=== PATIENT | female | born 1960 | race Caucasian/White ===

== ENCOUNTER 2016-08-02 21:51 | Inpatient (IN) | payer MEDICARE ==
[~2016-08-02] VITALS: Ht 157.5 cm; Wt 69.7 kg
--- NOTE | ~2016-08-02 | CN ---
PATIENT NAME:LANE ONEAL MEDICAL RECORD: [id number] : 62 LOCATION:[facility].2102 ADMIT DATE: 08/02/16 ACCOUNT: [id number] CONSULTING PHYSICIAN: MOI HANKINS MD REFERRING PHYSICIAN: FAIZAN SCOTT MD DATE OF CONSULTATION: 08/03/2016 Consultation Note CONSULT REQUESTING PHYSICIAN: Faizan Scott MD REASON FOR CONSULTATION: Acute exacerbation of chronic obstructive pulmonary disease and asthma. HISTORY OF PRESENT ILLNESS: Ms. Oneal is a 56-year-old female, who has a history of asthma and COPD and she states she still everyday smoker. According to the patient, she is sick for the last 1-1/2 week. Initially, she was tired. She has allergy. She was coughing and wheezing. The cough was mainly dry. She has shortness of breath with mild exertion. When she coughs, she has a pleuritic type of chest pain. The patient came into the ER last night for further evaluation and admitted for COPD exacerbation. REVIEW OF SYSTEMS: Mainly in the history of present illness. PAST MEDICAL HISTORY: 1. History of rheumatic fever. 2. History of rheumatic heart disease. 3. History of Sydenham chorea. 4. History of arthritis. 5. History of pulmonary embolism 2 years ago. PAST SURGICAL HISTORY: 1. She has a liver biopsy. 2. She has a cholecystectomy. ALLERGIES: SHE IS ALLERGIC TO IV DYE, SULFA, PENICILLIN AND LATEX. PRESENT MEDICATIONS: On [employer] was reviewed. PERSONAL AND SOCIAL HISTORY: The patient is still smoking 1 pack per day. She is a nondrinker. FAMILY HISTORY: Noncontributory. PHYSICAL EXAMINATION: GENERAL: Now, the patient is lying comfortably in bed. She is not in acute distress. VITAL SIGNS: The blood pressure is 118/87, pulse is 89, respirations 18, temperature 98.1, and SPO2 is 93% on 2 liters nasal cannula. HEENT: Conjunctivae are pink. Sclerae nonicteric. NECK: Supple, no JVD. CHEST: There is prolonged expiration with wheezing. There are no crackles. HEART: Rhythm regular, a grade II/ systolic murmur. ABDOMEN: Soft. Bowel sounds present. No hepatosplenomegaly. RECTAL: Deferred. CONSULT REPORT [id number] LANE ONEAL EXTREMITIES: No cyanosis, no clubbing. CENTRAL NERVOUS SYSTEM: The patient is awake and alert. There is no obvious cranial nerve abnormality. The gait was not tested. LABORATORY DATA: CBC: WBC 5.6, hemoglobin 16.3, hematocrit 52, the platelet count is 174. Chemistry: Sodium 140, potassium 4.5, BUN is 7, creatinine 0.8. Liver enzymes within normal range. The proBNP 219. Albumin is 3.3. CHEST RADIOGRAPH: There is hyperinflation. There are no acute infiltrate. IMPRESSION: 1. Acute exacerbation of chronic obstructive pulmonary disease secondary to #2. 2. Tracheobronchitis. 3. Asthma, chronic obstructive pulmonary disease overlap syndrome. 4. Dyspnea. 5. Tobacco dependence syndrome. 6. History of pulmonary embolism. 7. History of rheumatic heart disease. 8. Gastroesophageal reflux disease. RECOMMENDATION: 1. Albuterol/ipratropium nebulizer. 2. Brovana and budesonide nebulizer. 3. Discontinue Advair. 4. Adjust the dose of methylprednisolone IV. 5. Follow up labs and chest radiograph in the morning. The patient's D-dimer is negative, less likely pulmonary embolism. Discontinue the CTA of the chest. Dr. Scott, once again thanks for involving me in the care of Ms. Oneal. TRANSINT:[id number] Voice Confirmation ID: [id number] DOCUMENT ID: [id number] MOI HANKINS MD CC: FAIZAN SCOTT MD [id number] DICTATION DATE: 08/03/16 140 FIXTURE MAKER: 08/03/16 1651 ADM IN [place] [id number] [place] [address]
--- NOTE | ~2016-08-02 | EC ---
PATIENT:LANE ONEAL DATE OF SERVICE: 08/02/16 SEX: F MEDICAL RECORD: [id number] DATE OF : 62 LOCATION:D.M2 D.210 AGE OF PATIENT: 56 ADMISSION DATE: 08/02/16 REFERRING PHYSICIAN: INTERPRETING PHYSICIAN: KADIE WOMACK MD ECHOCARDIOGRAM REPORT ECHO CHARGES 4 ECHO COMPLETE CLINICAL DIAGNOSIS: DYSPNEA,CHEST PAIN HX OF RHEUMATIC FEVER ECHOCARDIOGRAPHIC MEASUREMENTS (adult normal given) AC root (d.<3.7cm) 3.1 LV Septum d (<1.2 cm> 1.4 Valve Excursion 1.9 LV Septum (systole) 1.5 Left Atria (s.<4.0cm> 3.2 LVPW d(<1.2cm) 1.4 RV (d.<2.3cm) 2.8 LVPW (sytole) 1.7 LV diastole(<5.6CM) 4.4 MV E-F(>70mm/sec) LV systole 2.8 LVOT Diameter 1.6 MV exc.(>10mm) 1.8 Est.ejection fraction (50-75%) Pericardial Effusion N DOPPLER: LVIT A 93.0 E 119 LA RVSP 21 LVOT 128 AOP1/2T Asc. Ao 174 RVOT 73 RA PA 148 AV Gradient Peak 12.13 AV Mean 6.76 AV Area 1.5 MV Gradient Peak 9.03 MV Mean 3.83 MV Area COMMENTS: Senior Cytotechnologist: Alexia KWOK Armature Coil Winder:Federica Johnson TAPE# PACS DATE OF SERVICE: 08/03/2016 FINDINGS: 1. Left ventricular chamber size is within normal limits. Left ventricular systolic function is normal. Overall ejection fraction estimated at 60%. 2. Left atrium, right atrium, right ventricular chamber sizes are within normal limits. 3. Valvular structures have normal structure and motion. 4. Doppler interrogation reveals mild mitral regurgitation, mild tricuspid regurgitation, no other valvular insufficiency or stenosis. ECHOCARDIOGRAM REPORT [id number] LANE ONEAL 5. No evidence of pericardial effusion or left ventricular thrombus. TRANSINT:[id number] Voice Confirmation ID: [id number] DOCUMENT ID: [id number] KADIE WOMACK MD CC: [id number] DICTATION DATE: 08/04/161742 WATERSIDE WORKER: 08/05/16 0336 ADM IN [facility] [address] [facility] [place] [id number]
[2016-08-02 22:58] LABS: BASOPHILS 0.4 % (0-2); EOSINOPHILS 1.2 % (0-7); HEMOGLOBIN 16.3 g/dL (12-16); IMMATURE GRANULOCYTES 0.2 % (0-5); LYMPHOCYTES 36.7 % (15-50); MCH 31.1 pg (26.0-34.0); MCHC 31.3 g/dL (31.0-37.0); MCV 99.2 fL (80.0-100.0); MEAN PLATELET VOLUME 9.5 fL (7.4-10.4); MONOCYTES 8.5 % (2-11); PLATELET COUNT 174 10x3/uL (130-400); RBC 5.24 10x6/uL (4.00-5.40); RDW 13.5 % (11.5-14.5); WBC 5.6 10x3/uL (4.8-10.8)
[2016-08-02 23:09] LABS: ALBUMIN 3.3 g/dL (3.4-5.0); ALKALINE PHOSPHATASE 87 U/L (46-116); ALT (SGPT) 18 U/L (10-68); BILIRUBIN - TOTAL 0.59 mg/dL (0.2-1.3); CALC OSMOLALITY 276 mosm/kg (275-300); CALCIUM 8.8 mg/dL (8.5-10.1); CARBON DIOXIDE 33.3 mmol/L (21.0-32.0); CHLORIDE - SERUM 103 mmol/L (98-107); CREATININE - SERUM 0.8 mg/dL (0.6-1.3); GLUCOSE 90 mg/dL (74-106); POTASSIUM - SERUM 4.5 mmol/L (3.5-5.1); PROTEIN - SERUM 6.8 g/dL (6.4-8.2); SODIUM 140 mmol/L (136-145); UREA NITROGEN 7 mg/dL (7-18); eGFR NON AFRICAN AMERICAN 79 mL/min (90-120)
[2016-08-02 23:17] LABS: PRO BNP 219 pg/mL (0-125); TROPONIN-I < 0.017 ng/mL (0.000-0.060)
[2016-08-03] VITALS (7 sets, daily range): BP systolic 116–168; BP diastolic 52–94; BMI 25.6
[2016-08-03] MEDS ORDERED: CORGARD40 MG PO (01:44)
[2016-08-03] MEDS ORDERED: K-DUR20 MEQ PO (01:45)
[2016-08-03] MEDS ORDERED: SINGULAIR10 MG PO (01:46)
[2016-08-03] MEDS ORDERED: FUROSEMIDE20 MG PO (01:46)
[2016-08-03] MEDS ORDERED: ADVAIR 500/501 DISK INH (01:47)
[2016-08-03] MEDS ORDERED: PROVENTIL/2.5 MG/3 M INH (01:48)
[2016-08-03] MEDS ORDERED: MUCINEX1200 MG/BO PO (01:49)
[2016-08-03] MEDS ORDERED: PROTONIX20 MG PO (01:50)
[2016-08-03] MEDS ORDERED: CARAFATE1 G/10 ML PO (01:50)
[2016-08-03] MEDS ORDERED: OMEPRAZOLE40 MG PO (01:51)
[2016-08-03] MEDS ORDERED: PAXIL20 MG PO (01:52)
[2016-08-03] MEDS ORDERED: XANAX2 MG PO (01:52)
[2016-08-03] MEDS ORDERED: NYSTATIN ORAL SU5 ML PO (01:55)
[2016-08-03] MEDS ORDERED: NYSTATIN OINTME15 GM TOPICAL (01:56)
[2016-08-03] MEDS ORDERED: ZANAFLEX4 MG PO (01:57)
[2016-08-03] MEDS ORDERED: VITAMIN B-1000 MCG/M (02:07)
--- NOTE | 2016-08-03 04:08 | NUR ---
PT C/O BACK PAIN, GAVE NORCO 7.5. WILL CONTINUE TO MONITOR
--- NOTE | 2016-08-03 07:19 | NUR ---
0705-AM ROUNDING DONE WITH PATIENT SITTING UP IN THE BED WITH COMPLAINTS OF THROAT STARTING TO HURT "A LITTLE MORE THAN LAST NIGHT". ON 2L PER NC. SALINE LOCK SEEN TO RIGHT WRIST, ORANGE CAP PLACED. WILL MONITOR.
--- NOTE | 2016-08-03 08:00 | NUR ---
NORCO GIVEN FOR PAIN 9/10 TO HEAD, BACK, AND NECK.
--- NOTE | 2016-08-03 14:40 | NUR ---
BILATERAL SCD'S PLACED ON PATIENT ALONG WITH HEART MONITOR.
--- NOTE | 2016-08-03 15:01 | NUR ---
ON HEART MONITOR SHOWING SR,
--- NOTE | 2016-08-03 15:06 | NUR ---
CALL PLACED TO AMINA DAHL APN R/T B/P 116/68 AND ANGE. AWAITING CALL BACK.
--- NOTE | 2016-08-03 15:32 | NUR ---
SPOKE WITH DR FRANKS AND AMINA DAHL APN AND WILL HOLD ANGE TODAY.
--- NOTE | 2016-08-03 17:33 | NUR ---
SITTING UP IN BED EATING SUPPER, SCD'S OFF AT PRESENT TIME. WILL CONTINUE TO MONITOR.
--- NOTE | 2016-08-03 22:37 | NUR ---
NURSING ROUNDS 21:00 - PT AWAKE, ALERT, ORIENTED, STATING THE UPDRAFT HAS HELPED QUITE A BIT. PT IS C/O NOT BEING ABLE TO SLEEP R/T THE STEROIDS. PT DENIES ANY OTHER NEEDS OR CONCERNS. CONTINUE TO MONITOR CLOSELY.
--- NOTE | 2016-08-04 01:53 | NUR ---
PT AWAKE, ALERT, ORIENTED, C/O NOT BEING ABLE TO SLEEP. REQUESTED FOOD, GAVE HER A TURKEY SANDWICH AND GRAPES, AND [place] [place] [employer]. PT DENIES ANY OTHER NEEDS. CONTINUE TO MONITOR CLOSELY.
[2016-08-04 03:42] VITALS: BP 127/77
[2016-08-04 05:26] LABS: BASOPHILS 0 % (0-2); EOSINOPHILS 0 % (0-7); HEMATOCRIT 48.1 % (36.0-48.0); HEMOGLOBIN 15.1 g/dL (12-16); IMMATURE GRANULOCYTES 0.2 % (0-5); LYMPHOCYTES 9.5 % (15-50); MCH 30.3 pg (26.0-34.0); MCHC 31.4 g/dL (31.0-37.0); MEAN PLATELET VOLUME 10.1 fL (7.4-10.4); MONOCYTES 3.5 % (2-11); NEUTROPHILS 86.8 % (40-80); PLATELET COUNT 187 10x3/uL (130-400); RBC 4.98 10x6/uL (4.00-5.40); RDW 12.9 % (11.5-14.5)
[2016-08-04 05:41] LABS: MCV 96.6 fL (80.0-100.0)
[2016-08-04 05:44] LABS: ANION GAP 8.7 mmol/L (8-16); CALCIUM 8.6 mg/dL (8.5-10.1); CARBON DIOXIDE 30.5 mmol/L (21.0-32.0); MAGNESIUM - SERUM 1.9 mg/dL (1.8-2.4)
[2016-08-04 05:48] LABS: CREATININE - SERUM 1.1 mg/dL (0.6-1.3); POTASSIUM - SERUM 5.2 mmol/L (3.5-5.1)
[2016-08-04 08:53] VITALS: BP 154/87
--- NOTE | 2016-08-04 10:45 | NUR ---
0700- AM ROUNDING- RECEIVED REPORT FROM CLINICAL REVIEW SPECIALIST NURSE DEIDRE OSHEA. PT IS CURRENTLY IN BATHROOM. ON MONITOR SHOWING SR, HR 81. ON EP, WILL CHECK AM LABS AND TX PER PROTOCOL. 0N 02 AT 2L VIA HUMIDIFED O2 VIA NC. IV SEEN TO RIGHT WRIST THAT IS CURRENTLY SALINE LOCKED. PT IS ALERT AND ORIENTED. UP AD MICHAEL. NO NEED AT CURRENT TIME. WILL CONTINUE TO MONITOR AND CONTINUE WITH PLAN OF CARE.
[2016-08-04 12:48] VITALS: BP 147/81
[2016-08-04 16:21] VITALS: BP 133/84
--- NOTE | 2016-08-04 17:56 | NUR ---
PT IS CURRENTLY SITTING UP IN BED TALKING ON CELLPHONE. DENIES ANY NEED AT CURRENT TIME. WILL CONTINUE TO MONITOR.
[2016-08-04 19:00] VITALS: BP 157/85
--- NOTE | 2016-08-04 19:54 | NUR ---
ASSESSMENT COMPLETE, A&O. RESPERATIONS EVEN WITH 02 AT 2 LITER. IV TO RIGHT WRIST SL, SITE CLEAN AND DRY. PT DENIES PAIN OR NEEDS, BED LOW, CL IN REACH.
--- NOTE | 2016-08-04 20:50 | NUR ---
HS MEDS GIVEN, NORCO 1 TAB GIVEN FOR C/O PAIN. ATIVAN 0.5 MG GIVEN AT PT REQUEST FOR S/S ANXIETY. NO OTHER NEEDS VOICED AT THIS TIME.
[2016-08-05] VITALS: BP 145/76
--- NOTE | 2016-08-05 00:11 | NUR ---
SADDLE STITCHING MACHINE OPERATOR AT BEDSIDE TO OBTAIN VITALS, CALL LIGHT IN REACH. WILL CONTINUE TO WITH PLAN OF CARE.
--- NOTE | 2016-08-05 00:43 | NUR ---
NORCO 1 TAB GIVEN FOR C/O PAIN TO HEAD AND BACK, RATES PAIN AT A 9 ON PAIN SCALE.
[2016-08-05 04:00] VITALS: BP 146/80
[2016-08-05 05:14] LABS: BASOPHILS 0 % (0-2); EOSINOPHILS 0 % (0-7); HEMATOCRIT 48.4 % (36.0-48.0); HEMOGLOBIN 15.3 g/dL (12-16); IMMATURE GRANULOCYTES 0.5 % (0-5); LYMPHOCYTES 9.6 % (15-50); MCH 30.8 pg (26.0-34.0); MCHC 31.6 g/dL (31.0-37.0); MCV 97.4 fL (80.0-100.0); MEAN PLATELET VOLUME 10.1 fL (7.4-10.4); MONOCYTES 6.9 % (2-11); PLATELET COUNT 191 10x3/uL (130-400); RBC 4.97 10x6/uL (4.00-5.40); WBC 5.6 10x3/uL (4.8-10.8)
[2016-08-05 05:37] LABS: ANION GAP 7.9 mmol/L (8-16); CALCIUM 8.6 mg/dL (8.5-10.1); CARBON DIOXIDE 32.1 mmol/L (21.0-32.0); CREATININE - SERUM 1.1 mg/dL (0.6-1.3)
[2016-08-05 08:00] VITALS: BP 158/83
[2016-08-05 12:00] VITALS: BP 121/66
--- NOTE | 2016-08-05 12:18 | NUR ---
ADMINISTERED 0.5MG OF ATIVAN PER PT REQUEST. PT IN BED, FIXING TO EAT LUNCH, PT DENIES ANY OTHER NEEDS AT THIS TIME. CALL LIGHT IN REACH, NAD NOTED, WILL CONTINUE TO MONITOR.
[2016-08-05 12:20] VITALS: Ht 157.5 cm; Wt 69.7 kg
[2016-08-05 16:00] VITALS: BP 148/77
[2016-08-05 20:00] VITALS: BP 125/68
--- NOTE | 2016-08-05 20:24 | NUR ---
PT AWAKE, ALERT, ORIENTED, DENIES ANY ACUTE NEEDS. PT STATES SHE IS TIRED FROM NOT BEING ABLE TO SLEEP BUT WAS ABLE TO REST SOME TODAY. CONTINUE TO MONITOR CLOSELY. BED LOW, CALL LIGHT IN REACH, SIDE RAILS X 2, TELEMETRY HAS BEEN D/C'D.
[2016-08-06] VITALS: BP 131/73
--- NOTE | 2016-08-06 00:34 | NUR ---
PT AWAKE, ALERT, ORIENTED, DENIES ANY NEEDS. PT STILL C/O A HEADACHE, STATING THAT NOTHING HELPS. PRN NORCO GIVEN. CONTINUE TO MONITOR CLOSELY.
[2016-08-06 04:00] VITALS: BP 129/72
[2016-08-06 04:45] LABS: BASOPHILS 0 % (0-2); EOSINOPHILS 0 % (0-7); HEMATOCRIT 49.2 % (36.0-48.0); HEMOGLOBIN 15.4 g/dL (12-16); IMMATURE GRANULOCYTES 0.4 % (0-5); LYMPHOCYTES 20.1 % (15-50); MCH 30.6 pg (26.0-34.0); MCHC 31.3 g/dL (31.0-37.0); MCV 97.8 fL (80.0-100.0); MONOCYTES 14.1 % (2-11); NEUTROPHILS 65.4 % (40-80); PLATELET COUNT 179 10x3/uL (130-400); RBC 5.03 10x6/uL (4.00-5.40); RDW 13.2 % (11.5-14.5); WBC 6.8 10x3/uL (4.8-10.8)
[2016-08-06 05:00] LABS: ANION GAP 6.3 mmol/L (8-16); CALCIUM 8.2 mg/dL (8.5-10.1); CARBON DIOXIDE 34.3 mmol/L (21.0-32.0); CREATININE - SERUM 0.9 mg/dL (0.6-1.3); POTASSIUM - SERUM 3.6 mmol/L (3.5-5.1)
--- NOTE | 2016-08-06 05:23 | NUR ---
PT AWAKE, ALERT, ORIENTED, WALKING AROUND, DENIES ANY NEEDS. CONTINUE TO MONITOR CLOSELY.
--- NOTE | 2016-08-06 07:33 | NUR ---
PT IS RESTING IN BED WITH EYES OPEN. ALERT AND ORIENTED X 3. DENIES ACUTE DISCOMFORT AT THIS TIME. NO SOB NOTED. 02 IS ON @ 2LPM PER NC. RIGHT WRIST SALINE LOCK NOTED. NO REDNESS OR EDEMA NOTED AT THE INSERTION SITE. SR'S ARE UP X 2 IN BED. CALL LIGHT AND BEDSIDE TABLE ARE WITHIN EASY REACH.
[2016-08-06 08:00] VITALS: BP 140/80
--- NOTE | 2016-08-06 09:19 | NUR ---
PT NOTED WITH A RASH ON HER UPPER TRUNK AND ARMS. AMINA DAHL APN NOTIFIED. NEW ORDER NOTED.
[2016-08-06] MEDS ORDERED: PREDNISONE10 MG PO ×3 (11:20→12:23)
[2016-08-06 12:00] VITALS: BP 120/65
--- NOTE | 2016-08-06 12:01 | NUR ---
PT RESTING IN BED WITH EYES OPEN. NO NEEDS VOICED. PENDING DC HOME THIS AFTERNOON.
[2016-08-06] MEDS ORDERED: IPRAT-ALBUT 0.5-3 ML INH (13:55)
--- NOTE | 2016-08-06 14:03 | NUR ---
PT RESTING AND EXERCISING PULSE OX DONE. PT OFF O2 IN HER ROOM X 5 MINS RESTING WAS 97. AFTER AMBULATING 150 FT, IT DROPPED TO 85 PERCENT.
--- NOTE | 2016-08-06 14:41 | NUR ---
Patient Name: LANE ONEAL Admission Status: ER Accout number: [id number] Admission Date: 08-02-2016 : 1960 Admission Diagnosis:SHORTNESS OF BREATH Attending: JOHNSON Current LOS: 4 Anticipated DC Date: 08-06-2016 Planned Disposition: Home Primary Insurance: MEDICARE A & B Discharge Planning Comments: * Is the patient Alert and Oriented? Yes 0 * How many steps to enter\exit or inside your home? 2 0 * PCP DR. CHOWDARY 0 * Pharmacy [facility] ON [address] 0 * Preadmission Environment Home with Family 0 * ADLs Independent 0 * Equipment Nebulizer Oxygen 0 * Other Equipment HOME OXYGEN ONLY [facility] - MEDICAL EQUIPMENT PROVIDER PREFERENCE 0 * List name and contact numbers for known caregivers / representatives who currently or will assist patient after discharge: SHIRA ONEAL, SPOUSE, 0 * Community resources currently utilized None 0 * Please name any agencies selected above. NONE 0 * Additional services required to return to the preadmission environment? No 0 * Can the patient safely return to the preadmission environment? Yes 0 * Has this patient been hospitalized within the prior 30 days at any hospital? No 0 CM RECEIVED ORDER FOR HOME OXYGEN, MET WITH PT IN ROOM TO DISCUSS DISCHARGE PLANNING AND NEEDS. PT REPORTS LIVING AT HOME INDEPENDENTLY WITH HER MOTHER; PT'S SPOUSE IS IN [facility] AT THIS TIME. PT HAS NEBULIZER AND OXGYEN FROM [facility] BUT NO PORTABLE OXYGEN. PT HAS NO SERVICES ASSISTING IN THE HOME. CM DISCUSSED AVAILABILITY OF HOME HEALTH, REHAB SERVICES AND MEDICAL EQUIPMENT. PT DENIES DISCHARGE NEEDS OTHER THAN PORTABLE OXYGEN, REPORTS HER MOTHER WILL PICK HER UP FOR DISCHARGE HOME. CM SPOKE TO KENDRICK DAHL AND BEDSIDE NURSE AND REQUESTED OXYGEN TESTING, PT 85 % ON ROOM AIR EXERTION. CM SPOKE TO CK AT [facility], , WHO REPORTS PT IS HOME OXYGEN PT AND THEY WILL DELIVER PORTABLE OXYGEN TO PT'S ROOM FOR DISCHARGE HOME THIS AFTERNOON. PT REPORTS HER MOTHER IS PICKING HER UP THIS AFTERNOON WHEN HER MOTHER GETS OFF FROM WORK. IMPORTANT MESSAGE FROM MEDICARE PROVIDED AND EXPLAINED. CM FAXED OXYGEN TESTING NOTE TO [facility] AT [phone]. Onion Farmer: Bernardino Hicks
--- NOTE | 2016-08-06 14:58 | NUR ---
PT IS RESTING IN BED AWAITING OXYGEN DELIVERY TO DC HOME. NO NEEDS VOICED.
--- NOTE | 2016-08-06 15:18 | NUR ---
SALINE LOCK DC'D FROM RIGHT WRIST WITH CATH INTACT, PENDING DC HOME.
[2016-08-06 16:01] VITALS: BP 126/78
--- NOTE | 2016-08-06 17:07 | NUR ---
PT IS FEEDING SELF SUPPER IN HER ROOM. NO DISTRESS NOTED.
--- NOTE | 2016-08-06 18:39 | NUR ---
PT DISCHARGED TO HOME. DEPARTED UNIT WITH ALL BELONGINGS AND NURSE ESCORT VIA WC. DEPARTED GROUNDS VIA POV DRIVEN BY PTS MOTHER.
--- NOTE | 2016-08-08 07:48 | DS ---
PATIENT:LANE ONEAL :[birth year] MEDICAL RECORD: [id number] DISCHARGE SUMMARY ADMISSION DATE: 08/02/16 DISCHARGE DATE: 08/06/16 DATE OF ADMISSION: 08/02/2016 DATE OF DISCHARGE: 08/06/2016 ADMITTING DIAGNOSES: Asthma exacerbation, chronic obstructive pulmonary disease exacerbation, chest pain, back pain, nicotine dependence with withdrawal, history of pulmonary embolus. HOSPITAL COURSE: This is a lady of Dr. Hassan, admitted with diagnoses as outlined above. Details are well-outlined in the history of present illness H&P. All events, lab procedures, diagnostic testing are well documented in the records. The patient was admitted, appropriate home medicines continued. Lovenox started for DVT prophylaxis, Tussionex p.r.n. cough, Ativan for anxiety, nicotine patch. The patient placed on telemetry and PPI. CONSULTANTS: Dr. Eleazar Johnson, cardiology. She had an appointment with Dr. Johnson on the day of admission for cardiac eval. She was seen by him here. Stress test as planned as an outpatient. Her cardiac enzymes were negative. Echo showed EF of 60%, mild mitral regurgitation, mild tricuspid regurgitation. No other valvular insufficiency or stenosis. No effusion. No thrombus. Dr. Tucker was consulted for pulmonary management. His recommendations were followed. She was put on updrafts nebulized medicines, steroids. Overall, she improved. She did have a very mild rash on her left forearm treated with some oral Benadryl, was not on any antibiotics this stay. She is stable for discharge home today. PHYSICAL EXAMINATION: VITAL SIGNS: She is afebrile, pulse 66, respirations 16, blood pressure 140/80, O2 sat 98% on 2 liters. She has oxygen already set up at home. She is on 2 liters at night. She did ambulate and had some desats and her oxygen is arranged for home to use during the day as needed. This was discussed with Dr. Tucker and he is okay for her dismissal to home. She will have follow up with him in the office, followup with house calls. Initial chest x-ray showing emphysema without any acute cardiopulmonary disease. CT of the chest without contrast showing atherosclerotic calcification in the LAD, status post cholecystectomy. No other significant chest pathology. D-dimer was negative; therefore, we did not do a perfusion lung scan. Her CT chest was done without contrast because SHE IS ALLERGIC TO DYE. DISCHARGE DIAGNOSES: Asthma exacerbation, chronic obstructive pulmonary exacerbation, chest pain, back pain, nicotine dependence with withdrawal, history of pulmonary embolus, tracheobronchitis, history of rheumatic heart disease, gastroesophageal reflux disease. Please refer to med rec. Greater than 30 minutes was spent on this discharge. TRANSINT:[id number] Voice Confirmation ID: [id number] DOCUMENT ID: [id number] DISCHARGE SUMMARY REPORT [id number] LANE ONEAL Dictated By: AMINA DAHL RN I have interviewed/examined the above patient and agree with these documented findings. STEVE FORBES MD at 0748 CC: [id number] DICTATION DATE: 08/06/16 1525 DRY HOUSE WHEELER: 08/07/16 1117 DIS IN 08/06/16 [place] [id number] [place] [id number]
== END 2016-08-06 18:42 | disposition home or self-care (01) | DRG 191 ==
LOC: D.ER 21:51 → D.M2 23:41 → D.ER 08-03 00:01 → D.M2 08-03 00:01
PROVIDERS: Family Medicine; Internal Medicine Pulmonary Disease; ADMIT Family Medicine Adult Medicine
DX: J44.1 Chronic obstructive pulmonary disease with (acute) exacerbation (principal); J45.901 Unspecified asthma with (acute) exacerbation; F17.203 Nicotine dependence unspecified, with withdrawal; Z86.711 Personal history of pulmonary embolism; K21.9 Gastro-esophageal reflux disease without esophagitis; F41.9 Anxiety disorder, unspecified; I25.10 Atherosclerotic heart disease of native coronary artery without angina pectoris; E87.5 Hyperkalemia

== ENCOUNTER 2016-08-21 17:53 | Inpatient (IN) | payer MEDICARE ==
[~2016-08-21] VITALS: Ht 157.5 cm; Wt 68.0 kg
[~2016-08-21 17:53] MED LIST: ADVAIR 500/501 DISK INH; CARAFATE1 G/10 ML PO; CORGARD40 MG PO; FUROSEMIDE20 MG PO; IPRAT-ALBUT 0.5-3 ML INH; K-DUR20 MEQ PO; MUCINEX1200 MG/BO PO; NYSTATIN OINTME15 GM TOPICAL; NYSTATIN ORAL SU5 ML PO; OMEPRAZOLE40 MG PO; PAXIL20 MG PO; PREDNISONE10 MG PO; PROTONIX20 MG PO; PROVENTIL/2.5 MG/3 M INH; SINGULAIR10 MG PO; VITAMIN B-1000 MCG/M; XANAX2 MG PO; ZANAFLEX4 MG PO
[2016-08-21 18:18] LABS: BASOPHILS 0.2 % (0-2); EOSINOPHILS 1.7 % (0-7); HEMATOCRIT 48.6 % (36.0-48.0); HEMOGLOBIN 15.4 g/dL (12-16); IMMATURE GRANULOCYTES 0.2 % (0-5); LYMPHOCYTES 22.9 % (15-50); MCHC 31.7 g/dL (31.0-37.0); MEAN PLATELET VOLUME 9.3 fL (7.4-10.4); MONOCYTES 11.1 % (2-11); NEUTROPHILS 63.9 % (40-80); PLATELET COUNT 161 10x3/uL (130-400); RBC 4.96 10x6/uL (4.00-5.40); RDW 13.6 % (11.5-14.5); WBC 8.5 10x3/uL (4.8-10.8)
[2016-08-21 18:31] LABS: ALBUMIN 3.3 g/dL (3.4-5.0); ALKALINE PHOSPHATASE 91 U/L (46-116); ALT (SGPT) 83 U/L (10-68); BILIRUBIN - TOTAL 0.71 mg/dL (0.2-1.3); CALC OSMOLALITY 275 mosm/kg (275-300); CALCIUM 8.8 mg/dL (8.5-10.1); CARBON DIOXIDE 32.6 mmol/L (21.0-32.0); CHLORIDE - SERUM 101 mmol/L (98-107); CREATININE - SERUM 0.8 mg/dL (0.6-1.3); GLUCOSE 103 mg/dL (74-106); POTASSIUM - SERUM 4.5 mmol/L (3.5-5.1); PROTEIN - SERUM 7.2 g/dL (6.4-8.2); SODIUM 137 mmol/L (136-145); UREA NITROGEN 17 mg/dL (7-18); eGFR NON AFRICAN AMERICAN 79 mL/min (90-120)
[2016-08-21 18:41] LABS: PRO BNP 88 pg/mL (0-125)
[2016-08-21 23:55] VITALS: BP 139/78; BMI 27.5
--- NOTE | 2016-08-22 00:22 | NUR ---
PT WAS ASSESSED AT TIME OF ADMIT. SHE IS ALERT AND ORIENTED, ABLE TO VERBALIZE NEEDS. SHE IS VERY SOB WITH WHEEZING AND DIMINISHED LUNG SOUNDS. HER COUGH IS NO PRODUCTIVE. SHE IS ABLE TO GET UP TO THE BATHROOM TO VOID AND SELF TURN FOR COMFORT. ALL PAPER WORK IS DONE AND SHE IS C/O PAIN SO THE SUPER VISOR WAS CALLED AND I AM WAITING FOR A RETURN CALL. THE BED IS LOW, RAILS UP X'S 2 WITH THE CALL LIGHT AT HAND.
[2016-08-22 04:00] VITALS: BP 130/80
--- NOTE | 2016-08-22 07:20 | NUR ---
REPORT RECEIVED FROM NUCLEAR EQUIPMENT RESEARCH ENGINEER NURSE. CALL LIGHT IN REACH.
--- NOTE | 2016-08-22 08:54 | NUR ---
SOLUMEDROL IVP PER ORDER. PASSWORD OBTAINED. OFFERED SCDs BUT REFUSED. CALL LIGHT IN REACH. WILL CONTINUE WITH PLAN OF CARE.
--- NOTE | 2016-08-22 10:00 | NUR ---
NO NEEDS VOICED AT THIS TIME. DR. MAS IS IN ROOM AT THIS TIME. CALL LIGHT IN REACH.
[2016-08-22 12:40] VITALS: BP 140/80
--- NOTE | 2016-08-22 12:50 | NUR ---
DR. BEGUM IN ROOM TO SEE PATIENT.
[2016-08-22] MEDS ORDERED: XANAX2 MG PO (13:41)
--- NOTE | 2016-08-22 14:33 | NUR ---
AFTERNOON MEDS ADMINISTERED PER ORDER. CALL LIGHT IN REACH.
[2016-08-22 15:50] VITALS: BP 135/87
--- NOTE | 2016-08-22 16:20 | NUR ---
AMBULATING IN HALLWAY ADLIB. TOLERATING WELL.
--- NOTE | 2016-08-22 17:22 | HP ---
PATIENT: LANE ONEAL MEDICAL RECORD: [id number] ACCOUNT: [id number] LOCATION:D.[facility] : [birth year] ADMISSION DATE: 08/21/16 HISTORY AND PHYSICAL EXAMINATION HISTORY OF PRESENT ILLNESS: Ms. Oneal is a 56-year-old white female patient of Dr. Hassan, who presents with shortness of breath, cough and fever, was hospitalized here a few weeks ago for similar type issues. She, upon discharge, has continued to smoke, although she has cut back to about 3/4 of a pack per day. Fever has been up to 101. Her cough has been nonproductive, feels like she can bring anything up. Her chest x-ray is negative; this appears more like a COPD exacerbation. She is admitted at this time for further evaluation and therapy. PAST MEDICAL HISTORY: Significant for known COPD, GERD, depression, chronic low back pain. PAST SURGICAL HISTORY: Includes gallbladder surgery, liver biopsy, and sinus surgery. ALLERGIES OR INTOLERANCES: INCLUDE SULFA, LATEX, PENICILLIN AND IODINE. HOME MEDICATIONS: Include tizanidine 4 mg t.i.d., albuterol updrafts, nadolol 40 mg daily, paroxetine 20 mg a day, potassium 20 mEq a day, furosemide 20 mg a day, Mucinex, Advair 500/50 b.i.d., Singulair 10 a day, Carafate 1 gram a.c. and h.s., pantoprazole 20 mg a day, tapering dose of prednisone, which she has finished, and B12 of 1000 mcg monthly. FAMILY HISTORY: Noncontributory. SOCIAL HISTORY: She is a smoker. She is not down to about 3/4 of a pack per day, does not drink. REVIEW OF SYSTEMS: Has been fever, nonproductive cough, some chest tightness, which is worse with coughing, no abdominal pain, no nausea or vomiting. Appetite has been fair. No edema. PHYSICAL EXAMINATION: HEENT: Head is normocephalic, sclerae nonicteric. NECK: Soft and supple. LUNGS: With scattered wheezes and rhonchi. ABDOMEN: Soft. EXTREMITIES: Lower extremities, no edema. NEUROLOGIC: Without any gross focal deficits. IMPRESSION: 1. Chronic obstructive pulmonary disease exacerbation, worsened hospitalization for pneumonia and chronic obstructive pulmonary disease. 2. Continues to smoke. PLAN: Admit, pulmonary consult, IV antibiotics, IV pulmonary toilet, DVT prophylaxis. See orders for plan. TRANSINT:[id number] Voice Confirmation ID: [id number] DOCUMENT ID: [id number] HISTORY AND PHYSICAL [id number] L[address] ONEAL MATTHEW DO at 1722 CC: [id number] DICTATION DATE: 08/22/16 1156 READING AIDE: 08/22/16 1617 ADM IN [facility] [address] [place] [id number]
--- NOTE | 2016-08-22 18:30 | NUR ---
NO CHANGES IN INITIAL ASSESSMENT. CALL LIGHT IN REACH. WILL CONTINUE WITH PLAN OF CARE.
[2016-08-22 20:00] VITALS: BP 131/75
--- NOTE | 2016-08-22 20:00 | NUR ---
ASSESSMENT PER FLOWSHEET. PT ON ROOM AIR. SALINE LOCK PATENT RT ARM SITE CLEAR. UP AD MICHAEL IN ROOM THEN IN HALLWAY.
--- NOTE | 2016-08-22 21:54 | NUR ---
MEDS GIVEN PER JUN. C/I PAIN IN BACK NORCO 10 TAB ONE PO GIVEN FOR PAIN CONTROL.
--- NOTE | 2016-08-23 | NUR ---
REMAINS AWAKE TALKING ON HER CELL PHONE. AMBULATES IN HALLS.
[2016-08-23 00:09] VITALS: BP 126/72
--- NOTE | 2016-08-23 02:00 | NUR ---
REMAINS AWAKE WALKS AROUND HOSPITAL AREA. TALKING ON HER PHONE.
--- NOTE | 2016-08-23 03:00 | NUR ---
RETURNS TO HER ROOM STATES PULLED IV AND NOW LEAKING RESITED IV TO LEFT ARM #20 ANGIOCATH X1 ATTEMPT. REMOVED OLD IV SITE.
[2016-08-23 04:00] VITALS: BP 123/69
--- NOTE | 2016-08-23 07:44 | NUR ---
AWAKE AND ALERT. ORIENTED X3. NO C/O AT THIS TIME. REPORTS BACK PAIN AT LEVEL 9. LUNGS ARE DIMINISHED THROUGHOUT, NO COUGH NOTED. SKIN IS INTACT WITHOUT REDNESS. SL TO LEFT WRIST AREA PATENT WITHOUT REDNESS AT INSERTION SITE. DENIES NEEDS.
[2016-08-23 07:59] VITALS: BP 119/60
[2016-08-23 09:39] LABS: BASOPHILS 0 % (0-2); EOSINOPHILS 0 % (0-7); HEMATOCRIT 43.1 % (36.0-48.0); HEMOGLOBIN 13.4 g/dL (12-16); IMMATURE GRANULOCYTES 0.2 % (0-5); LYMPHOCYTES 7.8 % (15-50); MCH 30.5 pg (26.0-34.0); MCHC 31.1 g/dL (31.0-37.0); MCV 98.2 fL (80.0-100.0); MEAN PLATELET VOLUME 10.2 fL (7.4-10.4); MONOCYTES 4.8 % (2-11); NEUTROPHILS 87.2 % (40-80); PLATELET COUNT 191 10x3/uL (130-400); RBC 4.39 10x6/uL (4.00-5.40); RDW 13.5 % (11.5-14.5); WBC 6.4 10x3/uL (4.8-10.8)
--- NOTE | 2016-08-23 10:00 | NUR ---
REQUESTED AND GIVNE ONE HYDROCODONE PO FOR C/O BACK PAIN LEVEL 9. WILL MONITOR.
[2016-08-23 10:11] LABS: ALBUMIN 3.1 g/dL (3.4-5.0); ANION GAP 12.7 mmol/L (8-16); BILIRUBIN - TOTAL 0.33 mg/dL (0.2-1.3); CALCIUM 8.6 mg/dL (8.5-10.1); CARBON DIOXIDE 26.7 mmol/L (21.0-32.0); POTASSIUM - SERUM 4.4 mmol/L (3.5-5.1); PROTEIN - SERUM 6.7 g/dL (6.4-8.2)
--- NOTE | 2016-08-23 11:00 | NUR ---
DRESSING CHANGED TO [place] AREA. WOUND IS BEEFY RED WITH JANE DRAIN IN PLACE. HAD MULTIPLE EPISODES OF DIARRHEA WHILE THIS WAS BEING DONE. SKIN CARE PER STAFF. LINENS CHANGED. ALSO HAD APPROXIMATLY 50 CC OF EMESIS WITH ACTIVITY.
--- NOTE | 2016-08-23 12:00 | NUR ---
FSBS 211. GIVEN 4 UNITS HUMALOG SUBQ PER SS. WILL MONITOR.
[2016-08-23 12:07] VITALS: BP 126/73
[2016-08-23 13:11] VITALS: Ht 157.5 cm; Wt 68.0 kg
[2016-08-23 16:32] VITALS: BP 145/88
--- NOTE | 2016-08-23 17:39 | NUR ---
Patient Name: LANE ONEAL Admission Status: ER Accout number: [id number] Admission Date: 08-21-2016 : 1960 Admission Diagnosis: Attending: RAN Current LOS: 2 Anticipated DC Date: 08-25-2016 Planned Disposition: Home Primary Insurance: MEDICARE A & B Discharge Planning Comments: CM MET WITH PATIENT REGARDING D/C NEEDS AND PLANS. PATIENT STATED SHE LIVES WITH HER MOTHER (XIOMARA) AND IT IS SAFE. PATIENT HAS 2 STEPS TO ENTER HOME AND NO STAIRS INSIDE. PATIENT IS INDEPENDENT WITH HER CARE AND HAS A NEBULIZER, OXYGEN, PORTABLE O2, WHEELCHAIR, AND BUILT IN SHOWER CHAIR AT HER HOME. PATIENTS PCP IS DR. CHOWDARY AND USES [facility] [address] FOR HER PHARMACY. PATIENT WILL CONSIDER HOME HEALTH IF DOCTOR THINKS IT IS NEEDED. CM WILL CONTINUE TO FOLLOW PATIENT WITH D/C NEEDS AND PLANS. PCP DR[facility] [address]- [phone] SHIRA (SPOUSE) [phone] Family Literacy Coordinator: Nancy Francis Is the patient Alert and Oriented? Yes 0 * How many steps to enter\exit or inside your home? 2 0 * PCP DR. CHOWDARY 0 * Pharmacy [facility] [address] 0 * Preadmission Environment Home with Family 0 * ADLs Independent 0 * Equipment Nebulizer Oxygen Shower Chair Wheelchair 0 * Other Equipment PORTABLE OXYGEN 0 * List name and contact numbers for known caregivers / representatives who currently or will assist patient after discharge: SHIRA MATHEW (SPOUSE) [phone] 0 * Community resources currently utilized None 0 * Additional services required to return to the preadmission environment? Yes 0 * Can the patient safely return to the preadmission environment? Yes 0 * Has this patient been hospitalized within the prior 30 days at any hospital? Yes 0 Grand Total: 0
--- NOTE | 2016-08-23 19:04 | NUR ---
ATE ALL OF SUPPER. FSBS AT 1700 WAS 134. NO COVERAGE. DENIES NEEDS. NO CHANGES NOTED.
[2016-08-23 20:00] VITALS: BP 141/84
--- NOTE | 2016-08-23 20:00 | NUR ---
ASSESSMENT PER FLOWSHEET. WEARING O2 AT 2L/M PER NC. NO DISTRESS NOTED. SALINE LOCK PATENT LEFT ARM. SR UP X2 CALL LIGHT WITHIN REACH.
--- NOTE | 2016-08-23 21:20 | NUR ---
C/O BACK PAIN RATES PAIN LEVEL #6. NORCO 10 TAB ONE PO GIVEN FOR PAIN CONTROL.
--- NOTE | 2016-08-23 22:23 | NUR ---
REQUEST MED FOR BLOATING. BENTYL 10MG PO GIVEN FOR ABDOMINAL BLOATING.
--- NOTE | 2016-08-23 22:30 | NUR ---
UP AD MICHAEL IN HALLWAYS. TALKING ON PHONE.
[2016-08-24] VITALS: BP 133/76
--- NOTE | 2016-08-24 | NUR ---
REMAINS AWAKE TALKING ON HER CELL PHONE.
--- NOTE | 2016-08-24 02:02 | NUR ---
EYES CLOSED RESPIRATIONS WITH EASE AND UNLABORED.
[2016-08-24 04:00] VITALS: BP 119/68
[2016-08-24 07:02] LABS: BASOPHILS 0 % (0-2); EOSINOPHILS 0 % (0-7); HEMATOCRIT 43.5 % (36.0-48.0); HEMOGLOBIN 13.5 g/dL (12-16); IMMATURE GRANULOCYTES 0.2 % (0-5); LYMPHOCYTES 7.9 % (15-50); MCH 30.6 pg (26.0-34.0); MCV 98.6 fL (80.0-100.0); MONOCYTES 4.9 % (2-11); PLATELET COUNT 186 10x3/uL (130-400); RBC 4.41 10x6/uL (4.00-5.40); RDW 13.5 % (11.5-14.5)
[2016-08-24 07:16] LABS: WBC 4.7 10x3/uL (4.8-10.8)
[2016-08-24 07:19] LABS: ALBUMIN 2.7 g/dL (3.4-5.0); ANION GAP 9.4 mmol/L (8-16); BILIRUBIN - TOTAL 0.3 mg/dL (0.2-1.3); CALCIUM 8.5 mg/dL (8.5-10.1); CARBON DIOXIDE 29.5 mmol/L (21.0-32.0); CREATININE - SERUM 1.1 mg/dL (0.6-1.3); POTASSIUM - SERUM 4.9 mmol/L (3.5-5.1)
--- NOTE | 2016-08-24 07:19 | NUR ---
MEDS GIVEN PER JUN. BEDSIDE UPDRAFT TX GIVEN PER RT TECH.
--- NOTE | 2016-08-24 08:14 | NUR ---
AWAKE AND ALERT. ORIENTED X3. NO C/O AT THIS TIME. LUNGS ARE DIMINISHED THROUGHOUT LUNG ADAN. EXPIRATORY WHEEZES NOTED TO LEFT LOBES, OCCASSIONAL DRY COUGH NOTED. SKIN IS INTACT WITHOUT REDNESS. DENIES NEEDS AT THIS TIME.
[2016-08-24 08:18] VITALS: BP 117/59
[2016-08-24 08:22] LABS: IMMUNOGLOBULIN E 99 IU/mL (0-100)
--- NOTE | 2016-08-24 10:00 | NUR ---
UP TO BR PER SELF. REPORTS PAIN IMPROVED AT THIS TIME. DENIES NEEDS.
[2016-08-24 11:52] VITALS: BP 163/114
--- NOTE | 2016-08-24 14:00 | NUR ---
SITTING UP IN BED EATING THE REST OF HER LUNCH. DENIES NEEDS. NO C/O AT THIS TIME. REFUSED OFFER OF BATH AGAIN AT THIS TIME.
--- NOTE | 2016-08-24 15:07 | NUR ---
C/O BACK AND RIB PAIN LEVEL 9. GIVEN 15MG TORADOL SLOW IVP FOR SAME. WILL MONITORM .
[2016-08-24 16:28] VITALS: BP 161/83
--- NOTE | 2016-08-24 16:45 | NUR ---
PRN PAIN MEDICATION ADMINISTERED PER PT COMPLAINTS OF 10/10 BACK PAIN. WILL REASSESS.
--- NOTE | 2016-08-24 18:52 | NUR ---
SUPPER TRAY REMAINS AT BEDSIDE. SHE WILL EAT IT LATER. DENIES NEEDS. REPORTS PAIN IMPROVED AFTER HYDROCODONE. NO CHANGES NOTED.
[2016-08-24 20:00] VITALS: BP 161/83
--- NOTE | 2016-08-24 20:00 | NUR ---
ASSESSMENT PER FLOWSHEET. IV PATENT LEFT FOREARM SALINE LOCK. SITE CLEAR. UP AD MICHAEL IN ROOM. FRIEND AT BEDSIDE.
--- NOTE | 2016-08-24 21:00 | NUR ---
MEDS GIVEN PER MAR.
--- NOTE | 2016-08-25 | NUR ---
VISITING WITH FRIEND AT BEDSIDE EATING CHICKEN.
--- NOTE | 2016-08-25 01:03 | NUR ---
C/O BACK PAIN RATES PAIN LEVEL #6 CHRONIC ACHING. NORCO TAB ONE PO GIVEN FOR PAIN CONTROL.
[2016-08-25 04:00] VITALS: BP 141/80
[2016-08-25 05:58] LABS: BASOPHILS 0 % (0-2); EOSINOPHILS 0 % (0-7); HEMATOCRIT 45.6 % (36.0-48.0); HEMOGLOBIN 14.1 g/dL (12-16); IMMATURE GRANULOCYTES 0.2 % (0-5); LYMPHOCYTES 6.1 % (15-50); MCH 30.4 pg (26.0-34.0); MCHC 30.9 g/dL (31.0-37.0); MCV 98.3 fL (80.0-100.0); MEAN PLATELET VOLUME 10.2 fL (7.4-10.4); MONOCYTES 4.6 % (2-11); NEUTROPHILS 89.1 % (40-80); PLATELET COUNT 190 10x3/uL (130-400); RBC 4.64 10x6/uL (4.00-5.40); RDW 13.4 % (11.5-14.5); WBC 4.6 10x3/uL (4.8-10.8)
--- NOTE | 2016-08-25 06:07 | NUR ---
C/O BACK PAIN RATES LEVEL #6 TORADOL IVP GIVEN FOR PAIN CONTROL. PAKS=750 HUMALOG INSULIN 8 MUNITS GIVEN SUBC PER S/S.
[2016-08-25 06:28] LABS: BILIRUBIN - TOTAL 0.36 mg/dL (0.2-1.3); CALCIUM 8.6 mg/dL (8.5-10.1); CARBON DIOXIDE 28.9 mmol/L (21.0-32.0); CREATININE - SERUM 1.3 mg/dL (0.6-1.3); PROTEIN - SERUM 6.4 g/dL (6.4-8.2)
[2016-08-25 06:29] LABS: ANION GAP 12.1 mmol/L (8-16)
--- NOTE | 2016-08-25 07:15 | NUR ---
REPORT RECEIVED FROM TRAINING MGR NURSE. CALL LIGHT IN REACH.
[2016-08-25 07:56] VITALS: BP 161/91
--- NOTE | 2016-08-25 09:20 | NUR ---
ASESSSMENT COMPLETED PER DEIDRE BETH. REFUSES SCDs. CALL LIGHT IN REACH. WILL CONTINUE WITH PLAN OF CARE.
--- NOTE | 2016-08-25 11:58 | NUR ---
REQUESTING PAIN PILL. EXPLAINED TO AMILCAR THAT I WILL BRING IT SOON I FINISHED GIVING MEDS TO SOMEONE ELSE. SHE VERBALIZED UNDERSTANDING.
--- NOTE | 2016-08-25 12:19 | NUR ---
AM MEDS ADMINISTERED WITH XANAX PO. FSBS 171 SO 4 UNITS SUBQ TO RIGHT ARM. CALL LIGHT IN REACH.
[2016-08-25 12:34] VITALS: BP 169/90
--- NOTE | 2016-08-25 14:20 | NUR ---
RSTING WITH EYES CLOSED. RESP EVEN AND UNLABORED. CALL LIGHT IN REACH.
--- NOTE | 2016-08-25 15:44 | NUR ---
AFTERNOON MEDS ADMINISTERED. TORADOL SIVP PER C/O PAIN OF 9. CALL LIGHT IN REACH.
[2016-08-25 15:50] VITALS: BP 117/91
--- NOTE | 2016-08-25 17:43 | NUR ---
BENTYL PO. INSULIN PER SLIDING SCALE. CARAFATE PO.
--- NOTE | 2016-08-25 18:56 | NUR ---
NO CHANGES IN INITIAL ASSESSMENT. CALL LIGHT IN REACH. WILL CONTINUE WITH PLAN OF CARE.
[2016-08-25 19:00] VITALS: BP 133/78
--- NOTE | 2016-08-25 20:00 | NUR ---
ASSESSMENT PER FLOWSHEET. IV PATENT LEFT FOREARM SALINE LOCK. SITE CLEAR. HOB UP 35 DEGREES. O2 ON 2 L/M PER NC. NO DISTRESS.
--- NOTE | 2016-08-25 21:00 | NUR ---
MEDS GIVEN PER MAR. RESTING QUIETLY DENIES NEEDS.
[2016-08-26] VITALS: BP 174/81
--- NOTE | 2016-08-26 01:00 | NUR ---
C/O BACK NORCO TAB ONE PO GIVEN FOR PAIN CONTROL.
[2016-08-26 04:00] VITALS: BP 149/86
[2016-08-26 05:11] LABS: BASOPHILS 0 % (0-2); EOSINOPHILS 0 % (0-7); HEMATOCRIT 45.7 % (36.0-48.0); HEMOGLOBIN 14.4 g/dL (12-16); IMMATURE GRANULOCYTES 0.3 % (0-5); LYMPHOCYTES 8.3 % (15-50); MCH 30.4 pg (26.0-34.0); MCHC 31.5 g/dL (31.0-37.0); MCV 96.4 fL (80.0-100.0); MONOCYTES 5.1 % (2-11); NEUTROPHILS 86.3 % (40-80); PLATELET COUNT 180 10x3/uL (130-400); RBC 4.74 10x6/uL (4.00-5.40); RDW 13.1 % (11.5-14.5)
[2016-08-26 05:15] LABS: WBC 3.4 10x3/uL (4.8-10.8)
[2016-08-26 05:40] LABS: ALBUMIN 2.7 g/dL (3.4-5.0); ANION GAP 7.1 mmol/L (8-16); BILIRUBIN - TOTAL 0.33 mg/dL (0.2-1.3); CALCIUM 8.3 mg/dL (8.5-10.1); CARBON DIOXIDE 33.4 mmol/L (21.0-32.0); CREATININE - SERUM 1.1 mg/dL (0.6-1.3); POTASSIUM - SERUM 4.5 mmol/L (3.5-5.1); PROTEIN - SERUM 5.6 g/dL (6.4-8.2)
--- NOTE | 2016-08-26 06:11 | NUR ---
C/O BACK PAIN NORCO TAB ONE PO GIVEN FOR PAIN CONTROL.
--- NOTE | 2016-08-26 07:35 | NUR ---
SLEEPING AT THIS TIME WITH RESPIRATIONS EVEN AND NON LABORED. CALL LIGHT IN REACH AND DOOR OPEN. WILL CONTINUE WITH PLAN OF CARE.
[2016-08-26 07:54] VITALS: BP 186/91
--- NOTE | 2016-08-26 09:40 | NUR ---
ASSESSMENT PERFORMED PER FLOWSHEET. TANYA BECERRA IN ROOM ADMINISTERING MEDICATIONS. CALL LIGHT IN REACH, WILL CONTINUE WITH PLAN OF CARE.
--- NOTE | 2016-08-26 09:44 | NUR ---
AM MEDS ADMINISTERED. CALL LIGHT IN REACH.
[2016-08-26] MEDS ORDERED: Levaquin PO (10:20)
[2016-08-26] MEDS ORDERED: DIFLUCAN100 MG PO (10:20)
[2016-08-26] MEDS ORDERED: BENZONATATE200 MG PO (10:21)
[2016-08-26] MEDS ORDERED: PULMICORT0.5 MG/21 UPD (10:21)
[2016-08-26] MEDS ORDERED: BENTYL10 MG PO (10:25)
[2016-08-26] MEDS ORDERED: BROVANA15 MCG/2 M INH (10:25)
[2016-08-26] MEDS ORDERED: IPRAT-ALBUT 0.5-3 ML UPD (10:25)
[2016-08-26] MEDS ORDERED: DALIRESP500 MCG PO (10:26)
[2016-08-26] MEDS ORDERED: FLUTICASONE PRO16 GM NASAL (10:26)
[2016-08-26] MEDS ORDERED: FLORAJEN3 CAPS460 MG PO (10:26)
[2016-08-26] MEDS ORDERED: PREDNISONE20 MG PO (10:27)
--- NOTE | 2016-08-26 11:18 | NUR ---
ERON NOTE: CM MET WITH PATIENT, PT IS [facility]. PT CHOSE [facility] AND [facility]. REFERRAL SENT TO [facility] AND SPOKE WITH VALENTIN LOYA RN
--- NOTE | 2016-08-26 11:29 | NUR ---
D/C PAPERWORK REVIEWED AND IV TO LEFT FOREARM D/C WITH CATH TIP INTACT. DENIES QUESTIONS OR CONCERNS RELATED TO D/C. WILL GET DRESSED AND CALL FOR A CART WHEN PT IS PACKED UP.
== END 2016-08-26 12:15 | disposition home health service (06) | DRG 189 ==
LOC: D.ER 17:53 → D.MS 22:07
PROVIDERS: Emergency Medicine; Family Medicine; Internal Medicine Pulmonary Disease; ADMIT Family Medicine
DX: J96.22 Acute and chronic respiratory failure with hypercapnia (principal); J44.1 Chronic obstructive pulmonary disease with (acute) exacerbation; J45.901 Unspecified asthma with (acute) exacerbation; F17.203 Nicotine dependence unspecified, with withdrawal; J96.21 Acute and chronic respiratory failure with hypoxia; G47.33 Obstructive sleep apnea (adult) (pediatric); I10 Essential (primary) hypertension; I08.1 Rheumatic disorders of both mitral and tricuspid valves; M19.90 Unspecified osteoarthritis, unspecified site; K21.9 Gastro-esophageal reflux disease without esophagitis

== ENCOUNTER 2016-09-23 20:20 | Inpatient (IN) | payer MEDICARE ==
[~2016-09-23] VITALS: Ht 157.5 cm; Wt 84.3 kg
[~2016-09-23 20:20] MED LIST changes: +BENTYL10 MG PO; +BENZONATATE200 MG PO; +BROVANA15 MCG/2 M INH; +DALIRESP500 MCG PO; +DIFLUCAN100 MG PO; +FLORAJEN3 CAPS460 MG PO; +FLUTICASONE PRO16 GM NASAL; +IPRAT-ALBUT 0.5-3 ML UPD; +Levaquin PO; +PREDNISONE20 MG PO; +PULMICORT0.5 MG/21 UPD
[2016-09-23 21:11] LABS: BASOPHILS 0.2 % (0-2); EOSINOPHILS 1.5 % (0-7); HEMATOCRIT 45.1 % (36.0-48.0); HEMOGLOBIN 14.4 g/dL (12-16); IMMATURE GRANULOCYTES 0.2 % (0-5); LYMPHOCYTES 36.3 % (15-50); MCH 31.5 pg (26.0-34.0); MCHC 31.9 g/dL (31.0-37.0); MCV 98.7 fL (80.0-100.0); MEAN PLATELET VOLUME 9.3 fL (7.4-10.4); MONOCYTES 14.2 % (2-11); NEUTROPHILS 47.6 % (40-80); PLATELET COUNT 160 10x3/uL (130-400); RBC 4.57 10x6/uL (4.00-5.40); RDW 13.9 % (11.5-14.5); WBC 6.1 10x3/uL (4.8-10.8)
[2016-09-23 21:28] LABS: ALBUMIN 2.9 g/dL (3.4-5.0); ALKALINE PHOSPHATASE 66 U/L (46-116); ALT (SGPT) 23 U/L (10-68); BILIRUBIN - TOTAL 0.51 mg/dL (0.2-1.3); CALC OSMOLALITY 271 mosm/kg (275-300); CALCIUM 8.8 mg/dL (8.5-10.1); CARBON DIOXIDE 30.3 mmol/L (21.0-32.0); CHLORIDE - SERUM 104 mmol/L (98-107); CREATININE - SERUM 0.8 mg/dL (0.6-1.3); POTASSIUM - SERUM 4.8 mmol/L (3.5-5.1); PROTEIN - SERUM 6.1 g/dL (6.4-8.2); SODIUM 137 mmol/L (136-145); UREA NITROGEN 8 mg/dL (7-18); eGFR NON AFRICAN AMERICAN 79 mL/min (90-120)
[2016-09-23 21:29] LABS: GLUCOSE 92 mg/dL (74-106)
--- NOTE | 2016-09-24 00:30 | NUR ---
REPORT RECEIVED FROM ROSETTE JIANG.
--- NOTE | 2016-09-24 02:12 | NUR ---
ARRIVED TO FLOOR VIA WHEELCHAIR, ACCOMPANIED BY HOSPITAL STAFF. ORIENTED TO UNIT, CALL LIGHT IN REACH. WILL CONTINUE TO MONITOR. SEE NURSE ASSESSMENT.
[2016-09-24 04:00] VITALS: BP 111/68
--- NOTE | 2016-09-24 07:13 | NUR ---
NO CHANGES FROM PREVIOUS ASSESSMENT, CALL LIGHT IN REACH.
--- NOTE | 2016-09-24 07:55 | NUR ---
PT SITTING UP IN BED. PT REQUESTS IV TO BE RESITED AT THIS TIME. 20G PLACED IN RIGHT HAND AND SALINE LOCKED. IV DC WITH CATH TIP INTACT FROM LEFT AC. PT TOLERATED WELL AND VERY THANKFUL. PT INQUIRING ABOUT HOME MEDICATIONS SUCH NORCO 10/325MG; TORADOL; AND DALIRESP. WILL REPORT TO AMINA ALEX.
[2016-09-24 08:00] VITALS: BP 117/79
[2016-09-24] MEDS ORDERED: HYDROCODONE-APA1 TAB PO (08:10)
--- NOTE | 2016-09-24 08:49 | NUR ---
NORCO 10/325MG GIVEN PO PER PT REQUEST FOR PAIN CONTROL.
--- NOTE | 2016-09-24 08:56 | NUR ---
PT SITTING UP IN BED. PHYSICAL ASSESSMENT DONE, SEE SHIFT ASSESSMENT. O2 AT 2L/MIN VIA NC INFUSING. PT REPORTS "BREATHING EASIER" SINCE AM BREATHING TREATMENT. EXPIRATORY WHEEZES CONTINUE TO BE HEARD THROUGHOUT ALL ADAN. S1 AND S2 AUDIBLE AND REGULAR. PT INQUIRES ABOUT HOME MEDS AGAIN, SPECIFICALLY NORCO AND XANAX. WILL REPORT TO AMINA DAHL APN. PT REPORTS PAIN 7/10 IN UPPER BACK AND HEAD. PT REPORTS PAIN CHRONIC IN BACK BUT STATES THAT IT IS WORSE THAN USUAL AND HURTS MORE WHEN SHE BREATHES IN. PT EATING BREAKFAST TRAY AND DENIES FURTEHR NEEDS AT THIS TIME.
--- NOTE | 2016-09-24 10:30 | NUR ---
PT IN LEFT LATERAL POSITION RESTING WITH EYES CLOSED. AROUSES UPON ENTERING ROOM AND RATES PAIN 5/10. PT DENIES FURTHER NEEDS AT THIS TIME.
[2016-09-24] MEDS ORDERED: DALIRESP500 MCG PO (11:02)
[2016-09-24 12:00] VITALS: BP 124/70
--- NOTE | 2016-09-24 12:00 | NUR ---
PT SITTING UP IN BED. RATES PAIN 5/10 AND DENIES NEEDS AT THIS TIME. CONTINUES TO REPORT NEED FOR HOME MEDS TO BE STARTED.
[2016-09-24 12:29] VITALS: Ht 157.5 cm; Wt 84.3 kg
--- NOTE | 2016-09-24 14:21 | NUR ---
RATIONALE FOR SCD'S EXPLAINED. REFUSED SCD'S
[2016-09-24 16:00] VITALS: BP 122/72
--- NOTE | 2016-09-24 16:00 | NUR ---
PT SITTING UP IN BED TALKING WITH ELIZA DONN. WILL WAIT TO PASS MEDS UNTIL DISCUSSION IS COMPLETE.
--- NOTE | 2016-09-24 16:18 | NUR ---
HOME MED ORDERS ENTERED AND GIVEN AT THIS TIME. PT REQUESTS THAT LASIX BE CHANGED TO 1600 INSTEAD OF 1800. PT ALSO REQUESTS NORCO, XANAX, AND ZANAFLEX SOON POSSIBLE FOR CHRONIC BACK PAIN AND ANXIETY.
--- NOTE | 2016-09-24 17:30 | NUR ---
PT AMBULATING IN ROOM AND DENIES NEEDS AT THIS TIME.
[2016-09-24 19:00] VITALS: BP 115/70
--- NOTE | 2016-09-24 21:20 | NUR ---
SITTING UP IN BED. ADMIN SCHED MEDS. HAS 02 AT 2L/NC. RR 18 EVEN U/L. IV IN RT HAND INTACT. FLUSHED WITH 10CC NS AND STARTED LEVAQUIN IV. DENIES ANY OTHER NEEDS.
[2016-09-25] VITALS: BP 126/68
[2016-09-25 04:00] VITALS: BP 122/66
--- NOTE | 2016-09-25 04:10 | NUR ---
RECEIVING UPDRAFT TX. REQUESTED MORE ICE WATER. NO OTHER NEEDS VOICED.
[2016-09-25 06:38] LABS: BASOPHILS 0 % (0-2); EOSINOPHILS 0 % (0-7); HEMOGLOBIN 13.5 g/dL (12-16); IMMATURE GRANULOCYTES 0.2 % (0-5); LYMPHOCYTES 10.1 % (15-50); MCH 30.8 pg (26.0-34.0); MCHC 31.4 g/dL (31.0-37.0); MCV 97.9 fL (80.0-100.0); MEAN PLATELET VOLUME 9.6 fL (7.4-10.4); MONOCYTES 7.5 % (2-11); NEUTROPHILS 82.2 % (40-80); PLATELET COUNT 188 10x3/uL (130-400); RBC 4.39 10x6/uL (4.00-5.40); RDW 13.8 % (11.5-14.5)
[2016-09-25 06:39] LABS: WBC 8.1 10x3/uL (4.8-10.8)
[2016-09-25 06:54] LABS: ALBUMIN 3.1 g/dL (3.4-5.0); ANION GAP 11.6 mmol/L (8-16); BILIRUBIN - TOTAL 0.39 mg/dL (0.2-1.3); CALCIUM 8.6 mg/dL (8.5-10.1); CARBON DIOXIDE 29.4 mmol/L (21.0-32.0); CREATININE - SERUM 0.9 mg/dL (0.6-1.3); PROTEIN - SERUM 6.6 g/dL (6.4-8.2)
--- NOTE | 2016-09-25 07:15 | NUR ---
AM ROUNDS - PT RESTING QUIETLY, URINE SAMPLE COLLECTED. BREATHING UNLABORED AND EQUAL. NC ON PT AT 4L WITH HUMIDIFICATION. FALL SOCKS OFFERED, BED IN LOWEST POSTION, DENIES OTHER NEEDS AT THIS TIME.
[2016-09-25 07:58] LABS: APPEARANCE CLEAR (CLEAR); BILIRUBIN NEGATIVE (NEGATIVE); COLOR STRAW (YELLOW); GLUCOSE NEGATIVE (NEGATIVE); KETONE NEGATIVE (NEGATIVE); LEUKOCYTE ESTERASE NEGATIVE (NEGATIVE); NITRITE NEGATIVE (NEGATIVE); PROTEIN NEGATIVE (NEGATIVE); UROBILINOGEN NORMAL (NORMAL)
[2016-09-25 08:00] VITALS: BP 151/93
--- NOTE | 2016-09-25 09:25 | NUR ---
PT DENIED WANTING HER CORGARD AT THIS TIME AND STATES SHE TAKES IT AT NOON WHEN AT HOME, SO I WILL GIVE HER IT PER HOME SCHEDULE LATER ON R/T IT NOT CAUSING ANY PROBLEMS THAT WAY.
--- NOTE | 2016-09-25 09:43 | NUR ---
PT IS RESTING IN BED AND DENIES ANY CURRENT PAIN OR NEEDS. PTS HEAD NURSE IS DEIDRE STALLWORTH WHOM I AM THE PRECEPTOR OF, PT VERBALIZED THAT SHE HAS DONE EVERYTHING JUST FINE AND DENIES ANY COMPLAINTS OR NEEDS. WILL CTM OVER HER PATIENTS AND ASSIST IF NEEDED.
[2016-09-25 12:00] VITALS: BP 106/60
--- NOTE | 2016-09-25 12:25 | NUR ---
PT RESTING QUIELTY, DENIES NEEDS AT THIS TIME. PT CURRENTLY ON ROOM AIR, BUT ENCOURAGED TO PUT ON NC WHEN SHE BEGINS FEELING SOB OR HAS ANY DIFFICULTY BREATHING. WILL CTM.
[2016-09-25] MEDS ORDERED: CORGARD40 MG (14:09)
[2016-09-25 16:00] VITALS: BP 121/73
--- NOTE | 2016-09-25 18:25 | NUR ---
PT ASLEEP, BREATHING UNLABORED AND EQUAL. O2 ON PT AT 2L VIA NC. BED IN LOWEST POSTION, CALL LIGHT IN REACH, WILL REPORT ON PT CONDITION FOR THE DAY.
[2016-09-25 19:00] VITALS: BP 129/69
--- NOTE | 2016-09-25 19:20 | NUR ---
ALERT/AWAKE DENIES ANY NEEDS. 02 AT 2L/NC. RR 18 EVEN U/L. IV IN R HAND INTACT SL. DOES NOT WANT THE SCD'S ON. BED IS LOW WITH SR UP X2. ORIENTED TO CALL LIGHT FOR ANY NEEDS.
--- NOTE | 2016-09-25 21:55 | NUR ---
ADMIN SCHED MEDS AND TORADOL 15 MG IV PER REQUEST FOR C/O PAIN LEVEL 6 ON NUMBER SCALE. NO OTHER NEEDS VOICED.
--- NOTE | 2016-09-25 23:45 | NUR ---
IV INFILTRATED. REMOVED AND RESITED IN LEFT HAND 22G.
[2016-09-26] VITALS (7 sets, daily range): BP systolic 113–146; BP diastolic 59–81
--- NOTE | 2016-09-26 04:00 | NUR ---
REC RESP. UPDRAFT TX. DENIES ANY NEEDS AT THIS TIME.
[2016-09-26 05:29] LABS: BASOPHILS 0 % (0-2); EOSINOPHILS 0 % (0-7); HEMATOCRIT 40.7 % (36.0-48.0); HEMOGLOBIN 12.7 g/dL (12-16); IMMATURE GRANULOCYTES 0.4 % (0-5); LYMPHOCYTES 8.6 % (15-50); MCH 30.6 pg (26.0-34.0); MCHC 31.2 g/dL (31.0-37.0); MCV 98.1 fL (80.0-100.0); MEAN PLATELET VOLUME 9.8 fL (7.4-10.4); MONOCYTES 7.6 % (2-11); NEUTROPHILS 83.4 % (40-80); PLATELET COUNT 160 10x3/uL (130-400); RBC 4.15 10x6/uL (4.00-5.40); RDW 13.9 % (11.5-14.5)
[2016-09-26 05:53] LABS: ALBUMIN 2.6 g/dL (3.4-5.0); ANION GAP 7.1 mmol/L (8-16); BILIRUBIN - TOTAL 0.3 mg/dL (0.2-1.3); CALCIUM 8.2 mg/dL (8.5-10.1); CARBON DIOXIDE 30.3 mmol/L (21.0-32.0); POTASSIUM - SERUM 4.4 mmol/L (3.5-5.1); PROTEIN - SERUM 5.7 g/dL (6.4-8.2)
--- NOTE | 2016-09-26 07:43 | NUR ---
PT RESTING QUIETLY, BREATHING UNLABORED AND EQUAL, PT RECIEVING BREATHING TX. DENIES NEEDS AT THIS TIME. BED IN LOWEST POSTION, CALL LIGHT IN REACH, FALL SOCKS OFFERED, WILL CTM.
--- NOTE | 2016-09-26 16:12 | NUR ---
PT RESTING QUIETLY, REPORTS PAIN AT 7/10. PAIN MEDS GIVEN, WILL CTM.
--- NOTE | 2016-09-26 19:00 | NUR ---
INITIAL ROUNDS MADE. PT SITTING UP IN BED WATCHING TV. NO NEEDS OR C/O AT THIS TIME. RT IN ROOM FOR SCHEDULED UPD. WILL CONT TO MONITOR.
--- NOTE | 2016-09-26 21:24 | NUR ---
HS MEDS GIVEN WITHOUT DIFFICULTY. WILL CONT TO MONITOR.
[2016-09-27 04:00] VITALS: BP 164/99
[2016-09-27 05:14] LABS: BASOPHILS 0 % (0-2); EOSINOPHILS 0 % (0-7); HEMATOCRIT 42.5 % (36.0-48.0); HEMOGLOBIN 13.4 g/dL (12-16); IMMATURE GRANULOCYTES 0.7 % (0-5); MCH 31.1 pg (26.0-34.0); MCHC 31.5 g/dL (31.0-37.0); MCV 98.6 fL (80.0-100.0); MEAN PLATELET VOLUME 9.7 fL (7.4-10.4); MONOCYTES 3.7 % (2-11); NEUTROPHILS 86.6 % (40-80); PLATELET COUNT 173 10x3/uL (130-400); RBC 4.31 10x6/uL (4.00-5.40); RDW 13.6 % (11.5-14.5); WBC 4.3 10x3/uL (4.8-10.8)
[2016-09-27 05:31] LABS: ALBUMIN 2.9 g/dL (3.4-5.0); ANION GAP 7.6 mmol/L (8-16); BILIRUBIN - TOTAL 0.5 mg/dL (0.2-1.3); CALCIUM 8.1 mg/dL (8.5-10.1); CARBON DIOXIDE 31.1 mmol/L (21.0-32.0); CREATININE - SERUM 0.9 mg/dL (0.6-1.3); POTASSIUM - SERUM 4.7 mmol/L (3.5-5.1); PROTEIN - SERUM 5.6 g/dL (6.4-8.2)
--- NOTE | 2016-09-27 07:53 | NUR ---
AM ROUNDING DONE WITH PATIENT APPEARING TO BE ALSEEP, LAYING ON LEFT SIDE. RESP ARE EVEN AND NON LAOBROED. ON 2L PER NC. ON EP, LAB VALUES ARE WNL. SALINE LOCK SEEN TO LEFT WRIST AREA.
[2016-09-27 08:21] VITALS: BP 144/80
--- NOTE | 2016-09-27 09:45 | NUR ---
REQUESTING PAIN MEDICATION TO BACK 10/11. JAIME GIVEN
[2016-09-27 12:18] VITALS: BP 129/76
[2016-09-27 16:59] VITALS: BP 141/80
[2016-09-27 21:16] VITALS: BP 151/81
--- NOTE | 2016-09-27 22:21 | NUR ---
HS MEDS GIVEN WITH FRESH ICE WATER, UNABLE TO GIVE IV MEDS AT THIS TIME, PT IV TO LEFT WRIST UNABLE TO FLUSH AND C/O PAIN TO IV SITE. IV CATH REMOVED TIP INTACT, WILL ATTEMPT TO RESITE IV SHORTLY.
--- NOTE | 2016-09-27 23:01 | NUR ---
ALEJANDRA JIANG AT BED SIDE, 22 GUAGE PLACED TO LEFT AC, TRIED TO RUN IV LEVAQUIN, UNALBE TO INFUSE. TRIED TO FLUSH IV, IV UNALBE TO FLUSH.
[2016-09-27 23:55] VITALS: BP 167/89
--- NOTE | 2016-09-28 00:13 | NUR ---
ATTEMPTED TO SITE NEW IV TO RIGHT FOREARM, INSERTED 22 GAUGE IV INTO ARM, FLASH NOTED, VEIN BLEW WHEN ATTEMPTED TO FLUSH. WILL SEE IF ANOTHER NURSE WILL ATTEMPT.
--- NOTE | 2016-09-28 00:31 | NUR ---
HYUN JIANG FROM ICU AT BED SIDE, UNABLE TO ESTABLISH WORKING IV.
--- NOTE | 2016-09-28 00:41 | NUR ---
RETAIL SALES MANAGER AT BEDSIDE FOR VS. NEEDS ADDRESSED AT THIS TIME. CALL LIGHT IN REACH. WILL CONT TO MONITOR.
--- NOTE | 2016-09-28 00:56 | NUR ---
CHANDU JIANG FROM ICU AT BED SIDE, UNABLE TO ESTABLISH IV ACCESS.
--- NOTE | 2016-09-28 01:12 | NUR ---
SAGAR JEFFREY RN FORM ICU AT BED SIDE, IV SITED TO LEFT AC, 22 GUAGE SECOND ATTEMPT.
--- NOTE | 2016-09-28 01:26 | NUR ---
CONNECTED ABX TO LEFT AC IV, PT C/O BURNING. FLUSHED IV AND ARM PUFFY ABOVE INSERTION SITE. CATH REMOVED TIP INTACT.
--- NOTE | 2016-09-28 02:52 | NUR ---
OSIEL JIANGASH PIT WORKER AT BED SIDE, ATTEMPTED TO RESITE IV, UNALBE TO OBTAIN USABLE IV ACCESS.
[2016-09-28 03:56] VITALS: BP 171/89
[2016-09-28 07:18] LABS: ALBUMIN 2.9 g/dL (3.4-5.0); ANION GAP 7.8 mmol/L (8-16); BILIRUBIN - TOTAL 0.6 mg/dL (0.2-1.3); CALCIUM 8.4 mg/dL (8.5-10.1); CARBON DIOXIDE 33.7 mmol/L (21.0-32.0); POTASSIUM - SERUM 4.5 mmol/L (3.5-5.1); PROTEIN - SERUM 5.7 g/dL (6.4-8.2)
[2016-09-28 07:52] LABS: BASOPHILS 0 % (0-2); EOSINOPHILS 0 % (0-7); HEMATOCRIT 43.4 % (36.0-48.0); HEMOGLOBIN 13.9 g/dL (12-16); IMMATURE GRANULOCYTES 0.8 % (0-5); LYMPHOCYTES 7.8 % (15-50); MCV 96.9 fL (80.0-100.0); MEAN PLATELET VOLUME 9.8 fL (7.4-10.4); MONOCYTES 5.3 % (2-11); NEUTROPHILS 86.1 % (40-80); PLATELET COUNT 180 10x3/uL (130-400); RBC 4.48 10x6/uL (4.00-5.40); RDW 13.5 % (11.5-14.5); WBC 4.9 10x3/uL (4.8-10.8)
[2016-09-28 08:00] VITALS: BP 136/66
--- NOTE | 2016-09-28 09:00 | NUR ---
ADMINISTERED MORNING MEDICATIONS, PT STATED THAT SHE WOULD TAKE THE CONGARD AROUND NOON TO LEAVE IT AT BEDSIDE. PT DENIES ANY NEEDS AT THIS TIME. CALL LIGHT IN REACH, NAD NOTED, WILL CONTINUE TO MONITOR.
[2016-09-28 11:56] VITALS: BP 163/80
--- NOTE | 2016-09-28 12:36 | NUR ---
ADMINISTERED NORCO 10MG FOR PAIN LEVEL OF 8/10, ALSO GAVE ZANAFLEX PER PT REQUEST. PT DENIES ANY OTHER NEEDS AT THIS TIME. CALL LIGHT IN REACH, NAD NOTED, WILL CONTINUE TO MONITOR.
[2016-09-28 17:48] VITALS: BP 159/86
--- NOTE | 2016-09-28 18:01 | NUR ---
Patient Name: LANE ONEAL Admission Status: ER Accout number: [id number] Admission Date: 09-23-2016 : 1960 Admission Diagnosis:CHRONIC OBSTRUCTIVE PULMON DISEASE W ACUTE LOWER RESP I Attending: BOB Current LOS: 5 Anticipated DC Date: Planned Disposition: Home Primary Insurance: MEDICARE A & B Discharge Planning Comments: CM MET WITH PATIENT TO DISCUSS DISCHARGE PLANNING/NEEDS. PATIENT STATED THAT EVEN THOUGH HER IS LISTED HER EMERGENCY CONTACT, THAT THEY ARE LEGALLY SEPERATED AND SHE LIVES WITH HER 73 YEAR OLD MOM. SHE STATED THAT SHE IS INDEPENDENT WITH HER ADL'S BUT THAT SHE WAS RECEIVING HOME HEALTH 1-2 TIMES A WEEK WITH [facility]. SAID THEY REVIEW HER MEDICATIONS AND CHECK HER BREATHING. SHE STATED THAT SHE HAS BEEN IN THE HOSPITAL 3 TIMES IN THE LAST 2 MONTHS WITH HER PNEUMONIA AND IT JUST WON'T GET BETTER. SHE SAID THAT SHE WEARS OXYGEN AT 2.5-3L N/C AT BEDTIME AT HOME. WHEN ASKED THE READMISSION QUESTIONS, SHE STATED THAT SHE DID GET HER DISCHARGE MEDS, BUT IT WASN'T RIGHT AWAY BECAUSE SHE WAS HAVING A HARD TIME FINDING SOMEONE TO BORROW THE MONEY FROM TO GET THEM FILLED. SHE ALSO STATED THAT IT MAY BE A PROBLEM THIS TIME TO IF SHE WERE GOING TO BE DISCHARGED HOME WITH NEW MEDICATIONS. I ASKED HER IF HER INSURANCE DIDN'T PAY, SHE STATED THAT THEY PAY SOME, BUT HER PART WAS STILL A LOT. EXPLAINED THAT SINCE SHE HAS INSURANCE, THERE MAY NOT BE MUCH WE CAN DO, BUT I WOULD CHECK INTO IT. EVEN IF WE JUST TRY TO USE THE [email or web address] $4 LIST. SHE THEN REPEATED THAT SHE COULDN'T REALLY AFFORD THAT. EXPLAINED THAT WE WOULD HAVE TO LOOK AT THAT CLOSER TO DISCHARGE AND SHE AGREED. HER PLAN IS TO RETURN HOME WITH HER MOM AND [facility]UME [facility]. SHE DENIES ADDITIONAL NEEDS (OTHER THAN THE ABOVE MENTIONED). CM WILL CONTINUE TO FOLLOW AND ASSIST NEEDED. Electronic Equipment Repairmen: Suzan Rodriguez Is the patient Alert and Oriented? Yes * How many steps to enter\exit or inside your home? 0 * PCP DR CHOWDARY * [facility] ON [address] (SHORT TERM) * Preadmission Environment Home with Family * ADLs Independent * Equipment Nebulizer Oxygen Wheelchair * List name and contact numbers for known caregivers / representatives who currently or will assist patient after discharge: SHIRA ONEAL, SPOUSE (SEPERATED), * Community resources currently utilized Home Health * Please name any agencies selected above. [facility] * Additional services required to return to the preadmission environment? No * Can the patient safely return to the preadmission environment? Yes * Has this patient been hospitalized within the prior 30 days at any hospital? Yes
[2016-09-28 19:00] VITALS: BP 147/83
--- NOTE | 2016-09-28 19:30 | NUR ---
PT IS RESTING IN BED WITH EYES OPEN. ALERT AND ORIENTED X 3. DENIES ANY PAIN OR DISCOMFORT AT THIS TIME. NO SOB NOTED. O2 IS ON @ 2LPM PER NC. SALINE LOCK NOTED TO LEFT HAND. NO REDNESS OR EDEMA NOTED AT THE INSERTION SITE. SR'S ARE UP X 2 IN BED. CALL LIGHT AND BEDSIDE TABLE ARE WITHIN EASY REACH.
--- NOTE | 2016-09-28 21:57 | NUR ---
PT IS RESTING IN BED WATCHING TV. OCCASIONAL COUGH NOTED. NO SPUTUM NOTED.
[2016-09-29] VITALS: BP 138/109
--- NOTE | 2016-09-29 01:46 | NUR ---
RESTING QUIETLY IN BED WITH EYES CLOSED. RESPS ARE EVEN AND UNLABORED. NO ACUTE DISTRESS NOTED.
[2016-09-29 04:00] VITALS: BP 135/84
[2016-09-29 06:24] LABS: BASOPHILS 0 % (0-2); EOSINOPHILS 0 % (0-7); HEMATOCRIT 46.3 % (36.0-48.0); HEMOGLOBIN 14.8 g/dL (12-16); IMMATURE GRANULOCYTES 1.3 % (0-5); LYMPHOCYTES 8.2 % (15-50); MCH 30.8 pg (26.0-34.0); MCV 96.5 fL (80.0-100.0); MEAN PLATELET VOLUME 9.7 fL (7.4-10.4); NEUTROPHILS 84.5 % (40-80); PLATELET COUNT 204 10x3/uL (130-400); RDW 13.3 % (11.5-14.5); WBC 4.5 10x3/uL (4.8-10.8)
--- NOTE | 2016-09-29 06:29 | NUR ---
PT RESTING IN BED WITH EYES CLOSED. AWOKE EASILY TO VERBAL STIMULI. NO COMPLAINT VOICED. TOLERATED AM MEDS WITHOUT DIFFICULTY.
[2016-09-29 06:43] LABS: ALKALINE PHOSPHATASE 60 U/L (46-116); ALT (SGPT) 21 U/L (10-68); CARBON DIOXIDE 35.5 mmol/L (21.0-32.0); CHLORIDE - SERUM 97 mmol/L (98-107); CREATININE - SERUM 0.8 mg/dL (0.6-1.3); POTASSIUM - SERUM 4.4 mmol/L (3.5-5.1); PROTEIN - SERUM 6.1 g/dL (6.4-8.2); SODIUM 137 mmol/L (136-145); UREA NITROGEN 20 mg/dL (7-18); eGFR NON AFRICAN AMERICAN 79 mL/min (90-120)
[2016-09-29 06:47] LABS: CALC OSMOLALITY 282 mosm/kg (275-300); CALCIUM 8.8 mg/dL (8.5-10.1); GLUCOSE 215 mg/dL (74-106)
--- NOTE | 2016-09-29 07:17 | NUR ---
AM ROUNDS- PT IN BED, DENIES ANY NEEDS AT THIS TIME. CALL LIGHT IN REACH, BED LOW AND LOCKED, BEDSIDE RAILS X2, NAD NOTED, WILL CONTINUE TO MONITOR.
[2016-09-29 08:00] VITALS: BP 141/71
--- NOTE | 2016-09-29 08:48 | NUR ---
AM MEDS GIVEN AT THIS TIME, PT REFUSED NICOTINE PATCH. PT IN BED, DENIES ANY NEEDS AT THIS TIME. CALL LIGHT IN REACH, NAD NOTED, WILL CONTINUE TO MONITOR.
--- NOTE | 2016-09-29 10:10 | NUR ---
Patient Name: LANE ONEAL Encounter No: [id number] : 1960 Primary Insurance: MEDICARE A & B Anticipated DC Date: Planned Disposition: Home WITH HOME HEALTH External Planned Provider: [facility] DCP follow-up note: CM CALLED [facility], , SPOKE TO ZAC AND VERIFIED PT IS ACTIVE AND ON HOLD FOR HOME HEALTH SERVICES. AT DISCHARGE, CALL [facility] AT [phone] TO RESUME HOME HEALTH SERVICES, FAX DISCHARGE INFORMATION TO [facility] AT [phone]. CM TO FOLLOW AND ASSIST NEEDED. Bernardino Hicks, CASE MANAGEMENT
--- NOTE | 2016-09-29 11:27 | NUR ---
ADMINISTERED NORCO 10MG FOR PAIN LEVEL OF 8/10. ALSO GAVE ZANAFLEX AND 2MG OF XANAX PER PT REQUEST. PT DENIES ANY OTHER NEEDS AT THIS TIME. CALL LIGHT IN REACH, NAD NOTED, WILL CONTINUE TO MONITOR.
[2016-09-29 12:00] VITALS: BP 140/75
--- NOTE | 2016-09-29 13:33 | NUR ---
Nutrition follow-up: Diet: Regular PO intake 25-50% of meals Labs reviewed Glucose > 250 mg/dl +BM RDN will change diet order to ADA consistent CHO due to elevated glucose. RDN following.
[2016-09-29 15:39] VITALS: BP 121/73
--- NOTE | 2016-09-29 15:58 | NUR ---
SITTING UP IN BED RESTING QUIETLY. DENIES ANY NEEDS AT THIS TIME. PAIN 4/10 IN RIB CAGE AND LOWER BACK. CALL LIGHT IN REACH.
--- NOTE | 2016-09-29 16:28 | NUR ---
ADMINISTERED 15MG TORDOL FOR BREAK-THRU PAIN 5/10 LOWER BACK AND GENEVIEVE RIB CAGE PER PT REQUEST, NAD NOTED. CALL LIGHT IN REACH. DENIES ANY OTHER NEEDS AT THIS TIME. WILL CONTINUE TO MONITOR.
[2016-09-29 19:00] VITALS: BP 165/89
--- NOTE | 2016-09-29 19:30 | NUR ---
PT IN BED WITH HOB UP FOR COMFORT. TALKING ON CELLPHONE. ALERT & ORIENTED. 02 @ 2L VIA N/C. LT HAND SALINE LOC. UP ADLIB. PT HAS NO COMPLAINTS AT THIS TIME. BED IN LOWEST POSITION AND CALL LIGHT WITHIN REACH.
--- NOTE | 2016-09-29 20:27 | NUR ---
DIRECTOR AND PROFESSOR AT BEDSIDE TO OBTAIN VITALS, CALL LIGHT IN REACH. WILL CONTINUE WITH PLAN OF CARE.
[2016-09-30] VITALS: BP 158/96
--- NOTE | 2016-09-30 03:17 | NUR ---
PT IN BED WITH HOB UP FOR COMFORT. RESTING QUIETLY. BED IN LOWEST POSITION AND CALL LIGHT WITHIN REACH.
[2016-09-30 04:00] VITALS: BP 133/83
[2016-09-30 05:52] LABS: BASOPHILS 0 % (0-2); EOSINOPHILS 0 % (0-7); HEMATOCRIT 45.9 % (36.0-48.0); HEMOGLOBIN 14.9 g/dL (12-16); IMMATURE GRANULOCYTES 1.6 % (0-5); MCHC 32.5 g/dL (31.0-37.0); MCV 95.6 fL (80.0-100.0); MEAN PLATELET VOLUME 9.3 fL (7.4-10.4); MONOCYTES 4.9 % (2-11); NEUTROPHILS 86.5 % (40-80); PLATELET COUNT 214 10x3/uL (130-400); RDW 13.4 % (11.5-14.5)
[2016-09-30 05:59] LABS: WBC 6.9 10x3/uL (4.8-10.8)
[2016-09-30 06:13] LABS: ALBUMIN 3.1 g/dL (3.4-5.0); ANION GAP 8.9 mmol/L (8-16); BILIRUBIN - TOTAL 0.79 mg/dL (0.2-1.3); CALCIUM 9.2 mg/dL (8.5-10.1); CARBON DIOXIDE 35.1 mmol/L (21.0-32.0); CREATININE - SERUM 0.9 mg/dL (0.6-1.3); PROTEIN - SERUM 6.4 g/dL (6.4-8.2)
--- NOTE | 2016-09-30 08:02 | NUR ---
AWAKE WITHOUT DISTRESS. NO SOB.
[2016-09-30 08:27] VITALS: BP 167/86
[2016-09-30 11:55] VITALS: BP 133/73
[2016-09-30 15:11] VITALS: BP 171/90
--- NOTE | 2016-09-30 17:48 | NUR ---
PATIENT HAS BEEN RESTING QUIETLY WITHOUT DISTRESS. AMBULATING IN HALLWAYS
--- NOTE | 2016-09-30 18:01 | NUR ---
NO DISTRESS. RESTING QUIETLY
[2016-09-30 19:00] VITALS: BP 138/82
[2016-10-01] VITALS: BP 113/67
[2016-10-01 04:00] VITALS: BP 119/68
[2016-10-01 05:17] LABS: BASOPHILS 0.2 % (0-2); EOSINOPHILS 0 % (0-7); HEMATOCRIT 45.5 % (36.0-48.0); HEMOGLOBIN 14.9 g/dL (12-16); LYMPHOCYTES 7.8 % (15-50); MCHC 32.7 g/dL (31.0-37.0); MCV 94.8 fL (80.0-100.0); MEAN PLATELET VOLUME 9.4 fL (7.4-10.4); MONOCYTES 6.8 % (2-11); NEUTROPHILS 83.2 % (40-80); PLATELET COUNT 218 10x3/uL (130-400); RDW 13.4 % (11.5-14.5)
[2016-10-01 05:24] LABS: WBC 5.1 10x3/uL (4.8-10.8)
[2016-10-01 05:34] LABS: ALBUMIN 2.9 g/dL (3.4-5.0); ANION GAP 7.6 mmol/L (8-16); BILIRUBIN - TOTAL 0.83 mg/dL (0.2-1.3); POTASSIUM - SERUM 4.6 mmol/L (3.5-5.1)
--- NOTE | 2016-10-01 07:45 | NUR ---
PT RESTING TI, ON 2L NC. RR EVEN AND UNLABORED. INTRODUCED SELF FOR PRIMARY RN FOR THE DAY. DENIES OTHER NEEDS AT THIS TIME. BED IN LOWEST POSTION, CALL LIGHT IN REACH, FALL SOCKS OFFERED, WILL CTM.
[2016-10-01 08:44] VITALS: BP 131/89
[2016-10-01 12:00] VITALS: BP 117/79
[2016-10-01 18:24] VITALS: BP 124/72
[2016-10-01 19:00] VITALS: BP 123/74
--- NOTE | 2016-10-01 19:20 | NUR ---
RECEIVED REPORT, ASSUMED CARE OF PT, PT SITTING UP IN BED, DENIES ANY NEEDS, BED IS LOW, SRX2,CALL LIGHT IN REACH, WILL CONTINUE PLAN OF CARE
[2016-10-02 04:00] VITALS: BP 120/66
[2016-10-02 05:29] LABS: BASOPHILS 0 % (0-2); EOSINOPHILS 0 % (0-7); HEMATOCRIT 45.8 % (36.0-48.0); HEMOGLOBIN 14.8 g/dL (12-16); IMMATURE GRANULOCYTES 1.5 % (0-5); LYMPHOCYTES 6.9 % (15-50); MCHC 32.3 g/dL (31.0-37.0); MEAN PLATELET VOLUME 9.3 fL (7.4-10.4); MONOCYTES 6.6 % (2-11); PLATELET COUNT 207 10x3/uL (130-400); RBC 4.77 10x6/uL (4.00-5.40); RDW 13.4 % (11.5-14.5); WBC 5.3 10x3/uL (4.8-10.8)
[2016-10-02 05:42] LABS: ALBUMIN 3.1 g/dL (3.4-5.0); ANION GAP 5.4 mmol/L (8-16); BILIRUBIN - TOTAL 0.9 mg/dL (0.2-1.3); CALCIUM 8.5 mg/dL (8.5-10.1); CARBON DIOXIDE 38.5 mmol/L (21.0-32.0); POTASSIUM - SERUM 4.9 mmol/L (3.5-5.1); PROTEIN - SERUM 6.1 g/dL (6.4-8.2)
--- NOTE | 2016-10-02 07:00 | NUR ---
RECEIVED REPORT. ASSUMED CARE OF PATIENT. CALL LIGHT WITHIN REACH. SITTING UP IN BED, RESP EVEN AND UNLABORED. COUGH, NONPRODUCTIVE. DENIES NEEDS AT THIS TIME. NO DISTRESS.
[2016-10-02 08:00] VITALS: BP 135/79
--- NOTE | 2016-10-02 11:15 | NUR ---
FSBS 167. 4 UNITS HUMALOG ADMINISTERED PER SLIDING SCALE AT THIS TIME. NO DISTRESS.
[2016-10-02 12:00] VITALS: BP 125/65
--- NOTE | 2016-10-02 15:13 | NUR ---
MEDICATED FOR PAIN AT THIS TIME. NO DISTRESS.
[2016-10-02 16:00] VITALS: BP 163/86
--- NOTE | 2016-10-02 16:59 | NUR ---
FSBS 199. 4 UNITS HUMALOG ADMINISTERED PER SLIDING SCALE. MEDICATED WITH ZANAFLEX AT THIS TIME ALSO FOR MUSCLE SPASMS. NO DISTRESS.
--- NOTE | 2016-10-02 19:15 | NUR ---
RECEIVED REPORT, WILL ASSUMED CARE OF PT, PT IS ALERT & ORIENTATED, BED IS LOW, SRX2, CALL LIGHT IN REACH, WILL CONTINUE PLAN OF CARE
[2016-10-02 20:00] VITALS: BP 119/66
--- NOTE | 2016-10-03 00:11 | NUR ---
ASSESSMENT COMPLETE, PT IS SITTING UP IN BED, ASK FOR PAIN MEDS, WILL GIVE, BED IS LOW, SRX2, CALL LIGHT IN REACH, WILL CONTIUNE PLAN OF CARE
[2016-10-03 04:00] VITALS: BP 155/85
[2016-10-03 05:53] LABS: BASOPHILS 0.2 % (0-2); EOSINOPHILS 0 % (0-7); HEMATOCRIT 45.4 % (36.0-48.0); HEMOGLOBIN 14.9 g/dL (12-16); IMMATURE GRANULOCYTES 1.1 % (0-5); LYMPHOCYTES 8.9 % (15-50); MCH 31.4 pg (26.0-34.0); MCHC 32.8 g/dL (31.0-37.0); MCV 95.6 fL (80.0-100.0); MEAN PLATELET VOLUME 9.1 fL (7.4-10.4); MONOCYTES 9.7 % (2-11); NEUTROPHILS 80.1 % (40-80); PLATELET COUNT 216 10x3/uL (130-400); RBC 4.75 10x6/uL (4.00-5.40); RDW 13.3 % (11.5-14.5); WBC 6.4 10x3/uL (4.8-10.8)
[2016-10-03 06:23] LABS: ALBUMIN 3.1 g/dL (3.4-5.0); ANION GAP 7.1 mmol/L (8-16); BILIRUBIN - TOTAL 0.92 mg/dL (0.2-1.3); CALCIUM 8.9 mg/dL (8.5-10.1); CARBON DIOXIDE 36.2 mmol/L (21.0-32.0); CREATININE - SERUM 0.9 mg/dL (0.6-1.3); POTASSIUM - SERUM 4.3 mmol/L (3.5-5.1); PROTEIN - SERUM 6.1 g/dL (6.4-8.2)
--- NOTE | 2016-10-03 07:00 | NUR ---
RECEIVED REPORT. ASSUMED CARE OF PATIENT. CALL LIGHT WITHIN REACH. PATIENT UP AMBULATING WITHIN ROOM. DENIES NEEDS AT THIS TIME. NO DISTRESS.
[2016-10-03 08:00] VITALS: BP 143/86
--- NOTE | 2016-10-03 08:49 | CN ---
PATIENT NAME:LANE ONEAL MEDICAL RECORD: [id number] : [birth year] LOCATION:. D.2130 ADMIT DATE: 09/23/16 ACCOUNT: [id number] CONSULTING PHYSICIAN: OLIVIA VALENTINE MD REFERRING PHYSICIAN: GARY SHEEHAN MD CONSULTATION: HISTORY OF PRESENT ILLNESS: The patient is a 56-year-old lady with a history of reactive airway disease with a fixed obstructive component. She has been on nadolol and various other beta blockers for tachyarrhythmias. She is felt to have possible cross reactivity with the beta celestino with some exacerbation of reactive component airway disease. We were asked to see her for possibility of switching to a different agent. PAST MEDICAL HISTORY: 1. History of obstructive pulmonary disease. 2. Reactive airway disease. 3. Gastroesophageal reflux disease. ALLERGIES: Sulfa, iodine, penicillin, and latex. SOCIAL HISTORY: She lives here in [place]. No set exercise program. She continues to smoke four to five cigarettes per day. MEDICATIONS PRIOR TO ADMISSION: 1. Bentyl 10 milligrams as needed. 2. Albuterol 2.5 milligrams every four hours as needed. 3. Brovana 15 micrograms twice a day. 4. Zanaflex 4 milligrams three times a day. 5. Corgard 40-80 milligrams as needed. 6. Paxil 20 milligrams three times a day. 7. Xanax 2 milligrams three times a day. 8. [place] 10/325 milligrams every six hours as needed. 9. Lasix 20 milligrams twice a day as needed. 10. Potassium supplementation. 11. Carafate 1 gram before meals and at bedtime. 12. Protonix 40 milligrams every day. REVIEW OF SYSTEMS: PHYSICAL EXAMINATION: GENERAL: Pleasant female in no acute distress. She appears stated age. VITAL SIGNS: Blood pressure 119/68, pulse 70. HEAD, EYES, EARS, NOSE, AND THROAT: Normocephalic, atraumatic. NECK: No bruits are noted. HEART: Irregular, rate is 70 only. No extrasystoles. LUNGS: Inspiratory and expiratory wheezes with prolonged expiratory phase. ABDOMEN: Soft, nontender. PULSES: Actually well-preserved. 2+ with no edema. NEUROLOGIC: Grossly intact. IMPRESSION AND PLAN: Left ventricular function has been normal in the past. No history of hypertension. Could certainly hold beta blockade at this point and use a pill in a pocket class I agent such as propafenone in view of her normal echocardiographic study. Further recommendations based upon the above. CONSULT REPORT [id number] LANE ONEAL GREGORY A MD at 0849 CC: [id number] DICTATION DATE: 10/01/161831 MOLD CARPENTER: TC 10/02/161831 ADM IN [place] [id number] [place] [id number]
[2016-10-03 11:35] VITALS: BP 135/83
--- NOTE | 2016-10-03 11:51 | NUR ---
FSBS 175, 4 UNITS HUMALOG ADMINISTERED PER SLIDING SCALE AT THIS TIME.
--- NOTE | 2016-10-03 11:52 | NUR ---
MEDICATED FOR PAIN
[2016-10-03 15:43] VITALS: BP 155/90
--- NOTE | 2016-10-03 16:30 | NUR ---
FSBS 159. 4 UNITS HUMALOG ADMINISTERED PER SLIDING SCALE.
--- NOTE | 2016-10-03 17:05 | NUR ---
MEDICATED FOR PAIN. NO DISTRESS.
[2016-10-03 20:00] VITALS: BP 150/85
--- NOTE | 2016-10-03 20:44 | NUR ---
PT RESTING IN BED WITH NO DISTRESS. O2 @ 2L/NC WITH NONLABORED RESPIRATIONS. SALINE LOCK TO LEFT HAND. SR PER TELEMETRY. SEE ASSESMENT AND CPOC.
--- NOTE | 2016-10-03 21:31 | NUR ---
BEDTIME MEDS ADMINISTERED. REVIEWED USING FLUTTER VALVE.
[2016-10-04 04:31] LABS: BASOPHILS 0.1 % (0-2); EOSINOPHILS 0.1 % (0-7); HEMATOCRIT 44.5 % (36.0-48.0); HEMOGLOBIN 14.6 g/dL (12-16); IMMATURE GRANULOCYTES 1.5 % (0-5); LYMPHOCYTES 12.9 % (15-50); MCH 31.3 pg (26.0-34.0); MCHC 32.8 g/dL (31.0-37.0); MCV 95.3 fL (80.0-100.0); MEAN PLATELET VOLUME 8.9 fL (7.4-10.4); MONOCYTES 9.8 % (2-11); NEUTROPHILS 75.6 % (40-80); PLATELET COUNT 201 10x3/uL (130-400); RBC 4.67 10x6/uL (4.00-5.40); RDW 13.6 % (11.5-14.5); WBC 7.3 10x3/uL (4.8-10.8)
[2016-10-04 04:51] LABS: ALBUMIN 3.1 g/dL (3.4-5.0); ALKALINE PHOSPHATASE 48 U/L (46-116); ALT (SGPT) 35 U/L (10-68); BILIRUBIN - TOTAL 0.97 mg/dL (0.2-1.3); CALC OSMOLALITY 276 mosm/kg (275-300); CALCIUM 8.9 mg/dL (8.5-10.1); CARBON DIOXIDE 37.1 mmol/L (21.0-32.0); CHLORIDE - SERUM 97 mmol/L (98-107); CREATININE - SERUM 0.8 mg/dL (0.6-1.3); GLUCOSE 101 mg/dL (74-106); POTASSIUM - SERUM 4.3 mmol/L (3.5-5.1); SODIUM 137 mmol/L (136-145); UREA NITROGEN 20 mg/dL (7-18); eGFR NON AFRICAN AMERICAN 79 mL/min (90-120)
--- NOTE | 2016-10-04 08:32 | NUR ---
ASSESSMENT DONE. DENIES NEEDS.
[2016-10-04 08:40] VITALS: BP 127/71
--- NOTE | 2016-10-04 10:43 | NUR ---
RESP UL ON . CALL LIGHT IN REACH. WILL MONITOR NEEDS.
[2016-10-04 12:39] VITALS: BP 108/69
[2016-10-04 16:51] VITALS: BP 141/77
--- NOTE | 2016-10-04 17:30 | NUR ---
WITHOUT CHANGES OR DISTRESS NOTED AT THIS TIME. DENIES NEEDS.
[2016-10-04 19:00] VITALS: BP 143/80
--- NOTE | 2016-10-04 19:40 | NUR ---
PT RESTING IN BED. 2L OF OXYGEN VIA NC. IV LEFT HAND S/L. NO S/S OF DISRESS. PT DENIES ANY NEEDS WILL CONTINUE TO MONITOR
--- NOTE | 2016-10-04 20:12 | NUR ---
PT UP TO BATHROOM FOR BM. HR 161. STATES " THATS WHAT I WAS COMPLAINING ABOUT AND WANTED THEM TO NOTICE IS THAT MY HR GOES UP WHEN I HAVE A BM AND WHEN AMBULATING. ALSO WHEN IN BED AND COUGHS HR INCREASES." PT HAS NO S/S OF DISTRESS. "JUST A LITTLE LIGHT HEADED" WILL CONTINUE TO MONITOR
[2016-10-05] VITALS: BP 133/79
[2016-10-05 04:00] VITALS: BP 106/70
[2016-10-05 05:41] LABS: BASOPHILS 0.1 % (0-2); EOSINOPHILS 0 % (0-7); HEMATOCRIT 45.4 % (36.0-48.0); HEMOGLOBIN 14.6 g/dL (12-16); IMMATURE GRANULOCYTES 1.1 % (0-5); LYMPHOCYTES 6.6 % (15-50); MCH 31.1 pg (26.0-34.0); MCHC 32.2 g/dL (31.0-37.0); MCV 96.6 fL (80.0-100.0); MEAN PLATELET VOLUME 9.3 fL (7.4-10.4); MONOCYTES 2.8 % (2-11); NEUTROPHILS 89.4 % (40-80); PLATELET COUNT 194 10x3/uL (130-400); RDW 13.6 % (11.5-14.5); WBC 7.5 10x3/uL (4.8-10.8)
[2016-10-05 06:01] LABS: ANION GAP 6.1 mmol/L (8-16); CALCIUM 8.6 mg/dL (8.5-10.1); CARBON DIOXIDE 38.4 mmol/L (21.0-32.0); CREATININE - SERUM 0.9 mg/dL (0.6-1.3)
[2016-10-05 06:02] LABS: POTASSIUM - SERUM 5.5 mmol/L (3.5-5.1)
--- NOTE | 2016-10-05 06:39 | NUR ---
PT IN BED RESTING. DENIES ANY NEEDS. NO S/S OF DISTRESS WILL CONTINUE TO MONITOR
--- NOTE | 2016-10-05 07:15 | NUR ---
AM ROUNDS - PT RESTING QUIETLY, ALERT AND ORIENTED. RR EVEN AND UNLABORED. NC DELIVERING O2 AT 2L. PT DENIES NEEDS AT THIS TIME, WILL CTM.
[2016-10-05 08:23] VITALS: BP 140/74
[2016-10-05 12:40] VITALS: BP 130/69
[2016-10-05] MEDS ORDERED: PREDNISONE10 MG PO (14:51)
--- NOTE | 2016-10-05 15:36 | NUR ---
PT DISHCARGED. IV CATHETER REMOVED FROM LEFT HAND WITH TIP INTACT. TELEMETRY REMOVED AND RETURNED TO [employer] FIGHTER. DISCHARGE INSTRUCTIONS PROVIDED AND PT VERBALIZED UNDERSTANDING. PT WILL DRIVE HERSELF HOME, SHE WILL BE STAYING WITH HER MOTHER. WILL CALL WHEN SHE IS READY TO BE TAKEN DOWNSTAIRS VIA WHEELCHAIR.
--- NOTE | 2016-10-06 08:20 | NUR ---
Patient Name: LANE ONEAL Encounter No: [id number] : 1960 Primary Insurance: MEDICARE A & B Anticipated DC Date: 10-05-2016 Planned Disposition: Home WITH HOME HEALTH External Planned Provider: [facility] DCP follow-up note: CM REVIEWED CHART, PT DISCHARGED HOME YESTERDAY. CM CALLED [facility] AT [phone], SPOKE TO KARLI TO RESUME HOME HEALTH SERVICES, FAXED DISCHARGE INFORMATION TO MCCLEARY AT [phone]. Bernardino Hicks, CASE MANAGEMENT
== END 2016-10-05 16:31 | disposition home health service (06) | DRG 189 ==
LOC: D.ER 20:20 → D.M2 23:08
PROVIDERS: Emergency Medicine; Family Medicine; ADMIT Family Medicine
DX: J96.22 Acute and chronic respiratory failure with hypercapnia (principal); J44.0 Chronic obstructive pulmonary disease with (acute) lower respiratory infection; F17.203 Nicotine dependence unspecified, with withdrawal; J44.1 Chronic obstructive pulmonary disease with (acute) exacerbation; J98.11 Atelectasis; J96.21 Acute and chronic respiratory failure with hypoxia; J20.9 Acute bronchitis, unspecified; K21.9 Gastro-esophageal reflux disease without esophagitis; I08.1 Rheumatic disorders of both mitral and tricuspid valves; I10 Essential (primary) hypertension; Z86.711 Personal history of pulmonary embolism; F95.2 Tourette's disorder; F41.9 Anxiety disorder, unspecified

== ENCOUNTER 2017-04-18 21:17 | Inpatient (IN) | payer MEDICARE ==
[~2017-04-18] VITALS: Ht 157.5 cm; Wt 65.3 kg
[~2017-04-18 21:17] MED LIST changes: +CORGARD40 MG; +HYDROCODONE-APA1 TAB PO
[2017-04-18 21:52] LABS: BASOPHILS 0.1 % (0-2); EOSINOPHILS 0.1 % (0-7); HEMATOCRIT 53.2 % (36.0-48.0); HEMOGLOBIN 16.8 g/dL (12-16); LYMPHOCYTES 12.6 % (15-50); MCH 31.2 pg (26.0-34.0); MCHC 31.6 g/dL (31.0-37.0); MCV 98.9 fL (80.0-100.0); MEAN PLATELET VOLUME 9.3 fL (7.4-10.4); MONOCYTES 1.1 % (2-11); NEUTROPHILS 86.1 % (40-80); RBC 5.38 10x6/uL (4.00-5.40); RDW 12.9 % (11.5-14.5); WBC 7.5 10x3/uL (4.8-10.8)
[2017-04-18 21:55] LABS: PLATELET COUNT 233 10x3/uL (130-400)
[2017-04-18 22:08] LABS: ALBUMIN 3.7 g/dL (3.4-5.0); BILIRUBIN - TOTAL 0.72 mg/dL (0.2-1.3); CALCIUM 9.7 mg/dL (8.5-10.1); CARBON DIOXIDE 24.5 mmol/L (21.0-32.0); CREATININE - SERUM 0.9 mg/dL (0.6-1.3); POTASSIUM - SERUM 4.5 mmol/L (3.5-5.1); PROTEIN - SERUM 7.3 g/dL (6.4-8.2)
[2017-04-19] MEDS ORDERED: TYLENOL #4 W/CO1 TAB PO (01:43)
[2017-04-19] MEDS ORDERED: PROPAFENONE HC225 MG PO (01:44)
[2017-04-19] MEDS ORDERED: INDERAL10 MG PO (01:45)
[2017-04-19 04:00] VITALS: BP 125/76
[2017-04-19 04:51] VITALS: BMI 26.4
[2017-04-19 08:35] VITALS: BP 116/64
[2017-04-19 12:30] VITALS: BP 109/70
[2017-04-19 13:31] VITALS: Ht 157.5 cm; Wt 65.3 kg
[2017-04-19 16:45] VITALS: BP 127/76
[2017-04-19 22:07] VITALS: BP 107/60
[2017-04-20 02:03] VITALS: BP 99/88
[2017-04-20 05:50] VITALS: BP 103/57
[2017-04-20 08:04] VITALS: BP 111/66
[2017-04-20 12:17] VITALS: BP 99/62
[2017-04-20 15:45] VITALS: BP 107/63
[2017-04-20 20:00] VITALS: BP 123/69
[2017-04-21] VITALS: BP 80/49
[2017-04-21 04:00] VITALS: BP 118/73
[2017-04-21 07:48] VITALS: BP 131/76
[2017-04-21] MEDS ORDERED: LEVAQUIN250 MG PO (13:55)
== END 2017-04-21 16:23 | disposition home or self-care (01) | DRG 202 ==
LOC: D.ER 21:17 → D.MS 04-19 00:45 → OBSVTIME 04-19 00:45 → D.MS 04-19 00:45
PROVIDERS: Family Medicine
DX: J20.9 Acute bronchitis, unspecified (principal); J44.1 Chronic obstructive pulmonary disease with (acute) exacerbation; J44.0 Chronic obstructive pulmonary disease with (acute) lower respiratory infection; F17.203 Nicotine dependence unspecified, with withdrawal; J06.9 Acute upper respiratory infection, unspecified; Z91.14 Patient's other noncompliance with medication regimen; I10 Essential (primary) hypertension; I08.1 Rheumatic disorders of both mitral and tricuspid valves; F41.9 Anxiety disorder, unspecified; D21.9 Benign neoplasm of connective and other soft tissue, unspecified; D75.1 Secondary polycythemia

== ENCOUNTER → 2017-08-15 22:55 | Outpatient (CLI) | payer MEDICARE ==
[2017-04-19 13:31] VITALS: BMI 26.3
[~2017-08-15 22:55] MED LIST changes: +INDERAL10 MG PO; +LEVAQUIN250 MG PO; +PROPAFENONE HC225 MG PO; +TYLENOL #4 W/CO1 TAB PO
== END | disposition home or self-care (01) ==
LOC: D.MAMMO 08-01 09:30
DX: Z12.31 Encounter for screening mammogram for malignant neoplasm of breast (principal)

== ENCOUNTER 2017-10-21 17:26 | Inpatient (IN) | payer MEDICARE ==
[~2017-10-21] VITALS: Ht 157.5 cm; Wt 62.1 kg
--- NOTE | ~2017-10-21 | EC ---
PATIENT:LANE ONEAL DATE OF SERVICE: 10/21/17 SEX: F MEDICAL RECORD: [id number] DATE OF : 62 LOCATION:D.MS [place] AGE OF PATIENT: 57 ADMISSION DATE: 10/21/17 REFERRING PHYSICIAN: INTERPRETING PHYSICIAN: KADIE CURRIE MD ECHOCARDIOGRAM REPORT ECHO CHARGES 4 ECHO COMPLETE Date: 10/22 CLINICAL DIAGNOSIS: CHF ECHOCARDIOGRAPHIC MEASUREMENTS (adult normal given) AC root (d.<3.7cm) 3.1 cm LV Septum d (<1.2 cm> 1.2 cm Valve Excursion 1.6 cm LV Septum (systole) 1.7 cm Left Atria (s.<4.0cm> 3.2 cm LVPW d(<1.2cm) 1.6 cm RV (d.<2.3cm) 3.8 cm LVPW (sytole) 1.7 cm LV diastole(<5.6CM) 4.5 cm MV E-F(>70mm/sec) cm LV systole 3.3 cm LVOT Diameter 1.7 cm MV exc.(>10mm) 2.0 cm Est.ejection fraction (50-75%) % DOPPLER: LVIT cm/sec A 98.0 cm/sec E 111 cm/sec LA cm/sec RVSP 28 mmHg LVOT 107 cm/sec AOP1/2T m/s Asc. Ao 159 cm/sec RVOT 92 cm/sec RA cm/sec PA 148 cm/sec AV Gradient Peak 10.06mmHg AV Mean 4.81 mmHg AV Area 1.7 cm MV Gradient Peak 5.69 mmHg MV Mean 2.03 mmHg MV Area cm COMMENTS: Senior Interactive Developer: Alexia KWOK Professional Fee Coder: 1 Dr. Currie TAPE# PACS Pericardial Effusion N DATE OF SERVICE: 10/22/2017 FINDINGS: 1. Left ventricular chamber size is within normal limits. Left ventricular systolic function is normal. Overall ejection fraction estimated at 60% to 65%. 2. Left atrium, right atrium, and right ventricle chamber sizes are within normal limits. 3. Valvular structures have normal structure and motion. 4. Doppler interrogation reveals mild mitral regurgitation, mild tricuspid regurgitation, no other valvular insufficiency or stenosis and pulmonary ECHOCARDIOGRAM REPORT [id number] LANE ONEAL systolic pressure is normal estimated 28 mmHg. 5. No evidence of pericardial effusion or left ventricular thrombus. TRANSINT:[id number] Voice Confirmation ID: [id number] DOCUMENT ID: [id number] KADIE CURRIE MD at 1325 CC: [id number] DICTATION DATE: 10/23/17 1106 DENTAL COORDINATOR: 10/23/17 1143 DIS IN 10/26/17 [place] [id number] [place] [id number]
[2017-10-21 22:45] LABS: BASOPHILS 0.3 % (0-2); EOSINOPHILS 0.3 % (0-7); HEMATOCRIT 48.6 % (36.0-48.0); HEMOGLOBIN 15.7 g/dL (12-16); IMMATURE GRANULOCYTES 0.1 % (0-5); LYMPHOCYTES 20.1 % (15-50); MCH 32.1 pg (26.0-34.0); MCHC 32.3 g/dL (31.0-37.0); MCV 99.4 fL (80.0-100.0); MEAN PLATELET VOLUME 9.6 fL (7.4-10.4); MONOCYTES 8.8 % (2-11); NEUTROPHILS 70.4 % (40-80); RBC 4.89 10x6/uL (4.00-5.40); RDW 12.7 % (11.5-14.5); WBC 6.8 10x3/uL (4.8-10.8)
[2017-10-21 22:46] LABS: PLATELET COUNT 145 10x3/uL (130-400)
[2017-10-21 23:06] LABS: ALBUMIN 3.2 g/dL (3.4-5.0); ANION GAP 8.3 mmol/L (8-16); BILIRUBIN - TOTAL 0.83 mg/dL (0.2-1.3); CALCIUM 8.5 mg/dL (8.5-10.1); CARBON DIOXIDE 31.5 mmol/L (21.0-32.0); CREATININE - SERUM 0.9 mg/dL (0.6-1.3); MAGNESIUM - SERUM 1.8 mg/dL (1.8-2.4); POTASSIUM - SERUM 4.8 mmol/L (3.5-5.1); PROTEIN - SERUM 6.7 g/dL (6.4-8.2)
[2017-10-21 23:21] VITALS: BP 129/60
[2017-10-21] MEDS ORDERED: KLONOPIN1 MG PO (23:57)
[2017-10-22 00:39] VITALS: BP 129/60; BMI 25.1
[2017-10-22 03:57] VITALS: BP 128/65
[2017-10-22 06:40] LABS: APPEARANCE HAZY (CLEAR); BACTERIA MODERATE /hpf (NONE SEEN); BILIRUBIN NEGATIVE (NEGATIVE); COLOR YELLOW (YELLOW); EPITHELIAL CELLS 25-50 /hpf (0-5); GLUCOSE NEGATIVE (NEGATIVE); KETONE NEGATIVE (NEGATIVE); MUCUS <1+ /lpf (NONE SEEN); NITRITE NEGATIVE (NEGATIVE); PROTEIN NEGATIVE (NEGATIVE); RED CELLS - URINE RARE /hpf (0-5); SPECIFIC GRAVITY 1.015 (1.005-1.020); UROBILINOGEN NORMAL (NORMAL)
[2017-10-22 08:28] VITALS: BP 125/77
[2017-10-22 08:59] VITALS: BMI 25.0
[2017-10-22 10:49] VITALS: Ht 157.5 cm; Wt 62.1 kg
[2017-10-22 12:36] VITALS: BP 111/74
[2017-10-22 16:00] VITALS: BP 123/70
[2017-10-22 22:37] VITALS: BP 126/73
[2017-10-23 04:06] VITALS: BP 112/67
[2017-10-23 06:39] LABS: ANION GAP 5.5 mmol/L (8-16); CALCIUM 8.5 mg/dL (8.5-10.1); CARBON DIOXIDE 34.1 mmol/L (21.0-32.0); CREATININE - SERUM 0.9 mg/dL (0.6-1.3); POTASSIUM - SERUM 4.6 mmol/L (3.5-5.1)
[2017-10-23 07:08] LABS: BASOPHILS 0 % (0-2); EOSINOPHILS 0.3 % (0-7); LYMPHOCYTES 14.7 % (15-50); MCH 31.6 pg (26.0-34.0); MCHC 31.9 g/dL (31.0-37.0); MCV 98.9 fL (80.0-100.0); MEAN PLATELET VOLUME 10.3 fL (7.4-10.4); MONOCYTES 3.3 % (2-11); NEUTROPHILS 81.7 % (40-80); PLATELET COUNT 166 10x3/uL (130-400); RBC 4.75 10x6/uL (4.00-5.40); RDW 12.9 % (11.5-14.5); WBC 3.6 10x3/uL (4.8-10.8)
[2017-10-23 08:23] VITALS: BP 147/86
[2017-10-23 12:33] VITALS: BP 143/70
[2017-10-23 16:05] VITALS: BP 145/86
[2017-10-23 22:41] VITALS: BP 124/70
[2017-10-24 03:58] VITALS: BP 133/76
[2017-10-24 06:08] LABS: CALC OSMOLALITY 273 mosm/kg (275-300); CALCIUM 8.6 mg/dL (8.5-10.1); CARBON DIOXIDE 31.8 mmol/L (21.0-32.0); CHLORIDE - SERUM 104 mmol/L (98-107); CREATININE - SERUM 0.7 mg/dL (0.6-1.3); GLUCOSE 172 mg/dL (74-106); POTASSIUM - SERUM 4.9 mmol/L (3.5-5.1); SODIUM 136 mmol/L (136-145); UREA NITROGEN 7 mg/dL (7-18); eGFR NON AFRICAN AMERICAN > 90 mL/min (90-120)
[2017-10-24 06:13] LABS: BASOPHILS 0 % (0-2); EOSINOPHILS 0.2 % (0-7); HEMATOCRIT 45.5 % (36.0-48.0); HEMOGLOBIN 14.7 g/dL (12-16); LYMPHOCYTES 11.9 % (15-50); MCH 31.7 pg (26.0-34.0); MCHC 32.3 g/dL (31.0-37.0); MCV 98.1 fL (80.0-100.0); MEAN PLATELET VOLUME 9.9 fL (7.4-10.4); MONOCYTES 3.3 % (2-11); NEUTROPHILS 84.6 % (40-80); PLATELET COUNT 187 10x3/uL (130-400); RBC 4.64 10x6/uL (4.00-5.40); RDW 12.9 % (11.5-14.5)
[2017-10-24 06:24] LABS: WBC 5.5 10x3/uL (4.8-10.8)
[2017-10-24 08:48] VITALS: BP 133/75
[2017-10-24 13:28] VITALS: BP 132/75
[2017-10-24 16:51] VITALS: BP 158/80
[2017-10-24 19:47] VITALS: BP 148/75
[2017-10-24 23:42] VITALS: BP 134/71
[2017-10-25 04:18] VITALS: BP 147/78
[2017-10-25 06:53] LABS: BASOPHILS 0 % (0-2); EOSINOPHILS 0 % (0-7); HEMATOCRIT 45.8 % (36.0-48.0); HEMOGLOBIN 14.7 g/dL (12-16); IMMATURE GRANULOCYTES 0.3 % (0-5); LYMPHOCYTES 13.4 % (15-50); MCH 31.3 pg (26.0-34.0); MCHC 32.1 g/dL (31.0-37.0); MCV 97.7 fL (80.0-100.0); MEAN PLATELET VOLUME 9.7 fL (7.4-10.4); MONOCYTES 5.6 % (2-11); NEUTROPHILS 80.7 % (40-80); PLATELET COUNT 189 10x3/uL (130-400); RBC 4.69 10x6/uL (4.00-5.40); RDW 13.1 % (11.5-14.5)
[2017-10-25 07:12] LABS: CALC OSMOLALITY 279 mosm/kg (275-300); CALCIUM 8.5 mg/dL (8.5-10.1); CARBON DIOXIDE 30.3 mmol/L (21.0-32.0); CHLORIDE - SERUM 100 mmol/L (98-107); CREATININE - SERUM 0.8 mg/dL (0.6-1.3); GLUCOSE 218 mg/dL (74-106); MAGNESIUM - SERUM 1.8 mg/dL (1.8-2.4); PHOSPHOROUS 3.2 mg/dL (2.5-4.9); POTASSIUM - SERUM 4.3 mmol/L (3.5-5.1); SODIUM 137 mmol/L (136-145); UREA NITROGEN 11 mg/dL (7-18); eGFR NON AFRICAN AMERICAN 78 mL/min (90-120)
[2017-10-25 07:58] VITALS: BP 134/79
[2017-10-25 12:23] VITALS: BP 146/85
[2017-10-25 16:01] VITALS: BP 130/66
[2017-10-25 19:46] VITALS: BP 181/93
[2017-10-25 23:25] VITALS: BP 151/84
[2017-10-26 03:42] VITALS: BP 132/84
[2017-10-26 05:34] LABS: BASOPHILS 0 % (0-2); EOSINOPHILS 0 % (0-7); HEMOGLOBIN 14.6 g/dL (12-16); IMMATURE GRANULOCYTES 0.2 % (0-5); LYMPHOCYTES 22.9 % (15-50); MCH 32.3 pg (26.0-34.0); MCHC 33.2 g/dL (31.0-37.0); MCV 97.3 fL (80.0-100.0); MEAN PLATELET VOLUME 9.6 fL (7.4-10.4); MONOCYTES 16.5 % (2-11); NEUTROPHILS 60.4 % (40-80); PLATELET COUNT 173 10x3/uL (130-400); RBC 4.52 10x6/uL (4.00-5.40)
[2017-10-26 05:50] LABS: CALC OSMOLALITY 273 mosm/kg (275-300); CALCIUM 8.2 mg/dL (8.5-10.1); CARBON DIOXIDE 35.9 mmol/L (21.0-32.0); CHLORIDE - SERUM 100 mmol/L (98-107); CREATININE - SERUM 0.7 mg/dL (0.6-1.3); POTASSIUM - SERUM 4.2 mmol/L (3.5-5.1); SODIUM 137 mmol/L (136-145); UREA NITROGEN 10 mg/dL (7-18); eGFR NON AFRICAN AMERICAN > 90 mL/min (90-120)
[2017-10-26 06:00] LABS: GLUCOSE 121 mg/dL (74-106)
[2017-10-26 07:54] VITALS: BP 131/76
[2017-10-26] MEDS ORDERED: BENZONATATE200 MG PO (09:41)
[2017-10-26] MEDS ORDERED: LEVAQUIN500 MG PO (09:41)
[2017-10-26] MEDS ORDERED: FLORAJEN3 CAPS460 MG PO (09:42)
[2017-10-26] MEDS ORDERED: PREDNISONE10 MG PO (09:43)
== END 2017-10-26 12:41 | disposition home or self-care (01) | DRG 189 ==
LOC: D.MS 17:26
PROVIDERS: Family Medicine; Internal Medicine Nephrology
DX: J96.21 Acute and chronic respiratory failure with hypoxia (principal); J44.1 Chronic obstructive pulmonary disease with (acute) exacerbation; F17.203 Nicotine dependence unspecified, with withdrawal; N39.0 Urinary tract infection, site not specified; I08.1 Rheumatic disorders of both mitral and tricuspid valves; E11.9 Type 2 diabetes mellitus without complications; G47.33 Obstructive sleep apnea (adult) (pediatric); K21.9 Gastro-esophageal reflux disease without esophagitis; I10 Essential (primary) hypertension; F41.9 Anxiety disorder, unspecified; F95.2 Tourette's disorder; G47.00 Insomnia, unspecified

== ENCOUNTER → 2017-12-07 19:37 | Outpatient (CLI) | payer MEDICARE ==
[2017-10-22 10:49] VITALS: BMI 25.0
[~2017-12-07 19:37] MED LIST changes: +KLONOPIN1 MG PO; +LEVAQUIN500 MG PO
== END | disposition home or self-care (01) ==
LOC: D.MAMMO 13:30
DX: R92.8 Other abnormal and inconclusive findings on diagnostic imaging of breast (principal)

== ENCOUNTER → 2017-12-27 10:43 | Outpatient (CLI) | payer MEDICARE ==
[2017-10-22 10:49] VITALS: BMI 25.0
== END | disposition home or self-care (01) ==
LOC: D.US 10:43
DX: M79.601 Pain in right arm (principal); Z98.890 Other specified postprocedural states

== ENCOUNTER 2018-03-14 15:25 | Inpatient (IN) | payer MEDICARE, MEDICAID ==
[~2018-03-14] VITALS: Ht 157.5 cm; Wt 60.8 kg
--- NOTE | ~2018-03-14 | MORECARE ---
CASE MANAGEMENT DISCHARGE SUMMARY PATIENT: LANE ONEAL UNIT: [id number] ADM DATE: 03/14/18 AGE: 57 : 62 SEX: F ROOM/BED: D.2237 AUTHOR: EDWARD TESFAYE PHYSICIAN: REFERRING PHYSICIAN: GARY SHEEHAN MD DATE OF SERVICE: 03/21/18 Discharge Plan Patient Name: LANE ONEAL Facility: [facility]:[place] : 1960 Planned Disposition: Home Anticipated Discharge Date: Discharge Date: 03/20/2018 Expected LOS: 0 Initial Reviewer: [email or web address] Initial Review Date: 03/15/2018 Generated: 03/21/18 9:52 am Comments DCP- Discharge Planning Updated by [email or web address]: Deena Rodrigueztimothy on 03/20/18 2:[address] Patient Name: LANE ONEAL Encounter No: [id number] : 1960 Primary Insurance: [facility] [employer] SOLUTIONS Anticipated DC Date: Planned Disposition: Home External Planned Provider: : DCP follow-up note: Patient and family in agreement with discharge plan. No changes to plan. Case management will follow and assist as needed. Deena Menendez DCP- Discharge Planning Updated by [id number]: Deena Menendez on 03/20/18 9:[address] I anticipate discharge home today. She does have oxygen at 3L [place] that she wears at HS with her Trilogy. She has nebulizer equipment. She denies need for any more DME or Home health services. States her mother will pick her up for discharge. No further needs identified. CM will continue ;to follow and assist with discharge planning/needs. DCP- Discharge Planning Updated by [email or web address]: Deena Menendez on 03/15/18 2:[address] Patient Name: LANE ONEAL Admission Status: ER Accout number: [id number] Admission Date: 03-14-2018 : 1960 Admission Diagnosis: Attending: GARY SHEEHAN Current LOS: 1 Anticipated DC Date: Planned Disposition: Home Primary Insurance: [facility] [employer] SOLUTIONS Discharge Planning Comments: CM met with patient to discuss discharge planning, she is alone in the room. States she lives with her mother. States she is independent with all ADL's and IADL's. States she uses [employer] as her DME company. Denies need for further DME or home health services. She does not have any outside community resources assisting in the home. CM will continue to follow and assist with discharge planning/needs. Investor Relations Coordinator: Deena Rodrigueztimothy DCPIA - Discharge Planning Initial Assessment Updated by [email or web address]: Deena Menendez on 03/15/18 3:15 pm * Is the patient Alert and Oriented? Yes * How many steps to enter\exit or inside your home? 0/0 * PCP Dr. Jose * Pharmacy [facility] [address] * Preadmission Environment Home with Family * ADLs Independent * Equipment Nebulizer Other Oxygen * List name and contact numbers for known caregivers / representatives who currently or will assist patient after discharge: Nadia Lin - mother - [phone] Tete Salcedo DTR - [phone] * Verbal permission to speak to the caregivers and representatives has been obtained from the patient. Yes * Community resources currently utilized None * Additional services required to return to the preadmission environment? No * Can the patient safely return to the preadmission environment? Yes * Has this patient been hospitalized within the prior 30 days at any hospital? No Coverage Notice Reviewer: [id number] - Deena Shon Notice Issued Date-Time: 03/20/2018 9:59 Notice Type: IM Discharge Notice Notice Delivered To: Patient Relationship to Patient: Self Assistant Professor Of Radiology Name: Delivery Method: HAND - Hand Delivered Makenzie Days: Prior Verbal Notification: Recipient Understood Notice: Yes Recipient Signature: Yes Med Rec Note Co-signed by Attending: Coverage Notice Comment: IMM explained, signed, copy given, original placed in MR Last DP export: 03/20/18 3:00 Patient Name: LANE ONEAL Page 91347 at 0852 All edits/amendments must be made on the electronic document DICTATION DATE: 03/21/18850 WAREHOUSE DISTRIBUTION MANAGER: TAISHA 03/21/18850 RPT#: [id number] DC DATE:03/20/18 STATUS: DIS IN [facility] [address] [place] [address] END OF REPORT
--- NOTE | ~2018-03-14 | MORECARE ---
CASE MANAGEMENT DISCHARGE SUMMARY PATIENT: LANE ONEAL UNIT: [id number] ADM DATE: 03/14/18 AGE: 57 : 62 SEX: F ROOM/BED: D.2237 AUTHOR: MERA,DOC PHYSICIAN: REFERRING PHYSICIAN: GARY SHEEHAN MD DATE OF SERVICE: 03/20/18 Discharge Plan Patient Name: LANE ONEAL Facility: [facility]:[place] : 1960 Planned Disposition: Home Anticipated Discharge Date: Discharge Date: Expected LOS: Initial Reviewer: [email or web address] Initial Review Date: 03/15/2018 Generated: 03/20/18 11:06 am Comments DCP- Discharge Planning Updated by [email or web address]: Deena Shon on 03/20/18 9:[address] I anticipate discharge home today. She does have oxygen at 3L NC that she wears at HS with her Trilogy. She has nebulizer equipment. She denies need for any more DME or Home health services. States her mother will pick her up for discharge. No further needs identified. CM will continue ;to follow and assist with discharge planning/needs. DCP- Discharge Planning Updated by [email or web address]: Deena Menendez on 03/15/18 2:[address] Patient Name: LANE ONEAL Admission Status: ER Accout number: [id number] Admission Date: 03-14-2018 : 1960 Admission Diagnosis: Attending: GARY SHEEHAN Current LOS: 1 Anticipated DC Date: Planned Disposition: Home Primary Insurance: [facility] MEDICARE SOLUTIONS Discharge Planning Comments: CM met with patient to discuss discharge planning, she is alone in the room. States she lives with her mother. States she is independent with all ADL's and IADL's. States she uses [employer] as her DME company. Denies need for further DME or home health services. She does not have any outside community resources assisting in the home. CM will continue to follow and assist with discharge planning/needs. Temperature Control Inspector: Denea Menendez DCPIA - Discharge Planning Initial Assessment Updated by [email or web address]: Deena Menendez on 03/15/18 3:15 pm * Is the patient Alert and Oriented? Yes * How many steps to enter\exit or inside your home? 0/0 * PCP Dr. Jose * Pharmacy [facility] on [address] * Preadmission Environment Home with Family * ADLs Independent * Equipment Nebulizer Other Oxygen * List name and contact numbers for known caregivers / representatives who currently or will assist patient after discharge: Nadia Lin - mother - [phone] Tete Salcedo - DTR - [phone] * Verbal permission to speak to the caregivers and representatives has been obtained from the patient. Yes * Community resources currently utilized None * Additional services required to return to the preadmission environment? No * Can the patient safely return to the preadmission environment? Yes * Has this patient been hospitalized within the prior 30 days at any hospital? No Coverage Notice Reviewer: [email or web address] Elysia Menendez Notice Issued Date-Time: 03/20/2018 9:59 Notice Type: IM Discharge Notice Notice Delivered To: Patient Relationship to Patient: Self Toll Operator Name: Delivery Method: HAND - Hand Delivered Makenzie Days: Prior Verbal Notification: Recipient Understood Notice: Yes Recipient Signature: Yes Med Rec Note Co-signed by Attending: Coverage Notice Comment: IMM explained, signed, copy given, original placed in MR Last DP export: 03/15/18 2:26 Patient Name: LANE ONEAL Page 99194 at 1006 All edits/amendments must be made on the electronic document DICTATION DATE: 03/20/18 1006 OCCUPATIONAL THERAPY PROFESSOR: TAISHA 03/20/18 1006 RPT#: [id number] DC DATE: STATUS: ADM IN [facility] [address] [place] [address] END OF REPORT
--- NOTE | ~2018-03-14 | MORECARE ---
CASE MANAGEMENT DISCHARGE SUMMARY PATIENT: LANE ONEAL UNIT: [id number] ADM DATE: 03/14/18 AGE: 57 : 62 SEX: F ROOM/BED: D.2237 AUTHOR: MERA,DOC PHYSICIAN: REFERRING PHYSICIAN: GARY SHEEHAN MD DATE OF SERVICE: 03/15/18 Discharge Plan Patient Name: LANE ONEAL Facility: [facility]:[place] : 1960 Planned Disposition: Home Anticipated Discharge Date: Discharge Date: Expected LOS: Initial Reviewer: [email or web address] Initial Review Date: 03/15/2018 Generated: 03/15/18 4:26 pm Comments DCP- Discharge Planning Updated by [id number]: Deena Menendez on 03/15/18 2:[address] Patient Name: LANE ONEAL Admission Status: ER Accout number: [id number] Admission Date: 03-14-2018 : 1960 Admission Diagnosis: Attending: GARY SHEEHAN Current LOS: 1 Anticipated DC Date: Planned Disposition: Home Primary Insurance: [facility] MEDICARE SOLUTIONS Discharge Planning Comments: CM met with patient to discuss discharge planning, she is alone in the room. States she lives with her mother. States she is independent with all ADL's and IADL's. States she uses [employer] as her DME company. Denies need for further DME or home health services. She does not have any outside community resources assisting in the home. CM will continue to follow and assist with discharge planning/needs. Refractory Grinder Operator: Deena Menendez DCPIA - Discharge Planning Initial Assessment Updated by [email or web address]: Deena Menendez on 03/15/18 3:15 pm * Is the patient Alert and Oriented? Yes * How many steps to enter\exit or inside your home? 0/0 * PCP Dr. Jose * Pharmacy [facility] on [address] * Preadmission Environment Home with Family * ADLs Independent * Equipment Nebulizer Other Oxygen * List name and contact numbers for known caregivers / representatives who currently or will assist patient after discharge: Nadia Lin - mother - [phone] Tete [facility], [place] - [phone] * Verbal permission to speak to the caregivers and representatives has been obtained from the patient. Yes * Community resources currently utilized None * Additional services required to return to the preadmission environment? No * Can the patient safely return to the preadmission environment? Yes * Has this patient been hospitalized within the prior 30 days at any hospital? No Last DP export: 03/15/18 2:17 Patient Name: LANE ONEAL Page 11016 at 1526 All edits/amendments must be made on the electronic document DICTATION DATE: 03/15/181525 CITY ROUTEMAN: TAISHA 03/15/181525 RPT#: [id number] DC DATE: STATUS: ADM IN [facility] [address] [place] [address] END OF REPORT
--- NOTE | ~2018-03-14 | CN ---
PATIENT NAME:LANE ONEAL MEDICAL RECORD: [id number] : [birth year] LOCATION:D.MS [address]37 ADMIT DATE: 03/14/18 ACCOUNT: [id number] CONSULTING PHYSICIAN: MOI HANKINS MD REFERRING PHYSICIAN: GARY SHEEHAN MD DATE OF CONSULTATION: 03/15/2018 CONSULT REQUESTING PHYSICIAN: Dr. Scott. REASON FOR CONSULTATION: Acute exacerbation of chronic obstructive pulmonary disease. HISTORY OF PRESENT ILLNESS: Ms. Oneal is a 57-year-old female, very well known to our service. The patient is sick for the last few days. She is coughing. She is wheezing. She has shortness of breath. The patient came into the ER. There are no fever and chills, no night sweats. REVIEW OF SYSTEMS: As in the history of present illness. PAST MEDICAL HISTORY: 1. COPD. 2. Nocturnal hypoxia. 3. Ex-tobacco dependence syndrome. 4. Peptic ulcer disease. 5. Hypertension. 6. Asthma. 7. Gastroesophageal reflux disease. 8. Rheumatic heart disease. 9. History of pulmonary thromboembolism. PAST SURGICAL HISTORY: 1. Cholecystectomy and liver biopsy. 2. Sinus surgery. ALLERGIES: SHE IS ALLERGIC TO SULFA, IODINE, LATEX, AND PENICILLIN. MEDICATIONS: [employer] is reviewed. PERSONAL AND SOCIAL HISTORY: The patient is an ex-smoker. She is a nondrinker. FAMILY HISTORY: Noncontributory. PHYSICAL EXAMINATION: GENERAL: Now, the patient is lying comfortably in bed. She is not in acute distress. VITAL SIGNS: The blood pressure is 167/95, pulse is 82, respiration 18, SpO2 of 92% on 2 liters nasal cannula. HEENT: Conjunctivae are pink. Sclerae are not icteric. NECK: Supple, no JVD. CHEST: The chest excursion is minimal on both sides. There is no wheeze, no rales. HEART: Rhythm regular, normal sound, no murmur. ABDOMEN: Soft, bowel sounds present. No hepatosplenomegaly. RECTAL: Deferred. EXTREMITIES: No cyanosis, no clubbing, no pedal edema. CONSULT REPORT [id number] LANE ONEAL SKIN: Warm, normal turgor. CENTRAL NERVOUS SYSTEM: The patient is awake and alert. There are no obvious cranial nerve abnormalities. The gait was not tested. CHEST RADIOGRAPH: There is no acute infiltrate. OTHER LABORATORY DATA: CBC: The WBC is 3.6, hemoglobin 15.3, hematocrit 47.8, the platelet count is 196. IMPRESSION: 1. Acute exacerbation of chronic obstructive pulmonary disease. 2. Asthma. 3. Tracheobronchitis. 4. Ocbne-zo-elagemj hypoxic respiratory failure. 5. Gastroesophageal reflux disease. 6. Ex-smoker. RECOMMENDATIONS: 1. Continue albuterol and ipratropium nebulizer, add Brovana and budesonide nebulizer. 2. Methylprednisolone IV. 3. Continue empiric antibiotic. 4. Mucinex DM 2 tablets b.i.d. 5. Follow up labs. Dr. Scott, thank you for involving me in the care of Ms. Oneal. TRANSINT:[id number] Voice Confirmation ID: [id number] DOCUMENT ID: [id number] MOI HANKINS MD at 1339 CC: [id number] DICTATION DATE: 03/15/18 161 DIE TESTER: 03/15/18 3468 ADM IN [place] [address] [place] [address]
--- NOTE | ~2018-03-14 | MORECARE ---
CASE MANAGEMENT DISCHARGE SUMMARY PATIENT: LANE ONEAL UNIT: [id number] ADM DATE: 03/14/18 AGE: 57 : 62 SEX: F ROOM/BED: D.2237 AUTHOR: EDWARD TESFAYE PHYSICIAN: REFERRING PHYSICIAN: GARY SHEEHAN MD DATE OF SERVICE: 03/20/18 Discharge Plan Patient Name: LANE ONEAL Facility: [facility]:[place] : 1960 Planned Disposition: Home Anticipated Discharge Date: Discharge Date: Expected LOS: Initial Reviewer: [email or web address] Initial Review Date: 03/15/2018 Generated: 03/20/18 5:00 pm Comments DCP- Discharge Planning Updated by [email or web address]: Deena Menendez on 03/20/18 2:[address] Patient Name: LANE ONEAL Encounter No: [id number] : 1960 Primary Insurance: [facility] MEDICARE SOLUTIONS Anticipated DC Date: Planned Disposition: Home External Planned Provider: : DCP follow-up note: Patient and family in agreement with discharge plan. No changes to plan. Case management will follow and assist as needed. Deena Menendez DCP- Discharge Planning Updated by [id number]: Deena Menendez on 03/20/18 9:[address] I anticipate discharge home today. She does have oxygen at 3L [place] that she wears at HS with her Trilogy. She has nebulizer equipment. She denies need for any more DME or Home health services. States her mother will pick her up for discharge. No further needs identified. CM will continue ;to follow and assist with discharge planning/needs. DCP- Discharge Planning Updated by [id number]: Deena Menendez on 03/15/18 2:[address] Patient Name: LANE ONEAL Admission Status: ER Accout number: [id number] Admission Date: 03-14-2018 : 1960 Admission Diagnosis: Attending: GARY SHEEHAN Current LOS: 1 Anticipated DC Date: Planned Disposition: Home Primary Insurance: [facility] MEDICARE SOLUTIONS Discharge Planning Comments: CM met with patient to discuss discharge planning, she is alone in the room. States she lives with her mother. States she is independent with all ADL's and IADL's. States she uses [employer] as her DME company. Denies need for further DME or home health services. She does not have any outside community resources assisting in the home. CM will continue to follow and assist with discharge planning/needs. Leaf Conditioner: Deena Menendez DCPIA - Discharge Planning Initial Assessment Updated by [email or web address]: Deena Shon on 03/15/18 3:15 pm * Is the patient Alert and Oriented? Yes * How many steps to enter\exit or inside your home? 0/0 * PCP Dr. Jose * Pharmacy [facility] on [address] * Preadmission Environment Home with Family * ADLs Independent * Equipment Nebulizer Other Oxygen * List name and contact numbers for known caregivers / representatives who currently or will assist patient after discharge: Nadia Lin - mother - [phone] Tete Salcedo DTR - [phone] * Verbal permission to speak to the caregivers and representatives has been obtained from the patient. Yes * Community resources currently utilized None * Additional services required to return to the preadmission environment? No * Can the patient safely return to the preadmission environment? Yes * Has this patient been hospitalized within the prior 30 days at any hospital? No Coverage Notice Reviewer: [email or web address] - Deena Shon Notice Issued Date-Time: 03/20/2018 9:59 Notice Type: IM Discharge Notice Notice Delivered To: Patient Relationship to Patient: Self Marine Steamfitter Name: Delivery Method: HAND - Hand Delivered Makenzie Days: Prior Verbal Notification: Recipient Understood Notice: Yes Recipient Signature: Yes Med Rec Note Co-signed by Attending: Coverage Notice Comment: IMM explained, signed, copy given, original placed in MR Last DP export: 03/20/18 9:06 Patient Name: LANE ONEAL Page 55069 at 1600 All edits/amendments must be made on the electronic document DICTATION DATE: 03/20/18 1600 OCEAN EXPORT AGENT: TAISHA 03/20/18 1600 RPT#: [id number] DC DATE: STATUS: ADM IN [facility] [address] [place] [address] END OF REPORT
--- NOTE | ~2018-03-14 | MORECARE ---
CASE MANAGEMENT DISCHARGE SUMMARY PATIENT: LANE ONEAL UNIT: [id number] ADM DATE: 03/14/18 AGE: 57 : 62 SEX: F ROOM/BED: D.[facility] AUTHOR: EDWARD TESFAYE PHYSICIAN: REFERRING PHYSICIAN: GARY SHEEHAN MD DATE OF SERVICE: 03/15/18 Discharge Plan Patient Name: LANE ONEAL [facility] [facility] 1960 Planned Disposition: Home Anticipated Discharge Date: Discharge Date: Expected LOS: Initial Reviewer: [email or web address] Initial Review Date: 03/15/2018 Generated: 03/15/18 4:17 pm DCPIA - Discharge Planning Initial Assessment Updated by [email or web address]: Deena Menendez on 03/15/18 3:15 pm * Is the patient Alert and Oriented? Yes * How many steps to enter\exit or inside your home? 0/0 * PCP Dr. Jose * Pharmacy [facility] on [address] * Preadmission Environment Home with Family * ADLs Independent * Equipment Nebulizer Other Oxygen * List name and contact numbers for known caregivers / representatives who currently or will assist patient after discharge: Nadia Lin [facility] - [phone] Tete [facility] [phone] * Verbal permission to speak to the caregivers and representatives has been obtained from the patient. Yes * Community resources currently utilized None * Additional services required to return to the preadmission environment? No * Can the patient safely return to the preadmission environment? Yes * Has this patient been hospitalized within the prior 30 days at any hospital? No Patient Name: LANE ONEAL Page 50306 at 1517 All edits/amendments must be made on the electronic document DICTATION DATE: 03/15/181515 CREDIT CARD CLERK: TAISHA 03/15/181515 RPT#: [id number] DC DATE: STATUS: ADM IN [facility] [address] [place] [address] END OF REPORT
[2018-03-14 16:37] LABS: BASOPHILS 0.2 % (0-2); EOSINOPHILS 0 % (0-7); HEMOGLOBIN 16.3 g/dL (12-16); IMMATURE GRANULOCYTES 0.4 % (0-5); LYMPHOCYTES 15.9 % (15-50); MCH 31.3 pg (26.0-34.0); MCHC 32.6 g/dL (31.0-37.0); MCV 96.2 fL (80.0-100.0); MONOCYTES 8.5 % (2-11); PLATELET COUNT 186 10x3/uL (130-400); RDW 13.9 % (11.5-14.5); WBC 4.6 10x3/uL (4.8-10.8)
[2018-03-14 16:49] LABS: APTT 22.5 SECONDS (22.8-39.4); INR 0.87 (0.85-1.17); PROTIME 11.4 SECONDS (11.6-15.0)
[2018-03-14 16:54] LABS: ALBUMIN 3.4 g/dL (3.4-5.0); ALKALINE PHOSPHATASE 79 U/L (46-116); ALT (SGPT) 23 U/L (10-68); BILIRUBIN - TOTAL 0.53 mg/dL (0.2-1.3); CALC OSMOLALITY 279 mosm/kg (275-300); CALCIUM 8.6 mg/dL (8.5-10.1); CARBON DIOXIDE 28.7 mmol/L (21.0-32.0); CHLORIDE - SERUM 103 mmol/L (98-107); CREATININE - SERUM 0.7 mg/dL (0.6-1.3); GLUCOSE 106 mg/dL (74-106); POTASSIUM - SERUM 4.9 mmol/L (3.5-5.1); PROTEIN - SERUM 7.5 g/dL (6.4-8.2); SODIUM 140 mmol/L (136-145); UREA NITROGEN 14 mg/dL (7-18); eGFR NON AFRICAN AMERICAN > 90 mL/min (90-120)
[2018-03-14 17:04] LABS: CREATINE KINASE 111 UL (21-215); PRO BNP 618 pg/mL (0-125)
[2018-03-14 17:05] LABS: TROPONIN-I < 0.017 ng/mL (0.000-0.060)
[2018-03-14] MEDS ORDERED: OMEPRAZOLE40 MG PO (20:42)
[2018-03-14 21:01] VITALS: BP 146/81
[2018-03-14 21:41] VITALS: BP 146/81; BMI 24.5
[2018-03-15 01:39] VITALS: BP 154/80
[2018-03-15 05:58] VITALS: BP 167/95
[2018-03-15 06:20] LABS: BASOPHILS 0 % (0-2); EOSINOPHILS 0 % (0-7); HEMATOCRIT 47.8 % (36.0-48.0); HEMOGLOBIN 15.3 g/dL (12-16); IMMATURE GRANULOCYTES 0.3 % (0-5); LYMPHOCYTES 15.8 % (15-50); MCH 30.7 pg (26.0-34.0); MCV 95.8 fL (80.0-100.0); MEAN PLATELET VOLUME 9.9 fL (7.4-10.4); MONOCYTES 3.9 % (2-11); PLATELET COUNT 196 10x3/uL (130-400); RBC 4.99 10x6/uL (4.00-5.40); RDW 13.8 % (11.5-14.5); WBC 3.6 10x3/uL (4.8-10.8)
[2018-03-15 06:39] LABS: ALBUMIN 3.1 g/dL (3.4-5.0); ANION GAP 12.9 mmol/L (8-16); BILIRUBIN - TOTAL 0.31 mg/dL (0.2-1.3); CALCIUM 8.3 mg/dL (8.5-10.1); CREATININE - SERUM 0.9 mg/dL (0.6-1.3); POTASSIUM - SERUM 3.9 mmol/L (3.5-5.1); PROTEIN - SERUM 6.7 g/dL (6.4-8.2)
[2018-03-15 08:48] VITALS: BP 167/88
[2018-03-15 12:45] VITALS: BP 167/75; BP 175/92
[2018-03-15 13:30] VITALS: Ht 157.5 cm; Wt 60.8 kg
[2018-03-15 16:46] VITALS: BP 157/79
[2018-03-15 21:25] VITALS: BP 151/87
[2018-03-16 04:23] VITALS: BP 148/67
[2018-03-16 04:31] LABS: BASOPHILS 0.2 % (0-2); EOSINOPHILS 0 % (0-7); HEMATOCRIT 48.1 % (36.0-48.0); HEMOGLOBIN 15.8 g/dL (12-16); IMMATURE GRANULOCYTES 0.4 % (0-5); LYMPHOCYTES 14.8 % (15-50); MCHC 32.8 g/dL (31.0-37.0); MCV 94.3 fL (80.0-100.0); MEAN PLATELET VOLUME 9.7 fL (7.4-10.4); MONOCYTES 7.3 % (2-11); NEUTROPHILS 77.3 % (40-80); PLATELET COUNT 165 10x3/uL (130-400); RDW 13.4 % (11.5-14.5); WBC 4.5 10x3/uL (4.8-10.8)
[2018-03-16 04:56] LABS: ALBUMIN 2.8 g/dL (3.4-5.0); ANION GAP 11.6 mmol/L (8-16); BILIRUBIN - TOTAL 0.3 mg/dL (0.2-1.3); CALCIUM 8.4 mg/dL (8.5-10.1); CARBON DIOXIDE 30.2 mmol/L (21.0-32.0); CREATININE - SERUM 1.1 mg/dL (0.6-1.3); POTASSIUM - SERUM 3.8 mmol/L (3.5-5.1); PROTEIN - SERUM 6.3 g/dL (6.4-8.2)
[2018-03-16 08:30] VITALS: BP 127/68
[2018-03-16 12:32] VITALS: BP 134/79
[2018-03-16 16:48] VITALS: BP 140/78
[2018-03-16 21:19] VITALS: BP 156/90
[2018-03-17 04:53] LABS: BASOPHILS 0 % (0-2); EOSINOPHILS 0 % (0-7); HEMATOCRIT 47.1 % (36.0-48.0); HEMOGLOBIN 15.6 g/dL (12-16); IMMATURE GRANULOCYTES 0.5 % (0-5); LYMPHOCYTES 13.3 % (15-50); MCH 30.8 pg (26.0-34.0); MCHC 33.1 g/dL (31.0-37.0); MCV 92.9 fL (80.0-100.0); MEAN PLATELET VOLUME 9.8 fL (7.4-10.4); MONOCYTES 5.4 % (2-11); NEUTROPHILS 80.8 % (40-80); PLATELET COUNT 176 10x3/uL (130-400); RBC 5.07 10x6/uL (4.00-5.40); RDW 13.2 % (11.5-14.5); WBC 4.1 10x3/uL (4.8-10.8)
[2018-03-17 05:17] LABS: ALBUMIN 2.8 g/dL (3.4-5.0); ANION GAP 11.2 mmol/L (8-16); BILIRUBIN - TOTAL 0.31 mg/dL (0.2-1.3); CARBON DIOXIDE 30.5 mmol/L (21.0-32.0); POTASSIUM - SERUM 3.7 mmol/L (3.5-5.1); PROTEIN - SERUM 6.2 g/dL (6.4-8.2)
[2018-03-17 08:48] VITALS: BP 153/83
[2018-03-17 16:43] VITALS: BP 141/78
[2018-03-17 21:15] VITALS: BP 139/72
[2018-03-18 01:19] VITALS: BP 124/74
[2018-03-18 05:15] VITALS: BP 155/90
[2018-03-18 06:01] LABS: BASOPHILS 0 % (0-2); EOSINOPHILS 0 % (0-7); HEMATOCRIT 47.7 % (36.0-48.0); HEMOGLOBIN 15.8 g/dL (12-16); IMMATURE GRANULOCYTES 1.2 % (0-5); LYMPHOCYTES 12.2 % (15-50); MCH 30.6 pg (26.0-34.0); MCHC 33.1 g/dL (31.0-37.0); MCV 92.3 fL (80.0-100.0); MEAN PLATELET VOLUME 9.4 fL (7.4-10.4); MONOCYTES 8.5 % (2-11); NEUTROPHILS 78.1 % (40-80); PLATELET COUNT 194 10x3/uL (130-400); RBC 5.17 10x6/uL (4.00-5.40); RDW 12.7 % (11.5-14.5)
[2018-03-18 06:15] LABS: ALBUMIN 2.9 g/dL (3.4-5.0); ANION GAP 9.9 mmol/L (8-16); BILIRUBIN - TOTAL 0.42 mg/dL (0.2-1.3); CALCIUM 8.3 mg/dL (8.5-10.1); CARBON DIOXIDE 33.2 mmol/L (21.0-32.0); CREATININE - SERUM 1.1 mg/dL (0.6-1.3); POTASSIUM - SERUM 4.1 mmol/L (3.5-5.1); PROTEIN - SERUM 6.2 g/dL (6.4-8.2)
[2018-03-18 10:21] VITALS: BP 151/84
[2018-03-18 14:02] VITALS: BP 125/52
[2018-03-18 17:25] VITALS: BP 104/80
[2018-03-18 20:51] VITALS: BP 144/73
[2018-03-19 05:05] VITALS: BP 132/84
[2018-03-19 06:41] LABS: BASOPHILS 0 % (0-2); EOSINOPHILS 0 % (0-7); HEMOGLOBIN 15.9 g/dL (12-16); LYMPHOCYTES 15.5 % (15-50); MCHC 33.1 g/dL (31.0-37.0); MCV 93.6 fL (80.0-100.0); MEAN PLATELET VOLUME 9.7 fL (7.4-10.4); MONOCYTES 12.7 % (2-11); NEUTROPHILS 70.8 % (40-80); PLATELET COUNT 207 10x3/uL (130-400); RBC 5.13 10x6/uL (4.00-5.40); RDW 12.9 % (11.5-14.5)
[2018-03-19 07:00] LABS: ALBUMIN 2.8 g/dL (3.4-5.0); ALKALINE PHOSPHATASE 56 U/L (46-116); BILIRUBIN - TOTAL 0.56 mg/dL (0.2-1.3); CALC OSMOLALITY 278 mosm/kg (275-300); CALCIUM 8.2 mg/dL (8.5-10.1); CARBON DIOXIDE 38.7 mmol/L (21.0-32.0); CHLORIDE - SERUM 97 mmol/L (98-107); GLUCOSE 99 mg/dL (74-106); PROTEIN - SERUM 5.9 g/dL (6.4-8.2); SODIUM 138 mmol/L (136-145); UREA NITROGEN 21 mg/dL (7-18)
[2018-03-19 07:03] LABS: ALT (SGPT) 41 U/L (10-68); CREATININE - SERUM 0.7 mg/dL (0.6-1.3); POTASSIUM - SERUM 4.8 mmol/L (3.5-5.1); eGFR NON AFRICAN AMERICAN > 90 mL/min (90-120)
[2018-03-19 08:33] VITALS: BP 150/80
[2018-03-19 13:07] VITALS: BP 113/67
[2018-03-19 16:48] VITALS: BP 131/76
[2018-03-19 20:55] VITALS: BP 141/77
[2018-03-20 04:02] LABS: BASOPHILS 0 % (0-2); EOSINOPHILS 0 % (0-7); HEMATOCRIT 49.1 % (36.0-48.0); HEMOGLOBIN 16.1 g/dL (12-16); LYMPHOCYTES 10.2 % (15-50); MCH 30.9 pg (26.0-34.0); MCHC 32.8 g/dL (31.0-37.0); MCV 94.2 fL (80.0-100.0); MEAN PLATELET VOLUME 9.5 fL (7.4-10.4); MONOCYTES 7.7 % (2-11); NEUTROPHILS 81.1 % (40-80); PLATELET COUNT 195 10x3/uL (130-400); RBC 5.21 10x6/uL (4.00-5.40); WBC 4.8 10x3/uL (4.8-10.8)
[2018-03-20 04:28] LABS: ALBUMIN 2.9 g/dL (3.4-5.0); ANION GAP 10.3 mmol/L (8-16); BILIRUBIN - TOTAL 0.6 mg/dL (0.2-1.3); CALCIUM 8.3 mg/dL (8.5-10.1); CARBON DIOXIDE 35.1 mmol/L (21.0-32.0); POTASSIUM - SERUM 4.4 mmol/L (3.5-5.1); PROTEIN - SERUM 6.2 g/dL (6.4-8.2)
[2018-03-20 05:00] VITALS: BP 139/75
[2018-03-20 08:47] VITALS: BP 142/75
[2018-03-20 12:00] VITALS: BP 108/66
[2018-03-20] MEDS ORDERED: ZPAK PO (14:58)
[2018-03-20] MEDS ORDERED: PREDNISONE10 MG PO (14:59)
[2018-03-20] MEDS ORDERED: DIFLUCAN150 MG PO (15:03)
[2018-03-20 16:00] VITALS: BP 120/71
== END 2018-03-20 18:20 | disposition home or self-care (01) | DRG 189 ==
LOC: D.ER 15:25 → D.EDHOLD 18:20 → D.MS 18:20
PROVIDERS: Family Medicine
DX: J96.11 Chronic respiratory failure with hypoxia (principal); J44.1 Chronic obstructive pulmonary disease with (acute) exacerbation; F17.203 Nicotine dependence unspecified, with withdrawal; I10 Essential (primary) hypertension; F32.9 Major depressive disorder, single episode, unspecified; J40 Bronchitis, not specified as acute or chronic; J96.12 Chronic respiratory failure with hypercapnia

== ENCOUNTER → 2018-06-12 14:42 | Outpatient (CLI) | payer MEDICARE, OTHER, MEDICAID ==
[2018-03-15 13:30] VITALS: BMI 24.5
[~2018-06-12 14:42] MED LIST changes: +DIFLUCAN150 MG PO; +ZPAK PO
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
== END | disposition home or self-care (01) ==
LOC: D.HCCARDIO 14:30
PROVIDERS: ATTEND Internal Medicine Interventional Cardiology
DX: I49.9 Cardiac arrhythmia, unspecified (principal)

== ENCOUNTER 2018-10-19 18:35 | Inpatient (IN) | payer MEDICARE, OTHER, MEDICAID ==
[~2018-10-19] VITALS: Ht 157.5 cm; Wt 54.4 kg
[2018-10-19] MEDS ORDERED: HYDROCODON-ACE1 EAC7 PO (19:04)
[2018-10-19 20:02] VITALS: BP 90/56
[2018-10-19 20:19] LABS: BASOPHILS 0.2 % (0-2); EOSINOPHILS 1.5 % (0-7); HEMATOCRIT 45.5 % (36.0-48.0); LYMPHOCYTES 41.1 % (15-50); MCH 30.5 pg (26.0-34.0); MCV 92.7 fL (80.0-100.0); MEAN PLATELET VOLUME 9.5 fL (7.4-10.4); MONOCYTES 11.8 % (2-11); NEUTROPHILS 45.4 % (40-80); RBC 4.91 10x6/uL (4.00-5.40); WBC 4.8 10x3/uL (4.8-10.8)
[2018-10-19 20:21] LABS: PLATELET COUNT 153 10x3/uL (130-400)
[2018-10-19 20:36] LABS: ALBUMIN 3.3 g/dL (3.4-5.0); ANION GAP 8.6 mmol/L (8-16); BILIRUBIN - TOTAL 0.62 mg/dL (0.2-1.3); CALCIUM 8.7 mg/dL (8.5-10.1); CARBON DIOXIDE 31.3 mmol/L (21.0-32.0); CREATININE - SERUM 1.1 mg/dL (0.6-1.3); POTASSIUM - SERUM 3.9 mmol/L (3.5-5.1); PROTEIN - SERUM 6.5 g/dL (6.4-8.2)
[2018-10-19 22:39] VITALS: BP 90/50; BMI 22.0
[2018-10-20 00:46] VITALS: BP 99/57
[2018-10-20 01:13] LABS: APPEARANCE CLEAR (CLEAR); BILIRUBIN NEGATIVE (NEGATIVE); COLOR YELLOW (YELLOW); GLUCOSE NEGATIVE (NEGATIVE); KETONE NEGATIVE (NEGATIVE); NITRITE NEGATIVE (NEGATIVE); PROTEIN NEGATIVE (NEGATIVE); UROBILINOGEN NORMAL (NORMAL)
[2018-10-20 04:36] VITALS: BP 88/57
[2018-10-20 07:37] LABS: ALBUMIN 3.1 g/dL (3.4-5.0); ANION GAP 9.3 mmol/L (8-16); BILIRUBIN - TOTAL 0.42 mg/dL (0.2-1.3); CALCIUM 8.4 mg/dL (8.5-10.1); MAGNESIUM - SERUM 1.7 mg/dL (1.8-2.4); PHOSPHOROUS 4.8 mg/dL (2.5-4.9); POTASSIUM - SERUM 4.3 mmol/L (3.5-5.1); PROTEIN - SERUM 6.2 g/dL (6.4-8.2)
[2018-10-20 08:00] VITALS: BP 95/56
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
[2018-10-20 12:29] VITALS: BP 104/67
[2018-10-20 12:44] VITALS: Ht 157.5 cm; Wt 54.4 kg
--- NOTE | 2018-10-20 13:25 | NUR ---
PT D/C WITH ALL OF HER BELONGINGS VIA WHEELCHAIR PER PERSONAL VEHICHLE. D/C PAPERWORK SIGNED NO FURTHER QUESTIONS AND VERBALIZED UNDERSTANDING. HEART MONITOR TAKEN OFF AND RETURNED TO MONITORS.
[2018-10-20 20:00] VITALS: BP 110/63
[2018-10-21] VITALS: BP 115/71
[2018-10-21 04:00] VITALS: BP 99/62
--- NOTE | 2018-10-21 07:29 | NUR ---
ROUNDING DONE WITH PATIENT LAYING ON LEFT SIDE, GLASSES ON TOP OF HEAD. ON 2L PER NC. ON HEART MONITOR SHOWING SR, HR 80. LEFT WRIST PIV SEEN WITH SALINE LOCK.
[2018-10-21 08:02] VITALS: BP 131/67
--- NOTE | 2018-10-21 08:57 | NUR ---
NEW ORDERS PER BOY DE APN.
--- NOTE | 2018-10-21 09:33 | NUR ---
I CALLED LAB TO SEE WHERE RESULTS OF AM DRAWS ARE AT. THEY ARE PRINTING LABELS AND WILL HAVE SOMEONE DOWN TO DRAW.
[2018-10-21 09:52] LABS: BASOPHILS 0 % (0-2); EOSINOPHILS 0 % (0-7); HEMATOCRIT 45.5 % (36.0-48.0); HEMOGLOBIN 15.3 g/dL (12-16); IMMATURE GRANULOCYTES 0.3 % (0-5); LYMPHOCYTES 11.1 % (15-50); MCH 31.1 pg (26.0-34.0); MCHC 33.6 g/dL (31.0-37.0); MCV 92.5 fL (80.0-100.0); MEAN PLATELET VOLUME 9.8 fL (7.4-10.4); MONOCYTES 1.4 % (2-11); NEUTROPHILS 87.2 % (40-80); PLATELET COUNT 158 10x3/uL (130-400); RBC 4.92 10x6/uL (4.00-5.40); RDW 12.6 % (11.5-14.5); WBC 3.5 10x3/uL (4.8-10.8)
[2018-10-21 10:01] LABS: ANION GAP 7.9 mmol/L (8-16); CALCIUM 8.5 mg/dL (8.5-10.1); CARBON DIOXIDE 32.3 mmol/L (21.0-32.0); CREATININE - SERUM 1.2 mg/dL (0.6-1.3); POTASSIUM - SERUM 4.2 mmol/L (3.5-5.1)
--- NOTE | 2018-10-21 10:06 | NUR ---
POTASSIUM ON EP WITH RESULTS OF 4.2. ADDED MAG AND PHOS TO LAB.
[2018-10-21 10:40] LABS: MAGNESIUM - SERUM 1.6 mg/dL (1.8-2.4); PHOSPHOROUS 4.1 mg/dL (2.5-4.9)
[2018-10-21 11:36] VITALS: BP 128/70
--- NOTE | 2018-10-21 12:38 | NUR ---
PATIENT UP TO GET ICE FOR HER SODA. DENIES NEEDS.
--- NOTE | 2018-10-21 13:18 | NUR ---
DR BEGUM IN TO SEE PATIENT.
--- NOTE | 2018-10-21 14:19 | NUR ---
DR VACA IN TO SEE PATIENT.
[2018-10-21 15:35] VITALS: BP 110/62
--- NOTE | 2018-10-21 18:34 | NUR ---
IV TO LEFT WRIST INFILTRATING. IV CATH REMOVED WITH TIP INTACT. 22 G X 1 STICK PER THIS NURSE TO INNER RIGHT WRIST AREA. TOLERATED WELL.
--- NOTE | 2018-10-21 19:05 | NUR ---
PATIENT RESTING IN BED AND DENIES NEEDS AT THIS TIME. BED IN LOWEST POSITION AND CALL LIGHT WITHIN REACH. ENCOURAGED THE PATIENT TO CALL IF SHE HAS NEEDS. WILL CONTINUE TO MONITOR.
[2018-10-21 20:05] VITALS: BP 120/60
[2018-10-22 01:08] VITALS: BP 106/60
[2018-10-22 04:00] VITALS: BP 93/55
--- NOTE | 2018-10-22 07:13 | NUR ---
AM ROUNDING DONE WITH PATIENT UP IN ROOM WANDERING AROUND. ON ROOM AIR. LEFT FA PIV SEEN WITH SALINE LOCK. ON EP, NO LAB VALUES SEEN AT THIS TIME. IN REPORT, NORCO WAS ALREADY GIVEN FOR CHRONIC BACK PAIN. DENIES NEEDS.
[2018-10-22 07:43] VITALS: BP 117/66
[2018-10-22 11:19] VITALS: BP 103/58
--- NOTE | 2018-10-22 13:14 | NUR ---
DR BEGUM IN TO SEE PATIENT. NEW ORDERS RECEIVED.
--- NOTE | 2018-10-22 13:26 | NUR ---
DR VACA IN TO SEE PATIENT.
[2018-10-22 15:20] VITALS: BP 123/69
--- NOTE | 2018-10-22 17:38 | NUR ---
STILL UNABLE TO OBTAIN RESP CULTURE.
--- NOTE | 2018-10-22 19:14 | NUR ---
PATIENT RESTING IN BED WITH NO S/S OF DISTRESS AND DENIES NEEDS AT THIS TIME. BED IN LOWEST POSITION AND CALL LIGHT WITHIN REACH. ENCOURAGED THE PATIENT TO CALL IF SHE HAS NEEDS. WILL CONTINUE TO MONITOR.
[2018-10-22 20:12] VITALS: BP 131/68
[2018-10-23 00:23] VITALS: BP 117/66
[2018-10-23 04:37] VITALS: BP 120/69
--- NOTE | 2018-10-23 07:00 | NUR ---
PT ALERT AND ORIENTED. RR EVEN AND UNLABORED. AMBULATING IN HALLWAY. WILL CONTINUE TO MONITOR.
[2018-10-23 07:21] LABS: BASOPHILS 0 % (0-2); EOSINOPHILS 0 % (0-7); HEMATOCRIT 45.3 % (36.0-48.0); HEMOGLOBIN 14.8 g/dL (12-16); IMMATURE GRANULOCYTES 0.2 % (0-5); LYMPHOCYTES 16.2 % (15-50); MCH 30.3 pg (26.0-34.0); MCHC 32.7 g/dL (31.0-37.0); MCV 92.8 fL (80.0-100.0); MEAN PLATELET VOLUME 10.1 fL (7.4-10.4); MONOCYTES 9.8 % (2-11); NEUTROPHILS 73.8 % (40-80); PLATELET COUNT 176 10x3/uL (130-400); RBC 4.88 10x6/uL (4.00-5.40); WBC 4.1 10x3/uL (4.8-10.8)
[2018-10-23 07:27] LABS: ANION GAP 7.2 mmol/L (8-16); CALCIUM 8.5 mg/dL (8.5-10.1); CARBON DIOXIDE 36.3 mmol/L (21.0-32.0); POTASSIUM - SERUM 4.5 mmol/L (3.5-5.1)
[2018-10-23 08:58] VITALS: BP 114/76
--- NOTE | 2018-10-23 09:23 | NUR ---
Nutrition Follow-up: Pt reports good appetite/PO intake. No N/V but some constipation. Noted Miralax BID ordered 10/22. Diet: Regular PO intake: 80% avr meal intake BM: 10/22 Wt stable Labs noted: Glu 120, BUN 21 Meds noted: Prednisone, Lasix, Protonix, Miralax Rec continue current diet as tolerated. RD following.
--- NOTE | 2018-10-23 09:57 | MORECARE ---
CASE MANAGEMENT DISCHARGE SUMMARY PATIENT: LANE ONEAL UNIT: [id number] ADM DATE: 10/19/18 AGE: 58 : 62 SEX: F ROOM/BED: D.1212 AUTHOR: EDWARD TEFSAYE PHYSICIAN: REFERRING PHYSICIAN: LUCAS AMATO DO DATE OF SERVICE: 10/23/18 Discharge Plan Patient Name: LANE ONEAL Facility: [facility]:[place] : 1960 Planned Disposition: Home Anticipated Discharge Date: Discharge Date: Expected LOS: Initial Reviewer: [email or web address] Initial Review Date: 10/23/2018 Generated: 10/23/18 10:57 am Coverage Notice Reviewer: [id number] Elysia Gonzalez Notice Issued Date-Time: 10/23/2018 9:00 Notice Type: IM Discharge Notice Notice Delivered To: Patient Relationship to Patient: Self Manager Assembly Name: Delivery Method: HAND - Hand Delivered Makenzie Days: Prior Verbal Notification: Recipient Understood Notice: Yes Recipient Signature: Yes Med Rec Note Co-signed by Attending: Coverage Notice Comment: Patient Name: LANE ONEAL Page [phone] at 0957 All edits/amendments must be made on the electronic document DICTATION DATE: 10/23/18956 JACKET PREPARER: TAISHA 10/23/18956 RPT#: [id number] DC DATE: STATUS: ADM IN [facility] [address] [place] [address] END OF REPORT
[2018-10-23] MEDS ORDERED: TESSALON PERLE100 MG PO (11:42)
[2018-10-23] MEDS ORDERED: PREDNISONE20 MG PO (11:42)
[2018-10-23] MEDS ORDERED: CIPRO500 MG PO (11:43)
--- NOTE | 2018-10-23 13:39 | NUR ---
I have reviewed this patient and I concur with the Shift Assessment completed by the Licensed Practical Nurse today this shift.
--- NOTE | 2018-10-23 14:25 | MORECARE ---
CASE MANAGEMENT DISCHARGE SUMMARY PATIENT: LANE ONEAL UNIT: [id number] ADM DATE: 10/19/18 AGE: 58 : 62 SEX: F ROOM/BED: D.1212 AUTHOR: EDWARD TESFAYE PHYSICIAN: REFERRING PHYSICIAN: LUCAS AMATO DO DATE OF SERVICE: 10/23/18 Discharge Plan Patient Name: LANE ONEAL Facility: [facility]:[place] : 1960 Planned Disposition: Home Anticipated Discharge Date: Discharge Date: Expected LOS: Initial Reviewer: [email or web address] Initial Review Date: 10/23/2018 Generated: 10/23/18 3:25 pm Coverage Notice Reviewer: [id number] Elysia Gonzalez Notice Issued Date-Time: 10/23/2018 9:00 Notice Type: IM Discharge Notice Notice Delivered To: Patient Relationship to Patient: Self Biomass Facilitator Name: Delivery Method: HAND - Hand Delivered Makenzie Days: Prior Verbal Notification: Recipient Understood Notice: Yes Recipient Signature: Yes Med Rec Note Co-signed by Attending: Coverage Notice Comment: Last DP export: 10/23/18 8:57 a Patient Name: LANE ONEAL Page 54798 at 1425 All edits/amendments must be made on the electronic document DICTATION DATE: 10/23/181424 ADVERTISING INSERTER: TAISHA 10/23/18 142 RPT#: [id number] DC DATE: STATUS: ADM IN [facility] [address] [place] [address] END OF REPORT
--- NOTE | 2018-10-23 14:35 | MORECARE ---
CASE MANAGEMENT DISCHARGE SUMMARY PATIENT: LANE ONEAL UNIT: [id number] ADM DATE: 10/19/18 AGE: 58 : 62 SEX: F ROOM/BED: D.1212 AUTHOR: EDWARD TESFAYE PHYSICIAN: REFERRING PHYSICIAN: LUCAS AMATO DO DATE OF SERVICE: 10/23/18 Discharge Plan Patient Name: LANE ONEAL Facility: [facility]:[place] : 1960 Planned Disposition: Home Anticipated Discharge Date: Discharge Date: Expected LOS: Initial Reviewer: [email or web address] Initial Review Date: 10/23/2018 Generated: 10/23/18 3:35 pm Coverage Notice Reviewer: [id number] Elysia Gonzalez Notice Issued Date-Time: 10/23/2018 9:00 Notice Type: IM Discharge Notice Notice Delivered To: Patient Relationship to Patient: Self Managed Care Provider Name: Delivery Method: HAND - Hand Delivered Makenzie Days: Prior Verbal Notification: Recipient Understood Notice: Yes Recipient Signature: Yes Med Rec Note Co-signed by Attending: Coverage Notice Comment: Last DP export: 10/23/18 1:25 p Patient Name: LANE ONEAL Page [phone] at 1435 All edits/amendments must be made on the electronic document DICTATION DATE: 10/23/181433 LEATHER GRADER: TAISHA 10/23/18 143 RPT#: [id number] DC DATE: STATUS: ADM IN [facility] [address] [place] [address] END OF REPORT
--- NOTE | 2018-10-23 15:17 | NUR ---
PT D/C PER [facility] AMB[facility]AT[facility] WITH ALL BELONGINGS. D/C IV WITH CATHETER TIP INTACT. D/C PAPERWORK SIGNED NO FURTHER QUESTIONS. VERBALIZED UNDERSTANDING.
== END 2018-10-23 14:50 | disposition home or self-care (01) | DRG 190 ==
LOC: D.M3 18:35
PROVIDERS: Internal Medicine Nephrology; ADMIT Family Medicine; ATTEND Family Medicine
DX: J44.1 Chronic obstructive pulmonary disease with (acute) exacerbation (principal); E43 Unspecified severe protein-calorie malnutrition; J98.11 Atelectasis; R00.0 Tachycardia, unspecified; K21.9 Gastro-esophageal reflux disease without esophagitis; F41.9 Anxiety disorder, unspecified; F32.9 Major depressive disorder, single episode, unspecified; J30.9 Allergic rhinitis, unspecified; Z72.0 Tobacco use; I10 Essential (primary) hypertension; Z68.21 Body mass index [BMI] 21.0-21.9, adult

== ENCOUNTER → 2018-11-30 08:15 | Outpatient (CLI) | payer MEDICARE, OTHER, MEDICAID ==
[2018-10-20 12:44] VITALS: BMI 21.9
[~2018-11-30 08:15] MED LIST changes: +CIPRO500 MG PO; +HYDROCODON-ACE1 EAC7 PO; +TESSALON PERLE100 MG PO
== END | disposition home or self-care (01) ==
LOC: D.RT 08:00
PROVIDERS: ATTEND Internal Medicine Pulmonary Disease
DX: J44.9 Chronic obstructive pulmonary disease, unspecified (principal)

== ENCOUNTER → 2019-01-12 16:55 | Outpatient (CLI) | payer MEDICARE, OTHER, MEDICAID ==
[2018-10-20 12:44] VITALS: BMI 21.9
[~2019-01-12 16:55] MED LIST changes: +NICODERM C1 PATCH .2 TRANSDERM; +OMNICEF300 MG PO; +Tessalon Perle PO; +ZITHROMAX250 MG PO
[2019-01-12 17:32] LABS: BASOPHILS 0.3 % (0-2); EOSINOPHILS 1.6 % (0-7); HEMATOCRIT 50.6 % (36.0-48.0); HEMOGLOBIN 16.3 g/dL (12-16); IMMATURE GRANULOCYTES 0.2 % (0-5); LYMPHOCYTES 38.3 % (15-50); MCH 31.4 pg (26.0-34.0); MCHC 32.2 g/dL (31.0-37.0); MCV 97.5 fL (80.0-100.0); MEAN PLATELET VOLUME 9.6 fL (7.4-10.4); MONOCYTES 11.7 % (2-11); NEUTROPHILS 47.9 % (40-80); RBC 5.19 10x6/uL (4.00-5.40); RDW 13.9 % (11.5-14.5); WBC 6.1 10x3/uL (4.8-10.8)
[2019-01-12 17:34] LABS: PLATELET COUNT 226 10x3/uL (130-400)
[2019-01-12 17:46] LABS: ALBUMIN 3.2 g/dL (3.4-5.0); ANION GAP 8.8 mmol/L (8-16); BILIRUBIN - TOTAL 0.74 mg/dL (0.2-1.3); CALCIUM 8.6 mg/dL (8.5-10.1); CARBON DIOXIDE 34.1 mmol/L (21.0-32.0); CREATININE - SERUM 1.4 mg/dL (0.6-1.3); POTASSIUM - SERUM 3.9 mmol/L (3.5-5.1); PROTEIN - SERUM 6.7 g/dL (6.4-8.2)
== END | disposition home or self-care (01) ==
LOC: D.LABREF 16:55
PROVIDERS: ATTEND Internal Medicine Gastroenterology
DX: Z83.71 Family history of colonic polyps (principal); R11.2 Nausea with vomiting, unspecified; J44.9 Chronic obstructive pulmonary disease, unspecified; F17.200 Nicotine dependence, unspecified, uncomplicated; R63.0 Anorexia; R53.83 Other fatigue

== ENCOUNTER → 2019-01-19 11:24 | Outpatient (CLI) | payer MEDICARE, OTHER, MEDICAID ==
[2018-10-20 12:44] VITALS: BMI 21.9
== END | disposition home or self-care (01) ==
LOC: D.NM 11:24
PROVIDERS: ATTEND Internal Medicine Gastroenterology
DX: R11.0 Nausea (principal); K21.9 Gastro-esophageal reflux disease without esophagitis; R10.13 Epigastric pain

== ENCOUNTER → 2019-01-23 10:26 | Outpatient (CLI) | payer MEDICARE, OTHER, MEDICAID ==
[2018-10-20 12:44] VITALS: BMI 21.9
== END | disposition home or self-care (01) ==
LOC: D.US 10:26
PROVIDERS: ATTEND Internal Medicine Gastroenterology
DX: R11.2 Nausea with vomiting, unspecified (principal); R10.30 Lower abdominal pain, unspecified; Z83.71 Family history of colonic polyps; J44.9 Chronic obstructive pulmonary disease, unspecified; R63.0 Anorexia; R53.83 Other fatigue; F17.200 Nicotine dependence, unspecified, uncomplicated

== ENCOUNTER 2019-01-28 21:36 | Inpatient (IN) | payer MEDICARE, OTHER, MEDICAID ==
[~2019-01-28] VITALS: Ht 157.5 cm; Wt 59.0 kg
[~2019-01-28 21:36] MED LIST changes: -NICODERM C1 PATCH .2 TRANSDERM; -OMNICEF300 MG PO; -Tessalon Perle PO; -ZITHROMAX250 MG PO
[2019-01-28 22:25] LABS: BASOPHILS 0 % (0-2); EOSINOPHILS 0.9 % (0-7); HEMATOCRIT 50.2 % (36.0-48.0); HEMOGLOBIN 15.8 g/dL (12-16); IMMATURE GRANULOCYTES 0.3 % (0-5); LYMPHOCYTES 34.1 % (15-50); MCH 31.3 pg (26.0-34.0); MCHC 31.5 g/dL (31.0-37.0); MCV 99.6 fL (80.0-100.0); MONOCYTES 8.5 % (2-11); NEUTROPHILS 56.2 % (40-80); PLATELET COUNT 202 10x3/uL (130-400); RBC 5.04 10x6/uL (4.00-5.40); RDW 13.8 % (11.5-14.5); WBC 9.1 10x3/uL (4.8-10.8)
[2019-01-28 22:34] LABS: ANION GAP 6.7 mmol/L (8-16); CALCIUM 8.4 mg/dL (8.5-10.1); CARBON DIOXIDE 35.1 mmol/L (21.0-32.0); CREATININE - SERUM 0.9 mg/dL (0.6-1.3); POTASSIUM - SERUM 4.8 mmol/L (3.5-5.1)
[2019-01-28 22:39] LABS: ALBUMIN 3.1 g/dL (3.4-5.0); BILIRUBIN - TOTAL 0.69 mg/dL (0.2-1.3); PROTEIN - SERUM 6.3 g/dL (6.4-8.2)
--- NOTE | 2019-01-28 23:37 | NUR ---
PROVIDED PT WITH SANDWICH TRAY AND DRINK
--- NOTE | 2019-01-28 23:37 | NUR ---
VERIFIED WITH LAB BLOOD CULTURES X2 DRAWN. SPOKE WITH [employer]
[2019-01-29 00:05] LABS: THYROID STIMULATING HORMONE 5.99 uIU/mL (0.36-3.74)
--- NOTE | 2019-01-29 00:15 | NUR ---
PT ARRIVED TO FLOOR VIA WHEELCHAIR. NO SIGNS OF DISTRESS, AOX4. VSS. O2 2L/NC. IV LEFT AC 20G INFUSING LEVAQUIN. PT STATES SHE HAS A SLIGHT HEADACHE STILL, 2/10 PAIN. PT REQUESTED AND HUMIDIFIER PLACED ON O2. PT SOB WITH EXERTION, OCCASIONAL COUGH, NON PRODUCTIVE. EXP WHEEZES HEARD IN UPPER LOBES, CRACKLES IN LOWER. DENIES ANY OTHER COMPLAINTS OR NEEDS. CL IN REACH, WILL CTM.
[2019-01-29 00:29] VITALS: BP 138/75; BMI 39.2
--- NOTE | 2019-01-29 02:00 | NUR ---
PT LYING IN BED SLEEPING WITHOUT DISTRESS, CL IN REACH. WILL CTM
--- NOTE | 2019-01-29 03:30 | NUR ---
RESP AT BEDSIDE ADMINISTERING BREATHING TREATMENT. NO DISTRESS, DENIES NEEDS. CL IN REACH, WILL CTM
[2019-01-29 04:00] VITALS: BP 131/82
--- NOTE | 2019-01-29 06:00 | NUR ---
PT SITTING UP IN BED WITHOUT DISTRESS, DENIES NEEDS AT THIS TIME. CL IN REACH, WILL CTM
[2019-01-29 08:48] VITALS: BP 125/72
--- NOTE | 2019-01-29 09:00 | NUR ---
ASSESSMENT PER FLOW SHEET. PT IS WITHOUT DISTRESS.MONITOR FOR NEEDS.CALL LIGHT IN REACH.
[2019-01-29 10:39] LABS: BASOPHILS 0 % (0-2); EOSINOPHILS 0 % (0-7); HEMATOCRIT 51.6 % (36.0-48.0); HEMOGLOBIN 16.5 g/dL (12-16); IMMATURE GRANULOCYTES 0.2 % (0-5); LYMPHOCYTES 7.5 % (15-50); MCH 31.2 pg (26.0-34.0); MEAN PLATELET VOLUME 9.2 fL (7.4-10.4); MONOCYTES 0.9 % (2-11); NEUTROPHILS 91.4 % (40-80); PLATELET COUNT 213 10x3/uL (130-400); RBC 5.29 10x6/uL (4.00-5.40); RDW 13.4 % (11.5-14.5)
[2019-01-29 10:40] LABS: MCV 97.5 fL (80.0-100.0); WBC 5.7 10x3/uL (4.8-10.8)
[2019-01-29 13:30] VITALS: BP 118/63
[2019-01-29 16:51] VITALS: BP 119/63
--- NOTE | 2019-01-29 19:35 | NUR ---
SITTING UP IN BED. ALERT AND ORIENTED X4. TALKATIVE WITH STAFF. REPORTS CHRONIC BACK AND RATES 8 ON PAIN SCALE. REQUESTS MORPHINE WITH NIGHT TIME MEDS. RESP IRREG, NONLABORED. NONPROD COUGH NOTED. O2 @ 1.5L/NC. TELEMETRY SHOWS SR WITH RATE OF 75. NO EDEMA NOTED. SALINE LOCK NOTED TO LT AC. AMBULATORY. NO DISTRESS. CL IN REACH.
--- NOTE | 2019-01-29 19:46 | NUR ---
HAS AMBULATED IN HALLS TODAY. SHE REMAINS WITHOUT CHANGE FROM INITIAL SHIFT ASSESSMENT.CONT PLAN OF CARE
[2019-01-29 20:00] VITALS: BP 117/65
--- NOTE | 2019-01-29 21:05 | NUR ---
MEDICATED WITH MORHPINE FOR C/O SEVERE BACK PAIN. CL IN REACH.
[2019-01-30] VITALS: BP 123/66
--- NOTE | 2019-01-30 01:09 | NUR ---
LYING IN BED TALKING ON CELL PHONE. NO DISTRESS. CL IN REACH.
[2019-01-30 04:00] VITALS: BP 124/70
--- NOTE | 2019-01-30 05:40 | NUR ---
MEDICATED WITH MORPHINE FOR C/O CHRONIC BACK PAIN RATING 9. CL IN REACH.
--- NOTE | 2019-01-30 06:10 | NUR ---
AMBULATING IN HALLWAY.
[2019-01-30 06:57] LABS: BASOPHILS 0 % (0-2); EOSINOPHILS 0 % (0-7); HEMATOCRIT 48.8 % (36.0-48.0); HEMOGLOBIN 15.1 g/dL (12-16); IMMATURE GRANULOCYTES 0.3 % (0-5); LYMPHOCYTES 6.9 % (15-50); MCH 30.3 pg (26.0-34.0); MCHC 30.9 g/dL (31.0-37.0); MEAN PLATELET VOLUME 9.8 fL (7.4-10.4); NEUTROPHILS 89.8 % (40-80); PLATELET COUNT 232 10x3/uL (130-400); RBC 4.98 10x6/uL (4.00-5.40); RDW 13.6 % (11.5-14.5)
[2019-01-30 07:11] LABS: ALBUMIN 3.1 g/dL (3.4-5.0); ANION GAP 7.5 mmol/L (8-16); BILIRUBIN - TOTAL 0.45 mg/dL (0.2-1.3); CALCIUM 8.4 mg/dL (8.5-10.1); CARBON DIOXIDE 32.2 mmol/L (21.0-32.0); MAGNESIUM - SERUM 2.1 mg/dL (1.8-2.4); PHOSPHOROUS 3.5 mg/dL (2.5-4.9); POTASSIUM - SERUM 4.7 mmol/L (3.5-5.1); PROTEIN - SERUM 5.9 g/dL (6.4-8.2)
[2019-01-30 08:34] VITALS: BP 124/71
--- NOTE | 2019-01-30 09:00 | NUR ---
ASSESSMENT PER FLOW SHEET. PT IS WITHOUT DISTRESS.MONITOR FOR NEEDS.
[2019-01-30 12:53] VITALS: BP 137/72
--- NOTE | 2019-01-30 14:13 | MORECARE ---
CASE MANAGEMENT DISCHARGE SUMMARY PATIENT: LANE ONEAL UNIT: [id number] ADM DATE: 01/28/19 AGE: 58 : 62 SEX: F ROOM/BED: D.2230 AUTHOR: EDWARD TESFAYE PHYSICIAN: REFERRING PHYSICIAN: MAN MAS DO DATE OF SERVICE: 01/30/19 Discharge Plan Patient Name: LANE ONEAL Facility: [facility]:[place] : 1960 Planned Disposition: Home Anticipated Discharge Date: 02/01/19 Discharge Date: Expected LOS: 4 Initial Reviewer: [email or web address] Initial Review Date: 01/29/2019 Generated: 01/30/19 3:12 pm Patient Name: LANE ONEAL Page [phone] at 1413 All edits/amendments must be made on the electronic document DICTATION DATE: 01/30/19 141 MD ALLERGY IMMUNOLOGY: TAISHA 01/30/19 141 RPT#: [id number] DC DATE: STATUS: ADM IN [facility] [address] [place] [address] END OF REPORT
[2019-01-30 14:18] VITALS: Ht 157.5 cm; Wt 59.0 kg
--- NOTE | 2019-01-30 14:24 | MORECARE ---
CASE MANAGEMENT DISCHARGE SUMMARY PATIENT: LANE ONEAL UNIT: [id number] ADM DATE: 01/28/19 AGE: 58 : 62 SEX: F ROOM/BED: D.2230 AUTHOR: EDWARD TESFAYE PHYSICIAN: REFERRING PHYSICIAN: MAN MAS DO DATE OF SERVICE: 01/30/19 Discharge Plan Patient Name: ALNE ONEAL Facility: [facility]:[place] : 1960 Planned Disposition: Home Anticipated Discharge Date: 02/01/19 Discharge Date: Expected LOS: 4 Initial Reviewer: [email or web address] Initial Review Date: 01/29/2019 Generated: 01/30/19 3:24 pm Comments DCP- Discharge Planning Updated by [email or web address]: Tiffany Chase on 01/30/19 1:[address] Patient uses [facility] for her DME needs. If she qualifies for portable she will use [facility]. LAKESHIA form presented, explained and signed by the patient for [facility]. Signed form placed on patient's chart and a signed form left with the patient. Tiffany Chase RN, [facility] DCP- Discharge Planning Updated by [email or web address]: Tiffany Chase on 01/30/19 1:[address] DC PLAN: Return home with her mother independently. ANTICIPATED DC NEEDS: Walk test to qualify for portable O2- Meals on wheels info given. CM met with patient to complete initial dc planning assessment. CM educated patient on the CM role and verbal consent given by patient to complete assessment. CM verified patient's address, phone number, and emergency contact phone numbers. Patient lives at home with her mother. She reports she is independent in her care at home. She has home O2 but no portable O2. Will order walk test when closer to dc to see if she qualifies for O2. At discharge patient plans to return home and feels this is a safe discharge. CM discussed availability of home health, rehab services, and medical equipment. Patient denied known discharge needs at this time. CM provided her information on Meals on Wheels at her request. Patient reports she will transport herself home at time of discharge. CM will continue to follow and will assist as needed with dc plans/needs. Tiffany Chase RN, [facility] DCPIA - Discharge Planning Initial Assessment Updated by [email or web address]: Tiffany Chase on 01/30/19 2:13 pm * Is the patient Alert and Oriented? Yes * How many steps to enter\exit or inside your home? One * PCP Dr. Karimi * Pharmacy [facility] [address] * Preadmission Environment Home with Family * ADLs Independent * Equipment Nebulizer * Other Equipment [employer] company is: [employer] * List name and contact numbers for known caregivers / representatives who currently or will assist patient after discharge: Nadia Lin - [facility] [phone] Coverage Notice Reviewer: [id number] - Tiffany Chase Notice Issued Date-Time: 01/30/2019 14:18 Notice Type: IM Discharge Notice Notice Delivered To: Patient Relationship to Patient: Exploitation Analyst Name: Delivery Method: HAND - Hand Delivered Makenzie Days: Prior Verbal Notification: Recipient Understood Notice: Recipient Signature: Med Rec Note Co-signed by Attending: Coverage Notice Comment: DC IMM delivered, explained, signed by the patient, and placed in the chart. Signed form also left with patient. Tiffany Chase RN , [facility] Last DP export: 01/30/19 1:13 Patient Name: LANE ONEAL Page [phone] at 1424 All edits/amendments must be made on the electronic document DICTATION DATE: 01/30/191422 CREATIVE SERVICES DESIGNER: TAISHA 01/30/191422 RPT#: [id number] DC DATE: STATUS: ADM IN [facility] [address] [place] [address] END OF REPORT
[2019-01-30 17:02] VITALS: BP 128/68
--- NOTE | 2019-01-30 18:35 | NUR ---
PT IS OFF UNIT AT PRESENT.SHE IS BEING PUSHED IN WHEELCHAIR.WATCH FOR PT TO RETURN TO UNIT.
--- NOTE | 2019-01-30 19:30 | NUR ---
AMBULATING IN ROOM. ALERT AND ORIENTED X4. NOT WEARING O2 AT THIS TIME. RESP IRREG. SOB WITH MIN EXERTION. NONPROD COUGH. REPORTS CHRONIC BACK PAIN. SALINE LOCK NOTED TO LT AC. NO DISTRESS. CL IN REACH. TELEMETRY SHOWS SR WITH RATE OF 88.
--- NOTE | 2019-01-30 21:20 | NUR ---
MEDICATED WITH MORPHINE FOR C/O CHRONIC BACK PAIN. CL IN REACH. O2 @ 2LNC.
[2019-01-31 01:18] VITALS: BP 133/64
--- NOTE | 2019-01-31 03:42 | NUR ---
SALINE LOCK PULLED OUT. IV RESTARTED IN RT AC WITH 22G X1 ATTEMPT. PT MIRELLA WELL.
[2019-01-31 05:43] VITALS: BP 121/78
[2019-01-31 05:53] LABS: BASOPHILS 0 % (0-2); EOSINOPHILS 0 % (0-7); HEMATOCRIT 47.7 % (36.0-48.0); HEMOGLOBIN 15.1 g/dL (12-16); IMMATURE GRANULOCYTES 0.3 % (0-5); MCH 30.9 pg (26.0-34.0); MCHC 31.7 g/dL (31.0-37.0); MCV 97.5 fL (80.0-100.0); MEAN PLATELET VOLUME 9.3 fL (7.4-10.4); MONOCYTES 5.5 % (2-11); NEUTROPHILS 88.2 % (40-80); PLATELET COUNT 218 10x3/uL (130-400); RBC 4.89 10x6/uL (4.00-5.40); RDW 13.7 % (11.5-14.5)
[2019-01-31 06:21] LABS: ANION GAP 8.8 mmol/L (8-16); BILIRUBIN - TOTAL 0.42 mg/dL (0.2-1.3); CALCIUM 8.4 mg/dL (8.5-10.1); POTASSIUM - SERUM 4.8 mmol/L (3.5-5.1); PROTEIN - SERUM 6.3 g/dL (6.4-8.2)
[2019-01-31 08:46] VITALS: BP 143/72
[2019-01-31 12:10] VITALS: BP 135/74
--- NOTE | 2019-01-31 15:00 | MORECARE ---
CASE MANAGEMENT DISCHARGE SUMMARY PATIENT: LANE ONEAL UNIT: [id number] ADM DATE: 01/28/19 AGE: 58 : 62 SEX: F ROOM/BED: D.2230 AUTHOR: MERA,DOC PHYSICIAN: REFERRING PHYSICIAN: MAN MAS DO DATE OF SERVICE: 01/31/19 Discharge Plan Patient Name: LANE ONEAL Facility: [facility]:[place] : 1960 Planned Disposition: Home Anticipated Discharge Date: 02/01/19 Discharge Date: Expected LOS: 4 Initial Reviewer: [email or web address] Initial Review Date: 01/29/2019 Generated: 01/31/19 4:00 pm Comments DCP- Discharge Planning Updated by [email or web address]: Deena Shon on 01/31/19 1:[address] WALK TEST ON ROOM AIR IS 98% AT REST AND 90% WITH EXERTION, SHE DOES NOT QUALIFY FOR PORTABLE OXYGEN AT THIS TIME. CM WILL CONTINUE TO FOLLOW AND ASSIST WITH DISCHARGE PLANNING/NEEDS. DCP- Discharge Planning Updated by [email or web address]: Tiffany Chase on 01/30/19 1:[address] Patient uses [facility] for her DME needs. If she qualifies for portable she will use [facility]. LAKESHIA form presented, explained and signed by the patient for [facility]. Signed form placed on patient's chart and a signed form left with the patient. Tiffany Chase RN, [facility] DCP- Discharge Planning Updated by [email or web address]: Tiffany Chase on 01/30/19 1:[address] DC PLAN: Return home with her mother independently. ANTICIPATED DC NEEDS: Walk test to qualify for portable O2- Meals on wheels info given. CM met with patient to complete initial dc planning assessment. CM educated patient on the CM role and verbal consent given by patient to complete assessment. CM verified patient's address, phone number, and emergency contact phone numbers. Patient lives at home with her mother. She reports she is independent in her care at home. She has home O2 but no portable O2. Will order walk test when closer to dc to see if she qualifies for O2. At discharge patient plans to return home and feels this is a safe discharge. CM discussed availability of home health, rehab services, and medical equipment. Patient denied known discharge needs at this time. CM provided her information on Meals on Wheels at her request. Patient reports she will transport herself home at time of discharge. CM will continue to follow and will assist as needed with dc plans/needs. Tiffany Chase RN, [facility] DCPIA - Discharge Planning Initial Assessment Updated by [email or web address]: Tiffany Chase on 01/30/19 2:13 pm * Is the patient Alert and Oriented? Yes * How many steps to enter\exit or inside your home? One * PCP Dr. Karimi * Pharmacy [facility] [address] * Preadmission Environment Home with Family * ADLs Independent * Equipment Nebulizer * Other Equipment [employer] company is: [employer] * List name and contact numbers for known caregivers / representatives who currently or will assist patient after discharge: Nadia Lin - [facility] [phone] Coverage Notice Reviewer: [id number] - Tiffany Chase Notice Issued Date-Time: 01/30/2019 14:18 Notice Type: IM Discharge Notice Notice Delivered To: Patient Relationship to Patient: Gold Layer Name: Delivery Method: HAND - Hand Delivered Makenzie Days: Prior Verbal Notification: Recipient Understood Notice: Recipient Signature: Med Rec Note Co-signed by Attending: Coverage Notice Comment: DC IMM delivered, explained, signed by the patient, and placed in the chart. Signed form also left with patient. Tiffany Chase RN , [facility] Last DP export: 01/30/19 1:24 Patient Name: LANE ONEAL Page [phone] at 1500 All edits/amendments must be made on the electronic document DICTATION DATE: 01/31/191458 FOLDING RULES PRINTING MACHINE OPERATOR: DM 01/31/191458 RPT#: [id number] DC DATE: STATUS: ADM IN [facility] [address] [place] [address] END OF REPORT
[2019-01-31 16:35] VITALS: BP 135/74
--- NOTE | 2019-01-31 19:23 | NUR ---
SITTING UP IN BED WITH TELEVISION ON, SHOWS NO S/S OF ANY ACUTE DISTRESS DOES NOTE TO BE CONCERNED WITH AMOUNT OF STEROIDS SHE IS GETTING. ABLE TO VOICE ALL NEEDS. DENIES PAIN. WILL NOTE ANY CHANGE.
[2019-01-31 20:00] VITALS: BP 153/85
--- NOTE | 2019-01-31 23:44 | NUR ---
AT EVENING MED PASS REQUESTED FOR TRAZADONE TO BE HELD TILL LATER THIS SHIFT. WHEN SHE ASKED FOR IT, SHE THEN WENT BACK AND SAID SHE WAS "SCARED TO TAKE IT" BUT THEN ASKED FOR SOME PAIN MEDS FOR HER HEAD ACHE. THIS NURSE OFFERED HER TYLENOL AND PT STATED SHE WOULD RATHER HAVE THE IV PAIN MEDS. I ATTEMPTED TO EDUCATE HER ON STARTING WITH LOWER MEDICATION FIRST AND SHE THEN SAID THAT HER PAIN WAS EVEN WORSE ON THE BACK OF HER NECK. THIS NURSE STATED SHE UNDERSTOOD AND OFFERED THE TRAZADONE AGAIN, PT CONTINUES TO REFUSE IT. WILL NOTE ANY CHANGE.
[2019-02-01] VITALS: BP 134/77
--- NOTE | 2019-02-01 01:30 | NUR ---
AFTER MORPHINE ADMINISTRATION, REQUESTED TO TAKE TRAZADONE. DOSE PULLED FROM PYXIS AND ADMINISTERED. AT THIS TIME, SHE IS RESTING QUIETLY WITH EYES CLOSED WITH NO S/S OF ANY ACUTE DISTRESS.
[2019-02-01 04:00] VITALS: BP 133/69
--- NOTE | 2019-02-01 04:40 | NUR ---
I have reviewed this patient and I concur with the Shift Assessment completed by the Licensed Practical Nurse today this shift.
[2019-02-01 06:50] LABS: BASOPHILS 0 % (0-2); EOSINOPHILS 0 % (0-7); HEMATOCRIT 47.5 % (36.0-48.0); HEMOGLOBIN 14.7 g/dL (12-16); IMMATURE GRANULOCYTES 0.4 % (0-5); LYMPHOCYTES 5.7 % (15-50); MCH 30.6 pg (26.0-34.0); MCHC 30.9 g/dL (31.0-37.0); MCV 98.8 fL (80.0-100.0); MEAN PLATELET VOLUME 9.5 fL (7.4-10.4); MONOCYTES 5.5 % (2-11); NEUTROPHILS 88.4 % (40-80); PLATELET COUNT 207 10x3/uL (130-400); RBC 4.81 10x6/uL (4.00-5.40); WBC 5.6 10x3/uL (4.8-10.8)
[2019-02-01 07:19] LABS: ANION GAP 7.5 mmol/L (8-16); BILIRUBIN - TOTAL 0.41 mg/dL (0.2-1.3); CALCIUM 8.7 mg/dL (8.5-10.1); CARBON DIOXIDE 31.5 mmol/L (21.0-32.0); PROTEIN - SERUM 6.4 g/dL (6.4-8.2)
[2019-02-01 08:24] VITALS: BP 143/75
--- NOTE | 2019-02-01 10:22 | NUR ---
PATIENT RECIEVED THIS AM FROM PREVIOUS SHIFT SITTING UP IN BED WITH RESPIRATIONS REGULAR AND NONLABORED. O2 2L NC AND BI-PAP AT HS. PATIENT IS ALERT AND ORIENTED WITH CHRONIC BACK PAIN REPORTED. MORPHINE GIVEN FOR PAIN. CL IN REACH
[2019-02-01 11:51] VITALS: BP 132/69
[2019-02-01 16:29] VITALS: BP 148/77
--- NOTE | 2019-02-01 19:00 | NUR ---
BEDSIDE REPORT RECEIVED AND CARE OF PT ASSUMED. PT SITTING UP IN BED WATCHING TV. IV TO RIGHT AC SALINE LOCKED. O2 IN USE VIA NC AT 2L. TELEMETRY IN PLACE AND READING 88 SR AT THIS ASSESSMENT.
--- NOTE | 2019-02-01 20:35 | NUR ---
PT SITTING UP IN BED EATING FOOD BROUGHT IN BY FAMILY MEMBER.
[2019-02-01 21:27] VITALS: BP 148/82
[2019-02-02 00:42] VITALS: BP 149/73
[2019-02-02 05:26] VITALS: BP 138/79
[2019-02-02 05:29] LABS: BASOPHILS 0 % (0-2); EOSINOPHILS 0 % (0-7); HEMATOCRIT 46.2 % (36.0-48.0); HEMOGLOBIN 14.3 g/dL (12-16); IMMATURE GRANULOCYTES 0.5 % (0-5); LYMPHOCYTES 6.6 % (15-50); MCH 30.4 pg (26.0-34.0); MCV 98.1 fL (80.0-100.0); MEAN PLATELET VOLUME 9.7 fL (7.4-10.4); MONOCYTES 5.4 % (2-11); NEUTROPHILS 87.5 % (40-80); PLATELET COUNT 205 10x3/uL (130-400); RBC 4.71 10x6/uL (4.00-5.40); RDW 13.9 % (11.5-14.5)
[2019-02-02 05:44] LABS: WBC 4.1 10x3/uL (4.8-10.8)
[2019-02-02 06:02] LABS: ALBUMIN 2.7 g/dL (3.4-5.0); BILIRUBIN - TOTAL 0.52 mg/dL (0.2-1.3); CALCIUM 8.4 mg/dL (8.5-10.1); CARBON DIOXIDE 34.9 mmol/L (21.0-32.0); POTASSIUM - SERUM 4.9 mmol/L (3.5-5.1); PROTEIN - SERUM 5.6 g/dL (6.4-8.2)
[2019-02-02 06:19] LABS: CREATININE - SERUM 0.9 mg/dL (0.6-1.3)
[2019-02-02 08:34] VITALS: BP 140/74
--- NOTE | 2019-02-02 09:00 | NUR ---
ALERT AND ORIENTED X4 ON ROOM AIR WITH NO DYSPNEA NOTED. BREATH SOUNDS DIMINISHED X4 POSTERIOR WITH NON-PRODUCTIVE COUGH. TELEMETRY INTACT. INSPIRATORY WHEEZE NOTED TO RUQ POSTERIOR. ENCOURAGED TO USE CALL LILGHT FOR ASSIST.IV TO RT. A/C S/L WITH NO S/S OF INFECTION NOTED.
[2019-02-02] MEDS ORDERED: DIFLUCAN100 MG PO (11:12)
[2019-02-02] MEDS ORDERED: OMNICEF300 MG PO (11:12)
[2019-02-02] MEDS ORDERED: NICODERM C1 PATCH .2 TRANSDERM (11:12)
[2019-02-02] MEDS ORDERED: BROVANA15 MCG/2 M INH (11:14)
[2019-02-02] MEDS ORDERED: ZITHROMAX250 MG PO (11:14)
[2019-02-02] MEDS ORDERED: PULMICORT0.5 MG/21 UPD (11:14)
[2019-02-02] MEDS ORDERED: Tessalon Perle PO (11:15)
[2019-02-02] MEDS ORDERED: PREDNISONE10 MG PO (11:15)
--- NOTE | 2019-02-02 13:00 | MORECARE ---
CASE MANAGEMENT DISCHARGE SUMMARY PATIENT: LANE ONEAL UNIT: [id number] ADM DATE: 01/28/19 AGE: 58 : 62 SEX: F ROOM/BED: D.2230 AUTHOR: EDWARD TESFAYE PHYSICIAN: REFERRING PHYSICIAN: MAN MAS DO DATE OF SERVICE: 02/02/19 Discharge Plan Patient Name: LANE ONEAL Facility: [facility]:[place] : 1960 Planned Disposition: Home Anticipated Discharge Date: 02/01/19 Discharge Date: Expected LOS: 4 Initial Reviewer: [email or web address] Initial Review Date: 01/29/2019 Generated: 02/02/19 1:59 pm Comments DCP- Discharge Planning Updated by [id number]: Deena Menendez on 02/02/19 11:[address] Patient Name: LANE ONEAL Encounter No: [id number] : 1960 Primary Insurance: [facility] MEDICARE [employer] Anticipated DC Date: 02-01-2019 Planned Disposition: Home External Planned Provider: : DCP follow-up note: Patient in agreement with discharge plan. She is going to stay with her mom on [address]. I notified Jim with [employer] and she states to give patient her cell phone and she will transfer her oxygen to her mother's house, which I did. Patient to call Jim with [employer] when she leaves here. No changes to plan. Case management will follow and assist as needed. Deena Menendez DCP- Discharge Planning Updated by [email or web address]: Deena Menendez on 01/31/19 1:[address] WALK TEST ON ROOM AIR IS 98% AT REST AND 90% WITH EXERTION, SHE DOES NOT QUALIFY FOR PORTABLE OXYGEN AT THIS TIME. CM WILL CONTINUE TO FOLLOW AND ASSIST WITH DISCHARGE PLANNING/NEEDS. DCP- Discharge Planning Updated by [email or web address]: Tiffany Chase on 01/30/19 1:[address] Patient uses [facility] for her DME needs. If she qualifies for portable she will use [facility]. LAKESHIA form presented, explained and signed by the patient for [facility]. Signed form placed on patient's chart and a signed form left with the patient. Tiffany Chase RN, [facility] DCP- Discharge Planning Updated by [email or web address]: Tiffany Chase on 01/30/19 1:[address] DC PLAN: Return home with her mother independently. ANTICIPATED DC NEEDS: Walk test to qualify for portable O2- Meals on wheels info given. CM met with patient to complete initial dc planning assessment. CM educated patient on the CM role and verbal consent given by patient to complete assessment. CM verified patient's address, phone number, and emergency contact phone numbers. Patient lives at home with her mother. She reports she is independent in her care at home. She has home O2 but no portable O2. Will order walk test when closer to dc to see if she qualifies for O2. At discharge patient plans to return home and feels this is a safe discharge. CM discussed availability of home health, rehab services, and medical equipment. Patient denied known discharge needs at this time. CM provided her information on Meals on Wheels at her request. Patient reports she will transport herself home at time of discharge. CM will continue to follow and will assist as needed with dc plans/needs. Tiffany Chase RN, [facility] DCPIA - Discharge Planning Initial Assessment Updated by [email or web address]: Tiffany Chase on 01/30/19 2:13 pm * Is the patient Alert and Oriented? Yes * How many steps to enter\exit or inside your home? One * PCP Dr. Karimi * Pharmacy [facility] [address] * Preadmission Environment Home with Family * ADLs Independent * Equipment Nebulizer * Other Equipment [employer] company is: [employer] * List name and contact numbers for known caregivers / representatives who currently or will assist patient after discharge: Nadia Lin - mother - [phone] Coverage Notice Reviewer: [id number] - Tiffany Chase Notice Issued Date-Time: 01/30/2019 14:18 Notice Type: IM Discharge Notice Notice Delivered To: Patient Relationship to Patient: Cloth Checker Name: Delivery Method: HAND - Hand Delivered Makenzie Days: Prior Verbal Notification: Recipient Understood Notice: Recipient Signature: Med Rec Note Co-signed by Attending: Coverage Notice Comment: DC IMM delivered, explained, signed by the patient, and placed in the chart. Signed form also left with patient. Tiffany Chase RN , [facility] Reviewer: [id number] Elysia Menendez Notice Issued Date-Time: 02/02/2019 12:41 Notice Type: IM Discharge Notice Notice Delivered To: Patient Relationship to Patient: Self Cloth Checker Name: Delivery Method: HAND - Hand Delivered Makenzie Days: Prior Verbal Notification: Recipient Understood Notice: Yes Recipient Signature: Yes Med Rec Note Co-signed by Attending: Coverage Notice Comment: IMM explained, signed, given, copy placed in MR Last DP export: 01/31/19 2:00 Patient Name: LANE ONEAL Page [id number] at 1300 All edits/amendments must be made on the electronic document DICTATION DATE: 02/02/19 125 BROWN STOCK WASHER: TAISHA 02/02/19 125 RPT#: [id number] DC DATE: STATUS: ADM IN [facility] [address] [place] [address] END OF REPORT
--- NOTE | 2019-02-02 13:58 | NUR ---
IV DISCONTINUED WITH PATIENT VERBALIZING UNDERSTANDING OF DISCHARGE INSTRUCTIONS. STABLE AT TIME OF DEPARTURE.
--- NOTE | 2019-02-03 11:32 | MORECARE ---
CASE MANAGEMENT DISCHARGE SUMMARY PATIENT: LANE ONEAL UNIT: [id number] ADM DATE: 01/28/19 AGE: 58 : 62 SEX: F ROOM/BED: D.2230 AUTHOR: MERADOC PHYSICIAN: REFERRING PHYSICIAN: MAN MAS DO DATE OF SERVICE: 02/03/19 Discharge Plan Patient Name: LANE ONEAL Facility: [facility]:[place] : 1960 Planned Disposition: Home Anticipated Discharge Date: 02/01/19 Discharge Date: 02/02/2019 Expected LOS: 4 Initial Reviewer: [email or web address] Initial Review Date: 01/29/2019 Generated: 02/03/19 12:32 pm Comments DCP- Discharge Planning Updated by [id number]: Deena Menendez on 02/02/19 11:[address] Patient Name: LANE ONEAL Encounter No: [id number] : 1960 Primary Insurance: [facility] [employer]IC[employer] SOLUTIONS Anticipated DC Date: 02-01-2019 Planned Disposition: Home External Planned Provider: : DCP follow-up note: Patient in agreement with discharge plan. She is going to stay with her mom on [place]. I notified Jim with [employer] and she states to give patient her cell phone and she will transfer her oxygen to her mother's house, which I did. Patient to call Jim with [employer] when she leaves here. No changes to plan. Case management will follow and assist as needed. Deena Menendez DCP- Discharge Planning Updated by [id number]: Deena Menendez on 01/31/19 1:[address] WALK TEST ON ROOM AIR IS 98% AT REST AND 90% WITH EXERTION, SHE DOES NOT QUALIFY FOR PORTABLE OXYGEN AT THIS TIME. CM WILL CONTINUE TO FOLLOW AND ASSIST WITH DISCHARGE PLANNING/NEEDS. DCP- Discharge Planning Updated by [id number]: Tiffany Chase on 01/30/19 1:[address] Patient uses [facility] for her DME needs. If she qualifies for portable she will use [facility]. LAKESHIA form presented, explained and signed by the patient for [facility]. Signed form placed on patient's chart and a signed form left with the patient. Tiffany Chase RN, CCM DCP- Discharge Planning Updated by [email or web address]: Tiffany Chase on 01/30/19 1:[address] DC PLAN: Return home with her mother independently. ANTICIPATED DC NEEDS: Walk test to qualify for portable O2- Meals on wheels info given. CM met with patient to complete initial dc planning assessment. CM educated patient on the CM role and verbal consent given by patient to complete assessment. CM verified patient's address, phone number, and emergency contact phone numbers. Patient lives at home with her mother. She reports she is independent in her care at home. She has home O2 but no portable O2. Will order walk test when closer to dc to see if she qualifies for O2. At discharge patient plans to return home and feels this is a safe discharge. CM discussed availability of home health, rehab services, and medical equipment. Patient denied known discharge needs at this time. CM provided her information on Meals on Wheels at her request. Patient reports she will transport herself home at time of discharge. CM will continue to follow and will assist as needed with dc plans/needs. Tiffany Chase RN, NAS DCPIA - Discharge Planning Initial Assessment Updated by [id number]: Tiffany Chase on 01/30/19 2:13 pm * Is the patient Alert and Oriented? Yes * How many steps to enter\exit or inside your home? One * PCP Dr. Karimi * [facility]acy [facility] [address] * Preadmission Environment Home with Family * ADLs Independent * Equipment Nebulizer * Other Equipment [employer] D[employer] company is: [email or web address] * List name and contact numbers for known caregivers / representatives who currently or will assist patient after discharge: Nadia Lin - mother - [phone] Coverage Notice Reviewer: [id number] - Tiffany Chase Notice Issued Date-Time: 01/30/2019 14:18 Notice Type: IM Discharge Notice Notice Delivered To: Patient Relationship to Patient: School Crossing Guard Supervisor Name: Delivery Method: HAND - Hand Delivered Makenzie Days: Prior Verbal Notification: Recipient Understood Notice: Recipient Signature: Med Rec Note Co-signed by Attending: Coverage Notice Comment: DC IMM delivered, explained, signed by the patient, and placed in the chart. Signed form also left with patient. Tiffany Chase RN , CCM Reviewer: [id number] Elysia Menendez Notice Issued Date-Time: 02/02/2019 12:41 Notice Type: IM Discharge Notice Notice Delivered To: Patient Relationship to Patient: Self School Crossing Guard Supervisor Name: Delivery Method: HAND - Hand Delivered Makenzie Days: Prior Verbal Notification: Recipient Understood Notice: Yes Recipient Signature: Yes Med Rec Note Co-signed by Attending: Coverage Notice Comment: IMM explained, signed, given, copy placed in MR Last DP export: 02/02/19 12:00 p Patient Name: LANE ONEAL Page [phone] at 1132 All edits/amendments must be made on the electronic document DICTATION DATE: 02/03/19 1132 DIAL MARKER: TAISHA 02/03/19 1132 RPT#: [id number] DC DATE:02/02/19 STATUS: DIS IN [facility] [address] [place] [address] END OF REPORT
== END 2019-02-02 13:59 | disposition home or self-care (01) | DRG 190 ==
LOC: D.ER 21:36 → D.MS 23:36
PROVIDERS: Emergency Medicine; Internal Medicine Pulmonary Disease; ADMIT Family Medicine; ATTEND Family Medicine
DX: J44.0 Chronic obstructive pulmonary disease with (acute) lower respiratory infection (principal); J96.01 Acute respiratory failure with hypoxia; J96.02 Acute respiratory failure with hypercapnia; F17.203 Nicotine dependence unspecified, with withdrawal; J44.1 Chronic obstructive pulmonary disease with (acute) exacerbation; J20.9 Acute bronchitis, unspecified; I48.91 Unspecified atrial fibrillation; K21.9 Gastro-esophageal reflux disease without esophagitis; I50.9 Heart failure, unspecified; K57.90 Diverticulosis of intestine, part unspecified, without perforation or abscess without bleeding; M19.90 Unspecified osteoarthritis, unspecified site; M54.9 Dorsalgia, unspecified; F43.10 Post-traumatic stress disorder, unspecified; F41.8 Other specified anxiety disorders; I11.0 Hypertensive heart disease with heart failure; G47.33 Obstructive sleep apnea (adult) (pediatric); D75.1 Secondary polycythemia

== ENCOUNTER 2019-04-22 23:00 | Inpatient (IN) | payer MEDICARE, OTHER, MEDICAID ==
[~2019-04-22] VITALS: Ht 157.5 cm; Wt 58.5 kg
[~2019-04-22 23:00] MED LIST changes: +NICODERM C1 PATCH .2 TRANSDERM; +OMNICEF300 MG PO; +Tessalon Perle PO; +ZITHROMAX250 MG PO
[2019-04-22 23:56] LABS: HEMATOCRIT 52.2 % (36.0-48.0); HEMOGLOBIN 16.4 g/dL (12-16); LYMPHOCYTES 27.9 % (15-50); MCH 32.9 pg (26.0-34.0); MCHC 31.4 g/dL (31.0-37.0); MCV 104.8 fL (80.0-100.0); NEUTROPHILS 60.4 % (40-80); PLATELET COUNT 216 10x3/uL (130-400); RBC 4.98 10x6/uL (4.00-5.40); RDW 13.9 % (11.5-14.5)
[2019-04-23] VITALS (12 sets, daily range): BP systolic 98–134; BP diastolic 62–86; Ht 157.5 cm; Wt 58.5 kg
[2019-04-23 00:13] LABS: CALC OSMOLALITY 278 mosm/kg (275-300); CALCIUM 8.8 mg/dL (8.5-10.1); CARBON DIOXIDE 36.7 mmol/L (21.0-32.0); CHLORIDE - SERUM 102 mmol/L (98-107); CREATININE - SERUM 0.9 mg/dL (0.6-1.3); POTASSIUM - SERUM 4.7 mmol/L (3.5-5.1); SODIUM 140 mmol/L (136-145); UREA NITROGEN 9 mg/dL (7-18); eGFR NON AFRICAN AMERICAN 68 mL/min (90-120)
[2019-04-23 00:15] LABS: GLUCOSE 113 mg/dL (74-106)
[2019-04-23 00:17] LABS: ALBUMIN 3.3 g/dL (3.4-5.0); ALKALINE PHOSPHATASE 92 U/L (46-116); ALT (SGPT) 57 U/L (10-68); BILIRUBIN - TOTAL 0.66 mg/dL (0.2-1.3); MAGNESIUM - SERUM 1.6 mg/dL (1.8-2.4); PRO BNP 129 pg/mL (0-125); PROTEIN - SERUM 6.6 g/dL (6.4-8.2)
[2019-04-23 00:19] LABS: TROPONIN-I < 0.017 ng/mL (0.000-0.060)
--- NOTE | 2019-04-23 00:30 | NUR ---
PT PROVIDED PILLOW FOR COMFORT. PT REPORTS CONTINUED ORTHOPNEA AND IS UNABLE TO LAY BACK, BUT PT DOES REPORT RELIEF AFTER IV SOLU MEDROL.
--- NOTE | 2019-04-23 02:10 | NUR ---
RECIEVED PT TO ROOM 2308 VIA STRETCHER ACCOMPANIED BY ER NURSE X 1. PT ABLE TO MOVE SELF OVER TO ICU BED, ON 6L NC. ICU MONITORS ESTABLISHED AND ALARMS ON, SR ON CM, ALL OTHER VSS. ICE WATER PROVIDED PER REQUEST, BED LOW, CALL LIGHT IN REACH.
[2019-04-23] MEDS ORDERED: PAXIL20 MG PO (02:25)
[2019-04-23] MEDS ORDERED: OMEPRAZOLE40 MG PO (02:25)
[2019-04-23] MEDS ORDERED: GABAPENTIN300 MG PO (02:25)
--- NOTE | 2019-04-23 03:40 | NUR ---
ASSISTED PT TO BSC, VOID X 1 NOTED, PT ABLE TO PROVIDE OWN AKIKO-CARE. BACK TO BED WITH MINIMAL ASSIST, DENIES ANY OTHER NEEDS AT THIS TIME.
--- NOTE | 2019-04-23 05:29 | NUR ---
NO VISITORS PRESENT AT THIS TIME, PT RESTING IN BED WITH BIPAP IN PLACE-50% FIO2, VSS, CONT TO MONITOR.
--- NOTE | 2019-04-23 07:00 | NUR ---
PT REPORT RECEIVED FROM GLASS DESIGNER NURSE. NO ACUTE SIGNS OF DISTRESS NOTED. SHIFT ASSESSMENT COMPLETED. WILL CONTINUE TO MONITOR
--- NOTE | 2019-04-23 09:00 | NUR ---
PT RESTING IN BED COMFORTABLY. EATING BREAKFAST. NO ACUTE SIGNS OF DISTRESS NOTED. WILL CONTINUE TO MONITOR
--- NOTE | 2019-04-23 10:00 | NUR ---
DR MAS IN ROOM ROUNDING ON THE PT. UPDATE GIVEN. WILL CONTINUE TO MONITOR
--- NOTE | 2019-04-23 10:52 | NUR ---
TRANSFER ORDERS RECEIVED. BED ASSIGNMENT GIVEN. PT GOING TO ROOM 2205.
--- NOTE | 2019-04-23 11:21 | NUR ---
CALLED REPORT TO [facility] ON MED SURG. PREPARING TO TRANSFER PT OVER.
[2019-04-23] MEDS ORDERED: NEURONTIN600 MG PO (12:25)
--- NOTE | 2019-04-23 13:19 | NUR ---
RESTING IN BED. REQUESTED AND GIVEN FAN. REQUESTED AND GIVEN O2 HUMIDIFIER. DENIES FURTHER NEEDS. WILL CONTINUE TO MONITOR.
--- NOTE | 2019-04-23 18:15 | NUR ---
RESTING IN BED. DENIES NEEDS. CALL FERMIN AND PERSONAL ITEMS IN REACH.
--- NOTE | 2019-04-23 22:22 | NUR ---
ALERT AND ORIENTED SITTING UP IN BED. SLIGHT SOB NOTED. NO OTHER ACUTE DISTRESS AT THIS TIME. IV L AC, SL, NO REDNESS OR SWELLING. NC @ 3L/MIN. PATIENT ENCOURAGED TO CALL WITH ANY NEEDS. BED RAILS X2. CALL LIGHT AND BEDSIDE TABLE WITHIN REACH.
[2019-04-24 00:56] VITALS: BP 122/66
[2019-04-24 05:46] VITALS: BP 138/81
[2019-04-24 06:40] LABS: BASOPHILS 0 % (0-2); EOSINOPHILS 0 % (0-7); HEMOGLOBIN 15.4 g/dL (12-16); LYMPHOCYTES 9.4 % (15-50); MCH 32.8 pg (26.0-34.0); MCHC 31.4 g/dL (31.0-37.0); MCV 104.5 fL (80.0-100.0); MEAN PLATELET VOLUME 9.8 fL (7.4-10.4); MONOCYTES 5.1 % (2-11); NEUTROPHILS 85.5 % (40-80); PLATELET COUNT 202 10x3/uL (130-400); RBC 4.69 10x6/uL (4.00-5.40); RDW 13.8 % (11.5-14.5); WBC 6.3 10x3/uL (4.8-10.8)
[2019-04-24 07:06] LABS: ALBUMIN 3.2 g/dL (3.4-5.0); ALKALINE PHOSPHATASE 131 U/L (46-116); BILIRUBIN - TOTAL 1.05 mg/dL (0.2-1.3); CALC OSMOLALITY 269 mosm/kg (275-300); CALCIUM 8.5 mg/dL (8.5-10.1); CARBON DIOXIDE 35.7 mmol/L (21.0-32.0); CHLORIDE - SERUM 96 mmol/L (98-107); CREATININE - SERUM 0.8 mg/dL (0.6-1.3); GLUCOSE 149 mg/dL (74-106); MAGNESIUM - SERUM 1.6 mg/dL (1.8-2.4); POTASSIUM - SERUM 5.1 mmol/L (3.5-5.1); SODIUM 134 mmol/L (136-145); UREA NITROGEN 9 mg/dL (7-18); eGFR NON AFRICAN AMERICAN 78 mL/min (90-120)
[2019-04-24 07:08] LABS: ALT (SGPT) 679 U/L (10-68)
--- NOTE | 2019-04-24 07:55 | NUR ---
ALERT AND ORIENTED. LUNGS WITH BILATERAL EXPIRATORY WHEEZES. O2 IN PLACE AT 2L NC HUMIDIFIED. HEART SOUNDS S1 AND S2 HEARD IN ALL ADAN. BOWEL SOUNDS ACTIVE X 4. SKIN INTACT WITHOUT REDNESS. IV TO LEFT AC PATENT WITHOUT REDNESS. DENIES NEEDS. BED LOW. CALL FERMIN AND PERSONAL ITEMS IN REACH. WILL CONTINUE TO MONITOR.
[2019-04-24 08:30] VITALS: BP 133/78
[2019-04-24 09:15] LABS: INR 0.94 (0.85-1.17); PROTIME 12.5 SECONDS (11.6-15.0)
[2019-04-24 09:39] LABS: AMYLASE - SERUM 46 U/L (25-115); LIPASE 353 U/L (73-393)
--- NOTE | 2019-04-24 10:06 | NUR ---
IV OUT TO LEFT AC. RESITED TO RIGHT HAND AFTER TWO ATTEMPTS WITH 22 GAUGE.
--- NOTE | 2019-04-24 13:47 | NUR ---
RESTING IN BED. NPO FOR ULTRASOUND. DENIES NEEDS. WILL CONTINUE TO MONITOR.
[2019-04-24 15:06] VITALS: BP 131/69
[2019-04-24 16:45] VITALS: BP 132/78
--- NOTE | 2019-04-24 19:15 | NUR ---
UP IN BED WITH TELEVISION ON, ABLE TO VOICE ALL NEEDS. DENIES PAIN OR DISTRESS AT THIS TIME. IV SALINE LOC TO RIGHT HAND AT THIS TIME. PATENT TO FLUSH. WILL NOTE ANY CHANGE.
[2019-04-24 20:00] VITALS: BP 134/89
--- NOTE | 2019-04-24 20:22 | NUR ---
COMPLAINS OF PAIN, MORPHINE GIVEN PER ORDERS. WILL NOTE ANY CHANGE.
--- NOTE | 2019-04-24 21:00 | NUR ---
AT 2015 REQUESTED PAIN MEDS, GRANTED. EFFECTIVE AT THIS TIME. WILL NOTE ANY CHANGE.
[2019-04-25] VITALS: BP 130/84
[2019-04-25 01:25] LABS: UDS - AMPHET NEGATIVE QUAL (NEGATIVE); UDS - BARB NEGATIVE QUAL (NEGATIVE); UDS - BENZO NEGATIVE QUAL (NEGATIVE); UDS - COCAINE NEGATIVE QUAL (NEGATIVE); UDS - OPIATE POSITIVE QUAL (NEGATIVE); UDS - PCP NEGATIVE QUAL (NEGATIVE); UDS - THC NEGATIVE QUAL (NEGATIVE)
[2019-04-25 04:00] VITALS: BP 129/77
--- NOTE | 2019-04-25 05:08 | NUR ---
I have reviewed this patient and I concur with the Shift Assessment completed by the Licensed Practical Nurse today this shift.
[2019-04-25 05:17] LABS: BASOPHILS 0 % (0-2); EOSINOPHILS 0 % (0-7); HEMATOCRIT 48.8 % (36.0-48.0); HEMOGLOBIN 15.5 g/dL (12-16); LYMPHOCYTES 12.9 % (15-50); MCH 32.5 pg (26.0-34.0); MCHC 31.8 g/dL (31.0-37.0); MEAN PLATELET VOLUME 9.8 fL (7.4-10.4); MONOCYTES 5.8 % (2-11); NEUTROPHILS 81.3 % (40-80); PLATELET COUNT 204 10x3/uL (130-400); RBC 4.77 10x6/uL (4.00-5.40); RDW 13.5 % (11.5-14.5)
[2019-04-25 05:25] LABS: CALC OSMOLALITY 264 mosm/kg (275-300); CALCIUM 8.4 mg/dL (8.5-10.1); CARBON DIOXIDE 35.2 mmol/L (21.0-32.0); CHLORIDE - SERUM 96 mmol/L (98-107); CHOL - HDL RATIO 3.2 ratio (2.3-4.1); CHOLESTEROL, TOTAL 183 mg/dL (0-200); CREATININE - SERUM 0.8 mg/dL (0.6-1.3); GLUCOSE 125 mg/dL (74-106); HDL CHOLESTEROL 57 mg/dL (32-96); LDL CHOLESTEROL 109 mg/dL (0-100); LDL-HDL RATIO 1.9 ratio (1.5-3.5); MAGNESIUM - SERUM 1.6 mg/dL (1.8-2.4); SODIUM 132 mmol/L (136-145); TRIGLYCERIDE 87 mg/dL (30-200); UREA NITROGEN 11 mg/dL (7-18); eGFR NON AFRICAN AMERICAN 78 mL/min (90-120)
[2019-04-25 05:26] LABS: MCV 102.3 fL (80.0-100.0); WBC 3.6 10x3/uL (4.8-10.8)
[2019-04-25 05:29] LABS: AMYLASE - SERUM 23 U/L (25-115); LIPASE 71 U/L (73-393); POTASSIUM - SERUM 4.2 mmol/L (3.5-5.1)
[2019-04-25 07:12] LABS: HEPATITIS C ANTIBODY <0.1 S/CO RAT (0.0-0.9)
[2019-04-25 08:48] VITALS: BP 135/82
[2019-04-25 09:19] LABS: BILIRUBIN - DIRECT 0.14 mg/dL (0.00-0.30); BILIRUBIN - INDIRECT 0.37 mg/dL (0.00-1.00); BILIRUBIN - TOTAL 0.51 mg/dL (0.2-1.3); PROTEIN - SERUM 6.1 g/dL (6.4-8.2)
--- NOTE | 2019-04-25 10:48 | NUR ---
NUTRITION F/U PT REPORTS ONLY MILK AND JUICE AT BREAKFAST. STATES HER APPETITE IS IMPROVING A LITTLE. PT AGREEABLE TO ORDERING ENSURE WITH SOME MEALS. WILL CONTINUE TO PROVIDE DIET, MONITOR PO INTAKE. RD FOLLOWING
--- NOTE | 2019-04-25 13:35 | NUR ---
CK WITH LAB HEP PANEL IS A SEND OUT WAS DRAWN YESTERDAY
[2019-04-25 16:40] VITALS: BP 117/65
--- NOTE | 2019-04-25 18:35 | NUR ---
UP WALKING HALLS TODAY, DRESSING CHANGED TODAY BY JENNIFER US TO MONITOR
[2019-04-25 20:00] VITALS: BP 130/78
--- NOTE | 2019-04-25 20:00 | NUR ---
ALERT RESTING QUITELY IN BED, RESP UNLABORED O2 IN USE, DENIES PAIN OR NEEDS AT THIS TIME, SEE SHIFT ASSESSMENT, CALL LIGHT IN REACH
[2019-04-26] VITALS: BP 127/75
[2019-04-26 07:34] LABS: BASOPHILS 0 % (0-2); EOSINOPHILS 0 % (0-7); HEMATOCRIT 50.6 % (36.0-48.0); HEMOGLOBIN 16.3 g/dL (12-16); LYMPHOCYTES 12.4 % (15-50); MCH 33.2 pg (26.0-34.0); MCHC 32.2 g/dL (31.0-37.0); MCV 103.1 fL (80.0-100.0); MEAN PLATELET VOLUME 9.6 fL (7.4-10.4); NEUTROPHILS 80.6 % (40-80); PLATELET COUNT 184 10x3/uL (130-400); RBC 4.91 10x6/uL (4.00-5.40); RDW 13.6 % (11.5-14.5); WBC 4.6 10x3/uL (4.8-10.8)
[2019-04-26 07:47] LABS: ALBUMIN 2.9 g/dL (3.4-5.0); ALKALINE PHOSPHATASE 112 U/L (46-116); BILIRUBIN - TOTAL 0.53 mg/dL (0.2-1.3); CALCIUM 8.5 mg/dL (8.5-10.1); CARBON DIOXIDE 35.3 mmol/L (21.0-32.0); CHLORIDE - SERUM 98 mmol/L (98-107); CREATININE - SERUM 0.8 mg/dL (0.6-1.3); GLUCOSE 118 mg/dL (74-106); MAGNESIUM - SERUM 1.9 mg/dL (1.8-2.4); POTASSIUM - SERUM 4.1 mmol/L (3.5-5.1); PROTEIN - SERUM 5.9 g/dL (6.4-8.2); SODIUM 138 mmol/L (136-145); eGFR NON AFRICAN AMERICAN 78 mL/min (90-120)
[2019-04-26 07:52] LABS: ALT (SGPT) 487 U/L (10-68); CALC OSMOLALITY 278 mosm/kg (275-300); UREA NITROGEN 18 mg/dL (7-18)
--- NOTE | 2019-04-26 07:59 | MORECARE ---
CASE MANAGEMENT DISCHARGE SUMMARY PATIENT: LANE ONEAL UNIT: [id number] ADM DATE: 04/23/19 AGE: 58 : 62 SEX: F ROOM/BED: D.2205 AUTHOR: EDWARD TESFAYE PHYSICIAN: REFERRING PHYSICIAN: CALEB VACA MD DATE OF SERVICE: 04/26/19 Discharge Plan Patient Name: LANE ONEAL Facility: [facility]:[place] : 1960 Planned Disposition: Home or Self Care Anticipated Discharge Date: Discharge Date: Expected LOS: Initial Reviewer: [id number] Initial Review Date: 04/26/2019 Generated: 04/26/19 8:58 am DCPIA - Discharge Planning Initial Assessment Updated by [email or web address]: Mary Mauricio on 04/26/19 7:55 am * Is the patient Alert and Oriented? Yes * How many steps to enter\exit or inside your home? 1/0 * PCP terra * Pharmacy [facility] * Preadmission Environment Home with Family * ADLs Independent * Equipment Oxygen * Other Equipment [employer] * List name and contact numbers for known caregivers / representatives who currently or will assist patient after discharge: Nadia Lin * Verbal permission to speak to the caregivers and representatives has been obtained from the patient. Yes * Community resources currently utilized Other * Please name any agencies selected above. [facility] * Additional services required to return to the preadmission environment? Yes * Can the patient safely return to the preadmission environment? Yes * Has this patient been hospitalized within the prior 30 days at any hospital? No Patient Name: LANE ONEAL Page [id number] at 0759 All edits/amendments must be made on the electronic document DICTATION DATE: 04/26/19757 TRANSIT MAN: TAISHA 04/26/19757 RPT#: [id number] DC DATE: STATUS: ADM IN [facility] [address] [place] [address] END OF REPORT
--- NOTE | 2019-04-26 08:12 | MORECARE ---
CASE MANAGEMENT DISCHARGE SUMMARY PATIENT: LANE ONEAL UNIT: [id number] ADM DATE: 04/23/19 AGE: 58 : 62 SEX: F ROOM/BED: D.2207 AUTHOR: MERA,DOC PHYSICIAN: REFERRING PHYSICIAN: CALEB VACA MD DATE OF SERVICE: 04/26/19 Discharge Plan Patient Name: LANE ONEAL Facility: [facility]:[place] : 1960 Planned Disposition: Home or Self Care Anticipated Discharge Date: Discharge Date: Expected LOS: Initial Reviewer: [email or web address] Initial Review Date: 04/26/2019 Generated: 04/26/19 9:12 am Comments DCP- Discharge Planning Updated by [id number]: aMry Mauricio on 04/26/19 7:[address] CM spoke with patient about needs for discharge. Pt uses [facility] at home and uses [facility]. Patient states she could benefit from a portable o2. LAKESHIA was discussed, and signed. Patient received a copy, and a copy was placed on the chart. DCP- Discharge Planning Updated by [id number]: Mary Mauricio on 04/26/19 6:[address] Patient Name: LANE ONEAL Admission Status: ER Accout number: [id number] Admission Date: 04-23-2019 : 1960 Admission Diagnosis: Attending: CALEB VACA Current LOS: 3 Anticipated DC Date: Planned Disposition: Home or Self Care Primary Insurance: [facility] MEDICARE SOLUTIONS Discharge Planning Comments: CM met with patient to complete initial dc planning assessment. CM educated patient on the CM role and verbal consent given by patient to complete assessment. Patient lives at home with Nadia Lin (mother). At discharge patient plans to return home and feels that she could benefit from portable O2. States she has a trilogy, and uses [facility]. CM discussed availability of home health, rehab services, and medical equipment. Patient denied known discharge needs at this time. CM will continue to follow and will assist as needed with dc plans/needs. Glass Production Machine Operator: Mary Mauricio DCPIA - Discharge Planning Initial Assessment Updated by [email or web address]: Mary Mauricio on 04/26/19 7:55 am * Is the patient Alert and Oriented? Yes * How many steps to enter\exit or inside your home? 1/0 * PCP terra * Pharmacy [facility] * Preadmission Environment Home with Family * ADLs Independent * Equipment Oxygen * Other Equipment [employer] * List name and contact numbers for known caregivers / representatives who currently or will assist patient after discharge: Nadia Lin * Verbal permission to speak to the caregivers and representatives has been obtained from the patient. Yes * Community resources currently utilized Other * Please name any agencies selected above. [facility] * Additional services required to return to the preadmission environment? Yes * Can the patient safely return to the preadmission environment? Yes * Has this patient been hospitalized within the prior 30 days at any hospital? No Coverage Notice Reviewer: [id number] Elysia Roy Notice Issued Date-Time: 04/26/2019 7:50 Notice Type: Patient Choice Letter Notice Delivered To: Patient Relationship to Patient: Business Consult Name: Delivery Method: HAND - Hand Delivered Makenzie Days: Prior Verbal Notification: Recipient Understood Notice: Yes Recipient Signature: Yes Med Rec Note Co-signed by Attending: Coverage Notice Comment: Patient is using [facility] Reviewer: [id number] Elysia Mauricio Notice Issued Date-Time: 04/26/2019 7:50 Notice Type: Patient Choice Letter Notice Delivered To: Patient Relationship to Patient: Business Consult Name: Delivery Method: HAND - Hand Delivered Makenzie Days: Prior Verbal Notification: Recipient Understood Notice: Yes Recipient Signature: Yes Med Rec Note Co-signed by Attending: Coverage Notice Comment: Patient chooses [facility] for trilogy equipment Last DP export: 04/26/19 6:59 a Patient Name: LANE ONEAL Page [id number] at 0812 All edits/amendments must be made on the electronic document DICTATION DATE: 04/26/19811 EKG MANAGER: TAISHA 04/26/19811 RPT#: [id number] DC DATE: STATUS: ADM IN [facility] [address] [facility] [place] [address] END OF REPORT
[2019-04-26 08:49] VITALS: BP 131/73
[2019-04-26] MEDS ORDERED: OMNICEF300 MG PO (12:16)
[2019-04-26] MEDS ORDERED: TESSALON PERLE100 MG PO (12:17)
[2019-04-26] MEDS ORDERED: MUCINEX DM ER1 EAC1 PO (12:17)
[2019-04-26] MEDS ORDERED: PREDNISONE10 MG PO (12:18)
[2019-04-26 12:45] VITALS: BP 103/71
--- NOTE | 2019-04-26 12:53 | MORECARE ---
CASE MANAGEMENT DISCHARGE SUMMARY PATIENT: LANE ONEAL UNIT: [id number] ADM DATE: 04/23/19 AGE: 58 : 62 SEX: F ROOM/BED: D.2204 AUTHOR: MERA,DOC PHYSICIAN: REFERRING PHYSICIAN: CALEB VACA MD DATE OF SERVICE: 04/26/19 Discharge Plan Patient Name: LANE ONEAL Facility: [facility]:[place] : 1960 Planned Disposition: Home or Self Care Anticipated Discharge Date: Discharge Date: Expected LOS: Initial Reviewer: [email or web address] Initial Review Date: 04/26/2019 Generated: 04/26/19 1:52 pm DCP- Discharge Planning Updated by [id number]: Mary Mauricio on 04/26/19 7:[address] CM spoke with patient about needs for discharge. Pt uses [facility] at home and uses [facility]. Patient states she could benefit from a portable o2. LAKESHIA was discussed, and signed. Patient received a copy, and a copy was placed on the chart. DCP- Discharge Planning Updated by [email or web address]: Mary Mauricio on 04/26/19 6:[address] Patient Name: LANE ONEAL Admission Status: ER Accout number: [id number] Admission Date: 04-23-2019 : 1960 Admission Diagnosis: Attending: CALEB VACA Current LOS: 3 Anticipated DC Date: Planned Disposition: Home or Self Care Primary Insurance: [facility] MEDICARE SOLUTIONS Discharge Planning Comments: CM met with patient to complete initial dc planning assessment. CM educated patient on the CM role and verbal consent given by patient to complete assessment. Patient lives at home with Nadia Lin (mother). At discharge patient plans to return home and feels that she could benefit from portable O2. States she has a trilogy, and uses [facility]. CM discussed availability of home health, rehab services, and medical equipment. Patient denied known discharge needs at this time. CM will continue to follow and will assist as needed with dc plans/needs. Loader: Mary Mauricio DCPIA - Discharge Planning Initial Assessment Updated by [id number]: Mary Mauricio on 04/26/19 7:55 am * Is the patient Alert and Oriented? Yes * How many steps to enter\exit or inside your home? 1/0 * PCP terra * [facility] * Preadmission Environment Home with Family * ADLs Independent * Equipment Oxygen * Other Equipment [facility] * List name and contact numbers for known caregivers / representatives who currently or will assist patient after discharge: Nadia Lin * Verbal permission to speak to the caregivers and representatives has been obtained from the patient. Yes * Community resources currently utilized Other * Please name any agencies selected above. [facility] * Additional services required to return to the preadmission environment? Yes * Can the patient safely return to the preadmission environment? Yes * Has this patient been hospitalized within the prior 30 days at any hospital? No External Providers External Provider: Marline Next Contact Date: Service Request Date: Service Type: Resolution: Reviewer: Comments: Coverage Notice Reviewer: [id number] Elysia Mauricio Notice Issued Date-Time: 04/26/2019 7:50 Notice Type: Patient Choice Letter Notice Delivered To: Patient Relationship to Patient: Movie Theater Manager Name: Delivery Method: HAND - Hand Delivered Makenzie Days: Prior Verbal Notification: Recipient Understood Notice: Yes Recipient Signature: Yes Med Rec Note Co-signed by Attending: Coverage Notice Comment: Patient chooses [employer] for trilogy equipment Last DP export: 04/26/19 7:12 a Patient Name: LANE ONEAL Page [phone] at 1253 All edits/amendments must be made on the electronic document DICTATION DATE: 04/26/19 1252 FINANCIAL SERVICES SALES REPRESENTATIVE: TAISHA 04/26/19 1252 RPT#: [id number] DC DATE: STATUS: ADM IN [facility] [address] [place] [address] END OF REPORT
--- NOTE | 2019-04-26 13:16 | MORECARE ---
CASE MANAGEMENT DISCHARGE SUMMARY PATIENT: LANE ONEAL UNIT: [id number] ADM DATE: 04/23/19 AGE: 58 : 62 SEX: F ROOM/BED: D.2205 AUTHOR: MERA,DOC PHYSICIAN: REFERRING PHYSICIAN: CALEB VACA MD DATE OF SERVICE: 04/26/19 Discharge Plan Patient Name: LANE ONEAL Facility: [facility]:[place] : 1960 Planned Disposition: Home or Self Care Anticipated Discharge Date: Discharge Date: Expected LOS: Initial Reviewer: [email or web address] Initial Review Date: 04/26/2019 Generated: 04/26/19 2:15 pm Comments DCP- Discharge Planning Updated by [id number]: Palak White on 04/26/19 12:[address] IMM SERVED AND EXPLAINED, COPY GIVEN PATIENT DID NOT WANT HOME HEALTH, FEELS SAFE DISCHARGING HOME WILL AWAIT FOR WALK TEST BY RESP DCP- Discharge Planning Updated by [id number]: Mary Mauricio on 04/26/19 7:[address] CM spoke with patient about needs for discharge. Pt uses [facility] at home and uses [facility]. Patient states she could benefit from a portable o2. LAKESHIA was discussed, and signed. Patient received a copy, and a copy was placed on the chart. DCP- Discharge Planning Updated by [id number]: Mary Mauricio on 04/26/19 6:[address] Patient Name: LANE ONEAL Admission Status: ER Accout number: [id number] Admission Date: 04-23-2019 : 1960 Admission Diagnosis: Attending: CALEB VACA Current LOS: 3 Anticipated DC Date: Planned Disposition: Home or Self Care Primary Insurance: [facility] MEDICARE SOLUTIONS Discharge Planning Comments: CM met with patient to complete initial dc planning assessment. CM educated patient on the CM role and verbal consent given by patient to complete assessment. Patient lives at home with Nadia Lin (mother). At discharge patient plans to return home and feels that she could benefit from portable O2. States she has a trilogy, and uses [facility]. CM discussed availability of home health, rehab services, and medical equipment. Patient denied known discharge needs at this time. CM will continue to follow and will assist as needed with dc plans/needs. Patient Care Coordinator: Mary Mauricio DCPIA - Discharge Planning Initial Assessment Updated by [email or web address]: Mary Mauricio on 04/26/19 7:55 am * Is the patient Alert and Oriented? Yes * How many steps to enter\exit or inside your home? 1/0 * PCP ellison * Pharmacy [facility] * Preadmission Environment Home with Family * ADLs Independent * Equipment Oxygen * Other Equipment [employer] * List name and contact numbers for known caregivers / representatives who currently or will assist patient after discharge: Nadia Lin * Verbal permission to speak to the caregivers and representatives has been obtained from the patient. Yes * Community resources currently utilized Other * Please name any agencies selected above. [facility] * Additional services required to return to the preadmission environment? Yes * Can the patient safely return to the preadmission environment? Yes * Has this patient been hospitalized within the prior 30 days at any hospital? No Coverage Notice Reviewer: [id number] - Mary Mauricio Notice Issued Date-Time: 04/26/2019 7:50 Notice Type: Patient Choice Letter Notice Delivered To: Patient Relationship to Patient: Aligner Typewriter Name: Delivery Method: HAND - Hand Delivered Makenzie Days: Prior Verbal Notification: Recipient Understood Notice: Yes Recipient Signature: Yes Med Rec Note Co-signed by Attending: Coverage Notice Comment: Patient chooses [facility] for trilogy equipment Reviewer: [id number] Elysia White Notice Issued Date-Time: 04/26/2019 13:00 Notice Type: IM Discharge Notice Notice Delivered To: Patient Relationship to Patient: Aligner Typewriter Name: Delivery Method: HAND - Hand Delivered Makenzie Days: Prior Verbal Notification: Recipient Understood Notice: Yes Recipient Signature: Yes Med Rec Note Co-signed by Attending: Coverage Notice Comment: Last DP export: 04/26/19 11:53 a Patient Name: LANE ONEAL Page [phone] at 1316 All edits/amendments must be made on the electronic document DICTATION DATE: 04/26/19 1315 SUPPLIER ENGINEER: TAISHA 04/26/19 1315 RPT#: [id number] DC DATE: STATUS: ADM IN [facility] [address] [place] [address] END OF REPORT
--- NOTE | 2019-04-26 14:18 | MORECARE ---
CASE MANAGEMENT DISCHARGE SUMMARY PATIENT: LANE ONEAL UNIT: [id number] ADM DATE: 04/23/19 AGE: 58 : 62 SEX: F ROOM/BED: D.2205 AUTHOR: MERA,DOC PHYSICIAN: REFERRING PHYSICIAN: CALEB VACA MD DATE OF SERVICE: 04/26/19 Discharge Plan Patient Name: LANE ONEAL Facility: [facility]:[place] : 1960 Planned Disposition: Home or Self Care Anticipated Discharge Date: Discharge Date: Expected LOS: Initial Reviewer: [email or web address] Initial Review Date: 04/26/2019 Generated: 04/26/19 3:18 pm Comments DCP- Discharge Planning Updated by [email or web address]: Palak White on 04/26/19 1:[address] PATIENT WAS 90% ON ROOM AIR AND WHEN AMBULATING HER POX INCREASED TO 93% WILL NOT QUALIFY FOR PORTABLE O2 PATIENT WILL BE DISCHARGED HOME TODAY DID NOT WANT HOME HEALTH CM TO FOLLOW AND ASSIST WITH DC PLANNING DCP- Discharge Planning Updated by [id number]: Palak White on 04/26/19 12:[address] IMM SERVED AND EXPLAINED, COPY GIVEN PATIENT DID NOT WANT HOME HEALTH, FEELS SAFE DISCHARGING HOME WILL AWAIT FOR WALK TEST BY RESP DCP- Discharge Planning Updated by [email or web address]: Mary Mauricio on 04/26/19 7:[address] CM spoke with patient about needs for discharge. Pt uses trilogy at home and uses [facility]. Patient states she could benefit from a portable o2. LAKESHIA was discussed, and signed. Patient received a copy, and a copy was placed on the chart. DCP- Discharge Planning Updated by [id number]: Mary Mauricio on 04/26/19 6:[address] Patient Name: LANE ONEAL Admission Status: ER Accout number: [id number] Admission Date: 04-23-2019 : 1960 Admission Diagnosis: Attending: CALEB VACA Current LOS: 3 Anticipated DC Date: Planned Disposition: Home or Self Care Primary Insurance: [facility] MEDICARE SOLUTIONS Discharge Planning Comments: CM met with patient to complete initial dc planning assessment. CM educated patient on the CM role and verbal consent given by patient to complete assessment. Patient lives at home with Nadia Lin (mother). At discharge patient plans to return home and feels that she could benefit from portable O2. States she has a trilogy, and uses [facility]. CM discussed availability of home health, rehab services, and medical equipment. Patient denied known discharge needs at this time. CM will continue to follow and will assist as needed with dc plans/needs. Home Agent: Mary Mauricio DCPIA - Discharge Planning Initial Assessment Updated by [email or web address]: Mary Mauricio on 04/26/19 7:55 am * Is the patient Alert and Oriented? Yes * How many steps to enter\exit or inside your home? 10 * PCP terra * Pharmacy [facility] * Preadmission Environment Home with Family * ADLs Independent * Equipment Oxygen * Other Equipment Trilogy * List name and contact numbers for known caregivers / representatives who currently or will assist patient after discharge: Nadia Lin * Verbal permission to speak to the caregivers and representatives has been obtained from the patient. Yes * Community resources currently utilized Other * Please name any agencies selected above. [facility] * Additional services required to return to the preadmission environment? Yes * Can the patient safely return to the preadmission environment? Yes * Has this patient been hospitalized within the prior 30 days at any hospital? No Coverage Notice Reviewer: [id number] - Mary Mauricio Notice Issued Date-Time: 04/26/2019 7:50 Notice Type: Patient Choice Letter Notice Delivered To: Patient Relationship to Patient: Spear Fisher Name: Delivery Method: HAND - Hand Delivered Makenzie Days: Prior Verbal Notification: Recipient Understood Notice: Yes Recipient Signature: Yes Med Rec Note Co-signed by Attending: Coverage Notice Comment: Patient chooses [facility] for trilogy equipment Reviewer: [id number] - Palak White Notice Issued Date-Time: 04/26/2019 13:00 Notice Type: IM Discharge Notice Notice Delivered To: Patient Relationship to Patient: Spear Fisher Name: Delivery Method: HAND - Hand Delivered Makenzie Days: Prior Verbal Notification: Recipient Understood Notice: Yes Recipient Signature: Yes Med Rec Note Co-signed by Attending: Coverage Notice Comment: Last DP export: 04/26/19 12:16 p Patient Name: LANE ONEAL Page 08464 at 1418 All edits/amendments must be made on the electronic document DICTATION DATE: 04/26/191417 FILTER TIP CATCHER: TAISHA 04/26/191417 RPT#: [id number] DC DATE: STATUS: ADM IN [facility] [address] [place] [address] END OF REPORT
[2019-04-27 07:14] LABS: ANA REFLEX - DIRECT Negative (Negative)
--- NOTE | 2019-04-27 18:19 | MORECARE ---
CASE MANAGEMENT DISCHARGE SUMMARY PATIENT: LANE ONEAL UNIT: [id number] ADM DATE: 04/23/19 AGE: 58 : 62 SEX: F ROOM/BED: D.2205 AUTHOR: MERA,DOC PHYSICIAN: REFERRING PHYSICIAN: CALEB VACA MD DATE OF SERVICE: 04/27/19 Discharge Plan Patient Name: LANE ONEAL Facility: [facility]:[place] : 1960 Planned Disposition: Home or Self Care Anticipated Discharge Date: Discharge Date: 04/26/2019 Expected LOS: Initial Reviewer: [email or web address] Initial Review Date: 04/26/2019 Generated: 04/27/19 7:18 pm DCP- Discharge Planning Updated by [email or web address]: Palak White on 04/26/19 1:[address] PATIENT WAS 90% ON ROOM AIR AND WHEN AMBULATING HER POX INCREASED TO 93% WILL NOT QUALIFY FOR PORTABLE O2 PATIENT WILL BE DISCHARGED HOME TODAY DID NOT WANT HOME HEALTH CM TO FOLLOW AND ASSIST WITH DC PLANNING DCP- Discharge Planning Updated by [email or web address]: Palak White on 04/26/19 12:[address] IMM SERVED AND EXPLAINED, COPY GIVEN PATIENT DID NOT WANT HOME HEALTH, FEELS SAFE DISCHARGING HOME WILL AWAIT FOR WALK TEST BY RESP DCP- Discharge Planning Updated by [email or web address]: Mary Mauricio on 04/26/19 7:[address] CM spoke with patient about needs for discharge. Pt uses trilogy at home and uses [facility]. Patient states she could benefit from a portable o2. LAKESHIA was discussed, and signed. Patient received a copy, and a copy was placed on the chart. DCP- Discharge Planning Updated by [email or web address]: Mary Mauricio on 04/26/19 6:[address] Patient Name: LANE ONEAL Admission Status: ER Accout number: [id number] Admission Date: 04-23-2019 : 1960 Admission Diagnosis: Attending: CALEB VACA Current LOS: 3 Anticipated DC Date: Planned Disposition: Home or Self Care Primary Insurance: [facility] MEDICARE SOLUTIONS Discharge Planning Comments: CM met with patient to complete initial dc planning assessment. CM educated patient on the CM role and verbal consent given by patient to complete assessment. Patient lives at home with Nadia Lin (mother). At discharge patient plans to return home and feels that she could benefit from portable O2. States she has a trilogy, and uses [facility]. CM discussed availability of home health, rehab services, and medical equipment. Patient denied known discharge needs at this time. CM will continue to follow and will assist as needed with dc plans/needs. Logistic Specialist: Mary Mauricio DCPIA - Discharge Planning Initial Assessment Updated by [id number]: Mary Mauricio on 04/26/19 7:55 am * Is the patient Alert and Oriented? Yes * How many steps to enter\exit or inside your home? 1/0 * PCP terra * Pharmacy [facility] * Preadmission Environment Home with Family * ADLs Independent * Equipment Oxygen * Other Equipment Trilogy * List name and contact numbers for known caregivers / representatives who currently or will assist patient after discharge: Nadia iLn * Verbal permission to speak to the caregivers and representatives has been obtained from the patient. Yes * Community resources currently utilized Other * Please name any agencies selected above. [facility] * Additional services required to return to the preadmission environment? Yes * Can the patient safely return to the preadmission environment? Yes * Has this patient been hospitalized within the prior 30 days at any hospital? No Coverage Notice Reviewer: [id number] - Mary Mauricio Notice Issued Date-Time: 04/26/2019 7:50 Notice Type: Patient Choice Letter Notice Delivered To: Patient Relationship to Patient: Director Biology Name: Delivery Method: HAND - Hand Delivered Makenzie Days: Prior Verbal Notification: Recipient Understood Notice: Yes Recipient Signature: Yes Med Rec Note Co-signed by Attending: Coverage Notice Comment: Patient chooses [facility] for trilogy equipment Reviewer: [id number] - Palak White Notice Issued Date-Time: 04/26/2019 13:00 Notice Type: IM Discharge Notice Notice Delivered To: Patient Relationship to Patient: Director Biology Name: Delivery Method: HAND - Hand Delivered Makenzie Days: Prior Verbal Notification: Recipient Understood Notice: Yes Recipient Signature: Yes Med Rec Note Co-signed by Attending: Coverage Notice Comment: Last DP export: 04/26/19 1:18 p Patient Name: LANE ONEAL Page 22952 at 1819 All edits/amendments must be made on the electronic document DICTATION DATE: 04/27/191817 MEDICAL RECORD SPECIALIST: TAISHA 04/27/191817 RPT#: [id number] DC DATE:04/26/19 STATUS: DIS IN [facility] [address] [place] [address] END OF REPORT
[2019-04-29 18:07] LABS: MITOCHONDRIAL ANTIBODY <20.0 Units (0.0-20.0); SMOOTH MUSCLE ABS (ACTIN) 4 Units (0-19)
== END 2019-04-26 15:56 | disposition home or self-care (01) | DRG 189 ==
LOC: D.ER 23:00 → D.MS 04-23 00:38 → OBSVTIME 04-23 00:38 → D.ICU 04-23 00:40 → D.MS 04-23 00:40 → D.ICU 04-23 00:41 → D.MS 04-23 11:38
PROVIDERS: Family Medicine; Internal Medicine Gastroenterology; ADMIT Internal Medicine Nephrology; ATTEND Internal Medicine Nephrology
DX: J96.01 Acute respiratory failure with hypoxia (principal); J44.1 Chronic obstructive pulmonary disease with (acute) exacerbation; J96.02 Acute respiratory failure with hypercapnia; I10 Essential (primary) hypertension; M19.90 Unspecified osteoarthritis, unspecified site; J20.9 Acute bronchitis, unspecified; G47.33 Obstructive sleep apnea (adult) (pediatric); K21.9 Gastro-esophageal reflux disease without esophagitis; F41.9 Anxiety disorder, unspecified; D75.1 Secondary polycythemia

== ENCOUNTER 2019-06-25 17:34 | Emergency (ER) | payer MEDICARE, MEDICAID ==
[~2019-06-25] VITALS: Ht 157.5 cm; Wt 55.5 kg
[~2019-06-25 17:34] MED LIST changes: +ALBUTEROL SULF8.5 GM INH; +GABAPENTIN300 MG PO; +LEVOFLOXACIN500 MG PO; +MUCINEX DM ER1 EAC1 PO; +NEURONTIN600 MG PO; +SYMBICORT 16010.2 GM INH
[2019-06-25 17:56] VITALS: Ht 157.5 cm; Wt 55.5 kg
[2019-06-25 18:28] LABS: HEMATOCRIT 43.1 % (36.0-48.0); HEMOGLOBIN 13.3 g/dL (12-16); LYMPHOCYTES 36.7 % (15-50); MCH 30.2 pg (26.0-34.0); MCHC 30.9 g/dL (31.0-37.0); MEAN PLATELET VOLUME 9.1 fL (7.4-10.4); PLATELET COUNT 137 10x3/uL (130-400); RDW 11.8 % (11.5-14.5); WBC 3.7 10x3/uL (4.8-10.8)
[2019-06-25 18:47] LABS: CALC OSMOLALITY 264 mosm/kg (275-300); CALCIUM 8.6 mg/dL (8.5-10.1); CARBON DIOXIDE 37.6 mmol/L (21.0-32.0); CHLORIDE - SERUM 95 mmol/L (98-107); CREATININE - SERUM 0.6 mg/dL (0.6-1.3); GLUCOSE 95 mg/dL (74-106); POTASSIUM - SERUM 3.8 mmol/L (3.5-5.1); SODIUM 134 mmol/L (136-145); UREA NITROGEN 4 mg/dL (7-18); eGFR NON AFRICAN AMERICAN > 90 mL/min (90-120)
[2019-06-25 18:53] LABS: ALBUMIN 2.8 g/dL (3.4-5.0); ALKALINE PHOSPHATASE 71 U/L (30-120); ALT (SGPT) 18 U/L (10-68); BILIRUBIN - TOTAL 0.92 mg/dL (0.2-1.3); PROTEIN - SERUM 5.8 g/dL (6.4-8.2)
[2019-06-25 19:20] LABS: AMYLASE - SERUM 34 U/L (25-115); LIPASE 49 U/L (73-393); TROPONIN-I < 0.017 ng/mL (0.000-0.060)
[2019-06-25 20:04] LABS: BILIRUBIN NEGATIVE (NEGATIVE); GLUCOSE NEGATIVE (NEGATIVE); KETONE NEGATIVE (NEGATIVE); NITRITE NEGATIVE (NEGATIVE); SPECIFIC GRAVITY 1.015 (1.005-1.020); UROBILINOGEN NORMAL (NORMAL)
[2019-06-25 20:39] VITALS: BP 120/63
== END 2019-06-25 20:39 | disposition home or self-care (01) ==
LOC: D.ER 17:34
PROVIDERS: Family Medicine
DX: R11.2 Nausea with vomiting, unspecified (principal); R19.7 Diarrhea, unspecified; I50.9 Heart failure, unspecified; I48.91 Unspecified atrial fibrillation; J44.9 Chronic obstructive pulmonary disease, unspecified; K21.9 Gastro-esophageal reflux disease without esophagitis

== ENCOUNTER 2019-07-05 19:36 | Inpatient (IN) | payer MEDICARE, MEDICAID ==
[~2019-07-05] VITALS: Ht 157.5 cm; Wt 55.3 kg
[2019-07-05 19:56] LABS: BASOPHILS 0.2 % (0-2); EOSINOPHILS 0.7 % (0-7); HEMATOCRIT 43.4 % (36.0-48.0); HEMOGLOBIN 12.7 g/dL (12-16); IMMATURE GRANULOCYTES 0.4 % (0-5); LYMPHOCYTES 25.1 % (15-50); MCH 30.2 pg (26.0-34.0); MCHC 29.3 g/dL (31.0-37.0); MCV 103.1 fL (80.0-100.0); MEAN PLATELET VOLUME 9.3 fL (7.4-10.4); MONOCYTES 12.9 % (2-11); NEUTROPHILS 60.7 % (40-80); PLATELET COUNT 129 10x3/uL (130-400); RBC 4.21 10x6/uL (4.00-5.40); RDW 12.3 % (11.5-14.5); WBC 5.6 10x3/uL (4.8-10.8)
[2019-07-05 20:00] VITALS: BP 116/59
[2019-07-05 20:03] LABS: CALC OSMOLALITY 267 mosm/kg (275-300); CALCIUM 8.6 mg/dL (8.5-10.1); CARBON DIOXIDE 36.6 mmol/L (21.0-32.0); CHLORIDE - SERUM 97 mmol/L (98-107); CREATININE - SERUM 0.6 mg/dL (0.6-1.3); GLUCOSE 81 mg/dL (74-106); POTASSIUM - SERUM 4.2 mmol/L (3.5-5.1); SODIUM 136 mmol/L (136-145); UREA NITROGEN 5 mg/dL (7-18); eGFR NON AFRICAN AMERICAN > 90 mL/min (90-120)
[2019-07-05 20:06] LABS: APTT 27.3 SECONDS (22.8-39.4); INR 0.95 (0.85-1.17); PROTIME 12.7 SECONDS (11.6-15.0)
[2019-07-05 20:07] LABS: D-DIMER-QUANTITATIVE 0.29 ug/mLFEU (0.20-0.54)
[2019-07-05 20:21] LABS: ALBUMIN 2.5 g/dL (3.4-5.0); ALKALINE PHOSPHATASE 73 U/L (30-120); ALT (SGPT) 19 U/L (10-68); BILIRUBIN - TOTAL 0.83 mg/dL (0.2-1.3); CKMB 0.4 U/L (0.0-3.6); CREATINE KINASE 27 UL (21-215); PRO BNP 400 pg/mL (0-125); PROTEIN - SERUM 5.4 g/dL (6.4-8.2); TROPONIN-I < 0.017 ng/mL (0.000-0.060)
--- NOTE | 2019-07-05 21:55 | NUR ---
[id number]
--- NOTE | 2019-07-05 22:00 | NUR ---
ADMITTED TO ROOM ALERT AND ORIENTIATED C/O SEVERE HEADACHE REQUESTING IV PAIN MEDS, INSTRUCTED WILL GIVE SOON ORDER IS RECIEVED, SEE SHIFT ASSESSMENT, O2 IN USE O2 SAT AT 88% RT PRESENT TURNED O2 UP TO 3 L FROM 2L N/C, CALL GENE MARTIN
--- NOTE | 2019-07-05 23:20 | NUR ---
FLORENTINO KOENIG ANP CALL RETURNED REPORTED ABNORMAL ABG RESULTS CO2 LEVEL UP TO 98.[address] BEGUM FOR ORDERS
--- NOTE | 2019-07-05 23:25 | NUR ---
DR BEGUM PAGED FOR ABNORMAL LAB RESULTS, AWAITING RETURN CALL
--- NOTE | 2019-07-05 23:40 | NUR ---
DR BEGUM PAGED AGAIN NO RETURN CALL YET
--- NOTE | 2019-07-05 23:55 | NUR ---
NO RETURN CALL FROM DR BEGUM, CALLED OFFICE ANSWERING SERVICE TO HAVE THEM PAGE HIM AWAITING RETURN CALL
[2019-07-06] VITALS: BP 114/70
--- NOTE | 2019-07-06 00:20 | NUR ---
FLORENTINO BEAVER REPORTED THAT DR BEGUM HAD NOT RETURNED CALL AND HAVE PAGED HIM 3 TIMES OVER 1 HR, ORDERS RECIEVED TO HAVE RT PLACE ON BIPAP AT THIS TIME, RT NOTIFIED OF ABOVE, DR BEGUM ANSWERING SERVICE CALLED AGAIN TO PAGE HIM, AWAITING RETURN CALL
--- NOTE | 2019-07-06 01:00 | NUR ---
ANSWERING SERVICE CALLED AGAIN TO PAGE DR BEGUM WHO HAS NOT CALLED BACK, STATES WILL CONTINUE TRYING TO REACH HIM
--- NOTE | 2019-07-06 01:45 | NUR ---
VELIA FROM RT CALLED DR BEGUM ON CELL PHONE, STATES PAGER HAS NOT GONE OFF, INFORMED OF CONSULT ON PT AND ABNORMAL ABG'S WITH CO2 OF 98.7 AND THAT WE HAD SPOKE WITH SD AND PT PLACED ON BIPAP, NO FUTHER ORDERS AT THIS TIME
[2019-07-06 02:54] VITALS: BP 116/59; BMI 22.3
[2019-07-06 04:00] VITALS: BP 115/66
[2019-07-06 05:47] LABS: ALBUMIN 2.7 g/dL (3.4-5.0); ALKALINE PHOSPHATASE 88 U/L (30-120); BILIRUBIN - TOTAL 0.76 mg/dL (0.2-1.3); CALCIUM 8.6 mg/dL (8.5-10.1); CARBON DIOXIDE 37.8 mmol/L (21.0-32.0); CHLORIDE - SERUM 97 mmol/L (98-107); CKMB 0.7 U/L (0.0-3.6); CREATINE KINASE 27 UL (21-215); CREATININE - SERUM 0.7 mg/dL (0.6-1.3); MAGNESIUM - SERUM 1.5 mg/dL (1.8-2.4); PHOSPHOROUS 4.2 mg/dL (2.5-4.9); PROTEIN - SERUM 5.9 g/dL (6.4-8.2); SODIUM 135 mmol/L (136-145); TROPONIN-I < 0.017 ng/mL (0.000-0.060); eGFR NON AFRICAN AMERICAN > 90 mL/min (90-120)
[2019-07-06 05:53] LABS: ALT (SGPT) 29 U/L (10-68); CALC OSMOLALITY 271 mosm/kg (275-300); GLUCOSE 160 mg/dL (74-106); POTASSIUM - SERUM 4.9 mmol/L (3.5-5.1); UREA NITROGEN 9 mg/dL (7-18)
[2019-07-06 06:44] LABS: BASOPHILS 0 % (0-2); EOSINOPHILS 0 % (0-7); HEMOGLOBIN 13.6 g/dL (12-16); IMMATURE GRANULOCYTES 0.3 % (0-5); LYMPHOCYTES 12.5 % (15-50); MCH 30.3 pg (26.0-34.0); MCHC 29.6 g/dL (31.0-37.0); MCV 102.4 fL (80.0-100.0); MEAN PLATELET VOLUME 9.8 fL (7.4-10.4); MONOCYTES 0.7 % (2-11); NEUTROPHILS 86.5 % (40-80); PLATELET COUNT 131 10x3/uL (130-400); RBC 4.49 10x6/uL (4.00-5.40); RDW 12.3 % (11.5-14.5)
[2019-07-06 08:00] VITALS: BP 106/57
--- NOTE | 2019-07-06 10:04 | NUR ---
ALERT AND OIRENTED X3. PATIENT HAS DYSPNEA WITH ELEVATED CO2. ENCOURAGED TO KEEP BIPAP ON WHEN NOT EATING. BREATH SOUNDS DIMINISHED X4 POSTERIOR WITH NONPRODUCTIVE COUGH. O2 91% ON 4L N/C. TELEMETRY INTACT. CAP REFILL <3 SEC WITH NO PERIPHERAL EDEMA NOTED. ENCOURAGED TO USE CALL LIGHT FOR ASSSIT.ELECTROLYTES REPLACED PER PROTOCOL
[2019-07-06 11:45] LABS: FERRITIN 128 ng/mL (3-244)
[2019-07-06 11:51] LABS: ERYTHROCYTE SEDIMENTATION RATE 4 mm/hr (0-30)
[2019-07-06 12:16] LABS: C-REACTIVE PROTEIN < 0.2 mg/dL (0.0-0.9)
[2019-07-06 13:35] VITALS: Ht 157.5 cm; Wt 55.3 kg
[2019-07-06 16:00] VITALS: BP 104/64
--- NOTE | 2019-07-06 16:37 | MORECARE ---
CASE MANAGEMENT DISCHARGE SUMMARY PATIENT: LANE ONEAL UNIT: [id number] ADM DATE: 07/05/19 AGE: 59 : 62 SEX: F ROOM/BED: D.2237 AUTHOR: EDWARD TESFAYE PHYSICIAN: REFERRING PHYSICIAN: OLIVIA VALADEZ MD DATE OF SERVICE: 07/06/19 Discharge Plan Patient Name: LANE ONEAL Facility: [facility]:[place] : 1960 Planned Disposition: Home with Home Health Anticipated Discharge Date: Discharge Date: Expected LOS: Initial Reviewer: [id number] Initial Review Date: 07/05/2019 Generated: 07/06/19 5:36 pm DCPIA - Discharge Planning Initial Assessment Updated by [email or web address]: Bernardino Hicks on 07/06/19 4:36 pm * Is the patient Alert and Oriented? Yes * How many steps to enter\exit or inside your home? * PCP DR. SHEEHAN * Pharmacy [facility]. * Preadmission Environment Home with Family * ADLs Independent * Equipment Nebulizer Other Oxygen * Other Equipment HOME AND PORTABLE OXYGEN TRILOGY MACHINE PROVIDER IS [facility] * List name and contact numbers for known caregivers / representatives who currently or will assist patient after discharge: XIOMARA REYES, MOTHER, * Verbal permission to speak to the caregivers and representatives has been obtained from the patient. N/A * Community resources currently utilized None * Please name any agencies selected above. NONE * Additional services required to return to the preadmission environment? No * Can the patient safely return to the preadmission environment? Yes * Has this patient been hospitalized within the prior 30 days at any hospital? No Patient Name: LANE ONEAL Page 63847 at 1637 All edits/amendments must be made on the electronic document DICTATION DATE: 07/06/191635 GLUED WOOD TESTER: TAISHA 07/06/19 163 RPT#: [id number] DC DATE: STATUS: ADM IN [facility] [address] [place] [address] END OF REPORT
--- NOTE | 2019-07-06 16:44 | MORECARE ---
CASE MANAGEMENT DISCHARGE SUMMARY PATIENT: LANE ONEAL UNIT: [id number] ADM DATE: 07/05/19 AGE: 59 : 62 SEX: F ROOM/BED: D.2237 AUTHOR: MERA,DOC PHYSICIAN: REFERRING PHYSICIAN: OLIVIA VALADEZ MD DATE OF SERVICE: 07/06/19 Discharge Plan Patient Name: LANE ONEAL Facility: [facility]:[place] : 1960 Planned Disposition: Home with Home Health Anticipated Discharge Date: Discharge Date: Expected LOS: Initial Reviewer: [email or web address] Initial Review Date: 07/05/2019 Generated: 07/06/19 5:43 pm Comments DCP- Discharge Planning Updated by [id number]: Bernardino Hicks on 07/06/19 3:[address] Patient Name: LANE ONEAL Admission Status: ER Accout number: [id number] Admission Date: 07-05-2019 : 1960 Admission Diagnosis:ACUTE AND CHRONIC RESPIRATORY FAILURE WITH HYPERCAPNIA Attending: DEB Current LOS: 1 Anticipated DC Date: Planned Disposition: Home with Home Health Primary Insurance: [facility] MEDICARE SOLUTIONS PLANNED EXTERNAL PROVIDER: [facility] Discharge Planning Comments: CM MET WITH PT IN ROOM TO DISCUSS DISCHARGE PLANNING AND NEEDS. PT REPORTS LIVING AT HOME INDEPENDENTLY WITH HER MOTHER. PT HAS NEBULIZER, HOME AND PORTABLE OXGYEN WELL TRILOGY MACHINE FROM [facility]. PT HAS NO OUTSIDE SERVICES ASSISTING IN THE HOME. CM DISCUSSED AVAILABILITY OF HOME HEALTH, REHAB SERVICES AND MEDICAL EQUIPMENT. PT WOULD LIKE HOME HEALTH FOR DISCHARGE HOME. CM DISCUSSED PROVIDERS, PT ASKED FOR [facility], CHOICE SIGNED; PT REPORTS HER FAMILY WILL PICK HER UP FOR DISCHARGE HOME. CM FAXED REFERRAL TO [facility] AT [phone]. PT PLANS TO DISCHARGE HOME WITH MOTHER. PT REQUESTED HOME HEALTH. CM TO ARRANGE [facility] WITH PHYSICIAN AGREEMENT AND ORDER. Kinesiologist: Bernardino Hicks DCPIA - Discharge Planning Initial Assessment Updated by [email or web address]: Bernardino Hicks on 07/06/19 4:36 pm * Is the patient Alert and Oriented? Yes * How many steps to enter\exit or inside your home? * PCP DR. SHEEHAN * Pharmacy [facility]. * Preadmission Environment Home with Family * ADLs Independent * Equipment Nebulizer Other Oxygen * Other Equipment HOME AND PORTABLE OXYGEN TRILOGY MACHINE PROVIDER IS [facility] * List name and contact numbers for known caregivers / representatives who currently or will assist patient after discharge: XIOMARA REYES, MOTHER, * Verbal permission to speak to the caregivers and representatives has been obtained from the patient. N/A * Community resources currently utilized None * Please name any agencies selected above. NONE * Additional services required to return to the preadmission environment? No * Can the patient safely return to the preadmission environment? Yes * Has this patient been hospitalized within the prior 30 days at any hospital? No External Providers External Provider: [facility] Next Contact Date: 07/06/2019 Service Request Date: Service Type: Resolution: Reviewer: Comments: Last DP export: 07/06/19 3:37 pm Patient Name: LANE ONEAL Page [phone] at 1644 All edits/amendments must be made on the electronic document DICTATION DATE: 07/06/191642 CLINICAL STUDY MANAGER: TAISHA 07/06/191642 RPT#: [id number] DC DATE: STATUS: ADM IN [facility] [address] [place] [address] END OF REPORT
[2019-07-06 23:33] VITALS: BP 104/49
[2019-07-07 00:06] VITALS: BP 105/54
[2019-07-07 06:02] LABS: BASOPHILS 0 % (0-2); EOSINOPHILS 0 % (0-7); HEMATOCRIT 41.2 % (36.0-48.0); HEMOGLOBIN 12.3 g/dL (12-16); LYMPHOCYTES 12.8 % (15-50); MCH 29.5 pg (26.0-34.0); MCHC 29.9 g/dL (31.0-37.0); MONOCYTES 5.7 % (2-11); NEUTROPHILS 81.5 % (40-80); PLATELET COUNT 132 10x3/uL (130-400); RBC 4.17 10x6/uL (4.00-5.40); RDW 12.2 % (11.5-14.5); WBC 2.8 10x3/uL (4.8-10.8)
[2019-07-07 06:13] LABS: MCV 98.8 fL (80.0-100.0)
[2019-07-07 06:25] LABS: CALCIUM 8.4 mg/dL (8.5-10.1); CARBON DIOXIDE 37.8 mmol/L (21.0-32.0); CHLORIDE - SERUM 96 mmol/L (98-107); CREATININE - SERUM 0.8 mg/dL (0.6-1.3); GLUCOSE 170 mg/dL (74-106); MAGNESIUM - SERUM 1.7 mg/dL (1.8-2.4); PHOSPHOROUS 3.3 mg/dL (2.5-4.9); SODIUM 134 mmol/L (136-145); eGFR NON AFRICAN AMERICAN 78 mL/min (90-120)
[2019-07-07 06:26] LABS: CALC OSMOLALITY 271 mosm/kg (275-300); POTASSIUM - SERUM 4.1 mmol/L (3.5-5.1); UREA NITROGEN 12 mg/dL (7-18)
--- NOTE | 2019-07-07 07:52 | NUR ---
ALERT AND ORENTED ABLE TO VOICE NEEDS AND WANTSTO STAFF. O2 AT 3L VIA N/C. BIPAP AT NIGHT. IV TO RIGHT WRIST SL. TELEMERTY IN PLACE. NO NEEDS AT THIS TIMME
--- NOTE | 2019-07-07 08:23 | NUR ---
ALERT AND ORIENTED X4. O2 3 L PER N/C. STATED SLEPT WELL. RESP EVEN WITH RHONCHI NOTED POSTERIOR X4 WITH DIMINISHED BREATH SOUNDS. CAP REFILL<3 SEC. NO PERIPHERAL EDEMA NOTED. ENCOURAGED TO USE CALL LIGHT FOR ASSSIT.
[2019-07-07 09:04] VITALS: BP 160/67
[2019-07-07 16:00] VITALS: BP 137/69
[2019-07-07 18:54] LABS: BILIRUBIN NEGATIVE (NEGATIVE); GLUCOSE NEGATIVE (NEGATIVE); KETONE NEGATIVE (NEGATIVE); NITRITE NEGATIVE (NEGATIVE); UROBILINOGEN NORMAL (NORMAL)
[2019-07-07 19:58] VITALS: BP 127/83
[2019-07-08] VITALS (7 sets, daily range): BP systolic 107–135; BP diastolic 61–85
[2019-07-08 05:36] LABS: BASOPHILS 0 % (0-2); EOSINOPHILS 0 % (0-7); HEMATOCRIT 40.3 % (36.0-48.0); HEMOGLOBIN 12.4 g/dL (12-16); LYMPHOCYTES 13.5 % (15-50); MCH 29.8 pg (26.0-34.0); MCHC 30.8 g/dL (31.0-37.0); MCV 96.9 fL (80.0-100.0); MEAN PLATELET VOLUME 9.1 fL (7.4-10.4); MONOCYTES 7.5 % (2-11); PLATELET COUNT 130 10x3/uL (130-400); RBC 4.16 10x6/uL (4.00-5.40); RDW 12.2 % (11.5-14.5); WBC 3.2 10x3/uL (4.8-10.8)
[2019-07-08 06:01] LABS: AMYLASE - SERUM 36 U/L (25-115); CALC OSMOLALITY 268 mosm/kg (275-300); CALCIUM 8.3 mg/dL (8.5-10.1); CARBON DIOXIDE 38.9 mmol/L (21.0-32.0); CHLORIDE - SERUM 96 mmol/L (98-107); CREATININE - SERUM 0.8 mg/dL (0.6-1.3); GLUCOSE 146 mg/dL (74-106); LIPASE 150 U/L (73-393); MAGNESIUM - SERUM 1.8 mg/dL (1.8-2.4); PHOSPHOROUS 2.8 mg/dL (2.5-4.9); POTASSIUM - SERUM 3.8 mmol/L (3.5-5.1); SODIUM 133 mmol/L (136-145); UREA NITROGEN 13 mg/dL (7-18); eGFR NON AFRICAN AMERICAN 78 mL/min (90-120)
--- NOTE | 2019-07-08 07:48 | NUR ---
ALERT AND ORIENTED X4. O2 3.5L N/C. LUNGS DIMINISHED POSTERIOR WITH EXPIRATORY WHEEZE NOTED TO RUQ AND RLQ POSTERIOR. TELEMETRY INTACT WITH ABD. SOFT WITH BS NOTED. UP ADLIB AND ENCOURAGED TO USE CALL LIGHT FOR ASSSIT.
--- NOTE | 2019-07-08 18:15 | NUR ---
PATIENT REQUIRE FREQUENT VERBAL CUES TO START EATING. POOR APPETITE NOTED WITH ENCOURAGEMENT TO EAT INORDER TO GET BETTER TO GO HOME WITH PATIENT VERBALIZING UNDERSTANDING. ENCOURAGED TO USE CALL LIGHT FOR ASSSIT. IVF INFUSING AT PRESCRIBED RATE.
--- NOTE | 2019-07-08 19:00 | NUR ---
BEDSIDE REPORT RECEIVED AND CARE OF PT ASSUMED. PT UP AMBULATING IN ROOM AT THIS TIME. IV TO RIGHT WRIST SALINE LOCKED. O2 IN USE VIA NC AT 3L. TELEMETRY IN USE AND READING SR AT THIS ASSESSMENT. WILL MONITOR FOR NEEDS.
--- NOTE | 2019-07-08 20:26 | NUR ---
HS MEDICATIONS GIVEN. MIXED METAMUCIL WITH ORANGE JUICE.
--- NOTE | 2019-07-08 21:57 | NUR ---
COLLECTED SPUTUM FOR RESPIRATORY CULTURE AND DELIVERED TO LAB.
[2019-07-09 04:00] VITALS: BP 140/71
[2019-07-09 05:24] LABS: HEMATOCRIT 39.1 % (36.0-48.0); HEMOGLOBIN 12.2 g/dL (12-16); MCH 29.5 pg (26.0-34.0); MCHC 31.2 g/dL (31.0-37.0); RBC 4.13 10x6/uL (4.00-5.40); RDW 12.1 % (11.5-14.5); WBC 2.6 10x3/uL (4.8-10.8)
[2019-07-09 05:32] LABS: MCV 94.7 fL (80.0-100.0); PLATELET COUNT 103 10x3/uL (130-400)
[2019-07-09 05:57] LABS: CALC OSMOLALITY 269 mosm/kg (275-300); CALCIUM 8.2 mg/dL (8.5-10.1); CARBON DIOXIDE 38.5 mmol/L (21.0-32.0); CHLORIDE - SERUM 96 mmol/L (98-107); CREATININE - SERUM 0.7 mg/dL (0.6-1.3); GLUCOSE 130 mg/dL (74-106); MAGNESIUM - SERUM 1.9 mg/dL (1.8-2.4); PHOSPHOROUS 2.4 mg/dL (2.5-4.9); SODIUM 134 mmol/L (136-145); UREA NITROGEN 13 mg/dL (7-18); eGFR NON AFRICAN AMERICAN > 90 mL/min (90-120)
[2019-07-09 06:01] LABS: POTASSIUM - SERUM 3.2 mmol/L (3.5-5.1)
[2019-07-09 06:39] LABS: LYMPHOCYTES 20 % (15-50); MONOCYTES 15 % (2-11); NEUTROPHILS 64 % (40-80)
[2019-07-09 06:40] LABS: PLATELET ESTIMATE DECREASED
--- NOTE | 2019-07-09 06:55 | NUR ---
ALERT AND ORIENTED, SITTING UP IN BED. NO C/O PAIN. NO S/S OF ACUTE DISTRESS NOTED. ON 3L O2, NC. USES BIPAP PRN. ON ELECTROLYTE PROTOCOL. IV TO RIGHT WRIST, SL. SITE PATENT WITHOUT REDNESS OR SWELLING. ON TELEMETRY, 72 SR. DENIES ANY NEEDS AT THIS TIME. CALL LIGHT IN REACH. WILL CONTINUE TO MONITOR.
[2019-07-09 08:53] VITALS: BP 137/72
[2019-07-09 12:13] VITALS: BP 127/69
[2019-07-09 16:58] VITALS: BP 110/64
--- NOTE | 2019-07-09 16:58 | NUR ---
I have reviewed this patient and I concur with the Shift Assessment completed by the Licensed Practical Nurse today this shift.
--- NOTE | 2019-07-09 19:00 | NUR ---
BEDSIDE REPORT RECEIVED AND CARE OF PT ASSUMED. PT LYING ON LEFT SIDE PADDED WITH PILLOWS. NO IV AT THIS TIME...WILL RE-SITE.
--- NOTE | 2019-07-09 19:15 | NUR ---
ALERT AND ORIENTED. NO C/O PAIN. NO S/S OF ACUTE DISTRESS NOTED. CALL LIGHT IN REACH. DENIES ANY NEEDS AT THIS TIME. WILL CONTINUE TO MONITOR.
--- NOTE | 2019-07-09 19:20 | NUR ---
RE-SITED IV TO RIGHT HAND USING 22 GUAGE CATHETER. RE-STARTED IV FLUIDS / ANTIBIOTICS.
[2019-07-09 20:00] VITALS: BP 106/57
--- NOTE | 2019-07-09 20:07 | NUR ---
HS MEDICATIONS GIVEN. MIXED METAMUCIL WITH ORANGE JUICE. WILL CONTINUE TO MONITOR FOR NEEDS.
[2019-07-10] VITALS: BP 129/75
[2019-07-10 04:00] VITALS: BP 106/66
[2019-07-10 05:46] LABS: CALC OSMOLALITY 268 mosm/kg (275-300); CALCIUM 8.3 mg/dL (8.5-10.1); CARBON DIOXIDE 39.5 mmol/L (21.0-32.0); CHLORIDE - SERUM 95 mmol/L (98-107); CREATININE - SERUM 0.7 mg/dL (0.6-1.3); GLUCOSE 141 mg/dL (74-106); MAGNESIUM - SERUM 1.9 mg/dL (1.8-2.4); SODIUM 134 mmol/L (136-145); UREA NITROGEN 11 mg/dL (7-18); eGFR NON AFRICAN AMERICAN > 90 mL/min (90-120)
[2019-07-10 05:48] LABS: PHOSPHOROUS 3.7 mg/dL (2.5-4.9)
[2019-07-10 05:53] LABS: BASOPHILS 0 % (0-2); EOSINOPHILS 0 % (0-7); HEMATOCRIT 42.9 % (36.0-48.0); HEMOGLOBIN 13.1 g/dL (12-16); IMMATURE GRANULOCYTES 0.4 % (0-5); LYMPHOCYTES 15.9 % (15-50); MCH 29.2 pg (26.0-34.0); MCHC 30.5 g/dL (31.0-37.0); MCV 95.5 fL (80.0-100.0); MEAN PLATELET VOLUME 9.5 fL (7.4-10.4); MONOCYTES 10.9 % (2-11); NEUTROPHILS 72.8 % (40-80); RBC 4.49 10x6/uL (4.00-5.40); RDW 12.1 % (11.5-14.5); WBC 2.6 10x3/uL (4.8-10.8)
[2019-07-10 05:56] LABS: PLATELET COUNT 149 10x3/uL (130-400)
[2019-07-10 07:37] VITALS: BP 136/73
--- NOTE | 2019-07-10 08:18 | NUR ---
SHE IS WAKE, ON 3.5 LITER NC AT HOME. DENIES ANY NEEDS.
--- NOTE | 2019-07-10 11:15 | NUR ---
DID DISCHARGE PAPERWORK, QUESTIONS ANSWERED. HER IS DOWNSTAIRS WAITING ON HER.
[2019-07-10 12:17] VITALS: BP 139/74
[2019-07-10 15:23] VITALS: BP 111/69
--- NOTE | 2019-07-10 19:23 | NUR ---
REPORT GIVEN TO CLAUS MARTÍNEZ.
[2019-07-10 21:55] VITALS: BP 123/65
[2019-07-11 00:55] VITALS: BP 113/67
--- NOTE | 2019-07-11 02:40 | NUR ---
1900)rec'd. chge of shift walking rounds coming out of restroom. 02 5l nc.denies any pain c/o some sob still on minimal activity.no respiratory distress observed.will continue to observe for any chges inresp status and follow current plan of care.
--- NOTE | 2019-07-11 05:11 | NUR ---
I have reviewed this patient and I concur with the Shift Assessment completed by the Licensed Practical Nurse today this shift.
[2019-07-11 05:23] LABS: BASOPHILS 0 % (0-2); EOSINOPHILS 0 % (0-7); HEMATOCRIT 40.3 % (36.0-48.0); HEMOGLOBIN 12.3 g/dL (12-16); IMMATURE GRANULOCYTES 0.3 % (0-5); LYMPHOCYTES 10.5 % (15-50); MCH 29.1 pg (26.0-34.0); MCHC 30.5 g/dL (31.0-37.0); MCV 95.3 fL (80.0-100.0); MEAN PLATELET VOLUME 9.5 fL (7.4-10.4); MONOCYTES 5.9 % (2-11); NEUTROPHILS 83.3 % (40-80); PLATELET COUNT 154 10x3/uL (130-400); RBC 4.23 10x6/uL (4.00-5.40); RDW 12.1 % (11.5-14.5)
[2019-07-11 05:34] LABS: WBC 3.5 10x3/uL (4.8-10.8)
[2019-07-11 05:49] LABS: CALCIUM 7.8 mg/dL (8.5-10.1); CARBON DIOXIDE 37.5 mmol/L (21.0-32.0); CHLORIDE - SERUM 95 mmol/L (98-107); CREATININE - SERUM 0.7 mg/dL (0.6-1.3); MAGNESIUM - SERUM 1.9 mg/dL (1.8-2.4); PHOSPHOROUS 2.8 mg/dL (2.5-4.9); POTASSIUM - SERUM 3.8 mmol/L (3.5-5.1); SODIUM 131 mmol/L (136-145); eGFR NON AFRICAN AMERICAN > 90 mL/min (90-120)
[2019-07-11 05:56] LABS: CALC OSMOLALITY 269 mosm/kg (275-300); GLUCOSE 199 mg/dL (74-106); UREA NITROGEN 14 mg/dL (7-18)
[2019-07-11 06:50] VITALS: BP 120/50
--- NOTE | 2019-07-11 07:00 | NUR ---
RECEIVED PT FROM BUSINESS INTELLIGENCE ETL DEVELOPER. UPON ENTERING PT IS UPRIGHT IN BED, RECEIVING TREATMENT FROM RT. PT IS ALERT AND ORIENTED X4. IN FOR COPD EXACERBATION WHICH IS COMMON FOR PT PER REPORT. RIGHT HAND IV THAT IS SALINE LOCKED. PT IS ON 3L OF O2 VIA NC. DENIES ANY NEEDS AT THIS TIME. WILL CONTINUE TO MONITOR.
--- NOTE | 2019-07-11 07:40 | NUR ---
PT UPRIGHT IN BED UPON ENTERING. ALERT AND ORIENTED X4. ASSESSMENT PERFORMED AT THIS TIME. DENIES ANY NEEDS. BED IN LOWEST POSITION, BED RAILS X2, CALL LIGHT WITHING REACH. PT IS UP ADLIB. WILL CONTINUE TO MONITOR.
--- NOTE | 2019-07-11 08:52 | NUR ---
ADMINSITERED MORNING MEDICATION AT THIS TIME. NO DIFFICULTY SWALLOWING. ADMINISTERED IV SOLU-MEDEROL, COMPLAINT AND SC LOVENOX SHOT. PT UP RIGHT IN BED EATING BREAKFAST. REQUESTED SUGAR, WILL PROVIDE PROMPTLY. DENIES ANY OTHER NEEDS AT THIS TIME. WILL CONTINUE TO MONITOR.
[2019-07-11 09:05] VITALS: BP 135/69
--- NOTE | 2019-07-11 10:49 | NUR ---
ADMINISTERED MEDICATION, NO DIFFICULTY SWALLOWING. RESTING COMFORTABLY IN BED. DENIES ANY NEEDS AT THIS TIME. WILL CONTINUE TO MONITOR.
--- NOTE | 2019-07-11 11:39 | NUR ---
PT RESTING COMFORTABLY IN BED. DENIES ANY NEEDS AT THIS TIME. WILL CONTINUE TO MONITOR.
--- NOTE | 2019-07-11 13:06 | NUR ---
I have reviewed this patient and I concur with the Shift Assessment completed by the Licensed Practical Nurse today this shift.
[2019-07-11 13:41] VITALS: BP 135/64
--- NOTE | 2019-07-11 15:25 | NUR ---
ADMINISTERED MEDICATION AT THIS TIME, NO DIFFICULTY. INQUIRED ABOUT POSSIBLE DISCHARGE. WILL CONTACT VENEER CLIPPER HELPER MANUFACTURING TECHNOLOGY PROFESSOR. DENIES ANY OTHER NEEDS AT THIS TIME. WILL CONTINUE TO MONITOR.
--- NOTE | 2019-07-11 15:50 | NUR ---
PT IS UP RIGHT IN BED. IS WAITING FOR DR. VACA TO ROUND TO ASK ABOUT POSSIBLE DISCHARGE. DENIES ANY NEEDS. WILL CONTINUE TO MONITOR.
[2019-07-11] MEDS ORDERED: ZITHROMAX250 MG PO (16:01)
[2019-07-11] MEDS ORDERED: PREDNISONE10 MG PO (16:01)
--- NOTE | 2019-07-11 16:42 | MORECARE ---
CASE MANAGEMENT DISCHARGE SUMMARY PATIENT: LANE ONEAL UNIT: [id number] ADM DATE: 07/05/19 AGE: 59 : 62 SEX: F ROOM/BED: D.2237 AUTHOR: MERA,DOC PHYSICIAN: REFERRING PHYSICIAN: OLIVIA VALADEZ MD DATE OF SERVICE: 07/11/19 Discharge Plan Patient Name: LANE ONEAL Facility: [facility]:[place] : 1960 Planned Disposition: Home with Home Health Anticipated Discharge Date: Discharge Date: Expected LOS: Initial Reviewer: [id number] Initial Review Date: 07/05/2019 Generated: 07/11/19 5:42 pm Comments DCP- Discharge Planning Updated by [id number]: Palak White on 07/11/19 3:[address] I spoke with [facility] [place] and they will call patient in am about getting more portables to her she has enough portable o2 to get home DCP- Discharge Planning Updated by [id number]: Palak White on 07/11/19 3:[address] PATIENT WILL BE DISCHARGING HOME TODAY WITH [facility], SHE IS CURRENT WITH THEM. IMM SERVED AND EXPLAINED. PATIENT HAS HOME O2 ALREADY FROM [facility] DCP- Discharge Planning Updated by [id number]: Bernardino Hicks on 07/06/19 3:[address] Patient Name: LANE ONEAL Admission Status: ER Accout number: [id number] Admission Date: 07-05-2019 : 1960 Admission Diagnosis:ACUTE AND CHRONIC RESPIRATORY FAILURE WITH HYPERCAPNIA Attending: DEB Current LOS: 1 Anticipated DC Date: Planned Disposition: Home with Home Health Primary Insurance: [facility] MEDICARE SOLUTIONS PLANNED EXTERNAL PROVIDER: [facility] Discharge Planning Comments: CM MET WITH PT IN ROOM TO DISCUSS DISCHARGE PLANNING AND NEEDS. PT REPORTS LIVING AT HOME INDEPENDENTLY WITH HER MOTHER. PT HAS NEBULIZER, HOME AND PORTABLE OXGYEN WELL TRILOGY MACHINE FROM [facility]. PT HAS NO OUTSIDE SERVICES ASSISTING IN THE HOME. CM DISCUSSED AVAILABILITY OF HOME HEALTH, REHAB SERVICES AND MEDICAL EQUIPMENT. PT WOULD LIKE HOME HEALTH FOR DISCHARGE HOME. CM DISCUSSED PROVIDERS, PT ASKED FOR [facility], CHOICE SIGNED; PT REPORTS HER FAMILY WILL PICK HER UP FOR DISCHARGE HOME. CM FAXED REFERRAL TO [facility] AT [phone]. PT PLANS TO DISCHARGE HOME WITH MOTHER. PT REQUESTED HOME HEALTH. CM TO [facility]ANGE [facility] WITH PHYSICIAN AGREEMENT AND ORDER. Natural Fabricator: Bernardino Moralezwell DCPIA - Discharge Planning Initial Assessment Updated by [id number]: Bernardino Hicks on 07/06/19 4:36 pm * Is the patient Alert and Oriented? Yes * How many steps to enter\exit or inside your home? * PCP DR. SHEEHAN * Pharmacy [facility]. * Preadmission Environment Home with Family * ADLs Independent * Equipment Nebulizer Other Oxygen * Other Equipment HOME AND PORTABLE OXYGEN TRILOGY MACHINE PROVIDER IS [facility] * List name and contact numbers for known caregivers / representatives who currently or will assist patient after discharge: XIOMARA REYES, MOTHER, * Verbal permission to speak to the caregivers and representatives has been obtained from the patient. N/A * Community resources currently utilized None * Please name any agencies selected above. NONE * Additional services required to return to the preadmission environment? No * Can the patient safely return to the preadmission environment? Yes * Has this patient been hospitalized within the prior 30 days at any hospital? No Coverage Notice Reviewer: [id number] - Bernardino Hicks Notice Issued Date-Time: 07/06/2019 16:05 Notice Type: Patient Choice Letter Notice Delivered To: Patient Relationship to Patient: Bladder Cleaner Name: Delivery Method: HAND - Hand Delivered Makenzie Days: Prior Verbal Notification: Recipient Understood Notice: Yes Recipient Signature: Yes Med Rec Note Co-signed by Attending: Coverage Notice Comment: [facility] Reviewer: [id number] - Paalk White Notice Issued Date-Time: 07/11/2019 16:25 Notice Type: IM Discharge Notice Notice Delivered To: Patient Relationship to Patient: Bladder Cleaner Name: Delivery Method: HAND - Hand Delivered Makenzie Days: Prior Verbal Notification: Recipient Understood Notice: Yes Recipient Signature: Yes Med Rec Note Co-signed by Attending: Coverage Notice Comment: Last DP export: 07/06/19 3:44 pm Patient Name: LANE ONEAL Page 06916 at 1642 All edits/amendments must be made on the electronic document DICTATION DATE: 07/11/191641 MARBLE MACHINE OPERATOR: TAISHA 07/11/191641 RPT#: [id number] DC DATE: STATUS: ADM IN [facility] [address] [place] [address] END OF REPORT
--- NOTE | 2019-07-11 17:45 | NUR ---
DC IV FROM RIGHT HAND. CATHETER TIP INTACT. TOELRATED WELL. ALL PAPERWORK FILLED OUT AND SIGNED. WAITING FOR RIDE. DENIES ANY NEEDS.
--- NOTE | 2019-07-12 13:35 | MORECARE ---
CASE MANAGEMENT DISCHARGE SUMMARY PATIENT: LANE ONEAL UNIT: [id number] ADM DATE: 07/05/19 AGE: 59 : 62 SEX: F ROOM/BED: D.2237 AUTHOR: MERA,DOC PHYSICIAN: REFERRING PHYSICIAN: OLIVIA VALADEZ MD DATE OF SERVICE: 07/12/19 Discharge Plan Patient Name: LANE ONEAL Facility: [facility]:[place] : 1960 Planned Disposition: Home with Home Health Anticipated Discharge Date: Discharge Date: 07/11/2019 Expected LOS: Initial Reviewer: [email or web address] Initial Review Date: 07/05/2019 Generated: 07/12/19 2:34 pm Comments DCP- Discharge Planning Updated by [id number]: Palak White on 07/11/19 3:[address] I spoke with [facility] and they will call patient in am about getting more portables to her she has enough portable o2 to get home DCP- Discharge Planning Updated by [id number]: Palak White on 07/11/19 3:[address] PATIENT WILL BE DISCHARGING HOME TODAY WITH [facility], SHE IS CURRENT WITH THEM. IMM SERVED AND EXPLAINED. PATIENT HAS HOME O2 ALREADY FROM [facility] DCP- Discharge Planning Updated by [id number]: Bernardino Hicks on 07/06/19 3:[address] Patient Name: LANE ONEAL Admission Status: ER Accout number: [id number] Admission Date: 07-05-2019 : 1960 Admission Diagnosis:ACUTE AND CHRONIC RESPIRATORY FAILURE WITH HYPERCAPNIA Attending: DEB Current LOS: 1 Anticipated DC Date: Planned Disposition: Home with Home Health Primary Insurance: [facility] MEDICARE SOLUTIONS PLANNED EXTERNAL PROVIDER: [facility] Discharge Planning Comments: CM MET WITH PT IN ROOM TO DISCUSS DISCHARGE PLANNING AND NEEDS. PT REPORTS LIVING AT HOME INDEPENDENTLY WITH HER MOTHER. PT HAS NEBULIZER, HOME AND PORTABLE OXGYEN WELL TRILOGY MACHINE FROM [facility]. PT HAS NO OUTSIDE SERVICES ASSISTING IN THE HOME. CM DISCUSSED AVAILABILITY OF HOME HEALTH, REHAB SERVICES AND MEDICAL EQUIPMENT. PT WOULD LIKE HOME HEALTH FOR DISCHARGE HOME. CM DISCUSSED PROVIDERS, PT ASKED FOR [facility], CHOICE SIGNED; PT REPORTS HER FAMILY WILL PICK HER UP FOR DISCHARGE HOME. CM FAXED REFERRAL TO [facility] AT [phone]. PT PLANS TO DISCHARGE HOME WITH MOTHER. PT REQUESTED HOME HEALTH. CM TO [facility]ANGE [facility] WITH PHYSICIAN AGREEMENT AND ORDER. Electronic Warfare Technician: Bernardino Moralezwell DCPIA - Discharge Planning Initial Assessment Updated by [id number]: Bernardino Hicks on 07/06/19 4:36 pm * Is the patient Alert and Oriented? Yes * How many steps to enter\exit or inside your home? * PCP DR. SHEEHAN * Pharmacy [facility]. * Preadmission Environment Home with Family * ADLs Independent * Equipment Nebulizer Other Oxygen * Other Equipment HOME AND PORTABLE OXYGEN TRILOGY MACHINE PROVIDER IS [facility] * List name and contact numbers for known caregivers / representatives who currently or will assist patient after discharge: XIOMARA REYES, MOTHER, * Verbal permission to speak to the caregivers and representatives has been obtained from the patient. N/A * Community resources currently utilized None * Please name any agencies selected above. NONE * Additional services required to return to the preadmission environment? No * Can the patient safely return to the preadmission environment? Yes * Has this patient been hospitalized within the prior 30 days at any hospital? No Coverage Notice Reviewer: [id number] - Bernardino Hicks Notice Issued Date-Time: 07/06/2019 16:05 Notice Type: Patient Choice Letter Notice Delivered To: Patient Relationship to Patient: Medical Appointment Clerk Name: Delivery Method: HAND - Hand Delivered Makenzie Days: Prior Verbal Notification: Recipient Understood Notice: Yes Recipient Signature: Yes Med Rec Note Co-signed by Attending: Coverage Notice Comment: [facility] Reviewer: [id number] - Palak White Notice Issued Date-Time: 07/11/2019 16:25 Notice Type: IM Discharge Notice Notice Delivered To: Patient Relationship to Patient: Medical Appointment Clerk Name: Delivery Method: HAND - Hand Delivered Makenzie Days: Prior Verbal Notification: Recipient Understood Notice: Yes Recipient Signature: Yes Med Rec Note Co-signed by Attending: Coverage Notice Comment: Last DP export: 07/11/19 3:43 pm Patient Name: LANE ONEAL Page 11523 at 1335 All edits/amendments must be made on the electronic document DICTATION DATE: 07/12/19 1335 CLINICAL TECHNOLOGIST: TAISHA 07/12/19 1335 RPT#: [id number] DC DATE:07/11/19 STATUS: DIS IN [facility] [address] [place] [address] END OF REPORT
== END 2019-07-11 18:19 | disposition home health service (06) | DRG 189 ==
LOC: D.ER 19:36 → D.MS 21:13
PROVIDERS: Family Medicine; Internal Medicine Pulmonary Disease; ADMIT Family Medicine; ATTEND Family Medicine
DX: J96.22 Acute and chronic respiratory failure with hypercapnia (principal); J44.1 Chronic obstructive pulmonary disease with (acute) exacerbation; I50.32 Chronic diastolic (congestive) heart failure; F17.203 Nicotine dependence unspecified, with withdrawal; E87.1 Hypo-osmolality and hyponatremia; I11.0 Hypertensive heart disease with heart failure; D75.89 Other specified diseases of blood and blood-forming organs; M19.90 Unspecified osteoarthritis, unspecified site; K21.9 Gastro-esophageal reflux disease without esophagitis; F41.8 Other specified anxiety disorders; M54.9 Dorsalgia, unspecified; J96.21 Acute and chronic respiratory failure with hypoxia; J20.9 Acute bronchitis, unspecified; I48.91 Unspecified atrial fibrillation; E87.6 Hypokalemia; F41.9 Anxiety disorder, unspecified; G47.33 Obstructive sleep apnea (adult) (pediatric)

== ENCOUNTER 2019-07-30 14:07 | Inpatient (IN) | payer MEDICARE, MEDICAID ==
[~2019-07-30] VITALS: Ht 157.5 cm; Wt 55.3 kg
[2019-07-30 15:11] LABS: BASOPHILS 0.2 % (0-2); EOSINOPHILS 0.2 % (0-7); HEMATOCRIT 44.4 % (36.0-48.0); IMMATURE GRANULOCYTES 0.2 % (0-5); LYMPHOCYTES 37.1 % (15-50); MCH 30.2 pg (26.0-34.0); MCHC 29.3 g/dL (31.0-37.0); MCV 103.3 fL (80.0-100.0); MEAN PLATELET VOLUME 9.7 fL (7.4-10.4); MONOCYTES 13.6 % (2-11); NEUTROPHILS 48.7 % (40-80); RDW 13.1 % (11.5-14.5); WBC 4.6 10x3/uL (4.8-10.8)
[2019-07-30 15:12] LABS: PLATELET COUNT 190 10x3/uL (130-400)
[2019-07-30 15:26] LABS: INR 0.97 (0.85-1.17); PROTIME 12.8 SECONDS (11.6-15.0)
[2019-07-30 15:30] VITALS: BP 131/66
[2019-07-30 15:32] LABS: CALC OSMOLALITY 274 mosm/kg (275-300); CALCIUM 8.5 mg/dL (8.5-10.1); CARBON DIOXIDE 39.4 mmol/L (21.0-32.0); CHLORIDE - SERUM 99 mmol/L (98-107); CREATININE - SERUM 0.6 mg/dL (0.6-1.3); POTASSIUM - SERUM 3.7 mmol/L (3.5-5.1); SODIUM 140 mmol/L (136-145); UREA NITROGEN 5 mg/dL (7-18); eGFR NON AFRICAN AMERICAN > 90 mL/min (90-120)
[2019-07-30 15:38] LABS: GLUCOSE 88 mg/dL (74-106)
[2019-07-30 15:49] LABS: ALBUMIN 3.1 g/dL (3.4-5.0); ALKALINE PHOSPHATASE 62 U/L (30-120); ALT (SGPT) 19 U/L (10-68); BILIRUBIN - TOTAL 0.57 mg/dL (0.2-1.3); CKMB 1.2 U/L (0.0-3.6); CREATINE KINASE 24 UL (21-215); FERRITIN 77 ng/mL (3-244); PRO BNP 340 pg/mL (0-125); PROTEIN - SERUM 6.1 g/dL (6.4-8.2)
[2019-07-30 15:56] LABS: C-REACTIVE PROTEIN < 0.2 mg/dL (0.0-0.9); TROPONIN-I < 0.017 ng/mL (0.000-0.060)
[2019-07-30 16:00] VITALS: BP 123/71
[2019-07-30 16:19] LABS: ERYTHROCYTE SEDIMENTATION RATE 3 mm/hr (0-30)
--- NOTE | 2019-07-30 17:33 | NUR ---
REPORT CALLED TO BENJI JIANG.
[2019-07-30 20:32] VITALS: BP 137/79; BMI 24.6
[2019-07-30 23:00] VITALS: BP 100/56
--- NOTE | 2019-07-30 23:24 | NUR ---
PATIENT DENIES ANY NEEDS AT THIS TIME. AROUSES EASILY FROM SLEEP WITH VERBAL STIMULI. CALL LIGHT WITHIN REACH, BED IN LOW POSITION.
--- NOTE | 2019-07-31 01:30 | NUR ---
PATIENT SLEEPING WITH NO CHANGES NOTED. CALL LIGHT WITHIN REACH, BED IN LOW POSITION.
[2019-07-31 03:00] VITALS: BP 103/67
--- NOTE | 2019-07-31 03:30 | NUR ---
NO CHANGES IN PATIENT CONDITION. CALL LIGHT WITHIN REACH, BED IN LOW POSITION.
[2019-07-31 03:42] LABS: BASOPHILS 0 % (0-2); EOSINOPHILS 0.3 % (0-7); HEMATOCRIT 46.1 % (36.0-48.0); HEMOGLOBIN 13.5 g/dL (12-16); IMMATURE GRANULOCYTES 0.3 % (0-5); LYMPHOCYTES 23.6 % (15-50); MCH 30.1 pg (26.0-34.0); MCHC 29.3 g/dL (31.0-37.0); MCV 102.7 fL (80.0-100.0); MEAN PLATELET VOLUME 9.6 fL (7.4-10.4); MONOCYTES 3.5 % (2-11); NEUTROPHILS 72.3 % (40-80); PLATELET COUNT 164 10x3/uL (130-400); RBC 4.49 10x6/uL (4.00-5.40); RDW 12.9 % (11.5-14.5)
[2019-07-31 04:06] LABS: ALBUMIN 3.1 g/dL (3.4-5.0); ALKALINE PHOSPHATASE 64 U/L (30-120); ALT (SGPT) 19 U/L (10-68); BILIRUBIN - TOTAL 0.58 mg/dL (0.2-1.3); CALCIUM 8.5 mg/dL (8.5-10.1); CARBON DIOXIDE 37.2 mmol/L (21.0-32.0); CHLORIDE - SERUM 100 mmol/L (98-107); GLUCOSE 130 mg/dL (74-106); SODIUM 140 mmol/L (136-145)
[2019-07-31 04:07] LABS: CALC OSMOLALITY 278 mosm/kg (275-300); CREATININE - SERUM 0.8 mg/dL (0.6-1.3); POTASSIUM - SERUM 4.7 mmol/L (3.5-5.1); UREA NITROGEN 8 mg/dL (7-18); eGFR NON AFRICAN AMERICAN 78 mL/min (90-120)
[2019-07-31 04:24] LABS: WBC 2.9 10x3/uL (4.8-10.8)
--- NOTE | 2019-07-31 05:30 | NUR ---
PATIENT WANTED O2 BACK ON PLACED ON AT 3L/MIN VIA NC. CALL LIGHT WITHIN REACH, BED IN LOW POSITION.
[2019-07-31 07:00] VITALS: BP 124/83
--- NOTE | 2019-07-31 07:03 | NUR ---
REPORT RECIEVED, SHIFT ASSESSMENT COMPLETE, PT IS ALERT AND ORIENTED, ON 2L NC WITH 97% O2 SAT, ALL PPP, VSS, CALL LIGHT IN REACH
--- NOTE | 2019-07-31 09:30 | NUR ---
IS GIVEN TO PT, 750 PULLED AT THIS TIME WITH GOOD EFFORT
[2019-07-31 09:59] VITALS: Ht 157.5 cm; Wt 55.3 kg
--- NOTE | 2019-07-31 10:52 | NUR ---
DR. SHEEHAN AT BEDSIDE, UPDATE GIVEN
[2019-07-31 11:00] VITALS: BP 110/60
--- NOTE | 2019-07-31 13:00 | NUR ---
PT RESTING AT THIS TIME, WILL CON'T TO MONITOR
--- NOTE | 2019-07-31 13:21 | MORECARE ---
CASE MANAGEMENT DISCHARGE SUMMARY PATIENT: LANE ONEAL UNIT: [id number] ADM DATE: 07/30/19 AGE: 59 : 62 SEX: F ROOM/BED: D.2305 AUTHOR: EDWARD TESFAYE PHYSICIAN: REFERRING PHYSICIAN: GARY SHEEHAN MD DATE OF SERVICE: 07/31/19 Discharge Plan Patient Name: LANE ONEAL Facility: [facility]:[place] : 1960 Planned Disposition: Home Anticipated Discharge Date: 08/02/19 Discharge Date: Expected LOS: 3 Initial Reviewer: [id number] Initial Review Date: 07/31/2019 Generated: 07/31/19 2:20 pm DCPIA - Discharge Planning Initial Assessment Updated by [email or web address]: Mary Moreno on 07/31/19 1:18 pm * Is the patient Alert and Oriented? Yes * How many steps to enter\exit or inside your home? * PCP Trev * Pharmacy [facility] * Preadmission Environment Home with Family * ADLs Independent * Equipment Nebulizer Oxygen * Other Equipment Trilogy, portable oxygen * List name and contact numbers for known caregivers / representatives who currently or will assist patient after discharge: Nadia Lin, Mom, Ttee Salcedo, Daughter, * Verbal permission to speak to the caregivers and representatives has been obtained from the patient. Yes * Community resources currently utilized None * Please name any agencies selected above. [facility] provides: Nebulizer, Trilogy, Home & Portable Oxygen. * Additional services required to return to the preadmission environment? No * Can the patient safely return to the preadmission environment? Yes * Has this patient been hospitalized within the prior 30 days at any hospital? Yes Patient Name: LANE ONEAL Page 82162 at 1321 All edits/amendments must be made on the electronic document DICTATION DATE: 07/31/19 1320 GRAPPLE SKIDDER OPERATOR: TAISHA 07/31/19 1320 RPT#: [id number] DC DATE: STATUS: ADM IN [facility] [address] [place] [address] END OF REPORT
--- NOTE | 2019-07-31 13:34 | MORECARE ---
CASE MANAGEMENT DISCHARGE SUMMARY PATIENT: LANE ONEAL UNIT: [id number] ADM DATE: 07/30/19 AGE: 59 : 62 SEX: F ROOM/BED: D.2309 AUTHOR: MERADOC PHYSICIAN: REFERRING PHYSICIAN: GARY SHEEHAN MD DATE OF SERVICE: 07/31/19 Discharge Plan Patient Name: LANE ONEAL Facility: [facility]:[place] : 1960 Planned Disposition: Home Anticipated Discharge Date: 08/02/19 Discharge Date: Expected LOS: 3 Initial Reviewer: [email or web address] Initial Review Date: 07/31/2019 Generated: 07/31/19 2:34 pm Comments DCP- Discharge Planning Updated by [id number]: Mary Moreno on 07/31/19 12:[address] Patient Name: LANE ONEAL Admission Status: ER Accout number: [id number] Admission Date: 07-30-2019 : 1960 Admission Diagnosis: Attending: GARY SHEEHAN Current LOS: 1 Anticipated DC Date: 08-02-2019 Planned Disposition: Home Primary Insurance: [facility] MEDICARE SOLUTIONS Discharge Planning Comments: ERON met with patient to discuss discharge planning / needs. Patient states she lives at home with her mom who has early onset dementia. States she has a daughter that lives out of town and a daughter that lives out of state. States she plans to return home upon hospital DC. States home environment is safe. States home health did not ever call her or come see her after last hospital DC. Also states she is unable to get one of her nebulizer medications filled because she can't afford it. States it cost ~ $400.00 with her prescription insurance. ERON called [facility] to find out why they didn't see her upon last hospital DC. ERON was told that [facility] discharged patient 07/05/19. Didn't know anything about a referral being sent to them at discharge. Will have someone call me back. ERON will continue to follow and assist as needed with discharge planning / needs. Paper Rewinder: Mary Moreno DCPIA - Discharge Planning Initial Assessment Updated by [id number]: Mary Moreno on 07/31/19 1:18 pm * Is the patient Alert and Oriented? Yes * How many steps to enter\exit or inside your home? * PCP Trev * Pharmacy [facility] * Preadmission Environment Home with Family * ADLs Independent * Equipment Nebulizer Oxygen * Other Equipment Trilogy, portable oxygen * List name and contact numbers for known caregivers / representatives who currently or will assist patient after discharge: Nadia Lin, Mom, Tete Salcedo, Daughter, * Verbal permission to speak to the caregivers and representatives has been obtained from the patient. Yes * Community resources currently utilized None * Please name any agencies selected above. [facility] provides: Nebulizer, Trilogy, Home & Portable Oxygen. * Additional services required to return to the preadmission environment? No * Can the patient safely return to the preadmission environment? Yes * Has this patient been hospitalized within the prior 30 days at any hospital? Yes Last DP export: 07/31/19 12:21 p Patient Name: LANE ONEAL Page 15879 at 1334 All edits/amendments must be made on the electronic document DICTATION DATE: 07/31/19 1334 WELDER FITTER ARC: TAISHA 07/31/19 1334 RPT#: [id number] DC DATE: STATUS: ADM IN [facility] [address] [place] [address] END OF REPORT
[2019-07-31 15:00] VITALS: BP 156/83
--- NOTE | 2019-07-31 15:15 | NUR ---
PT UPTO BSC, 100CC UOP, SM BM AT THIS TIME,
--- NOTE | 2019-07-31 16:31 | MORECARE ---
CASE MANAGEMENT DISCHARGE SUMMARY PATIENT: LANE ONEAL UNIT: [id number] ADM DATE: 07/30/19 AGE: 59 : 62 SEX: F ROOM/BED: D.2305 AUTHOR: MERA,DOC PHYSICIAN: REFERRING PHYSICIAN: GARY KARIMI MD DATE OF SERVICE: 07/31/19 Discharge Plan Patient Name: LANE ONEAL Facility: [facility]:[place] : 1960 Planned Disposition: Home Anticipated Discharge Date: 08/02/19 Discharge Date: Expected LOS: 3 Initial Reviewer: [id number] Initial Review Date: 07/31/2019 Generated: 07/31/19 5:31 pm Comments DCP- Discharge Planning Updated by [id number]: Mary Moreno on 07/31/19 3:[address] CM spoke with Jim at [facility] per Dr. Owen's request to see if the Trilogy is working. Jim stated the Trilogy is working, but their most recent overnight pulse ox showed the oxygen needed to be increased. Jim faxed copy of test results and CM reviewed findings of test result with Dr. Owen, copy on chart. CM informed Dr. Owen that [facility] did not admit patient upon last hospital DC, and that patient reported problems getting her updraft medication filled due to cost. Dr. Owen asked CM to make sure patient is getting her updraft medication through the DME and billed to her part B insurance instead of getting it through a pharmacy through her Rx plan. CM called Jim with [facility] to see if they have been providing the updraft medications to the patient. Jim stated they have not. Jim will fax paperwork for Dr. Oewn to sign to arrange for DME to provide updraft medications. DCP- Discharge Planning Updated by [id number]: Mary Moreno on 07/31/19 12:[address] Patient Name: LANE ONEAL Admission Status: ER Accout number: [id number] Admission Date: 07-30-2019 : 1960 Admission Diagnosis: Attending: GARY KARIMI Current LOS: 1 Anticipated DC Date: 08-02-2019 Planned Disposition: Home Primary Insurance: [facility] MEDICARE SOLUTIONS Discharge Planning Comments: CM met with patient to discuss discharge planning / needs. Patient states she lives at home with her mom who has early onset dementia. States she has a daughter that lives out of town and a daughter that lives out of state. States she plans to return home upon hospital DC. States home environment is safe. [facility] home health did not ever call her or come see her after last hospital DC. Also states she is unable to get one of her nebulizer medications filled because she can't afford it. States it cost ~ $400.00 with her prescription insurance. CM called [facility] to find out why they didn't see her upon last hospital DC. ERON was told that [facility] discharged patient 07/05/19. Didn't know anything about a referral being sent to them at discharge. Will have someone call me back. CM will continue to follow and assist as needed with discharge planning / needs. Postal Worker: Mary Moreno DCPIA - Discharge Planning Initial Assessment Updated by [id number]: Mary Moreno on 07/31/19 1:18 pm * Is the patient Alert and Oriented? Yes * How many steps to enter\exit or inside your home? * PCP Karimi * Pharmacy [facility] * Preadmission Environment Home with Family * ADLs Independent * Equipment Nebulizer Oxygen * Other Equipment Trilogy, portable oxygen * List name and contact numbers for known caregivers / representatives who currently or will assist patient after discharge: Nadia Lin, Mom, Tete Salcedo, Daughter, * Verbal permission to speak to the caregivers and representatives has been obtained from the patient. Yes * Community resources currently utilized None * Please name any agencies selected above. [facility] provides: Nebulizer, Trilogy, Home & Portable Oxygen. * Additional services required to return to the preadmission environment? No * Can the patient safely return to the preadmission environment? Yes * Has this patient been hospitalized within the prior 30 days at any hospital? Yes Last DP export: 07/31/19 12:34 p Patient Name: LANE ONEAL Page 26727 at 1631 All edits/amendments must be made on the electronic document DICTATION DATE: 07/31/19 1631 RESIDENT CARE DIRECTOR: DM 07/31/19 1631 RPT#: [id number] DC DATE: STATUS: ADM IN [facility] [address] [place] [address] END OF REPORT
--- NOTE | 2019-07-31 17:13 | NUR ---
NO NEEDS NOTED AT THIS TIME, WILL CON'T TO MONITOR
[2019-07-31 19:00] VITALS: BP 117/69
[2019-07-31 23:00] VITALS: BP 135/69
[2019-08-01 03:00] VITALS: BP 133/68
[2019-08-01 04:07] LABS: BASOPHILS 0 % (0-2); EOSINOPHILS 0 % (0-7); HEMATOCRIT 42.1 % (36.0-48.0); HEMOGLOBIN 12.9 g/dL (12-16); LYMPHOCYTES 18.9 % (15-50); MCH 29.7 pg (26.0-34.0); MCHC 30.6 g/dL (31.0-37.0); MEAN PLATELET VOLUME 9.7 fL (7.4-10.4); MONOCYTES 4.8 % (2-11); NEUTROPHILS 76.3 % (40-80); PLATELET COUNT 175 10x3/uL (130-400); RBC 4.34 10x6/uL (4.00-5.40); RDW 12.5 % (11.5-14.5); WBC 2.7 10x3/uL (4.8-10.8)
[2019-08-01 04:40] LABS: ALBUMIN 2.9 g/dL (3.4-5.0); ALKALINE PHOSPHATASE 57 U/L (30-120); ALT (SGPT) 15 U/L (10-68); CALC OSMOLALITY 271 mosm/kg (275-300); CALCIUM 8.6 mg/dL (8.5-10.1); CARBON DIOXIDE 34.6 mmol/L (21.0-32.0); CHLORIDE - SERUM 98 mmol/L (98-107); CREATININE - SERUM 0.6 mg/dL (0.6-1.3); GLUCOSE 152 mg/dL (74-106); PRO BNP 479 pg/mL (0-125); PROTEIN - SERUM 5.8 g/dL (6.4-8.2); SODIUM 135 mmol/L (136-145); eGFR NON AFRICAN AMERICAN > 90 mL/min (90-120)
[2019-08-01 04:42] LABS: UREA NITROGEN 11 mg/dL (7-18)
--- NOTE | 2019-08-01 07:10 | NUR ---
REPORT RECIEVED, SHIFT ASSESSMENT COMPLETE, PT IS ALERT AND ORIENTED, ON 2L NC WITH 97% O2 SAT. ALL PPP, VSS, CALL LIGHT IN REACH
--- NOTE | 2019-08-01 09:46 | NUR ---
REPORT CALLED TO [facility], PT TRANSFERRED VIA WHEELCHAIR, TOLERATED WELL
--- NOTE | 2019-08-01 09:54 | NUR ---
PATIENT ADMITTED TO ROOM 2210. REQUESTED AND GIVEN ICE WATER. DENIES FURTHER NEEDS. BED LOW. CALL FERMIN AND PERSONAL ITEMS IN REACH. WILL CONTINUE TO MONITOR.
--- NOTE | 2019-08-01 11:47 | NUR ---
PATIENT STATES IV TO LEFT AC SL HURTING AND WANTS TO BE RESITED. FLUSHED, NO BLOOD RETURNED. IV REMOVED FROM LEFT AC WITH TIP INTACT. ATTEMPTED TO RESITE PATIENT TWICE WITH 22 GAUGE IN RFA WITHOUT SUCCESS. SECOND NURSE WILL ATTEMPT.
--- NOTE | 2019-08-01 12:28 | NUR ---
IV SITED TO [facility].
[2019-08-01 13:48] VITALS: BP 142/78
[2019-08-01 17:33] VITALS: BP 152/86
--- NOTE | 2019-08-01 19:25 | MORECARE ---
CASE MANAGEMENT DISCHARGE SUMMARY PATIENT: LANE ONEAL UNIT: [id number] ADM DATE: 07/30/19 AGE: 59 : 62 SEX: F ROOM/BED: D.2210 AUTHOR: MERA,DOC PHYSICIAN: REFERRING PHYSICIAN: GARY SHEEHAN MD DATE OF SERVICE: 08/01/19 Discharge Plan Patient Name: LANE ONEAL Facility: [facility]:[place] : 1960 Planned Disposition: Home Anticipated Discharge Date: 08/02/19 Discharge Date: Expected LOS: 3 Initial Reviewer: [email or web address] Initial Review Date: 07/31/2019 Generated: 08/01/19 8:25 pm Comments DCP- Discharge Planning Updated by [email or web address]: Uma Delgado on 08/01/19 6:[address] CM spoke with Pamela @ [facility] about getting DuoNeb . Rx completed and signed by Dr. Owen and faxed back to Pamela. Dr. Owen wants Trilogy increased to 5L and he asked if they a had a "Y" connector because the patient is having problems with switching from NC to trilogy. Pamela stated that the patient would need testing to increase 02 on Trilogy and she stated that she would send a Resp. Therapist to see patient in am. Pamela will call CM in am. DCP- Discharge Planning Updated by [email or web address]: Mary Moreno on 07/31/19 3:[address] CM spoke with Jim at [facility] per Dr. Owen's request to see if the Trilogy is working. Jim stated the Trilogy is working, but their most recent overnight pulse ox showed the oxygen needed to be increased. Jim faxed copy of test results and CM reviewed findings of test result with Dr. Owen, copy on chart. CM informed Dr. Owen that [facility] did not admit patient upon last hospital DC, and that patient reported problems getting her updraft medication filled due to cost. Dr. Owen asked CM to make sure patient is getting her updraft medication through the DME and billed to her part B insurance instead of getting it through a pharmacy through her Rx plan. ERON called Jim with [facility] to see if they have been providing the updraft medications to the patient. Jim stated they have not. Jim will fax paperwork for Dr. Owen to sign to arrange for DME to provide updraft medications. DCP- Discharge Planning Updated by [id number]: Mary Moreno on 07/31/19 12:[address] Patient Name: LANE ONEAL Admission Status: ER Accout number: [id number] Admission Date: 07-30-2019 : 1960 Admission Diagnosis: Attending: GARY SHEEHAN Current LOS: 1 Anticipated DC Date: 08-02-2019 Planned Disposition: Home Primary Insurance: [facility] MEDICARE SOLUTIONS Discharge Planning Comments: CM met with patient to discuss discharge planning / needs. Patient states she lives at home with her mom who has early onset dementia. States she has a daughter that lives out of town and a daughter that lives out of state. States she plans to return home upon hospital DC. States home environment is safe. [facility] home health did not ever call her or come see her after last hospital DC. Also states she is unable to get one of her nebulizer medications filled because she can't afford it. States it cost ~ $400.00 with her prescription insurance. ERON called [facility] to find out why they didn't see her upon last hospital DC. ERON was told that [facility] discharged patient 07/05/19. Didn't know anything about a referral being sent to them at discharge. Will have someone call me back. CM will continue to follow and assist as needed with discharge planning / needs. Pickling Solution Maker: Mary Moreno DCPIA - Discharge Planning Initial Assessment Updated by [id number]: Mary Moreno on 07/31/19 1:18 pm * Is the patient Alert and Oriented? Yes * How many steps to enter\\exit or inside your home? * PCP Trev * Pharmacy [facility] on [facility] * Preadmission Environment Home with Family * ADLs Independent * Equipment Nebulizer Oxygen * Other Equipment Trilogy, portable oxygen * List name and contact numbers for known caregivers / representatives who currently or will assist patient after discharge: Nadia Lin, Mom, Tete Salcedo, Daughter, * Verbal permission to speak to the caregivers and representatives has been obtained from the patient. Yes * Community resources currently utilized None * Please name any agencies selected above. [facility] provides: Nebulizer, Trilogy, Home & Portable Oxygen. * Additional services required to return to the preadmission environment? No * Can the patient safely return to the preadmission environment? Yes * Has this patient been hospitalized within the prior 30 days at any hospital? Yes Last DP export: 07/31/19 3:31 p Patient Name: LANE ONEAL Page 14777 at 192 All edits/amendments must be made on the electronic document DICTATION DATE: 08/01/191924 MICRO COMPUTER DATA PROCESSOR: TAISHA 08/01/191924 RPT#: [id number] DC DATE: STATUS: ADM IN [facility] [address] [place] [address] END OF REPORT
[2019-08-01 20:00] VITALS: BP 137/75
[2019-08-02 04:00] VITALS: BP 143/81
[2019-08-02 04:35] LABS: HEMATOCRIT 42.9 % (36.0-48.0); HEMOGLOBIN 13.1 g/dL (12-16); MCH 29.9 pg (26.0-34.0); MCHC 30.5 g/dL (31.0-37.0); MCV 97.9 fL (80.0-100.0); MEAN PLATELET VOLUME 9.8 fL (7.4-10.4); PLATELET COUNT 202 10x3/uL (130-400); RBC 4.38 10x6/uL (4.00-5.40); RDW 12.9 % (11.5-14.5); WBC 2.9 10x3/uL (4.8-10.8)
[2019-08-02 05:12] LABS: ALBUMIN 2.9 g/dL (3.4-5.0); ALKALINE PHOSPHATASE 59 U/L (30-120); ALT (SGPT) 17 U/L (10-68); BILIRUBIN - TOTAL 0.36 mg/dL (0.2-1.3); CALCIUM 8.7 mg/dL (8.5-10.1); CARBON DIOXIDE 35.8 mmol/L (21.0-32.0); CHLORIDE - SERUM 97 mmol/L (98-107); GLUCOSE 192 mg/dL (74-106); POTASSIUM - SERUM 4.2 mmol/L (3.5-5.1); PROTEIN - SERUM 5.9 g/dL (6.4-8.2); SODIUM 136 mmol/L (136-145); eGFR NON AFRICAN AMERICAN 78 mL/min (90-120)
[2019-08-02 05:22] LABS: CALC OSMOLALITY 277 mosm/kg (275-300); CREATININE - SERUM 0.8 mg/dL (0.6-1.3); UREA NITROGEN 14 mg/dL (7-18)
[2019-08-02 05:29] LABS: LYMPHOCYTES 24 % (15-50); MONOCYTES 1 % (2-11); NEUTROPHILS 74 % (40-80); PLATELET ESTIMATE DECREASED
--- NOTE | 2019-08-02 08:17 | NUR ---
SHE IS ALERT,TALKING. WEARING 3 LITERS OF O2.
[2019-08-02 09:31] VITALS: BP 153/77
--- NOTE | 2019-08-02 09:54 | MORECARE ---
CASE MANAGEMENT DISCHARGE SUMMARY PATIENT: LANE ONEAL UNIT: [id number] ADM DATE: 07/30/19 AGE: 59 : 62 SEX: F ROOM/BED: D.2217 AUTHOR: MERA,DOC PHYSICIAN: REFERRING PHYSICIAN: GARY SHEEHAN MD DATE OF SERVICE: 08/02/19 Discharge Plan Patient Name: LANE ONEAL Facility: [facility]:[place] : 1960 Planned Disposition: Home Anticipated Discharge Date: 08/02/19 Discharge Date: Expected LOS: 3 Initial Reviewer: [email or web address] Initial Review Date: 07/31/2019 Generated: 08/02/19 10:53 am Comments DCP- Discharge Planning Updated by [email or web address]: Palak White on 08/02/19 8:[address] KETTY CALLED AND STATED THAT A RT WILL BE COMING TO HOSPITAL TO LOOK AND HELP WITH PATIENTS TRILIOGY DCP- Discharge Planning Updated by [id number]: Uma Delgado on 08/01/19 6:[address] CM spoke with Pamela @ [facility] about getting DuoNeb . Rx completed and signed by Dr. Owen and faxed back to Pamela. Dr. Owen wants Trilogy increased to 5L and he asked if they a had a "Y" connector because the patient is having problems with switching from NC to trilogy. Pamela stated that the patient would need testing to increase 02 on Trilogy and she stated that she would send a Resp. Therapist to see patient in am. Pamela will call CM in am. DCP- Discharge Planning Updated by [email or web address]: Mary Moreno on 07/31/19 3:[address] CM spoke with Ketty at [facility] per Dr. Owen's request to see if the Trilogy is working. Ketty stated the Trilogy is working, but their most recent overnight pulse ox showed the oxygen needed to be increased. Ketty faxed copy of test results and CM reviewed findings of test result with Dr. Owen, copy on chart. CM informed Dr. Owen that [facility] did not admit patient upon last hospital DC, and that patient reported problems getting her updraft medication filled due to cost. Dr. Owen asked ERON to make sure patient is getting her updraft medication through the DME and billed to her part B insurance instead of getting it through a pharmacy through her Rx plan. ERON called Ketty with [facility] to see if they have been providing the updraft medications to the patient. Ketty stated they have not. Ketty will fax paperwork for Dr. Owen to sign to arrange for DME to provide updraft medications. DCP- Discharge Planning Updated by [id number]: Mary Moreno on 07/31/19 12:[address] Patient Name: LANE ONEAL Admission Status: ER Accout number: [id number] Admission Date: 07-30-2019 : 1960 Admission Diagnosis: Attending: GARY SHEEHAN Current LOS: 1 Anticipated DC Date: 08-02-2019 Planned Disposition: Home Primary Insurance: [facility] MEDICARE SOLUTIONS Discharge Planning Comments: CM met with patient to discuss discharge planning / needs. Patient states she lives at home with her mom who has early onset dementia. States she has a daughter that lives out of town and a daughter that lives out of state. States she plans to return home upon hospital DC. States home environment is safe. [facility] home health did not ever call her or come see her after last hospital DC. Also states she is unable to get one of her nebulizer medications filled because she can't afford it. States it cost ~ $400.00 with her prescription insurance. ERON called [facility] to find out why they didn't see her upon last hospital DC. ERON was told that [facility] discharged patient 07/05/19. Didn't know anything about a referral being sent to them at discharge. Will have someone call me back. ERON will continue to follow and assist as needed with discharge planning / needs. Merchandise Complaint Adjuster: Mary Moreno DCPIA - Discharge Planning Initial Assessment Updated by [email or web address]: Mary Moreno on 07/31/19 1:18 pm * Is the patient Alert and Oriented? Yes * How many steps to enter\\exit or inside your home? * PCP Trev * Pharmacy [facility] on [facility] * Preadmission Environment Home with Family * ADLs Independent * Equipment Nebulizer Oxygen * Other Equipment Trilogy, portable oxygen * List name and contact numbers for known caregivers / representatives who currently or will assist patient after discharge: Nadia Lin, Mom, Tete Salcedo, Daughter, * Verbal permission to speak to the caregivers and representatives has been obtained from the patient. Yes * Community resources currently utilized None * Please name any agencies selected above. [facility] provides: Nebulizer, Trilogy, Home & Portable Oxygen. * Additional services required to return to the preadmission environment? No * Can the patient safely return to the preadmission environment? Yes * Has this patient been hospitalized within the prior 30 days at any hospital? Yes Last DP export: 08/01/19 6:25 p Patient Name: LANE ONEAL Page [id number] at 0954 All edits/amendments must be made on the electronic document DICTATION DATE: 08/02/19952 WARPER CREELER: TAISHA 08/02/1952 RPT#: [id number] DC DATE: STATUS: ADM IN [facility] [address] [place] [address] END OF REPORT
[2019-08-02 13:29] VITALS: BP 150/72
[2019-08-02 17:50] VITALS: BP 154/86
[2019-08-02 20:00] VITALS: BP 119/67
[2019-08-03] VITALS: BP 125/60
--- NOTE | 2019-08-03 03:43 | NUR ---
PT RESTING IN BED. EYES CLOSED. NO SIGNS OF DISTRESS. BREATHING EVEN AND UNLABORED. BIPAP ON AT THIS TIME. IV SITE RT FA DRESSING CLEAN DRY AND INTACT. NO SIGNS OF INFECTION OR INFULTRATION. SKIN CLEAN DRY AND INTACT. BOWEL SOUNDS ACTIVE. NO LOWER LEG SWELLING PRESENT. WILL CONTINUE PLAN OF CARE. CALL LIGHT IN REACH. BED LOWERED AND LOCKED. BED RAILS UPX2.
[2019-08-03 04:00] VITALS: BP 122/75
--- NOTE | 2019-08-03 04:01 | NUR ---
I have reviewed this patient and I concur with the Shift Assessment completed by the Licensed Practical Nurse today this shift.
[2019-08-03 04:36] LABS: BASOPHILS 0 % (0-2); EOSINOPHILS 0 % (0-7); HEMATOCRIT 43.4 % (36.0-48.0); HEMOGLOBIN 13.2 g/dL (12-16); LYMPHOCYTES 13.2 % (15-50); MCH 29.5 pg (26.0-34.0); MCHC 30.4 g/dL (31.0-37.0); MCV 97.1 fL (80.0-100.0); MEAN PLATELET VOLUME 9.4 fL (7.4-10.4); MONOCYTES 7.6 % (2-11); NEUTROPHILS 79.2 % (40-80); PLATELET COUNT 189 10x3/uL (130-400); RBC 4.47 10x6/uL (4.00-5.40); RDW 12.8 % (11.5-14.5)
[2019-08-03 05:12] LABS: ALBUMIN 2.9 g/dL (3.4-5.0); ALKALINE PHOSPHATASE 55 U/L (30-120); ALT (SGPT) 21 U/L (10-68); BILIRUBIN - TOTAL 0.48 mg/dL (0.2-1.3); CALC OSMOLALITY 278 mosm/kg (275-300); CALCIUM 8.6 mg/dL (8.5-10.1); CARBON DIOXIDE 35.5 mmol/L (21.0-32.0); CHLORIDE - SERUM 98 mmol/L (98-107); CREATININE - SERUM 0.7 mg/dL (0.6-1.3); GLUCOSE 163 mg/dL (74-106); POTASSIUM - SERUM 4.6 mmol/L (3.5-5.1); PROTEIN - SERUM 5.8 g/dL (6.4-8.2); SODIUM 137 mmol/L (136-145); UREA NITROGEN 15 mg/dL (7-18); eGFR NON AFRICAN AMERICAN > 90 mL/min (90-120)
[2019-08-03 07:59] VITALS: BP 136/89
--- NOTE | 2019-08-03 08:06 | NUR ---
PT SITTING UP IN BED HAVING BREATHING TREATMENT. NO S/SX OF DISTRESS, LUNGS SOUNDS DIMINISHED, IV IN RT FA SL, PATENT, NO NEEDS VOICED, ASSUME PT CARE
--- NOTE | 2019-08-03 09:40 | NUR ---
I have reviewed this patient and I concur with the Shift Assessment completed by the Licensed Practical Nurse today this shift.
--- NOTE | 2019-08-03 10:36 | NUR ---
PT C/O PAIN IN BACK AT AN 8, ADMINISTERED PRN PAIN MEDICATION, NO OTHER NEEDS VOICED AT THIS TIME, CL IN REACH CONTINUE WITH PLAN OF CARE
--- NOTE | 2019-08-03 11:50 | NUR ---
SPOKE TO DR BEGUM IN REGARDS TO PT DC. PER DR BEGUM PT MAY BE DC FROM PULMONARY STANDPOINT. WILL NEED 4WK FOLLOW UP AND 6MIN WALK TEST AND PFTS SCHEDULED WELL. PENDING HOSPITALIST FOR DC ORDERS. ORDERS AND CAREPLAN UPON DC FOR PULMONARY IN PROGRESS NOTES FROM YESTERDAY. NO OTHER NEEDS AT THIS TIME. CONTINUE WITH PLAN OF CARE
[2019-08-03 12:02] VITALS: BP 137/79
[2019-08-03] MEDS ORDERED: ZITHROMAX250 MG PO (13:27)
[2019-08-03] MEDS ORDERED: SYMBICORT 16010.2 GM INH (13:28)
[2019-08-03] MEDS ORDERED: OMNICEF300 MG PO (13:28)
--- NOTE | 2019-08-03 14:44 | MORECARE ---
CASE MANAGEMENT DISCHARGE SUMMARY PATIENT: LANE ONEAL UNIT: [id number] ADM DATE: 07/30/19 AGE: 59 : 62 SEX: F ROOM/BED: D.2217 AUTHOR: MERA,DOC PHYSICIAN: REFERRING PHYSICIAN: GARY SHEEHAN MD DATE OF SERVICE: 08/03/19 Discharge Plan Patient Name: LANE ONEAL Facility: [facility]:[place] : 1960 Planned Disposition: Home Anticipated Discharge Date: 08/02/19 Discharge Date: Expected LOS: 3 Initial Reviewer: [id number] Initial Review Date: 07/31/2019 Generated: 08/03/19 3:43 pm Comments DCP- Discharge Planning Updated by [id number]: Palak White on 08/03/19 1:[address] PATIENT WILL BE DISCHARGING HOME TODAY, HER DAUGHTER WILL BE HER [employer] HOME. SHE SAID THAT SHE WILL CALL [facility] WHEN SHE GETS HOME SO THEY CAN FIX HER TRILIOGY WITH SPLITTER. [facility] AND SHE SAID THAT THEY WILL MEET HER AT HER HOME. HER NEB MEDS SHOULD HAVE BEEN DELIVERED TODAY. A PORTABLE TANK WAS BROUGHT UP HERE TO THE HOSPITAL FOR HER TO GO HOME. [facility] WILL ASSUME CARE, I SPOKE WITH SUSAN THEY WILL START CARE THIS WEEKEND. IMM SERVED AND EXPLAINED CM TO FOLLOW AND ASSIST WITH DC PLANNING NEEDED DCP- Discharge Planning Updated by [id number]: Palak White on 08/02/19 8:[address] KETTY CALLED AND STATED THAT A RT WILL BE COMING TO HOSPITAL TO LOOK AND HELP WITH PATIENTS TRILIOGY DCP- Discharge Planning Updated by [id number]: Uma Delgado on 08/01/19 6:[address] CM spoke with Pamela @ [facility] about getting DuoNeb . Rx completed and signed by Dr. Owen and faxed back to Pamela. Dr. Owen wants Trilogy increased to 5L and he asked if they a had a "Y" connector because the patient is having problems with switching from NC to trilogy. Pamela stated that the patient would need testing to increase 02 on Trilogy and she stated that she would send a Resp. Therapist to see patient in am. Pamela will call CM in am. DCP- Discharge Planning Updated by [id number]: Mary Moreno on 07/31/19 3:[address] CM spoke with Ketty at [facility] per Dr. Owen's request to see if the Trilogy is working. Ketty stated the Trilogy is working, but their most recent overnight pulse ox showed the oxygen needed to be increased. Ketty faxed copy of test results and CM reviewed findings of test result with Dr. Owen, copy on chart. ERON informed Dr. Owen that [facility] did not admit patient upon last hospital DC, and that patient reported problems getting her updraft medication filled due to cost. Dr. Owen asked CM to make sure patient is getting her updraft medication through the DME and billed to her part B insurance instead of getting it through a pharmacy through her Rx plan. [facility] to see if they have been providing the updraft medications to the patient. Ketty stated they have not. Ketty will fax paperwork for Dr. Owen to sign to arrange for DME to provide updraft medications. DCP- Discharge Planning Updated by [email or web address]: Mary Moreno on 07/31/19 12:[address] Patient Name: LANE ONEAL Admission Status: ER Accout number: [id number] Admission Date: 07-30-2019 : 1960 Admission Diagnosis: Attending: GARY SHEEHAN Current LOS: 1 Anticipated DC Date: 08-02-2019 Planned Disposition: Home Primary Insurance: [facility] MEDICARE SOLUTIONS Discharge Planning Comments: CM met with patient to discuss discharge planning / needs. Patient states she lives at home with her mom who has early onset dementia. States she has a daughter that lives out of town and a daughter that lives out of state. States she plans to return home upon hospital DC. States home environment is safe. [facility] did not ever call her or come see her after last hospital DC. Also states she is unable to get one of her nebulizer medications filled because she can't afford it. States it cost ~ $400.00 with her prescription insurance. ERON called [facility] to find out why they didn't see her upon last hospital DC. ERON was told that [facility] discharged patient 07/05/19. Didn't know anything about a referral being sent to them at discharge. Will have someone call me back. CM will continue to follow and assist as needed with discharge planning / needs. Search Engine Marketing Manager: Mary Moreno DCPIA - Discharge Planning Initial Assessment Updated by [email or web address]: Mary Moreno on 07/31/19 1:18 pm * Is the patient Alert and Oriented? Yes * How many steps to enter\\exit or inside your home? * PCP Trev * Pharmacy [facility] on [facility] * Preadmission Environment Home with Family * ADLs Independent * Equipment Nebulizer Oxygen * Other Equipment Trilogy, portable oxygen * List name and contact numbers for known caregivers / representatives who currently or will assist patient after discharge: Nadia Lin, Mom, Tete Salcedo, Daughter, * Verbal permission to speak to the caregivers and representatives has been obtained from the patient. Yes * Community resources currently utilized None * Please name any agencies selected above. [facility] provides: Nebulizer, Trilogy, Home & Portable Oxygen. * Additional services required to return to the preadmission environment? No * Can the patient safely return to the preadmission environment? Yes * Has this patient been hospitalized within the prior 30 days at any hospital? Yes Last DP export: 08/02/19 8:54 a Patient Name: LANE ONEAL Page 57477 at 1444 All edits/amendments must be made on the electronic document DICTATION DATE: 08/03/191442 ARTIST WOODBLOCK: TAISHA 08/03/191442 RPT#: [id number] DC DATE: STATUS: ADM IN [facility] [address] [place] [address] END OF REPORT
--- NOTE | 2019-08-03 14:51 | MORECARE ---
CASE MANAGEMENT DISCHARGE SUMMARY PATIENT: LANE ONEAL UNIT: [id number] ADM DATE: 07/30/19 AGE: 59 : 62 SEX: F ROOM/BED: D.2217 AUTHOR: MERA,DOC PHYSICIAN: REFERRING PHYSICIAN: GARY SHEEHAN MD DATE OF SERVICE: 08/03/19 Discharge Plan Patient Name: LANE ONEAL Facility: [facility]:[place] : 1960 Planned Disposition: Home Anticipated Discharge Date: 08/02/19 Discharge Date: Expected LOS: 3 Initial Reviewer: [email or web address] Initial Review Date: 07/31/2019 Generated: 08/03/19 3:51 pm Comments DCP- Discharge Planning Updated by [id number]: Palak White on 08/03/19 1:[address] PATIENT WILL BE DISCHARGING HOME TODAY, HER DAUGHTER WILL BE HER RN [employer]ICAL [employer] HOME. SHE SAID THAT SHE WILL CALL [facility] WHEN SHE GETS HOME SO THEY CAN FIX HER TRILIOGY WITH SPLITTER. [facility] AND SHE SAID THAT THEY WILL MEET HER AT HER HOME. HER NEB MEDS SHOULD HAVE BEEN DELIVERED TODAY. A PORTABLE TANK WAS BROUGHT UP HERE TO THE HOSPITAL FOR HER TO GO HOME. [facility] WILL ASSUME CARE, I SPOKE WITH SUSAN THEY WILL START CARE THIS WEEKEND. IMM SERVED AND EXPLAINED CM TO FOLLOW AND ASSIST WITH DC PLANNING NEEDED DCP- Discharge Planning Updated by [email or web address]: Palak White on 08/02/19 8:[address] KETTY CALLED AND STATED THAT A RT WILL BE COMING TO HOSPITAL TO LOOK AND HELP WITH PATIENTS TRILIOGY DCP- Discharge Planning Updated by [email or web address]: Uma Delgado on 08/01/19 6:[address] CM spoke with Pamela @ [facility] about getting DuoNeb . Rx completed and signed by Dr. Owen and faxed back to Pamela. Dr. Owen wants Trilogy increased to 5L and he asked if they a had a "Y" connector because the patient is having problems with switching from NC to trilogy. Pamela stated that the patient would need testing to increase 02 on Trilogy and she stated that she would send a Resp. Therapist to see patient in am. Pamela will call CM in am. DCP- Discharge Planning Updated by [id number]: Mary Moreno on 07/31/19 3:[address] CM spoke with Ketty at [facility] per Dr. Owen's request to see if the Trilogy is working. Ketty stated the Trilogy is working, but their most recent overnight pulse ox showed the oxygen needed to be increased. Ketty faxed copy of test results and CM reviewed findings of test result with Dr. Owen, copy on chart. ERON informed Dr. Owen that [facility] did not admit patient upon last hospital DC, and that patient reported problems getting her updraft medication filled due to cost. Dr. Owen asked CM to make sure patient is getting her updraft medication through the DME and billed to her part B insurance instead of getting it through a pharmacy through her Rx plan. ERON [facility] with [facility] to see if they have been providing the updraft medications to the patient. Ketty stated they have not. Ketty will fax paperwork for Dr. Owen to sign to arrange for DME to provide updraft medications. DCP- Discharge Planning Updated by [id number]: Mary Moreno on 07/31/19 12:[address] Patient Name: LANE ONEAL Admission Status: ER Accout number: [id number] Admission Date: 07-30-2019 : 1960 Admission Diagnosis: Attending: GARY SHEEHAN Current LOS: 1 Anticipated DC Date: 08-02-2019 Planned Disposition: Home Primary Insurance: [facility] MEDICARE SOLUTIONS Discharge Planning Comments: CM met with patient to discuss discharge planning / needs. Patient states she lives at home with her mom who has early onset dementia. States she has a daughter that lives out of town and a daughter that lives out of state. States she plans to return home upon hospital DC. States home environment is safe. [facility] did not ever call her or come see her after last hospital DC. Also states she is unable to get one of her nebulizer medications filled because she can't afford it. States it cost ~ $400.00 with her prescription insurance. ERON called [facility] to find out why they didn't see her upon last hospital DC. ERON was told that [facility] discharged patient 07/05/19. Didn't know anything about a referral being sent to them at discharge. Will have someone call me back. CM will continue to follow and assist as needed with discharge planning / needs. Vacuum Drier Tender: Mary Moreno DCPIA - Discharge Planning Initial Assessment Updated by [email or web address]: Mary Moreno on 07/31/19 1:18 pm * Is the patient Alert and Oriented? Yes * How many steps to enter\\exit or inside your home? * PCP Trev * Pharmacy [facility] on [facility] * Preadmission Environment Home with Family * ADLs Independent * Equipment Nebulizer Oxygen * Other Equipment Trilogy, portable oxygen * List name and contact numbers for known caregivers / representatives who currently or will assist patient after discharge: Nadia Lin, Mom, Tete Salcedo, Daughter, * Verbal permission to speak to the caregivers and representatives has been obtained from the patient. Yes * Community resources currently utilized None * Please name any agencies selected above. [facility] provides: Nebulizer, Trilogy, Home & Portable Oxygen. * Additional services required to return to the preadmission environment? No * Can the patient safely return to the preadmission environment? Yes * Has this patient been hospitalized within the prior 30 days at any hospital? Yes External Providers External Provider: [facility] Next Contact Date: Service Request Date: Service Type: Resolution: Reviewer: Comments: Last DP export: 08/03/19 1:44 pm Patient Name: LANE ONEAL Page [phone] at 1451 All edits/amendments must be made on the electronic document DICTATION DATE: 08/03/19 1451 COP BREAKER: TAISHA 08/03/19 1451 RPT#: [id number] DC DATE: STATUS: ADM IN [facility] [address] [place] [address] END OF REPORT
--- NOTE | 2019-08-03 15:32 | NUR ---
WENT OVER DC INSTRUCTIONS AND FOLLOW UP APPOINTMENTS WITH PT. ALL QUESTIOINS ANSWERED, PT IV DC WITH CATHETER INTACT, PT TAKEN DOWN TO FRONT LOBBY VIA W/C BY DIRECTOR DRUG SAFETY.
--- NOTE | 2019-08-05 10:22 | MORECARE ---
CASE MANAGEMENT DISCHARGE SUMMARY PATIENT: LANE ONEAL UNIT: [id number] ADM DATE: 07/30/19 AGE: 59 : 62 SEX: F ROOM/BED: D.2217 AUTHOR: MERA,DOC PHYSICIAN: REFERRING PHYSICIAN: GARY KARIMI MD DATE OF SERVICE: 08/05/19 Discharge Plan Patient Name: LANE ONEAL Facility: [facility]:[place] : 1960 Planned Disposition: Home Anticipated Discharge Date: 08/02/19 Discharge Date: 08/03/2019 Expected LOS: 3 Initial Reviewer: [email or web address] Initial Review Date: 07/31/2019 Generated: 08/05/19 11:21 am Comments DCP- Discharge Planning Updated by [email or web address]: Palak White on 08/03/19 1:[address] PATIENT WILL BE DISCHARGING HOME TODAY, HER DAUGHTER WILL BE HER PUBLIC AFFAIRS MANAGER HOME. SHE SAID THAT SHE WILL CALL [facility] WHEN SHE GETS HOME SO THEY CAN FIX HER TRILIOGY WITH SPLITTER. I NOTIFIED KETTY WITH [facility] AND SHE SAID THAT THEY WILL MEET HER AT HER HOME. HER NEB MEDS SHOULD HAVE BEEN DELIVERED TODAY. A PORTABLE TANK WAS BROUGHT UP HERE TO THE HOSPITAL FOR HER TO GO HOME. [facility] WILL ASSUME CARE, I SPOKE WITH SUSAN THEY WILL START CARE THIS WEEKEND. IMM SERVED AND EXPLAINED CM TO FOLLOW AND ASSIST WITH DC PLANNING NEEDED DCP- Discharge Planning Updated by [id number]: Palak White on 08/02/19 8:[address] KETTY CALLED AND STATED THAT A RT WILL BE COMING TO HOSPITAL TO LOOK AND HELP WITH PATIENTS TRILIOGY DCP- Discharge Planning Updated by [email or web address]: Uma Delgado on 08/01/19 6:[address] CM spoke with Pamela @ [facility] about getting DuoNeb . Rx completed and signed by Dr. Owen and faxed back to Pamela. Dr. Owen wants Trilogy increased to 5L and he asked if they a had a "Y" connector because the patient is having problems with switching from NC to trilogy. Pamela stated that the patient would need testing to increase 02 on Trilogy and she stated that she would send a Resp. Therapist to see patient in am. Pamela will call CM in am. DCP- Discharge Planning Updated by [id number]: Mary Josh on 07/31/19 3:[address] CM spoke with Ketty at [facility] per Dr. Owen's request to see if the Trilogy is working. Ketty stated the Trilogy is working, but their most recent overnight pulse ox showed the oxygen needed to be increased. Ketty faxed copy of test results and CM reviewed findings of test result with Dr. Owen, copy on chart. ERON informed Dr. Owen that [facility] did not admit patient upon last hospital DC, and that patient reported problems getting her updraft medication filled due to cost. Dr. Owen asked CM to make sure patient is getting her updraft medication through the DME and billed to her part B insurance instead of getting it through a pharmacy through her Rx plan. ERON called Ketty with [facility] to see if they have been providing the updraft medications to the patient. Ketty stated they have not. Ketty will fax paperwork for Dr. Owen to sign to arrange for DME to provide updraft medications. DCP- Discharge Planning Updated by [id number]: Mary Josh on 07/31/19 12:[address] Patient Name: LANE ONEAL Admission Status: ER Accout number: [id number] Admission Date: 07-30-2019 : 1960 Admission Diagnosis: Attending: GARY KARIMI Current LOS: 1 Anticipated DC Date: 08-02-2019 Planned Disposition: Home Primary Insurance: [facility] MEDICARE SOLUTIONS Discharge Planning Comments: CM met with patient to discuss discharge planning / needs. Patient states she lives at home with her mom who has early onset dementia. States she has a daughter that lives out of town and a daughter that lives out of state. States she plans to return home upon hospital DC. States home environment is safe. [facility] did not ever call her or come see her after last hospital DC. Also states she is unable to get one of her nebulizer medications filled because she can't afford it. States it cost ~ $400.00 with her prescription insurance. ERON called [facility] to find out why they didn't see her upon last hospital DC. ERON was told that [facility] discharged patient 4/2/20. Didn't know anything about a referral being sent to them at discharge. Will have someone call me back. CM will continue to follow and assist as needed with discharge planning / needs. Instructional Coach: Mary BURNETTA - Discharge Planning Initial Assessment Updated by [id number]: Mary Moreno on 07/31/19 1:18 pm * Is the patient Alert and Oriented? Yes * How many steps to enter\\exit or inside your home? * PCP Karimi * Pharmacy [facility] on [facility] [facility] * Preadmission Environment Home with Family * ADLs Independent * Equipment Nebulizer Oxygen * Other Equipment Trilogy, portable oxygen * List name and contact numbers for known caregivers / representatives who currently or will assist patient after discharge: Nadia Lin, Mom, Tete Salcedo, Daughter, * Verbal permission to speak to the caregivers and representatives has been obtained from the patient. Yes * Community resources currently utilized None * Please name any agencies selected above. [facility] provides: Nebulizer, Trilogy, Home & Portable Oxygen. * Additional services required to return to the preadmission environment? No * Can the patient safely return to the preadmission environment? Yes * Has this patient been hospitalized within the prior 30 days at any hospital? Yes Coverage Notice Reviewer: [id number] Elysia White Notice Issued Date-Time: 08/03/2019 14:30 Notice Type: IM Discharge Notice Notice Delivered To: Patient Relationship to Patient: Custodian Manager Name: Delivery Method: HAND - Hand Delivered Makenzie Days: Prior Verbal Notification: Recipient Understood Notice: Yes Recipient Signature: Yes Med Rec Note Co-signed by Attending: Coverage Notice Comment: Last DP export: 08/03/19 1:51 pm Patient Name: LANE ONEAL Page [phone] at 1022 All edits/amendments must be made on the electronic document DICTATION DATE: 08/05/19 1021 RESEARCH ADVISOR: TAISHA 08/05/19 1021 RPT#: [id number] DC DATE:08/03/19 STATUS: DIS IN [facility] [address] [place] [address] END OF REPORT
== END 2019-08-03 15:57 | disposition home health service (06) | DRG 189 ==
LOC: D.ER 14:07 → D.ICU 17:05 → D.MS 17:05 → D.ICU 18:18 → D.MS 08-01 09:47
PROVIDERS: Family Medicine; Internal Medicine Pulmonary Disease; ADMIT Family Medicine; ATTEND Family Medicine
PROC: 5A09557 Assistance with Respiratory Ventilation, Greater than 96 Consecutive Hours, Continuous Positive Airway Pressure (ICD-10-PCS; principal; 2019-07-31)
DX: J96.21 Acute and chronic respiratory failure with hypoxia (principal); J44.0 Chronic obstructive pulmonary disease with (acute) lower respiratory infection; J44.1 Chronic obstructive pulmonary disease with (acute) exacerbation; E44.0 Moderate protein-calorie malnutrition; I50.32 Chronic diastolic (congestive) heart failure; J20.9 Acute bronchitis, unspecified; Z68.22 Body mass index [BMI] 22.0-22.9, adult; I11.0 Hypertensive heart disease with heart failure; I48.91 Unspecified atrial fibrillation; K21.9 Gastro-esophageal reflux disease without esophagitis; J96.22 Acute and chronic respiratory failure with hypercapnia; K74.60 Unspecified cirrhosis of liver; F41.9 Anxiety disorder, unspecified

== ENCOUNTER → 2019-09-05 14:45 | Outpatient (CLI) | payer MEDICARE, MEDICAID ==
[2019-07-31 09:59] VITALS: BMI 22.3
[2019-09-05 15:59] LABS: BASOPHILS 0.2 % (0-2); EOSINOPHILS 0.6 % (0-7); HEMATOCRIT 49.5 % (36.0-48.0); HEMOGLOBIN 14.1 g/dL (12-16); IMMATURE GRANULOCYTES 0.3 % (0-5); LYMPHOCYTES 18.3 % (15-50); MCH 30.5 pg (26.0-34.0); MCHC 28.5 g/dL (31.0-37.0); MCV 107.1 fL (80.0-100.0); MEAN PLATELET VOLUME 9.3 fL (7.4-10.4); MONOCYTES 9.4 % (2-11); NEUTROPHILS 71.2 % (40-80); PLATELET COUNT 165 10x3/uL (130-400); RBC 4.62 10x6/uL (4.00-5.40); RDW 13.3 % (11.5-14.5); WBC 6.6 10x3/uL (4.8-10.8)
[2019-09-05 16:16] LABS: ALBUMIN 3.1 g/dL (3.4-5.0); ALKALINE PHOSPHATASE 76 U/L (30-120); ALT (SGPT) 23 U/L (10-68); BILIRUBIN - TOTAL 0.48 mg/dL (0.2-1.3); CALCIUM 9.1 mg/dL (8.5-10.1); CHLORIDE - SERUM 99 mmol/L (98-107); CREATININE - SERUM 0.7 mg/dL (0.6-1.3); POTASSIUM - SERUM 3.6 mmol/L (3.5-5.1); PROTEIN - SERUM 6.5 g/dL (6.4-8.2); SODIUM 140 mmol/L (136-145); UREA NITROGEN 7 mg/dL (7-18); eGFR NON AFRICAN AMERICAN > 90 mL/min (90-120)
[2019-09-05 16:18] LABS: CALC OSMOLALITY 277 mosm/kg (275-300); GLUCOSE 108 mg/dL (74-106)
[2019-09-05 16:24] LABS: CARBON DIOXIDE 43.3 mmol/L (21.0-32.0)
== END | disposition home or self-care (01) ==
LOC: D.RAD 14:45
PROVIDERS: ATTEND Internal Medicine Pulmonary Disease
DX: J44.9 Chronic obstructive pulmonary disease, unspecified (principal)

== ENCOUNTER 2019-09-05 18:00 | Inpatient (IN) | payer MEDICARE, MEDICAID ==
[~2019-09-05] VITALS: Ht 157.5 cm; Wt 60.6 kg
--- NOTE | 2019-09-05 19:58 | NUR ---
PATIENT IS A DIRECT ADMIT, SITTING ON HER BED MOTHER AT BEDSIDE, HOOKED HER O2 UP TO THE WALL INSTEAD OF HOME CANISTER. WILL DO ADMIT. CALL LIGHT WITHIN REACH AND BED IN LOWEST LOCKED POSITION. PATIENT SHOWS NO S/SX OF DISTRESS. ASKING FOR PAIN MEDICATIONS.
[2019-09-05] MEDS ORDERED: HYDROCODON-ACE1 EAC7 PO (20:45)
--- NOTE | 2019-09-05 21:30 | NUR ---
TALKED WITH ENRIQUETA ALEX, GAVE NEW ORDERS, WILL PUT THEM IN COMPUTER AND FOLLOW THEM. READ ORDERS BACK TO KATELYNN.
[2019-09-05 23:31] LABS: BASOPHILS 0.1 % (0-2); EOSINOPHILS 0.9 % (0-7); HEMATOCRIT 47.5 % (36.0-48.0); HEMOGLOBIN 13.7 g/dL (12-16); IMMATURE GRANULOCYTES 0.1 % (0-5); LYMPHOCYTES 25.1 % (15-50); MCH 30.7 pg (26.0-34.0); MCHC 28.8 g/dL (31.0-37.0); MCV 106.5 fL (80.0-100.0); MEAN PLATELET VOLUME 9.4 fL (7.4-10.4); MONOCYTES 8.7 % (2-11); NEUTROPHILS 65.1 % (40-80); PLATELET COUNT 151 10x3/uL (130-400); RBC 4.46 10x6/uL (4.00-5.40); RDW 13.2 % (11.5-14.5); WBC 6.7 10x3/uL (4.8-10.8)
[2019-09-05 23:51] LABS: ALBUMIN 2.9 g/dL (3.4-5.0); ALKALINE PHOSPHATASE 71 U/L (30-120); ALT (SGPT) 21 U/L (10-68); BILIRUBIN - TOTAL 0.36 mg/dL (0.2-1.3); CALC OSMOLALITY 283 mosm/kg (275-300); CALCIUM 8.9 mg/dL (8.5-10.1); CHLORIDE - SERUM 101 mmol/L (98-107); CREATININE - SERUM 0.7 mg/dL (0.6-1.3); GLUCOSE 114 mg/dL (74-106); POTASSIUM - SERUM 3.9 mmol/L (3.5-5.1); PRO BNP 63 pg/mL (0-125); PROTEIN - SERUM 6.2 g/dL (6.4-8.2); SODIUM 143 mmol/L (136-145); UREA NITROGEN 8 mg/dL (7-18); eGFR NON AFRICAN AMERICAN > 90 mL/min (90-120)
[2019-09-05 23:54] LABS: CARBON DIOXIDE 44.4 mmol/L (21.0-32.0)
[2019-09-06] VITALS: BP 139/72
[2019-09-06 01:13] VITALS: BP 134/68; BMI 24.8
--- NOTE | 2019-09-06 04:41 | NUR ---
FOUND WRITTEN ORDERS FROM DIRECT ADMITT, ENTERED COMPLETE ORDERS IN THE CHART.
[2019-09-06 05:06] LABS: BASOPHILS 0.1 % (0-2); EOSINOPHILS 0 % (0-7); HEMATOCRIT 48.9 % (36.0-48.0); IMMATURE GRANULOCYTES 0.1 % (0-5); LYMPHOCYTES 5.4 % (15-50); MCH 30.4 pg (26.0-34.0); MCHC 28.6 g/dL (31.0-37.0); MCV 106.3 fL (80.0-100.0); MEAN PLATELET VOLUME 9.7 fL (7.4-10.4); MONOCYTES 1.4 % (2-11); PLATELET COUNT 161 10x3/uL (130-400); WBC 7.6 10x3/uL (4.8-10.8)
[2019-09-06 05:30] LABS: BILIRUBIN - TOTAL 0.33 mg/dL (0.2-1.3); CALCIUM 8.6 mg/dL (8.5-10.1); PROTEIN - SERUM 6.4 g/dL (6.4-8.2)
[2019-09-06 05:32] LABS: CREATININE - SERUM 0.9 mg/dL (0.6-1.3); POTASSIUM - SERUM 4.5 mmol/L (3.5-5.1)
[2019-09-06 05:34] LABS: ANION GAP 2.5 mmol/L (8-16)
--- NOTE | 2019-09-06 05:39 | NUR ---
PATIENT HAS A CRITICAL CO2 AND STILL WILL NOT WEAR BIPAP. HAS NASAL CANNULA ON.
--- NOTE | 2019-09-06 06:01 | NUR ---
PATIENT CALLED FOR PAIN MEDS, AND TO PUT HER BIPAP ON, ASSISTED WITH BOTH.
[2019-09-06 09:37] VITALS: BP 135/69
[2019-09-06 12:00] VITALS: BP 143/75
[2019-09-06 13:58] VITALS: Ht 157.5 cm; Wt 60.6 kg
[2019-09-06 14:00] VITALS: BP 121/67
--- NOTE | 2019-09-06 19:30 | NUR ---
PT IN BED, AAO X 3, RESP EVEN AND UNLABORED. NO DISTRESS NOTED, CL IN REACH, SR UP X 2.
[2019-09-06 20:00] VITALS: BP 135/78
[2019-09-06 22:19] LABS: BILIRUBIN NEGATIVE (NEGATIVE); GLUCOSE 250 mg/dL (NEGATIVE); KETONE NEGATIVE (NEGATIVE); NITRITE NEGATIVE (NEGATIVE); UROBILINOGEN NORMAL (NORMAL)
--- NOTE | 2019-09-07 03:14 | NUR ---
PATIENT C/O PAIN 01/11. ADMINISTERED PRN MORPHINE PER ORDERS. WILL CTM.
[2019-09-07 04:00] VITALS: BP 128/75
[2019-09-07 05:14] LABS: BASOPHILS 0 % (0-2); EOSINOPHILS 0 % (0-7); HEMATOCRIT 43.2 % (36.0-48.0); HEMOGLOBIN 12.5 g/dL (12-16); IMMATURE GRANULOCYTES 0.2 % (0-5); LYMPHOCYTES 5.8 % (15-50); MCH 30.1 pg (26.0-34.0); MCHC 28.9 g/dL (31.0-37.0); MEAN PLATELET VOLUME 9.7 fL (7.4-10.4); MONOCYTES 2.3 % (2-11); NEUTROPHILS 91.7 % (40-80); PLATELET COUNT 172 10x3/uL (130-400); RBC 4.15 10x6/uL (4.00-5.40); RDW 12.9 % (11.5-14.5); WBC 6.2 10x3/uL (4.8-10.8)
[2019-09-07 05:15] LABS: MCV 104.1 fL (80.0-100.0)
[2019-09-07 05:46] LABS: ALKALINE PHOSPHATASE 69 U/L (30-120); ALT (SGPT) 22 U/L (10-68); BILIRUBIN - TOTAL 0.28 mg/dL (0.2-1.3); CALC OSMOLALITY 279 mosm/kg (275-300); CALCIUM 8.8 mg/dL (8.5-10.1); CARBON DIOXIDE 39.4 mmol/L (21.0-32.0); CHLORIDE - SERUM 96 mmol/L (98-107); CREATININE - SERUM 0.8 mg/dL (0.6-1.3); GLUCOSE 220 mg/dL (74-106); POTASSIUM - SERUM 4.2 mmol/L (3.5-5.1); PROTEIN - SERUM 6.4 g/dL (6.4-8.2); SODIUM 136 mmol/L (136-145); eGFR NON AFRICAN AMERICAN 78 mL/min (90-120)
[2019-09-07 05:48] LABS: UREA NITROGEN 14 mg/dL (7-18)
[2019-09-07 08:27] VITALS: BP 143/89
--- NOTE | 2019-09-07 08:56 | NUR ---
PT INSTRUCTED SPUTUM SAMPLE STILL NEEDED. PT REPORTS SHE ONLY HAS OCCASIONAL SCANT SPUTUM AND SHE SWALLOWS THIS. PT FURTHER REPORTS SHE DOES NOT LIKE TO WEAR BIPAP, PREVIOSU SHIFT NURSE REPORTS PT HAS NOT BEEN COMPLIANT WITH BIPAP. O2 SAT 97% ON 5L NC. NO DISTRESS NOTED. WILL COTNINUE TO MONITOR.
[2019-09-07 14:06] VITALS: BP 132/76
--- NOTE | 2019-09-07 19:30 | NUR ---
PT IN BED, AAO X 3, RESP EVEN AND UNLABORED. NO DISTRESS NOTED, CL IN REACH, SR UP X 2.
[2019-09-07 21:12] VITALS: BP 127/79
[2019-09-08 00:09] VITALS: BP 126/75
--- NOTE | 2019-09-08 05:00 | NUR ---
I have reviewed this patient and I concur with the Shift Assessment completed by the Licensed Practical Nurse today this shift.
[2019-09-08 05:07] VITALS: BP 133/81
--- NOTE | 2019-09-08 07:26 | NUR ---
PT AWAKE AND ORIENTED, SITTING UP IN BED WATCHING TELIVISION. C/O OF TEETH PAIN (RECIEVED PAIN MEDICAITON FROM DEVELOPMENTAL SERVICES WORKER) STATES IT DUE TO IRRITATION FROM THE TRIG NERVE AND THAT SHE USUALLY TAKES GAPENTIN FOR IT. WILL CONT. TO MONITOR. NO OTHER COMPLAINTS OR CONCERNS AT THIS TIME. CL IN REACH,SRX2, NO FAMILY AT BEDSIDE.
[2019-09-08 09:44] VITALS: BP 141/87
[2019-09-08 10:12] LABS: BASOPHILS 0 % (0-2); EOSINOPHILS 0 % (0-7); HEMATOCRIT 45.7 % (36.0-48.0); HEMOGLOBIN 13.4 g/dL (12-16); IMMATURE GRANULOCYTES 0.2 % (0-5); LYMPHOCYTES 7.6 % (15-50); MCH 30.2 pg (26.0-34.0); MCHC 29.3 g/dL (31.0-37.0); MCV 103.2 fL (80.0-100.0); MEAN PLATELET VOLUME 9.9 fL (7.4-10.4); MONOCYTES 4.2 % (2-11); PLATELET COUNT 206 10x3/uL (130-400); RBC 4.43 10x6/uL (4.00-5.40); WBC 4.7 10x3/uL (4.8-10.8)
--- NOTE | 2019-09-08 10:12 | NUR ---
PT AWAKE AND ORIENTED, TOOK MEDICATIONS WITHOUT DIFFICULTY. NO COMPLAINTS OR CONCERNS AT THIS TIME. CLIN REACH, SRX2.
[2019-09-08 10:29] LABS: INR 0.89 (0.85-1.17); PROTIME 12.1 SECONDS (11.6-15.0)
[2019-09-08 10:31] LABS: ANION GAP 5.5 mmol/L (8-16); BILIRUBIN - TOTAL 0.37 mg/dL (0.2-1.3); CALCIUM 8.9 mg/dL (8.5-10.1); CARBON DIOXIDE 38.4 mmol/L (21.0-32.0); POTASSIUM - SERUM 3.9 mmol/L (3.5-5.1); PROTEIN - SERUM 6.5 g/dL (6.4-8.2)
[2019-09-08 12:54] VITALS: BP 129/69
[2019-09-08 16:00] VITALS: BP 118/64
--- NOTE | 2019-09-08 17:11 | NUR ---
I have reviewed this patient and I concur with the Shift Assessment completed by the Licensed Practical Nurse today this shift.
--- NOTE | 2019-09-08 19:30 | NUR ---
PT IN BED, AAO X 3, RESP EVEN AND UNLABORED. NO DISTRESS NOTED. CL IN REACH, SR UP X 2.
[2019-09-09] VITALS: BP 126/63
--- NOTE | 2019-09-09 02:05 | NUR ---
I have reviewed this patient and I concur with the Shift Assessment completed by the Licensed Practical Nurse today this shift.
[2019-09-09 04:00] VITALS: BP 158/89
[2019-09-09 05:19] LABS: BASOPHILS 0 % (0-2); EOSINOPHILS 0 % (0-7); HEMATOCRIT 48.5 % (36.0-48.0); HEMOGLOBIN 14.3 g/dL (12-16); IMMATURE GRANULOCYTES 0.6 % (0-5); LYMPHOCYTES 2.7 % (15-50); MCH 30.5 pg (26.0-34.0); MCHC 29.5 g/dL (31.0-37.0); MCV 103.4 fL (80.0-100.0); MEAN PLATELET VOLUME 9.7 fL (7.4-10.4); MONOCYTES 6.8 % (2-11); NEUTROPHILS 89.9 % (40-80); PLATELET COUNT 185 10x3/uL (130-400); RBC 4.69 10x6/uL (4.00-5.40); RDW 13.3 % (11.5-14.5)
[2019-09-09 05:25] LABS: WBC 12.4 10x3/uL (4.8-10.8)
[2019-09-09 05:40] LABS: ALBUMIN 3.4 g/dL (3.4-5.0); BILIRUBIN - TOTAL 1.29 mg/dL (0.2-1.3); CALCIUM 8.9 mg/dL (8.5-10.1); CARBON DIOXIDE 39.7 mmol/L (21.0-32.0); CREATININE - SERUM 0.9 mg/dL (0.6-1.3)
[2019-09-09 05:41] LABS: POTASSIUM - SERUM 4.7 mmol/L (3.5-5.1)
[2019-09-09 05:55] LABS: BASOPHILS 0 % (0-2); EOSINOPHILS 0 % (0-7); HEMATOCRIT 47.5 % (36.0-48.0); HEMOGLOBIN 14.2 g/dL (12-16); IMMATURE GRANULOCYTES 0.9 % (0-5); LYMPHOCYTES 3.4 % (15-50); MCH 30.7 pg (26.0-34.0); MCHC 29.9 g/dL (31.0-37.0); MCV 102.8 fL (80.0-100.0); MEAN PLATELET VOLUME 9.6 fL (7.4-10.4); MONOCYTES 7.9 % (2-11); NEUTROPHILS 87.8 % (40-80); PLATELET COUNT 160 10x3/uL (130-400); RBC 4.62 10x6/uL (4.00-5.40); RDW 13.2 % (11.5-14.5); WBC 12.8 10x3/uL (4.8-10.8)
[2019-09-09 06:02] LABS: CALC OSMOLALITY 271 mosm/kg (275-300); CHLORIDE - SERUM 93 mmol/L (98-107); CREATININE - SERUM 0.8 mg/dL (0.6-1.3); GLUCOSE 210 mg/dL (74-106); POTASSIUM - SERUM 5.1 mmol/L (3.5-5.1); SODIUM 131 mmol/L (136-145); UREA NITROGEN 22 mg/dL (7-18); eGFR NON AFRICAN AMERICAN 78 mL/min (90-120)
[2019-09-09 06:08] LABS: ALBUMIN 3.2 g/dL (3.4-5.0); ALKALINE PHOSPHATASE 105 U/L (30-120); ALT (SGPT) 777 U/L (10-68); BILIRUBIN - TOTAL 1.22 mg/dL (0.2-1.3); PROTEIN - SERUM 6.6 g/dL (6.4-8.2)
[2019-09-09 08:44] VITALS: BP 149/96
[2019-09-09 11:41] VITALS: BP 136/81
--- NOTE | 2019-09-09 13:32 | NUR ---
I have reviewed this patient and I concur with the Shift Assessment completed by the Licensed Practical Nurse today this shift.
[2019-09-09 15:24] VITALS: BP 133/78
--- NOTE | 2019-09-09 18:42 | NUR ---
PT AWAKE AND ORIENTED, NO COMPLAINTS OR CONCERNS AT THIS TIME ALL QUESTIONS ANSWERED TO THE BEST OF MY ABILITY. PT DOES COMPLAIN OF WANTING HER MORPHINE BACKK ON AFTER IT WAS D/C YESTERDAY, INFOMRED HER AGAIN THAT I WAS UNABLE TO PUT IT BACK ON. OFFERED NROCO, PT DECLINED.
--- NOTE | 2019-09-09 19:14 | NUR ---
REPORT RECEIVED, WILL CONTINUE POC. PATIENT IS AAOX4, LYING ON LEFT SIDE ON BREATHING TX. NO S/S OF DISTRESS OBSERVED, RR EVEN AND UNLABORED. PATIENT DENIES NEEDS AT THIS TIME. CL IN REACH, BED LOCKED AND LOWERED. WILL CTM.
[2019-09-09 20:30] VITALS: BP 133/70
--- NOTE | 2019-09-10 02:54 | NUR ---
I have reviewed this patient and I concur with the Shift Assessment completed by the Licensed Practical Nurse today this shift.
[2019-09-10 04:30] VITALS: BP 128/72
[2019-09-10 07:24] LABS: BASOPHILS 0 % (0-2); EOSINOPHILS 0 % (0-7); HEMATOCRIT 43.6 % (36.0-48.0); IMMATURE GRANULOCYTES 0.3 % (0-5); LYMPHOCYTES 11.7 % (15-50); MCHC 29.8 g/dL (31.0-37.0); MONOCYTES 9.4 % (2-11); NEUTROPHILS 78.6 % (40-80); PLATELET COUNT 158 10x3/uL (130-400); RBC 4.33 10x6/uL (4.00-5.40); RDW 12.8 % (11.5-14.5)
[2019-09-10 07:29] LABS: MCV 100.7 fL (80.0-100.0); WBC 3.9 10x3/uL (4.8-10.8)
[2019-09-10 07:38] LABS: ALBUMIN 2.8 g/dL (3.4-5.0); ALKALINE PHOSPHATASE 106 U/L (30-120); BILIRUBIN - TOTAL 0.47 mg/dL (0.2-1.3); CALCIUM 8.7 mg/dL (8.5-10.1); CHLORIDE - SERUM 96 mmol/L (98-107); CREATININE - SERUM 0.7 mg/dL (0.6-1.3); PROTEIN - SERUM 5.8 g/dL (6.4-8.2); SODIUM 136 mmol/L (136-145); UREA NITROGEN 17 mg/dL (7-18); eGFR NON AFRICAN AMERICAN > 90 mL/min (90-120)
[2019-09-10 07:40] VITALS: BP 143/72
[2019-09-10 07:42] LABS: ALT (SGPT) 442 U/L (10-68); CALC OSMOLALITY 276 mosm/kg (275-300); GLUCOSE 148 mg/dL (74-106); POTASSIUM - SERUM 3.8 mmol/L (3.5-5.1)
[2019-09-10 07:43] LABS: CARBON DIOXIDE 43.4 mmol/L (21.0-32.0)
--- NOTE | 2019-09-10 07:59 | NUR ---
PT AWAKE AND ORIENTED, LIVER SCAN DONE EARLY. NO COMPLAINTS OR CONCERNS AT THIS TIME. CL IN REACH, SRX2.
--- NOTE | 2019-09-10 09:06 | NUR ---
PT AWAKE AND ORIENTED, SITTING ON SIDE OF BED EATING BREAKFAST. TOOK MEDICATIONS WITHOUT COMPLICATIONS, DENIES NEED FOR NORCO AT THIS TIME. ALL QUESTIONS ANSWERED TO THE BEST OF MY ABILITY.
--- NOTE | 2019-09-10 10:17 | NUR ---
Nutrition Follow-up: Eating well. Ate 100% this AM. Diet: Regular Wt: 135.5# (09/07) Labs noted: Glu 148, Alb 2.8 Meds noted: Solumedrol, Carafate, Lasix, Protonix, electrolyte protocol -Need new wt; noted daily wts ordered. -RD following.
--- NOTE | 2019-09-10 11:17 | NUR ---
PT WALKING AROUND ROOM, NO COMPLAINTS OR CONCERNS AT THIST BENJAMIN. DENIES NEED FOR PAIN MEDICATION. NOTED SLIGHTLY SHAKING HANDS, LIKELY RELATED TO SOLUMEDROL INJECTION. CL IN REACH,S RX2.
[2019-09-10 11:37] VITALS: BP 142/81
--- NOTE | 2019-09-10 14:44 | MORECARE ---
CASE MANAGEMENT DISCHARGE SUMMARY PATIENT: LANE ONEAL UNIT: [id number] ADM DATE: 09/05/19 AGE: 59 : 62 SEX: F ROOM/BED: D.1000 AUTHOR: MERA,DOC PHYSICIAN: REFERRING PHYSICIAN: DANIKA GUPTA MD DATE OF SERVICE: 09/10/19 Discharge Plan Patient Name: LANE ONEAL Facility: [facility]:[place] : 1960 Planned Disposition: Home with Home Health Anticipated Discharge Date: Discharge Date: Expected LOS: Initial Reviewer: [email or web address] Initial Review Date: 09/05/2019 Generated: 09/10/19 3:43 pm DCP- Discharge Planning Updated by [email or web address]: Mary Mauricio on 09/10/19 12:[address] Patient Name: LANE ONEAL Admission Status: Elective Accout number: [id number] Admission Date: 09-05-2019 : 1960 Admission Diagnosis:SHORTNESS OF BREATH Attending: KAROL Current LOS: 5 Anticipated DC Date: Planned Disposition: Primary Insurance: [facility] MEDICARE SOLUTIONS LATE ENTRY ASSESSMENT COMPLETED 09/07/19 Discharge Planning Comments: CM met with patient to complete initial dc planning assessment. CM educated patient on the CM role and verbal consent given by patient to complete assessment. PT unable to participate in assessment. C/o SOB and anxiety. Pt states she was unable to get in hold of her daughter so she can have her trilogy brought to her. Daughter works at [employer]. CM called daughter to bring trilogy. 09/10/19 CM verified patient's address, phone number, and emergency contact phone numbers. Patient lives at home with her mother. Patient states she has home o2, and uses 4 liters. States she uses [facility], and plans to resume care with them. At discharge patient plans to return home and feels this is a safe discharge. LAKESHIA signed for [facility], and [facility]. Patient denies other discharge needs at this time. Transportation provider at discharge will be Tete (dtr) . CM will continue to follow and will assist as needed with dc plans/needs. Cylinder Block Mechanic: Mary Edds DCPIA - Discharge Planning Initial Assessment Updated by [email or web address]: Mary Mauricio on 09/10/19 1:41 pm * Is the patient Alert and Oriented? Yes * How many steps to enter\exit or inside your home? 0/0 * PCP terra * Pharmacy [facility] * Preadmission Environment Home with Family * ADLs Independent * Equipment Nebulizer Oxygen Ventilator * List name and contact numbers for known caregivers / representatives who currently or will assist patient after discharge: [phone] Madison Lin ([facility]) * Verbal permission to speak to the caregivers and representatives has been obtained from the patient. Yes * Community resources currently utilized Home Health * Please name any agencies selected above. [facility] * Additional services required to return to the preadmission environment? No * Can the patient safely return to the preadmission environment? Yes * Has this patient been hospitalized within the prior 30 days at any hospital? No Patient Name: LANE ONEAL Page [phone] at 1444 All edits/amendments must be made on the electronic document DICTATION DATE: 09/10/19 1443 ASSAYER HELPER: TAISHA 09/10/19 1443 RPT#: [id number] DC DATE: STATUS: ADM IN [facility] [address] [place] [address] END OF REPORT
[2019-09-10 14:54] VITALS: BP 166/91
[2019-09-10 19:52] VITALS: BP 121/64
--- NOTE | 2019-09-10 22:18 | NUR ---
IV TO LEFT AC LEAKING, IV CATH REMOVED, TIP INTACT. AFTER 2 UNSUCCESSFUL ATTEMPTS AT RESITING PIV ACCESS, WILL ASK ANOTHER NURSE TO TRY.
--- NOTE | 2019-09-10 23:50 | NUR ---
IV RESITED TO RIGHT WRIST BY Paola ALVARENGA. 20 MIRTA PT TOLERATED WELL.
[2019-09-10 23:58] VITALS: BP 139/82
--- NOTE | 2019-09-11 01:50 | NUR ---
RESTING WITH EYES CLOSED, RESPERATIONS EVEN, NO S/S DISTRESS NOTED.
--- NOTE | 2019-09-11 03:24 | NUR ---
I have reviewed this patient and I concur with the Shift Assessment completed by the Licensed Practical Nurse today this shift.
[2019-09-11 04:23] VITALS: BP 125/79
[2019-09-11 06:34] LABS: BASOPHILS 0 % (0-2); EOSINOPHILS 0 % (0-7); HEMATOCRIT 43.1 % (36.0-48.0); HEMOGLOBIN 13.2 g/dL (12-16); IMMATURE GRANULOCYTES 0.6 % (0-5); LYMPHOCYTES 12.7 % (15-50); MCHC 30.6 g/dL (31.0-37.0); MEAN PLATELET VOLUME 10.1 fL (7.4-10.4); NEUTROPHILS 77.7 % (40-80); PLATELET COUNT 147 10x3/uL (130-400); RDW 12.7 % (11.5-14.5); WBC 3.5 10x3/uL (4.8-10.8)
[2019-09-11 06:59] LABS: ALBUMIN 2.7 g/dL (3.4-5.0); ALKALINE PHOSPHATASE 91 U/L (30-120); BILIRUBIN - TOTAL 0.49 mg/dL (0.2-1.3); CALC OSMOLALITY 280 mosm/kg (275-300); CALCIUM 8.6 mg/dL (8.5-10.1); CHLORIDE - SERUM 96 mmol/L (98-107); CREATININE - SERUM 0.6 mg/dL (0.6-1.3); GLUCOSE 149 mg/dL (74-106); POTASSIUM - SERUM 3.7 mmol/L (3.5-5.1); PROTEIN - SERUM 5.6 g/dL (6.4-8.2); SODIUM 138 mmol/L (136-145); UREA NITROGEN 18 mg/dL (7-18); eGFR NON AFRICAN AMERICAN > 90 mL/min (90-120)
[2019-09-11 07:15] LABS: ALT (SGPT) 278 U/L (10-68)
[2019-09-11 07:16] LABS: CARBON DIOXIDE 41.4 mmol/L (21.0-32.0)
[2019-09-11 08:12] LABS: HEPATITIS C ANTIBODY <0.1 S/CO RAT (0.0-0.9)
[2019-09-11 10:03] VITALS: BP 154/82
[2019-09-11] MEDS ORDERED: OMNICEF300 MG PO (12:03)
--- NOTE | 2019-09-11 12:35 | MORECARE ---
CASE MANAGEMENT DISCHARGE SUMMARY PATIENT: LANE ONEAL UNIT: [id number] ADM DATE: 09/05/19 AGE: 59 : 62 SEX: F ROOM/BED: D.8357 AUTHOR: MERA,DOC PHYSICIAN: REFERRING PHYSICIAN: DANIKA GUPTA MD DATE OF SERVICE: 09/11/19 Discharge Plan Patient Name: LANE ONEAL Facility: [facility]:[place] : 1960 Planned Disposition: Home with Home Health Anticipated Discharge Date: Discharge Date: Expected LOS: Initial Reviewer: [email or web address] Initial Review Date: 09/05/2019 Generated: 09/11/19 1:34 pm DCP- Discharge Planning Updated by [email or web address]: Mary Mauricio on 09/10/19 12:[address] Patient Name: LANE ONEAL Admission Status: Elective Accout number: [id number] Admission Date: 09-05-2019 : 1960 Admission Diagnosis:SHORTNESS OF BREATH Attending: KAROL Current LOS: 5 Anticipated DC Date: Planned Disposition: Primary Insurance: [facility] MEDICARE SOLUTIONS LATE ENTRY ASSESSMENT COMPLETED 09/07/19 Discharge Planning Comments: CM met with patient to complete initial dc planning assessment. CM educated patient on the CM role and verbal consent given by patient to complete assessment. PT unable to participate in assessment. C/o SOB and anxiety. Pt states she was unable to get in hold of her daughter so she can have her trilogy brought to her. Daughter works at [employer]. CM called daughter to bring trilogy. 09/10/19 CM verified patient's address, phone number, and emergency contact phone numbers. Patient lives at home with her mother. Patient states she has home o2, and uses 4 liters. States she uses [facility], and plans to resume care with them. At discharge patient plans to return home and feels this is a safe discharge. LAKESHIA signed for [facility], and [facility]. Patient denies other discharge needs at this time. Transportation provider at discharge will be Tete (dtr) . CM will continue to follow and will assist as needed with dc plans/needs. Wedding Photographer: Mary Edds DCPIA - Discharge Planning Initial Assessment Updated by [email or web address]: Mary Mauricio on 09/10/19 1:41 pm * Is the patient Alert and Oriented? Yes * How many steps to enter\exit or inside your home? 0/0 * PCP terra * Pharmacy [facility] * Preadmission Environment Home with Family * ADLs Independent * Equipment Nebulizer Oxygen Ventilator * List name and contact numbers for known caregivers / representatives who currently or will assist patient after discharge: [phone] Madison Lin (mom) * Verbal permission to speak to the caregivers and representatives has been obtained from the patient. Yes * Community resources currently utilized Home Health * Please name any agencies selected above. [facility] * Additional services required to return to the preadmission environment? No * Can the patient safely return to the preadmission environment? Yes * Has this patient been hospitalized within the prior 30 days at any hospital? No External Providers External Provider: Marline Next Contact Date: Service Request Date: Service Type: Resolution: Reviewer: Comments: [facility] Next Contact Date: Service Request Date: Service Type: Resolution: Reviewer: Comments: Last DP export: 09/10/19 1:44 pm Patient Name: LANE ONEAL Page 27530 at 1235 All edits/amendments must be made on the electronic document DICTATION DATE: 09/11/19 1234 CHANNEL MARKETING COORDINATOR: TAISHA 09/11/19 1234 RPT#: [id number] DC DATE: STATUS: ADM IN [facility] [address] [place] [address] END OF REPORT
--- NOTE | 2019-09-11 16:13 | MORECARE ---
CASE MANAGEMENT DISCHARGE SUMMARY PATIENT: LANE ONEAL UNIT: [id number] ADM DATE: 09/05/19 AGE: 59 : 62 SEX: F ROOM/BED: D.8512 AUTHOR: MERA,DOC PHYSICIAN: REFERRING PHYSICIAN: DANIKA GUPTA MD DATE OF SERVICE: 09/11/19 Discharge Plan Patient Name: LANE ONEAL Facility: [facility]:[place] : 1960 Planned Disposition: Home with Home Health Anticipated Discharge Date: Discharge Date: 09/11/2019 Expected LOS: Initial Reviewer: [email or web address] Initial Review Date: 09/05/2019 Generated: 09/11/19 5:12 pm Comments DCP- Discharge Planning Updated by [email or web address]: Mary Mauricio on 09/11/19 3:[address] Patient Name: LANE ONEAL Encounter No: [id number] : 1960 Primary Insurance: [employer] MEDICARE SOLUTIONS Anticipated DC Date: Planned Disposition: Home with Home Health External Planned Provider: : DCP follow-up note: CM met with patient for final dc planning. Patient states they are ready to be discharged. Stated her car is in parking lot, and she feels she can drive home. Portable oxygen is at bedside. DC IMM delivered, explained, signed by the patient, and placed in his chart. Signed form also left with patient. Cm faxed LAKESHIA to [facility], and [facility]. Patient and family in agreement with discharge plan. No changes to plan. Case management will follow and assist as needed. Mary Mauricio MSN,RN,CM DCP- Discharge Planning Updated by [email or web address]: Mary Mauricio on 09/10/19 12:[address] Patient Name: LANE ONEAL Admission Status: Elective Accout number: [id number] Admission Date: 09-05-2019 : 1960 Admission Diagnosis:SHORTNESS OF BREATH Attending: KAROL Current LOS: 5 Anticipated DC Date: Planned Disposition: Primary Insurance: [employer] MEDICARE SOLUTIONS LATE ENTRY ASSESSMENT COMPLETED 09/07/19 Discharge Planning Comments: CM met with patient to complete initial dc planning assessment. CM educated patient on the CM role and verbal consent given by patient to complete assessment. PT unable to participate in assessment. C/o SOB and anxiety. Pt states she was unable to get in hold of her daughter so she can have her trilogy brought to her. Daughter works at [employer]. CM called daughter to bring trilogy. 09/10/19 CM verified patient's address, phone number, and emergency contact phone numbers. Patient lives at home with her mother. Patient states she has home o2, and uses 4 liters. States she uses [facility], and plans to resume care with them. At discharge patient plans to return home and feels this is a safe discharge. LAKESHIA signed for [facility], and [facility]. Patient denies other discharge needs at this time. Transportation provider at discharge will be Tete (nedar) . CM will continue to follow and will assist as needed with dc plans/needs. Wheel Shop Supervisor: Mary Mauricio DCPIA - Discharge Planning Initial Assessment Updated by [email or web address]: Mary Mauricio on 09/10/19 1:41 pm * Is the patient Alert and Oriented? Yes * How many steps to enter\exit or inside your home? 0/0 * PCP ellison * Pharmacy [facility] * Preadmission Environment Home with Family * ADLs Independent * Equipment Nebulizer Oxygen Ventilator * List name and contact numbers for known caregivers / representatives who currently or will assist patient after discharge: [phone] Madison Lin (mom) * Verbal permission to speak to the caregivers and representatives has been obtained from the patient. Yes * Community resources currently utilized Home Health * Please name any agencies selected above. [facility] * Additional services required to return to the preadmission environment? No * Can the patient safely return to the preadmission environment? Yes * Has this patient been hospitalized within the prior 30 days at any hospital? No Coverage Notice Reviewer: [id number] - Mary Mauricio Notice Issued Date-Time: 09/11/2019 12:15 Notice Type: IM Discharge Notice Notice Delivered To: Patient Relationship to Patient: Cell Preparer Name: Delivery Method: HAND - Hand Delivered Makenzie Days: Prior Verbal Notification: Recipient Understood Notice: Yes Recipient Signature: Yes Med Rec Note Co-signed by Attending: Coverage Notice Comment: DC IMM delivered, explained, signed by the patient, and placed in his chart. Signed form also left with patient. Last DP export: 09/11/19 11:35 am Patient Name: LANE ONEAL Page 44395 at 1613 All edits/amendments must be made on the electronic document DICTATION DATE: 09/11/191611 INDUSTRIAL PRODUCTION MANAGER: TAISHA 09/11/191611 RPT#: [id number] DC DATE:09/11/19 STATUS: DIS IN [facility] [address] [place] [address] END OF REPORT
--- NOTE | 2019-09-12 09:07 | MORECARE ---
CASE MANAGEMENT DISCHARGE SUMMARY PATIENT: LANE ONEAL UNIT: [id number] ADM DATE: 09/05/19 AGE: 59 : 62 SEX: F ROOM/BED: D.7469 AUTHOR: MERA,DOC PHYSICIAN: REFERRING PHYSICIAN: DANIKA GUPTA MD DATE OF SERVICE: 09/12/19 Discharge Plan Patient Name: LANE ONEAL Facility: [facility]:[place] : 1960 Planned Disposition: Home with Home Health Anticipated Discharge Date: Discharge Date: 09/11/2019 Expected LOS: Initial Reviewer: [email or web address] Initial Review Date: 09/05/2019 Generated: 09/12/19 10:06 am Comments DCP- Discharge Planning Updated by [email or web address]: Mary Mauricio on 09/11/19 3:[address] Patient Name: LANE ONEAL Encounter No: [id number] : 1960 Primary Insurance: [employer] Anticipated DC Date: Planned Disposition: Home with Home Health External Planned Provider: : DCP follow-up note: CM met with patient for final dc planning. Patient states they are ready to be discharged. Stated her car is in parking lot, and she feels she can drive home. Portable oxygen is at bedside. DC IMM delivered, explained, signed by the patient, and placed in his chart. Signed form also left with patient. Cm faxed LAKESHIA to [facility], and [facility]. Patient and family in agreement with discharge plan. No changes to plan. Case management will follow and assist as needed. Mary Mauricio MSN,RN,CM DCP- Discharge Planning Updated by [email or web address]: Mary Mauricio on 09/10/19 12:[address] Patient Name: LANE ONEAL Admission Status: Elective Accout number: [id number] Admission Date: 09-05-2019 : 1960 Admission Diagnosis:SHORTNESS OF BREATH Attending: KAROL Current LOS: 5 Anticipated DC Date: Planned Disposition: Primary Insurance: [employer] SOLUTIONS LATE ENTRY ASSESSMENT COMPLETED 09/07/19 Discharge Planning Comments: CM met with patient to complete initial dc planning assessment. CM educated patient on the CM role and verbal consent given by patient to complete assessment. PT unable to participate in assessment. C/o SOB and anxiety. Pt states she was unable to get in hold of her daughter so she can have her trilogy brought to her. Daughter works at [employer]. CM called daughter to bring trilogy. 09/10/19 CM verified patient's address, phone number, and emergency contact phone numbers. Patient lives at home with her mother. Patient states she has home o2, and uses 4 liters. States she uses [facility], and plans to resume care with them. At discharge patient plans to return home and feels this is a safe discharge. LAKESHIA signed for [facility], and [facility]. Patient denies other discharge needs at this time. Transportation provider at discharge will be [facility] (nedar) . CM will continue to follow and will assist as needed with dc plans/needs. Post Acute Care Nurse Practitioner: Mary Mauricio DCPIA - Discharge Planning Initial Assessment Updated by [email or web address]: Mary Mauricio on 09/10/19 1:41 pm * Is the patient Alert and Oriented? Yes * How many steps to enter\exit or inside your home? 0/0 * PCP ellison * Pharmacy [facility] * Preadmission Environment Home with Family * ADLs Independent * Equipment Nebulizer Oxygen Ventilator * List name and contact numbers for known caregivers / representatives who currently or will assist patient after discharge: [phone] Madison Lin (mom) * Verbal permission to speak to the caregivers and representatives has been obtained from the patient. Yes * Community resources currently utilized Home Health * Please name any agencies selected above. [facility] * Additional services required to return to the preadmission environment? No * Can the patient safely return to the preadmission environment? Yes * Has this patient been hospitalized within the prior 30 days at any hospital? No Coverage Notice Reviewer: [id number] - Mary Mauricio Notice Issued Date-Time: 09/11/2019 12:15 Notice Type: IM Discharge Notice Notice Delivered To: Patient Relationship to Patient: Hazardous Waste Management Specialist Name: Delivery Method: HAND - Hand Delivered Makenzie Days: Prior Verbal Notification: Recipient Understood Notice: Yes Recipient Signature: Yes Med Rec Note Co-signed by Attending: Coverage Notice Comment: DC IMM delivered, explained, signed by the patient, and placed in his chart. Signed form also left with patient. Last DP export: 09/11/19 3:13 pm Patient Name: LANE ONEAL Page [phone] at 0907 All edits/amendments must be made on the electronic document DICTATION DATE: 09/12/19905 BLOOD BANK SUPERVISOR: TAISHA 09/12/19905 RPT#: [id number] DC DATE:09/11/19 STATUS: DIS IN [facility] [address] [place] [address] END OF REPORT
== END 2019-09-11 14:16 | disposition home health service (06) | DRG 189 ==
LOC: D.M2 18:00 → D.SDCHOLD 09-07 16:50 → D.M2 09-07 16:51
PROVIDERS: Family Medicine; ADMIT Family Medicine; ATTEND Family Medicine
DX: J96.22 Acute and chronic respiratory failure with hypercapnia (principal); J44.1 Chronic obstructive pulmonary disease with (acute) exacerbation; F17.203 Nicotine dependence unspecified, with withdrawal; I50.30 Unspecified diastolic (congestive) heart failure; J96.21 Acute and chronic respiratory failure with hypoxia; J30.9 Allergic rhinitis, unspecified; K21.9 Gastro-esophageal reflux disease without esophagitis; F41.8 Other specified anxiety disorders; M19.90 Unspecified osteoarthritis, unspecified site; I11.0 Hypertensive heart disease with heart failure

== ENCOUNTER → 2019-09-21 14:00 | Outpatient (CLI) | payer MEDICARE, MEDICAID ==
[2019-09-06 13:58] VITALS: BMI 24.8
== END | disposition home or self-care (01) ==
LOC: D.RT 14:00
PROVIDERS: ATTEND Clinical Nurse Specialist Family Health
DX: J96.11 Chronic respiratory failure with hypoxia (principal)

== ENCOUNTER 2019-09-21 14:58 | Inpatient (IN) | payer MEDICARE, MEDICAID ==
[~2019-09-21] VITALS: Ht 157.5 cm; Wt 56.4 kg
[2019-09-21 15:55] LABS: BASOPHILS 0.2 % (0-2); EOSINOPHILS 1.9 % (0-7); HEMATOCRIT 46.5 % (36.0-48.0); HEMOGLOBIN 13.8 g/dL (12-16); IMMATURE GRANULOCYTES 0.2 % (0-5); LYMPHOCYTES 30.9 % (15-50); MCH 30.9 pg (26.0-34.0); MCHC 29.7 g/dL (31.0-37.0); MEAN PLATELET VOLUME 8.9 fL (7.4-10.4); MONOCYTES 9.5 % (2-11); NEUTROPHILS 57.3 % (40-80); RBC 4.47 10x6/uL (4.00-5.40); RDW 13.1 % (11.5-14.5); WBC 5.8 10x3/uL (4.8-10.8)
[2019-09-21 15:59] LABS: PLATELET COUNT 217 10x3/uL (130-400)
[2019-09-21 16:00] VITALS: BP 130/52
[2019-09-21 16:03] LABS: INR 0.88 (0.85-1.17); PROTIME 11.9 SECONDS (11.6-15.0)
[2019-09-21 16:20] LABS: ALBUMIN 3.3 g/dL (3.4-5.0); ALKALINE PHOSPHATASE 87 U/L (30-120); ALT (SGPT) 36 U/L (10-68); BILIRUBIN - TOTAL 0.42 mg/dL (0.2-1.3); CALC OSMOLALITY 277 mosm/kg (275-300); CALCIUM 8.7 mg/dL (8.5-10.1); CHLORIDE - SERUM 100 mmol/L (98-107); CKMB 1.4 U/L (0.0-3.6); CREATINE KINASE 31 UL (21-215); CREATININE - SERUM 0.9 mg/dL (0.6-1.3); GLUCOSE 128 mg/dL (74-106); POTASSIUM - SERUM 4.1 mmol/L (3.5-5.1); PRO BNP 65 pg/mL (0-125); PROTEIN - SERUM 6.7 g/dL (6.4-8.2); SODIUM 139 mmol/L (136-145); UREA NITROGEN 6 mg/dL (7-18); eGFR NON AFRICAN AMERICAN 68 mL/min (90-120)
[2019-09-21 16:36] LABS: CARBON DIOXIDE 45.5 mmol/L (21.0-32.0); TROPONIN-I < 0.017 ng/mL (0.000-0.060)
[2019-09-21 17:00] VITALS: BP 144/65
[2019-09-21 17:57] VITALS: BP 129/60
--- NOTE | 2019-09-21 19:50 | NUR ---
PT DROOLING LEANING FORWARD AND UNABLE TO ANSWER QUESTIONS AT THIS TIME. MD INFORMED. MD AT BEDSIDE.
--- NOTE | 2019-09-21 19:51 | NUR ---
PT ASKING FOR MORE PAIN MED AT THIS TIME. MD INFORMED NO NEW ORDERS GIVEN.
--- NOTE | 2019-09-21 19:51 | NUR ---
PT RESPONDED TO NARCAN STATES THAT SHE DID TAKE MORE MEDS FROM HER PURSE SINCE BEING IN ROOM. MD AT BEDSIDE. RT AT BEDSIDE.
--- NOTE | 2019-09-21 19:52 | NUR ---
PT MEDS TAKEN TO NURSING STATION.
[2019-09-22] VITALS (7 sets, daily range): BP systolic 94–157; BP diastolic 60–71; Ht 157.5 cm; Wt 56.4 kg
--- NOTE | 2019-09-22 00:19 | NUR ---
PT REPORTS THAT SHE TOOK HER OWN PROPANOLOL IN THE ER. COLLECTED HER MEDICATIONS AND COUNTED THE KLONOPIN IN FRONT OF HER. KLONOPIN PLACED IN SEALED BAG, AND THE OTHER MEDS PLACED IN A PT BELONGING BAG AND PUT IN THE BOTTOM ON THE CASSETTE. SHE DENIES NEEDS OR PAIN AT THIS TIME. BED IS LOW AND CALL LIGHT WITHIN REACH. VSS.
[2019-09-22 00:35] LABS: BILIRUBIN NEGATIVE (NEGATIVE); GLUCOSE 50 mg/dL (NEGATIVE); KETONE NEGATIVE (NEGATIVE); NITRITE NEGATIVE (NEGATIVE); UROBILINOGEN NORMAL (NORMAL)
[2019-09-22 01:30] LABS: UDS - AMPHET NEGATIVE QUAL (NEGATIVE); UDS - BARB NEGATIVE QUAL (NEGATIVE); UDS - BENZO NEGATIVE QUAL (NEGATIVE); UDS - COCAINE NEGATIVE QUAL (NEGATIVE); UDS - OPIATE POSITIVE QUAL (NEGATIVE); UDS - PCP NEGATIVE QUAL (NEGATIVE); UDS - THC NEGATIVE QUAL (NEGATIVE)
--- NOTE | 2019-09-22 08:21 | NUR ---
RESTING IN BED, NO DISTRESS NOTED, REQUESTING PAIN MEDS THIS AM, SL IN PLACE TO LAC, CONT TO MONITOR RESP STATUS
[2019-09-23] VITALS: BP 111/54
--- NOTE | 2019-09-23 01:51 | NUR ---
ALERT AND ORENTED X 4 ABLE TO VOICE NEEDS AND WANTS TO STAFF. ON O2 AT 3L VIA N/C WITH BIPAP AT NIGHT. IV TO LEFT AC , S.L. TELEMERTY IN PLAC 89 SR INCENTIVE SPIROMETER IN REACH SCD'S IN PLACE NO NEEDS AT THIS TIME.
[2019-09-23 04:00] VITALS: BP 107/68
[2019-09-23 07:13] LABS: HEMATOCRIT 42.3 % (36.0-48.0); HEMOGLOBIN 12.5 g/dL (12-16); LYMPHOCYTES 28.6 % (15-50); MCH 29.8 pg (26.0-34.0); MCHC 29.6 g/dL (31.0-37.0); MEAN PLATELET VOLUME 8.5 fL (7.4-10.4); PLATELET COUNT 218 10x3/uL (130-400); RBC 4.19 10x6/uL (4.00-5.40); RDW 12.4 % (11.5-14.5); WBC 4.8 10x3/uL (4.8-10.8)
[2019-09-23 07:15] VITALS: BP 116/67
[2019-09-23 07:21] LABS: CALCIUM 8.2 mg/dL (8.5-10.1); CHLORIDE - SERUM 96 mmol/L (98-107); CREATININE - SERUM 0.8 mg/dL (0.6-1.3); GLUCOSE 96 mg/dL (74-106); MAGNESIUM - SERUM 1.7 mg/dL (1.8-2.4); PHOSPHOROUS 2.9 mg/dL (2.5-4.9); POTASSIUM - SERUM 4.3 mmol/L (3.5-5.1); SODIUM 138 mmol/L (136-145); eGFR NON AFRICAN AMERICAN 78 mL/min (90-120)
[2019-09-23 07:22] LABS: CALC OSMOLALITY 275 mosm/kg (275-300); UREA NITROGEN 12 mg/dL (7-18)
[2019-09-23 07:26] LABS: CARBON DIOXIDE 45.1 mmol/L (21.0-32.0)
--- NOTE | 2019-09-23 07:50 | NUR ---
LAB CALLED WITH CARBON DIOXIDE CRITICAL RESULTES OF 45.1 6-20-20 CARBON DIOXIDE LEVAL WAS 45.[address] [facility] AWATTING CALL RETRUN.
--- NOTE | 2019-09-23 08:00 | NUR ---
DR VOSS AWARE OF PT CRITICAL CO2 LEVEL
--- NOTE | 2019-09-23 09:01 | NUR ---
RESTING IN BED, NO DISTRESS NOTED, SL IN PLACE, TELE IN PLACE, CONT TO MONITOR RESP STATUS, O2 AT 3L
[2019-09-23 12:00] VITALS: BP 109/77
[2019-09-23 16:00] VITALS: BP 113/74
[2019-09-23 20:00] VITALS: BP 137/74
[2019-09-24] VITALS: BP 142/70
--- NOTE | 2019-09-24 01:18 | NUR ---
I have reviewed this patient and I concur with the Shift Assessment completed by the Licensed Practical Nurse today this shift.
[2019-09-24 04:00] VITALS: BP 131/84
[2019-09-24 06:08] LABS: HEMATOCRIT 39.9 % (36.0-48.0); HEMOGLOBIN 12.1 g/dL (12-16); LYMPHOCYTES 22.6 % (15-50); MCH 30.1 pg (26.0-34.0); MCHC 30.3 g/dL (31.0-37.0); MCV 99.3 fL (80.0-100.0); MEAN PLATELET VOLUME 8.9 fL (7.4-10.4); NEUTROPHILS 65.3 % (40-80); RBC 4.02 10x6/uL (4.00-5.40); RDW 12.4 % (11.5-14.5); WBC 5.1 10x3/uL (4.8-10.8)
[2019-09-24 06:21] LABS: PLATELET COUNT 171 10x3/uL (130-400)
[2019-09-24 06:25] LABS: ANION GAP 0.1 mmol/L (8-16); CALCIUM 8.1 mg/dL (8.5-10.1); CREATININE - SERUM 0.9 mg/dL (0.6-1.3); PHOSPHOROUS 2.8 mg/dL (2.5-4.9); POTASSIUM - SERUM 3.8 mmol/L (3.5-5.1)
[2019-09-24 06:27] LABS: CARBON DIOXIDE 43.7 mmol/L (21.0-32.0)
[2019-09-24 09:31] VITALS: BP 123/70
[2019-09-24 14:02] VITALS: BP 115/67
--- NOTE | 2019-09-24 16:42 | NUR ---
SHOWER GIVEN AT THIS TIME WITH LINEN CHANGED. C/L IN REACH AT BEDSIDE.
--- NOTE | 2019-09-24 18:16 | NUR ---
0700 BEDSWIDE REPORT RECEIVED FROM OUTGOING NURSE INTRODUCED MYSELF TO PATIENT AND PLACED MY NAMR ON THE WHITE BOARD TAKING OF BPAP AT PRESENT AND PLACING O2 ON AT 3L/NC
--- NOTE | 2019-09-24 18:18 | NUR ---
0900 LUNGS CLEAR AND DIMINISHED
--- NOTE | 2019-09-24 18:18 | NUR ---
1630 UP TO SHOWER WHILE WEARING O2 USED SHOWER CHAIR FOR SAFETY
[2019-09-24 18:47] VITALS: BP 121/64
[2019-09-24 20:51] VITALS: BP 131/68
[2019-09-25 00:51] VITALS: BP 114/63
[2019-09-25 04:00] VITALS: BP 122/66
[2019-09-25 04:22] LABS: BASOPHILS 0 % (0-2); EOSINOPHILS 0.3 % (0-7); HEMOGLOBIN 12.2 g/dL (12-16); IMMATURE GRANULOCYTES 0.3 % (0-5); LYMPHOCYTES 24.9 % (15-50); MCH 29.9 pg (26.0-34.0); MCHC 29.8 g/dL (31.0-37.0); MCV 100.5 fL (80.0-100.0); MEAN PLATELET VOLUME 9.5 fL (7.4-10.4); MONOCYTES 11.6 % (2-11); NEUTROPHILS 62.9 % (40-80); PLATELET COUNT 151 10x3/uL (130-400); RBC 4.08 10x6/uL (4.00-5.40)
[2019-09-25 04:36] LABS: WBC 3.6 10x3/uL (4.8-10.8)
[2019-09-25 04:50] LABS: CALCIUM 8.6 mg/dL (8.5-10.1); CREATININE - SERUM 0.9 mg/dL (0.6-1.3); MAGNESIUM - SERUM 1.9 mg/dL (1.8-2.4); POTASSIUM - SERUM 3.9 mmol/L (3.5-5.1)
[2019-09-25 04:54] LABS: PHOSPHOROUS 4.2 mg/dL (2.5-4.9)
[2019-09-25 04:55] LABS: CARBON DIOXIDE 40.9 mmol/L (21.0-32.0)
--- NOTE | 2019-09-25 06:19 | NUR ---
I have reviewed this patient and I concur with the Shift Assessment completed by the Licensed Practical Nurse today this shift.
[2019-09-25 08:00] VITALS: BP 128/72
[2019-09-25 12:00] VITALS: BP 111/58
[2019-09-25 16:00] VITALS: BP 115/62
--- NOTE | 2019-09-25 17:46 | NUR ---
I have reviewed this patient and I concur with the Shift Assessment completed by the Licensed Practical Nurse today this shift.
[2019-09-25 20:30] VITALS: BP 126/63
[2019-09-26 00:14] VITALS: BP 131/64
--- NOTE | 2019-09-26 02:14 | NUR ---
HAVE ATTEMPTED X 3 TO GET PT TO WEAR BIPAP.T HAS BEEN ON PHONE ALL THREE VISITS AND STATES NOT READY FOR BIPAP. WILL TAKE UPDRAFTS BUT NOT BIPAP. WILL CONT TO ATTEMPT BUT DO NOT FORSEE MUCH COMPLIANCE TONIGHT IT IS ALREADY 0215.
[2019-09-26 06:10] VITALS: BP 125/70
[2019-09-26 06:47] LABS: BASOPHILS 0 % (0-2); EOSINOPHILS 0 % (0-7); LYMPHOCYTES 9.4 % (15-50); MCH 29.8 pg (26.0-34.0); MCHC 29.5 g/dL (31.0-37.0); MCV 100.9 fL (80.0-100.0); MEAN PLATELET VOLUME 9.9 fL (7.4-10.4); MONOCYTES 2.6 % (2-11); PLATELET COUNT 159 10x3/uL (130-400); RBC 4.36 10x6/uL (4.00-5.40); RDW 13.1 % (11.5-14.5); WBC 3.4 10x3/uL (4.8-10.8)
[2019-09-26 06:53] LABS: CALCIUM 9.3 mg/dL (8.5-10.1); CHLORIDE - SERUM 96 mmol/L (98-107); CREATININE - SERUM 0.8 mg/dL (0.6-1.3); PHOSPHOROUS 3.3 mg/dL (2.5-4.9); POTASSIUM - SERUM 4.3 mmol/L (3.5-5.1); SODIUM 136 mmol/L (136-145); UREA NITROGEN 20 mg/dL (7-18); eGFR NON AFRICAN AMERICAN 78 mL/min (90-120)
[2019-09-26 06:54] LABS: CALC OSMOLALITY 278 mosm/kg (275-300); GLUCOSE 177 mg/dL (74-106)
[2019-09-26 06:55] LABS: CARBON DIOXIDE 42.6 mmol/L (21.0-32.0)
--- NOTE | 2019-09-26 07:56 | NUR ---
PT IS RESTING IN BED WITH EYES CLOSED. RESPIRATIONS ARE EVEN AND UNLABORED. BIPAP IS ON. PT IS EASILY AROUSED WITH VERBAL STIMULATION AND IS AAO X 4 UPON AROUSAL. 4L O2 VIA NC. PT WITH RIGHT HAND PIV THAT IS SL AND FLUSHES WITHOUT DIFFICULTY. PT DENIES PRESENCE OF N/V/SOB/DYSPNEA AT THIS TIME. PT REPORTS PAIN TO BACK. WILL ADDRESS. SEE EMAR. BED IS IN THE LOWEST POSITION. CALL LIGHT AND BEDSIDE TABLE ARE WITHIN REACH. SIDE RAILS X 2. PT DENIES FURTHER NEEDS. WILL CONT TO MONITOR.
[2019-09-26 08:21] VITALS: BP 115/69
[2019-09-26 12:00] VITALS: BP 115/56
--- NOTE | 2019-09-26 14:22 | NUR ---
PT PRN MORPHINE DC IN [facility]. ENRIQUETA JENSEN APRN ON FLOOR AND NOTIFIED. VERBAL ORDERS RECD TO REPEAT MEDICATION ORDER. WILL COMPLETE.
[2019-09-26 16:00] VITALS: BP 121/62
--- NOTE | 2019-09-26 17:02 | MORECARE ---
CASE MANAGEMENT DISCHARGE SUMMARY PATIENT: LANE ONEAL UNIT: [id number] ADM DATE: 09/21/19 AGE: 59 : 62 SEX: F ROOM/BED: D.2237 AUTHOR: EDWARD TESFAYE PHYSICIAN: REFERRING PHYSICIAN: OLIVIA VALADEZ MD DATE OF SERVICE: 09/26/19 Discharge Plan Patient Name: LANE ONEAL Facility: [facility]:[place] : 1960 Planned Disposition: Home Hlth Svc w Plan Readm Anticipated Discharge Date: Discharge Date: Expected LOS: Initial Reviewer: [email or web address] Initial Review Date: 09/26/2019 Generated: 09/26/19 6:01 pm DCPIA - Discharge Planning Initial Assessment Updated by [id number]: Ary Roy on 09/26/19 5:00 pm * Is the patient Alert and Oriented? Yes * PCP SHEEHAN * Pharmacy [facility] [address] * ADLs Independent * Other Equipment [facility], [facility], [address] [place] [address] * Community resources currently utilized Home Health * Please name any agencies selected above. [facility] * Additional services required to return to the preadmission environment? No * Can the patient safely return to the preadmission environment? Yes * Has this patient been hospitalized within the prior 30 days at any hospital? No Coverage Notice Reviewer: [email or web address] Elysia Roy Notice Issued Date-Time: 09/26/2019 17:01 Notice Type: IM Discharge Notice Notice Delivered To: Patient Relationship to Patient: Darkroom Worker Name: Delivery Method: HAND - Hand Delivered Makenzie Days: Prior Verbal Notification: Recipient Understood Notice: Yes Recipient Signature: Yes Med Rec Note Co-signed by Attending: Coverage Notice Comment: Reviewer: [id number] Elysia Roy Notice Issued Date-Time: 09/26/2019 17:01 Notice Type: Patient Choice Letter Notice Delivered To: Patient Relationship to Patient: Darkroom Worker Name: Delivery Method: - Makenzie Days: Prior Verbal Notification: Recipient Understood Notice: Recipient Signature: Med Rec Note Co-signed by Attending: Coverage Notice Comment: Patient Name: LANE ONEAL Page 64938 at 1702 All edits/amendments must be made on the electronic document DICTATION DATE: 09/26/191700 OFFICE HELPER: TAISHA 09/26/191700 RPT#: [id number] [place] DATE: STATUS: ADM IN [facility] [address] [place] [address] END OF REPORT
--- NOTE | 2019-09-26 17:10 | MORECARE ---
CASE MANAGEMENT DISCHARGE SUMMARY PATIENT: LANE ONEAL UNIT: [id number] ADM DATE: 09/21/19 AGE: 59 : 62 SEX: F ROOM/BED: D.2237 AUTHOR: MERA,DOC PHYSICIAN: REFERRING PHYSICIAN: OLIVIA VALADEZ MD DATE OF SERVICE: 09/26/19 Discharge Plan Patient Name: LANE ONEAL Facility: [facility]:[place] : 1960 Planned Disposition: Home Hlth Svc w Plan Readm Anticipated Discharge Date: Discharge Date: Expected LOS: Initial Reviewer: [email or web address] Initial Review Date: 09/26/2019 Generated: 09/26/19 6:10 pm Comments DCP- Discharge Planning Updated by [id number]: Ary Roy on 09/26/19 4:[address] Patient Name: LANE ONEAL Admission Status: Elective Accout number: [id number] Admission Date: 09-21-2019 : 1960 Admission Diagnosis:ACUTE AND CHRONIC RESPIRATORY FAILURE WITH HYPERCAPNIA Attending: DEB Current LOS: 5 Anticipated DC Date: Planned Disposition: Home Hlth Svc w Plan Readm Primary Insurance: [facility] MEDICARE SOLUTIONS Discharge Planning Comments: CM met with patient at bedside after explaining CM role and obtaining verbal consent. CM discussed availability / needs of home health, REHAB and medical equipment. WILL NEED M9 FROM [facility] FOR HER PORTABLE TANK, I WILL CALL THEM AT DISCHARGE. LAKESHIA SIGNED TO [facility]. IMM SIGNED. ANTICIPATE POSSIBLE DC TOMORROW. CM WILL FOLLOW AND ASSIST NEEDED. Microsoft Exchange Administrator: Ary Roy DCPIA - Discharge Planning Initial Assessment Updated by [id number]: Ary Ryo on 09/26/19 5:00 pm * Is the patient Alert and Oriented? Yes * PCP SHEEHAN * Pharmacy [facility] [address] * ADLs Independent * Other Equipment [facility], 02 - [facility] * Community resources currently utilized Home Health * Please name any agencies selected above. [facility] * Additional services required to return to the preadmission environment? No * Can the patient safely return to the preadmission environment? Yes * Has this patient been hospitalized within the prior 30 days at any hospital? No External Providers External Provider: [facility] Next Contact Date: Service Request Date: Service Type: Resolution: Reviewer: Comments: External Provider: Marline Next Contact Date: Service Request Date: Service Type: Resolution: Reviewer: Comments: Coverage Notice Reviewer: [id number] Roy Notice Issued Date-Time: 09/26/2019 17:01 Notice Type: IM Discharge Notice Notice Delivered To: Patient Relationship to Patient: Tractor Crane Operator Name: Delivery Method: HAND - Hand Delivered Makenzie Days: Prior Verbal Notification: Recipient Understood Notice: Yes Recipient Signature: Yes Med Rec Note Co-signed by Attending: Coverage Notice Comment: Reviewer: [id number] Roy Notice Issued Date-Time: 09/26/2019 17:01 Notice Type: Patient Choice Letter Notice Delivered To: Patient Relationship to Patient: Tractor Crane Operator Name: Delivery Method: HAND - Hand Delivered Makenzie Days: Prior Verbal Notification: Recipient Understood Notice: Yes Recipient Signature: Yes Med Rec Note Co-signed by Attending: Coverage Notice Comment: LAKESHIA JACKSON. Last DP export: 09/26/19 4:02 p Patient Name: LANE ONEAL Page 23431 at 1710 All edits/amendments must be made on the electronic document DICTATION DATE: 09/26/191709 SOFTWARE TESTER: TAISHA 09/26/191709 RPT#: [id number] DC DATE: STATUS: ADM IN [facility] [address] [place] [address] END OF REPORT
[2019-09-26 20:00] VITALS: BP 130/58
[2019-09-27] VITALS: BP 131/76
[2019-09-27 04:00] VITALS: BP 130/64
[2019-09-27 05:28] LABS: BASOPHILS 0 % (0-2); EOSINOPHILS 0.2 % (0-7); HEMATOCRIT 42.3 % (36.0-48.0); HEMOGLOBIN 12.4 g/dL (12-16); IMMATURE GRANULOCYTES 0.2 % (0-5); LYMPHOCYTES 18.7 % (15-50); MCH 29.7 pg (26.0-34.0); MCHC 29.3 g/dL (31.0-37.0); MCV 101.2 fL (80.0-100.0); MONOCYTES 10.8 % (2-11); NEUTROPHILS 70.1 % (40-80); PLATELET COUNT 163 10x3/uL (130-400); RBC 4.18 10x6/uL (4.00-5.40); RDW 13.2 % (11.5-14.5)
[2019-09-27 05:44] LABS: CALCIUM 8.8 mg/dL (8.5-10.1); CHLORIDE - SERUM 95 mmol/L (98-107); CREATININE - SERUM 0.8 mg/dL (0.6-1.3); MAGNESIUM - SERUM 1.8 mg/dL (1.8-2.4); PHOSPHOROUS 3.2 mg/dL (2.5-4.9); POTASSIUM - SERUM 3.9 mmol/L (3.5-5.1); SODIUM 135 mmol/L (136-145); UREA NITROGEN 22 mg/dL (7-18); eGFR NON AFRICAN AMERICAN 78 mL/min (90-120)
[2019-09-27 05:46] LABS: WBC 5.2 10x3/uL (4.8-10.8)
[2019-09-27 06:17] LABS: CALC OSMOLALITY 273 mosm/kg (275-300); GLUCOSE 108 mg/dL (74-106)
[2019-09-27 06:19] LABS: CARBON DIOXIDE 42.2 mmol/L (21.0-32.0)
--- NOTE | 2019-09-27 06:48 | NUR ---
carbon dioxide levevl 42.2 this am 09-26-19 it was 42.[address] Brown office awatting call back
--- NOTE | 2019-09-27 07:00 | NUR ---
RECIEVED PT FROM FINISHER CARD TENDER. ALERT AND ORIENTED X4 UPON ENTERING. UP AD MICHAEL, POSSIBLE D/C FOR TODAY. RIGHT HAND IV, SALINE LOCKED. 4L O2 HUMIDIFIED VIA NC. TELEMETRY ON. LEFT PT RESTING COMFORTABLY. BED IN LOWEST POSITION, BED RAILS X2, CALL LIGHT WITHIN REACH. WILL CONTINUE TO MONITOR.
--- NOTE | 2019-09-27 08:43 | NUR ---
ADMINISTERED MORNING MEDICATION AT THIS TIME. PRN MORPHINE FOR PAIN 9/10 FOR BACK/CHEST PAIN. ASSESSMENT PERFORMED AT THIS TIME. DENIES ANY NEEDS. WILL CONTINUE TO MONITOR.
[2019-09-27] MEDS ORDERED: BROVANA15 MCG/2 M INH (10:05)
[2019-09-27] MEDS ORDERED: PREDNISONE10 MG PO (10:06)
[2019-09-27 11:05] VITALS: BP 112/64
--- NOTE | 2019-09-27 13:57 | NUR ---
ADMINISTERED PRN MORPHINE FOR PAIN OF 12/12. PT IS NOW SIGNING ALL NECESSARY DISCHARGE PAPERWORK. REMOVED IV FROM THE RIGHT HAND, CATHETER TIP INTACT. COVERED SITE WITH GAUZE AND TAPE. TOLERATED WELL. DENIES ANY NEEDS.
--- NOTE | 2019-09-28 16:32 | MORECARE ---
CASE MANAGEMENT DISCHARGE SUMMARY PATIENT: LANE ONEAL UNIT: [id number] ADM DATE: 09/21/19 AGE: 59 : 62 SEX: F ROOM/BED: D.2237 AUTHOR: MERA,DOC PHYSICIAN: REFERRING PHYSICIAN: OLIVIA VALADEZ MD DATE OF SERVICE: 09/28/19 Discharge Plan Patient Name: LANE ONEAL Facility: [facility]:[place] : 1960 Planned Disposition: Home Hlth Svc w Plan Readm Anticipated Discharge Date: Discharge Date: 09/27/2019 Expected LOS: Initial Reviewer: [id number] Initial Review Date: 09/26/2019 Generated: 09/28/19 5:32 pm Comments DCP- Discharge Planning Updated by [id number]: Ary Roy on 09/26/19 4:[address] Patient Name: LANE ONEAL Admission Status: Elective Accout number: [id number] Admission Date: 09-21-2019 : 1960 Admission Diagnosis:ACUTE AND CHRONIC RESPIRATORY FAILURE WITH HYPERCAPNIA Attending: DEB Current LOS: 5 Anticipated DC Date: Planned Disposition: Home Hlth Svc w Plan Readm Primary Insurance: [facility] MEDICARE SOLUTIONS Discharge Planning Comments: CM met with patient at bedside after explaining CM role and obtaining verbal consent. CM discussed availability / needs of home health, REHAB and medical equipment. WILL NEED M9 FROM [facility] FOR HER PORTABLE TANK, I WILL CALL THEM AT DISCHARGE. LAKESHIA SIGNED TO [facility]. IMM SIGNED. ANTICIPATE POSSIBLE DC TOMORROW. CM WILL FOLLOW AND ASSIST NEEDED. Erosion Control Specialist: Ary Roy DCPIA - Discharge Planning Initial Assessment Updated by [id number]: Ary Roy on 09/26/19 5:00 pm * Is the patient Alert and Oriented? Yes * PCP SHEEHAN * Pharmacy [facility] [address] * ADLs Independent * Other Equipment [facility], 02 - [facility] * Community resources currently utilized Home Health * Please name any agencies selected above. [facility] * Additional services required to return to the preadmission environment? No * Can the patient safely return to the preadmission environment? Yes * Has this patient been hospitalized within the prior 30 days at any hospital? No Coverage Notice Reviewer: [id number] Elysia Roy Notice Issued Date-Time: 09/26/2019 17:01 Notice Type: IM Discharge Notice Notice Delivered To: Patient Relationship to Patient: Fx Artist Name: Delivery Method: HAND - Hand Delivered Makenzie Days: Prior Verbal Notification: Recipient Understood Notice: Yes Recipient Signature: Yes Med Rec Note Co-signed by Attending: Coverage Notice Comment: Reviewer: [email or web address] Elysia Roy Notice Issued Date-Time: 09/26/2019 17:01 Notice Type: Patient Choice Letter Notice Delivered To: Patient Relationship to Patient: Fx Artist Name: Delivery Method: HAND - Hand Delivered Makenzie Days: Prior Verbal Notification: Recipient Understood Notice: Yes Recipient Signature: Yes Med Rec Note Co-signed by Attending: Coverage Notice Comment: LAKESHIA JACKSON. Last DP export: 09/26/19 4:10 p Patient Name: LANE ONEAL Page 28295 at 1632 All edits/amendments must be made on the electronic document DICTATION DATE: 09/28/19 1632 BARREL CLEANER: TAISHA 09/28/19 1632 RPT#: [id number] DC DATE:09/27/19 STATUS: DIS IN [facility] [address] [place] [address] END OF REPORT
== END 2019-09-27 14:28 | disposition home health service (06) | DRG 189 ==
LOC: D.ER 14:58 → D.MS 20:52
PROVIDERS: Family Medicine; ADMIT Family Medicine; ATTEND Family Medicine
DX: J96.22 Acute and chronic respiratory failure with hypercapnia (principal); I50.32 Chronic diastolic (congestive) heart failure; F17.213 Nicotine dependence, cigarettes, with withdrawal; J96.21 Acute and chronic respiratory failure with hypoxia; I10 Essential (primary) hypertension; F32.9 Major depressive disorder, single episode, unspecified; J44.9 Chronic obstructive pulmonary disease, unspecified; J30.9 Allergic rhinitis, unspecified; R05 Cough; I48.91 Unspecified atrial fibrillation; M19.90 Unspecified osteoarthritis, unspecified site; F41.8 Other specified anxiety disorders; R53.81 Other malaise; K21.9 Gastro-esophageal reflux disease without esophagitis

== ENCOUNTER → 2019-10-10 13:26 | Outpatient (CLI) | payer MEDICARE, MEDICAID ==
[2019-09-22 12:55] VITALS: BMI 21.9
== END | disposition home or self-care (01) ==
LOC: D.LAB 13:26
PROVIDERS: ATTEND Internal Medicine Pulmonary Disease
DX: Z11.59 Encounter for screening for other viral diseases (principal)

== ENCOUNTER 2019-10-10 14:23 | Inpatient (IN) | payer MEDICARE, MEDICAID ==
[~2019-10-10] VITALS: Ht 157.5 cm; Wt 54.9 kg
[2019-10-10 15:17] LABS: BASOPHILS 0.1 % (0-2); EOSINOPHILS 0.7 % (0-7); HEMATOCRIT 44.7 % (36.0-48.0); HEMOGLOBIN 13.2 g/dL (12-16); IMMATURE GRANULOCYTES 0.2 % (0-5); LYMPHOCYTES 10.2 % (15-50); MCH 30.4 pg (26.0-34.0); MCHC 29.5 g/dL (31.0-37.0); MEAN PLATELET VOLUME 9.6 fL (7.4-10.4); MONOCYTES 7.2 % (2-11); NEUTROPHILS 81.6 % (40-80); RBC 4.34 10x6/uL (4.00-5.40); RDW 13.3 % (11.5-14.5); WBC 11.4 10x3/uL (4.8-10.8)
[2019-10-10 15:28] LABS: PLATELET COUNT 210 10x3/uL (130-400)
[2019-10-10 16:21] LABS: CALC OSMOLALITY 273 mosm/kg (275-300); CALCIUM 8.5 mg/dL (8.5-10.1); CARBON DIOXIDE 36.6 mmol/L (21.0-32.0); CHLORIDE - SERUM 103 mmol/L (98-107); CREATININE - SERUM 0.6 mg/dL (0.6-1.3); GLUCOSE 113 mg/dL (74-106); POTASSIUM - SERUM 4.7 mmol/L (3.5-5.1); SODIUM 138 mmol/L (136-145); UREA NITROGEN 5 mg/dL (7-18); eGFR NON AFRICAN AMERICAN > 90 mL/min (90-120)
[2019-10-10 16:22] LABS: APTT 26.4 SECONDS (22.8-39.4); INR 0.86 (0.85-1.17); PROTIME 11.7 SECONDS (11.6-15.0)
[2019-10-10 16:37] LABS: ALBUMIN 3.1 g/dL (3.4-5.0); ALKALINE PHOSPHATASE 104 U/L (30-120); ALT (SGPT) 32 U/L (10-68); BILIRUBIN - TOTAL 0.56 mg/dL (0.2-1.3); CKMB 1.6 U/L (0.0-3.6); CREATINE KINASE 36 UL (21-215); MAGNESIUM - SERUM 1.6 mg/dL (1.8-2.4); PRO BNP 127 pg/mL (0-125); PROTEIN - SERUM 6.3 g/dL (6.4-8.2); TROPONIN-I < 0.017 ng/mL (0.000-0.060)
[2019-10-10 17:36] LABS: AMYLASE - SERUM 61 U/L (25-115); LIPASE 155 U/L (73-393)
[2019-10-10 20:45] VITALS: BP 106/70
--- NOTE | 2019-10-10 20:45 | NUR ---
PT FROM ER VIA W/C, PT AMBULATED TO BED, PT AAO X 3, RESP EVEN AND UNLABORED. NO DISTRESS NOTED, RESP PUT PT ON BIPAP AT THIS TIME. CL IN REACH, SR UP X 2.
[2019-10-10 21:50] LABS: CKMB 2.4 U/L (0.0-3.6); CREATINE KINASE 48 UL (21-215); TROPONIN-I < 0.017 ng/mL (0.000-0.060)
[2019-10-11] VITALS: BP 126/60
[2019-10-11 02:52] LABS: BASOPHILS 0 % (0-2); EOSINOPHILS 0 % (0-7); HEMATOCRIT 44.5 % (36.0-48.0); HEMOGLOBIN 13.3 g/dL (12-16); IMMATURE GRANULOCYTES 0.2 % (0-5); LYMPHOCYTES 6.9 % (15-50); MCH 30.4 pg (26.0-34.0); MCHC 29.9 g/dL (31.0-37.0); MCV 101.8 fL (80.0-100.0); MONOCYTES 0.6 % (2-11); NEUTROPHILS 92.3 % (40-80); RBC 4.37 10x6/uL (4.00-5.40); RDW 12.8 % (11.5-14.5)
[2019-10-11 02:53] LABS: PLATELET COUNT 156 10x3/uL (130-400); WBC 4.9 10x3/uL (4.8-10.8)
[2019-10-11 03:18] LABS: ALBUMIN 2.9 g/dL (3.4-5.0); ALKALINE PHOSPHATASE 108 U/L (30-120); ALT (SGPT) 30 U/L (10-68); BILIRUBIN - TOTAL 0.64 mg/dL (0.2-1.3); CALCIUM 8.2 mg/dL (8.5-10.1); CARBON DIOXIDE 38.1 mmol/L (21.0-32.0); CHLORIDE - SERUM 102 mmol/L (98-107); CKMB 2.1 U/L (0.0-3.6); CREATINE KINASE 33 UL (21-215); CREATININE - SERUM 0.7 mg/dL (0.6-1.3); GLUCOSE 132 mg/dL (74-106); POTASSIUM - SERUM 5.4 mmol/L (3.5-5.1); SODIUM 139 mmol/L (136-145); eGFR NON AFRICAN AMERICAN > 90 mL/min (90-120)
[2019-10-11 03:19] LABS: CALC OSMOLALITY 278 mosm/kg (275-300); TROPONIN-I < 0.017 ng/mL (0.000-0.060); UREA NITROGEN 11 mg/dL (7-18)
[2019-10-11 04:00] VITALS: BP 118/61
--- NOTE | 2019-10-11 07:30 | NUR ---
REPORT RECIEVED. PT SITTING UP IN BED. RR EVEN AND UNLABORED ON 3L. SHE HAS A R AC PIV THAT IS SL. BED LOCKED AND IN LOWEST POSITION, CALL LIGHT WITHIN REACH. WILL CTM
[2019-10-11 11:22] VITALS: BP 122/63
[2019-10-11 13:25] VITALS: Ht 157.5 cm; Wt 54.9 kg
--- NOTE | 2019-10-11 13:27 | NUR ---
SITTING UP SOB WITH CALL LIGHT IN REACH. RESP UL ON 02 2L NC. RIGHT WRIST SL INTACT. TELEMETRY SR 84. WILL CONT. PLAN OF CARE.
[2019-10-11 14:57] VITALS: BP 107/59
[2019-10-11 18:54] VITALS: BP 116/63
--- NOTE | 2019-10-11 19:30 | NUR ---
PT SETTING UP IN BED, AAO X 3, RESP EVEN AND UNLABORED. NO DISTRESS NOTED, CL IN REACH, SR UP X 2.
[2019-10-11 20:00] VITALS: BP 121/71
[2019-10-12] VITALS: BP 111/63
[2019-10-12 04:00] VITALS: BP 134/84
[2019-10-12 05:05] LABS: BASOPHILS 0 % (0-2); EOSINOPHILS 0 % (0-7); HEMATOCRIT 39.7 % (36.0-48.0); HEMOGLOBIN 12.2 g/dL (12-16); IMMATURE GRANULOCYTES 0.4 % (0-5); LYMPHOCYTES 9.3 % (15-50); MCH 30.3 pg (26.0-34.0); MCHC 30.7 g/dL (31.0-37.0); MEAN PLATELET VOLUME 9.4 fL (7.4-10.4); MONOCYTES 6.8 % (2-11); NEUTROPHILS 83.5 % (40-80); PLATELET COUNT 170 10x3/uL (130-400); RBC 4.02 10x6/uL (4.00-5.40); RDW 12.9 % (11.5-14.5); WBC 5.5 10x3/uL (4.8-10.8)
[2019-10-12 05:08] LABS: MCV 98.8 fL (80.0-100.0)
[2019-10-12 05:26] LABS: CALCIUM 8.9 mg/dL (8.5-10.1)
[2019-10-12 05:39] LABS: ANION GAP 5.3 mmol/L (8-16); CREATININE - SERUM 0.9 mg/dL (0.6-1.3); POTASSIUM - SERUM 4.5 mmol/L (3.5-5.1)
[2019-10-12 05:40] LABS: CARBON DIOXIDE 40.2 mmol/L (21.0-32.0)
[2019-10-12 09:34] VITALS: BP 120/66
[2019-10-12 12:00] VITALS: BP 98/54
--- NOTE | 2019-10-12 14:13 | NUR ---
IV SL INTACT TO RIGHT WRIST. RESTS IN BED WITH BIPAP ON. TELEMETRY SR 98. WILL CONT. PLAN OF CARE.
[2019-10-12 16:00] VITALS: BP 120/66
--- NOTE | 2019-10-12 19:30 | NUR ---
PT IN BED, AAO X 3, RESP EVEN AND UNLABORED. NO DISTRESS NOTED, CL IN REACH, SR UP X 2.
[2019-10-12 20:00] VITALS: BP 99/60
[2019-10-12 20:09] LABS: BILIRUBIN NEGATIVE (NEGATIVE); GLUCOSE NEGATIVE (NEGATIVE); KETONE NEGATIVE (NEGATIVE); NITRITE NEGATIVE (NEGATIVE); SPECIFIC GRAVITY 1.015 (1.005-1.020); UROBILINOGEN NORMAL (NORMAL)
[2019-10-12 20:23] LABS: UDS - AMPHET NEGATIVE QUAL (NEGATIVE); UDS - BARB NEGATIVE QUAL (NEGATIVE); UDS - BENZO NEGATIVE QUAL (NEGATIVE); UDS - COCAINE NEGATIVE QUAL (NEGATIVE); UDS - OPIATE POSITIVE QUAL (NEGATIVE); UDS - PCP NEGATIVE QUAL (NEGATIVE); UDS - THC NEGATIVE QUAL (NEGATIVE)
[2019-10-13 04:00] VITALS: BP 134/79
--- NOTE | 2019-10-13 07:15 | NUR ---
RECEIVED REPORT, ASSUMED CARE, A&O X3, SITTING UP IN BED WITH 3L NC ON, DENIES NEEDS, ASSESSMENT COMPLETE, CALL LIGHT IN REACH, BREATHING EVEN AND SHALLOW, IV SL TO RFA FLUSHES WELL, WILL CONTINUE POC
[2019-10-13 07:28] LABS: CALC OSMOLALITY 275 mosm/kg (275-300); CALCIUM 8.5 mg/dL (8.5-10.1); CARBON DIOXIDE 39.8 mmol/L (21.0-32.0); CHLORIDE - SERUM 96 mmol/L (98-107); CREATININE - SERUM 0.7 mg/dL (0.6-1.3); GLUCOSE 119 mg/dL (74-106); POTASSIUM - SERUM 4.5 mmol/L (3.5-5.1); SODIUM 136 mmol/L (136-145); UREA NITROGEN 21 mg/dL (7-18); eGFR NON AFRICAN AMERICAN > 90 mL/min (90-120)
[2019-10-13 08:11] LABS: HEMOGLOBIN 11.9 g/dL (12-16); LYMPHOCYTES 11.9 % (15-50); MCH 30.3 pg (26.0-34.0); MCHC 30.5 g/dL (31.0-37.0); MCV 99.2 fL (80.0-100.0); NEUTROPHILS 79.6 % (40-80); PLATELET COUNT 160 10x3/uL (130-400); RBC 3.93 10x6/uL (4.00-5.40); RDW 12.5 % (11.5-14.5); WBC 4.6 10x3/uL (4.8-10.8)
[2019-10-13 09:16] VITALS: BP 129/63
--- NOTE | 2019-10-13 19:30 | NUR ---
PT IN BED, AAO X 3, RESP EVEN AND UNLABORED. NO DISTRESS NOTED, CL IN REACH, SR UP X 2
[2019-10-13 20:28] VITALS: BP 112/63
--- NOTE | 2019-10-14 03:25 | NUR ---
I have reviewed this patient and I concur with the Shift Assessment completed by the Licensed Practical Nurse today this shift.
[2019-10-14 05:00] VITALS: BP 152/83
[2019-10-14 08:01] LABS: HEMATOCRIT 42.4 % (36.0-48.0); HEMOGLOBIN 13.2 g/dL (12-16); LYMPHOCYTES 4.8 % (15-50); MCH 30.6 pg (26.0-34.0); MCHC 31.1 g/dL (31.0-37.0); MCV 98.4 fL (80.0-100.0); MEAN PLATELET VOLUME 9.3 fL (7.4-10.4); PLATELET COUNT 171 10x3/uL (130-400); RBC 4.31 10x6/uL (4.00-5.40); RDW 12.6 % (11.5-14.5)
[2019-10-14 08:03] LABS: WBC 7.7 10x3/uL (4.8-10.8)
[2019-10-14 08:19] LABS: CALC OSMOLALITY 278 mosm/kg (275-300); CALCIUM 8.8 mg/dL (8.5-10.1); CHLORIDE - SERUM 94 mmol/L (98-107); CREATININE - SERUM 0.7 mg/dL (0.6-1.3); GLUCOSE 121 mg/dL (74-106); POTASSIUM - SERUM 4.1 mmol/L (3.5-5.1); SODIUM 137 mmol/L (136-145); UREA NITROGEN 24 mg/dL (7-18); eGFR NON AFRICAN AMERICAN > 90 mL/min (90-120)
[2019-10-14 08:24] LABS: CARBON DIOXIDE 42.9 mmol/L (21.0-32.0)
[2019-10-14 10:06] VITALS: BP 143/76
--- NOTE | 2019-10-14 19:31 | NUR ---
PT STATES NO NEEDS AT THIS TIME BED IS LOW AND LOCKED AND CALL LIGHT IS WITH PT
[2019-10-14 21:30] VITALS: BP 118/66
[2019-10-15 04:29] VITALS: BP 115/62
--- NOTE | 2019-10-15 06:30 | NUR ---
I have reviewed this patient and I concur with the Shift Assessment completed by the Licensed Practical Nurse today this shift.
--- NOTE | 2019-10-15 07:33 | NUR ---
REPORT RECIEVED. PT SITTING UP ON SIDE OF THE BED. RR EVEN AND UNLABORED ON 4L NC. SHE HAS A R FA PIV THAT IS SL. BED LOCKED AND IN LOWEST POSITION, CALL LIGHT WITHIN REACH. WILL CTM
--- NOTE | 2019-10-15 08:06 | EC ---
PATIENT:LANE ONEAL DATE OF SERVICE: 10/10/19 SEX: F MEDICAL RECORD: [id number] DATE OF : [birth year] LOCATION:D.M2 D.213 AGE OF PATIENT: 59 ADMISSION DATE: 10/10/19 REFERRING PHYSICIAN: INTERPRETING PHYSICIAN: OLIVIA VALENTINE MD ECHOCARDIOGRAM REPORT ECHO CHARGES 4 ECHO COMPLETE Date: 10/11/19 CLINICAL DIAGNOSIS: SOB ECHOCARDIOGRAPHIC MEASUREMENTS (adult normal given) AC root (d.<3.7cm) 2.0 cm LV Septum d (<1.2 cm> 0.8 cm Valve Excursion 1.1 cm LV Septum (systole) 1.4 cm Left Atria (s.<4.0cm> 3.1 cm LVPW d(<1.2cm) 1.1 cm RV (d.<2.3cm) 2.4 cm LVPW (sytole) 1.2 cm LV diastole(<5.6CM) 4.2 cm MV E-F(>70mm/sec) cm LV systole 3.1 cm LVOT Diameter 1.6 cm MV exc.(>10mm) cm Est.ejection fraction (50-75%) % DOPPLER: LVIT cm/sec A 94 cm/sec E 92 cm/sec LA cm/sec RVSP 20.3 mmHg LVOT 135 cm/sec AOP1/2T m/s Asc. Ao 203 cm/sec RVOT 70 cm/sec RA cm/sec PA 88 cm/sec AV Gradient Peak 16.4 mmHg AV Mean 7.4 mmHg AV Area 1.4 cm MV Gradient Peak mmHg MV Mean mmHg MV Area cm COMMENTS: Rn Mental Health: Ruddy [facility] Tapper Operator: 3 Dr. Johnson TAPE# PACS Pericardial Effusion N DATE OF SERVICE: Adequate 2D, color-flow imaging, spectral Doppler, and M-Mode No LVH. LV internal dimension is normal. Wall motion is normal. EF is greater than or equal to 55%. Aortic valve is tricuspid. No evidence of stenosis by Doppler interrogation. Left atrium is normal. Mitral valve shows no prolapse. Trace MR. Right-sided chambers are grossly normal. Trace TR. TRANSINT:[id number] Voice Confirmation ID: [id number] DOCUMENT ID: [id number] ECHOCARDIOGRAM REPORT [id number] LANE NOEAL OLIVIA VALENTINE MD at 0806 CC: [id number] DICTATION DATE: 10/12/19 0850 GARNISHMENT SPECIALIST: 10/12/19 1049 ADM IN [place] [address] [place] [address]
--- NOTE | 2019-10-15 08:54 | MORECARE ---
CASE MANAGEMENT DISCHARGE SUMMARY PATIENT: LANE ONEAL UNIT: [id number] ADM DATE: 10/10/19 AGE: 59 : 62 SEX: F ROOM/BED: D.2138 AUTHOR: EDWARD TESFAYE PHYSICIAN: REFERRING PHYSICIAN: STEVE FORBES MD DATE OF SERVICE: 10/15/19 Discharge Plan Patient Name: LANE ONEAL Facility: [facility]:[place] : 1960 Planned Disposition: Home Anticipated Discharge Date: Discharge Date: Expected LOS: Initial Reviewer: [email or web address] Initial Review Date: 10/10/2019 Generated: 10/15/19 9:54 am Patient Name: LANE ONEAL Page [phone] at 0854 All edits/amendments must be made on the electronic document DICTATION DATE: 10/15/1954 PARTS COUNTER SALESPERSON: TAISHA 10/15/19 0854 RPT#: [id number] DC DATE: STATUS: ADM IN [facility] [address] [place] [address] END OF REPORT
[2019-10-15 09:00] VITALS: BP 135/75
--- NOTE | 2019-10-15 09:09 | MORECARE ---
CASE MANAGEMENT DISCHARGE SUMMARY PATIENT: LANE ONEAL UNIT: [id number] ADM DATE: 10/10/19 AGE: 59 : 62 SEX: F ROOM/BED: D.2138 AUTHOR: EDWARD TESFAYE PHYSICIAN: REFERRING PHYSICIAN: STEVE FORBES MD DATE OF SERVICE: 10/15/19 Discharge Plan Patient Name: LANE ONEAL Facility: [facility]:[place] : 1960 Planned Disposition: Home Anticipated Discharge Date: Discharge Date: Expected LOS: Initial Reviewer: [email or web address] Initial Review Date: 10/10/2019 Generated: 10/15/19 10:09 am DCPIA - Discharge Planning Initial Assessment Updated by [email or web address]: Mary Mauricio on 10/15/19 9:02 am * Is the patient Alert and Oriented? Yes * How many steps to enter\exit or inside your home? 1/0 * PCP SHEEHAN * Pharmacy [facility] * Preadmission Environment Home with Family * ADLs Independent * Equipment [employer] Oxygen Ventilator * List name and contact numbers for known caregivers / representatives who currently or will assist patient after discharge: JOSEF [phone] * Verbal permission to speak to the caregivers and representatives has been obtained from the patient. Yes * Community resources currently utilized Other * Please name any agencies selected above. [facility] * Additional services required to return to the preadmission environment? No * Can the patient safely return to the preadmission environment? Yes * Has this patient been hospitalized within the prior 30 days at any hospital? Yes Last DP export: 10/15/19 7:54 a Patient Name: LANE ONEAL Page 02510 at 0909 All edits/amendments must be made on the electronic document DICTATION DATE: 10/15/19908 WARDROBE STYLIST: TAISHA 10/15/19908 RPT#: [id number] DC DATE: STATUS: ADM IN [facility] [address] [place] [address] END OF REPORT
--- NOTE | 2019-10-15 09:16 | MORECARE ---
CASE MANAGEMENT DISCHARGE SUMMARY PATIENT: LANE ONEAL UNIT: [id number] ADM DATE: 10/10/19 AGE: 59 : 62 SEX: F ROOM/BED: D.0342 AUTHOR: MERA,DOC PHYSICIAN: REFERRING PHYSICIAN: STEVE FORBES MD DATE OF SERVICE: 10/15/19 Discharge Plan Patient Name: LANE ONEAL Facility: [facility]:[place] : 1960 Planned Disposition: Home Anticipated Discharge Date: Discharge Date: Expected LOS: Initial Reviewer: [email or web address] Initial Review Date: 10/10/2019 Generated: 10/15/19 10:15 am DCP- Discharge Planning Updated by [email or web address]: Mary Mauricio on 10/15/19 8:[address] Patient Name: LANE ONEAL Admission Status: ER Accout number: [id number] Admission Date: 10-10-2019 : 1960 Admission Diagnosis:SHORTNESS OF BREATH Attending: STEVE FRANKS Current LOS: 5 Anticipated DC Date: Planned Disposition: Home Primary Insurance: [facility] MEDIC[employer] SOLUTIONS Discharge Planning Comments: CM met with patient to complete initial dc planning assessment. CM educated patient on the CM role and verbal consent given by patient to complete assessment. CM verified patient's address, phone number, and emergency contact phone numbers. Patient lives at home with her daughter Josef ([phone]). At discharge patient plans to return home and feels this is a safe discharge. CM discussed availability of home health, rehab services, and medical equipment. Patient would like to resume services with [facility], , and [facility] and [facility]. LAKESHIA signed. CM provided information about [facility], and [facility] for private duty nurse from [facility]. Patient denies other known discharge needs at this time. Transportation provider at discharge will be Josef. CM spoke with Ron from [employer] at [phone], and Jim from [facility] at [phone] adbout admission and faxed clinicals to update their records. CM will continue to follow and will assist as needed with dc plans/needs. Home Health Travel Ot: Mary Mauricio DCPIA - Discharge Planning Initial Assessment Updated by [email or web address]: Mary Mauricio on 10/15/19 9:02 am * Is the patient Alert and Oriented? Yes * How many steps to enter\exit or inside your home? 1/0 * PCP SISSY * Pharmacy [facility] * Preadmission Environment Home with Family * ADLs Independent * Equipment Grab Bars Oxygen Ventilator * List name and contact numbers for known caregivers / representatives who currently or will assist patient after discharge: JOSEF [phone] * Verbal permission to speak to the caregivers and representatives has been obtained from the patient. Yes * Community resources currently utilized Other * Please name any agencies selected above. [facility]/ [facility] * Additional services required to return to the preadmission environment? No * Can the patient safely return to the preadmission environment? Yes * Has this patient been hospitalized within the prior 30 days at any hospital? Yes Last DP export: 10/15/19 8:09 a Patient Name: LANE ONEAL Page 53218 at 0916 All edits/amendments must be made on the electronic document DICTATION DATE: 10/15/19914 CHEMICAL UNIT OPERATOR: TAISHA 10/15/19914 RPT#: [id number] DC DATE: STATUS: ADM IN [facility] [address] [place] [address] END OF REPORT
[2019-10-15 09:38] LABS: HEMATOCRIT 44.5 % (36.0-48.0); HEMOGLOBIN 13.7 g/dL (12-16); LYMPHOCYTES 18.5 % (15-50); MCH 30.5 pg (26.0-34.0); MCHC 30.8 g/dL (31.0-37.0); MCV 99.1 fL (80.0-100.0); MEAN PLATELET VOLUME 9.5 fL (7.4-10.4); NEUTROPHILS 67.4 % (40-80); PLATELET COUNT 187 10x3/uL (130-400); RBC 4.49 10x6/uL (4.00-5.40); RDW 12.9 % (11.5-14.5); WBC 7.8 10x3/uL (4.8-10.8)
[2019-10-15 09:52] LABS: ANION GAP 6.6 mmol/L (8-16); CALCIUM 8.7 mg/dL (8.5-10.1); POTASSIUM - SERUM 3.7 mmol/L (3.5-5.1)
[2019-10-15 09:56] LABS: CARBON DIOXIDE 40.1 mmol/L (21.0-32.0)
[2019-10-15] MEDS ORDERED: PREDNISONE10 MG PO (11:39)
[2019-10-15 12:00] VITALS: BP 113/66
--- NOTE | 2019-10-15 12:48 | MORECARE ---
CASE MANAGEMENT DISCHARGE SUMMARY PATIENT: LANE ONEAL UNIT: [id number] ADM DATE: 10/10/19 AGE: 59 : 62 SEX: F ROOM/BED: D.2445 AUTHOR: MERA,DOC PHYSICIAN: REFERRING PHYSICIAN: STEVE FORBES MD DATE OF SERVICE: 10/15/19 Discharge Plan Patient Name: LANE ONEAL Facility: [facility]:[place] : 1960 Planned Disposition: Home Anticipated Discharge Date: Discharge Date: Expected LOS: Initial Reviewer: [email or web address] Initial Review Date: 10/10/2019 Generated: 10/15/19 1:48 pm DCP- Discharge Planning Updated by [email or web address]: Mary Mauricio on 10/15/19 8:[address] Patient Name: LANE ONEAL Admission Status: ER Accout number: [id number] Admission Date: 10-10-2019 : 1960 Admission Diagnosis:SHORTNESS OF BREATH Attending: STEVE FRANKS Current LOS: 5 Anticipated DC Date: Planned Disposition: Home Primary Insurance: [facility] MEDICARE SOLUTIONS Discharge Planning Comments: CM met with patient to complete initial dc planning assessment. CM educated patient on the CM role and verbal consent given by patient to complete assessment. CM verified patient's address, phone number, and emergency contact phone numbers. Patient lives at home with her daughter Josef ([phone]). At discharge patient plans to return home and feels this is a safe discharge. CM discussed availability of home health, rehab services, and medical equipment. Patient would like to resume services with [facility], , and [facility] and [facility]. LAKESHIA signed. CM provided information about [facility], and [facility] for private security guard from [facility]. Patient denies other known discharge needs at this time. Transportation provider at discharge will be Josef. CM spoke with Ron from [email or web address] at [phone], and Jim from [facility] at [phone] adbout admission and faxed clinicals to update their records. CM will continue to follow and will assist as needed with dc plans/needs. Dexigraph Operator: Mary Mauricio DCPIA - Discharge Planning Initial Assessment Updated by [email or web address]: Mary Mauricio on 10/15/19 9:02 am * Is the patient Alert and Oriented? Yes * How many steps to enter\exit or inside your home? 1/0 * PCP SISSY * Pharmacy [facility] * Preadmission Environment Home with Family * ADLs Independent * Equipment Grab Bars Oxygen Ventilator * List name and contact numbers for known caregivers / representatives who currently or will assist patient after discharge: JOSEF [phone] * Verbal permission to speak to the caregivers and representatives has been obtained from the patient. Yes * Community resources currently utilized Other * Please name any agencies selected above. [facility]/ [facility] * Additional services required to return to the preadmission environment? No * Can the patient safely return to the preadmission environment? Yes * Has this patient been hospitalized within the prior 30 days at any hospital? Yes External Providers External Provider: [facility] Next Contact Date: Service Request Date: Service Type: Resolution: Reviewer: Comments: External Provider: Marline Next Contact Date: Service Request Date: Service Type: Resolution: Reviewer: Comments: Coverage Notice Reviewer: [email or web address] Elysia Mauricio Notice Issued Date-Time: 10/15/2019 8:45 Notice Type: IM Discharge Notice Notice Delivered To: Patient Relationship to Patient: Pediatric Clinical Nurse Specialist Name: Delivery Method: HAND - Hand Delivered Makenzie Days: Prior Verbal Notification: Recipient Understood Notice: Yes Recipient Signature: Yes Med Rec Note Co-signed by Attending: Coverage Notice Comment: DC IMM delivered, explained, signed by the patient, and placed in chart. Signed form also left with the patient. Reviewer: [id number] Elysia Mauricio Notice Issued Date-Time: 10/15/2019 8:45 Notice Type: Patient Choice Letter Notice Delivered To: Patient Relationship to Patient: Pediatric Clinical Nurse Specialist Name: Delivery Method: HAND - Hand Delivered Makenzie Days: Prior Verbal Notification: Recipient Understood Notice: Yes Recipient Signature: Yes Med Rec Note Co-signed by Attending: Coverage Notice Comment: CHOICE SIGNED TO RESUME BECCA NARANJO Last DP export: 10/15/19 8:16 a Patient Name: LANE ONEAL Page 14560 at 1248 All edits/amendments must be made on the electronic document DICTATION DATE: 10/15/191247 JAVA APPLICATION DEVELOPER: TAISHA 10/15/191247 RPT#: [id number] CA DATE: STATUS: ADM IN [facility] [address] [place] [address] END OF REPORT
--- NOTE | 2019-10-15 14:19 | NUR ---
DC PAPERWORK GONE OVER AND SIGNED WITH PT. ALL QUESTIONS ANSWERED. PIV REMOVED CATH TIP FULLY INTACT. PT WHEELED TO CAR TO DRIVE HERSELF HOME. ALL VALUBLES TAKEN WITH PT.
--- NOTE | 2019-10-15 16:49 | MORECARE ---
CASE MANAGEMENT DISCHARGE SUMMARY PATIENT: LANE ONEAL UNIT: [id number] ADM DATE: 10/10/19 AGE: 59 : 62 SEX: F ROOM/BED: D.2834 AUTHOR: MERA,DOC PHYSICIAN: REFERRING PHYSICIAN: STEVE FORBES MD DATE OF SERVICE: 10/15/19 Discharge Plan Patient Name: LANE ONEAL Facility: [facility]:[place] : 1960 Planned Disposition: Home Anticipated Discharge Date: Discharge Date: 10/15/2019 Expected LOS: Initial Reviewer: [email or web address] Initial Review Date: 10/10/2019 Generated: 10/15/19 5:48 pm DCP- Discharge Planning Updated by [email or web address]: Mary Mauricio on 10/15/19 8:[address] Patient Name: LANE ONEAL Admission Status: ER Accout number: [id number] Admission Date: 10-10-2019 : 1960 Admission Diagnosis:SHORTNESS OF BREATH Attending: STEVE FRANKS Current LOS: 5 Anticipated DC Date: Planned Disposition: Home Primary Insurance: [facility] MEDICARE SOLUTIONS Discharge Planning Comments: CM met with patient to complete initial dc planning assessment. CM educated patient on the CM role and verbal consent given by patient to complete assessment. CM verified patient's address, phone number, and emergency contact phone numbers. Patient lives at home with her daughter Josef ([phone]). At discharge patient plans to return home and feels this is a safe discharge. CM discussed availability of home health, rehab services, and medical equipment. Patient would like to resume services with [facility] for [facility], , and [facility] and [facility]. LAKESHIA signed. CM provided information about [facility], and [facility] for private chef from [facility]. Patient denies other known discharge needs at this time. Transportation provider at discharge will be Josef. CM spoke with Ron from [employer] at [phone], and Jim from [facility] at [phone] adbout admission and faxed clinicals to update their records. CM will continue to follow and will assist as needed with dc plans/needs. Respiratory Support Technician: Mary Mauricio DCPIA - Discharge Planning Initial Assessment Updated by [id number]: Mary Mauricio on 10/15/19 9:02 am * Is the patient Alert and Oriented? Yes * How many steps to enter\exit or inside your home? 1/0 * PCP SISSY * Pharmacy [facility] * Preadmission Environment Home with Family * ADLs Independent * Equipment Grab Bars Oxygen Ventilator * List name and contact numbers for known caregivers / representatives who currently or will assist patient after discharge: JOSEF [phone] * Verbal permission to speak to the caregivers and representatives has been obtained from the patient. Yes * Community resources currently utilized Other * Please name any agencies selected above. [facility]/ [facility] * Additional services required to return to the preadmission environment? No * Can the patient safely return to the preadmission environment? Yes * Has this patient been hospitalized within the prior 30 days at any hospital? Yes Coverage Notice Reviewer: [id number] Elysia Mauricio Notice Issued Date-Time: 10/15/2019 8:45 Notice Type: IM Discharge Notice Notice Delivered To: Patient Relationship to Patient: Nut Packer Name: Delivery Method: HAND - Hand Delivered Makenzie Days: Prior Verbal Notification: Recipient Understood Notice: Yes Recipient Signature: Yes Med Rec Note Co-signed by Attending: Coverage Notice Comment: DC IMM delivered, explained, signed by the patient, and placed in chart. Signed form also left with the patient. Reviewer: [id number] Elysia Mauricio Notice Issued Date-Time: 10/15/2019 8:45 Notice Type: Patient Choice Letter Notice Delivered To: Patient Relationship to Patient: Nut Packer Name: Delivery Method: HAND - Hand Delivered Makenzie Days: Prior Verbal Notification: Recipient Understood Notice: Yes Recipient Signature: Yes Med Rec Note Co-signed by Attending: Coverage Notice Comment: CHOICE SIGNED TO [facility] Last DP export: 10/15/19 11:48 a Patient Name: LANE ONEAL Page 26247 at 1649 All edits/amendments must be made on the electronic document DICTATION DATE: 10/15/191647 SANITARY CHEMIST: TAISHA 10/15/191647 RPT#: [id number] DC DATE:10/15/19 STATUS: DIS IN [facility] [address] [place] [address] END OF REPORT
== END 2019-10-15 14:30 | disposition home health service (06) | DRG 189 ==
LOC: D.ER 14:23 → D.M2 16:21
PROVIDERS: Family Medicine; ADMIT Family Medicine Adult Medicine; ATTEND Family Medicine Adult Medicine
DX: J96.22 Acute and chronic respiratory failure with hypercapnia (principal); J45.909 Unspecified asthma, uncomplicated; Z99.81 Dependence on supplemental oxygen; D75.89 Other specified diseases of blood and blood-forming organs; E87.5 Hyperkalemia; G47.33 Obstructive sleep apnea (adult) (pediatric); I25.10 Atherosclerotic heart disease of native coronary artery without angina pectoris; K27.9 Peptic ulcer, site unspecified, unspecified as acute or chronic, without hemorrhage or perforation; F41.8 Other specified anxiety disorders; I50.9 Heart failure, unspecified; J96.21 Acute and chronic respiratory failure with hypoxia; J20.9 Acute bronchitis, unspecified; K74.60 Unspecified cirrhosis of liver; I11.0 Hypertensive heart disease with heart failure; K21.9 Gastro-esophageal reflux disease without esophagitis; I48.0 Paroxysmal atrial fibrillation; J43.9 Emphysema, unspecified

== ENCOUNTER → 2019-10-22 14:35 | Outpatient (CLI) | payer MEDICARE, MEDICAID ==
[2019-10-11 13:25] VITALS: BMI 22.1
== END | disposition home or self-care (01) ==
LOC: D.RT 14:35
PROVIDERS: ATTEND Internal Medicine Pulmonary Disease
DX: J44.9 Chronic obstructive pulmonary disease, unspecified (principal); Z11.59 Encounter for screening for other viral diseases

== ENCOUNTER → 2020-01-14 11:28 | Outpatient (CLI) | payer MEDICARE, MEDICAID ==
[2019-10-11 13:25] VITALS: BMI 22.1
[2020-01-14 12:10] LABS: BASOPHILS 0.2 % (0-2); EOSINOPHILS 1.2 % (0-7); HEMATOCRIT 45.7 % (36.0-48.0); HEMOGLOBIN 13.8 g/dL (12-16); LYMPHOCYTES 34.2 % (15-50); MCH 29.6 pg (26.0-34.0); MCHC 30.2 g/dL (31.0-37.0); MCV 98.1 fL (80.0-100.0); MEAN PLATELET VOLUME 9.6 fL (7.4-10.4); MONOCYTES 11.2 % (2-11); NEUTROPHILS 53.2 % (40-80); PLATELET COUNT 167 10x3/uL (130-400); RBC 4.66 10x6/uL (4.00-5.40); RDW 12.8 % (11.5-14.5); WBC 4.8 10x3/uL (4.8-10.8)
[2020-01-14 12:43] LABS: ALBUMIN 3.3 g/dL (3.4-5.0); ALKALINE PHOSPHATASE 99 U/L (30-120); ALT (SGPT) 20 U/L (10-68); BILIRUBIN - TOTAL 0.61 mg/dL (0.2-1.3); CALC OSMOLALITY 275 mosm/kg (275-300); CALCIUM 8.6 mg/dL (8.5-10.1); CARBON DIOXIDE 37.3 mmol/L (21.0-32.0); CHLORIDE - SERUM 99 mmol/L (98-107); CREATININE - SERUM 0.8 mg/dL (0.6-1.3); GLUCOSE 91 mg/dL (74-106); POTASSIUM - SERUM 4.8 mmol/L (3.5-5.1); PROTEIN - SERUM 5.9 g/dL (6.4-8.2); SODIUM 139 mmol/L (136-145); UREA NITROGEN 6 mg/dL (7-18); eGFR NON AFRICAN AMERICAN 78 mL/min (90-120)
== END | disposition home or self-care (01) ==
LOC: D.RT 10-11 14:00 → D.LAB 11:28
PROVIDERS: ATTEND Internal Medicine Pulmonary Disease
DX: J44.9 Chronic obstructive pulmonary disease, unspecified (principal)

== ENCOUNTER 2020-06-08 20:58 | Inpatient (IN) | payer MEDICARE, MEDICAID ==
[~2020-06-08] VITALS: Ht 157.5 cm; Wt 51.3 kg
[~2020-06-08 20:58] MED LIST changes: +CARDIZEM120 MG PO; -INDERAL10 MG PO; +PROPRANOLOL HCL20 MG PO
[2020-06-08 21:39] LABS: BASOPHILS 0.2 % (0-2); HEMATOCRIT 44.6 % (36.0-48.0); HEMOGLOBIN 13.9 g/dL (12-16); IMMATURE GRANULOCYTES 0.2 % (0-5); LYMPHOCYTE ABS# 1.02 10x3/uL (1.18-3.74); LYMPHOCYTES 25.4 % (15-50); MCH 29.3 pg (26.0-34.0); MCHC 31.2 g/dL (31.0-37.0); MCV 94.1 fL (80.0-100.0); MEAN PLATELET VOLUME 9.5 fL (7.4-10.4); MONOCYTES 16.9 % (2-11); NEUTROPHIL ABS# 2.26 10x3/uL (1.56-6.13); NEUTROPHILS 56.3 % (40-80); RBC 4.74 10x6/uL (4.00-5.40); RDW 11.9 % (11.5-14.5)
[2020-06-08 21:45] LABS: PLATELET COUNT 105 10x3/uL (130-400)
[2020-06-08 22:00] VITALS: BP 102/61
[2020-06-08 22:06] LABS: ALBUMIN 3.4 g/dL (3.4-5.0); ALKALINE PHOSPHATASE 104 U/L (30-120); ALT (SGPT) 16 U/L (10-68); BILIRUBIN - TOTAL 0.68 mg/dL (0.2-1.3); CALC OSMOLALITY 253 mosm/kg (275-300); CALCIUM 8.2 mg/dL (8.5-10.1); CHLORIDE - SERUM 88 mmol/L (98-107); CREATINE KINASE 64 UL (21-215); CREATININE - SERUM 0.7 mg/dL (0.6-1.3); GLUCOSE 80 mg/dL (74-106); MAGNESIUM - SERUM 1.6 mg/dL (1.8-2.4); POTASSIUM - SERUM 4.8 mmol/L (3.5-5.1); PRO BNP 52 pg/mL (0-125); PROTEIN - SERUM 6.6 g/dL (6.4-8.2); SODIUM 128 mmol/L (136-145); TROPONIN-I < 0.017 ng/mL (0.000-0.060); UREA NITROGEN 8 mg/dL (7-18); eGFR NON AFRICAN AMERICAN > 90 mL/min (90-120)
[2020-06-08 22:21] LABS: CARBON DIOXIDE 42.7 mmol/L (21.0-32.0)
[2020-06-08 23:00] VITALS: BP 105/59
--- NOTE | 2020-06-09 00:23 | NUR ---
PT TO ROOM 2113 VIA STRETCHER ACCOMPANIED BY HOSPITAL STAFF.
[2020-06-09 00:32] VITALS: BP 152/70
[2020-06-09] MEDS ORDERED: LANOXIN125 MCG PO (01:01)
[2020-06-09] MEDS ORDERED: CARDIZEM30 MG (02:20)
[2020-06-09 02:25] VITALS: BP 152/70; BMI 20.7
[2020-06-09 02:25] LABS: BILIRUBIN NEGATIVE (NEGATIVE); KETONE MODERATE mg/dL (NEGATIVE); NITRITE NEGATIVE (NEGATIVE); UROBILINOGEN NORMAL mg/dL (< 2)
[2020-06-09 05:52] LABS: APTT 25.8 SECONDS (22.8-39.4); INR 1.06 (0.85-1.17); PROTIME 12.8 SECONDS (11.6-15.0)
[2020-06-09 05:53] LABS: D-DIMER-QUANTITATIVE 0.58 ug/mLFEU (0.20-0.54)
--- NOTE | 2020-06-09 07:19 | NUR ---
NOTIFIED BY RESP THERAPIST THAT PT IS REQUESTING PAIN MEDICATION. GAVE 2MG OF MORPHINE FOR PAIN LEVEL OF 8/10. A/O X4, RESP EVEN AND NONLABORED ON 4LNC. RT HAND IV INFUSING NS AT 75. PT DENIES ANY OTHER NEEDS AT THIS TIME. CALL LIGHT IN REACH, NAD NOTED, WILL CONTINUE PLAN OF CARE.
--- NOTE | 2020-06-09 10:01 | NUR ---
CALLED PHARMACY AND SPOKE WITH MARLI, INFORMED HER THAT I NEED CARDIZEM FOR PT WAS DUE AT 0900.
[2020-06-09 11:00] VITALS: BP 126/60
--- NOTE | 2020-06-09 11:31 | NUR ---
2MG OF MORPHINE GIVEN FOR PAIN LEVEL OF 9/10, ALSO HUNG NEW BAG OF NS. PT DENIES ANY OTHER NEEDS, CALL LIGHT IN REACH.
[2020-06-09 12:09] VITALS: Ht 157.5 cm; Wt 51.3 kg
--- NOTE | 2020-06-09 15:40 | NUR ---
GAVE 2MG OF MORPHINE FOR PAIN LEVEL OF 10/10. PT DENIES ANY OTHER NEEDS AT THIS TIME. CALL LIGHT IN REACH.
[2020-06-09 19:35] VITALS: BP 133/69
--- NOTE | 2020-06-09 19:45 | NUR ---
RECIEVED SITTING UP IN BED WITH EYES OPEN AND TV ON. ALERT AND ORIENTED X4. UP AD MICHAEL TO B/R. O2@ 4 LITERS PER N/C. IV TO LT FA WITH NS @ 75CC /HR . DENIES ANY NEEDS AT THIS TIME.
[2020-06-09 22:48] VITALS: BP 133/67
[2020-06-10 05:40] LABS: HEMATOCRIT 39.6 % (36.0-48.0); HEMOGLOBIN 12.2 g/dL (12-16); LYMPHOCYTE ABS# 0.28 10x3/uL (1.18-3.74); MCH 28.8 pg (26.0-34.0); MCHC 30.8 g/dL (31.0-37.0); MCV 93.6 fL (80.0-100.0); MEAN PLATELET VOLUME 10.3 fL (7.4-10.4); NEUTROPHIL ABS# 2.17 10x3/uL (1.56-6.13); PLATELET COUNT 116 10x3/uL (130-400); RBC 4.23 10x6/uL (4.00-5.40)
[2020-06-10 05:52] LABS: WBC 2.7 10x3/uL (4.8-10.8)
[2020-06-10 05:59] LABS: CALCIUM 8.3 mg/dL (8.5-10.1); CARBON DIOXIDE 39.4 mmol/L (21.0-32.0); CHLORIDE - SERUM 94 mmol/L (98-107); CREATININE - SERUM 0.6 mg/dL (0.6-1.3); MAGNESIUM - SERUM 1.7 mg/dL (1.8-2.4); PHOSPHOROUS 3.6 mg/dL (2.5-4.9); POTASSIUM - SERUM 4.9 mmol/L (3.5-5.1); SODIUM 133 mmol/L (136-145); eGFR NON AFRICAN AMERICAN > 90 mL/min (90-120)
[2020-06-10 06:01] LABS: CALC OSMOLALITY 267 mosm/kg (275-300); GLUCOSE 125 mg/dL (74-106); UREA NITROGEN 14 mg/dL (7-18)
[2020-06-10 07:39] VITALS: BP 144/86
[2020-06-10 09:17] LABS: EOSINOPHILS 2 % (0-7); LYMPHOCYTES 28 % (15-50); MONOCYTES 11 % (2-11); NEUTROPHILS 59 % (40-80); PLATELET ESTIMATE DECREASED
[2020-06-10 11:54] VITALS: BP 107/50
[2020-06-10 15:49] VITALS: BP 148/70
--- NOTE | 2020-06-10 19:37 | NUR ---
RECIEVED UP IN BED WITH EYES OPENA ND TV ON. ALERT AND ORIENTED X4. UP AD MICHAEL TO B/R. O2@ 4 LITERS PER N/C IN PLACE. SCD,S ON AND FUNCTIONING PROPERLY. IV TO LT HAND WITH NS AT 75CC/HR. TELEMETRY IN PLACE. DENIES ANY NEEDS AT THIS TIME.
[2020-06-10 20:00] VITALS: BP 121/76
[2020-06-11] VITALS: BP 118/59; BP 128/70
[2020-06-11 04:00] VITALS: BP 128/69
[2020-06-11 05:38] LABS: BASOPHILS 0 % (0-2); EOSINOPHILS 0 % (0-7); HEMATOCRIT 39.6 % (36.0-48.0); HEMOGLOBIN 12.1 g/dL (12-16); LYMPHOCYTE ABS# 0.29 10x3/uL (1.18-3.74); LYMPHOCYTES 6.6 % (15-50); MCH 28.7 pg (26.0-34.0); MCHC 30.6 g/dL (31.0-37.0); MCV 93.8 fL (80.0-100.0); MEAN PLATELET VOLUME 10.3 fL (7.4-10.4); MONOCYTES 6.6 % (2-11); NEUTROPHIL ABS# 3.83 10x3/uL (1.56-6.13); NEUTROPHILS 86.8 % (40-80); PLATELET COUNT 119 10x3/uL (130-400); RBC 4.22 10x6/uL (4.00-5.40); RDW 12.2 % (11.5-14.5)
[2020-06-11 05:49] LABS: WBC 4.4 10x3/uL (4.8-10.8)
[2020-06-11 05:56] LABS: CALC OSMOLALITY 261 mosm/kg (275-300); CALCIUM 8.3 mg/dL (8.5-10.1); CARBON DIOXIDE 37.9 mmol/L (21.0-32.0); CHLORIDE - SERUM 95 mmol/L (98-107); CREATININE - SERUM 0.5 mg/dL (0.6-1.3); GLUCOSE 121 mg/dL (74-106); PHOSPHOROUS 2.4 mg/dL (2.5-4.9); POTASSIUM - SERUM 4.7 mmol/L (3.5-5.1); SODIUM 130 mmol/L (136-145); UREA NITROGEN 13 mg/dL (7-18); eGFR NON AFRICAN AMERICAN > 90 mL/min (90-120)
[2020-06-11 08:10] VITALS: BP 165/72
[2020-06-11 11:38] VITALS: BP 128/86
[2020-06-11 16:11] VITALS: BP 137/74
--- NOTE | 2020-06-11 18:54 | NUR ---
RESTING QUIETLY IN BED. NO DISTRESS NOTED. WILL CONTINUE TO MONITOR
--- NOTE | 2020-06-11 19:53 | NUR ---
RECIEVED UP IN BED WITH EYES CLOSED. AROUSES WITH VERBAL STIMULI. A/O X4. UP AD MICHAEL TO B/R. REMAINS ON 4 LITERS OF O2 CONT.. TELEMETRY IN PLACE. REQUEST PAIN MED AND NAUSEA MEDICATION AT HOURS OF SLEEP.
[2020-06-11 20:42] VITALS: BP 134/74
[2020-06-12 04:00] VITALS: BP 151/72
[2020-06-12 06:16] LABS: BASOPHILS 0 % (0-2); EOSINOPHILS 0 % (0-7); HEMOGLOBIN 13.4 g/dL (12-16); IMMATURE GRANULOCYTES 0.3 % (0-5); LYMPHOCYTE ABS# 0.23 10x3/uL (1.18-3.74); LYMPHOCYTES 7.6 % (15-50); MCH 29.6 pg (26.0-34.0); MCHC 31.2 g/dL (31.0-37.0); MCV 94.9 fL (80.0-100.0); MEAN PLATELET VOLUME 10.2 fL (7.4-10.4); MONOCYTES 7.2 % (2-11); NEUTROPHIL ABS# 2.58 10x3/uL (1.56-6.13); NEUTROPHILS 84.9 % (40-80); PLATELET COUNT 126 10x3/uL (130-400); RBC 4.53 10x6/uL (4.00-5.40); RDW 12.4 % (11.5-14.5)
[2020-06-12 06:45] LABS: CALC OSMOLALITY 265 mosm/kg (275-300); CALCIUM 8.3 mg/dL (8.5-10.1); CARBON DIOXIDE 36.7 mmol/L (21.0-32.0); CHLORIDE - SERUM 94 mmol/L (98-107); CREATININE - SERUM 0.6 mg/dL (0.6-1.3); GLUCOSE 141 mg/dL (74-106); MAGNESIUM - SERUM 1.8 mg/dL (1.8-2.4); PHOSPHOROUS 3.4 mg/dL (2.5-4.9); POTASSIUM - SERUM 4.3 mmol/L (3.5-5.1); SODIUM 131 mmol/L (136-145); UREA NITROGEN 14 mg/dL (7-18); eGFR NON AFRICAN AMERICAN > 90 mL/min (90-120)
[2020-06-12 08:32] VITALS: BP 164/86
--- NOTE | 2020-06-12 10:07 | NUR ---
Nutrition Follow-up: Overall good PO intake reported. Denies N/V/C/D. ST signed off. Noted ok to d/c when ok with pulm. Diet: Cardiac PO intake: 75-100% yesterday No new wt; last wt: 113# (06/09) Last BM: 06/12 Labs noted: Na 131, Glu 141, Ca 8.3 Meds noted: Solumedrol, Protonix, Zofran, NS @ 75, electrolyte protocol -RD will follow up within 5-7 days if pt still admitted.
[2020-06-12 11:00] VITALS: BP 150/81
--- NOTE | 2020-06-12 18:52 | MORECARE ---
CASE MANAGEMENT DISCHARGE SUMMARY PATIENT: LANE ONEAL UNIT: [id number] ADM DATE: 06/08/20 AGE: 59 : 62 SEX: F ROOM/BED: D.3 AUTHOR: EDWARD TESFAYE PHYSICIAN: REFERRING PHYSICIAN: LORI REBOLLEDO MD DATE OF SERVICE: 06/12/20 Discharge Plan Patient Name: LANE ONEAL Facility: [facility]:[place] : 1960 Planned Disposition: Home Anticipated Discharge Date: Discharge Date: Expected LOS: Initial Reviewer: [email or web address] Initial Review Date: 06/09/2020 Generated: 06/12/20 7:51 pm Patient Name: LANE ONEAL Page 16183 at 1852 All edits/amendments must be made on the electronic document DICTATION DATE: 06/12/201850 NANOTECHNOLOGY ENGINEERING TECHNICIAN: TAISHA 06/12/201850 RPT#: [id number] DC DATE: STATUS: ADM IN [facility] [address] [place] [address] END OF REPORT
--- NOTE | 2020-06-12 18:58 | MORECARE ---
CASE MANAGEMENT DISCHARGE SUMMARY PATIENT: LANE ONEAL UNIT: [id number] ADM DATE: 06/08/20 AGE: 59 : 62 SEX: F ROOM/BED: D.2113 AUTHOR: EDWARD TESFAEY PHYSICIAN: REFERRING PHYSICIAN: LORI REBOLLEDO MD DATE OF SERVICE: 06/12/20 Discharge Plan Patient Name: LANE ONEAL Facility: [facility]:[place] : 1960 Planned Disposition: Home Anticipated Discharge Date: Discharge Date: Expected LOS: Initial Reviewer: [email or web address] Initial Review Date: 06/09/2020 Generated: 06/12/20 7:58 pm DCPIA - Discharge Planning Initial Assessment Updated by [email or web address]: Uma Delgado on 06/12/20 6:58 pm * Is the patient Alert and Oriented? Yes * How many steps to enter\exit or inside your home? * PCP SHEEHAN * Pharmacy [facility] * Preadmission Environment Home with Family * ADLs Independent * Equipment Walker * Other Equipment TRILOGY, HOME/ PORTABLE 02, NEBULIZER, * List name and contact numbers for known caregivers / representatives who currently or will assist patient after discharge: Nadia Lin - [facility] -[phone] * Verbal permission to speak to the caregivers and representatives has been obtained from the patient. Yes * Community resources currently utilized None * Additional services required to return to the preadmission environment? No * Can the patient safely return to the preadmission environment? Yes * Has this patient been hospitalized within the prior 30 days at any hospital? No Last DP export: 06/12/20 5:52 p Patient Name: LANE ONEAL Page 43100 at 1858 All edits/amendments must be made on the electronic document DICTATION DATE: 06/12/201857 FOREST ECONOMICS PROFESSOR: TAISHA 06/12/201857 RPT#: [id number] DC DATE: STATUS: ADM IN [facility] [address] [place] [address] END OF REPORT
--- NOTE | 2020-06-12 19:05 | MORECARE ---
CASE MANAGEMENT DISCHARGE SUMMARY PATIENT: LANE ONEAL UNIT: [id number] ADM DATE: 06/08/20 AGE: 59 : 62 SEX: F ROOM/BED: D.2771 AUTHOR: MERA,DOC PHYSICIAN: REFERRING PHYSICIAN: LORI REBOLLEDO MD DATE OF SERVICE: 06/12/20 Discharge Plan Patient Name: LANE ONEAL Facility: [facility]:[place] : 1960 Planned Disposition: Home Anticipated Discharge Date: Discharge Date: Expected LOS: Initial Reviewer: [email or web address] Initial Review Date: 06/09/2020 Generated: 06/12/20 8:04 pm Comments DCP- Discharge Planning Updated by [email or web address]: Uma Delgado on 06/12/20 6:[address] Patient Name: LANE ONEAL Admission Status: ER Accout number: [id number] Admission Date: 06-08-2020 : 1960 Admission Diagnosis:SHORTNESS OF BREATH Attending: LORI REBOLLEDO Current LOS: 4 Anticipated DC Date: Planned Disposition: Home Primary Insurance: [facility] [employer]UTIONS Discharge Planning Comments: CM spoke with patient to complete initial dc planning assessment. CM educated patient on the CM role and verbal consent given by patient to complete assessment. Patient lives at home with her mother. Patient is independent. At discharge patient plans to return home and feels this is a safe discharge. CM discussed availability of home health, rehab services, and medical equipment. [facility] Patient will have family to transport home. Patient denied known discharge needs at this time. D/C IMM signed CM will continue to follow and will assist as needed with dc plans/needs. Shoe Treer: Uma Delgado DCPIA - Discharge Planning Initial Assessment Updated by [email or web address]: Uma Delgado on 06/12/20 6:58 pm * Is the patient Alert and Oriented? Yes * How many steps to enter\exit or inside your home? * PCP SHEEHAN * Pharmacy [facility] * Preadmission Environment Home with Family * ADLs Independent * Equipment Walker * Other Equipment TRILOGY, HOME/ PORTABLE 02, NEBULIZER, * List name and contact numbers for known caregivers / representatives who currently or will assist patient after discharge: Nadia Lin - [facility] -[phone] * Verbal permission to speak to the caregivers and representatives has been obtained from the patient. Yes * Community resources currently utilized None * Additional services required to return to the preadmission environment? No * Can the patient safely return to the preadmission environment? Yes * Has this patient been hospitalized within the prior 30 days at any hospital? No Coverage Notice Reviewer: [email or web address] Elysia Delgado Notice Issued Date-Time: 06/12/2020 13:55 Notice Type: IM Discharge Notice Notice Delivered To: Patient Relationship to Patient: Self Flooring Machine Feeder Name: Delivery Method: HAND - Hand Delivered Makenzie Days: Prior Verbal Notification: Recipient Understood Notice: Yes Recipient Signature: Yes Med Rec Note Co-signed by Attending: Coverage Notice Comment: Last DP export: 06/12/20 5:58 p Patient Name: LANE ONEAL Page 46042 at 1905 All edits/amendments must be made on the electronic document DICTATION DATE: 06/12/201904 PAEDODONTIST: TAISHA 06/12/201904 RPT#: [id number] DC DATE: STATUS: ADM IN [facility] [address] [place] [address] END OF REPORT
[2020-06-12 20:32] VITALS: BP 145/70
--- NOTE | 2020-06-12 23:30 | NUR ---
PT IS LAYING IN BED ON LEFT SIDE. PT COMPLAINS OF PAIN, TREATED WITH PRN PAIN MEDICATION. IV INTACT WITH MAINTENANCE FLUIDS ORDERED. PT WEARING OXYGEN AND DENIES SOB. CPAP FROM HOME AT BEDSIDE. PT HAS A STEADY GAIT AND AMBULATED TO BATHROOM WITH NO ASSISTANCE.
[2020-06-13 04:20] VITALS: BP 163/89
[2020-06-13 05:42] LABS: HEMATOCRIT 40.9 % (36.0-48.0); HEMOGLOBIN 12.6 g/dL (12-16); MCH 28.9 pg (26.0-34.0); MCHC 30.8 g/dL (31.0-37.0); MCV 93.8 fL (80.0-100.0); MEAN PLATELET VOLUME 9.9 fL (7.4-10.4); NEUTROPHIL ABS# 1.54 10x3/uL (1.56-6.13); PLATELET COUNT 108 10x3/uL (130-400); RBC 4.36 10x6/uL (4.00-5.40); RDW 12.3 % (11.5-14.5); WBC 2.3 10x3/uL (4.8-10.8)
[2020-06-13 06:23] LABS: CALC OSMOLALITY 264 mosm/kg (275-300); CALCIUM 8.2 mg/dL (8.5-10.1); CARBON DIOXIDE 37.8 mmol/L (21.0-32.0); CHLORIDE - SERUM 96 mmol/L (98-107); CREATININE - SERUM 0.5 mg/dL (0.6-1.3); GLUCOSE 103 mg/dL (74-106); MAGNESIUM - SERUM 1.8 mg/dL (1.8-2.4); PHOSPHOROUS 3.1 mg/dL (2.5-4.9); POTASSIUM - SERUM 4.1 mmol/L (3.5-5.1); SODIUM 133 mmol/L (136-145); UREA NITROGEN 11 mg/dL (7-18); eGFR NON AFRICAN AMERICAN > 90 mL/min (90-120)
--- NOTE | 2020-06-13 07:30 | NUR ---
PT LYING IN BED ON LEFT SIDE. RESP EVEN AND UNLABORED. O2 VIA NC AT 4 L INTACT. AAOX4. PT APPEARS AGITATED. PT STATES PEOPLE KEEP PLAYING TRICKS ON HER. IV TO LEFT HAND PATENT AND INFUSING NS @ 75 mL/HOUR. PT DENIES NEEDS AT THIS TIME. CALL LIGHT AND WATER IN REACH. BED IN LOWEST POSITION. SIDE RAILS X2.
[2020-06-13 08:23] VITALS: BP 175/91
--- NOTE | 2020-06-13 10:02 | NUR ---
PT IS AGITATED AND STATES SHE WILL NOT TAKE HER MEDS UNTIL THE NURSE GIVES HER MORPHINE FOR PAIN. 0.5 ML OF MORPHINE WAS ADMINSTERED AT 0854 PER ORDER. PT REFUSES TO BELIEVE SHE RECEIVED MORPHINE AND REFUSES TO TAKE MEDS. WILL NOTIFY STATION MANAGER
--- NOTE | 2020-06-13 10:59 | NUR ---
PT APPEARS LESS AGITATED AT THIS TIME. AM PO MEDS ADMINISTERED PER JUN.
[2020-06-13 11:51] VITALS: BP 171/85
[2020-06-13 12:57] LABS: LYMPHOCYTES 30 % (15-50); MONOCYTES 6 % (2-11); NEUTROPHILS 62 % (40-80); PLATELET ESTIMATE DECREASED
[2020-06-13 12:58] LABS: ANISOCYTOSIS OCC; ROULEAUX OCC
[2020-06-13 15:14] VITALS: BP 145/86
--- NOTE | 2020-06-13 19:06 | NUR ---
SEVERAL MEDICATIONS FOUND IN PTS ROOM IN BELONGINGS. MEDS COUNTED WITH WITNESS. [facility] SOME BOTTLES UNLABLED OR EMPTY.
--- NOTE | 2020-06-13 20:00 | NUR ---
INITIAL ROUNDS AND ASSESSMENT COMPLETED. PT RESTING IN BED, WATCHING TV. O2 @ 4L/NC WITH NONLABORED RESPIRATIONS. NS @ 75ML/HR INFUSING TO LEFT HAND.SR PER TELEMETRY. SLOW TO RESPOND TO QUESTIONS WITH NURSE. CALL LIGHT IN REACH.
[2020-06-13 20:46] VITALS: BP 150/82
[2020-06-14 04:00] VITALS: BP 115/82
[2020-06-14 11:00] VITALS: BP 182/99
--- NOTE | 2020-06-14 12:49 | NUR ---
FAMILY MEMBER SPOKE TO PT AND TALKED HER INTO TAKING HER MEDS.
--- NOTE | 2020-06-14 16:02 | NUR ---
UP AMBULATING HALLWAY. GAIT STEADY.
--- NOTE | 2020-06-14 19:42 | NUR ---
RECEIVED REPORT, WILL ASSUME CARE OF PT, SITTING UP IN BED, DENIES ANY NEEDS AT THIS TIME, BED IS LOW, SRX2, CALL LIGHT IN REACH, WILL CONTINUE PLAN OF CARE
[2020-06-14 21:54] VITALS: BP 144/84
--- NOTE | 2020-06-15 01:28 | NUR ---
AFTER SPEAKING WITH SISTER IN LAW AND DAUGHTER , PT STILL DECIDED TO LEAVE AMA, KARRIE JIANG AND MYSELF EXPLAIN THE RISK AND BENEFITS TO PT, PT CALL TAXI AND TOOK ALL BELONGING WITH HER, FAMILY AWARE THAT SHE WAS PLANNING ON LEAVING AMA
--- NOTE | 2020-06-16 08:21 | MORECARE ---
CASE MANAGEMENT DISCHARGE SUMMARY PATIENT: LANE ONEAL UNIT: [id number] ADM DATE: 06/08/20 AGE: 59 : 62 SEX: F ROOM/BED: D.7332 AUTHOR: MERA,DOC PHYSICIAN: REFERRING PHYSICIAN: LORI REBOLLEDO MD DATE OF SERVICE: 06/16/20 Discharge Plan Patient Name: LANE ONEAL Facility: [facility]:[place] : 1960 Planned Disposition: Home Anticipated Discharge Date: Discharge Date: 06/15/2020 Expected LOS: Initial Reviewer: [id number] Initial Review Date: 06/09/2020 Generated: 06/16/20 9:20 am Comments DCP- Discharge Planning Updated by [email or web address]: Uma Delgado on 06/12/20 5:[address] Patient Name: LANE ONEAL Admission Status: ER Accout number: [id number] Admission Date: 06-08-2020 : 1960 Admission Diagnosis:SHORTNESS OF BREATH Attending: LORI REBOLLEDO Current LOS: 4 Anticipated DC Date: Planned Disposition: Home Primary Insurance: [facility] [employer] Discharge Planning Comments: CM spoke with patient to complete initial dc planning assessment. CM educated patient on the CM role and verbal consent given by patient to complete assessment. Patient lives at home with her mother. Patient is independent. At discharge patient plans to return home and feels this is a safe discharge. CM discussed availability of home health, rehab services, and medical equipment. Patient uses [facility] for DME needs. Patient will have family to transport home. Patient denied known discharge needs at this time. D/C IMM signed CM will continue to follow and will assist as needed with dc plans/needs. Compound Machine Operator: Uma Delgado DCPIA - Discharge Planning Initial Assessment Updated by [id number]: Uma Delgado on 06/12/20 6:58 pm * Is the patient Alert and Oriented? Yes * How many steps to enter\exit or inside your home? * PCP SHEEHAN * Pharmacy [facility] * Preadmission Environment Home with Family * ADLs Independent * Equipment Walker * Other Equipment TRILOGY, HOME/ PORTABLE 02, NEBULIZER, * List name and contact numbers for known caregivers / representatives who currently or will assist patient after discharge: Nadia Lin - community health -[phone] * Verbal permission to speak to the caregivers and representatives has been obtained from the patient. Yes * Community resources currently utilized None * Additional services required to return to the preadmission environment? No * Can the patient safely return to the preadmission environment? Yes * Has this patient been hospitalized within the prior 30 days at any hospital? No Coverage Notice Reviewer: [id number] Elysia Delgado Notice Issued Date-Time: 06/12/2020 13:55 Notice Type: IM Discharge Notice Notice Delivered To: Patient Relationship to Patient: Self Clinical Research Physician Name: Delivery Method: HAND - Hand Delivered Makenzie Days: Prior Verbal Notification: Recipient Understood Notice: Yes Recipient Signature: Yes Med Rec Note Co-signed by Attending: Coverage Notice Comment: Last DP export: 06/12/20 5:05 p Patient Name: LANE ONEAL Page [phone] at 0821 All edits/amendments must be made on the electronic document DICTATION DATE: 06/16/20820 GUEST SERVICE HOST: TAISHA 06/16/20820 RPT#: [id number] DC DATE:06/15/20 STATUS: DIS IN [facility] [address] [place] [address] END OF REPORT
--- NOTE | 2020-06-16 13:05 | NUR ---
PT'S MEDS RETREIVED FROM PHARMACY AND TAKEN OUT TO PT IN ER ENTRANCE. ALSO GIVEN A PHONE SAS DEVELOPER, PILLOW, AND OXYGEN TANK.
== END 2020-06-15 01:31 | disposition left against medical advice (07) | DRG 189 ==
LOC: D.ER 20:58 → D.M2 23:36
PROVIDERS: Emergency Medicine; ADMIT Emergency Medicine; ATTEND Emergency Medicine
DX: J96.21 Acute and chronic respiratory failure with hypoxia (principal); J44.1 Chronic obstructive pulmonary disease with (acute) exacerbation; E87.1 Hypo-osmolality and hyponatremia; J44.0 Chronic obstructive pulmonary disease with (acute) lower respiratory infection; J96.22 Acute and chronic respiratory failure with hypercapnia; J20.9 Acute bronchitis, unspecified; J30.9 Allergic rhinitis, unspecified; E83.42 Hypomagnesemia; D69.6 Thrombocytopenia, unspecified; K74.60 Unspecified cirrhosis of liver; K21.9 Gastro-esophageal reflux disease without esophagitis; F41.8 Other specified anxiety disorders; I48.91 Unspecified atrial fibrillation; I11.0 Hypertensive heart disease with heart failure; I50.9 Heart failure, unspecified; G89.29 Other chronic pain; M54.9 Dorsalgia, unspecified; Z86.718 Personal history of other venous thrombosis and embolism; Z87.891 Personal history of nicotine dependence

== ENCOUNTER 2020-06-21 16:06 | Inpatient (IN) | payer MEDICARE, MEDICAID ==
[~2020-06-21] VITALS: Ht 157.5 cm; Wt 51.3 kg
[~2020-06-21 16:06] MED LIST changes: +CARDIZEM30 MG PO; +LANOXIN125 MCG PO
--- NOTE | 2020-06-21 16:14 | NUR ---
RESPIRATORY NOTIFIED OF NEED FOR ABGs
--- NOTE | 2020-06-21 16:19 | NUR ---
COVID-19 ANTIGEN SWABS AND PCR KITS REQUESTED FROM LAB
[2020-06-21 16:34] LABS: APTT 26.3 SECONDS (22.8-39.4); INR 1.04 (0.85-1.17); PROTIME 12.5 SECONDS (11.6-15.0)
--- NOTE | 2020-06-21 16:35 | NUR ---
COVID-19 ANTIGEN AND PCR SENT TO LAB PER PROTOCOL.
[2020-06-21 16:37] LABS: BASOPHILS 0 % (0-2); EOSINOPHILS 1.5 % (0-7); HEMATOCRIT 40.9 % (36.0-48.0); HEMOGLOBIN 12.4 g/dL (12-16); IMMATURE GRANULOCYTES 0.2 % (0-5); LYMPHOCYTE ABS# 1.17 10x3/uL (1.18-3.74); LYMPHOCYTES 22.2 % (15-50); MCH 29.4 pg (26.0-34.0); MCHC 30.3 g/dL (31.0-37.0); MCV 96.9 fL (80.0-100.0); MEAN PLATELET VOLUME 8.7 fL (7.4-10.4); MONOCYTES 11.9 % (2-11); NEUTROPHIL ABS# 3.39 10x3/uL (1.56-6.13); NEUTROPHILS 64.2 % (40-80); RBC 4.22 10x6/uL (4.00-5.40); RDW 12.5 % (11.5-14.5); WBC 5.3 10x3/uL (4.8-10.8)
[2020-06-21 16:41] LABS: PLATELET COUNT 189 10x3/uL (130-400)
[2020-06-21 16:54] LABS: ALBUMIN 2.7 g/dL (3.4-5.0); ALKALINE PHOSPHATASE 95 U/L (30-120); ALT (SGPT) 35 U/L (10-68); BILIRUBIN - TOTAL 0.41 mg/dL (0.2-1.3); CALC OSMOLALITY 269 mosm/kg (275-300); CALCIUM 8.5 mg/dL (8.5-10.1); CHLORIDE - SERUM 97 mmol/L (98-107); CKMB 0.6 U/L (0.0-3.6); CREATINE KINASE 22 UL (21-215); CREATININE - SERUM 0.7 mg/dL (0.6-1.3); GLUCOSE 110 mg/dL (74-106); POTASSIUM - SERUM 3.5 mmol/L (3.5-5.1); PRO BNP 195 pg/mL (0-125); PROTEIN - SERUM 5.4 g/dL (6.4-8.2); SODIUM 136 mmol/L (136-145); UREA NITROGEN 5 mg/dL (7-18); eGFR NON AFRICAN AMERICAN > 90 mL/min (90-120)
[2020-06-21 17:08] LABS: TROPONIN-I < 0.017 ng/mL (0.000-0.060)
[2020-06-21 17:09] LABS: CARBON DIOXIDE 42.9 mmol/L (21.0-32.0)
[2020-06-21 17:17] LABS: SARS-CoV-2 ANTIGEN NEGATIVE- SARS-COV-2 (NEGATIVE)
--- NOTE | 2020-06-21 19:19 | NUR ---
PT TO ROOM 2132 VIA STRETCHER ACCOMPANIED BY HOSPITAL STAFF.
[2020-06-21 20:52] VITALS: BP 147/67
[2020-06-22 00:42] VITALS: BP 105/63
[2020-06-22 02:39] VITALS: BP 142/67; BMI 20.7
[2020-06-22 05:33] LABS: BASOPHILS 0.2 % (0-2); EOSINOPHILS 1.7 % (0-7); HEMATOCRIT 42.4 % (36.0-48.0); HEMOGLOBIN 12.4 g/dL (12-16); IMMATURE GRANULOCYTES 0.6 % (0-5); LYMPHOCYTE ABS# 1.33 10x3/uL (1.18-3.74); LYMPHOCYTES 25.1 % (15-50); MCH 28.7 pg (26.0-34.0); MCHC 29.2 g/dL (31.0-37.0); MCV 98.1 fL (80.0-100.0); MEAN PLATELET VOLUME 8.9 fL (7.4-10.4); MONOCYTES 13.6 % (2-11); NEUTROPHIL ABS# 3.12 10x3/uL (1.56-6.13); NEUTROPHILS 58.8 % (40-80); PLATELET COUNT 210 10x3/uL (130-400); RBC 4.32 10x6/uL (4.00-5.40); RDW 12.6 % (11.5-14.5); WBC 5.3 10x3/uL (4.8-10.8)
[2020-06-22 05:41] VITALS: BP 143/74
[2020-06-22 06:53] LABS: ALBUMIN 2.8 g/dL (3.4-5.0); ALKALINE PHOSPHATASE 115 U/L (30-120); ALT (SGPT) 38 U/L (10-68); BILIRUBIN - TOTAL 0.33 mg/dL (0.2-1.3); CALC OSMOLALITY 271 mosm/kg (275-300); CALCIUM 8.5 mg/dL (8.5-10.1); CHLORIDE - SERUM 97 mmol/L (98-107); CREATININE - SERUM 0.6 mg/dL (0.6-1.3); DIGOXIN 0.27 ng/mL (0.90-2.00); GLUCOSE 78 mg/dL (74-106); MAGNESIUM - SERUM 1.7 mg/dL (1.8-2.4); PHOSPHOROUS 3.2 mg/dL (2.5-4.9); POTASSIUM - SERUM 3.5 mmol/L (3.5-5.1); PROTEIN - SERUM 5.7 g/dL (6.4-8.2); SODIUM 138 mmol/L (136-145); UREA NITROGEN 5 mg/dL (7-18); eGFR NON AFRICAN AMERICAN > 90 mL/min (90-120)
[2020-06-22 06:57] LABS: CARBON DIOXIDE 41.5 mmol/L (21.0-32.0)
[2020-06-22 09:01] LABS: BILIRUBIN NEGATIVE (NEGATIVE); KETONE NEGATIVE (NEGATIVE); NITRITE NEGATIVE (NEGATIVE); UROBILINOGEN NORMAL mg/dL (< 2)
[2020-06-22 09:28] VITALS: BP 144/70
--- NOTE | 2020-06-22 15:41 | NUR ---
LYING IN BED RESTING WITH EYES CLOSED. NADN. AT BEDSIDE. NO S/S OF PAIN OR DISCOMFORT. WILL CONTINUE TO MONITOR.
[2020-06-22 16:32] VITALS: BP 106/62
--- NOTE | 2020-06-22 19:15 | NUR ---
REPORT RECEIVED, PT CARE ASSUMED. PT SITTING UP IN BED, AAOX4, WATCHING TV. REQUESTED WATER, PROVIDED. DENIES ANY OTHER NEEDS AT THIS TIME. BED LOWEST, SRX1, CL WITHIN REACH. CPOC.
[2020-06-22 20:30] VITALS: BP 133/77
[2020-06-23] VITALS (7 sets, daily range): BP systolic 101–113; BP diastolic 60–72; Ht 157.5 cm; Wt 51.3 kg
[2020-06-23 08:51] LABS: CALC OSMOLALITY 273 mosm/kg (275-300); CARBON DIOXIDE 38.8 mmol/L (21.0-32.0); CHLORIDE - SERUM 95 mmol/L (98-107); CREATININE - SERUM 0.6 mg/dL (0.6-1.3); GLUCOSE 107 mg/dL (74-106); PHOSPHOROUS 3.8 mg/dL (2.5-4.9); POTASSIUM - SERUM 4.6 mmol/L (3.5-5.1); SODIUM 136 mmol/L (136-145); UREA NITROGEN 17 mg/dL (7-18); eGFR NON AFRICAN AMERICAN > 90 mL/min (90-120)
[2020-06-23 08:59] LABS: BASOPHILS 0 % (0-2); EOSINOPHILS 0.2 % (0-7); HEMATOCRIT 42.2 % (36.0-48.0); HEMOGLOBIN 12.9 g/dL (12-16); IMMATURE GRANULOCYTES 0.2 % (0-5); LYMPHOCYTE ABS# 0.66 10x3/uL (1.18-3.74); LYMPHOCYTES 11.8 % (15-50); MCH 29.4 pg (26.0-34.0); MCHC 30.6 g/dL (31.0-37.0); MEAN PLATELET VOLUME 9.3 fL (7.4-10.4); MONOCYTES 8.8 % (2-11); NEUTROPHIL ABS# 4.42 10x3/uL (1.56-6.13); PLATELET COUNT 239 10x3/uL (130-400); RBC 4.39 10x6/uL (4.00-5.40); RDW 12.6 % (11.5-14.5); WBC 5.6 10x3/uL (4.8-10.8)
[2020-06-23 09:09] LABS: MCV 96.1 fL (80.0-100.0)
--- NOTE | 2020-06-23 19:30 | NUR ---
PT IN BED, AAO X 4, PT COMPLAINING OF IV SALINE LOCK HURTING TO LEFT WRIST, ATTEMPTED TO FLUSH, IV INFILTRATED, IV REMOVED, NEW 20G PLACED TO LEFT FOREARM AT THIS TIME. PT RESP EVEN AND UNLABORED, NO DISTRESS NOTED, CL IN REACH, SR UP X 2.
--- NOTE | 2020-06-24 03:00 | NUR ---
I have reviewed this patient and I concur with the Shift Assessment completed by the Licensed Practical Nurse today this shift.
[2020-06-24 05:38] VITALS: BP 127/71
[2020-06-24 06:45] LABS: CALCIUM 8.5 mg/dL (8.5-10.1); CARBON DIOXIDE 34.7 mmol/L (21.0-32.0); PHOSPHOROUS 4.1 mg/dL (2.5-4.9); POTASSIUM - SERUM 4.7 mmol/L (3.5-5.1)
[2020-06-24 06:46] LABS: CREATININE - SERUM 1.1 mg/dL (0.6-1.3)
[2020-06-24 06:49] LABS: BASOPHILS 0 % (0-2); EOSINOPHILS 0.9 % (0-7); HEMATOCRIT 42.1 % (36.0-48.0); HEMOGLOBIN 12.9 g/dL (12-16); IMMATURE GRANULOCYTES 0.3 % (0-5); LYMPHOCYTE ABS# 0.52 10x3/uL (1.18-3.74); LYMPHOCYTES 5.3 % (15-50); MCHC 30.6 g/dL (31.0-37.0); MCV 94.6 fL (80.0-100.0); MEAN PLATELET VOLUME 9.1 fL (7.4-10.4); MONOCYTES 4.9 % (2-11); NEUTROPHILS 88.6 % (40-80); RBC 4.45 10x6/uL (4.00-5.40)
[2020-06-24 07:00] LABS: PLATELET COUNT 183 10x3/uL (130-400); WBC 9.7 10x3/uL (4.8-10.8)
[2020-06-24 08:00] VITALS: BP 127/80
[2020-06-24 10:51] VITALS: BP 113/68
[2020-06-24 15:00] VITALS: BP 125/81
--- NOTE | 2020-06-24 18:37 | NUR ---
PAGE INTO AMINA DAHL APN TO SEE ABOUT PAIN MEDS THAT FELL OFF THE EMAR. AWAITNG CALL BACK.
[2020-06-24 20:00] VITALS: BP 119/68
--- NOTE | 2020-06-24 21:32 | NUR ---
PT AAOX4 SITTING IN BED. PT IS PLEASANT AND COOPERATIVE. IV FLUSHED, CLEAN, DRY AND INTACT. PT PAIN MEDS GIVEN FOR 9/10 PAIN GENERALIZED. PT REQUESTING PRN ANXIETY MED AT 2200. OXYGEN IN PLACE, DENIES SOB. NO FURTHER NEEDS AT THIS TIME.
--- NOTE | 2020-06-24 22:30 | NUR ---
HOME TRILOGY SET UP AT BEDSIDE 2L 02 BLED INTO SYSTEM PT AWARE AND COMPLIANT
[2020-06-25 00:19] VITALS: BP 105/70
[2020-06-25 04:00] VITALS: BP 136/70
[2020-06-25 05:55] LABS: BASOPHILS 0.2 % (0-2); HEMATOCRIT 41.4 % (36.0-48.0); HEMOGLOBIN 12.5 g/dL (12-16); IMMATURE GRANULOCYTES 0.3 % (0-5); LYMPHOCYTE ABS# 0.73 10x3/uL (1.18-3.74); LYMPHOCYTES 11.1 % (15-50); MCH 29.1 pg (26.0-34.0); MCHC 30.2 g/dL (31.0-37.0); MCV 96.3 fL (80.0-100.0); MEAN PLATELET VOLUME 9.2 fL (7.4-10.4); MONOCYTES 10.5 % (2-11); NEUTROPHIL ABS# 4.98 10x3/uL (1.56-6.13); NEUTROPHILS 75.9 % (40-80); PLATELET COUNT 178 10x3/uL (130-400); RDW 13.3 % (11.5-14.5)
[2020-06-25 06:11] LABS: CALC OSMOLALITY 273 mosm/kg (275-300); CALCIUM 8.8 mg/dL (8.5-10.1); CARBON DIOXIDE 33.6 mmol/L (21.0-32.0); CHLORIDE - SERUM 97 mmol/L (98-107); GLUCOSE 107 mg/dL (74-106); MAGNESIUM - SERUM 2.1 mg/dL (1.8-2.4); SODIUM 135 mmol/L (136-145); UREA NITROGEN 24 mg/dL (7-18)
[2020-06-25 06:12] LABS: CREATININE - SERUM 0.8 mg/dL (0.6-1.3); PHOSPHOROUS 5.4 mg/dL (2.5-4.9)
[2020-06-25 06:13] LABS: POTASSIUM - SERUM 3.8 mmol/L (3.5-5.1); eGFR NON AFRICAN AMERICAN 78 mL/min (90-120)
[2020-06-25 06:20] LABS: WBC 6.6 10x3/uL (4.8-10.8)
[2020-06-25 11:19] VITALS: BP 112/54
[2020-06-25 15:44] VITALS: BP 123/67
[2020-06-25 20:00] VITALS: BP 120/73
--- NOTE | 2020-06-25 21:58 | NUR ---
PT IS STILL TRYING TO HAVE A BOWEL MOVEMENT. METAMUCIL GIVEN ALONG WITH EVENING MEDS. PT WEARING 2L BNC, NO COMPLAINTS AT THIS TIME. PT DENIES SOB BUT STATES SHE IS HAVING ANXIETY ABOUT PROCEDURE TOMORROW. PT OFFERED PRN ANXIETY MEDS AND SHE STATES SHE WILL WAIT UNTIL CLOSER TO 2230. WILL CONTINUE TO MONITOR.
[2020-06-25 23:58] VITALS: BP 145/76
[2020-06-26 04:00] VITALS: BP 124/73
--- NOTE | 2020-06-26 05:13 | NUR ---
PT C/O NAUSEA. CANNOT HAVE ZOFRAN UNTIL 0707 THIS MORNING. PT STILL WORKING ON HAVING A BOWEL MOVEMENT. PT IS VERY ANXIOUS ABOUT PROCEDURE TODAY.
[2020-06-26 07:12] LABS: BASOPHILS 0 % (0-2); EOSINOPHILS 0.3 % (0-7); HEMATOCRIT 43.8 % (36.0-48.0); HEMOGLOBIN 13.5 g/dL (12-16); IMMATURE GRANULOCYTES 0.1 % (0-5); LYMPHOCYTE ABS# 0.38 10x3/uL (1.18-3.74); LYMPHOCYTES 5.5 % (15-50); MCH 29.5 pg (26.0-34.0); MCHC 30.8 g/dL (31.0-37.0); MCV 95.6 fL (80.0-100.0); MEAN PLATELET VOLUME 9.2 fL (7.4-10.4); MONOCYTES 7.4 % (2-11); NEUTROPHIL ABS# 6.01 10x3/uL (1.56-6.13); NEUTROPHILS 86.7 % (40-80); PLATELET COUNT 150 10x3/uL (130-400); RBC 4.58 10x6/uL (4.00-5.40); RDW 13.4 % (11.5-14.5); WBC 6.9 10x3/uL (4.8-10.8)
[2020-06-26 07:27] LABS: ANION GAP 8.2 mmol/L (8-16); CALCIUM 8.8 mg/dL (8.5-10.1); CREATININE - SERUM 0.9 mg/dL (0.6-1.3); MAGNESIUM - SERUM 2.2 mg/dL (1.8-2.4); PHOSPHOROUS 5.7 mg/dL (2.5-4.9); POTASSIUM - SERUM 4.2 mmol/L (3.5-5.1)
[2020-06-26 09:57] VITALS: BP 137/70
--- NOTE | 2020-06-26 10:12 | NUR ---
OFF FLOOR VIA BED FOR BRONCHIAL WASH
[2020-06-26 12:42] VITALS: BP 129/73
--- NOTE | 2020-06-26 13:11 | NUR ---
Nutrition Follow-up: NPO for bronch & bronchoalveolar lavage today. Noted c/o constipation. Nausea this AM. Diet: NPO No PO intake recorded No new wt; last wt: 113# (06/23) Labs noted: Glu 142, PO4 5.7 Meds noted: Metamucil, Carafate, Protonix, Zofran, Lasix, KDur, Solumedrol, electrolyte protocol -Resume diet when medically feasible; encourage PO intake and honor food preferences within diet restrictions. -Need new wt. -RD follow-up: 07/01
[2020-06-26 17:28] VITALS: BP 135/69
[2020-06-26 20:42] VITALS: BP 142/75
[2020-06-27 04:46] VITALS: BP 153/63
[2020-06-27 05:54] LABS: BASOPHILS 0 % (0-2); EOSINOPHILS 0 % (0-7); HEMATOCRIT 37.8 % (36.0-48.0); HEMOGLOBIN 11.3 g/dL (12-16); IMMATURE GRANULOCYTES 0.2 % (0-5); LYMPHOCYTE ABS# 0.43 10x3/uL (1.18-3.74); LYMPHOCYTES 8.5 % (15-50); MCH 28.3 pg (26.0-34.0); MCHC 29.9 g/dL (31.0-37.0); MCV 94.7 fL (80.0-100.0); MEAN PLATELET VOLUME 9.7 fL (7.4-10.4); MONOCYTES 5.9 % (2-11); NEUTROPHIL ABS# 4.33 10x3/uL (1.56-6.13); NEUTROPHILS 85.4 % (40-80); PLATELET COUNT 151 10x3/uL (130-400); RBC 3.99 10x6/uL (4.00-5.40); RDW 13.3 % (11.5-14.5)
[2020-06-27 06:15] LABS: CALC OSMOLALITY 275 mosm/kg (275-300); CALCIUM 8.3 mg/dL (8.5-10.1); CARBON DIOXIDE 31.2 mmol/L (21.0-32.0); CHLORIDE - SERUM 99 mmol/L (98-107); CREATININE - SERUM 0.8 mg/dL (0.6-1.3); GLUCOSE 188 mg/dL (74-106); POTASSIUM - SERUM 3.7 mmol/L (3.5-5.1); SODIUM 133 mmol/L (136-145); UREA NITROGEN 27 mg/dL (7-18); eGFR NON AFRICAN AMERICAN 78 mL/min (90-120)
[2020-06-27 06:16] LABS: PHOSPHOROUS 3.3 mg/dL (2.5-4.9)
[2020-06-27 06:20] LABS: WBC 5.1 10x3/uL (4.8-10.8)
--- NOTE | 2020-06-27 07:30 | NUR ---
PT SITTING UP IN BED. RESP EVEN AND UNLABORED. AAOX4. O2 VIA NC AT [address] PT DENIES NEEDS AT THIS TIME. CLIR. BED IN LOWEST POSITION. SIDE RAILS X2
[2020-06-27 08:39] VITALS: BP 128/71
[2020-06-27 11:24] VITALS: BP 121/69
--- NOTE | 2020-06-27 11:45 | NUR ---
PT'S ROOM SMELLS VERY STRONGLY OF CIGARETTE SMOKE. PT DENIES SMOKING IN ROOM AND STATES SHE QUIT 6 YEARS AGO. PT EDUCATED OF DANGERS OF SMOKING IN HOSPITAL. PT VERBALIZED UNDERSTANDING. NURSE MORTGAGE LOAN SPECIALIST NOTIFIED
[2020-06-27 14:10] LABS: FUNGUS STAIN Final report (())
[2020-06-27 17:09] LABS: ACID FAST SMEAR Negative (()); AFB SPECIMEN PROCESSING Concentration (())
--- NOTE | 2020-06-27 18:00 | NUR ---
I have reviewed this patient and I concur with the Shift Assessment completed by the Licensed Practical Nurse today this shift.
--- NOTE | 2020-06-27 18:56 | NUR ---
PT SITTING UP IN BED, AWAKE, ALERT NO DISTRESS NOTED WILL CONTINUE TO MONITOR
[2020-06-27 20:29] VITALS: BP 137/67
--- NOTE | 2020-06-27 23:00 | NUR ---
PT C/O LEFT PIV TENDER, UNABLE TO FLUSH 22 GAUGE PIV PLACED TO LEFT HAND AFTER 6 ATTEMPTS
[2020-06-28 00:46] VITALS: BP 119/58
[2020-06-28 05:53] VITALS: BP 137/70
[2020-06-28 08:20] VITALS: BP 128/67
--- NOTE | 2020-06-28 11:40 | NUR ---
IN BED. DENIES NEEDS AT THIS TIME. BED LOW POSITION, CALL LIGHT IN REACH. WILL CONTINUE TO MONITOR.
[2020-06-28 12:32] VITALS: BP 116/56
[2020-06-28 15:50] VITALS: BP 112/60
--- NOTE | 2020-06-28 19:02 | NUR ---
PT SITTING UP IN BED, AWAKE ALERT DENIES NEEDS, NO DISTRESS NOTED, WILL CONTINUE TO MONITOR
[2020-06-28 20:30] VITALS: BP 123/61
[2020-06-29 00:30] VITALS: BP 140/76
[2020-06-29 04:30] VITALS: BP 128/59
--- NOTE | 2020-06-29 07:00 | NUR ---
RECEIVED REPORT. ASSUMED CARE OF PATIENT. WHITE BOARD UPDATED, BEDSIDE SHIFT REPORT COMPLETED. PATIENT OOB AMBULATING IN ROOM, COMPLETING MORNING ADLS. NO DISTRESS. COMPLAINS OF CHRONIC BACK PAIN, 12/12. TOO SOON FOR PAIN MEDICATION ADMINISTRATION. NO DISTRESS. DENIES ANY OTHER NEEDS AT THIS TIME.
[2020-06-29 07:25] LABS: BASOPHILS 0 % (0-2); EOSINOPHILS 0.1 % (0-7); HEMOGLOBIN 12.2 g/dL (12-16); IMMATURE GRANULOCYTES 0.1 % (0-5); LYMPHOCYTE ABS# 0.42 10x3/uL (1.18-3.74); LYMPHOCYTES 5.4 % (15-50); MCHC 31.3 g/dL (31.0-37.0); MCV 92.9 fL (80.0-100.0); MEAN PLATELET VOLUME 9.7 fL (7.4-10.4); MONOCYTES 9.3 % (2-11); NEUTROPHIL ABS# 6.67 10x3/uL (1.56-6.13); NEUTROPHILS 85.1 % (40-80); PLATELET COUNT 153 10x3/uL (130-400); RDW 13.2 % (11.5-14.5); WBC 7.8 10x3/uL (4.8-10.8)
[2020-06-29 07:50] LABS: BILIRUBIN - TOTAL 1.41 mg/dL (0.2-1.3); CARBON DIOXIDE 29.1 mmol/L (21.0-32.0); CREATININE - SERUM 0.9 mg/dL (0.6-1.3); POTASSIUM - SERUM 3.1 mmol/L (3.5-5.1); PROTEIN - SERUM 5.2 g/dL (6.4-8.2)
[2020-06-29 08:26] VITALS: BP 126/74
--- NOTE | 2020-06-29 09:03 | NUR ---
medicated for pain and anxiety at this time. no distress. alert/awake.
--- NOTE | 2020-06-29 13:00 | NUR ---
MEDICATED FOR PAIN AT THIS TIME. NO DISTRESS. CALL LIGHT WITHIN REACH.
[2020-06-29 13:21] VITALS: BP 107/60
--- NOTE | 2020-06-29 17:39 | NUR ---
medicated for pain at this time. no distress.
--- NOTE | 2020-06-29 17:44 | MORECARE ---
CASE MANAGEMENT DISCHARGE SUMMARY PATIENT: LANE ONEAL UNIT: [id number] ADM DATE: 06/24/20 AGE: 60 : 62 SEX: F ROOM/BED: D.2132 AUTHOR: MERA,DOC PHYSICIAN: REFERRING PHYSICIAN: LORI REBOLLEDO MD DATE OF SERVICE: 06/29/20 Case Management Discharge Planning Summary CT Patient Name: LANE ONEAL Attending MD : LORI WEBSTER Medical Record: [id number] Encounter : [id number] Facility : [address] [place] [address] Admission Date : 112:28 Center Discharge Date : [address] [place] [address] Date of : DC Plan ID : [id number] Age/Sex/Martia : 59/ F/D Printed on : 06/29/20 17:43 CT DCP Review Details Anticipated D/C: Expected LOS : Case Status : INITIATED - Initial Reviewe: [id number] - David Zaragoza Initial Review: 06/21/2020 Planned Disposi: 01 - Home or Self Care (Routine Discharge) Final Discharge: - Final Reviewer : : Final Review : Comments CT Entered Date Type Reviewer 06/29/20 17:38 CT Discharge Planning David Zaragoza Comment CM met with patient to complete DC plan and to evaluate needs. Patient stated that she readmitted to the hospital because "my breathing got worse and I got out of the hospital too early last time". Patient stated that she was not able to follow up with her physicians after last visit but she was able to get her medications. Patient stated that she came to the hospital via ambulance and was not able to get her portable oxygen tank from home. Patient states that she will have to work on finding a ride home and will have to coordinate with the person to retrieve her oxygen tank. CM informed the patient that a call could be placed to [facility] to deliver a portable oxygen tank for her to take home. The patient was stated that she would like to try to get the tank from home first. At discharge, the patient plans to return home and feels this is a safe discharge. CM discussed availability of home health, rehab services, and medical equipment. Patient declined HHS, SNF, IPR, and DME. Patient stated that she has oxygen through [facility]. Patient voiced no other needs at this time and is satisfied with DC plan. DC IMM delivered, explained, signed by the patient, and placed in chart. Signed form also left with the patient. CM will continue to follow and will assist as needed with dc plans/needs. DCP Focus Questions & Answers DCP Screen High Risk Factors: Readmission within past 30 days DCP Evaluation Patient's ability to cope with chronic illness d. No chronic illness Would patient like to participate in any Care Not applicable Coordination programs (if applicable): Mental health screen: No mental health history DCP Re-evaluation Would patient like to participate in any Care Not applicable Coordination programs (if applicable): [facility] [address] ONE[address] MR#: [id number] /Age/Sex/Wzpuwm48-Did-18 /59/F /D Attending Physician Name: LORI REBOLLEDO [id number] Patient Account:[id number] [facility] Page -1 of 1 All edits/amendments must be made on the electronic document DICTATION DATE: 06/29/201742 AUTO TRANSMISSION MECHANIC: TAISHA 06/29/201742 RPT#: [id number] DC DATE: STATUS: ADM IN [facility] [address] [place] [address] END OF REPORT
--- NOTE | 2020-06-29 18:10 | MORECARE ---
CASE MANAGEMENT DISCHARGE SUMMARY PATIENT: LANE ONEAL UNIT: [id number] ADM DATE: 06/24/20 AGE: 60 : 62 SEX: F ROOM/BED: D.2132 AUTHOR: MERA,DOC PHYSICIAN: REFERRING PHYSICIAN: LORI REBOLLEDO MD DATE OF SERVICE: 06/29/20 Case Management Discharge Planning Summary CT Patient Name: LANE ONEAL Attending MD : LORI WEBSTER Medical Record: [id number] Encounter : [id number] Facility : [address] [place] [address] Admission Date : 112:28 Center Discharge Date : [address] [place] [address] Date of : DC Plan ID : [id number] Age/Sex/Martia : 59/ F/D Printed on : 06/29/20 18:08 CT DCP Review Details Anticipated D/C: Expected LOS : Case Status : INITIATED - Initial Reviewe: [id number] - David Zaragoza Initial Review: 06/21/2020 Planned Disposi: 01 - Home or Self Care (Routine Discharge) Final Discharge: - Final Reviewer : : Final Review : Comments CT Entered Date Type Reviewer 06/29/20 17:38 CT Discharge Planning David Zaragoza Comment CM met with patient to complete DC plan and to evaluate needs. Patient stated that she readmitted to the hospital because "my breathing got worse and I got out of the hospital too early last time". Patient stated that she was not able to follow up with her physicians after last visit but she was able to get her medications. Patient stated that she came to the hospital via ambulance and was not able to get her portable oxygen tank from home. Patient states that she will have to work on finding a ride home and will have to coordinate with the person to retrieve her oxygen tank. CM informed the patient that a call could be placed to [facility] to deliver a portable oxygen tank for her to take home. The patient was stated that she would like to try to get the tank from home first. At discharge, the patient plans to return home and feels this is a safe discharge. CM discussed availability of home health, rehab services, and medical equipment. Patient declined HHS, SNF, IPR, and DME. Patient stated that she has oxygen through [facility] [place]. Patient voiced no other needs at this time and is satisfied with DC plan. DC IMM delivered, explained, signed by the patient, and placed in chart. Signed form also left with the patient. CM will continue to follow and will assist as needed with dc plans/needs. Appended by David Zaragoza on 06/29/2020 17:51 CDT: Patient stated that her primary care physician is Dr. Karimi DCP Focus Questions & Answers DCP Screen High Risk Factors: Readmission within past 30 days DCP Evaluation Patient and/or caregiver agree upon recommended Yes discharge plan? Patient's current cognitive status: *Oriented to person, place, situation, time and present Patient gives permission to discuss discharge XIOMARA ERIC, mother, plans with: (name, relationship and number) Patient's ability to cope with chronic illness d. No chronic illness Does the patient have the ability to pay for or Yes attain post discharge needs / services? Functional screen assessment: No issues identified Functional screen assessment: Basic needs can adequately be met by self Physical Status: Independent with ADL's Equipment needed for post hospitalization: None Is there a likelihood that the patient will No require additional services to return to the preadmission environment? Living Arrangements: Home with others Patient with capacity for self-care or can be Yes cared for in same environment as prior to hospitalization? Baseline cognitive status: *Oriented to person, place, situation, time and present Physical environment modification needed / No anticipated for discharge: Medication Management: Patient states can read and understand medication labels Medication Management: Patient states can afford medications Pharmacy name(s): [facility] Does Patient have transportation to get home and Yes to follow-up medical appointments when discharged from the hospital? Would patient like to participate in any Care Not applicable Coordination programs (if applicable): Does the patient have electricity at home? Yes Does the patient have running water in their Yes house? Other Equipment comments: TRILOGY HOME, PORTABLE Oxygen, NEBULIZER Equipment agency name and contact information: [facility] [place] Mental health screen: No mental health history DCP Re-evaluation Patient and/or caregiver agree upon recommended Yes discharge plan? Patient's current cognitive status: *Oriented to person, place, situation, time and present Reassessment due to: New discovery of admission to an acute inpatient facility within 30 days Functional screen assessment: No issues identified Functional screen assessment: Basic needs can adequately be met by self Patient gives permission to discuss discharge XIOMARA REYES ([facility]) [phone] plans with: (name, relationship and number) Equipment needed for post hospitalization: None Patient with capacity for self-care or can be Yes cared for in same environment as prior to hospitalization? Would patient like to participate in any Care Not applicable Coordination programs (if applicable): [facility] [address] ONE[address] MR#: [id number] /Age/Sex/Swhklb06-Uud-90 /59/F /D Attending Physician Name: LORI REBOLLEDO [id number] Patient Account:[id number] [facility] Page -1 of 1 All edits/amendments must be made on the electronic document DICTATION DATE: 06/29/201807 CLINICAL INFORMATICS MANAGER: TAISHA 06/29/201807 RPT#: [id number] DC DATE: STATUS: ADM IN [facility] [address] [place] [address] END OF REPORT
[2020-06-29 20:00] VITALS: BP 140/77
--- NOTE | 2020-06-29 22:35 | NUR ---
INITAIL ROUNDS COMPLETED AT 1914 HRS. PT ASKING FOR PAIN MEDS. INFORMED NEXT DOSE AT 0 HRS. ASSESSMENT COMPLETED AT [address] PER CMHR 108. ALERT AND ORIENTED TO PERSON, PLACE AND TIME. CASTAÑEDA. LUNGS DIMINISHED IN BASES BILAT. IV TO R HAND SL. MORPHINE 2MG, ZOFRAN 4MG GIVEN AT 0 FOR C/O CHRONIC BACK PAIN. PM MEDS GIVEN. PT CURRENTLY WATCHING TV. SR UP X1, CALL LIGHT WITHIN REACH.
--- NOTE | 2020-06-30 00:04 | NUR ---
PT AWAKE; NO DISTRESS NOTED. CALL LIGHT WITIN MARIO.
--- NOTE | 2020-06-30 02:59 | NUR ---
PT RESTING WITH EYES CLOSED. RESP EVEN AND REGULAR. CALL LIGHT WITHIN REACH.
[2020-06-30 04:00] VITALS: BP 121/64
--- NOTE | 2020-06-30 04:19 | NUR ---
PTAWAKE; NO DOSTRESS NOTED. REQUESTS PAIN MEDS SOON THEY ARE DO. CALL LIGHT WITHIN REACH.
--- NOTE | 2020-06-30 06:29 | NUR ---
VSS THROUGHOUT SHIFT. SR/ST PER CM. PT STATED IV MORPHNE BARELY TOUCHES HER CHRONIC BACK PAIN. NEEDS MET; WILL CONTINUE TO MONITOR.
--- NOTE | 2020-06-30 07:09 | NUR ---
RECEIVED REPORT. ASSUMED CARE OF PATIENT. CALL LIGHT WITHIN REACH. PATIENT SITTING UP IN BED WITH CHRISTINA PRATT. WHITE BOARD UPDATED. BEDSIDE SHIFT REPORT COMPLETED. PATIENT ASKING ABOUT HER OXYGEN TANK THAT WAS LEFT IN ER ON THE DAY SHE WAS ADMITTED. PATIENT WILL NEED O2 IF DISCHARGED TO HOME TODAY. DENIES NEEDS. NO DISTRESS.
[2020-06-30 07:11] LABS: BASOPHILS 0 % (0-2); HEMATOCRIT 41.6 % (36.0-48.0); HEMOGLOBIN 12.9 g/dL (12-16); IMMATURE GRANULOCYTES 0.2 % (0-5); LYMPHOCYTE ABS# 0.92 10x3/uL (1.18-3.74); LYMPHOCYTES 15.5 % (15-50); MCH 28.8 pg (26.0-34.0); MCV 92.9 fL (80.0-100.0); MEAN PLATELET VOLUME 9.9 fL (7.4-10.4); MONOCYTES 14.1 % (2-11); NEUTROPHIL ABS# 4.12 10x3/uL (1.56-6.13); NEUTROPHILS 69.2 % (40-80); PLATELET COUNT 171 10x3/uL (130-400); RBC 4.48 10x6/uL (4.00-5.40); RDW 13.3 % (11.5-14.5)
[2020-06-30 07:23] LABS: ALBUMIN 3.4 g/dL (3.4-5.0); ALKALINE PHOSPHATASE 248 U/L (30-120); ALT (SGPT) 290 U/L (10-68); BILIRUBIN - TOTAL 0.42 mg/dL (0.2-1.3); CALC OSMOLALITY 270 mosm/kg (275-300); CALCIUM 8.6 mg/dL (8.5-10.1); CARBON DIOXIDE 26.5 mmol/L (21.0-32.0); CHLORIDE - SERUM 99 mmol/L (98-107); CREATININE - SERUM 0.8 mg/dL (0.6-1.3); GLUCOSE 92 mg/dL (74-106); MAGNESIUM - SERUM 1.9 mg/dL (1.8-2.4); POTASSIUM - SERUM 3.5 mmol/L (3.5-5.1); PROTEIN - SERUM 5.9 g/dL (6.4-8.2); SODIUM 134 mmol/L (136-145); UREA NITROGEN 22 mg/dL (7-18); eGFR NON AFRICAN AMERICAN 78 mL/min (90-120)
[2020-06-30 08:14] VITALS: BP 115/67
--- NOTE | 2020-06-30 09:35 | NUR ---
MEDICATED FOR PAIN AT THIS TIME. NO DISTRESS.
[2020-06-30] MEDS ORDERED: FEXOFENADINE HC60 MG PO (11:58)
[2020-06-30] MEDS ORDERED: LEVOFLOXACIN500 MG PO (11:58)
[2020-06-30] MEDS ORDERED: DIFLUCAN100 MG PO (11:58)
[2020-06-30] MEDS ORDERED: TESSALON PERLE100 MG PO (12:00)
[2020-06-30] MEDS ORDERED: METAMUCIL PACKE1 PKT PO (12:00)
[2020-06-30] MEDS ORDERED: PREDNISONE20 MG PO (12:00)
[2020-06-30] MEDS ORDERED: CARAFATE1 G PO (12:00)
[2020-06-30] MEDS ORDERED: PERFOROMIS20 MCG/21 UPD (12:01)
--- NOTE | 2020-06-30 13:43 | NUR ---
MEDICATED FOR PAIN AND ANXIETY AT THIS TIME. NO DISTRESS.
--- NOTE | 2020-06-30 15:28 | NUR ---
22 GUAGE IV REMOVED FROM RIGHT WRIST. CATHETER TIP INTACT. NO BLEEDING FROM SITE. TOELRATED IV REMOVAL WELL. 2X2 GAUZE APPLIED AND SECURED WITH BANDAID. DISCHARGE INSTRUCTIONS PROVIDED TO PATIENT. PATIENT VERBALZIED UNDERSTANDING OF ALL INSTRUCTIONS PROVIDED. PROVIDED PATIENT WITH PERSONAL BAGS AND ASSISTED TO PACK UP PERSONAL BELONGINGS. PATIENT STATES SHE WILL BE TAKING A CAB HOME. CAB CALLED PER PATIENT. AWAITING CAB TO SENIOR PROGRAM PLANNER PATIENT AT THIS TIME.
--- NOTE | 2020-06-30 16:39 | NUR ---
PATIENT LEFT UNIT VIA WHEELCHAIR WITH ALL PERSONAL BELONGINGS. NO DISTRESS UPON LEAVING UNIT. PATIENT DISCHARGED TO HOME VIA CAB.
== END 2020-06-30 16:40 | disposition home or self-care (01) | DRG 189 ==
LOC: D.ER 16:06 → D.M2 18:30 → OBSVTIME 18:30 → D.M2 19:22
PROVIDERS: Family Medicine; Internal Medicine Pulmonary Disease; ADMIT Emergency Medicine; ATTEND Emergency Medicine
PROC: 5A09457 Assistance with Respiratory Ventilation, 24-96 Consecutive Hours, Continuous Positive Airway Pressure (ICD-10-PCS; 2020-06-21)
PROC: 0B9M8ZX Drainage of Bilateral Lungs, Via Natural or Artificial Opening Endoscopic, Diagnostic (ICD-10-PCS; principal; 2020-06-26 10:00)
DX: J96.22 Acute and chronic respiratory failure with hypercapnia (principal); J44.1 Chronic obstructive pulmonary disease with (acute) exacerbation; I50.30 Unspecified diastolic (congestive) heart failure; J44.0 Chronic obstructive pulmonary disease with (acute) lower respiratory infection; J45.909 Unspecified asthma, uncomplicated; K21.9 Gastro-esophageal reflux disease without esophagitis; M19.90 Unspecified osteoarthritis, unspecified site; I11.0 Hypertensive heart disease with heart failure; G89.29 Other chronic pain; G47.33 Obstructive sleep apnea (adult) (pediatric); F43.10 Post-traumatic stress disorder, unspecified; E83.39 Other disorders of phosphorus metabolism; F41.8 Other specified anxiety disorders; I48.91 Unspecified atrial fibrillation; K74.60 Unspecified cirrhosis of liver; J96.21 Acute and chronic respiratory failure with hypoxia; J20.9 Acute bronchitis, unspecified; Z86.711 Personal history of pulmonary embolism

== ENCOUNTER 2020-07-04 19:59 | Inpatient (IN) | payer MEDICARE, MEDICAID ==
[~2020-07-04] VITALS: Ht 157.5 cm; Wt 53.3 kg
[~2020-07-04 19:59] MED LIST changes: +CARAFATE1 G PO; +FEXOFENADINE HC60 MG PO; +METAMUCIL PACKE1 PKT PO; +PERFOROMIS20 MCG/21 UPD
[2020-07-04 20:33] LABS: BASOPHILS 0.1 % (0-2); EOSINOPHILS 3.6 % (0-7); HEMATOCRIT 43.7 % (36.0-48.0); HEMOGLOBIN 12.8 g/dL (12-16); IMMATURE GRANULOCYTES 0.3 % (0-5); LYMPHOCYTE ABS# 1.89 10x3/uL (1.18-3.74); LYMPHOCYTES 20.5 % (15-50); MCH 29.8 pg (26.0-34.0); MCHC 29.3 g/dL (31.0-37.0); MCV 101.6 fL (80.0-100.0); MEAN PLATELET VOLUME 9.7 fL (7.4-10.4); MONOCYTES 11.8 % (2-11); NEUTROPHIL ABS# 5.87 10x3/uL (1.56-6.13); NEUTROPHILS 63.7 % (40-80); RDW 13.6 % (11.5-14.5); WBC 9.2 10x3/uL (4.8-10.8)
[2020-07-04 20:42] LABS: APTT 25.3 SECONDS (22.8-39.4); INR 0.88 (0.85-1.17); PROTIME 11.1 SECONDS (11.6-15.0)
[2020-07-04 20:44] LABS: PLATELET COUNT 297 10x3/uL (130-400)
[2020-07-04 20:50] LABS: BILIRUBIN NEGATIVE (NEGATIVE); KETONE NEGATIVE (NEGATIVE); NITRITE NEGATIVE (NEGATIVE); UROBILINOGEN NORMAL mg/dL (< 2)
[2020-07-04 20:52] LABS: CALCIUM 8.7 mg/dL (8.5-10.1); CHLORIDE - SERUM 93 mmol/L (98-107); CREATININE - SERUM 0.5 mg/dL (0.6-1.3); SODIUM 139 mmol/L (136-145); UREA NITROGEN 5 mg/dL (7-18); eGFR NON AFRICAN AMERICAN > 90 mL/min (90-120)
[2020-07-04 20:53] LABS: UDS - AMPHET NEGATIVE QUAL (NEGATIVE); UDS - BARB NEGATIVE QUAL (NEGATIVE); UDS - BENZO NEGATIVE QUAL (NEGATIVE); UDS - COCAINE NEGATIVE QUAL (NEGATIVE); UDS - OPIATE POSITIVE QUAL (NEGATIVE); UDS - PCP NEGATIVE QUAL (NEGATIVE); UDS - THC NEGATIVE QUAL (NEGATIVE)
[2020-07-04 20:53] LABS: CALC OSMOLALITY 279 mosm/kg (275-300); GLUCOSE 180 mg/dL (74-106)
[2020-07-04 20:54] LABS: CARBON DIOXIDE 47.7 mmol/L (21.0-32.0)
[2020-07-04 21:06] LABS: ALBUMIN 3.1 g/dL (3.4-5.0); ALKALINE PHOSPHATASE 162 U/L (30-120); ALT (SGPT) 81 U/L (10-68); CREATINE KINASE 41 UL (21-215); MAGNESIUM - SERUM 1.7 mg/dL (1.8-2.4); PRO BNP 143 pg/mL (0-125); PROTEIN - SERUM 6.3 g/dL (6.4-8.2)
[2020-07-04 21:08] LABS: TROPONIN-I < 0.017 ng/mL (0.000-0.060)
--- NOTE | 2020-07-04 22:21 | NUR ---
DIPRIVAN INCREASED TO 28MCG/KG/MIN 7.6ML/HR
--- NOTE | 2020-07-04 23:42 | NUR ---
RECEIVED PT TO ROOM 2301 VIA STRECHER ACCOMPANIED BY RT AND ER NURSE. PT TRANSFERRED TO BED AND ICU MONITORS ESTABLISHED WITH ALARMS ON. HR SR ON CM, ASSESSMENT PER FLOWSHEET, 8.0 ETT 23 @ LIPLINE, CLAMPED OGT, BILAT SOFT WRIST RESTRAINTS INTACT, PT AROUSES TO PAINFUL STIMULI, ALL OTHER VSS. WILL MONITOR.
[2020-07-04 23:45] VITALS: BP 101/68; BMI 20.4
[2020-07-05] VITALS (24 sets, daily range): BP systolic 92–127; BP diastolic 59–79; Ht 157.5 cm; Wt 53.3 kg
[2020-07-05 05:00] LABS: BASOPHILS 0 % (0-2); HEMATOCRIT 36.8 % (36.0-48.0); HEMOGLOBIN 10.7 g/dL (12-16); IMMATURE GRANULOCYTES 0.2 % (0-5); LYMPHOCYTE ABS# 1.39 10x3/uL (1.18-3.74); LYMPHOCYTES 25.1 % (15-50); MCH 28.8 pg (26.0-34.0); MCHC 29.1 g/dL (31.0-37.0); MEAN PLATELET VOLUME 9.4 fL (7.4-10.4); MONOCYTES 11.2 % (2-11); NEUTROPHILS 61.5 % (40-80); RBC 3.71 10x6/uL (4.00-5.40); RDW 13.4 % (11.5-14.5)
[2020-07-05 05:03] LABS: MCV 99.2 fL (80.0-100.0); PLATELET COUNT 232 10x3/uL (130-400); WBC 5.5 10x3/uL (4.8-10.8)
[2020-07-05 05:18] LABS: ALBUMIN 2.5 g/dL (3.4-5.0); ALKALINE PHOSPHATASE 128 U/L (30-120); BILIRUBIN - TOTAL 0.26 mg/dL (0.2-1.3); CALCIUM 8.2 mg/dL (8.5-10.1); CARBON DIOXIDE 39.8 mmol/L (21.0-32.0); CHLORIDE - SERUM 96 mmol/L (98-107); CREATININE - SERUM 0.4 mg/dL (0.6-1.3); DIGOXIN 0.78 ng/mL (0.90-2.00); MAGNESIUM - SERUM 1.7 mg/dL (1.8-2.4); PHOSPHOROUS 2.2 mg/dL (2.5-4.9); SODIUM 138 mmol/L (136-145); UREA NITROGEN 5 mg/dL (7-18); eGFR NON AFRICAN AMERICAN > 90 mL/min (90-120)
[2020-07-05 05:21] LABS: ALT (SGPT) 58 U/L (10-68); CALC OSMOLALITY 271 mosm/kg (275-300); GLUCOSE 85 mg/dL (74-106); POTASSIUM - SERUM 3.7 mmol/L (3.5-5.1); PROTEIN - SERUM 4.7 g/dL (6.4-8.2)
--- NOTE | 2020-07-05 06:16 | NUR ---
AM LABS REVIEWED, FIRST DOSES OF MAG AND PHOS TREATED PER ELECTROLYTE PROTOCOL.
--- NOTE | 2020-07-05 08:27 | NUR ---
PT ALERT AND CALM ON VENT AT THIS TIME. SHE IS FOLLOWING COMMANDS AND USING THE CALL LIGHT. VSS. NO ACUTE DISTRESS NOTED. WILL CONTINUE PLAN OF CARE.
--- NOTE | 2020-07-05 09:33 | NUR ---
DR BEGUM ROUNDED ON PT, ORDERS RECIEVED.
--- NOTE | 2020-07-05 12:26 | NUR ---
PT AWAKE AND SITTING UP IN BED WITH VENT AT THIS TIME. WAS ABLE TO ASK HER TO LIE DOWN AND SHE DID. AT THIS TIME SEDATION WAS ADJUSTED FOR A JESS SCORE OF 3. REPOSITIONING PROVIDED WELL ORAL CARE IS PROVIDED Q2H. PT NOW LYING IN BED WITH EYES CLOSED. VSS. SHE OPENS EYES EASILY WHEN SPOKEN TO, BUT IS CALM. WILL CONTINUE TO OBSERVE.
--- NOTE | 2020-07-05 12:49 | NUR ---
PT SITTING UP IN BED AGAIN (STILL ON VENT) SEDATION INCREASED AGAIN TO REACH A JESS OF 3. SHE IS CURRENTLY RESTING WITH EYES CLOSED. VSS. WILL CONTINUE TO CLOSELY OBSERVE.
--- NOTE | 2020-07-05 13:22 | NUR ---
LYING IN BED ON VENT RESTING AT THIS TIME. VSS. NO ACUTE DISTRESS NOTED. SHE IS CURRENTLY AT A JESS OF 3. WILL CONTINUE TO CLOSELY OBSERVE.
--- NOTE | 2020-07-05 13:30 | NUR ---
PT WROTE TO ME THAT SHE WANTS ME TO CONTACT HER MOTHER, SHE GAVE ME HER MOM'S NUMBER, I WILL CALL HER MOM TO PROVIDE UPDATES PER PT REQUEST.
--- NOTE | 2020-07-05 16:09 | NUR ---
SPOKE WITH PTS MOM AT THIS TIME. UPDATES PROVIDED. VSS. NO ACUTE DISTRESS NOTED. WILL CONTINUE PLAN OF CARE.
--- NOTE | 2020-07-05 20:00 | NUR ---
REC'D ON VENT FROM OFF-GOING RN WITH REPORT AND ASSUMED CARE. INTIAL ASSESSMENT COMPLETED AND RECORDED PER FLOW SHEET. VS WNL. LUNGS WITH EXP WHEEZES. L FOREARM PIV PATENT WITH DIPRIVAN AT 70 MCG(22.7 ML/HR) AND FENTANYL AT 100 MCG/HR (2 ML/HR). VENT TO ETT WITH OGT SECURED TO ETT, HOOKED TO LIWS. CLARKE IN SITU WITH CLEAR YELLOW URINE DRAINING TO GRAVITY BAG. GENEVIEVE SCDs IN PLACE. PPP X 4. WILL CONT WITH CURRENT PLAN OF CARE
--- NOTE | 2020-07-05 23:00 | NUR ---
LYING QUIETLY, EYES CLOSED, RESP PER VENT. NO SIGNS OF DISTRESS. MONITORING FOR FEVER AND O2 SAT
[2020-07-06] VITALS (23 sets, daily range): BP systolic 103–162; BP diastolic 49–75
--- NOTE | 2020-07-06 02:08 | NUR ---
CONT TO LIE QUIETLY W/O DISTRESS. RESTRAINTS CHECKED, RELEASED AND PT REPOSITION AT LEAST EVERY 2 HOURS. VS REMAIN STABLE WITH O2 SATS UPPER 90S. WILL CONT TO MONITOR.
[2020-07-06 04:56] LABS: BASOPHILS 0 % (0-2); EOSINOPHILS 0 % (0-7); HEMATOCRIT 35.7 % (36.0-48.0); HEMOGLOBIN 10.6 g/dL (12-16); IMMATURE GRANULOCYTES 0.2 % (0-5); LYMPHOCYTE ABS# 0.24 10x3/uL (1.18-3.74); LYMPHOCYTES 4.6 % (15-50); MCH 28.5 pg (26.0-34.0); MCHC 29.7 g/dL (31.0-37.0); MEAN PLATELET VOLUME 9.2 fL (7.4-10.4); MONOCYTES 6.1 % (2-11); NEUTROPHIL ABS# 4.68 10x3/uL (1.56-6.13); NEUTROPHILS 89.1 % (40-80); PLATELET COUNT 220 10x3/uL (130-400); RBC 3.72 10x6/uL (4.00-5.40); RDW 13.8 % (11.5-14.5); WBC 5.3 10x3/uL (4.8-10.8)
[2020-07-06 05:10] LABS: ALBUMIN 2.5 g/dL (3.4-5.0); ALKALINE PHOSPHATASE 120 U/L (30-120); ALT (SGPT) 50 U/L (10-68); BILIRUBIN - TOTAL 0.27 mg/dL (0.2-1.3); CALCIUM 8.3 mg/dL (8.5-10.1); CHLORIDE - SERUM 94 mmol/L (98-107); CREATININE - SERUM 0.4 mg/dL (0.6-1.3); POTASSIUM - SERUM 3.7 mmol/L (3.5-5.1); PROTEIN - SERUM 5.4 g/dL (6.4-8.2); SODIUM 135 mmol/L (136-145); eGFR NON AFRICAN AMERICAN > 90 mL/min (90-120)
[2020-07-06 05:15] LABS: CALC OSMOLALITY 273 mosm/kg (275-300); CARBON DIOXIDE 40.8 mmol/L (21.0-32.0); GLUCOSE 164 mg/dL (74-106); MAGNESIUM - SERUM 2.2 mg/dL (1.8-2.4); UREA NITROGEN 13 mg/dL (7-18)
--- NOTE | 2020-07-06 07:10 | NUR ---
GIVEN AM CHG BATH, ASSISTED WITH TURNING. O2 SATS REMAIN UPPER 90'S TO 100%. cONT TO MONITOR. DENIES NEEDS AT PRESENT
--- NOTE | 2020-07-06 08:40 | NUR ---
LYING IN BED AT THIS TIME, CALM WITH EYES CLOSED. AWAKENS EASILY WHEN SPOKEN TO. FOLLOWS COMMANDS. NO ACUTE DISTRESS NOTED. SHE IS WRITING NOTES ASKING IF SHE WILL GET TO GO HOME SOON, AND WANTS TO KNOW IF SHE WILL BE TAKEN OFF THE VENTILATOR TODAY; I TOLD HER THAT DR BEGUM WOULD BE HERE SHORTLY AND WE WILL THEN KNOW WHAT HER PLAN OF CARE FOR THE DAY IS, SHE NODDED HER HEAD. WILL CONTINUE TO CLOSELY OBSERVE.
--- NOTE | 2020-07-06 11:30 | NUR ---
PT EXTUBATED AT THIS TIME. PLACED ON 2L NC. NO ACUTE DISTRESS NOTED. RESTRAINTS DCD. SHE IS ALERT AND ORIENTED. ABLE TO STATE NEEDS. HER PERSONAL ITEMS WERE PROVIDED TO HER SUCH CELL PHONE AND PURSE. SHE DENIES CURRENT NEEDS.
--- NOTE | 2020-07-06 12:03 | NUR ---
PT REQUESTS A PHONE IN HER ROOM SINCE SHE DOES NOT HAVE HER GLASSES AND CANNOT SEE HER CELL PHONE. PHONE WAS PROVIDED TO HER AT THIS TIME. VSS. NO ACUTE DISTRESS NOTED.
--- NOTE | 2020-07-06 13:22 | NUR ---
PT STATES SHE IS FEELING ANXIOUS, SHE STATES SHE HAS ANXIETY AND TAKES KLONOPIN 1MG BID PRN AT HOME. CALLED DR PATTERSON TO SEE IF THIS COULD GET RESTARTED. RECIEVED ORDER TO RESTART HER KLONOPIN.
--- NOTE | 2020-07-06 13:54 | NUR ---
TOLERATES THIN LIQUIDS WELL. NO S/S ASPIRATION, NO COUGHING.
--- NOTE | 2020-07-06 14:04 | NUR ---
PT PERFORMING IS EXERCISES INDEPENDENTLY; PULLS UP TO 1000.
--- NOTE | 2020-07-06 22:00 | NUR ---
PT STATES ON FIRST ROUNDS SHE FEELS SHE IS BREATHING BETTER THAN HER DAILY BEST AT HOME. ON 5LNC ON 1900 ROUNDS. WEANED TO 4 AND AT 2100 WITH MEDS WEANED TO 3. PT STATES AT HOME ON 3-4L PER NC. AWAKE ALERT ORIENTED WATCHING TV. WILL CONT TO MONIOR. C/B IN REACH AND DISCUSSED USING WHEN NEEDS TO GET UP FOR SAFETY.
[2020-07-07] VITALS (10 sets, daily range): BP systolic 98–133; BP diastolic 48–76
--- NOTE | 2020-07-07 01:04 | NUR ---
0030-PT WANTING TO GO ON NIGHT TIME BIPAP. RT CALLED AND PLACED ON AT REQUEST. PT WEARS DEVICE AT HOME. PLACED ON HOSPITAL BIPAP
[2020-07-07 04:57] LABS: BASOPHILS 0 % (0-2); EOSINOPHILS 0 % (0-7); HEMATOCRIT 33.7 % (36.0-48.0); IMMATURE GRANULOCYTES 0.2 % (0-5); LYMPHOCYTE ABS# 0.54 10x3/uL (1.18-3.74); LYMPHOCYTES 10.1 % (15-50); MCH 28.3 pg (26.0-34.0); MCHC 29.7 g/dL (31.0-37.0); MCV 95.5 fL (80.0-100.0); MEAN PLATELET VOLUME 9.4 fL (7.4-10.4); MONOCYTES 10.1 % (2-11); NEUTROPHIL ABS# 4.28 10x3/uL (1.56-6.13); NEUTROPHILS 79.6 % (40-80); PLATELET COUNT 229 10x3/uL (130-400); RBC 3.53 10x6/uL (4.00-5.40); RDW 14.1 % (11.5-14.5); WBC 5.4 10x3/uL (4.8-10.8)
[2020-07-07 05:18] LABS: % SATURATION 15 % (15-55); IRON 33 ug/dl (35-150); TOTAL IRON BIND CAPACITY 212 ug/dl (260-445); UNSAT IRON BIND CAPACITY 179 ug/dl (150-375)
[2020-07-07 05:27] LABS: ALBUMIN 2.3 g/dL (3.4-5.0); ALKALINE PHOSPHATASE 103 U/L (30-120); BILIRUBIN - TOTAL 0.28 mg/dL (0.2-1.3); CALCIUM 8.3 mg/dL (8.5-10.1); CARBON DIOXIDE 39.7 mmol/L (21.0-32.0); CHLORIDE - SERUM 100 mmol/L (98-107); CREATININE - SERUM 0.3 mg/dL (0.6-1.3); MAGNESIUM - SERUM 2.2 mg/dL (1.8-2.4); PHOSPHOROUS 3.6 mg/dL (2.5-4.9); POTASSIUM - SERUM 3.8 mmol/L (3.5-5.1); PROTEIN - SERUM 5.1 g/dL (6.4-8.2); SODIUM 137 mmol/L (136-145); UREA NITROGEN 14 mg/dL (7-18); eGFR NON AFRICAN AMERICAN > 90 mL/min (90-120)
[2020-07-07 05:29] LABS: ALT (SGPT) 35 U/L (10-68); CALC OSMOLALITY 275 mosm/kg (275-300); GLUCOSE 111 mg/dL (74-106)
--- NOTE | 2020-07-07 10:04 | NUR ---
Nutrition follow-up: Pt reports being hungry this morning; wants diet advanced now. Nurse is putting order in. Pt extubated 07/06 BIPAP as needed Labs reviewed Wt: 117# Pt reports good appetite with no issues chewing or swallowing; stable wt RDN will follow-up: 07/09/20
--- NOTE | 2020-07-07 10:40 | NUR ---
ARRIVE TO ROOM VIA WHEELCHAIR FROM ICU. ALERT AND ORIENTED X4. AMBULATES TO BED. GAIT STEADY. BIPAP AT BEDSIDE. CONTINUE PLAN OF CARE AND SAFETY PRECAUTIONS.
--- NOTE | 2020-07-07 19:46 | NUR ---
REPORT RECEIVED, WILL CONT POC. PT UP IN BED RECEIVING BREATHING TREATMENT, A&O. NO S/S OF DISTRESS OBSERVED. RR EVEN & UNLABORED ON 5LHF. BED LOCKED AND LOWERED, CL IN REACH. ASSESSMENT COMPLETED AT THIS TIME.
--- NOTE | 2020-07-08 03:53 | NUR ---
PT HAS BEEN ASKING QUESTIONS ABOUT WHAT HAS HAPPENED TO HER OVER THE PAST FEW DAYS AND HOW SHE ENDED UP IN ICU. THIS NURSE BEGAN EXPLAINING WHAT HAD HAPPENED BASED ON NOTES FROM PTS CHART, PT BEGAN REMEMBERING EVENTS. PT STATED THAT SHE FEELS MORE COMFORTABLE ABOUT GOING HOME WHEN THE MD'S RELEASE HER NOW THAT SHE KNOWS WHAT HAS HAPPENED TO HER.
[2020-07-08 04:00] VITALS: BP 99/59
[2020-07-08 06:32] LABS: BASOPHILS 0 % (0-2); EOSINOPHILS 1.2 % (0-7); HEMATOCRIT 33.8 % (36.0-48.0); IMMATURE GRANULOCYTES 0.2 % (0-5); LYMPHOCYTE ABS# 1.28 10x3/uL (1.18-3.74); LYMPHOCYTES 29.6 % (15-50); MCH 28.7 pg (26.0-34.0); MCHC 29.6 g/dL (31.0-37.0); MCV 96.8 fL (80.0-100.0); MEAN PLATELET VOLUME 9.5 fL (7.4-10.4); MONOCYTES 13.9 % (2-11); NEUTROPHIL ABS# 2.38 10x3/uL (1.56-6.13); NEUTROPHILS 55.1 % (40-80); PLATELET COUNT 223 10x3/uL (130-400); RBC 3.49 10x6/uL (4.00-5.40); RDW 14.2 % (11.5-14.5); WBC 4.3 10x3/uL (4.8-10.8)
[2020-07-08 06:46] LABS: ALBUMIN 2.1 g/dL (3.4-5.0); ALKALINE PHOSPHATASE 92 U/L (30-120); ALT (SGPT) 35 U/L (10-68); BILIRUBIN - TOTAL 0.28 mg/dL (0.2-1.3); CALC OSMOLALITY 276 mosm/kg (275-300); CARBON DIOXIDE 35.8 mmol/L (21.0-32.0); CHLORIDE - SERUM 102 mmol/L (98-107); GLUCOSE 103 mg/dL (74-106); MAGNESIUM - SERUM 1.9 mg/dL (1.8-2.4); PHOSPHOROUS 3.5 mg/dL (2.5-4.9); POTASSIUM - SERUM 4.3 mmol/L (3.5-5.1); PROTEIN - SERUM 4.8 g/dL (6.4-8.2); SODIUM 138 mmol/L (136-145); UREA NITROGEN 15 mg/dL (7-18)
[2020-07-08 06:47] LABS: CREATININE - SERUM 0.6 mg/dL (0.6-1.3); eGFR NON AFRICAN AMERICAN > 90 mL/min (90-120)
--- NOTE | 2020-07-08 07:20 | NUR ---
RECIEVE REPORT. ALERT AND ORIENTED X4. SITTING UP IN BED. DENIES ANY NEEDS. CONTINUE PLAN OF CARE AND SAFETY PRECAUTIONS.
[2020-07-08 07:28] VITALS: BP 99/59
[2020-07-08 15:00] VITALS: BP 136/80
--- NOTE | 2020-07-08 19:35 | NUR ---
ASSESSMENT COMPLETE, PT A&O. RESPERATIONS EVEN ON O2 AT 3 LITERS. IV TO RIGHT AC SL, SITE CLEAN AND DRY. PT DENIES PAIN OR NEEDS AT THIS TIME, BED LOW, CL IN REACH.
[2020-07-08 20:00] VITALS: BP 127/77
--- NOTE | 2020-07-08 20:09 | NUR ---
HS MEDS GIVEN WITH FRESH ICE WATER.
--- NOTE | 2020-07-08 23:57 | NUR ---
RESTING WITH EYES CLOSED, RESPERATIONS EVEN, NO S/S DISTRESS NOTED.
[2020-07-09] VITALS: BP 120/57
[2020-07-09 04:00] VITALS: BP 128/60
--- NOTE | 2020-07-09 05:44 | NUR ---
I have reviewed this patient and I concur with the Shift Assessment completed by the Licensed Practical Nurse today this shift.
[2020-07-09 06:34] LABS: BASOPHILS 0 % (0-2); EOSINOPHILS 1.8 % (0-7); HEMATOCRIT 34.4 % (36.0-48.0); HEMOGLOBIN 10.3 g/dL (12-16); IMMATURE GRANULOCYTES 0.2 % (0-5); LYMPHOCYTE ABS# 1.17 10x3/uL (1.18-3.74); LYMPHOCYTES 26.4 % (15-50); MCH 28.6 pg (26.0-34.0); MCHC 29.9 g/dL (31.0-37.0); MCV 95.6 fL (80.0-100.0); MEAN PLATELET VOLUME 9.6 fL (7.4-10.4); MONOCYTES 11.5 % (2-11); NEUTROPHIL ABS# 2.66 10x3/uL (1.56-6.13); NEUTROPHILS 60.1 % (40-80); PLATELET COUNT 228 10x3/uL (130-400); RDW 13.7 % (11.5-14.5); WBC 4.4 10x3/uL (4.8-10.8)
[2020-07-09 07:06] LABS: ALBUMIN 2.2 g/dL (3.4-5.0); ALKALINE PHOSPHATASE 92 U/L (30-120); ALT (SGPT) 39 U/L (10-68); BILIRUBIN - TOTAL 0.25 mg/dL (0.2-1.3); CALC OSMOLALITY 272 mosm/kg (275-300); CARBON DIOXIDE 32.7 mmol/L (21.0-32.0); CHLORIDE - SERUM 103 mmol/L (98-107); CREATININE - SERUM 0.6 mg/dL (0.6-1.3); GLUCOSE 97 mg/dL (74-106); MAGNESIUM - SERUM 1.9 mg/dL (1.8-2.4); PHOSPHOROUS 2.9 mg/dL (2.5-4.9); POTASSIUM - SERUM 4.2 mmol/L (3.5-5.1); PROTEIN - SERUM 4.9 g/dL (6.4-8.2); SODIUM 136 mmol/L (136-145); UREA NITROGEN 15 mg/dL (7-18); eGFR NON AFRICAN AMERICAN > 90 mL/min (90-120)
[2020-07-09 08:12] VITALS: BP 103/60
[2020-07-09 12:16] VITALS: BP 107/58
--- NOTE | 2020-07-09 12:38 | NUR ---
Nutrition Reassessment/Follow-up: Eating well. Noted plans to d/c soon. Diet: Regular PO intake: 100% x 6 meals Wt: 117# (07/07) Labs noted: Ca 8.0, Alb 2.2 Meds noted: Lasix, KDur, Florajen, Prednisone, Protonix, electrolyte protocol Est needs: 0585-7975 kcal/day (25-30 kcal/kg) 55-65 g protein/day (1-1.2 g/kg) 3397-9203 mL fluid/day (1 mL/kcal) or per MD -RD will follow up within 7 days if pt still admitted.
--- NOTE | 2020-07-09 16:23 | NUR ---
D/C RIGHT AC IV, TIP INTACT. DISCHARGE INSTRUCTIONS GIVEN VERBALLY AND HANDOUTS PROVIDED. DAUGHTER BRINGING HOME 02. WILL AWAIT ARRIVAL AND TAKE DOWN TO ED ENTRANCE VIA WHEELCHAIR.
--- NOTE | 2020-07-09 17:04 | NUR ---
TAKEN DOWN TO ED ENTRANCE VIA WHEELCHAIR. STATES SHE CANNOT FIND HER MEDICATIONS FROM HOME. CALLED PHARMACY AND THEY HAVE NOTHING. LOOKED IN BAGS AND CASSETTE AND FOUND NOTHING. PATIENT STATES THEY COULD BE AT HOME. TOLD HER TO CALL BACK AND LET US KNOW IF SHE FINDS THEM.
== END 2020-07-09 17:05 | disposition home or self-care (01) | DRG 208 ==
LOC: D.ER 19:59 → D.M2 22:10 → D.ICU 22:10 → D.CVICU 07-06 15:36 → D.ICU 07-07 07:36 → D.M2 07-07 10:35
PROVIDERS: Family Medicine; Internal Medicine Pulmonary Disease; ADMIT Emergency Medicine; ATTEND Emergency Medicine
PROC: 5A1945Z Respiratory Ventilation, 24-96 Consecutive Hours (ICD-10-PCS; principal; 2020-07-04)
DX: J96.22 Acute and chronic respiratory failure with hypercapnia (principal); J44.1 Chronic obstructive pulmonary disease with (acute) exacerbation; E87.1 Hypo-osmolality and hyponatremia; E87.6 Hypokalemia; G47.33 Obstructive sleep apnea (adult) (pediatric); K21.9 Gastro-esophageal reflux disease without esophagitis; F41.8 Other specified anxiety disorders; M19.90 Unspecified osteoarthritis, unspecified site; G89.29 Other chronic pain; K27.9 Peptic ulcer, site unspecified, unspecified as acute or chronic, without hemorrhage or perforation; J96.21 Acute and chronic respiratory failure with hypoxia; E83.42 Hypomagnesemia; E83.39 Other disorders of phosphorus metabolism; I11.0 Hypertensive heart disease with heart failure; I50.9 Heart failure, unspecified

== ENCOUNTER 2020-07-23 11:18 | Inpatient (IN) | payer MEDICARE, MEDICAID ==
[2020-07-23] VITALS (7 sets, daily range): BP systolic 91–135; BP diastolic 60–75
[~2020-07-23] VITALS: Ht 157.5 cm; Wt 50.1 kg
--- NOTE | 2020-07-23 11:53 | NUR ---
RT NOTIFIED OF TREATMENT ET ABG.
[2020-07-23 12:01] LABS: BASOPHILS 0.4 % (0-2); EOSINOPHILS 1.8 % (0-7); HEMATOCRIT 44.3 % (36.0-48.0); HEMOGLOBIN 13.9 g/dL (12-16); IMMATURE GRANULOCYTES 0.2 % (0-5); LYMPHOCYTE ABS# 1.45 10x3/uL (1.18-3.74); LYMPHOCYTES 31.8 % (15-50); MCHC 31.4 g/dL (31.0-37.0); MCV 92.3 fL (80.0-100.0); MEAN PLATELET VOLUME 9.2 fL (7.4-10.4); MONOCYTES 12.1 % (2-11); NEUTROPHIL ABS# 2.45 10x3/uL (1.56-6.13); NEUTROPHILS 53.7 % (40-80); PLATELET COUNT 190 10x3/uL (130-400); RDW 13.3 % (11.5-14.5); WBC 4.6 10x3/uL (4.8-10.8)
[2020-07-23 12:10] LABS: CALC OSMOLALITY 267 mosm/kg (275-300); CALCIUM 8.9 mg/dL (8.5-10.1); CARBON DIOXIDE 24.5 mmol/L (21.0-32.0); CHLORIDE - SERUM 99 mmol/L (98-107); CREATININE - SERUM 0.6 mg/dL (0.6-1.3); POTASSIUM - SERUM 4.2 mmol/L (3.5-5.1); SODIUM 136 mmol/L (136-145); UREA NITROGEN 7 mg/dL (7-18); eGFR NON AFRICAN AMERICAN > 90 mL/min (90-120)
[2020-07-23 12:12] LABS: GLUCOSE 63 mg/dL (74-106)
[2020-07-23 12:18] LABS: APTT 26.2 SECONDS (22.8-39.4); INR 1.01 (0.85-1.17); PROTIME 12.3 SECONDS (11.6-15.0)
[2020-07-23 12:27] LABS: ALBUMIN 3.1 g/dL (3.4-5.0); ALKALINE PHOSPHATASE 108 U/L (30-120); ALT (SGPT) 21 U/L (10-68); AMYLASE - SERUM 29 U/L (25-115); BILIRUBIN - TOTAL 0.76 mg/dL (0.2-1.3); CKMB 2.4 U/L (0.0-3.6); CREATINE KINASE 37 UL (21-215); LIPASE 92 U/L (73-393); PRO BNP 37 pg/mL (0-125); PROTEIN - SERUM 6.4 g/dL (6.4-8.2); TROPONIN-I < 0.017 ng/mL (0.000-0.060)
--- NOTE | 2020-07-23 13:34 | NUR ---
FSBS 198
--- NOTE | 2020-07-23 14:30 | NUR ---
PT TAKEN TO CT BY TECH
--- NOTE | 2020-07-23 15:18 | NUR ---
URINE COLLECTED AND SENT TO LAB
[2020-07-23 15:32] LABS: BILIRUBIN NEGATIVE (NEGATIVE); KETONE LARGE mg/dL (NEGATIVE); NITRITE NEGATIVE (NEGATIVE); UROBILINOGEN NORMAL mg/dL (< 2)
--- NOTE | 2020-07-23 22:00 | NUR ---
PTS IV WOULD NOT FLUSH OR RUN FLUIDS FROM PUMP. RESITED IV TO R FOREARM. NS INFUSING AT 75CC/HR. 18G TO THE L AC WAS REMOVED WITH CATHETER INTACT.
[2020-07-23] MEDS ORDERED: KLONOPIN1 MG PO (22:58)
[2020-07-24 04:00] VITALS: BP 135/75
[2020-07-24 04:37] VITALS: BP 135/72; BMI 20.1
[2020-07-24 06:11] LABS: BASOPHILS 0.2 % (0-2); EOSINOPHILS 1.1 % (0-7); HEMOGLOBIN 13.2 g/dL (12-16); IMMATURE GRANULOCYTES 0.2 % (0-5); LYMPHOCYTES 35.9 % (15-50); MCH 28.9 pg (26.0-34.0); MCHC 31.4 g/dL (31.0-37.0); MCV 92.1 fL (80.0-100.0); MEAN PLATELET VOLUME 9.6 fL (7.4-10.4); NEUTROPHIL ABS# 2.45 10x3/uL (1.56-6.13); NEUTROPHILS 51.6 % (40-80); PLATELET COUNT 174 10x3/uL (130-400); RBC 4.56 10x6/uL (4.00-5.40); RDW 13.5 % (11.5-14.5); WBC 4.7 10x3/uL (4.8-10.8)
[2020-07-24 06:31] LABS: ALBUMIN 2.8 g/dL (3.4-5.0); ALKALINE PHOSPHATASE 135 U/L (30-120); BILIRUBIN - TOTAL 0.67 mg/dL (0.2-1.3); CALCIUM 8.4 mg/dL (8.5-10.1); CARBON DIOXIDE 25.3 mmol/L (21.0-32.0); CHLORIDE - SERUM 101 mmol/L (98-107); CREATININE - SERUM 0.7 mg/dL (0.6-1.3); MAGNESIUM - SERUM 1.4 mg/dL (1.8-2.4); POTASSIUM - SERUM 3.6 mmol/L (3.5-5.1); PROTEIN - SERUM 5.8 g/dL (6.4-8.2); SODIUM 137 mmol/L (136-145); UREA NITROGEN 6 mg/dL (7-18); eGFR NON AFRICAN AMERICAN > 90 mL/min (90-120)
[2020-07-24 06:33] LABS: ALT (SGPT) 36 U/L (10-68); CALC OSMOLALITY 269 mosm/kg (275-300); GLUCOSE 66 mg/dL (74-106)
[2020-07-24 07:00] VITALS: BP 135/67
[2020-07-24 11:30] VITALS: BP 133/70
[2020-07-24 12:42] VITALS: BMI 20.1
--- NOTE | 2020-07-24 13:33 | NUR ---
PATIENT REQUEST NEW NURSE. REQUESTING PAIN MEDICATION AND NAUSEA MEDICATION, STATES SHE HAS BEEN ASKING FOR MEDICATION SINCE 0900 TODAY. HAS NOT RECEIVED ANYTHING. CALLED [facility] FOR ORDERS. ABHINAV WAS D/C DUE TO INDUCING SEIZURES PER DR. SHEPHERD. PATIENT STATES SHE WAS NEVER IN ICU ON TUESDAY AND CHART DOES NOT SHOW SHE WAS IN THE HOSPITAL TUESDAY. GOING AHEAD WITH ISAI MEYER ORDERS. WILL MONITOR PATIENT TO ENSURE THERE IS NO REACTION.
[2020-07-24 14:00] VITALS: BP 140/65
--- NOTE | 2020-07-24 19:00 | NUR ---
RECEIVED SHIFT REPORT FROM DAY SHIFT NURSE
--- NOTE | 2020-07-24 19:01 | MORECARE ---
CASE MANAGEMENT DISCHARGE SUMMARY PATIENT: LANE ONEAL UNIT: [id number] ADM DATE: 07/23/20 AGE: 60 : 62 SEX: F ROOM/BED: [facility] AUTHOR: MERA,DOC PHYSICIAN: REFERRING PHYSICIAN: BESSY CHOWDARY MD DATE OF SERVICE: 07/24/20 Case Management Discharge Planning Summary DCP REVIEW SUMMARY ANTICIPATED D/C DATE: EXPECTED LOS : CASE STATUS: DCP Initiated INITIAL REVIEW: 07/23/2020 INITIAL REVIEWER: Wanda Gross FINAL DISCHARGE DISPOSITION: : FINAL REVIEWER: FINAL REVIEW DATE: DCP Focus Questions & Answers DCP Screen QUESTION: ANSWER High Risk Factors: : 3 or more ED visits within the last 60 days DCP Evaluation QUESTION: ANSWER Patient's ability to cope with chronic illness : d. No chronic illness Would patient like to participate in any Care Coordination programs (if applicable): : Not applicable Mental health screen: : No mental health history DCP Re-evaluation QUESTION: ANSWER Would patient like to participate in any Care Coordination programs (if applicable): : Not applicable PATIENT: LANE ONEAL ENCOUNTER: [id number] MEDICAL RECORD#: [id number] ADMISSION DATE: 07/23/2020 DISCHARGE DATE: ATTENDING MD: BESSY PATTERSON : AGE: 60 MARITAL STATUS: D DC PLAN ID: [id number] FACILITY: [facility] PRINTED ON: 07/24/20 19:01 CT All edits/amendments must be made on the electronic document DICTATION DATE: 07/24/201900 SOUND PRINTER: TAISHA 07/24/201900 RPT#: [id number] DC DATE: STATUS: ADM IN [facility] [address] [place] [address] END OF REPORT
--- NOTE | 2020-07-24 19:12 | MORECARE ---
CASE MANAGEMENT DISCHARGE SUMMARY PATIENT: LANE ONEAL UNIT: [id number] ADM DATE: 07/23/20 AGE: 60 : 62 SEX: F ROOM/BED: 2111 AUTHOR: MERA,DOC PHYSICIAN: REFERRING PHYSICIAN: BESSY CHOWDARY MD DATE OF SERVICE: 07/24/20 Case Management Discharge Planning Summary DCP REVIEW SUMMARY ANTICIPATED D/C DATE: EXPECTED LOS : CASE STATUS: DCP Initiated INITIAL REVIEW: 07/23/2020 INITIAL REVIEWER: Wanda Gross FINAL DISCHARGE DISPOSITION: : FINAL REVIEWER: FINAL REVIEW DATE: DCP Focus Questions & Answers DCP Screen QUESTION: ANSWER High Risk Factors: : 3 or more ED visits within the last 60 days DCP Evaluation QUESTION: ANSWER Patient's ability to cope with chronic illness : c. Inadequate (3+ ED visits in 6 mos., readmits within 30 days, 2+ hospital admissions in 1 yr.) Family / Caregiver's ability to cope with chronic illness: : b. Minimal (occasionally not dependable to meet pt's. needs, can meet pt's. basic ADL's) Physical Status: : Compromised nutritional status Living Arrangements: : Home with Parents Baseline cognitive status: : *Oriented to person, place, situation, time and present Medication Management: : Patient states cannot afford medications Pharmacy name(s): : [facility] Would patient like to participate in any Care Coordination programs (if applicable): : Not applicable Does the patient have electricity at home? : Yes Does the patient have running water in their house? : Yes Mental health screen: : No mental health history DCP Re-evaluation QUESTION: ANSWER Would patient like to participate in any Care Coordination programs (if applicable): : Not applicable PATIENT: LANE ONEAL ENCOUNTER: [id number] MEDICAL RECORD#: [id number] ADMISSION DATE: 07/23/2020 DISCHARGE DATE: ATTENDING MD: BESSY PATTERSON : AGE: 60 MARITAL STATUS: D DC PLAN ID: [id number] FACILITY: [facility] PRINTED ON: 07/24/20 19:12 CT All edits/amendments must be made on the electronic document DICTATION DATE: 07/24/201911 VP PRODUCT MANAGEMENT: TAISHA 07/24/201911 RPT#: [id number] DC DATE: STATUS: ADM IN [facility] [address] [facility] [place] [address] END OF REPORT
--- NOTE | 2020-07-24 19:59 | NUR ---
ASSESSMENT PER FLOW SHEET, VS OBTAINED PER CYTOTECHNOLOGIST SUPERVISOR, IV IN RIGHT FA NO LONGER PATENT, PT REPORTS "IT'S REALLY HURTING", IV REMOVED, TIP INTACT, PRESSURE HELD FOR 2 MINUTES, BANDAID APPLIED, PT REPORTS FLATUS, NO BM, AND VOIDING WITH NO DIFFICULTY, ATTEMPTED IV START WITH NO SUCCESS, INFORMED PT THAT I WILL HAVE ANOTHER NURSE COME AND TRY, PT VERBALIZES UNDERSTANDING, DENIES NEEDS AT THIS TIME
--- NOTE | 2020-07-24 21:11 | NUR ---
ADM 2100 MEDS PER MD ORDERS, SEE EMAR
[2020-07-24 22:11] VITALS: BP 137/65
--- NOTE | 2020-07-24 22:18 | NUR ---
MARLENY SALINAS RN IN ROOM FOR IV START
--- NOTE | 2020-07-24 23:09 | NUR ---
MARLENY SALINAS RN ATTEMPTED X 3 WITH NO SUCCESS, SOFIA PARISH RN, CHARGE NURSE TO ROOM TO ATTEMPT IV
--- NOTE | 2020-07-24 23:21 | NUR ---
SOFIA PARISH RN, CHARGE NURSE REPORTS SHE STARTED IV IN RIGHT FA, FIRST ATTEMPT, WITH A 20 GAUGE, SALINE LOCKED AT THIS TIME
--- NOTE | 2020-07-24 23:30 | NUR ---
THIS RN TO ROOM, PT REQUESTS TO GET UP TO BR BEFORE STARTING FLUIDS, PT UP TO BR, GAIT STEADY, PT INST TO USE CALL LIGHT FOR ANY ASSISTANCE, OR BACK TO BED, COMPLETE BEDDING CHANGE DONE
--- NOTE | 2020-07-24 23:47 | NUR ---
PT BACK TO BED, REPORTS VOIDING, NO BM, SALINE LOCK CONVERTED TO IV, NS RESTARED AT 75MLS/HR
--- NOTE | 2020-07-25 01:30 | NUR ---
PT RESTING WITH EYES CLOSED, RESP QUIET, NO DISTRESS NOTED, LEFT UNDISTURBED AT THIS TIME
[2020-07-25 02:11] VITALS: BP 121/62
--- NOTE | 2020-07-25 03:10 | NUR ---
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
--- NOTE | 2020-07-25 03:14 | NUR ---
RESP NOTIFIED FOR TREATMENT
--- NOTE | 2020-07-25 03:19 | NUR ---
RESP TO ROOM FOR TREATMENT
--- NOTE | 2020-07-25 04:18 | NUR ---
PT RESTING WITH EYES CLOSED, RESP QUIET, NO DISTRESS NOTED, LEFT UNDISTURBED AT THIS TIME, BED IN LOW POSITION, SIDE RAILS X 2, CALL LIGHT IN REACH
[2020-07-25 04:36] LABS: BASOPHILS 0.3 % (0-2); EOSINOPHILS 0.6 % (0-7); HEMATOCRIT 35.5 % (36.0-48.0); HEMOGLOBIN 11.3 g/dL (12-16); LYMPHOCYTE ABS# 1.05 10x3/uL (1.18-3.74); LYMPHOCYTES 31.9 % (15-50); MCH 28.7 pg (26.0-34.0); MCHC 31.8 g/dL (31.0-37.0); MEAN PLATELET VOLUME 9.4 fL (7.4-10.4); MONOCYTES 14.3 % (2-11); NEUTROPHIL ABS# 1.74 10x3/uL (1.56-6.13); NEUTROPHILS 52.9 % (40-80); RBC 3.94 10x6/uL (4.00-5.40); RDW 13.2 % (11.5-14.5)
[2020-07-25 04:43] LABS: MCV 90.1 fL (80.0-100.0); PLATELET COUNT 136 10x3/uL (130-400); WBC 3.3 10x3/uL (4.8-10.8)
[2020-07-25 04:59] LABS: ALBUMIN 2.5 g/dL (3.4-5.0); ALKALINE PHOSPHATASE 123 U/L (30-120); ALT (SGPT) 33 U/L (10-68); BILIRUBIN - TOTAL 0.49 mg/dL (0.2-1.3); CALCIUM 8.1 mg/dL (8.5-10.1); CHLORIDE - SERUM 103 mmol/L (98-107); CREATININE - SERUM 0.6 mg/dL (0.6-1.3); MAGNESIUM - SERUM 1.5 mg/dL (1.8-2.4); PROTEIN - SERUM 5.2 g/dL (6.4-8.2); SODIUM 137 mmol/L (136-145); eGFR NON AFRICAN AMERICAN > 90 mL/min (90-120)
[2020-07-25 05:24] LABS: CALC OSMOLALITY 274 mosm/kg (275-300); CARBON DIOXIDE 32.6 mmol/L (21.0-32.0); GLUCOSE 136 mg/dL (74-106); UREA NITROGEN 9 mg/dL (7-18)
[2020-07-25 05:25] VITALS: BP 130/61
--- NOTE | 2020-07-25 05:29 | NUR ---
PT RESTING WITH EYES CLOSED, AROUSES TO SOFT VERBAL STIMULATION, ADM 0600 AND MAG OX PER MD ORDERS, SEE EMAR
--- NOTE | 2020-07-25 07:00 | NUR ---
SHIFT REPORT TO DAY SHIFT
--- NOTE | 2020-07-25 07:00 | NUR ---
PT LYING IN BED WITH EYES CLOSED. RESP EVEN AND UNLABORED. RAISES TO VERBAL STIMULI. O2 2 LPM V[address] NC IN PL[address]. AAOX4. PT DENIES NEEDS AT THIS TIME. CLIR. BED IN LOWEST POSITION. SIDE RAILS X2
[2020-07-25 08:42] VITALS: BP 117/62
--- NOTE | 2020-07-25 14:39 | NUR ---
REHAB PRESCREEN RECEIVED. PATIENTS PT AND OT EVALUATIONS ARE STILL PENDING. I HAVE SPOKE WITH HAL IN THERAPY AND OCCUPATIONAL THERAPY WILL NOT BE HERE UNTIL 1529. I WILL LOOK BACK IN THE CHART AFTER THAT TIME FOR THE PATIENTS FUNCTIONAL STATUS. THANK YOU FOR THE REFERRAL BETH RENNER RN CLINICAL LIAISON, INPATIENT REHAB.
[2020-07-25 16:00] VITALS: BP 125/72
--- NOTE | 2020-07-25 19:32 | NUR ---
REPORT RECIEVED AND INITIAL ROUNDS COMPLETED. PT RESTING. NO DISTRESS. CALL LIGHT IN REACH.
[2020-07-25 21:31] VITALS: BP 121/71
--- NOTE | 2020-07-25 23:55 | NUR ---
ATTEMPTED TO PLACE PT ON BIPAP. PT STATES NOT READY AT THIS TIME. SHE'S BORED. AND MILLING AROUND ROOM PERFORMING TOILETING. FITTED FACEMASK FOR HER AND SHE STATES SHE WILL PUT ON WHEN SHE IS READY FOR BED. RT TOLD PT I WOULD STOP BY AND CHECK TO BE SURE IT IS ON A LITTLE LATER.
[2020-07-26 01:11] VITALS: BP 140/80
--- NOTE | 2020-07-26 01:25 | NUR ---
RUN OF 12 VTACH PER MONITORS. PT RESTING IN BED. DENIES PAIN OR DISCOMFORT. CALL LIGHT IN REACH.
--- NOTE | 2020-07-26 03:02 | NUR ---
AT 0030 PT WAS TALKING WITH NOVELTY WORKER AND NOT READY TO GO TO SLEEP. WENT BACK AGAIN TO SEE IF PT READY FOR BIPAP. PT IS STILL WATCHING TV AND STILL NOT READY FOR BIPAP AT THIS TIME.
[2020-07-26 05:15] LABS: BASOPHILS 0.2 % (0-2); EOSINOPHILS 0.2 % (0-7); HEMATOCRIT 37.6 % (36.0-48.0); HEMOGLOBIN 11.5 g/dL (12-16); LYMPHOCYTES 22.4 % (15-50); MCH 28.3 pg (26.0-34.0); MCHC 30.6 g/dL (31.0-37.0); MEAN PLATELET VOLUME 9.8 fL (7.4-10.4); NEUTROPHIL ABS# 3.26 10x3/uL (1.56-6.13); NEUTROPHILS 66.2 % (40-80); PLATELET COUNT 150 10x3/uL (130-400); RBC 4.06 10x6/uL (4.00-5.40); RDW 13.8 % (11.5-14.5)
[2020-07-26 05:18] LABS: MCV 92.6 fL (80.0-100.0); WBC 4.9 10x3/uL (4.8-10.8)
[2020-07-26 05:19] VITALS: BP 183/72
[2020-07-26 05:58] LABS: ALBUMIN 2.9 g/dL (3.4-5.0); ALKALINE PHOSPHATASE 116 U/L (30-120); ALT (SGPT) 31 U/L (10-68); BILIRUBIN - TOTAL 0.38 mg/dL (0.2-1.3); CALCIUM 8.8 mg/dL (8.5-10.1); CARBON DIOXIDE 33.7 mmol/L (21.0-32.0); CHLORIDE - SERUM 105 mmol/L (98-107); CREATININE - SERUM 0.6 mg/dL (0.6-1.3); GLUCOSE 107 mg/dL (74-106); MAGNESIUM - SERUM 1.8 mg/dL (1.8-2.4); POTASSIUM - SERUM 4.4 mmol/L (3.5-5.1); PROTEIN - SERUM 5.6 g/dL (6.4-8.2); SODIUM 141 mmol/L (136-145); eGFR NON AFRICAN AMERICAN > 90 mL/min (90-120)
[2020-07-26 06:11] LABS: CALC OSMOLALITY 280 mosm/kg (275-300); UREA NITROGEN 13 mg/dL (7-18)
[2020-07-26 07:30] VITALS: BP 127/67
--- NOTE | 2020-07-26 07:30 | NUR ---
INITIAL ROUNDS- PT SITTING IN BED, RECEIVING AN UPDRAFT. PT IS A/O X4, RESP EVEN AND UNLABORED ON 2L. RT FA INFUSING NS AT 75CC/HR. SR-98 ON TELE. ALL NEEDS MET, CALL LIGHT IN REACH, WILL CONTINUE PLAN OF CARE.
--- NOTE | 2020-07-26 08:37 | NUR ---
AM MEDS GIVEN AT THIS TIME. ALSO GAVE 1MG OF MORPHIEN FOR PAIN LEVEL OF 9/10. ALSO GAVE 4MG OF ZOFRAN. DR. VALADEZ AT BEDSIDE TO ASSESS PT. NEW ORDER TO CHANGE DIET TO REGULAR DIET AND ADD GABAPETIN 600MG TID. ALL NEEDS MET, CALL LIGHT IN REACH.
[2020-07-26 10:30] VITALS: BP 111/59
[2020-07-26 15:00] VITALS: BP 119/64
--- NOTE | 2020-07-26 20:21 | NUR ---
INITIAL ROUNDS AND ASSESSMENT COMPLETED. PT SITTING IN BEDSIDE CHAIR. TEARFUL. STATES THE CASEMANAGER TOLD HER SHE WOULD HAVE TO GO TO A RESPIRATORY REHAB. SAYING SHE CANNOT BE AWAY FROM HER MOTHER THAT LONG. APPARENTLY SHE FEELS SHE IS THE CAREGIVER FOR HER MOTHER, EVEN THOUGH THE PATIENT HERSELF IS FREQUENTLY IN/OUT OF THE HOSPITAL. ENCOURAGE PT TO VOICE HER CONCERNS TO THE CASEMANAGER AND UNTIL THEN, FOLLOW PLAN OF CARE, DO THE BEST SHE CAN SO SHE CAN BE AT HER BEST WHEN SHE DISCHARGES. ENCOURAGED INCENTIVE SPIROMETER USE.
[2020-07-26 21:07] VITALS: BP 125/66
[2020-07-27 01:23] VITALS: BP 134/77
[2020-07-27 05:07] VITALS: BP 170/77
[2020-07-27 06:14] LABS: BASOPHILS 0.2 % (0-2); EOSINOPHILS 0 % (0-7); HEMOGLOBIN 11.9 g/dL (12-16); IMMATURE GRANULOCYTES 0.2 % (0-5); LYMPHOCYTE ABS# 1.29 10x3/uL (1.18-3.74); LYMPHOCYTES 31.3 % (15-50); MCH 28.4 pg (26.0-34.0); MCHC 29.8 g/dL (31.0-37.0); MEAN PLATELET VOLUME 9.8 fL (7.4-10.4); MONOCYTES 12.6 % (2-11); NEUTROPHIL ABS# 2.29 10x3/uL (1.56-6.13); NEUTROPHILS 55.7 % (40-80); RBC 4.19 10x6/uL (4.00-5.40); RDW 13.9 % (11.5-14.5); WBC 4.1 10x3/uL (4.8-10.8)
[2020-07-27 06:15] LABS: MCV 95.5 fL (80.0-100.0); PLATELET COUNT 192 10x3/uL (130-400)
[2020-07-27 06:44] LABS: ALBUMIN 3.1 g/dL (3.4-5.0); ALKALINE PHOSPHATASE 140 U/L (30-120); CALC OSMOLALITY 279 mosm/kg (275-300); CALCIUM 8.6 mg/dL (8.5-10.1); CARBON DIOXIDE 39.1 mmol/L (21.0-32.0); CHLORIDE - SERUM 101 mmol/L (98-107); CREATININE - SERUM 0.5 mg/dL (0.6-1.3); GLUCOSE 106 mg/dL (74-106); MAGNESIUM - SERUM 1.7 mg/dL (1.8-2.4); POTASSIUM - SERUM 4.9 mmol/L (3.5-5.1); PROTEIN - SERUM 5.8 g/dL (6.4-8.2); SODIUM 141 mmol/L (136-145); UREA NITROGEN 10 mg/dL (7-18); eGFR NON AFRICAN AMERICAN > 90 mL/min (90-120)
[2020-07-27 06:52] LABS: ALT (SGPT) 57 U/L (10-68)
--- NOTE | 2020-07-27 07:45 | NUR ---
INITIAL ROUNDS- PT RESTING COMFORTABLY IN BED. A/O X4, RESP EVEN AND NONLABORED ON 2L NC. RT FA SL, PT REFUSES TO HAVE FLUIDS RUNNIG. SR88 ON TELE. ALL NEEDS MET, CALL LIGHT IN REACH, WILL CONTINUE PLAN OF CARE.
[2020-07-27 08:07] VITALS: BP 113/62
--- NOTE | 2020-07-27 08:59 | NUR ---
AM MEDS GIVEN AT THIS TIME, ALSO GAVE 1MG OF MORPHINE FOR PAIN LEVEL OF 9/10. ALSO GAVE 4MG OF ZOFRAN. DR. VOSS AT BEDSIDE TO ASSESS PT. ALL NEEDS MET, CALL LIGHT IN REACH.
[2020-07-27 11:22] VITALS: BP 113/68
--- NOTE | 2020-07-27 11:41 | NUR ---
REHAB PRESCREEN FOLLOW UP: PATIENT LOOKS LIKE A GOOD CANDIDATE FOR INPATIENT REHAB. I WILL SEND HER INFORMATION OFF FOR AUTHORIZATION TOMORROW MORNING, AND WE WILL WAIT ON DETERMINATION FROM [facility]. THANK YOU FOR THE REFERRAL. BETH RENNER RN CLINICAL LIAISON, INPATIENT REHAB.
--- NOTE | 2020-07-27 12:11 | MORECARE ---
CASE MANAGEMENT DISCHARGE SUMMARY PATIENT: LANE ONEAL UNIT: [id number] ADM DATE: 07/24/20 AGE: 60 : 62 SEX: F ROOM/BED: D.0102 AUTHOR: MERA,DOC PHYSICIAN: REFERRING PHYSICIAN: BESSY CHOWDARY MD DATE OF SERVICE: 07/27/20 Case Management Discharge Planning Summary COMMENTS ENTERED DATE: 07/27/20 12:07 CT COMMENT TYPE: Discharge Planning REVIEWER: [facility]. CM met with patient to complete DC plan and to evaluate needs. Patient stated that she is unsure of why she was readmitted. Clinical documentation states that the patient was dyspneic and treated for hypoglycemia. Patient stated that she was able to obtain her medications after last discharge but unfortunately was not able to keep her follow up appointment. Patient stated that she followed the dc instructions given to her and was compliant with her medications. It appears that this readmission was due to an exacerbation of her chronic COPD condition. Patient lives independently with her mother, Nadia Lin, . Patient stated that her home is safe and has electricity and running water. Patient stated that the home has 1 step to enter and she is able to manage the steps without difficulty. Patient stated that she has no problems paying for medications and she fills her medications at [facility]. Patient stated that her primary care physician is Dr. Karimi. CM discussed availability of home health, rehab services, and medical equipment. Patient declined SNF, IPR, and DME. Patient would like [facility] services, with [facility] if she qualifies. Patient stated that she only drives to follow up with physicians. Patient stated that she has CHF and COPD. Patient stated she would like to have both Cardiac Rehab and Pulmonary Rehab. Patient further stated that she would like to speak to representatives of the rehabs. CM team informed patient that both cardiac and pulmonary rehab are likely outpatient services. The patient stated that she would like inpatient facilities. LAKESHIA signed for Cardiac Rehab, Respiratory Rehab, and Care IV HHS and placed in chart. CM team to find and present facilities for patient's choice. Patient stated that she has a Nebulizer, a Trilogy machine, and Oxygen concentrator through [facility]. Patient further stated that she has a wheelchair, bedside commode, cane, walker, and walk in shower with built-in shower bench. Patient voiced no other needs at this time and is satisfied with DC plan. DC IMM delivered, explained, signed by the patient, and placed in chart. Signed form also left with the patient. CM will continue to follow and will assist as needed with dc plans/needs. DCP REVIEW SUMMARY ANTICIPATED D/C DATE: EXPECTED LOS : CASE STATUS: DCP Initiated INITIAL REVIEW: 07/23/2020 INITIAL REVIEWER: Wanda Gross FINAL DISCHARGE DISPOSITION: : FINAL REVIEWER: FINAL REVIEW DATE: DCP Focus Questions & Answers DCP Screen QUESTION: ANSWER High Risk Factors: : 3 or more ED visits within the last 60 days DCP Evaluation QUESTION: ANSWER Patient's ability to cope with chronic illness : c. Inadequate (3+ ED visits in 6 mos., readmits within 30 days, 2+ hospital admissions in 1 yr.) Family / Caregiver's ability to cope with chronic illness: : b. Minimal (occasionally not dependable to meet pt's. needs, can meet pt's. basic ADL's) Physical Status: : Compromised nutritional status Living Arrangements: : Home with Parents Baseline cognitive status: : *Oriented to person, place, situation, time and present Medication Management: : Patient states cannot afford medications Pharmacy name(s): : [facility] Would patient like to participate in any Care Coordination programs (if applicable): : Not applicable Does the patient have electricity at home? : Yes Does the patient have running water in their house? : Yes Mental health screen: : No mental health history DCP Re-evaluation QUESTION: ANSWER Patient and/or caregiver agree upon recommended discharge plan? : Yes Patient's current cognitive status: : *Oriented to person, place, situation, time and present Reassessment due to: : New discovery of admission to an acute inpatient facility within 30 days Functional screen assessment: : Basic needs can adequately be met by self Patient gives permission to discuss discharge plans with: (name, relationship and number) : motherNadia, Equipment needed for post hospitalization: : None Patient with capacity for self-care or can be cared for in same environment as prior to hospitalization? : Yes Physical environment modification needed / anticipated for discharge: : No Would patient like to participate in any Care Coordination programs (if applicable): : Not applicable PATIENT: LANE ONEAL: [id number] MEDICAL RECORD#: [id number] ADMISSION DATE: 07/24/2020 DISCHARGE DATE: ATTENDING MD: BESSY PATTERSON : AGE: 60 MARITAL STATUS: D DC PLAN ID: [id number] FACILITY: [facility] PRINTED ON: 07/27/20 12:11 CT All edits/amendments must be made on the electronic document DICTATION DATE: 07/27/20 121 TIRE MOLD ENGRAVER: TAISHA 07/27/20 121 RPT#: [id number] DC DATE: STATUS: ADM IN [facility] [address] [place] [address] END OF REPORT
--- NOTE | 2020-07-27 12:39 | NUR ---
PT FINISHING EATING LUNCH, DENIES ANY NEEDS AT THIS TIME. CALL LIGHT IN REACH.
--- NOTE | 2020-07-27 13:41 | NUR ---
PATIENT IS NOW STATING SHE DOES NOT WANT INPATIENT REHAB, I WILL NOT SEND FOR AUTHORIZATION IN THE MORNING. I WILL HOLD OFF IN CASE SHE CHANGES HER MIND PRIOR TO DISHCARGE. BETH RENNER RN CLINICAL LIAISON, INPATIENT REHAB
[2020-07-27 15:18] VITALS: BP 133/78
[2020-07-27 20:00] VITALS: BP 127/67
[2020-07-28] VITALS: BP 124/74
[2020-07-28 04:00] VITALS: BP 130/64
--- NOTE | 2020-07-28 05:35 | NUR ---
PT'S MOTHER CAME OUT OF ROOM AND YELLED THAT PT WAS ON THE FLOOR. STAFF TO ROOM. ASSESSED PT. PT IS ALERT/ORIENTED. HER MOTHER TELLING HER TO SETTLE DOWN AND ANSWER THE NURSES QUESTIONS. PT INDICATED THAT HER LEFT HIP AND COCCXY AREA ARE HURTING. PT WAS STOOD UP BY STAFF X 3, ABLE TO GET BACK IN BED AND MOVE LEGS FREELY ON HER OWN. PT THEN WRITHING ALL OVER THE BED AND KICKING AT HER COVERS SAYING HER REAR AND HER LEG (LEFT) HURT. PAGE TO AMINA DAHL APN.
--- NOTE | 2020-07-28 05:49 | NUR ---
RETURN CALL FROM [facility] APN AND REPORTED FALL AND PT'S C/O LEFT HIP AND SACRAL/COCCYX AREA PAIN. ORDERS RECIEVED. PT'S MOTHER IS AT BEDSIDE SO SHE IS IN KNOWLEDGE OF PT'S FALL. PT'S MOM BACK IN THE HALLWAY. PT DEMANDING TO GO TO BATHROOM TO "POOP" AND WILL NOT USE A BEDPAN. STAFF AND PT'S MOM ASSISTED PT TO AMBULATE INTO BATHROOM FOR HER TO VOID, NO BM. WALKED BACK TO BED, PT NOW IN THE BED. SR UP X 3. CALL LIGHT IN REACH.
[2020-07-28 06:29] LABS: BASOPHILS 0 % (0-2); EOSINOPHILS 0 % (0-7); HEMATOCRIT 38.7 % (36.0-48.0); HEMOGLOBIN 11.4 g/dL (12-16); IMMATURE GRANULOCYTES 0.8 % (0-5); LYMPHOCYTE ABS# 0.43 10x3/uL (1.18-3.74); LYMPHOCYTES 11.2 % (15-50); MCH 28.7 pg (26.0-34.0); MCHC 29.5 g/dL (31.0-37.0); MEAN PLATELET VOLUME 10.2 fL (7.4-10.4); MONOCYTES 3.9 % (2-11); NEUTROPHIL ABS# 3.23 10x3/uL (1.56-6.13); NEUTROPHILS 84.1 % (40-80); PLATELET COUNT 227 10x3/uL (130-400); RBC 3.97 10x6/uL (4.00-5.40); RDW 13.5 % (11.5-14.5); WBC 3.8 10x3/uL (4.8-10.8)
[2020-07-28 06:38] LABS: MCV 97.5 fL (80.0-100.0)
[2020-07-28 06:43] LABS: ALBUMIN 3.2 g/dL (3.4-5.0); ALKALINE PHOSPHATASE 188 U/L (30-120); BILIRUBIN - TOTAL 0.36 mg/dL (0.2-1.3); CALCIUM 8.5 mg/dL (8.5-10.1); CARBON DIOXIDE 36.6 mmol/L (21.0-32.0); CHLORIDE - SERUM 97 mmol/L (98-107); CREATININE - SERUM 0.6 mg/dL (0.6-1.3); MAGNESIUM - SERUM 1.9 mg/dL (1.8-2.4); PROTEIN - SERUM 6.1 g/dL (6.4-8.2); SODIUM 135 mmol/L (136-145); eGFR NON AFRICAN AMERICAN > 90 mL/min (90-120)
[2020-07-28 06:45] LABS: ALT (SGPT) 128 U/L (10-68); CALC OSMOLALITY 282 mosm/kg (275-300); GLUCOSE 293 mg/dL (74-106); UREA NITROGEN 17 mg/dL (7-18)
[2020-07-28 08:00] VITALS: BP 130/77
--- NOTE | 2020-07-28 08:21 | NUR ---
AM MEDS GIVEN AT THIS TIME INCLUDING PRN PAIN MEDICATION. PT AWAKE AND ALERT, RR EVEN NON LABORED, O2 IN PLACE. PT DENIES ANY FURTHER NEEDS. PT SITTING UP IN BED EATING BREAKFAST. CLWR.
--- NOTE | 2020-07-28 10:23 | NUR ---
PT LYING ON LEFT SIDE, BIPAP IN PLACE, EYES CLOSED AND APPEARS TO BE RESTING COMFORTABLY. CLWR.
[2020-07-28 11:00] VITALS: BP 120/71
--- NOTE | 2020-07-28 13:12 | NUR ---
PT SITTING UP IN BED TALKING ON CELL PHONE TO FAMILY MEMBER. SCHEDULED MED GIVEN, RR EVEN NON LABORED. O2 IN PLACE. NO NEEDS VOICED. CLWR.
--- NOTE | 2020-07-28 13:28 | NUR ---
Nutrition Follow-up: Pt sleeping soundly with bipap at time of visit this AM. Chart reviewed. Good PO intake reported. Glu elevated (293) this AM; Glu 106 yesterday. A1c wnl. Diet: Regular PO intake: 86% avg x 7 meals Wt: 110.2# (07/27) Labs noted: Na 135, Glu 293, A1c 5.1, Alb 3.2, elev LFTs Meds noted: Solumedrol, Carafate, Miralax, Protonix, electrolyte protocol -Monitor Glu; may need to consider carb consistent diet if remains elevated. -Monitor wt. -RD will follow up within 3-4 days it pt still admitted.
--- NOTE | 2020-07-28 15:20 | NUR ---
OT NOTE: PT COMPLETED SIT TO STAND WITH SBA-CGA. PT COMPLETED ADL MOB TO TOILET WITH SBA-CGA. PT COMPLETED TOILET HYGIENE WITH SBA. PT COMPLETED SITTING BALANCE WITH FUNCTIONAL TASKS REQUIRED SBA-CGA. [id number] YNES MIXON COTA
--- NOTE | 2020-07-28 15:28 | NUR ---
reviewed patients chart and patient does not have a diagnosis that would qualify for Outpatient Cardiac Rehab. Patient has an EF 55% in October 2019 so that high of EF will not qualify for the CHF fpr Cardiac Rehab. I think this patient would benefit better from pulmonary rehab which [facility] does not have. Thank you for your referral. Monae Valverde M.Ed., BSEP.
--- NOTE | 2020-07-28 16:21 | MORECARE ---
CASE MANAGEMENT DISCHARGE SUMMARY PATIENT: LANE ONEAL UNIT: [id number] ADM DATE: 07/24/20 AGE: 60 : 62 SEX: F ROOM/BED: D.6912 AUTHOR: MERA,DOC PHYSICIAN: REFERRING PHYSICIAN: BESSY CHOWDARY MD DATE OF SERVICE: 07/28/20 Case Management Discharge Planning Summary COMMENTS ENTERED DATE: 07/28/20 16:10 CT COMMENT TYPE: Discharge Planning REVIEWER: Deena Menendez Received notification that [facility] is not in network with patient's insurance. She does not qualify per Monae Valverde for OP Cardiac Rehab. Patient states she was wanting inpatient rehab here at [facility] and she was just misunderstood. I have notified Teri in rehab to start PA. I also provided the patient with a list of SNF and pamphlets and she is open to going to a skilled facility if her insurance does not authorize Inpatient rehab. CM will continue to follow and assist with discharge planning/needs. ENTERED DATE: 07/27/20 12:07 CT COMMENT TYPE: Discharge Planning REVIEWER: David Zaragoza [facility]. CM met with patient to complete DC plan and to evaluate needs. Patient stated that she is unsure of why she was readmitted. Clinical documentation states that the patient was dyspneic and treated for hypoglycemia. Patient stated that she was able to obtain her medications after last discharge but unfortunately was not able to keep her follow up appointment. Patient stated that she followed the dc instructions given to her and was compliant with her medications. It appears that this readmission was due to an exacerbation of her chronic COPD condition. Patient lives independently with her mother, Nadia Lin, . Patient stated that her home is safe and has electricity and running water. Patient stated that the home has 1 step to enter and she is able to manage the steps without difficulty. Patient stated that she has no problems paying for medications and she fills her medications at [facility]. Patient stated that her primary care physician is Dr. Karimi. CM discussed availability of home health, rehab services, and medical equipment. Patient declined SNF, IPR, and DME. Patient would like HHS services, with [facility] if she qualifies. Patient stated that she only drives to follow up with physicians. Patient stated that she has CHF and COPD. Patient stated she would like to have both Cardiac Rehab and Pulmonary Rehab. Patient further stated that she would like to speak to representatives of the rehabs. CM team informed patient that both cardiac and pulmonary rehab are likely outpatient services. The patient stated that she would like inpatient facilities. LAKESHIA signed for Cardiac Rehab, Respiratory Rehab, and [facility] and placed in chart. CM team to find and present facilities for patient's choice. Patient stated that she has a Nebulizer, a Trilogy machine, and Oxygen concentrator through [facility]. Patient further stated that she has a wheelchair, bedside commode, cane, walker, and walk in shower with built-in shower bench. Patient voiced no other needs at this time and is satisfied with DC plan. DC IMM delivered, explained, signed by the patient, and placed in chart. Signed form also left with the patient. CM will continue to follow and will assist as needed with dc plans/needs. DCP REVIEW SUMMARY ANTICIPATED D/C DATE: EXPECTED LOS : CASE STATUS: DCP Initiated INITIAL REVIEW: 07/23/2020 INITIAL REVIEWER: Wanda Gross FINAL DISCHARGE DISPOSITION: : FINAL REVIEWER: FINAL REVIEW DATE: DCP Focus Questions & Answers DCP Screen QUESTION: ANSWER High Risk Factors: : 3 or more ED visits within the last 60 days DCP Evaluation QUESTION: ANSWER Patient's ability to cope with chronic illness : c. Inadequate (3+ ED visits in 6 mos., readmits within 30 days, 2+ hospital admissions in 1 yr.) Physical Status: : Compromised nutritional status Family / Caregiver's ability to cope with chronic illness: : b. Minimal (occasionally not dependable to meet pt's. needs, can meet pt's. basic ADL's) Living Arrangements: : Home with Parents Baseline cognitive status: : *Oriented to person, place, situation, time and present Medication Management: : Patient states cannot afford medications Pharmacy name(s): : [facility] Would patient like to participate in any Care Coordination programs (if applicable): : Not applicable Does the patient have electricity at home? : Yes Does the patient have running water in their house? : Yes Mental health screen: : No mental health history DCP Re-evaluation QUESTION: ANSWER Patient's current cognitive status: : *Oriented to person, place, situation, time and present Reassessment due to: : New discovery of admission to an acute inpatient facility within 30 days Patient and/or caregiver agree upon recommended discharge plan? : Yes Functional screen assessment: : Basic needs can adequately be met by self Patient gives permission to discuss discharge plans with: (name, relationship and number) : mother, Nadia Lin, Equipment needed for post hospitalization: : None Patient with capacity for self-care or can be cared for in same environment as prior to hospitalization? : Yes Physical environment modification needed / anticipated for discharge: : No Would patient like to participate in any Care Coordination programs (if applicable): : Not applicable PATIENT: LANE ONEAL ENCOUNTER: [id number] MEDICAL RECORD#: [id number] ADMISSION DATE: 07/24/2020 DISCHARGE DATE: ATTENDING MD: BESSY PATTERSON : AGE: 60 MARITAL STATUS: D DC PLAN ID: [id number] FACILITY: [facility] PRINTED ON: 07/28/20 16:20 CT All edits/amendments must be made on the electronic document DICTATION DATE: 07/28/201619 EDUCATION PROFESSOR: TAISHA 07/28/201619 RPT#: [id number] DC DATE: STATUS: ADM IN [facility] [address] [place] [address] END OF REPORT
--- NOTE | 2020-07-28 16:53 | NUR ---
NOTIFICATION RECEIVED THAT PATIENT IS NOW WANTING TO COME TO INPATIENT REHAB. SCREEN WILL BE STARTED IN THE MORINING AND IF SHE MEETS CRITERIA, WILL SEND TO INSURANCE FOR AUTHOURIZATION PREVIOUS SCREEN WAS ENDED SECONDARY TO HER REFUSAL. THANKS AGAIN FOR THE REFERRAL. BETH RENNER RN CLINICAL LIAISON, INPATIENT REHAB.
--- NOTE | 2020-07-28 17:26 | MORECARE ---
CASE MANAGEMENT DISCHARGE SUMMARY PATIENT: LANE ONEAL UNIT: [id number] ADM DATE: 07/24/20 AGE: 60 : 62 SEX: F ROOM/BED: D.0542 AUTHOR: MERA,DOC PHYSICIAN: REFERRING PHYSICIAN: BESSY CHOWDARY MD DATE OF SERVICE: 07/28/20 Case Management Discharge Planning Summary COMMENTS ENTERED DATE: 07/28/20 16:10 CT COMMENT TYPE: Discharge Planning REVIEWER: Deena Menendez Received notification that [facility] is not in network with patient's insurance. She does not qualify per Monae Valverde for OP Cardiac Rehab. Patient states she was wanting inpatient rehab here at [facility] and she was just misunderstood. I have notified Teri in rehab to start PA. I also provided the patient with a list of SNF and pamphlets and she is open to going to a skilled facility if her insurance does not authorize Inpatient rehab. CM will continue to follow and assist with discharge planning/needs. ENTERED DATE: 07/27/20 12:07 CT COMMENT TYPE: Discharge Planning REVIEWER: David Zaragoza [facility]. CM met with patient to complete DC plan and to evaluate needs. Patient stated that she is unsure of why she was readmitted. Clinical documentation states that the patient was dyspneic and treated for hypoglycemia. Patient stated that she was able to obtain her medications after last discharge but unfortunately was not able to keep her follow up appointment. Patient stated that she followed the dc instructions given to her and was compliant with her medications. It appears that this readmission was due to an exacerbation of her chronic COPD condition. Patient lives independently with her mother, Nadia Lin, . Patient stated that her home is safe and has electricity and running water. Patient stated that the home has 1 step to enter and she is able to manage the steps without difficulty. Patient stated that she has no problems paying for medications and she fills her medications at [facility]. Patient stated that her primary care physician is Dr. Karimi. CM discussed availability of home health, rehab services, and medical equipment. Patient declined SNF, IPR, and DME. Patient would like HHS services, with [facility] if she qualifies. Patient stated that she only drives to follow up with physicians. Patient stated that she has CHF and COPD. Patient stated she would like to have both Cardiac Rehab and Pulmonary Rehab. Patient further stated that she would like to speak to representatives of the rehabs. CM team informed patient that both cardiac and pulmonary rehab are likely outpatient services. The patient stated that she would like inpatient facilities. LAKESHIA signed for Cardiac Rehab, Respiratory Rehab, and [facility] and placed in chart. CM team to find and present facilities for patient's choice. Patient stated that she has a Nebulizer, a Trilogy machine, and Oxygen concentrator through [facility]. Patient further stated that she has a wheelchair, bedside commode, cane, walker, and walk in shower with built-in shower bench. Patient voiced no other needs at this time and is satisfied with DC plan. DC IMM delivered, explained, signed by the patient, and placed in chart. Signed form also left with the patient. CM will continue to follow and will assist as needed with dc plans/needs. DCP REVIEW SUMMARY ANTICIPATED D/C DATE: EXPECTED LOS : CASE STATUS: DCP Initiated INITIAL REVIEW: 07/23/2020 INITIAL REVIEWER: Wanda Gross FINAL DISCHARGE DISPOSITION: : FINAL REVIEWER: FINAL REVIEW DATE: DCP Focus Questions & Answers DCP Screen QUESTION: ANSWER High Risk Factors: : 3 or more ED visits within the last 60 days DCP Evaluation QUESTION: ANSWER Patient's ability to cope with chronic illness : c. Inadequate (3+ ED visits in 6 mos., readmits within 30 days, 2+ hospital admissions in 1 yr.) Physical Status: : Compromised nutritional status Family / Caregiver's ability to cope with chronic illness: : b. Minimal (occasionally not dependable to meet pt's. needs, can meet pt's. basic ADL's) Living Arrangements: : Home with Parents Baseline cognitive status: : *Oriented to person, place, situation, time and present Medication Management: : Patient states cannot afford medications Pharmacy name(s): : [facility] Would patient like to participate in any Care Coordination programs (if applicable): : Not applicable Does the patient have electricity at home? : Yes Does the patient have running water in their house? : Yes Mental health screen: : No mental health history DCP Re-evaluation QUESTION: ANSWER Patient's current cognitive status: : *Oriented to person, place, situation, time and present Reassessment due to: : New discovery of admission to an acute inpatient facility within 30 days Patient and/or caregiver agree upon recommended discharge plan? : Yes Functional screen assessment: : Basic needs can adequately be met by self Patient gives permission to discuss discharge plans with: (name, relationship and number) : mother, Nadia Lin, Equipment needed for post hospitalization: : None Patient with capacity for self-care or can be cared for in same environment as prior to hospitalization? : Yes Physical environment modification needed / anticipated for discharge: : No Would patient like to participate in any Care Coordination programs (if applicable): : Not applicable PATIENT: LANE ONEAL ENCOUNTER: [id number] MEDICAL RECORD#: [id number] ADMISSION DATE: 07/24/2020 DISCHARGE DATE: ATTENDING MD: BESSY PATTERSON : AGE: 60 MARITAL STATUS: D DC PLAN ID: [id number] FACILITY: [facility] PRINTED ON: 07/28/20 17:26 CT All edits/amendments must be made on the electronic document DICTATION DATE: 07/28/201725 OUTSOLE CASER: TAISHA 07/28/201725 RPT#: [id number] DC DATE: STATUS: ADM IN [facility] [address] [place] [address] END OF REPORT
--- NOTE | 2020-07-28 20:35 | NUR ---
REPORT RECEIVED. PT A&O, UP IN BED ON PHONE. NO S/S OF DISTRESS OBSERVED. RR EVEN & UNLABORED ON 2L. BED LOCKED AND LOWERED, CL IN REACH. ASSESSMENT COMPLETED AT THIS TIME. WILL CONT POC.
[2020-07-28 21:59] VITALS: BP 150/65
[2020-07-29 01:20] VITALS: BP 114/58
[2020-07-29 05:20] VITALS: BP 109/51
[2020-07-29 05:56] LABS: BASOPHILS 0 % (0-2); EOSINOPHILS 0 % (0-7); HEMOGLOBIN 10.2 g/dL (12-16); IMMATURE GRANULOCYTES 0.6 % (0-5); LYMPHOCYTE ABS# 0.28 10x3/uL (1.18-3.74); LYMPHOCYTES 8.4 % (15-50); MCH 28.3 pg (26.0-34.0); MCHC 29.1 g/dL (31.0-37.0); MCV 97.2 fL (80.0-100.0); MEAN PLATELET VOLUME 10.2 fL (7.4-10.4); MONOCYTES 6.3 % (2-11); NEUTROPHIL ABS# 2.81 10x3/uL (1.56-6.13); NEUTROPHILS 84.7 % (40-80); PLATELET COUNT 231 10x3/uL (130-400); RDW 13.5 % (11.5-14.5); WBC 3.3 10x3/uL (4.8-10.8)
[2020-07-29 06:27] LABS: ALBUMIN 2.5 g/dL (3.4-5.0); ALKALINE PHOSPHATASE 133 U/L (30-120); BILIRUBIN - TOTAL 0.23 mg/dL (0.2-1.3); CALCIUM 8.4 mg/dL (8.5-10.1); CHLORIDE - SERUM 99 mmol/L (98-107); CREATININE - SERUM 0.7 mg/dL (0.6-1.3); PHOSPHOROUS 3.6 mg/dL (2.5-4.9); POTASSIUM - SERUM 5.2 mmol/L (3.5-5.1); PRO BNP 1065 pg/mL (0-125); PROTEIN - SERUM 5.2 g/dL (6.4-8.2); SODIUM 137 mmol/L (136-145); UREA NITROGEN 16 mg/dL (7-18); eGFR NON AFRICAN AMERICAN > 90 mL/min (90-120)
[2020-07-29 06:42] LABS: ALT (SGPT) 90 U/L (10-68); CALC OSMOLALITY 279 mosm/kg (275-300); GLUCOSE 190 mg/dL (74-106)
[2020-07-29 06:46] LABS: CARBON DIOXIDE 42.2 mmol/L (21.0-32.0)
[2020-07-29 08:00] VITALS: BP 134/63
--- NOTE | 2020-07-29 08:19 | NUR ---
AM MEDS GIVEN AT THIS TIME. PT SITTING UP IN BED EATING BREAKFAST AT THIS TIME. NO NEEDS VOICED. CLWR.
--- NOTE | 2020-07-29 09:16 | MORECARE ---
CASE MANAGEMENT DISCHARGE SUMMARY PATIENT: LANE ONEAL UNIT: [id number] ADM DATE: 07/24/20 AGE: 60 : 62 SEX: F ROOM/BED: D.5912 AUTHOR: MERA,DOC PHYSICIAN: REFERRING PHYSICIAN: BESSY CHOWDARY MD DATE OF SERVICE: 07/29/20 Case Management Discharge Planning Summary COMMENTS ENTERED DATE: 07/28/20 16:10 CT COMMENT TYPE: Discharge Planning REVIEWER: Deena Menendez Received notification that [facility] is not in network with patient's insurance. She does not qualify per Monae Valverde for OP Cardiac Rehab. Patient states she was wanting inpatient rehab here at [facility] and she was just misunderstood. I have notified Teri in rehab to start PA. I also provided the patient with a list of SNF and pamphlets and she is open to going to a skilled facility if her insurance does not authorize Inpatient rehab. CM will continue to follow and assist with discharge planning/needs. ENTERED DATE: 07/27/20 12:07 CT COMMENT TYPE: Discharge Planning REVIEWER: David Zaragoza [facility]. CM met with patient to complete DC plan and to evaluate needs. Patient stated that she is unsure of why she was readmitted. Clinical documentation states that the patient was dyspneic and treated for hypoglycemia. Patient stated that she was able to obtain her medications after last discharge but unfortunately was not able to keep her follow up appointment. Patient stated that she followed the dc instructions given to her and was compliant with her medications. It appears that this readmission was due to an exacerbation of her chronic COPD condition. Patient lives independently with her mother, Nadia Lin, . Patient stated that her home is safe and has electricity and running water. Patient stated that the home has 1 step to enter and she is able to manage the steps without difficulty. Patient stated that she has no problems paying for medications and she fills her medications at [facility]. Patient stated that her primary care physician is Dr. Karimi. CM discussed availability of home health, rehab services, and medical equipment. Patient declined SNF, IPR, and DME. Patient would like HHS services, with [facility] if she qualifies. Patient stated that she only drives to follow up with physicians. Patient stated that she has CHF and COPD. Patient stated she would like to have both Cardiac Rehab and Pulmonary Rehab. Patient further stated that she would like to speak to representatives of the rehabs. CM team informed patient that both cardiac and pulmonary rehab are likely outpatient services. The patient stated that she would like inpatient facilities. LAKESHIA signed for Cardiac Rehab, Respiratory Rehab, and [facility] and placed in chart. CM team to find and present facilities for patient's choice. Patient stated that she has a Nebulizer, a Trilogy machine, and Oxygen concentrator through [facility]. Patient further stated that she has a wheelchair, bedside commode, cane, walker, and walk in shower with built-in shower bench. Patient voiced no other needs at this time and is satisfied with DC plan. DC IMM delivered, explained, signed by the patient, and placed in chart. Signed form also left with the patient. CM will continue to follow and will assist as needed with dc plans/needs. DCP REVIEW SUMMARY ANTICIPATED D/C DATE: EXPECTED LOS : CASE STATUS: DCP Initiated INITIAL REVIEW: 07/23/2020 INITIAL REVIEWER: Wanda Gross FINAL DISCHARGE DISPOSITION: : FINAL REVIEWER: FINAL REVIEW DATE: DCP Focus Questions & Answers DCP Screen QUESTION: ANSWER High Risk Factors: : 3 or more ED visits within the last 60 days DCP Evaluation QUESTION: ANSWER Patient's ability to cope with chronic illness : c. Inadequate (3+ ED visits in 6 mos., readmits within 30 days, 2+ hospital admissions in 1 yr.) Physical Status: : Compromised nutritional status Family / Caregiver's ability to cope with chronic illness: : b. Minimal (occasionally not dependable to meet pt's. needs, can meet pt's. basic ADL's) Living Arrangements: : Home with Parents Baseline cognitive status: : *Oriented to person, place, situation, time and present Medication Management: : Patient states cannot afford medications Pharmacy name(s): : [facility] Would patient like to participate in any Care Coordination programs (if applicable): : Not applicable Does the patient have electricity at home? : Yes Does the patient have running water in their house? : Yes Mental health screen: : No mental health history DCP Re-evaluation QUESTION: ANSWER Reassessment due to: : New discovery of admission to an acute inpatient facility within 30 days Patient and/or caregiver agree upon recommended discharge plan? : Yes Patient's current cognitive status: : *Oriented to person, place, situation, time and present Patient gives permission to discuss discharge plans with: (name, relationship and number) : mother, Nadia Lin, Functional screen assessment: : Basic needs can adequately be met by self Equipment needed for post hospitalization: : None Patient with capacity for self-care or can be cared for in same environment as prior to hospitalization? : Yes Physical environment modification needed / anticipated for discharge: : No Would patient like to participate in any Care Coordination programs (if applicable): : Not applicable PATIENT: LANE ONEAL ENCOUNTER: [id number] MEDICAL RECORD#: [id number] ADMISSION DATE: 07/24/2020 DISCHARGE DATE: ATTENDING MD: BESSY PATTERSON : AGE: 60 MARITAL STATUS: D DC PLAN ID: [id number] FACILITY: [facility] PRINTED ON: 07/29/20 9:16 CT All edits/amendments must be made on the electronic document DICTATION DATE: 07/29/20915 FISH HATCHERY WORKER: TAISHA 07/29/20915 RPT#: [id number] DC DATE: STATUS: ADM IN [facility] [address] [place] [address] END OF REPORT
[2020-07-29 11:00] VITALS: BP 126/57
--- NOTE | 2020-07-29 15:02 | NUR ---
OT NOTE: PT COMPLETED SUPINE TO SIT WITH SPV. PT COMPLETED EOB SITTING WITH SPV. PT COMPLETED ADL MOB WITH CGA. PT COMPLETED BÁRBARA SHOES WITH SPV. PT COMPLETED FACE AND HAND HYGIENE WITH SETUP. PT COMPLETED TOILETING WITH SBA. [phone] THANK YOU,MAGO BURT
[2020-07-29 16:31] VITALS: BP 127/61
--- NOTE | 2020-07-29 19:59 | NUR ---
REPORT RECEIVED. PT A&O, UP ON SIDE OF BED. NO S/S OF DISTRESS OBSERVED. RR EVEN & UNLABORED ON 3L. BED LOCKED AND LOWERED, CL IN REACH. ASSESSMENT COMPLETE. WILL CONT POC.
[2020-07-29 21:00] VITALS: BP 125/69
[2020-07-30] VITALS (7 sets, daily range): BP systolic 124–146; BP diastolic 60–91; Ht 157.5 cm; Wt 50.1 kg
[2020-07-30 06:11] LABS: BASOPHILS 0 % (0-2); EOSINOPHILS 0 % (0-7); HEMOGLOBIN 10.6 g/dL (12-16); IMMATURE GRANULOCYTES 0.7 % (0-5); LYMPHOCYTES 5.5 % (15-50); MCH 28.5 pg (26.0-34.0); MCHC 29.4 g/dL (31.0-37.0); MCV 96.8 fL (80.0-100.0); NEUTROPHIL ABS# 4.48 10x3/uL (1.56-6.13); NEUTROPHILS 81.8 % (40-80); RBC 3.72 10x6/uL (4.00-5.40); RDW 13.5 % (11.5-14.5)
[2020-07-30 06:36] LABS: PLATELET COUNT 316 10x3/uL (130-400); WBC 5.5 10x3/uL (4.8-10.8)
[2020-07-30 06:38] LABS: ALBUMIN 2.9 g/dL (3.4-5.0); ALKALINE PHOSPHATASE 117 U/L (30-120); ALT (SGPT) 69 U/L (10-68); BILIRUBIN - TOTAL 0.18 mg/dL (0.2-1.3); CALCIUM 8.8 mg/dL (8.5-10.1); CARBON DIOXIDE 38.4 mmol/L (21.0-32.0); CHLORIDE - SERUM 97 mmol/L (98-107); CREATININE - SERUM 0.7 mg/dL (0.6-1.3); MAGNESIUM - SERUM 2.1 mg/dL (1.8-2.4); PHOSPHOROUS 3.6 mg/dL (2.5-4.9); POTASSIUM - SERUM 4.8 mmol/L (3.5-5.1); PROTEIN - SERUM 5.5 g/dL (6.4-8.2); SODIUM 135 mmol/L (136-145); UREA NITROGEN 18 mg/dL (7-18); eGFR NON AFRICAN AMERICAN > 90 mL/min (90-120)
[2020-07-30 06:41] LABS: CALC OSMOLALITY 281 mosm/kg (275-300); GLUCOSE 270 mg/dL (74-106)
--- NOTE | 2020-07-30 08:50 | NUR ---
AM MEDS GIVEN AT THIS TIME, PT SITTING UP IN BED , RR EVEN NON LABORED, O2 INPLACE. NO NEEDS VOICED. CLWR.
--- NOTE | 2020-07-30 15:50 | NUR ---
OT NOTE: PT COMPLETED ADL MOB WITH SBA-CGA. PT COMPLETED BÁRBARA SHOES WITH SPV. PT COMPLETED TOILETING WITH SBA. PT IS EASILY FATIGUED. [phone] YNES MIXON COTA
--- NOTE | 2020-07-30 20:15 | NUR ---
REPORT RECEIVED. PT A&O, UP ON BEDSIDE. NO S/S OF DISTRESS OBSERVED. RR EVEN & UNLABORED ON 2L. PT REPORTS THAT IV IS INFILTRATED. REMOVED R HAND IV WITH CATHETER INTACT. IV RESITED TO SAME HAND. BED LOCKED AND LOWERED. CL IN REACH. WILL CONT POC.
--- NOTE | 2020-07-31 03:48 | NUR ---
REPORT RECEIVED. A&O, UP IN BED WATCHING TV. NO S/S OF DISTRESS OBSERVED. RR EVEN & UNLABORED ON 2L. BED LOCKED AND LOWERED, CL IN REACH. ASSESSMENT COMPLETE. WILL CONT POC.
[2020-07-31 05:09] VITALS: BP 120/51
[2020-07-31 07:06] LABS: BASOPHILS 0 % (0-2); EOSINOPHILS 0 % (0-7); HEMATOCRIT 35.5 % (36.0-48.0); HEMOGLOBIN 10.6 g/dL (12-16); IMMATURE GRANULOCYTES 0.7 % (0-5); LYMPHOCYTE ABS# 0.38 10x3/uL (1.18-3.74); MCH 28.6 pg (26.0-34.0); MCHC 29.9 g/dL (31.0-37.0); MCV 95.9 fL (80.0-100.0); MEAN PLATELET VOLUME 9.6 fL (7.4-10.4); MONOCYTES 7.5 % (2-11); NEUTROPHIL ABS# 3.51 10x3/uL (1.56-6.13); NEUTROPHILS 82.8 % (40-80); PLATELET COUNT 325 10x3/uL (130-400); RDW 13.5 % (11.5-14.5); WBC 4.2 10x3/uL (4.8-10.8)
[2020-07-31 08:00] VITALS: BP 139/76
[2020-07-31 08:00] LABS: ALBUMIN 2.4 g/dL (3.4-5.0); ALKALINE PHOSPHATASE 105 U/L (30-120); ALT (SGPT) 79 U/L (10-68); BILIRUBIN - TOTAL 0.16 mg/dL (0.2-1.3); CALC OSMOLALITY 284 mosm/kg (275-300); CALCIUM 8.3 mg/dL (8.5-10.1); CARBON DIOXIDE 39.9 mmol/L (21.0-32.0); CHLORIDE - SERUM 96 mmol/L (98-107); CREATININE - SERUM 0.7 mg/dL (0.6-1.3); GLUCOSE 281 mg/dL (74-106); MAGNESIUM - SERUM 2.1 mg/dL (1.8-2.4); PHOSPHOROUS 4.2 mg/dL (2.5-4.9); POTASSIUM - SERUM 4.8 mmol/L (3.5-5.1); PROTEIN - SERUM 4.8 g/dL (6.4-8.2); SODIUM 136 mmol/L (136-145); UREA NITROGEN 20 mg/dL (7-18); eGFR NON AFRICAN AMERICAN > 90 mL/min (90-120)
--- NOTE | 2020-07-31 12:05 | NUR ---
Nutrition Reassessment/Follow-up: Eating well. C/o some nausea without vomiting. C/o thrush. Glu elevated; 281 this AM. Awaiting placement. Diet: Regular No new wt; last wt: 110.2# (07/27) Last BM: 07/31 Labs noted: Glu 281, Ca 8.3, Alb 2.4 Meds noted: Solumedrol, Lasix, Carafate, Miralax, Zofran, Protonix, Diflucan, electrolyte protocol -Nutrition needs unchanged since initial assessment. -Change to carb consistent diet 2/2 consistently elevated Glu. -Need new wt. -RD will follow up within 5-7 days if pt still admitted.
--- NOTE | 2020-07-31 12:41 | NUR ---
SPOKE WITH MILADIS AT [facility]. CLINICALS FAXED FOR AUTHORIZATION REMAIN IN QUE PENDING REVIEW. PETTY HARDY LPN, CLINICAL LIAISON
[2020-07-31 16:04] VITALS: BP 124/67
--- NOTE | 2020-07-31 16:28 | NUR ---
OT NOTE: PT COMPLETED ADL MOB WITH SBA TO BATHROOM. PT COMPLETED TOILETING TASKS WITH SBA. PT REQUIRED SBA FOR TOILET HYGIENE. PT COMPLETED ADL MOB TO SINK WITH SBA. PT COMPLETED UB HYGIENE TASKS AT SINK LEVEL WITH SBA. [phone] THANK YOU,MAGO BURT
--- NOTE | 2020-07-31 19:00 | NUR ---
REPORT GIVEN BY DEIDRE HAAS
[2020-07-31 20:00] VITALS: BP 127/68
--- NOTE | 2020-07-31 21:30 | NUR ---
ASSESSMENT COMPLETED. PT IS UP SITTING IN HER CHAIR AND IS VERY COMFORTABLE. NO C/O OR NEEDS
--- NOTE | 2020-08-01 00:30 | NUR ---
MEDICATIONS COMPLETED. PT WANTS TO SIT UP IN HER CHAIR FOR A WHILE MORE. NO C/O
--- NOTE | 2020-08-01 01:00 | NUR ---
REQUESTED A SANDWICH. THIS WAS TAKEN TO HER.
--- NOTE | 2020-08-01 03:00 | NUR ---
PT ASKING FOR MILK TO EAT WITH HER CEREAL. THIS WAS TAKEN TO PT ROOM.
[2020-08-01 04:00] VITALS: BP 140/56
[2020-08-01 05:45] LABS: BASOPHILS 0 % (0-2); EOSINOPHILS 0 % (0-7); HEMATOCRIT 36.2 % (36.0-48.0); HEMOGLOBIN 10.8 g/dL (12-16); IMMATURE GRANULOCYTES 1.4 % (0-5); LYMPHOCYTE ABS# 0.23 10x3/uL (1.18-3.74); LYMPHOCYTES 5.3 % (15-50); MCH 28.6 pg (26.0-34.0); MCHC 29.8 g/dL (31.0-37.0); MCV 95.8 fL (80.0-100.0); MEAN PLATELET VOLUME 9.7 fL (7.4-10.4); MONOCYTES 12.2 % (2-11); NEUTROPHIL ABS# 3.52 10x3/uL (1.56-6.13); NEUTROPHILS 81.1 % (40-80); PLATELET COUNT 348 10x3/uL (130-400); RBC 3.78 10x6/uL (4.00-5.40); RDW 13.4 % (11.5-14.5); WBC 4.3 10x3/uL (4.8-10.8)
[2020-08-01 06:12] LABS: ALBUMIN 2.5 g/dL (3.4-5.0); ALKALINE PHOSPHATASE 113 U/L (30-120); BILIRUBIN - TOTAL 0.24 mg/dL (0.2-1.3); CALCIUM 7.8 mg/dL (8.5-10.1); CARBON DIOXIDE 38.9 mmol/L (21.0-32.0); CHLORIDE - SERUM 93 mmol/L (98-107); CREATININE - SERUM 0.8 mg/dL (0.6-1.3); POTASSIUM - SERUM 4.7 mmol/L (3.5-5.1); PROTEIN - SERUM 5.1 g/dL (6.4-8.2); SODIUM 133 mmol/L (136-145); UREA NITROGEN 20 mg/dL (7-18); eGFR NON AFRICAN AMERICAN 78 mL/min (90-120)
[2020-08-01 06:16] LABS: ALT (SGPT) 171 U/L (10-68); CALC OSMOLALITY 284 mosm/kg (275-300); GLUCOSE 380 mg/dL (74-106)
[2020-08-01 08:53] VITALS: BP 133/51
--- NOTE | 2020-08-01 12:13 | NUR ---
0700 ASLEEP EASILY AWAKENS ASESSMENT COMPLETE PATIENT VERY PLEASANT
--- NOTE | 2020-08-01 12:44 | NUR ---
OT NOTE: PT COMPLETED ADL MOB WITH SBA-CGA. PT COMPLETED HYGIENE TASKS AT SINK LEVEL WITH SBA. PT COMPLETED BÁRBARA SHOES WITH SBA. PT COMPLETED EOB SITTING BALANCE WITH FUNCTIONAL TASKS REQUIRED SBA. [phone] YNES MIXON COTA
--- NOTE | 2020-08-01 14:00 | NUR ---
NOTIFIED NANO BISHOP, DIRECTOR MICROBIOLOGY THAT [facility] DENIED AUTHORIZATION FOR ACUTE REHAB. PETTY HARDY LPN, CLINICAL LIAISON
[2020-08-01 14:38] VITALS: BP 123/57
[2020-08-01 20:24] VITALS: BP 134/71
[2020-08-02 01:05] VITALS: BP 132/63
[2020-08-02 05:25] VITALS: BP 124/61
[2020-08-02 06:15] LABS: BASOPHILS 0 % (0-2); EOSINOPHILS 0 % (0-7); HEMATOCRIT 37.2 % (36.0-48.0); HEMOGLOBIN 11.3 g/dL (12-16); IMMATURE GRANULOCYTES 1.5 % (0-5); LYMPHOCYTE ABS# 0.29 10x3/uL (1.18-3.74); LYMPHOCYTES 7.3 % (15-50); MCH 28.6 pg (26.0-34.0); MCHC 30.4 g/dL (31.0-37.0); MCV 94.2 fL (80.0-100.0); MEAN PLATELET VOLUME 9.1 fL (7.4-10.4); MONOCYTES 13.1 % (2-11); NEUTROPHIL ABS# 3.09 10x3/uL (1.56-6.13); NEUTROPHILS 78.1 % (40-80); RBC 3.95 10x6/uL (4.00-5.40); RDW 13.2 % (11.5-14.5)
[2020-08-02 06:34] LABS: PLATELET COUNT 278 10x3/uL (130-400)
[2020-08-02 06:48] LABS: ALBUMIN 2.3 g/dL (3.4-5.0); ALKALINE PHOSPHATASE 99 U/L (30-120); BILIRUBIN - TOTAL 0.22 mg/dL (0.2-1.3); CALCIUM 8.3 mg/dL (8.5-10.1); CARBON DIOXIDE 39.9 mmol/L (21.0-32.0); CHLORIDE - SERUM 96 mmol/L (98-107); CREATININE - SERUM 0.6 mg/dL (0.6-1.3); MAGNESIUM - SERUM 2.1 mg/dL (1.8-2.4); PHOSPHOROUS 4.3 mg/dL (2.5-4.9); PROTEIN - SERUM 4.9 g/dL (6.4-8.2); SODIUM 135 mmol/L (136-145); UREA NITROGEN 21 mg/dL (7-18); eGFR NON AFRICAN AMERICAN > 90 mL/min (90-120)
[2020-08-02 06:49] LABS: ALT (SGPT) 112 U/L (10-68); CALC OSMOLALITY 282 mosm/kg (275-300); GLUCOSE 286 mg/dL (74-106)
--- NOTE | 2020-08-02 07:10 | NUR ---
REC'D N BED WITH EYES CLOSED EASILY TO AROUSED WHEN NAME IS CALLED. RESP EVEN AND UNLABORED WITH NO DISTRESS NOTED. CAN EXPRESS NEEDS AND WANTS. NO C/O NOTED OR VOICED. ASSESSMENT COMPLETED. C/L IN REACH AT BEDSIDE.
[2020-08-02 08:14] VITALS: BP 123/61; BP 138/55
--- NOTE | 2020-08-02 12:05 | NUR ---
I have reviewed this patient and I concur with the Shift Assessment completed by the Licensed Practical Nurse today this shift.
[2020-08-02 12:24] VITALS: BP 102/53
--- NOTE | 2020-08-02 15:54 | NUR ---
CALL WAS PLACED TO DEMAND GENERATION MANAGER ABOUT PT C/O GENERALIZED PAIN. INFORMED DEMAND GENERATION MANAGER THAT PT CURRENTLY HAS ORDERS FOR MORPHINE BID PRN. WILL CONTINUE TO OBSERVE FOR NEEDS. C/L IN REACH AT BEDSIDE.
[2020-08-02 17:26] VITALS: BP 141/56
[2020-08-02 21:03] VITALS: BP 128/65
[2020-08-03 02:12] VITALS: BP 98/57
[2020-08-03 05:22] VITALS: BP 125/62
[2020-08-03 06:20] LABS: BASOPHILS 0.1 % (0-2); EOSINOPHILS 0 % (0-7); HEMATOCRIT 37.8 % (36.0-48.0); HEMOGLOBIN 11.4 g/dL (12-16); IMMATURE GRANULOCYTES 1.5 % (0-5); LYMPHOCYTE ABS# 0.27 10x3/uL (1.18-3.74); LYMPHOCYTES 3.3 % (15-50); MCH 28.8 pg (26.0-34.0); MCHC 30.2 g/dL (31.0-37.0); MCV 95.5 fL (80.0-100.0); MEAN PLATELET VOLUME 9.7 fL (7.4-10.4); NEUTROPHIL ABS# 6.79 10x3/uL (1.56-6.13); NEUTROPHILS 84.1 % (40-80); RBC 3.96 10x6/uL (4.00-5.40); RDW 13.4 % (11.5-14.5)
[2020-08-03 06:23] LABS: PLATELET COUNT 351 10x3/uL (130-400); WBC 8.1 10x3/uL (4.8-10.8)
[2020-08-03 06:55] LABS: ALBUMIN 2.4 g/dL (3.4-5.0); ALKALINE PHOSPHATASE 101 U/L (30-120); BILIRUBIN - TOTAL 0.22 mg/dL (0.2-1.3); CALC OSMOLALITY 280 mosm/kg (275-300); CALCIUM 8.3 mg/dL (8.5-10.1); CARBON DIOXIDE 39.9 mmol/L (21.0-32.0); CHLORIDE - SERUM 93 mmol/L (98-107); GLUCOSE 327 mg/dL (74-106); POTASSIUM - SERUM 4.4 mmol/L (3.5-5.1); SODIUM 132 mmol/L (136-145); UREA NITROGEN 21 mg/dL (7-18)
[2020-08-03 06:56] LABS: ALT (SGPT) 155 U/L (10-68); CREATININE - SERUM 0.8 mg/dL (0.6-1.3); eGFR NON AFRICAN AMERICAN 78 mL/min (90-120)
[2020-08-03 09:09] VITALS: BP 138/63
[2020-08-03 12:17] VITALS: BP 121/73
[2020-08-03 16:33] VITALS: BP 125/61
[2020-08-03 20:56] VITALS: BP 126/67
[2020-08-04 04:13] VITALS: BP 154/49
[2020-08-04 07:21] LABS: BASOPHILS 0.1 % (0-2); EOSINOPHILS 0 % (0-7); HEMATOCRIT 38.2 % (36.0-48.0); HEMOGLOBIN 11.3 g/dL (12-16); IMMATURE GRANULOCYTES 1.6 % (0-5); LYMPHOCYTE ABS# 0.39 10x3/uL (1.18-3.74); LYMPHOCYTES 5.7 % (15-50); MCH 28.4 pg (26.0-34.0); MCHC 29.6 g/dL (31.0-37.0); MEAN PLATELET VOLUME 9.5 fL (7.4-10.4); MONOCYTES 11.2 % (2-11); NEUTROPHIL ABS# 5.58 10x3/uL (1.56-6.13); NEUTROPHILS 81.4 % (40-80); PLATELET COUNT 301 10x3/uL (130-400); RBC 3.98 10x6/uL (4.00-5.40); RDW 13.6 % (11.5-14.5); WBC 6.9 10x3/uL (4.8-10.8)
[2020-08-04 07:38] LABS: ALBUMIN 2.4 g/dL (3.4-5.0); ALKALINE PHOSPHATASE 92 U/L (30-120); ALT (SGPT) 144 U/L (10-68); BILIRUBIN - TOTAL 0.23 mg/dL (0.2-1.3); CALCIUM 8.4 mg/dL (8.5-10.1); CHLORIDE - SERUM 94 mmol/L (98-107); GLUCOSE 282 mg/dL (74-106); POTASSIUM - SERUM 4.7 mmol/L (3.5-5.1); PROTEIN - SERUM 4.7 g/dL (6.4-8.2); SODIUM 133 mmol/L (136-145)
[2020-08-04 08:02] LABS: CALC OSMOLALITY 276 mosm/kg (275-300); CREATININE - SERUM 0.5 mg/dL (0.6-1.3); UREA NITROGEN 15 mg/dL (7-18)
[2020-08-04 08:03] LABS: eGFR NON AFRICAN AMERICAN > 90 mL/min (90-120)
[2020-08-04 08:04] LABS: CARBON DIOXIDE 42.4 mmol/L (21.0-32.0)
[2020-08-04 09:19] VITALS: BP 127/59
[2020-08-04 13:21] VITALS: BP 115/60
--- NOTE | 2020-08-04 15:42 | NUR ---
OT NOTE: PT COMPLETED ADL MOB WITH SBA. PT COMPLETED TOILETING WITH SPV-SBA. PT COMPLETED HAND AND FACE HYGIENE AT SINK LEVEL WITH SPV. PT COMPLETED BÁRBARA/DOFF SHOES WITH SPV. [phone] THANK YOU,MAGO BURT
--- NOTE | 2020-08-04 16:23 | MORECARE ---
CASE MANAGEMENT DISCHARGE SUMMARY PATIENT: LANE ONEAL UNIT: [id number] ADM DATE: 07/24/20 AGE: 60 : 62 SEX: F ROOM/BED: D.2112 AUTHOR: MERA,DOC PHYSICIAN: REFERRING PHYSICIAN: BESSY CHOWDARY MD DATE OF SERVICE: 08/04/20 Case Management Discharge Planning Summary COMMENTS ENTERED DATE: 08/04/20 16:04 CT COMMENT TYPE: Discharge Planning REVIEWER: Luz Maria Cabrales CM met with patient this date to inform patient that her insurance does not cover inpatient rehab and discuss alternative placement to a custodial facility. Patient choice list discussed with patient with 1st choice being [facility] and 2nd [facility] Pt right of choice form signed and placed on patient chart. CM faxed clinical documentation to [facility] ([phone]) and received notification that facility did not have availability. Clinical [facility][phone][facility] for potential placement. Awaiting communication from [facility] pending acceptance. ENTERED DATE: 07/28/20 16:10 CT COMMENT TYPE: Discharge Planning REVIEWER: Deena Menendez Received notification that [facility] is not in network with patient's insurance. She does not qualify per Monae Valverde for OP Cardiac Rehab. Patient states she was wanting inpatient rehab here at [facility] and she was just misunderstood. I have notified Teri in rehab to start PA. I also provided the patient with a list of SNF and pamphlets and she is open to going to a skilled facility if her insurance does not authorize Inpatient rehab. CM will continue to follow and assist with discharge planning/needs. ENTERED DATE: 07/27/20 12:07 CT COMMENT TYPE: Discharge Planning REVIEWER: David Zaragoza [facility]. CM met with patient to complete DC plan and to evaluate needs. Patient stated that she is unsure of why she was readmitted. Clinical documentation states that the patient was dyspneic and treated for hypoglycemia. Patient stated that she was able to obtain her medications after last discharge but unfortunately was not able to keep her follow up appointment. Patient stated that she followed the dc instructions given to her and was compliant with her medications. It appears that this readmission was due to an exacerbation of her chronic COPD condition. Patient lives independently with her mother, Nadia Lin, . Patient stated that her home is safe and has electricity and running water. Patient stated that the home has 1 step to enter and she is able to manage the steps without difficulty. Patient stated that she has no problems paying for medications and she fills her medications at [facility]. Patient stated that her primary care physician is Dr. Karimi. CM discussed availability of home health, rehab services, and medical equipment. Patient declined SNF, IPR, and DME. Patient would like HHS services, with [facility] if she qualifies. Patient stated that she only drives to follow up with physicians. Patient stated that she has CHF and COPD. Patient stated she would like to have both Cardiac Rehab and Pulmonary Rehab. Patient further stated that she would like to speak to representatives of the rehabs. CM team informed patient that both cardiac and pulmonary rehab are likely outpatient services. The patient stated that she would like inpatient facilities. LAKESHIA signed for Cardiac Rehab, Respiratory Rehab, and [facility] and placed in chart. CM team to find and present facilities for patient's choice. Patient stated that she has a Nebulizer, a Trilogy machine, and Oxygen concentrator through [facility]. Patient further stated that she has a wheelchair, bedside commode, cane, walker, and walk in shower with built-in shower bench. Patient voiced no other needs at this time and is satisfied with DC plan. DC IMM delivered, explained, signed by the patient, and placed in chart. Signed form also left with the patient. CM will continue to follow and will assist as needed with dc plans/needs. DCP REVIEW SUMMARY ANTICIPATED D/C DATE: EXPECTED LOS : CASE STATUS: DCP Initiated INITIAL REVIEW: 07/23/2020 INITIAL REVIEWER: Wanda Gross FINAL DISCHARGE DISPOSITION: : FINAL REVIEWER: FINAL REVIEW DATE: DCP Focus Questions & Answers DCP Screen QUESTION: ANSWER High Risk Factors: : 3 or more ED visits within the last 60 days DCP Evaluation QUESTION: ANSWER Patient's ability to cope with chronic illness : c. Inadequate (3+ ED visits in 6 mos., readmits within 30 days, 2+ hospital admissions in 1 yr.) Family / Caregiver's ability to cope with chronic illness: : b. Minimal (occasionally not dependable to meet pt's. needs, can meet pt's. basic ADL's) Physical Status: : Compromised nutritional status Living Arrangements: : Home with Parents Baseline cognitive status: : *Oriented to person, place, situation, time and present Medication Management: : Patient states cannot afford medications Pharmacy name(s): : [facility] Would patient like to participate in any Care Coordination programs (if applicable): : Not applicable Does the patient have electricity at home? : Yes Does the patient have running water in their house? : Yes Mental health screen: : No mental health history DCP Re-evaluation QUESTION: ANSWER Patient and/or caregiver agree upon recommended discharge plan? : Yes Patient's current cognitive status: : *Oriented to person, place, situation, time and present Reassessment due to: : New discovery of admission to an acute inpatient facility within 30 days Functional screen assessment: : Basic needs can adequately be met by self Patient gives permission to discuss discharge plans with: (name, relationship and number) : mother, Nadia Lin, Equipment needed for post hospitalization: : None Patient with capacity for self-care or can be cared for in same environment as prior to hospitalization? : Yes Physical environment modification needed / anticipated for discharge: : No Would patient like to participate in any Care Coordination programs (if applicable): : Not applicable PATIENT: LANE ONEAL ENCOUNTER: [id number] MEDICAL RECORD#: [id number] ADMISSION DATE: 07/24/2020 DISCHARGE DATE: ATTENDING MD: BESSY PATTERSON : AGE: 60 MARITAL STATUS: D DC PLAN ID: [id number] FACILITY: [facility] PRINTED ON: 08/04/20 16:22 CT All edits/amendments must be made on the electronic document DICTATION DATE: 08/04/201621 ARB[place] END MAINSPRING FORMER: TAISHA 08/04/201621 RPT#: [id number] DC DATE: STATUS: ADM IN [facility] [address] [place] [address] END OF REPORT
--- NOTE | 2020-08-04 19:40 | NUR ---
REPORT RECEIVED. PT A&O, UP IN BED WATCHING TV. NO S/S OF DISTRESS OBSERVED. RR EVEN & UNLABORED ON 4L. IV TO R HAND PATENT. BED LOCKED AND LOWERED, CL IN REACH. ASSESSMENT COMPLETE. WILL CONT POC.
[2020-08-04 20:00] VITALS: BP 131/66
[2020-08-05] VITALS: BP 138/68
[2020-08-05 04:00] VITALS: BP 106/52
[2020-08-05 06:27] LABS: BASOPHILS 0 % (0-2); EOSINOPHILS 0 % (0-7); HEMATOCRIT 40.4 % (36.0-48.0); IMMATURE GRANULOCYTES 1.7 % (0-5); LYMPHOCYTE ABS# 0.42 10x3/uL (1.18-3.74); LYMPHOCYTES 5.3 % (15-50); MCH 28.8 pg (26.0-34.0); MCHC 29.7 g/dL (31.0-37.0); MCV 97.1 fL (80.0-100.0); MEAN PLATELET VOLUME 9.4 fL (7.4-10.4); MONOCYTES 7.9 % (2-11); NEUTROPHILS 85.1 % (40-80); RBC 4.16 10x6/uL (4.00-5.40); RDW 13.6 % (11.5-14.5); WBC 7.9 10x3/uL (4.8-10.8)
[2020-08-05 06:28] LABS: PLATELET COUNT 229 10x3/uL (130-400)
[2020-08-05 06:51] LABS: ALBUMIN 2.7 g/dL (3.4-5.0); ALKALINE PHOSPHATASE 103 U/L (30-120); ALT (SGPT) 135 U/L (10-68); BILIRUBIN - TOTAL 0.32 mg/dL (0.2-1.3); CALC OSMOLALITY 282 mosm/kg (275-300); CALCIUM 8.4 mg/dL (8.5-10.1); CHLORIDE - SERUM 95 mmol/L (98-107); CREATININE - SERUM 0.7 mg/dL (0.6-1.3); GLUCOSE 255 mg/dL (74-106); MAGNESIUM - SERUM 2.4 mg/dL (1.8-2.4); POTASSIUM - SERUM 5.3 mmol/L (3.5-5.1); PROTEIN - SERUM 5.3 g/dL (6.4-8.2); SODIUM 136 mmol/L (136-145); UREA NITROGEN 18 mg/dL (7-18); eGFR NON AFRICAN AMERICAN > 90 mL/min (90-120)
[2020-08-05 06:56] LABS: CARBON DIOXIDE 40.7 mmol/L (21.0-32.0)
--- NOTE | 2020-08-05 06:57 | NUR ---
Took call from [employer] conservation laborer Bethanymanniemihir who stated CO2 is 40.7, trending down, will await further orders.
--- NOTE | 2020-08-05 07:20 | NUR ---
Sitting up in bed, awake/alert/oriented, T/R self ad devon, cont of B/B with BRPs per self ad devon, c/o stabbing back/hip/shoulder pain rated 9/10, medicated as ordered (see MAR), call light/phone/water within reach, no s/s of acute distress observed.
[2020-08-05 08:38] VITALS: BP 109/54
[2020-08-05 12:00] VITALS: BP 106/58
--- NOTE | 2020-08-05 12:19 | NUR ---
Nutrition Reassessment/Follow-up: Eating well. Glu remains elevated (>200). K+ elevated. Awaiting placement. Diet: Diabetic PO intake: 100% x 3 (08/04) No new wt; last wt: 110.2# (07/27) Labs noted: K+ 5.3, Glu 255, Ca 8.4, Alb 2.7 Meds noted: Lasix, Prednisone, Humulin, Carafate, Protonix, Zofran, electrolyte protocol -Nutrition needs unchanged; no new wt available. -Monitor labs (Glu, K+). -Need new wt; last wt >1 wk ago. -RD will follow up within 7 days if pt still admitted.
[2020-08-05 14:52] LABS: SARS-CoV-2 ANTIGEN NEGATIVE- SARS-COV-2 (NEGATIVE)
--- NOTE | 2020-08-05 15:37 | MORECARE ---
CASE MANAGEMENT DISCHARGE SUMMARY PATIENT: LANE ONEAL UNIT: [id number] ADM DATE: 07/24/20 AGE: 60 : 62 SEX: F ROOM/BED: D.2112 AUTHOR: MERA,DOC PHYSICIAN: REFERRING PHYSICIAN: BESSY CHOWDARY MD DATE OF SERVICE: 08/05/20 Case Management Discharge Planning Summary COMMENTS ENTERED DATE: 08/05/20 15:35 CT COMMENT TYPE: Discharge Planning REVIEWER: Deena Shon [facility] to check on status of referral. She states they will not have a bed until . States she will need a AGUILAR and also a covid test. I have ordered Covid test and completed AGUILAR faxed to [facility]. CM will continue to follow and assist with discharge planning/needs. ENTERED DATE: 08/04/20 16:04 CT COMMENT TYPE: Discharge Planning REVIEWER: Luz Maria Cabrales CM met with patient this date to inform patient that her insurance does not cover inpatient rehab and discuss alternative placement to a penitentiary facility. Patient choice list discussed with patient with 1st choice being [facility] and [facility]. Pt right of choice form signed and placed on patient chart. CM faxed clinical documentation to [facility] ([phone]) and received notification that facility did not have availability. Clinical documentation faxed to [facility] ([phone]) for potential placement. Awaiting communication from [facility] pending acceptance. ENTERED DATE: 07/28/20 16:10 CT COMMENT TYPE: Discharge Planning REVIEWER: Deena Menendez Received notification that [facility] is not in network with patient's insurance. She does not qualify per Monae Valverde for OP Cardiac Rehab. Patient states she was wanting inpatient rehab here at [facility] and she was just misunderstood. I have notified Teri in rehab to start PA. I also provided the patient with a list of SNF and pamphlets and she is open to going to a skilled facility if her insurance does not authorize Inpatient rehab. CM will continue to follow and assist with discharge planning/needs. ENTERED DATE: 07/27/20 12:07 CT COMMENT TYPE: Discharge Planning REVIEWER: David Zaragoza [facility]. CM met with patient to complete DC plan and to evaluate needs. Patient stated that she is unsure of why she was readmitted. Clinical documentation states that the patient was dyspneic and treated for hypoglycemia. Patient stated that she was able to obtain her medications after last discharge but unfortunately was not able to keep her follow up appointment. Patient stated that she followed the dc instructions given to her and was compliant with her medications. It appears that this readmission was due to an exacerbation of her chronic COPD condition. Patient lives independently with her mother, Nadia Lin, . Patient stated that her home is safe and has electricity and running water. Patient stated that the home has 1 step to enter and she is able to manage the steps without difficulty. Patient stated that she has no problems paying for medications and she fills her medications at [facility]. Patient stated that her primary care physician is Dr. Karimi. CM discussed availability of home health, rehab services, and medical equipment. Patient declined SNF, IPR, and DME. Patient would like HHS services, with [facility] if she qualifies. Patient stated that she only drives to follow up with physicians. Patient stated that she has CHF and COPD. Patient stated she would like to have both Cardiac Rehab and Pulmonary Rehab. Patient further stated that she would like to speak to representatives of the rehabs. CM team informed patient that both cardiac and pulmonary rehab are likely outpatient services. The patient stated that she would like inpatient facilities. LAKESHIA signed for Cardiac Rehab, Respiratory Rehab, and [facility] and placed in chart. CM team to find and present facilities for patient's choice. Patient stated that she has a Nebulizer, a Trilogy machine, and Oxygen concentrator through [facility]. Patient further stated that she has a wheelchair, bedside commode, cane, walker, and walk in shower with built-in shower bench. Patient voiced no other needs at this time and is satisfied with DC plan. DC IMM delivered, explained, signed by the patient, and placed in chart. Signed form also left with the patient. CM will continue to follow and will assist as needed with dc plans/needs. DCP REVIEW SUMMARY ANTICIPATED D/C DATE: EXPECTED LOS : CASE STATUS: DCP Initiated INITIAL REVIEW: 07/23/2020 INITIAL REVIEWER: Wanda Gross FINAL DISCHARGE DISPOSITION: : FINAL REVIEWER: FINAL REVIEW DATE: DCP Focus Questions & Answers DCP Screen QUESTION: ANSWER High Risk Factors: : 3 or more ED visits within the last 60 days DCP Evaluation QUESTION: ANSWER Patient's ability to cope with chronic illness : c. Inadequate (3+ ED visits in 6 mos., readmits within 30 days, 2+ hospital admissions in 1 yr.) Physical Status: : Compromised nutritional status Family / Caregiver's ability to cope with chronic illness: : b. Minimal (occasionally not dependable to meet pt's. needs, can meet pt's. basic ADL's) Living Arrangements: : Home with Parents Baseline cognitive status: : *Oriented to person, place, situation, time and present Medication Management: : Patient states cannot afford medications Pharmacy name(s): : [facility] Would patient like to participate in any Care Coordination programs (if applicable): : Not applicable Does the patient have electricity at home? : Yes Does the patient have running water in their house? : Yes Mental health screen: : No mental health history DCP Re-evaluation QUESTION: ANSWER Reassessment due to: : New discovery of admission to an acute inpatient facility within 30 days Patient's current cognitive status: : *Oriented to person, place, situation, time and present Patient and/or caregiver agree upon recommended discharge plan? : Yes Patient gives permission to discuss discharge plans with: (name, relationship and number) : motherNadia, Functional screen assessment: : Basic needs can adequately be met by self Equipment needed for post hospitalization: : None Patient with capacity for self-care or can be cared for in same environment as prior to hospitalization? : Yes Physical environment modification needed / anticipated for discharge: : No Would patient like to participate in any Care Coordination programs (if applicable): : Not applicable PATIENT: LANE ONEAL ENCOUNTER: [id number] MEDICAL RECORD#: [id number] ADMISSION DATE: 07/24/2020 DISCHARGE DATE: ATTENDING MD: BESSY PATTERSON : AGE: 60 MARITAL STATUS: D DC PLAN ID: [id number] FACILITY: [facility] PRINTED ON: 08/05/20 15:37 CT All edits/amendments must be made on the electronic document DICTATION DATE: 08/05/201536 DERMATOLOGY PHYSICIAN: TAISHA 08/05/201536 RPT#: [id number] DC DATE: STATUS: ADM IN [facility] [address] [place] [address] END OF REPORT
[2020-08-05 16:27] VITALS: BP 107/60
[2020-08-05 20:00] VITALS: BP 128/78
--- NOTE | 2020-08-05 22:41 | NUR ---
REPORT RECEIVED, PT A&O, UP IN BED WATCHING TV. NO S/S OF DISTRESS OBSERVED. RR EVEN AND UNLABORED ON 4L. IV TO R HAND PATENT, SL, AND CLAMPED. MORPHINE GIVEN WITH HS MEDS FOR PAIN 12/12. BED LOCKED AND LOWERED, CL IN REACH. ASSESSMENT COMPLETE. WILL CONT POC.
[2020-08-06] VITALS: BP 141/69
[2020-08-06 04:00] VITALS: BP 119/57
[2020-08-06 06:14] LABS: BASOPHILS 0 % (0-2); EOSINOPHILS 0 % (0-7); HEMATOCRIT 36.2 % (36.0-48.0); HEMOGLOBIN 10.6 g/dL (12-16); IMMATURE GRANULOCYTES 1.7 % (0-5); LYMPHOCYTE ABS# 0.48 10x3/uL (1.18-3.74); LYMPHOCYTES 7.2 % (15-50); MCH 28.7 pg (26.0-34.0); MCHC 29.3 g/dL (31.0-37.0); MCV 98.1 fL (80.0-100.0); MEAN PLATELET VOLUME 9.8 fL (7.4-10.4); MONOCYTES 7.1 % (2-11); PLATELET COUNT 222 10x3/uL (130-400); RBC 3.69 10x6/uL (4.00-5.40); RDW 13.6 % (11.5-14.5); WBC 6.7 10x3/uL (4.8-10.8)
[2020-08-06 06:41] LABS: ALBUMIN 2.3 g/dL (3.4-5.0); ALKALINE PHOSPHATASE 78 U/L (30-120); ALT (SGPT) 106 U/L (10-68); BILIRUBIN - TOTAL 0.24 mg/dL (0.2-1.3); CALCIUM 8.1 mg/dL (8.5-10.1); CHLORIDE - SERUM 96 mmol/L (98-107); CREATININE - SERUM 0.6 mg/dL (0.6-1.3); MAGNESIUM - SERUM 2.3 mg/dL (1.8-2.4); POTASSIUM - SERUM 4.8 mmol/L (3.5-5.1); PROTEIN - SERUM 4.8 g/dL (6.4-8.2); SODIUM 136 mmol/L (136-145); UREA NITROGEN 14 mg/dL (7-18); eGFR NON AFRICAN AMERICAN > 90 mL/min (90-120)
[2020-08-06 06:43] LABS: CALC OSMOLALITY 278 mosm/kg (275-300); GLUCOSE 207 mg/dL (74-106)
[2020-08-06 06:46] LABS: CARBON DIOXIDE 43.2 mmol/L (21.0-32.0)
--- NOTE | 2020-08-06 07:27 | NUR ---
PTS IV TO R HAND INFILTRATED. REMOVED, CATHETER INTACT. RESITED TO LEFT HAND 22G.
[2020-08-06 08:01] VITALS: BP 128/68
--- NOTE | 2020-08-06 10:14 | NUR ---
I have reviewed this patient and I concur with the Shift Assessment completed by the Licensed Practical Nurse today this shift.
--- NOTE | 2020-08-06 11:44 | MORECARE ---
CASE MANAGEMENT DISCHARGE SUMMARY PATIENT: LANE ONEAL UNIT: [id number] ADM DATE: 07/24/20 AGE: 60 : 62 SEX: F ROOM/BED: D.2112 AUTHOR: MERA,DOC PHYSICIAN: REFERRING PHYSICIAN: BESSY CHOWDARY MD DATE OF SERVICE: 08/06/20 Case Management Discharge Planning Summary COMMENTS ENTERED DATE: 08/06/20 11:35 CT COMMENT TYPE: Discharge Planning REVIEWER: Deena Menendez Updated clinical with NONPASSR patient and negative Covid result faxed to [facility]. ENTERED DATE: 08/05/20 15:35 CT COMMENT TYPE: Discharge Planning REVIEWER: Deena Menendez I spoke with Ramona from [facility] to check on status of referral. She states they will not have a bed until . States she will need a AGUILAR and also a covid test. I have ordered Covid test and completed AGUILAR faxed to [facility]. CM will continue to follow and assist with discharge planning/needs. ENTERED DATE: 08/04/20 16:04 CT COMMENT TYPE: Discharge Planning REVIEWER: Luz Maria Cabrales CM met with patient this date to inform patient that her insurance does not cover inpatient rehab and discuss alternative placement to a long term facility. Patient choice list discussed with patient with 1st choice being [facility] and [facility]. Pt right of choice form signed and placed on patient chart. CM faxed clinical documentation to [facility] ([phone]) and received notification that facility did not have availability. Clinical documentation faxed to second choice [facility] ([phone]) for potential placement. Awaiting communication from [facility] pending acceptance. ENTERED DATE: 07/28/20 16:10 CT COMMENT TYPE: Discharge Planning REVIEWER: Deena Menendez Received notification that [facility] is not in network with patient's insurance. She does not qualify per Monae Valverde for OP Cardiac Rehab. Patient states she was wanting inpatient rehab here at [facility] and she was just misunderstood. I have notified Teri in rehab to start PA. I also provided the patient with a list of SNF and pamphlets and she is open to going to a skilled facility if her insurance does not authorize Inpatient rehab. CM will continue to follow and assist with discharge planning/needs. ENTERED DATE: 07/27/20 12:07 CT COMMENT TYPE: Discharge Planning REVIEWER: David Zaragoza [facility]. CM met with patient to complete DC plan and to evaluate needs. Patient stated that she is unsure of why she was readmitted. Clinical documentation states that the patient was dyspneic and treated for hypoglycemia. Patient stated that she was able to obtain her medications after last discharge but unfortunately was not able to keep her follow up appointment. Patient stated that she followed the dc instructions given to her and was compliant with her medications. It appears that this readmission was due to an exacerbation of her chronic COPD condition. Patient lives independently with her mother, Nadia Lin, . Patient stated that her home is safe and has electricity and running water. Patient stated that the home has 1 step to enter and she is able to manage the steps without difficulty. Patient stated that she has no problems paying for medications and she fills her medications at [facility]. Patient stated that her primary care physician is Dr. Karimi. CM discussed availability of home health, rehab services, and medical equipment. Patient declined SNF, IPR, and DME. Patient would like HHS services, with [facility] if she qualifies. Patient stated that she only drives to follow up with physicians. Patient stated that she has CHF and COPD. Patient stated she would like to have both Cardiac Rehab and Pulmonary Rehab. Patient further stated that she would like to speak to representatives of the rehabs. CM team informed patient that both cardiac and pulmonary rehab are likely outpatient services. The patient stated that she would like inpatient facilities. LAKESHIA signed for Cardiac Rehab, Respiratory Rehab, and [facility] and placed in chart. CM team to find and present facilities for patient's choice. Patient stated that she has a Nebulizer, a Trilogy machine, and Oxygen concentrator through [facility]. Patient further stated that she has a wheelchair, bedside commode, cane, walker, and walk in shower with built-in shower bench. Patient voiced no other needs at this time and is satisfied with DC plan. DC IMM delivered, explained, signed by the patient, and placed in chart. Signed form also left with the patient. CM will continue to follow and will assist as needed with dc plans/needs. DCP REVIEW SUMMARY ANTICIPATED D/C DATE: EXPECTED LOS : CASE STATUS: DCP Initiated INITIAL REVIEW: 07/23/2020 INITIAL REVIEWER: Wanda Gross FINAL DISCHARGE DISPOSITION: : FINAL REVIEWER: FINAL REVIEW DATE: DCP Focus Questions & Answers DCP Screen QUESTION: ANSWER High Risk Factors: : 3 or more ED visits within the last 60 days DCP Evaluation QUESTION: ANSWER Patient's ability to cope with chronic illness : c. Inadequate (3+ ED visits in 6 mos., readmits within 30 days, 2+ hospital admissions in 1 yr.) Family / Caregiver's ability to cope with chronic illness: : b. Minimal (occasionally not dependable to meet pt's. needs, can meet pt's. basic ADL's) Physical Status: : Compromised nutritional status Living Arrangements: : Home with Parents Baseline cognitive status: : *Oriented to person, place, situation, time and present Medication Management: : Patient states cannot afford medications Pharmacy name(s): : [facility] Would patient like to participate in any Care Coordination programs (if applicable): : Not applicable Does the patient have electricity at home? : Yes Does the patient have running water in their house? : Yes Mental health screen: : No mental health history DCP Re-evaluation QUESTION: ANSWER Patient and/or caregiver agree upon recommended discharge plan? : Yes Patient's current cognitive status: : *Oriented to person, place, situation, time and present Reassessment due to: : New discovery of admission to an acute inpatient facility within 30 days Functional screen assessment: : Basic needs can adequately be met by self Patient gives permission to discuss discharge plans with: (name, relationship and number) : mother, Nadia Lin, Equipment needed for post hospitalization: : None Patient with capacity for self-care or can be cared for in same environment as prior to hospitalization? : Yes Physical environment modification needed / anticipated for discharge: : No Would patient like to participate in any Care Coordination programs (if applicable): : Not applicable PATIENT: LANE ONEAL ENCOUNTER: [id number] MEDICAL RECORD#: [id number] ADMISSION DATE: 07/24/2020 DISCHARGE DATE: ATTENDING MD: BESSY PATTERSON : AGE: 60 MARITAL STATUS: D DC PLAN ID: [id number] FACILITY: [facility] PRINTED ON: 08/06/20 11:44 CT All edits/amendments must be made on the electronic document DICTATION DATE: 08/06/20 1144 WELDER OXYHYDROGEN: TAISHA 08/06/20 1144 RPT#: [id number] DC DATE: STATUS: ADM IN [facility] [address] [place] [address] END OF REPORT
[2020-08-06 12:15] VITALS: BP 121/59
[2020-08-06 16:51] VITALS: BP 132/67
--- NOTE | 2020-08-06 19:43 | NUR ---
REPORT RECEIVED, PT A&O, UP IN BED WATCHING TV. NO S/S OF DISTRESS OBSERVED. RR EVEN & UNLABORED ON 4L. IV TO L HAND PATENT AND SL. BED LOCKED AND LOWERED, CL IN REACH. ASSESSMENT COMPLETE. WILL CONT POC.
[2020-08-06 20:11] VITALS: BP 134/78
--- NOTE | 2020-08-06 21:30 | NUR ---
PTS IV INFLITRATED. REMOVED, CATHETER INTACT. IV RESITED TO R HAND 22G.
[2020-08-07] VITALS (7 sets, daily range): BP systolic 98–138; BP diastolic 55–581
[2020-08-07 08:07] LABS: BASOPHILS 0.1 % (0-2); EOSINOPHILS 0.4 % (0-7); HEMATOCRIT 37.9 % (36.0-48.0); HEMOGLOBIN 11.2 g/dL (12-16); IMMATURE GRANULOCYTES 0.7 % (0-5); LYMPHOCYTE ABS# 1.28 10x3/uL (1.18-3.74); LYMPHOCYTES 7.9 % (15-50); MCHC 29.6 g/dL (31.0-37.0); MCV 98.2 fL (80.0-100.0); MEAN PLATELET VOLUME 9.1 fL (7.4-10.4); MONOCYTES 10.2 % (2-11); NEUTROPHIL ABS# 13.09 10x3/uL (1.56-6.13); NEUTROPHILS 80.7 % (40-80); RBC 3.86 10x6/uL (4.00-5.40); RDW 13.9 % (11.5-14.5)
[2020-08-07 08:12] LABS: PLATELET COUNT 157 10x3/uL (130-400); WBC 16.2 10x3/uL (4.8-10.8)
[2020-08-07 08:25] LABS: ALBUMIN 2.5 g/dL (3.4-5.0); ALKALINE PHOSPHATASE 89 U/L (30-120); BILIRUBIN - TOTAL 0.47 mg/dL (0.2-1.3); CALC OSMOLALITY 283 mosm/kg (275-300); CALCIUM 8.1 mg/dL (8.5-10.1); CHLORIDE - SERUM 99 mmol/L (98-107); CREATININE - SERUM 0.5 mg/dL (0.6-1.3); GLUCOSE 162 mg/dL (74-106); MAGNESIUM - SERUM 2.1 mg/dL (1.8-2.4); POTASSIUM - SERUM 4.7 mmol/L (3.5-5.1); PROTEIN - SERUM 4.7 g/dL (6.4-8.2); SODIUM 140 mmol/L (136-145); UREA NITROGEN 16 mg/dL (7-18); eGFR NON AFRICAN AMERICAN > 90 mL/min (90-120)
[2020-08-07 08:31] LABS: ALT (SGPT) 172 U/L (10-68)
[2020-08-07 08:36] LABS: CARBON DIOXIDE 42.5 mmol/L (21.0-32.0)
--- NOTE | 2020-08-07 16:05 | NUR ---
OT NOTE: PT COMPLETED ADL MOB WITH SBA TO TOILET. PT COMPLETED TOILETING WITH SBA. PT COMPLETED BED MOB WITH SPV. PT COMPLETED EOB SITTING WITH SBA. PT COMPLETED BÁRBARA/DOFF SHOES WITH MOD I. [phone] YNES MIXON COTA
--- NOTE | 2020-08-07 19:48 | NUR ---
REPORT RECEIVED, PT A&O, UP ON SIDE OF BED. NO S/S OF DISTRESS OBSERVED. RR EVEN & UNLABORED ON 2L. IV TO R HAND. BED LOCKED AND LOWERED, CL IN REACH. ASSESSMENT COMPLELTED AT THIS TIME. WILL CONT POC.
--- NOTE | 2020-08-08 01:05 | MORECARE ---
CASE MANAGEMENT DISCHARGE SUMMARY PATIENT: LANE ONEAL UNIT: [id number] ADM DATE: 07/24/20 AGE: 60 : 62 SEX: F ROOM/BED: D.3432 AUTHOR: MERA,DOC PHYSICIAN: REFERRING PHYSICIAN: BESSY CHOWDARY MD DATE OF SERVICE: 08/08/20 Case Management Discharge Planning Summary COMMENTS ENTERED DATE: 08/08/20 0:48 CT COMMENT TYPE: Discharge Planning REVIEWER: Uma Delgado 08/07/20 CM spoke with Ramona at [facility] she stated that they did have a bed available and that they was sending out for Auth today. Requested updated clinicals and to have patient's trilogy brought to hospital to make sure it is available for discharge. Ramona also wanted to know if patient has been vaccinated for Covid. CM spoke with patient and she stated that she has had one of her injections but not the other yet. Patient stated that she would like to get it while she is in the hospital if possible. CM called and left Message with Eneida Farley to see if this is possible. [facility] CM will continue to follow and assist as needed with discharge planning needs. ENTERED DATE: 08/06/20 11:35 CT COMMENT TYPE: Discharge Planning REVIEWER: Deena Menendez Updated clinical with NONPASSR patient and negative Covid result [facility] ENTERED DATE: 08/05/20 15:35 CT COMMENT TYPE: Discharge Planning REVIEWER: Deena Menendez I spoke with Ram[facility] from [facility] to check on status of referral. She states they will not have a bed until . States she will need a AGUILAR and also a covid test. I have ordered Covid test and completed AG[facility]AR faxed to [facility]. CM will continue to follow and assist with discharge planning/needs. ENTERED DATE: 08/04/20 16:04 CT COMMENT TYPE: Discharge Planning REVIEWER: Luz Maria Cabrales CM met with patient this date to inform patient that her insurance does not cover inpatient rehab and discuss alternative placement to a senior care facility. Patient choice list discussed with patient with 1st choice being [facility] and 2nd [facility] Pt right of choice form signed and placed on patient chart. CM faxed clinical documentation to [facility] ([phone]) and received notification that facility did not have availability. [phone][facility] for potential [facility]. Awaiting communication from [facility] pending acceptance. ENTERED DATE: 07/28/20 16:10 CT COMMENT TYPE: Discharge Planning REVIEWER: Deena Menendez Received notification that [facility] is not in network with patient's insurance. She does not qualify per Monae Valverde for OP Cardiac Rehab. Patient states she was wanting inpatient rehab here at [facility] and she was just misunderstood. I have notified Teri in rehab to start PA. I also provided the patient with a list of SNF and pamphlets and she is open to going to a skilled facility if her insurance does not authorize Inpatient rehab. CM will continue to follow and assist with discharge planning/needs. ENTERED DATE: 07/27/20 12:07 CT COMMENT TYPE: Discharge Planning REVIEWER: David Zaragoza [facility]. CM met with patient to complete DC plan and to evaluate needs. Patient stated that she is unsure of why she was readmitted. Clinical documentation states that the patient was dyspneic and treated for hypoglycemia. Patient stated that she was able to obtain her medications after last discharge but unfortunately was not able to keep her follow up appointment. Patient stated that she followed the dc instructions given to her and was compliant with her medications. It appears that this readmission was due to an exacerbation of her chronic COPD condition. Patient lives independently with her mother, Nadia Lin, . Patient stated that her home is safe and has electricity and running water. Patient stated that the home has 1 step to enter and she is able to manage the steps without difficulty. Patient stated that she has no problems paying for medications and she fills her medications at [facility]. Patient stated that her primary care physician is Dr. Karimi. CM discussed availability of home health, rehab services, and medical equipment. Patient declined SNF, IPR, and DME. Patient would like HHS services, with [facility] if she qualifies. Patient stated that she only drives to follow up with physicians. Patient stated that she has CHF and COPD. Patient stated she would like to have both Cardiac Rehab and Pulmonary Rehab. Patient further stated that she would like to speak to representatives of the rehabs. CM team informed patient that both cardiac and pulmonary rehab are likely outpatient services. The patient stated that she would like inpatient facilities. LAKESHIA signed for Cardiac Rehab, Respiratory Rehab, and [facility] and placed in chart. CM team to find and present facilities for patient's choice. Patient stated that she has a Nebulizer, a Trilogy machine, and Oxygen concentrator through [facility]. Patient further stated that she has a wheelchair, bedside commode, cane, walker, and walk in shower with built-in shower bench. Patient voiced no other needs at this time and is satisfied with DC plan. DC IMM delivered, explained, signed by the patient, and placed in chart. Signed form also left with the patient. CM will continue to follow and will assist as needed with dc plans/needs. DCP REVIEW SUMMARY ANTICIPATED D/C DATE: EXPECTED LOS : CASE STATUS: DCP Initiated INITIAL REVIEW: 07/23/2020 INITIAL REVIEWER: Wanda Gross FINAL DISCHARGE DISPOSITION: : FINAL REVIEWER: FINAL REVIEW DATE: DCP Focus Questions & Answers DCP Screen QUESTION: ANSWER High Risk Factors: : 3 or more ED visits within the last 60 days DCP Evaluation QUESTION: ANSWER Patient's ability to cope with chronic illness : c. Inadequate (3+ ED visits in 6 mos., readmits within 30 days, 2+ hospital admissions in 1 yr.) Family / Caregiver's ability to cope with chronic illness: : b. Minimal (occasionally not dependable to meet pt's. needs, can meet pt's. basic ADL's) Physical Status: : Compromised nutritional status Living Arrangements: : Home with Parents Baseline cognitive status: : *Oriented to person, place, situation, time and present Medication Management: : Patient states cannot afford medications Pharmacy name(s): : [facility] Would patient like to participate in any Care Coordination programs (if applicable): : Not applicable Does the patient have electricity at home? : Yes Does the patient have running water in their house? : Yes Mental health screen: : No mental health history DCP Re-evaluation QUESTION: ANSWER Patient and/or caregiver agree upon recommended discharge plan? : Yes Patient's current cognitive status: : *Oriented to person, place, situation, time and present Reassessment due to: : New discovery of admission to an acute inpatient facility within 30 days Functional screen assessment: : Basic needs can adequately be met by self Patient gives permission to discuss discharge plans with: (name, relationship and number) : motherNadia, Equipment needed for post hospitalization: : None Patient with capacity for self-care or can be cared for in same environment as prior to hospitalization? : Yes Physical environment modification needed / anticipated for discharge: : No Would patient like to participate in any Care Coordination programs (if applicable): : Not applicable PATIENT: LANE ONEAL ENCOUNTER: [id number] MEDICAL RECORD#: [id number] ADMISSION DATE: 07/24/2020 DISCHARGE DATE: ATTENDING MD: BESSY PATTERSON : AGE: 60 MARITAL STATUS: D DC PLAN ID: [id number] FACILITY: [facility] PRINTED ON: 08/08/20 1:05 CT All edits/amendments must be made on the electronic document DICTATION DATE: 08/08/20104 SUPERINTENDENT POWER: TAISHA 08/08/20104 RPT#: [id number] DC DATE: STATUS: ADM IN [facility] [address] [place] [address] END OF REPORT
[2020-08-08 05:33] VITALS: BP 112/57
[2020-08-08 06:26] LABS: ALBUMIN 2.3 g/dL (3.4-5.0); ALKALINE PHOSPHATASE 84 U/L (30-120); ALT (SGPT) 134 U/L (10-68); BASOPHILS 0 % (0-2); BILIRUBIN - TOTAL 0.27 mg/dL (0.2-1.3); CALC OSMOLALITY 276 mosm/kg (275-300); CALCIUM 7.8 mg/dL (8.5-10.1); CHLORIDE - SERUM 96 mmol/L (98-107); CREATININE - SERUM 0.5 mg/dL (0.6-1.3); GLUCOSE 131 mg/dL (74-106); HEMATOCRIT 34.1 % (36.0-48.0); HEMOGLOBIN 9.9 g/dL (12-16); IMMATURE GRANULOCYTES 1.1 % (0-5); LYMPHOCYTE ABS# 1.52 10x3/uL (1.18-3.74); LYMPHOCYTES 15.3 % (15-50); MCH 28.7 pg (26.0-34.0); MCV 98.8 fL (80.0-100.0); MEAN PLATELET VOLUME 9.8 fL (7.4-10.4); MONOCYTES 10.6 % (2-11); NEUTROPHIL ABS# 7.17 10x3/uL (1.56-6.13); PLATELET COUNT 171 10x3/uL (130-400); PROTEIN - SERUM 4.9 g/dL (6.4-8.2); RBC 3.45 10x6/uL (4.00-5.40); RDW 14.1 % (11.5-14.5); SODIUM 137 mmol/L (136-145); UREA NITROGEN 14 mg/dL (7-18); eGFR NON AFRICAN AMERICAN > 90 mL/min (90-120)
[2020-08-08 06:40] LABS: POTASSIUM - SERUM 3.7 mmol/L (3.5-5.1)
[2020-08-08 06:41] LABS: CARBON DIOXIDE 43.2 mmol/L (21.0-32.0)
[2020-08-08 07:00] VITALS: BP 103/64
--- NOTE | 2020-08-08 07:37 | NUR ---
BEDSIDE REPORT RECEIVED. PATIENT SITTING UP IN BED, ACTIVE IN REPORT. REFUSES IV MAINTENANCE NS. DOES DRINK PLENTY. CRITICAL LAB CALLED WITH CO2 46. RESP EVEN AND UNLABORED, NO SHORTNESS OF BREATH NOTED. 02 AT 2L. WILL MONITOR PATIENT PRESENTS WITH HYPOXIA.
--- NOTE | 2020-08-08 08:19 | NUR ---
PATIENT RESTING IN BED. NO CURRENT PAIN OR DISTRESS. BIPAP IN PLACE. EASILY AROUSED. RESP EVEN AND UNLABORED AT THIS TIME O2 SAT 99 ON 2 L. HEART SOUNDS REGULAR RATE AND RYTHYM. TELE SR 78 NO VERBALIZED COMPLAINTS. ENCOURAGED PATIENT TO WALK AROUND FLOOR TODAY. AND SIT UP IN CHAIR. RESIDENT AWAITING DISCHARGE TO [place].
--- NOTE | 2020-08-08 09:19 | MORECARE ---
CASE MANAGEMENT DISCHARGE SUMMARY PATIENT: LANE ONEAL UNIT: [id number] ADM DATE: 07/24/20 AGE: 60 : 62 SEX: F ROOM/BED: D.2112 AUTHOR: MERA,DOC PHYSICIAN: REFERRING PHYSICIAN: BESSY CHOWDARY MD DATE OF SERVICE: 08/08/20 Case Management Discharge Planning Summary COMMENTS ENTERED DATE: 08/08/20 9:17 CT COMMENT TYPE: Discharge Planning REVIEWER: Deena Menendez UPDATED CLINICAL [facility] TO [facility]. RECEIVED A CALL FROM XIOMARA HUITRON FROM [facility] THAT WE CURRENTLY ARE NOT GIVING COVID VACCINES TO PATIENTS IN THE HOSPITAL. WILL INFORM PATIENT, BUT SHE IS CURRENTLY NOT AVAILABLE. ENTERED DATE: 08/08/20 0:48 CT COMMENT TYPE: Discharge Planning REVIEWER: Uma Delgado 08/07/20 CM spoke with Ramona at [facility] she stated that they did have a bed available and that they was sending out for Auth today. Requested updated clinicals and to have patient's trilogy brought to hospital to make sure it is available for discharge. Ramona also wanted to know if patient has been vaccinated for Covid. CM spoke with patient and she stated that she has had one of her injections but not the other yet. Patient stated that she would like to get it while she is in the hospital if possible. CM called and left Message with Eneida Farley to see if this is possible. [facility]. CM will continue to follow and assist as needed with discharge planning needs. ENTERED DATE: 08/06/20 11:35 CT COMMENT TYPE: Discharge Planning REVIEWER: Deena Menendez Updated clinical with NONPASSR patient and negative Covid result faxed to [facility]. ENTERED DATE: 08/05/20 15:35 CT COMMENT TYPE: Discharge Planning REVIEWER: Deena Menendez I spoke with [facility] to check on status of referral. She states they will not have a bed until . States she will need a AGUILAR and also a covid test. I have ordered Covid test and completed AGUILAR faxed to [facility]. CM will continue to follow and assist with discharge planning/needs. ENTERED DATE: 08/04/20 16:04 CT COMMENT TYPE: Discharge Planning REVIEWER: Luz Maria Cabrales CM met with patient this date to inform patient that her insurance does not cover inpatient rehab and discuss alternative placement to a group home facility. Patient choice list discussed with patient with 1st choice being [facility] and [facility]. Pt right of choice form signed and placed on patient chart. CM faxed clinical documentation to [facility] ([phone]) and received notification that facility did not have availability. Clinical documentation [phone][facility] for potential placement. Awaiting communication from [facility] pending acceptance. ENTERED DATE: 07/28/20 16:10 CT COMMENT TYPE: Discharge Planning REVIEWER: Deena Menendez Received notification that [facility] is not in network with patient's insurance. She does not qualify per Monae Valverde for OP Cardiac Rehab. Patient states she was wanting inpatient rehab here at [facility] and she was just misunderstood. I have notified Teri in rehab to start PA. I also provided the patient with a list of SNF and pamphlets and she is open to going to a skilled facility if her insurance does not authorize Inpatient rehab. CM will continue to follow and assist with discharge planning/needs. ENTERED DATE: 07/27/20 12:07 CT COMMENT TYPE: Discharge Planning REVIEWER: David Zaragoza [facility]. CM met with patient to complete DC plan and to evaluate needs. Patient stated that she is unsure of why she was readmitted. Clinical documentation states that the patient was dyspneic and treated for hypoglycemia. Patient stated that she was able to obtain her medications after last discharge but unfortunately was not able to keep her follow up appointment. Patient stated that she followed the dc instructions given to her and was compliant with her medications. It appears that this readmission was due to an exacerbation of her chronic COPD condition. Patient lives independently with her mother, Xiomara Lin, . Patient stated that her home is safe and has electricity and running water. Patient stated that the home has 1 step to enter and she is able to manage the steps without difficulty. Patient stated that she has no problems paying for medications and she fills her medications at [facility]. Patient stated that her primary care physician is Dr. Karimi. CM discussed availability of home health, rehab services, and medical equipment. Patient declined SNF, IPR, and DME. Patient would like [facility] services, with [facility] if she qualifies. Patient stated that she only drives to follow up with physicians. Patient stated that she has CHF and COPD. Patient stated she would like to have both Cardiac Rehab and Pulmonary Rehab. Patient further stated that she would like to speak to representatives of the rehabs. CM team informed patient that both cardiac and pulmonary rehab are likely outpatient services. The patient stated that she would like inpatient facilities. LAKESHIA signed for Cardiac Rehab, Respiratory Rehab, and [facility] and placed in chart. CM team to find and present facilities for patient's choice. Patient stated that she has a Nebulizer, a Trilogy machine, and Oxygen concentrator through [facility]. Patient further stated that she has a wheelchair, bedside commode, cane, walker, and walk in shower with built-in shower bench. Patient voiced no other needs at this time and is satisfied with DC plan. DC IMM delivered, explained, signed by the patient, and placed in chart. Signed form also left with the patient. CM will continue to follow and will assist as needed with dc plans/needs. DCP REVIEW SUMMARY ANTICIPATED D/C DATE: EXPECTED LOS : CASE STATUS: DCP Initiated INITIAL REVIEW: 07/23/2020 INITIAL REVIEWER: Wanda Gross FINAL DISCHARGE DISPOSITION: : FINAL REVIEWER: FINAL REVIEW DATE: DCP Focus Questions & Answers DCP Screen QUESTION: ANSWER High Risk Factors: : 3 or more ED visits within the last 60 days DCP Evaluation QUESTION: ANSWER Patient's ability to cope with chronic illness : c. Inadequate (3+ ED visits in 6 mos., readmits within 30 days, 2+ hospital admissions in 1 yr.) Family / Caregiver's ability to cope with chronic illness: : b. Minimal (occasionally not dependable to meet pt's. needs, can meet pt's. basic ADL's) Physical Status: : Compromised nutritional status Living Arrangements: : Home with Parents Baseline cognitive status: : *Oriented to person, place, situation, time and present Medication Management: : Patient states cannot afford medications Pharmacy name(s): : [facility] Would patient like to participate in any Care Coordination programs (if applicable): : Not applicable Does the patient have electricity at home? : Yes Does the patient have running water in their house? : Yes Mental health screen: : No mental health history DCP Re-evaluation QUESTION: ANSWER Patient and/or caregiver agree upon recommended discharge plan? : Yes Patient's current cognitive status: : *Oriented to person, place, situation, time and present Reassessment due to: : New discovery of admission to an acute inpatient facility within 30 days Functional screen assessment: : Basic needs can adequately be met by self Patient gives permission to discuss discharge plans with: (name, relationship and number) : motherXiomara, Equipment needed for post hospitalization: : None Patient with capacity for self-care or can be cared for in same environment as prior to hospitalization? : Yes Physical environment modification needed / anticipated for discharge: : No Would patient like to participate in any Care Coordination programs (if applicable): : Not applicable PATIENT: Jesu L[address] Estrella ENCOUNTER: [id number] MEDICAL RECORD#: [id number] ADMISSION DATE: 07/24/2020 DISCHARGE DATE: ATTENDING MD: BESSY PATTERSON : AGE: 60 MARITAL STATUS: D DC PLAN ID: [id number] FACILITY: [facility] PRINTED ON: 08/08/20 9:19 CT All edits/amendments must be made on the electronic document DICTATION DATE: 08/08/20918 DINING HOST: TAISHA 08/08/20918 RPT#: [id number] DC DATE: STATUS: ADM IN [facility] [address] [place] [address] END OF REPORT
[2020-08-08 11:08] VITALS: BP 99/55
--- NOTE | 2020-08-08 14:17 | NUR ---
I have reviewed this patient and I concur with the Shift Assessment completed by the Licensed Practical Nurse today this shift.
[2020-08-08 15:26] VITALS: BP 108/54
--- NOTE | 2020-08-08 17:00 | NUR ---
PATIENT SITTING UP IN BED. NO CURRENT PAIN OR DISTRESS NOTED. RESP EVEN AND UNLABORED O2 SAT 99 ON 2L. 95 ON RA. FAMILY VISITING BROUGHT PATIENT SUPPER. COVERED WITH 6 UNITS OF INSULIN BS 294. NO VERBAL COMPLAINTS.
[2020-08-08 20:58] VITALS: BP 132/59
[2020-08-09 06:09] LABS: BASOPHILS 0 % (0-2); EOSINOPHILS 0.7 % (0-7); HEMATOCRIT 32.7 % (36.0-48.0); HEMOGLOBIN 9.5 g/dL (12-16); IMMATURE GRANULOCYTES 0.7 % (0-5); LYMPHOCYTE ABS# 1.62 10x3/uL (1.18-3.74); MCH 28.7 pg (26.0-34.0); MCHC 29.1 g/dL (31.0-37.0); MCV 98.8 fL (80.0-100.0); MEAN PLATELET VOLUME 9.8 fL (7.4-10.4); MONOCYTES 9.7 % (2-11); NEUTROPHIL ABS# 6.85 10x3/uL (1.56-6.13); NEUTROPHILS 71.9 % (40-80); PLATELET COUNT 153 10x3/uL (130-400); RBC 3.31 10x6/uL (4.00-5.40); RDW 14.2 % (11.5-14.5); WBC 9.5 10x3/uL (4.8-10.8)
[2020-08-09 06:15] VITALS: BP 145/62
[2020-08-09 06:46] LABS: ALBUMIN 2.3 g/dL (3.4-5.0); ALKALINE PHOSPHATASE 81 U/L (30-120); ALT (SGPT) 116 U/L (10-68); BILIRUBIN - TOTAL 0.25 mg/dL (0.2-1.3); CALC OSMOLALITY 284 mosm/kg (275-300); CALCIUM 7.8 mg/dL (8.5-10.1); CHLORIDE - SERUM 102 mmol/L (98-107); CREATININE - SERUM 0.6 mg/dL (0.6-1.3); GLUCOSE 146 mg/dL (74-106); MAGNESIUM - SERUM 2.3 mg/dL (1.8-2.4); POTASSIUM - SERUM 4.1 mmol/L (3.5-5.1); PROTEIN - SERUM 4.7 g/dL (6.4-8.2); SODIUM 141 mmol/L (136-145); UREA NITROGEN 14 mg/dL (7-18); eGFR NON AFRICAN AMERICAN > 90 mL/min (90-120)
[2020-08-09 06:47] LABS: CARBON DIOXIDE 41.8 mmol/L (21.0-32.0)
--- NOTE | 2020-08-09 06:51 | NUR ---
RECEIVED BEDSIDE REPORT PATIENT RESTING COMFORTABLY NO CURRENT PAIN OR DISTRESS. RESP EVEN AND UNLABORED. O2 IN USE AT 2 LITERS. CO2 LEVEL STILL CRITICAL AT 41.8.
[2020-08-09 07:47] VITALS: BP 116/62
--- NOTE | 2020-08-09 09:02 | NUR ---
PATIENT RESTING COMFORTABLY WITH BIPAP IN PLACE, NO CURRENT DISTRESS NOTED. RESP EVEN AND UNLABORED. O2 SAT 100 ON 2L. LUNG SOUNDS WITH SLIGHT WHEEZING IN BILATERAL LOWER LOBES. HEART SOUNDS REGULAR, SR 75 PER TELE. PATIENT AWAITING DISCHARGE APPROVAL FROM INSURANCE REQU[facility].
[2020-08-09 11:20] VITALS: BP 114/59
--- NOTE | 2020-08-09 17:37 | NUR ---
PATIENT RESTING AND RELAXED. NO CURRENT PAIN OR DISTRESS NOTED. RESP EVEN AND UNLABORED O2 IN USE VIA NC AT 2l O2 SAT 99. NO VERBALIZED COMPLAINTS.
--- NOTE | 2020-08-09 17:57 | NUR ---
I have reviewed this patient and I concur with the Shift Assessment completed by the Licensed Practical Nurse today this shift.
--- NOTE | 2020-08-09 19:05 | NUR ---
REPORT RECEIVED, PT CARE ASSUMED. PT SITTING UP IN BED, WATCHING TV, AAOX4. REQUESTING WATER, PROVIDED. DENIES ANY OTHER NEEDS AT THIS TIME. BED LOWEST, SRX1, CL WITHIN REACH. CPOC.
[2020-08-09 21:04] VITALS: BP 111/55
[2020-08-10 01:57] VITALS: BP 118/59
[2020-08-10 06:10] VITALS: BP 113/47
[2020-08-10 11:20] VITALS: BP 117/76
[2020-08-10 16:12] VITALS: BP 105/49
[2020-08-10 19:52] VITALS: BP 127/74
[2020-08-10 22:38] VITALS: BP 95/49
[2020-08-11 02:10] LABS: BILIRUBIN NEGATIVE (NEGATIVE); KETONE NEGATIVE (NEGATIVE); NITRITE NEGATIVE (NEGATIVE); UROBILINOGEN NORMAL mg/dL (< 2)
[2020-08-11 04:00] VITALS: BP 142/67
--- NOTE | 2020-08-11 07:20 | NUR ---
RECIEVE REPORT. RESTING IN BED WITH EYES CLOSED. SINUS RHYTHM ON TELEMETRY. NO SIGNS OF DISTRESS. CONTINUE PLAN OF CARE AND SAFETY PRECAUTIONS.
[2020-08-11 08:25] VITALS: BP 116/62
--- NOTE | 2020-08-11 10:41 | NUR ---
PATIENT WAS WALKING OUT OF BATHROOM WHEN PT CAME IN ROOM. PATIENT REFUSED TO WALK, SAYING SHE IS GETTING UP IN HER ROOM A LOT.
[2020-08-11 12:46] VITALS: BP 125/614
--- NOTE | 2020-08-11 14:51 | MORECARE ---
CASE MANAGEMENT DISCHARGE SUMMARY PATIENT: LANE ONEAL UNIT: [id number] ADM DATE: 07/24/20 AGE: 60 : 62 SEX: F ROOM/BED: D.2112 AUTHOR: MERA,DOC PHYSICIAN: REFERRING PHYSICIAN: BESSY CHOWDARY MD DATE OF SERVICE: 08/11/20 Case Management Discharge Planning Summary COMMENTS ENTERED DATE: 08/11/20 13:49 CT COMMENT TYPE: Discharge Planning REVIEWER: Mary Moreno CM faxed update to Ramona at [facility]. Auth for SNF is pending with insurance company. CM spoke with patient about getting someone to fruit or nut picker her Trilogy and take it to the rehab facility when she is discharged to SNF. Patient states she doesn't have anyone that can drive. States her mom is in the home but can't drive to take the Trilogy to [facility]. CM called [facility], spoke with Jim. DME will transport Trilogy to [facility]R when CM notifies them of discharge to facility. Patient is satisfied with DC plan. ENTERED DATE: 08/08/20 9:17 CT COMMENT TYPE: Discharge Planning REVIEWER: Deena Menendze UPDATED CLINICAL [facility] RECEIVED A CALL FROM XIOMARA HUITRON FROM [employer] [employer] THAT WE CURRENTLY ARE NOT GIVING COVID VACCINES TO PATIENTS IN THE HOSPITAL. WILL INFORM PATIENT, BUT SHE IS CURRENTLY NOT AVAILABLE. ENTERED DATE: 08/08/20 0:48 CT COMMENT TYPE: Discharge Planning REVIEWER: Uma Delgado 08/07/20 CM spoke with Ramona at [facility] she stated that they did have a bed available and that they was sending out for Auth today. Requested updated clinicals and to have patient's trilogy brought to hospital to make sure it is available for discharge. Ramona also wanted to know if patient has been vaccinated for Covid. CM spoke with patient and she stated that she has had one of her injections but not the other yet. Patient stated that she would like to get it while she is in the hospital if possible. CM called and left Message with Eneida Farley to see if this is possible. Faxed updates to [facility]. CM will continue to follow and assist as needed with discharge planning needs. ENTERED DATE: 08/06/20 11:35 CT COMMENT TYPE: Discharge Planning REVIEWER: Deena Menendez Updated clinical with NONPASSR patient and [facility] ENTERED DATE: 08/05/20 15:35 CT COMMENT TYPE: Discharge Planning REVIEWER: Deena Menendez I spoke with Ramona from [facility] to check on status of referral. She states they will not have a bed until . States she will need a AGUILAR and also a covid test. I have ordered Covid test and completed AGUILAR faxed to [facility]. CM will continue to follow and assist with discharge planning/needs. ENTERED DATE: 08/04/20 16:04 CT COMMENT TYPE: Discharge Planning REVIEWER: Luz Maria Cabrales CM met with patient this date to inform patient that her insurance does not cover inpatient rehab and discuss alternative placement to a fpc facility. Patient choice list discussed with patient with 1[facility] choice [facility] and [facility] Pt right of choice form signed and placed on patient chart. CM faxed clinical documentation to [facility] ([phone]) and received notification that facility did not have availability. Clinical documentation faxed to second choice [facility] ([phone]) for potential placement. Awaiting communication from [facility] pending acceptance. ENTERED DATE: 07/28/20 16:10 CT COMMENT TYPE: Discharge Planning REVIEWER: Deena Menendez Received notification that [facility] is not in network with patient's insurance. She does not qualify per Monae Valverde for OP Cardiac Rehab. Patient states she was wanting inpatient rehab here at [facility] and she was just misunderstood. I have notified Teri in rehab to start PA. I also provided the patient with a list of SNF and pamphlets and she is open to going to a skilled facility if her insurance does not authorize Inpatient rehab. CM will continue to follow and assist with discharge planning/needs. ENTERED DATE: 07/27/20 12:07 CT COMMENT TYPE: Discharge Planning REVIEWER: David Zarago[facility]. CM met with patient to complete DC plan and to evaluate needs. Patient stated that she is unsure of why she was readmitted. Clinical documentation states that the patient was dyspneic and treated for hypoglycemia. Patient stated that she was able to obtain her medications after last discharge but unfortunately was not able to keep her follow up appointment. Patient stated that she followed the dc instructions given to her and was compliant with her medications. It appears that this readmission was due to an exacerbation of her chronic COPD condition. Patient lives independently with her mother, Xiomara Lin, . Patient stated that her home is safe and has electricity and running water. Patient stated that the home has 1 step to enter and she is able to manage the steps without difficulty. Patient stated that she has no problems paying for medications and she fills her medications at [facility]. Patient stated that her primary care physician is Dr. Kariim. CM discussed availability of home health, rehab services, and medical equipment. Patient declined SNF, IPR, and DME. Patient would like HHS services, with [facility] if she qualifies. Patient stated that she only drives to follow up with physicians. Patient stated that she has CHF and COPD. Patient stated she would like to have both Cardiac Rehab and Pulmonary Rehab. Patient further stated that she would like to speak to representatives of the rehabs. CM team informed patient that both cardiac and pulmonary rehab are likely outpatient services. The patient stated that she would like inpatient facilities. LAKESHIA signed for Cardiac Rehab, Respiratory Rehab, and [facility] and placed in chart. CM team to find and present facilities for patient's choice. Patient stated that she has a Nebulizer, a Trilogy machine, and Oxygen concentrator through [facility]. Patient further stated that she has a wheelchair, bedside commode, cane, walker, and walk in shower with built-in shower bench. Patient voiced no other needs at this time and is satisfied with DC plan. DC IMM delivered, explained, signed by the patient, and placed in chart. Signed form also left with the patient. CM will continue to follow and will assist as needed with dc plans/needs. DCP REVIEW SUMMARY ANTICIPATED D/C DATE: EXPECTED LOS : CASE STATUS: DCP Initiated INITIAL REVIEW: 07/23/2020 INITIAL REVIEWER: Wanda Gross FINAL DISCHARGE DISPOSITION: : FINAL REVIEWER: FINAL REVIEW DATE: DCP Focus Questions & Answers DCP Screen QUESTION: ANSWER High Risk Factors: : 3 or more ED visits within the last 60 days DCP Evaluation QUESTION: ANSWER Patient's ability to cope with chronic illness : c. Inadequate (3+ ED visits in 6 mos., readmits within 30 days, 2+ hospital admissions in 1 yr.) Family / Caregiver's ability to cope with chronic illness: : b. Minimal (occasionally not dependable to meet pt's. needs, can meet pt's. basic ADL's) Physical Status: : Compromised nutritional status Living Arrangements: : Home with Parents Baseline cognitive status: : *Oriented to person, place, situation, time and present Medication Management: : Patient states cannot afford medications Pharmacy name(s): : [facility] Would patient like to participate in any Care Coordination programs (if applicable): : Not applicable Does the patient have electricity at home? : Yes Does the patient have running water in their house? : Yes Mental health screen: : No mental health history DCP Re-evaluation QUESTION: ANSWER Patient's current cognitive status: : *Oriented to person, place, situation, time and present Patient and/or caregiver agree upon recommended discharge plan? : Yes Reassessment due to: : New discovery of admission to an acute inpatient facility within 30 days Functional screen assessment: : Basic needs can adequately be met by self Patient gives permission to discuss discharge plans with: (name, relationship and number) : mother, Xiomara Lin, Equipment needed for post hospitalization: : None Patient with capacity for self-care or can be cared for in same environment as prior to hospitalization? : Yes Physical environment modification needed / anticipated for discharge: : No Would patient like to participate in any Care Coordination programs (if applicable): : Not applicable PATIENT: LANE ONEAL ENCOUNTER: [id number] MEDICAL RECORD#: [id number] ADMISSION DATE: 07/24/2020 DISCHARGE DATE: ATTENDING MD: BESSY PATTERSON : AGE: 60 MARITAL STATUS: D DC PLAN ID: [id number] FACILITY: [facility] PRINTED ON: 08/11/20 14:50 CT All edits/amendments must be made on the electronic document DICTATION DATE: 08/11/201449 JOWL TRIMMER: TAISHA 08/11/201449 RPT#: [id number] DC DATE: STATUS: ADM IN [facility] [address] [place] [address] END OF REPORT
[2020-08-11 17:01] VITALS: BP 108/70
[2020-08-11 20:00] VITALS: BP 106/49
--- NOTE | 2020-08-11 20:40 | NUR ---
REPORT RECEIVED, PT A&O, LAYING IN BED. NO S/S OF DISTRESS OBSERVED. RR EVEN AND UNLABORED ON 4L. IV TO L WRIST PATENT, SL, SWAB CAPS IN USE. PT C/O OF ANXIETY RELATED TO UNCERTAINTY OF WHAT REHAB ENTAILS. PT HAS NOT BEEN SLEEPING WELL DUE TO ANXIETY. TOLD PT WE WOULD DISCUSS REHAB IN THE MORNING SO THAT PT COULD GET SOME REST. BED LOCKED AND LOWERED, CL IN REACH. ASSESSMENT COMPLETE. WILL CONT POC.
[2020-08-12] VITALS: BP 124/62
--- NOTE | 2020-08-12 03:36 | NUR ---
I have reviewed this patient and I concur with the Shift Assessment completed by the Licensed Practical Nurse today this shift.
[2020-08-12 04:00] VITALS: BP 172/69
[2020-08-12 06:11] LABS: BASOPHILS 0 % (0-2); EOSINOPHILS 1.1 % (0-7); HEMATOCRIT 33.7 % (36.0-48.0); HEMOGLOBIN 9.4 g/dL (12-16); IMMATURE GRANULOCYTES 0.1 % (0-5); LYMPHOCYTE ABS# 1.06 10x3/uL (1.18-3.74); LYMPHOCYTES 14.4 % (15-50); MCH 28.6 pg (26.0-34.0); MCHC 27.9 g/dL (31.0-37.0); MCV 102.4 fL (80.0-100.0); MEAN PLATELET VOLUME 8.7 fL (7.4-10.4); MONOCYTES 10.3 % (2-11); NEUTROPHIL ABS# 5.47 10x3/uL (1.56-6.13); NEUTROPHILS 74.1 % (40-80); RBC 3.29 10x6/uL (4.00-5.40); RDW 14.3 % (11.5-14.5); WBC 7.4 10x3/uL (4.8-10.8)
[2020-08-12 06:18] LABS: PLATELET COUNT 115 10x3/uL (130-400)
[2020-08-12 06:35] LABS: ALBUMIN 2.4 g/dL (3.4-5.0); ALKALINE PHOSPHATASE 154 U/L (30-120); ALT (SGPT) 245 U/L (10-68); BILIRUBIN - TOTAL 0.31 mg/dL (0.2-1.3); CALCIUM 8.6 mg/dL (8.5-10.1); CHLORIDE - SERUM 98 mmol/L (98-107); CREATININE - SERUM 0.5 mg/dL (0.6-1.3); POTASSIUM - SERUM 4.3 mmol/L (3.5-5.1); PROTEIN - SERUM 5.2 g/dL (6.4-8.2); SODIUM 139 mmol/L (136-145); UREA NITROGEN 10 mg/dL (7-18); eGFR NON AFRICAN AMERICAN > 90 mL/min (90-120)
[2020-08-12 06:48] LABS: CALC OSMOLALITY 276 mosm/kg (275-300); GLUCOSE 94 mg/dL (74-106)
[2020-08-12 06:52] LABS: CARBON DIOXIDE 44.5 mmol/L (21.0-32.0)
--- NOTE | 2020-08-12 07:20 | NUR ---
RECIEVE REPORT. ALERT AND ORIENTED X4. SITTING UP IN BED. EXPRESSES CONCERNS FOR MOTHER WHILE IN REHAB. REQUEST TO SPEAK WITH CASE MANAGEMENT. NOTIFY CM UPON ARRIVAL. CONTINUE PAIN MANAGEMENT ORDERED. CONTINUE PLAN OF CARE AND SAFETY PRECAUTIONS.
[2020-08-12 08:34] VITALS: BP 105/52
--- NOTE | 2020-08-12 12:35 | NUR ---
Nutrition Reassessment/Follow-up: Intermittent nausea affecting PO intake; ate ~25% of breakfast this AM. Diet: Diabetic PO intake: 61% avg x 7 meals No new wt; last wt: 110.2# (07/27) Last BM: 08/12 Labs noted: Glu 94, Alb 2.4, elev LFTs Meds noted: Zofran, Lasix, Prednisone, Humulin, Carafate, Protonix, electrolyte protocol Nutrition Goals: -PO intake >=75% avg meal intake. -Stable wt. Nutrition Intervention: -Nutrition needs unchanged since initial assessment; no new wt available. -Encourage PO intake and honor food preferences within diet restrictions. -Offer/encourage nutrition supplements. -Need new wt; last wt is >2 wks old. -RD will follow up within 3 days.
[2020-08-12 12:57] VITALS: BP 104/58
--- NOTE | 2020-08-12 13:59 | NUR ---
been waing on her own ask to be taken off pt
--- NOTE | 2020-08-12 17:12 | MORECARE ---
CASE MANAGEMENT DISCHARGE SUMMARY PATIENT: LANE ONEAL UNIT: [id number] ADM DATE: 07/24/20 AGE: 60 : 62 SEX: F ROOM/BED: D.8312 AUTHOR: MERA,DOC PHYSICIAN: REFERRING PHYSICIAN: BESSY CHOWDARY MD DATE OF SERVICE: 08/12/20 Case Management Discharge Planning Summary COMMENTS ENTERED DATE: 08/12/20 16:58 CT COMMENT TYPE: Discharge Planning REVIEWER: Uma Delgado CM spoke with Ramona at rehab and [facility] is requesting additional clinicals. CM explained that there wasn't any updates they was sent yesterday. CM was given the option for P2P for denial to SNF. CM called and set P2P with Kar[facility] for denial. CM was notified later this evening that patient she was denied SNF placement. They stated that patient needs LTC or HALFWAY. which is something that is not covered by her insurance. CM will discuss with patient but most likely have to d/c home with [facility]. CM will continue to follow and assist as needed with d/c planning/ needs. ENTERED DATE: 08/11/20 13:49 CT COMMENT TYPE: Discharge Planning REVIEWER: Mary Moreno CM faxed update to Ramona at [facility]. Auth for SNF is pending with insurance company. CM spoke with patient about getting someone to pick up and delivery driver her Trilogy and take it to the rehab facility when she is discharged to SNF. Patient states she doesn't have anyone that can drive. States her mom is in the home but can't drive to take the Trilogy to [facility]. CM called [facility], spoke with Jim. DME will transport Trilogy to [facility] when CM notifies them of discharge to facility. Patient is satisfied with DC plan. ENTERED DATE: 08/08/20 9:17 CT COMMENT TYPE: Discharge Planning REVIEWER: Deena Menendez UPDATED CLINICAL [facility] RECEIVED A CALL FROM XIOMARA HUITRON FROM [employer] THAT WE CURRENTLY ARE NOT GIVING COVID VACCINES TO PATIENTS IN THE HOSPITAL. WILL INFORM PATIENT, BUT SHE IS CURRENTLY NOT AVAILABLE. ENTERED DATE: 08/08/20 0:48 CT COMMENT TYPE: Discharge Planning REVIEWER: Uma Delgado 08/07/20 CM spoke with Ramona at [facility] she stated that they did have a bed available and that they was sending out for Auth today. Requested updated clinicals and to have patient's trilogy brought to hospital to make sure it is available for discharge. Ramona also wanted to know if patient has been vaccinated for Covid. CM spoke with patient and she stated that she has had one of her injections but not the other yet. Patient stated that she would like to get it while she is in the hospital if possible. CM called and left Message with Eneida Farley to see if this is possible. [facility] CM will continue to follow and assist as needed with discharge planning needs. ENTERED DATE: 08/06/20 11:35 CT COMMENT TYPE: Discharge Planning REVIEWER: Deena Menendez Updated clinical with NONPASSR patient and negative Covid result [facility] ENTERED DATE: 08/05/20 15:35 CT COMMENT TYPE: Discharge Planning REVIEWER: Deena Menendez I spoke with [facility] to check on status of referral. She states they will not have a bed until . States she will need a AGUILAR and also a covid test. I have ordered Covid test and completed AGUILAR faxed to [facility]. CM will continue to follow and assist with discharge planning/needs. ENTERED DATE: 08/04/20 16:04 CT COMMENT TYPE: Discharge Planning REVIEWER: Luz Maria Cabrales CM met with patient this date to inform patient that her insurance does not cover inpatient rehab and discuss alternative placement to a penitentiary facility. Patient choice list discussed with patient with 1st choice being [facility] and 2nd [facility]. Pt right of choice form signed and placed on patient chart. CM faxed clinical documentation to [facility] ([phone]) and received notification that facility did not have availability. Clinical [phone][facility] for potential placement. Awaiting communication from [facility] pending acceptance. ENTERED DATE: 07/28/20 16:10 CT COMMENT TYPE: Discharge Planning REVIEWER: Deena Menendez Received notification that [facility] is not in network with patient's insurance. She does not qualify per Monae Valverde for OP Cardiac Rehab. Patient states she was wanting inpatient rehab here at [facility] and she was just misunderstood. I have notified Teri in rehab to start PA. I also provided the patient with a list of SNF and pamphlets and she is open to going to a skilled facility if her insurance does not authorize Inpatient rehab. CM will continue to follow and assist with discharge planning/needs. ENTERED DATE: 07/27/20 12:07 CT COMMENT TYPE: Discharge Planning REVIEWER: David Zaragoza [facility]. CM met with patient to complete DC plan and to evaluate needs. Patient stated that she is unsure of why she was readmitted. Clinical documentation states that the patient was dyspneic and treated for hypoglycemia. Patient stated that she was able to obtain her medications after last discharge but unfortunately was not able to keep her follow up appointment. Patient stated that she followed the dc instructions given to her and was compliant with her medications. It appears that this readmission was due to an exacerbation of her chronic COPD condition. Patient lives independently with her mother, Xiomara Lin, . Patient stated that her home is safe and has electricity and running water. Patient stated that the home has 1 step to enter and she is able to manage the steps without difficulty. Patient stated that she has no problems paying for medications and she fills her medications at [facility]. Patient stated that her primary care physician is Dr. Karimi. CM discussed availability of home health, rehab services, and medical equipment. Patient declined SNF, IPR, and DME. Patient would like HHS services, with [facility] if she qualifies. Patient stated that she only drives to follow up with physicians. Patient stated that she has CHF and COPD. Patient stated she would like to have both Cardiac Rehab and Pulmonary Rehab. Patient further stated that she would like to speak to representatives of the rehabs. CM team informed patient that both cardiac and pulmonary rehab are likely outpatient services. The patient stated that she would like inpatient facilities. LAKESHIA signed for Cardiac Rehab, Respiratory Rehab, and [facility] and placed in chart. CM team to find and present facilities for patient's choice. Patient stated that she has a Nebulizer, a Trilogy machine, and Oxygen concentrator through [facility]. Patient further stated that she has a wheelchair, bedside commode, cane, walker, and walk in shower with built-in shower bench. Patient voiced no other needs at this time and is satisfied with DC plan. DC IMM delivered, explained, signed by the patient, and placed in chart. Signed form also left with the patient. CM will continue to follow and will assist as needed with dc plans/needs. DCP REVIEW SUMMARY ANTICIPATED D/C DATE: EXPECTED LOS : CASE STATUS: DCP Initiated INITIAL REVIEW: 07/23/2020 INITIAL REVIEWER: Wanda Gross FINAL DISCHARGE DISPOSITION: : FINAL REVIEWER: FINAL REVIEW DATE: DCP Focus Questions & Answers DCP Screen QUESTION: ANSWER High Risk Factors: : 3 or more ED visits within the last 60 days DCP Evaluation QUESTION: ANSWER Patient's ability to cope with chronic illness : c. Inadequate (3+ ED visits in 6 mos., readmits within 30 days, 2+ hospital admissions in 1 yr.) Family / Caregiver's ability to cope with chronic illness: : b. Minimal (occasionally not dependable to meet pt's. needs, can meet pt's. basic ADL's) Physical Status: : Compromised nutritional status Living Arrangements: : Home with Parents Baseline cognitive status: : *Oriented to person, place, situation, time and present Medication Management: : Patient states cannot afford medications [facility] Would patient like to participate in any Care Coordination programs (if applicable): : Not applicable Does the patient have electricity at home? : Yes Does the patient have running water in their house? : Yes Mental health screen: : No mental health history DCP Re-evaluation QUESTION: ANSWER Patient's current cognitive status: : *Oriented to person, place, situation, time and present Patient and/or caregiver agree upon recommended discharge plan? : Yes Reassessment due to: : New discovery of admission to an acute inpatient facility within 30 days Functional screen assessment: : Basic needs can adequately be met by self Patient gives permission to discuss discharge plans with: (name, relationship and number) : mother, Xiomara Lin, Equipment needed for post hospitalization: : None Patient with capacity for self-care or can be cared for in same environment as prior to hospitalization? : Yes Physical environment modification needed / anticipated for discharge: : No Would patient like to participate in any Care Coordination programs (if applicable): : Not applicable PATIENT: LANE ONEAL ENCOUNTER: [id number] MEDICAL RECORD#: [id number] ADMISSION DATE: 07/24/2020 DISCHARGE DATE: ATTENDING MD: BESSY PATTERSON : AGE: 60 MARITAL STATUS: D DC PLAN ID: [id number] FACILITY: [facility] PRINTED ON: 08/12/20 17:12 CT All edits/amendments must be made on the electronic document DICTATION DATE: 08/12/201711 QA TEST ANALYST: TAISHA 08/12/201711 RPT#: [id number] DC DATE: STATUS: ADM IN [facility] [address] [place] [address] END OF REPORT
--- NOTE | 2020-08-12 19:45 | NUR ---
REPORT RECEIVED. PT A&O, UP IN BED WATCHING TV. NO S/S OF DISTRESS OBSERVED. RR EVEN & UNLABORED ON 4L. IV INFILTRATED ON L WRIST. IV RESITED TO R WRIST PATENT, SL, SWAB CAPS IN USE. SR 66 ON TELE. BED LOCKED AND LOWERED, CL IN REACH. ASSESSMENT COMPLETE. WILL CONT POC.
[2020-08-12 23:13] VITALS: BP 99/53
--- NOTE | 2020-08-13 00:44 | NUR ---
NOTIFIED SD KOENIG APN OF PTS TACHYCARDIA. ORDERS RECEIVED FOR IV LOPRESSOR. WILL ADMINISTER PER EMAR.
[2020-08-13 03:05] VITALS: BP 113/63
--- NOTE | 2020-08-13 04:37 | NUR ---
PTS IV TO R WRIST WAS ACCIDENTALLY PULLED OUT IN PTS SLEEP. RESITED TO L FA.
[2020-08-13 05:57] VITALS: BP 122/56
[2020-08-13 07:00] LABS: BASOPHILS 0 % (0-2); EOSINOPHILS 0.8 % (0-7); HEMOGLOBIN 9.5 g/dL (12-16); IMMATURE GRANULOCYTES 0.3 % (0-5); LYMPHOCYTE ABS# 0.94 10x3/uL (1.18-3.74); LYMPHOCYTES 13.1 % (15-50); MCH 28.7 pg (26.0-34.0); MCHC 27.9 g/dL (31.0-37.0); MCV 102.7 fL (80.0-100.0); MEAN PLATELET VOLUME 9.9 fL (7.4-10.4); MONOCYTES 10.4 % (2-11); NEUTROPHIL ABS# 5.42 10x3/uL (1.56-6.13); NEUTROPHILS 75.4 % (40-80); PLATELET COUNT 145 10x3/uL (130-400); RBC 3.31 10x6/uL (4.00-5.40); RDW 14.5 % (11.5-14.5); WBC 7.2 10x3/uL (4.8-10.8)
[2020-08-13 07:20] LABS: ALBUMIN 2.7 g/dL (3.4-5.0); ALKALINE PHOSPHATASE 151 U/L (30-120); ALT (SGPT) 227 U/L (10-68); AMYLASE - SERUM 44 U/L (25-115); BILIRUBIN - TOTAL 0.34 mg/dL (0.2-1.3); CALC OSMOLALITY 279 mosm/kg (275-300); CALCIUM 8.5 mg/dL (8.5-10.1); CHLORIDE - SERUM 98 mmol/L (98-107); CREATININE - SERUM 0.4 mg/dL (0.6-1.3); GLUCOSE 99 mg/dL (74-106); LIPASE 64 U/L (73-393); PROTEIN - SERUM 5.6 g/dL (6.4-8.2); SODIUM 141 mmol/L (136-145); UREA NITROGEN 10 mg/dL (7-18); eGFR NON AFRICAN AMERICAN > 90 mL/min (90-120)
--- NOTE | 2020-08-13 07:34 | NUR ---
REPORT RECEIVED. PATIENT IS AAOX4, LYING IN BED ON RIGHT SIDE. NO S/S OF DISTRESS OBSERVED. RR EVEN AND UNLABORED ON 5L O2 VIA NC. PIV TO LT FA, PATENT, SL. PATIENT REQUESTING PRN MORPHINE AT THIS TIME. CL IN REACH, BED LOCKED AND LOWERED. WILL CPOC.
[2020-08-13 07:51] LABS: CARBON DIOXIDE 41.7 mmol/L (21.0-32.0)
[2020-08-13 08:00] VITALS: BP 134/70
--- NOTE | 2020-08-13 11:37 | MORECARE ---
CASE MANAGEMENT DISCHARGE SUMMARY PATIENT: LANE ONEAL UNIT: [id number] ADM DATE: 07/24/20 AGE: 60 : 62 SEX: F ROOM/BED: D.8134 AUTHOR: MERA,DOC PHYSICIAN: REFERRING PHYSICIAN: BESSY CHOWDARY MD DATE OF SERVICE: 08/13/20 Case Management Discharge Planning Summary COMMENTS ENTERED DATE: 08/13/20 11:27 CT COMMENT TYPE: Discharge Planning REVIEWER: Deena Shon CM informed patient that a Peer to Peer was completed, but her insurance continued to deny her rehab. She states she is not going to [facility] and she can not afford assisted living. She will go home. She does consent to home health and [facility] for [facility] or [facility]. She states she feels too sick to discharge today. CM will send referral to [facility]. ENTERED DATE: 08/12/20 16:58 CT COMMENT TYPE: Discharge Planning REVIEWER: Uma Delgado CM spoke with Ramona at rehab and [facility] is requesting additional clinicals. CM explained that there wasn't any updates they was sent yesterday. CM was given the option for P2P for denial to SNF. CM called and set P2P with [facility] for denial. CM was notified later this evening that patient she was denied SNF placement. They stated that patient needs LTC or LISS. which is something that is not covered by her insurance. CM will discuss with patient but most likely have to d/c home with [facility]. CM will continue to follow and assist as needed with d/c planning/ needs. ENTERED DATE: 08/11/20 13:49 CT COMMENT TYPE: Discharge Planning REVIEWER: Mary Moreno CM faxed update to Ramona at [facility]. Auth for SNF is pending with insurance company. 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 Patient states she doesn't have anyone that can drive. States her mom is in the home but can't drive to take the Trilogy to [facility]. CM called [facility], spoke with Jim. DME will transport Trilogy to [facility] when CM notifies them of discharge to facility. Patient is satisfied with DC plan. ENTERED DATE: 08/08/20 9:17 CT COMMENT TYPE: Discharge Planning REVIEWER: Deena Menendez UPDATED CLINICAL FAXED TO [facility]. RECEIVED A CALL FROM XIOMARA HUITRON FROM [facility] [employer] THAT WE CURRENTLY ARE NOT GIVING COVID VACCINES TO PATIENTS IN THE HOSPITAL. WILL INFORM PATIENT, BUT SHE IS CURRENTLY NOT AVAILABLE. ENTERED DATE: 08/08/20 0:48 CT COMMENT TYPE: Discharge Planning REVIEWER: Uma Delgado 08/07/20 ERON spoke with Ramona at [facility] she stated that they did have a bed available and that they was sending out for Auth today. Requested updated clinicals and to have patient's trilogy brought to hospital to make sure it is available for discharge. Ramona also wanted to know if patient has been vaccinated for Covid. CM spoke with patient and she stated that she has had one of her injections but not the other yet. Patient stated that she would like to get it while she is in the hospital if possible. CM called and left Message with Eneida Farley to see if this is possible. Faxed updates to [facility]. CM will continue to follow and assist as needed with discharge planning needs. ENTERED DATE: 08/06/20 11:35 CT COMMENT TYPE: Discharge Planning REVIEWER: Deenarosenda Menendez Updated clinical with NONPASSR patient and negative Covid result faxed to [facility]. ENTERED DATE: 08/05/20 15:35 CT COMMENT TYPE: Discharge Planning REVIEWER: Deena Menendez I spoke with Ramona from [facility] to check on status of referral. She states they will not have a bed until . States she will need a AGUILAR and also a covid test. I have ordered Covid test and completed AGUILAR faxed to [facility]. CM will continue to follow and assist with discharge planning/needs. ENTERED DATE: 08/04/20 16:04 CT COMMENT TYPE: Discharge Planning REVIEWER: Luz Maria Cabrales CM met with patient this date to inform patient that her insurance does not cover inpatient rehab and discuss alternative placement to a retirement facility. Patient choice list discussed with patient with 1st choice being [facility] and [facility] Pt right of choice form signed and placed on patient chart. CM faxed clinical documentation to [facility] ([phone]) and received notification that facility did not have availability. Clinical documentation faxed to second choice [facility] ([phone]) for potential placement. Awaiting communication from [facility] pending acceptance. ENTERED DATE: 07/28/20 16:10 CT COMMENT TYPE: Discharge Planning REVIEWER: Deena Shon Received notification that [facility] is not in network with patient's insurance. She does not qualify per Monae Valverde for OP Cardiac Rehab. Patient states she was wanting inpatient rehab here at [facility] and she was just misunderstood. I have notified Teri in rehab to start PA. I also provided the patient with a list of SNF and pamphlets and she is open to going to a skilled facility if her insurance does not authorize Inpatient rehab. CM will continue to follow and assist with discharge planning/needs. ENTERED DATE: 07/27/20 12:07 CT COMMENT TYPE: Discharge Planning REVIEWER: David [facility]ago[facility]. CM met with patient to complete DC plan and to evaluate needs. Patient stated that she is unsure of why she was readmitted. Clinical documentation states that the patient was dyspneic and treated for hypoglycemia. Patient stated that she was able to obtain her medications after last discharge but unfortunately was not able to keep her follow up appointment. Patient stated that she followed the dc instructions given to her and was compliant with her medications. It appears that this readmission was due to an exacerbation of her chronic COPD condition. Patient lives independently with her mother, Xiomara Lin, . Patient stated that her home is safe and has electricity and running water. Patient stated that the home has 1 step to enter and she is able to manage the steps without difficulty. Patient stated that she has no problems paying for medications and she fills her medications at [facility]. Patient stated that her primary care physician is Dr. Karimi. CM discussed availability of home health, rehab services, and medical equipment. Patient declined SNF, IPR, and DME. Patient would like HHS services, with [facility] if she qualifies. Patient stated that she only drives to follow up with physicians. Patient stated that she has CHF and COPD. Patient stated she would like to have both Cardiac Rehab and Pulmonary Rehab. Patient further stated that she would like to speak to representatives of the rehabs. CM team informed patient that both cardiac and pulmonary rehab are likely outpatient services. The patient stated that she would like inpatient facilities. LAKESHIA signed for Cardiac Rehab, Respiratory Rehab, and [facility] and placed in chart. CM team to find and present facilities for patient's choice. Patient stated that she has a Nebulizer, a Trilogy machine, and Oxygen concentrator through [facility]. Patient further stated that she has a wheelchair, bedside commode, cane, walker, and walk in shower with built-in shower bench. Patient voiced no other needs at this time and is satisfied with DC plan. DC IMM delivered, explained, signed by the patient, and placed in chart. Signed form also left with the patient. CM will continue to follow and will assist as needed with dc plans/needs. DCP REVIEW SUMMARY ANTICIPATED D/C DATE: EXPECTED LOS : CASE STATUS: DCP Initiated INITIAL REVIEW: 07/23/2020 INITIAL REVIEWER: Wanda Gross FINAL DISCHARGE DISPOSITION: : FINAL REVIEWER: FINAL REVIEW DATE: DCP Focus Questions & Answers DCP Screen QUESTION: ANSWER High Risk Factors: : 3 or more ED visits within the last 60 days DCP Evaluation QUESTION: ANSWER Patient's ability to cope with chronic illness : c. Inadequate (3+ ED visits in 6 mos., readmits within 30 days, 2+ hospital admissions in 1 yr.) Physical Status: : Compromised nutritional status Family / Caregiver's ability to cope with chronic illness: : b. Minimal (occasionally not dependable to meet pt's. needs, can meet pt's. basic ADL's) Living Arrangements: : Home with Parents Baseline cognitive status: : *Oriented to person, place, situation, time and present Medication Management: : Patient states cannot afford medications [facility] Would patient like to participate in any Care Coordination programs (if applicable): : Not applicable Does the patient have electricity at home? : Yes Does the patient have running water in their house? : Yes Mental health screen: : No mental health history DCP Re-evaluation QUESTION: ANSWER Reassessment due to: : New discovery of admission to an acute inpatient facility within 30 days Patient and/or caregiver agree upon recommended discharge plan? : Yes Patient's current cognitive status: : *Oriented to person, place, situation, time and present Patient gives permission to discuss discharge plans with: (name, relationship and number) : motherXiomara, Functional screen assessment: : Basic needs can adequately be met by self Equipment needed for post hospitalization: : None Patient with capacity for self-care or can be cared for in same environment as prior to hospitalization? : Yes Physical environment modification needed / anticipated for discharge: : No Would patient like to participate in any Care Coordination programs (if applicable): : Not applicable PATIENT: LNAE ONEAL ENCOUNTER: [id number] MEDICAL RECORD#: [id number] ADMISSION DATE: 07/24/2020 DISCHARGE DATE: ATTENDING MD: BESSY PATTERSON : AGE: 60 MARITAL STATUS: D DC PLAN ID: [id number] FACILITY: [facility] PRINTED ON: 08/13/20 11:37 CT All edits/amendments must be made on the electronic document DICTATION DATE: 08/13/201136 MANAGEMENT ASSOCIATE: TAISHA 08/13/201136 RPT#: [id number] DC DATE: STATUS: ADM IN [facility] [address] [place] [address] END OF REPORT
[2020-08-13 12:19] VITALS: BP 124/52
[2020-08-13 16:07] VITALS: BP 112/62
[2020-08-13 20:56] VITALS: BP 127/67
--- NOTE | 2020-08-13 22:15 | NUR ---
REPORT RECEIVED. PT A&O, UP IN BED WATCHING TV. NO S/S OF DISTRESS OBSERVED. RR EVEN AND UNLABORED ON 5L. IV TO R WRIST PATENT, SL, SWAB CAPS IN USE. BED LOCKED AND LOWERED, CL IN REACH. ASSESSMENT COMPLETE. WILL CONT POC.
[2020-08-14 01:37] VITALS: BP 137/71
[2020-08-14 04:30] VITALS: BP 121/56
[2020-08-14 04:49] VITALS: BP 118/60
[2020-08-14 06:38] LABS: BASOPHILS 0 % (0-2); EOSINOPHILS 1.1 % (0-7); HEMATOCRIT 38.2 % (36.0-48.0); HEMOGLOBIN 10.6 g/dL (12-16); IMMATURE GRANULOCYTES 0.4 % (0-5); LYMPHOCYTE ABS# 0.96 10x3/uL (1.18-3.74); LYMPHOCYTES 13.1 % (15-50); MCH 28.6 pg (26.0-34.0); MCHC 27.7 g/dL (31.0-37.0); MEAN PLATELET VOLUME 9.6 fL (7.4-10.4); NEUTROPHIL ABS# 5.47 10x3/uL (1.56-6.13); NEUTROPHILS 74.4 % (40-80); PLATELET COUNT 149 10x3/uL (130-400); RBC 3.71 10x6/uL (4.00-5.40); RDW 14.6 % (11.5-14.5); WBC 7.4 10x3/uL (4.8-10.8)
--- NOTE | 2020-08-14 06:45 | NUR ---
PATIENT SITTING UP IN BED RESPIRATORY THERAPY IN ROOM. NO CURRENT PAIN OR DISTRESS VERBALIZED. RESP EVEN AND UNLABORED. ALERT AND ORIENTED.
[2020-08-14 06:53] LABS: ALBUMIN 2.9 g/dL (3.4-5.0); ALKALINE PHOSPHATASE 208 U/L (30-120); ALT (SGPT) 269 U/L (10-68); BILIRUBIN - TOTAL 0.44 mg/dL (0.2-1.3); CALC OSMOLALITY 280 mosm/kg (275-300); CHLORIDE - SERUM 98 mmol/L (98-107); CREATININE - SERUM 0.4 mg/dL (0.6-1.3); GLUCOSE 120 mg/dL (74-106); POTASSIUM - SERUM 4.2 mmol/L (3.5-5.1); PROTEIN - SERUM 6.1 g/dL (6.4-8.2); SODIUM 141 mmol/L (136-145); UREA NITROGEN 10 mg/dL (7-18); eGFR NON AFRICAN AMERICAN > 90 mL/min (90-120)
[2020-08-14 07:11] LABS: CARBON DIOXIDE 47.4 mmol/L (21.0-32.0)
[2020-08-14 08:00] VITALS: BP 114/57
--- NOTE | 2020-08-14 08:56 | NUR ---
PATIENT SITTING UP IN BED. RESP EVEN AND UNLABORED. SLIGHT COUGH NOTED. LUNG SOUNDS SLIGHT WHEEZE TO LOWER BILATERAL LOBES. ABDOMEN NON TENDER TO TOUCH, BOWEL SOUNDS ACTIVE. BILATERAL PETAL PULSES GOOD. TOOK ALL MEDS WHOLE. LIDODERM PATCH PLACED ON LEFT FLANK. AWAITING ORDERS FOR REHAB.
--- NOTE | 2020-08-14 11:47 | NUR ---
Nutrition Follow-up: Continues to c/o nausea, usually in the AM. Did not eat breakfast this AM. Agreed to Boost BID. Diet: Diabetic PO intake: 44% avg x 9 meals (08/11-08/13) No new wt; last wt: 110.2# (07/27) Last BM: 08/14 Labs noted: Glu 120, Alb 2.9, elev LFTs Meds noted: Zofran, Lasix, Humulin, Carafate, Protonix, electrolyte protocol -Encourage PO intake and honor food preferences within diet restrictions. -+Boost BID. -Need new wt; noted daily wts ordered. -RD will follow up within 5 days.
[2020-08-14 12:00] VITALS: BP 101/48
[2020-08-14 13:29] LABS: % SATURATION 12 % (15-55); IRON 43 ug/dl (35-150); TOTAL IRON BIND CAPACITY 337 ug/dl (260-445); UNSAT IRON BIND CAPACITY 294 ug/dl (150-375)
--- NOTE | 2020-08-14 13:59 | NUR ---
I have reviewed this patient and I concur with the Shift Assessment completed by the Licensed Practical Nurse today this shift.
--- NOTE | 2020-08-14 17:57 | NUR ---
PATIENT SITTING UP IN BED. NO CURRENT PAIN OR DISTRESS VERBALIZED. RESP EVEN AND UNLABORED, NO SHORTNESS OF BREATH. O2 ON 2L VIA NASAL CANULA. SAT 96. HEART SOUNDS REGULAR RATE AND RYTHYM. IV TO RIGHT WRIST PATENT.
--- NOTE | 2020-08-14 19:44 | NUR ---
REPORT RECEIVED. PT A&O, UP IN BED WATCHING TV. NO S/S OF DISTRESS OBSERVED. RR EVEN & UNLABORED ON 5L. IV TO R WRIST PATENT, SL, SWAB CAPS IN USE. BED LOCKED AND LOWERED, CL IN REACH. ASSESSMENT COMPLETE. WILL CONT POC.
[2020-08-14 20:39] VITALS: BP 127/57
[2020-08-15 00:02] VITALS: BP 136/68
[2020-08-15 06:09] LABS: BASOPHILS 0 % (0-2); EOSINOPHILS 0.4 % (0-7); HEMATOCRIT 33.3 % (36.0-48.0); HEMOGLOBIN 9.4 g/dL (12-16); IMMATURE GRANULOCYTES 0.4 % (0-5); LYMPHOCYTE ABS# 0.59 10x3/uL (1.18-3.74); LYMPHOCYTES 12.6 % (15-50); MCHC 28.2 g/dL (31.0-37.0); MCV 102.8 fL (80.0-100.0); MEAN PLATELET VOLUME 9.8 fL (7.4-10.4); MONOCYTES 10.2 % (2-11); NEUTROPHIL ABS# 3.59 10x3/uL (1.56-6.13); NEUTROPHILS 76.4 % (40-80); PLATELET COUNT 127 10x3/uL (130-400); RBC 3.24 10x6/uL (4.00-5.40); RDW 14.3 % (11.5-14.5)
[2020-08-15 06:21] LABS: WBC 4.7 10x3/uL (4.8-10.8)
[2020-08-15 06:31] LABS: ALBUMIN 2.6 g/dL (3.4-5.0); ALKALINE PHOSPHATASE 182 U/L (30-120); ALT (SGPT) 208 U/L (10-68); BILIRUBIN - TOTAL 0.32 mg/dL (0.2-1.3); CALC OSMOLALITY 279 mosm/kg (275-300); CALCIUM 8.7 mg/dL (8.5-10.1); CHLORIDE - SERUM 92 mmol/L (98-107); GLUCOSE 151 mg/dL (74-106); POTASSIUM - SERUM 4.4 mmol/L (3.5-5.1); PROTEIN - SERUM 5.7 g/dL (6.4-8.2); SODIUM 139 mmol/L (136-145); UREA NITROGEN 10 mg/dL (7-18)
[2020-08-15 06:44] LABS: CREATININE - SERUM 0.6 mg/dL (0.6-1.3); eGFR NON AFRICAN AMERICAN > 90 mL/min (90-120)
--- NOTE | 2020-08-15 06:45 | NUR ---
BED SIDE REPORT RECIEVED. PATIENT AWAKE AND ALERT IN BATHROOM. NO CURRENT PAIN OR DISTRESS VOICED. RESP EVEN AND UNLABORED. O2 98 ON 5L. PIV ON R WRIST PATENT.
[2020-08-15 06:46] LABS: CARBON DIOXIDE 48.8 mmol/L (21.0-32.0)
[2020-08-15] MEDS ORDERED: PAXIL20 MG PO (08:11)
[2020-08-15] MEDS ORDERED: BETAPACE 80 MG80 MG PO (08:11)
[2020-08-15] MEDS ORDERED: LASIX40 MG PO (08:12)
[2020-08-15 08:13] VITALS: BP 129/60
[2020-08-15] MEDS ORDERED: PULMICORT0.5 MG/21 INH (08:13)
[2020-08-15] MEDS ORDERED: MUCINEX600 MG PO (08:14)
[2020-08-15] MEDS ORDERED: LIDODERM 5 %1 PATCH TRANSDERM (08:14)
[2020-08-15] MEDS ORDERED: DALIRESP250 MCG PO (08:14)
[2020-08-15] MEDS ORDERED: MUCOMYST 20% INH (08:15)
[2020-08-15] MEDS ORDERED: PREDNISONE10 MG PO (08:15)
[2020-08-15] MEDS ORDERED: PERCOCET 10-321 EAC1 PO (08:15)
--- NOTE | 2020-08-15 08:58 | NUR ---
PATIENT SITTING UP IN BED. NO CURRENT DISTRESS VOICED. PAIN VERBALIZED TO BACK 10 OUT OF 10 PRN MORPHINE ADMINISTERED IV PUSH ORDERED. RESP EVEN AND UNLABORED ON 5 L VIA NC. LUNG SOUNDS WITH SLIGHT WHEEZING TO LOWER LOBES. HEART SOUNDS REGULAR RATE AND RYTHYM. ABDOMEN NON TENDER BOWEL SOUNDS ACTIVE X 4.
--- NOTE | 2020-08-15 10:01 | MORECARE ---
CASE MANAGEMENT DISCHARGE SUMMARY PATIENT: LANE ONEAL UNIT: [id number] ADM DATE: 07/24/20 AGE: 60 : 62 SEX: F ROOM/BED: D.8912 AUTHOR: MERA,DOC PHYSICIAN: REFERRING PHYSICIAN: BESSY CHOWDARY MD DATE OF SERVICE: 08/15/20 Case Management Discharge Planning Summary COMMENTS ENTERED DATE: 08/15/20 9:50 CT COMMENT TYPE: Discharge Planning REVIEWER: Wanda Hardens LATE ENTRY 0900 SPOKE WITH THE PATIENT TO ADVISE OF DISHARGE TO HOME. CONFIRMED SHE WANTS [facility]. CM HAD SPOKEN WITH [facility]. ADVISED HER THEY CANNOT PICK HER UP UNTIL TUESDAY AM. THE PATIENT IS COMFORTABLE WITH SERVICES BEGINNING ON TUESDAY. PRIMARY TO ADVISE PMD. HER DAUGHTER WORKS UNTIL 1700 IN [place]. SHE MAYBE ABLE TO PROVIDE TRANSPORTATION. THE PATIENT IS TO CONFIRM. SHE HAS HER PORTABLE OXYGEN TANK AT THE BEDSIDE, SHE STATES SHE MAY REQUIRE A TAXI ASSIST TO HOME. SHE WILL CONTACT THE DAUGHTER TO VERIFY WHETHER SHE CAN ASSIST. DISCHARGE IMM EXPLAINED AND SIGNATURES OBTAINED AT 0900.. PATIENT DENIES ANY OTHER NEEDS. ENTERED DATE: 08/13/20 11:27 CT COMMENT TYPE: Discharge Planning REVIEWER: Deena Menendez CM informed patient that a Peer to Peer was completed, but her insurance continued to deny her rehab. She states she is not going to [facility] and she can not afford assisted living. She will go home. She does consent to home health and [facility] for [facility] or [facility]. She states she feels too sick to discharge today. CM will send referral to [facility]. ENTERED DATE: 08/12/20 16:58 CT COMMENT TYPE: Discharge Planning REVIEWER: Uma Delgado CM spoke with Ramona at rehab and [facility] is requesting additional clinicals. CM explained that there wasn't any updates they was sent yesterday. CM was given the option for P2P for denial to SNF. CM called and set P2P with [facility] for denial. CM was notified later this evening that patient she was denied SNF placement. They stated that patient needs LTC or INTERMEDIATE. which is something that is not covered by her insurance. CM will discuss with patient but most likely have to d/c home with [facility]. CM will continue to follow and assist as needed with d/c planning/ needs. ENTERED DATE: 08/11/20 13:49 CT COMMENT TYPE: Discharge Planning REVIEWER: Mary Moreno CM faxed update to Ramona at [facility]. Auth for SNF is pending with insurance company. 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 Patient states she doesn't have anyone that can drive. States her mom is in the home but can't drive to take the Trilogy to [facility]. CM called [facility], spoke with Jim. DME will transport Trilogy to [facility] when CM notifies them of discharge to facility. Patient is satisfied with DC plan. ENTERED DATE: 08/08/20 9:17 CT COMMENT TYPE: Discharge Planning REVIEWER: Deena Menendez UPDATED CLINICAL [facility] TO [facility] RECEIVED A CALL FROM XIOMARA HUITRON FROM [employer] THAT WE CURRENTLY ARE NOT GIVING COVID VACCINES TO PATIENTS IN THE HOSPITAL. WILL INFORM PATIENT, BUT SHE IS CURRENTLY NOT AVAILABLE. ENTERED DATE: 08/08/20 0:48 CT COMMENT TYPE: Discharge Planning REVIEWER: Uma Danny 08/07/20 CM spoke with Ramona at [facility] she stated that they did have a bed available and that they was sending out for Auth today. Requested updated clinicals and to have patient's trilogy brought to hospital to make sure it is available for discharge. Ramona also wanted to know if patient has been vaccinated for Covid. CM spoke with patient and she stated that she has had one of her injections but not the other yet. Patient stated that she would like to get it while she is in the hospital if possible. CM called and left Message with Eneida Farley to see if this is possible. [facility] CM will continue to follow and assist as needed with discharge planning needs. ENTERED DATE: 08/06/20 11:35 CT COMMENT TYPE: Discharge Planning REVIEWER: Deena Menendez Updated clinical with NONPASSR patient and negative Cov[facility] result [facility]. ENTERED DATE: 08/05/20 15:35 CT COMMENT TYPE: Discharge Planning REVIEWER: Deena Menendez I spoke with Ramona from [facility] to check on status of referral. She states they will not have a bed until . States she will need a AGUILAR and also a covid test. I have ordered Covid test and completed AGUILAR faxed to [facility]. CM will continue to follow and assist with discharge planning/needs. ENTERED DATE: 08/04/20 16:04 CT COMMENT TYPE: Discharge Planning REVIEWER: Luz Maria Cabrales CM met with patient this date to inform patient that her insurance does not cover inpatient rehab and discuss alternative placement to a long term facility. Patient choice list discussed with patient with 1st choice being [facility] and 2nd choice [facility]. Pt right of choice form signed and placed on patient chart. CM faxed clinical documentation to [facility] ([phone]) and received notification that facility did not have availability. Clinical documentation [facility][phone][facility] for potential placement. Awaiting communication from [facility] pending acceptance. ENTERED DATE: 07/28/20 16:10 CT COMMENT TYPE: Discharge Planning REVIEWER: Deena Menendez Received notification that [facility] is not in network with patient's insurance. She does not qualify per Monae Valverde for OP Cardiac Rehab. Patient states she was wanting inpatient rehab here at [facility] and she was just misunderstood. I have notified Teri in rehab to start PA. I also provided the patient with a list of SNF and pamphlets and she is open to going to a skilled facility if her insurance does not authorize Inpatient rehab. CM will continue to follow and assist with discharge planning/needs. ENTERED DATE: 07/27/20 12:07 CT COMMENT TYPE: Discharge Planning REVIEWER: David Zaragoza [facility]. CM met with patient to complete DC plan and to evaluate needs. Patient stated that she is unsure of why she was readmitted. Clinical documentation states that the patient was dyspneic and treated for hypoglycemia. Patient stated that she was able to obtain her medications after last discharge but unfortunately was not able to keep her follow up appointment. Patient stated that she followed the dc instructions given to her and was compliant with her medications. It appears that this readmission was due to an exacerbation of her chronic COPD condition. Patient lives independently with her mother, Xiomara Lin, . Patient stated that her home is safe and has electricity and running water. Patient stated that the home has 1 step to enter and she is able to manage the steps without difficulty. Patient stated that she has no problems paying for medications and she fills her medications at [facility]. Patient stated that her primary care physician is Dr. Karimi. CM discussed availability of home health, rehab services, and medical equipment. Patient declined SNF, IPR, and DME. Patient would like HHS services, with [facility] if she qualifies. Patient stated that she only drives to follow up with physicians. Patient stated that she has CHF and COPD. Patient stated she would like to have both Cardiac Rehab and Pulmonary Rehab. Patient further stated that she would like to speak to representatives of the rehabs. CM team informed patient that both cardiac and pulmonary rehab are likely outpatient services. The patient stated that she would like inpatient facilities. LAKESHIA signed for Cardiac Rehab, Respiratory Rehab, and [facility] and placed in chart. CM team to find and present facilities for patient's choice. Patient stated that she has a Nebulizer, a Trilogy machine, and Oxygen concentrator through [facility]. Patient further stated that she has a wheelchair, bedside commode, cane, walker, and walk in shower with built-in shower bench. Patient voiced no other needs at this time and is satisfied with DC plan. DC IMM delivered, explained, signed by the patient, and placed in chart. Signed form also left with the patient. CM will continue to follow and will assist as needed with dc plans/needs. DCP REVIEW SUMMARY ANTICIPATED D/C DATE: EXPECTED LOS : CASE STATUS: DCP Initiated INITIAL REVIEW: 07/23/2020 INITIAL REVIEWER: Wanda Gross FINAL DISCHARGE DISPOSITION: : FINAL REVIEWER: FINAL REVIEW DATE: DCP Focus Questions & Answers DCP Screen QUESTION: ANSWER High Risk Factors: : 3 or more ED visits within the last 60 days DCP Evaluation QUESTION: ANSWER Patient's ability to cope with chronic illness : c. Inadequate (3+ ED visits in 6 mos., readmits within 30 days, 2+ hospital admissions in 1 yr.) Family / Caregiver's ability to cope with chronic illness: : b. Minimal (occasionally not dependable to meet pt's. needs, can meet pt's. basic ADL's) Physical Status: : Compromised nutritional status Living Arrangements: : Home with Parents Baseline cognitive status: : *Oriented to person, place, situation, time and present Medication Management: : Patient states cannot afford medications Pharmacy name(s): : [facility] Would patient like to participate in any Care Coordination programs (if applicable): : Not applicable Does the patient have electricity at home? : Yes Does the patient have running water in their house? : Yes Mental health screen: : No mental health history DCP Re-evaluation QUESTION: ANSWER Patient and/or caregiver agree upon recommended discharge plan? : Yes Patient's current cognitive status: : *Oriented to person, place, situation, time and present Reassessment due to: : New discovery of admission to an acute inpatient facility within 30 days Functional screen assessment: : Basic needs can adequately be met by self Patient gives permission to discuss discharge plans with: (name, relationship and number) : mother, Xiomara Lin, Equipment needed for post hospitalization: : None Patient with capacity for self-care or can be cared for in same environment as prior to hospitalization? : Yes Physical environment modification needed / anticipated for discharge: : No Would patient like to participate in any Care Coordination programs (if applicable): : Not applicable PATIENT: LANE ONEAL ENCOUNTER: [id number] MEDICAL RECORD#: [id number] ADMISSION DATE: 07/24/2020 DISCHARGE DATE: ATTENDING MD: BESSY PATTERSON : AGE: 60 MARITAL STATUS: D DC PLAN ID: [id number] FACILITY: [facility] PRINTED ON: 08/15/20 10:01 CT All edits/amendments must be made on the electronic document DICTATION DATE: 08/15/20 100 STRUCTURAL IRONWORKER: DM 08/15/20 1001 RPT#: [id number] DC DATE: STATUS: ADM IN [facility] [address] [place] [address] END OF REPORT
--- NOTE | 2020-08-17 16:50 | MORECARE ---
CASE MANAGEMENT DISCHARGE SUMMARY PATIENT: LANE ONEAL UNIT: [id number] ADM DATE: 07/24/20 AGE: 60 : 62 SEX: F ROOM/BED: D.7162 AUTHOR: MERA,DOC PHYSICIAN: REFERRING PHYSICIAN: BESSY CHOWDARY MD DATE OF SERVICE: 08/17/20 Case Management Discharge Planning Summary COMMENTS ENTERED DATE: 08/15/20 9:50 CT COMMENT TYPE: Discharge Planning REVIEWER: Wanda Hardens LATE ENTRY 0900 SPOKE WITH THE PATIENT TO ADVISE OF DISHARGE TO HOME. CONFIRMED SHE WANTS [facility]. CM HAD SPOKEN WITH [facility]. ADVISED HER THEY CANNOT PICK HER UP UNTIL TUESDAY AM. THE PATIENT IS COMFORTABLE WITH SERVICES BEGINNING ON TUESDAY. PRIMARY TO ADVISE PMD. HER DAUGHTER WORKS UNTIL 1700 IN [place]. SHE MAYBE ABLE TO PROVIDE TRANSPORTATION. THE PATIENT IS TO CONFIRM. SHE HAS HER PORTABLE OXYGEN TANK AT THE BEDSIDE, SHE STATES SHE MAY REQUIRE A TAXI ASSIST TO HOME. SHE WILL CONTACT THE DAUGHTER TO VERIFY WHETHER SHE CAN ASSIST. DISCHARGE IMM EXPLAINED AND SIGNATURES OBTAINED AT 0900.. PATIENT DENIES ANY OTHER NEEDS. ENTERED DATE: 08/13/20 11:27 CT COMMENT TYPE: Discharge Planning REVIEWER: Deena Menendez CM informed patient that a Peer to Peer was completed, but her insurance continued to deny her rehab. She states she is not going to [facility] and she can not afford assisted living. She will go home. She does consent to home health and LAKESH[facility] for [facility]. She states she feels too sick to discharge today. CM will send referral to [facility]. ENTERED DATE: 08/12/20 16:58 CT COMMENT TYPE: Discharge Planning REVIEWER: Uma Delgado CM spoke with Ramona at rehab and [facility] is requesting additional clinicals. CM explained that there wasn't any updates they was sent yesterday. CM was given the option for P2P for denial to SNF. CM called and set P2P with Karley for denial. CM was notified later this evening that patient she was denied SNF placement. They stated that patient needs LTC or [facility]. which is something that is not covered by her insurance. CM will discuss with patient but most likely have to d/c home with [facility]. CM will continue to follow and assist as needed with d/c planning/ needs. ENTERED DATE: 08/11/20 13:49 CT COMMENT TYPE: Discharge Planning REVIEWER: Mary Moreno CM faxed update to Ramona at [facility]. Auth for SNF is pending with insurance company. CM spoke with patient about getting someone to fish bait picker her Trilogy and take it to the rehab facility when she is discharged to SNF. Patient states she doesn't have anyone that can drive. States her mom is in the home but can't drive to take the Trilogy to [facility]. CM called [facility], spoke with Jim. DME will transport Trilogy to [facility] when CM notifies them of discharge to facility. Patient is satisfied with DC plan. ENTERED DATE: 08/08/20 9:17 CT COMMENT TYPE: Discharge Planning REVIEWER: Deena Menendez UPDATED CLINICAL FAXED TO [facility] RECEIVED A CALL FROM XIOMARA HUITRON FROM [facility] [employer] THAT WE CURRENTLY ARE NOT GIVING COVID VACCINES TO PATIENTS IN THE HOSPITAL. WILL INFORM PATIENT, BUT SHE IS CURRENTLY NOT AVAILABLE. ENTERED DATE: 08/08/20 0:48 CT COMMENT TYPE: Discharge Planning REVIEWER: Uma Danny 08/07/20 CM spoke with Ramona at [facility] she stated that they did have a bed available and that they was sending out for Auth today. Requested updated clinicals and to have patient's trilogy brought to hospital to make sure it is available for discharge. Ramona also wanted to know if patient has been vaccinated for Covid. CM spoke with patient and she stated that she has had one of her injections but not the other yet. Patient stated that she would like to get it while she is in the hospital if possible. CM called and left Message with Eneida Farley to see if this is possible. [facility]. CM will continue to follow and assist as needed with discharge planning needs. ENTERED DATE: 08/06/20 11:35 CT COMMENT TYPE: Discharge Planning REVIEWER: Deena Menendez Updated clinical with NONPASSR patient and negative Covid result [facility]. ENTERED DATE: 08/05/20 15:35 CT COMMENT TYPE: Discharge Planning REVIEWER: Deena Menendez I spoke with Ramona from [facility] to check on status of referral. She states they will not have a bed until . States she will need a AGUILAR and also a covid test. I have ordered Covid test and completed AGUILAR faxed to [facility]. CM will continue to follow and assist with discharge planning/needs. ENTERED DATE: 08/04/20 16:04 CT COMMENT TYPE: Discharge Planning REVIEWER: Luz Maria Cabrales CM met with patient this date to inform patient that her insurance does not cover inpatient rehab and discuss alternative placement to a care home facility. Patient choice list discussed with patient with 1st choice being [facility] and 2nd choice [facility] and rehab. Pt right of choice form signed and placed on patient chart. CM faxed clinical documentation to [facility] ([phone]) and received notification that facility did not have availability. Clinical documentation fax[facility] ([phone]) for potential placement. Awaiting communication from [facility] pending acceptance. ENTERED DATE: 07/28/20 16:10 CT COMMENT TYPE: Discharge Planning REVIEWER: Deena Menendez Received notification that [facility] is not in network with patient's insurance. She does not qualify per Monae Valverde for OP Cardiac Rehab. Patient states she was wanting inpatient rehab here at [facility] and she was just misunderstood. I have notified Teri in rehab to start PA. I also provided the patient with a list of SNF and pamphlets and she is open to going to a skilled facility if her insurance does not authorize Inpatient rehab. CM will continue to follow and assist with discharge planning/needs. ENTERED DATE: 07/27/20 12:07 CT COMMENT TYPE: Discharge Planning REVIEWER: David Zaragoza [facility]. CM met with patient to complete DC plan and to evaluate needs. Patient stated that she is unsure of why she was readmitted. Clinical documentation states that the patient was dyspneic and treated for hypoglycemia. Patient stated that she was able to obtain her medications after last discharge but unfortunately was not able to keep her follow up appointment. Patient stated that she followed the dc instructions given to her and was compliant with her medications. It appears that this readmission was due to an exacerbation of her chronic COPD condition. Patient lives independently with her mother, Xiomara Lin, . Patient stated that her home is safe and has electricity and running water. Patient stated that the home has 1 step to enter and she is able to manage the steps without difficulty. Patient stated that she has no problems paying for medications and she fills her medications at [facility]. Patient stated that her primary care physician is Dr. Karimi. CM discussed availability of home health, rehab services, and medical equipment. Patient declined SNF, IPR, and DME. Patient would like HHS services, with [facility] if she qualifies. Patient stated that she only drives to follow up with physicians. Patient stated that she has CHF and COPD. Patient stated she would like to have both Cardiac Rehab and Pulmonary Rehab. Patient further stated that she would like to speak to representatives of the rehabs. CM team informed patient that both cardiac and pulmonary rehab are likely outpatient services. The patient stated that she would like inpatient facilities. LAKESHIA signed for Cardiac Rehab, Respiratory Rehab, and [facility] and placed in chart. CM team to find and present facilities for patient's choice. Patient stated that she has a Nebulizer, a Trilogy machine, and Oxygen concentrator through [facility]. Patient further stated that she has a wheelchair, bedside commode, cane, walker, and walk in shower with built-in shower bench. Patient voiced no other needs at this time and is satisfied with DC plan. DC IMM delivered, explained, signed by the patient, and placed in chart. Signed form also left with the patient. CM will continue to follow and will assist as needed with dc plans/needs. DCP REVIEW SUMMARY ANTICIPATED D/C DATE: EXPECTED LOS : CASE STATUS: DCP Initiated INITIAL REVIEW: 07/23/2020 INITIAL REVIEWER: Wanda Gross FINAL DISCHARGE DISPOSITION: : FINAL REVIEWER: FINAL REVIEW DATE: DCP Focus Questions & Answers DCP Screen QUESTION: ANSWER High Risk Factors: : 3 or more ED visits within the last 60 days DCP Evaluation QUESTION: ANSWER Patient's ability to cope with chronic illness : c. Inadequate (3+ ED visits in 6 mos., readmits within 30 days, 2+ hospital admissions in 1 yr.) Physical Status: : Compromised nutritional status Family / Caregiver's ability to cope with chronic illness: : b. Minimal (occasionally not dependable to meet pt's. needs, can meet pt's. basic ADL's) Living Arrangements: : Home with Parents Baseline cognitive status: : *Oriented to person, place, situation, time and present Medication Management: : Patient states cannot afford medications Pharmacy name(s): : [facility] Would patient like to participate in any Care Coordination programs (if applicable): : Not applicable Does the patient have electricity at home? : Yes Does the patient have running water in their house? : Yes Mental health screen: : No mental health history DCP Re-evaluation QUESTION: ANSWER Reassessment due to: : New discovery of admission to an acute inpatient facility within 30 days Patient and/or caregiver agree upon recommended discharge plan? : Yes Patient's current cognitive status: : *Oriented to person, place, situation, time and present Patient gives permission to discuss discharge plans with: (name, relationship and number) : mother, Xiomara Lin, Functional screen assessment: : Basic needs can adequately be met by self Equipment needed for post hospitalization: : None Patient with capacity for self-care or can be cared for in same environment as prior to hospitalization? : Yes Physical environment modification needed / anticipated for discharge: : No Would patient like to participate in any Care Coordination programs (if applicable): : Not applicable PATIENT: LANE ONEAL ENCOUNTER: [id number] MEDICAL RECORD#: [id number] ADMISSION DATE: 07/24/2020 DISCHARGE DATE: 08/15/2020 ATTENDING MD: BESSY PATTERSON : AGE: 60 MARITAL STATUS: D DC PLAN ID: [id number] FACILITY: [facility] PRINTED ON: 08/17/20 16:50 CT All edits/amendments must be made on the electronic document DICTATION DATE: 08/17/201649 FREIGHT RATE CLERK: TAISHA 08/17/201649 RPT#: [id number] DC DATE:08/15/20 STATUS: DIS IN [facility] [address] [place] [address] END OF REPORT
== END 2020-08-15 14:05 | disposition home or self-care (01) | DRG 190 ==
LOC: D.ER 11:18 → D.M2 16:57 → OBSVTIME 16:57 → D.M2 07-24 19:08
PROVIDERS: Emergency Medicine; Family Medicine; Internal Medicine Hematology & Oncology; ADMIT Family Medicine; ATTEND Family Medicine
DX: J44.1 Chronic obstructive pulmonary disease with (acute) exacerbation (principal); E43 Unspecified severe protein-calorie malnutrition; E87.2 Acidosis; B37.0 Candidal stomatitis; E16.2 Hypoglycemia, unspecified; G47.33 Obstructive sleep apnea (adult) (pediatric); I48.91 Unspecified atrial fibrillation; K21.9 Gastro-esophageal reflux disease without esophagitis; F41.9 Anxiety disorder, unspecified; M19.90 Unspecified osteoarthritis, unspecified site; K74.60 Unspecified cirrhosis of liver; Z68.20 Body mass index [BMI] 20.0-20.9, adult; I11.0 Hypertensive heart disease with heart failure; I50.9 Heart failure, unspecified; K57.90 Diverticulosis of intestine, part unspecified, without perforation or abscess without bleeding; Z99.81 Dependence on supplemental oxygen; Z86.711 Personal history of pulmonary embolism; Z86.718 Personal history of other venous thrombosis and embolism

== ENCOUNTER 2020-08-16 12:49 | Inpatient (IN) | payer MEDICARE, MEDICAID ==
[~2020-08-16] VITALS: Ht 157.5 cm; Wt 50.0 kg
[~2020-08-16 12:49] MED LIST changes: +BETAPACE 80 MG80 MG PO; +DALIRESP250 MCG PO; +LASIX40 MG PO; +LIDODERM 5 %1 PATCH TRANSDERM; +MUCINEX600 MG PO; +MUCOMYST 20% INH; +PERCOCET 10-321 EAC1 PO; +PULMICORT0.5 MG/21 INH
[2020-08-16 14:00] LABS: BASOPHILS 0 % (0-2); EOSINOPHILS 0.5 % (0-7); HEMOGLOBIN 10.2 g/dL (12-16); IMMATURE GRANULOCYTES 0.2 % (0-5); LYMPHOCYTE ABS# 0.79 10x3/uL (1.18-3.74); LYMPHOCYTES 12.6 % (15-50); MCH 29.5 pg (26.0-34.0); MCHC 29.1 g/dL (31.0-37.0); MCV 101.2 fL (80.0-100.0); MEAN PLATELET VOLUME 9.6 fL (7.4-10.4); MONOCYTES 8.6 % (2-11); NEUTROPHIL ABS# 4.89 10x3/uL (1.56-6.13); NEUTROPHILS 78.1 % (40-80); PLATELET COUNT 144 10x3/uL (130-400); RBC 3.46 10x6/uL (4.00-5.40); RDW 14.6 % (11.5-14.5)
[2020-08-16 14:02] LABS: WBC 6.3 10x3/uL (4.8-10.8)
[2020-08-16 14:10] LABS: APTT 23.6 SECONDS (22.8-39.4); CALC OSMOLALITY 277 mosm/kg (275-300); CALCIUM 9.2 mg/dL (8.5-10.1); CHLORIDE - SERUM 94 mmol/L (98-107); CREATININE - SERUM 0.5 mg/dL (0.6-1.3); GLUCOSE 104 mg/dL (74-106); INR 0.95 (0.85-1.17); PROTIME 11.7 SECONDS (11.6-15.0); SODIUM 140 mmol/L (136-145); UREA NITROGEN 10 mg/dL (7-18); eGFR NON AFRICAN AMERICAN > 90 mL/min (90-120)
[2020-08-16 14:12] LABS: POTASSIUM - SERUM 3.4 mmol/L (3.5-5.1)
[2020-08-16 14:16] LABS: CARBON DIOXIDE 48.9 mmol/L (21.0-32.0)
[2020-08-16 14:27] LABS: ALBUMIN 2.9 g/dL (3.4-5.0); ALKALINE PHOSPHATASE 177 U/L (30-120); ALT (SGPT) 163 U/L (10-68); BILIRUBIN - TOTAL 0.55 mg/dL (0.2-1.3); CKMB 1.8 U/L (0.0-3.6); CREATINE KINASE 34 UL (21-215); PRO BNP 1041 pg/mL (0-125); PROTEIN - SERUM 5.8 g/dL (6.4-8.2)
[2020-08-16 14:37] LABS: TROPONIN-I < 0.017 ng/mL (0.000-0.060)
[2020-08-16 15:00] VITALS: BP 143/77
--- NOTE | 2020-08-16 17:00 | NUR ---
ASSISTED PATIENT TO AMBULATE TO BR WITH PORTABLE O2. BACK TO BED AND BI-PAP RESUMED.
--- NOTE | 2020-08-16 17:49 | NUR ---
REPORT CALLED TO VIKAS MOROCHO II. RT NOTIFIED TO MOVE BI-PAP.
--- NOTE | 2020-08-16 18:00 | NUR ---
PT ALERT AND ORIENTED, ARIVED ON FLOOR VIA WHEELCHIAR. PT IS IN SAME CLOTHES SHE WAS IN WHEN SHE WAS DISCHARGED PREVIOUS DAY. BIPAP IN ROOM, O2 IN ROOM BEING USED APPROPRIATELY. CL IN REACH, SRX2.
--- NOTE | 2020-08-16 19:54 | NUR ---
INITIAL ROUNDS AND ASSESSMENT COMPLETED. PT SITTING IN BED. IV TO LEFT WRIST IS RED AND SWOLLEN. DISCONTINUED IV AND WILL RESITE. O2 @ 4L/NC WITH SHALLOW, SLIGHTLY LABORED RESPIRATIONS. PT C/O NOT HAVING HER REGULAR MEDICATIONS. EXPLAINED THAT ALL MEDS HAVE BEEN ORDERED AND ARE DUE AT BEDTIME.
[2020-08-17 00:36] VITALS: BP 164/75; Ht 157.5 cm; Wt 50.0 kg
--- NOTE | 2020-08-17 04:46 | NUR ---
IV ATTEMPT WITH NO SUCCESS.
[2020-08-17 05:43] VITALS: BP 154/76
--- NOTE | 2020-08-17 06:08 | NUR ---
22G IV SITED TO LEFT HAND X 2 ATTEMPTS. PT RESTING. NO DISTRESS.
--- NOTE | 2020-08-17 06:45 | NUR ---
BEDSIDE REPORT GIVEN. IV TO LEFT HAND PATENT 22 G. UP AT MICHAEL PATIENT RESTING COMFORTABLE. NO CURRENT PAIN OR DISTRESS. BIPAP AT 28% O2 VIA NC AT 4L.
[2020-08-17 07:05] LABS: BASOPHILS 0 % (0-2); EOSINOPHILS 1.5 % (0-7); HEMATOCRIT 32.1 % (36.0-48.0); HEMOGLOBIN 9.2 g/dL (12-16); LYMPHOCYTE ABS# 0.85 10x3/uL (1.18-3.74); LYMPHOCYTES 26.3 % (15-50); MCH 28.5 pg (26.0-34.0); MCHC 28.7 g/dL (31.0-37.0); MCV 99.4 fL (80.0-100.0); MEAN PLATELET VOLUME 9.7 fL (7.4-10.4); MONOCYTES 11.1 % (2-11); NEUTROPHIL ABS# 1.97 10x3/uL (1.56-6.13); NEUTROPHILS 61.1 % (40-80); PLATELET COUNT 131 10x3/uL (130-400); RBC 3.23 10x6/uL (4.00-5.40); RDW 14.5 % (11.5-14.5)
[2020-08-17 07:06] LABS: WBC 3.2 10x3/uL (4.8-10.8)
[2020-08-17 07:46] LABS: ALBUMIN 2.3 g/dL (3.4-5.0); ALKALINE PHOSPHATASE 142 U/L (30-120); BILIRUBIN - TOTAL 0.57 mg/dL (0.2-1.3); CALCIUM 8.7 mg/dL (8.5-10.1); CHLORIDE - SERUM 97 mmol/L (98-107); MAGNESIUM - SERUM 1.9 mg/dL (1.8-2.4); PHOSPHOROUS 4.4 mg/dL (2.5-4.9); POTASSIUM - SERUM 3.4 mmol/L (3.5-5.1); PROTEIN - SERUM 4.8 g/dL (6.4-8.2); SODIUM 142 mmol/L (136-145); UREA NITROGEN 9 mg/dL (7-18)
[2020-08-17 07:54] LABS: ALT (SGPT) 122 U/L (10-68); CALC OSMOLALITY 279 mosm/kg (275-300); CARBON DIOXIDE 41.3 mmol/L (21.0-32.0); CREATININE - SERUM 0.3 mg/dL (0.6-1.3); GLUCOSE 61 mg/dL (74-106); eGFR NON AFRICAN AMERICAN > 90 mL/min (90-120)
[2020-08-17 08:43] VITALS: BP 157/75
--- NOTE | 2020-08-17 09:00 | NUR ---
PATIENT RESPONDED TO VERBAL STIMULI, CRITICAL LAB CALLED WITH GLUCOSE AT [address] PATIENT AND HAD HER DRINK OJ AND SUGAR. RESP EVEN AND UN LABORED ON 4L O2 VIA NASAL CANNULA. BIPAP IN USE WHEN PATIENT IS ASLEEP AT 28%. MEDICATIONS DISCUSSED AND ADMINISTERED. MEDICATION TAKEN WHOLE. LUNG SOUNDS WITH SLIGHT WHEEZING TO MID LOBES BILATERALLY. HEART SOUNDS REGULAR RATE AND RYTHYM. PATIENT IS UP AT MICHAEL. SALINE LOCK IV TO L HAND 22G. PATENT FLUSHES WELL.
[2020-08-17 12:00] VITALS: BP 116/62
--- NOTE | 2020-08-17 13:53 | NUR ---
I have reviewed this patient and I concur with the Shift Assessment completed by the Licensed Practical Nurse today this shift.
[2020-08-17 16:01] VITALS: BP 131/67
--- NOTE | 2020-08-17 19:59 | NUR ---
INITIAL ROUNDS AND ASSESSMENT COMPLETED. PT RESTING IN BED. O2 @ 4L/NC IN PLACE. SOB WME. NO DISTRESS. STILL WANTING IV MORPHINE, /HEEL COVER SPLITTER HAVE BOTH TOLD PT NO IV MORPHINE, ORAL PAIN MEDS ONLY. CALL LIGHT IN REACH.
[2020-08-17 20:00] VITALS: BP 122/67
--- NOTE | 2020-08-17 22:43 | NUR ---
ROUSES UP EASILY. ALL BEDTIME MEDS GIVEN. ON O2 @ 4L/NC. PT WILL HAVE BIPAP PLACED ON HER AFTER NEXT UPDRAFT PER RESPIRATORY. CALL LIGHT IN REACH. NO DISTRESS.
[2020-08-18 01:26] VITALS: BP 124/64
--- NOTE | 2020-08-18 01:58 | NUR ---
PT RESTING IN BED WITH NO DISTRESS. BIPAP IN PLACE. CALL LIGHT IN REACH.
[2020-08-18 05:25] VITALS: BP 139/54
[2020-08-18 06:30] LABS: BASOPHILS 0 % (0-2); EOSINOPHILS 0.7 % (0-7); HEMATOCRIT 31.7 % (36.0-48.0); HEMOGLOBIN 9.6 g/dL (12-16); IMMATURE GRANULOCYTES 0.2 % (0-5); LYMPHOCYTE ABS# 0.77 10x3/uL (1.18-3.74); LYMPHOCYTES 18.4 % (15-50); MCHC 30.3 g/dL (31.0-37.0); MEAN PLATELET VOLUME 9.9 fL (7.4-10.4); MONOCYTES 12.7 % (2-11); NEUTROPHIL ABS# 2.84 10x3/uL (1.56-6.13); PLATELET COUNT 152 10x3/uL (130-400); RBC 3.31 10x6/uL (4.00-5.40); RDW 14.6 % (11.5-14.5)
[2020-08-18 06:34] LABS: MCV 95.8 fL (80.0-100.0); WBC 4.2 10x3/uL (4.8-10.8)
[2020-08-18 06:40] LABS: ALBUMIN 2.5 g/dL (3.4-5.0); ALKALINE PHOSPHATASE 132 U/L (30-120); ALT (SGPT) 94 U/L (10-68); BILIRUBIN - TOTAL 0.39 mg/dL (0.2-1.3); CALCIUM 8.7 mg/dL (8.5-10.1); CHLORIDE - SERUM 98 mmol/L (98-107); PHOSPHOROUS 4.3 mg/dL (2.5-4.9); POTASSIUM - SERUM 3.3 mmol/L (3.5-5.1); PROTEIN - SERUM 5.2 g/dL (6.4-8.2); SODIUM 138 mmol/L (136-145)
[2020-08-18 07:27] VITALS: BP 144/89
[2020-08-18 07:34] LABS: CALC OSMOLALITY 278 mosm/kg (275-300); CREATININE - SERUM 0.5 mg/dL (0.6-1.3); GLUCOSE 142 mg/dL (74-106); UREA NITROGEN 14 mg/dL (7-18); eGFR NON AFRICAN AMERICAN > 90 mL/min (90-120)
[2020-08-18 07:41] LABS: CARBON DIOXIDE 40.5 mmol/L (21.0-32.0)
--- NOTE | 2020-08-18 08:24 | NUR ---
AM MEDS GIVEN AT THIS TIME WITH FRESH WATER. PT LYING IN BED WITH HOB RAISED WATCHING TV, PT AWAKE AND ALERT. DENIES ANY FURTHER NEEDS AT THIS TIME. CLWR.
--- NOTE | 2020-08-18 11:42 | NUR ---
PT LYING ON LEFT SIDE, RR EVEN NON LABORED , O2 IN PLACE. SCHEDULED MEDS GIVEN AT THIS TIME, PT DENIES ANY FURTHER NEEDS. CLWR.
[2020-08-18] MEDS ORDERED: PAXIL30 MG PO (12:06)
--- NOTE | 2020-08-18 12:59 | NUR ---
PT ASKS REGARDING TRANSPORTATION TO GET HOME. SPOKE WITH HOTEL YARDPERSON REGARDING A TAXI RIDE HOME. PT HAS PORTABLE O2 IN ROOM FROM HOME.
--- NOTE | 2020-08-18 13:27 | MORECARE ---
CASE MANAGEMENT DISCHARGE SUMMARY PATIENT: LANE ONEAL UNIT: [id number] ADM DATE: 08/17/20 AGE: 60 : 62 SEX: F ROOM/BED: D.7524 AUTHOR: MERA,DOC PHYSICIAN: REFERRING PHYSICIAN: LORI REBOLLEDO MD DATE OF SERVICE: 08/18/20 Case Management Discharge Planning Summary COMMENTS ENTERED DATE: 08/18/20 13:25 CT COMMENT TYPE: Discharge Planning REVIEWER: Ary Roy PATIENT TO DC TO HOME TODAY. CM HAS SET HER UP WITH A TAXI TO HOME. PATIENT HAS PORTABLE OXYGEN AT BEDSIDE. CM TO FOLLOW AND ASSIST NEEDED. DCP REVIEW SUMMARY ANTICIPATED D/C DATE: EXPECTED LOS : CASE STATUS: DCP Initiated INITIAL REVIEW: 08/16/2020 INITIAL REVIEWER: Ary Roy FINAL DISCHARGE DISPOSITION: : FINAL REVIEWER: FINAL REVIEW DATE: DCP Focus Questions & Answers QUESTION: ANSWER : PATIENT: LANE ONEAL ENCOUNTER: [id number] MEDICAL RECORD#: [id number] ADMISSION DATE: 08/17/2020 DISCHARGE DATE: ATTENDING MD: LORI AGUAYO : AGE: 60 MARITAL STATUS: D DC PLAN ID: [id number] FACILITY: [facility] PRINTED ON: 08/18/20 13:27 CT All edits/amendments must be made on the electronic document DICTATION DATE: 08/18/20 132 SUPERVISOR PHOTOSTAT: TAISHA 08/18/20 1327 RPT#: [id number] DC DATE: STATUS: ADM IN [facility] [address] [place] [address] END OF REPORT
--- NOTE | 2020-08-18 13:37 | NUR ---
D/C INSTRUCTIONS GIVEN TO PT AT THIS TIME. PRESCRIPTIONS GIVEN TO PT AT THIS TIME. EDUCATION PROVIDED. PT STATES UNDERSTANDING. IV D/C, CATHETER INTACT, DRESSING APPLIED. WILL CALL TAXI SERVICE FOR TRANSPORTATION HOME.
--- NOTE | 2020-08-18 13:44 | NUR ---
CALLED TAXI SERVICE AT THIS TIME
--- NOTE | 2020-08-18 16:57 | NUR ---
PT WHEELED TO TAXI AT THIS TIME ALL BELONGINGS WITH PT TIME OF D/C INCLUDING HOME PORTABLE O2. NO DISTRESS NOTED ON DEPARTURE.
--- NOTE | 2020-08-18 16:59 | MORECARE ---
CASE MANAGEMENT DISCHARGE SUMMARY PATIENT: LANE ONEAL UNIT: [id number] ADM DATE: 08/17/20 AGE: 60 : 62 SEX: F ROOM/BED: D.8944 AUTHOR: MERA,DOC PHYSICIAN: REFERRING PHYSICIAN: LORI REBOLLEDO MD DATE OF SERVICE: 08/18/20 Case Management Discharge Planning Summary COMMENTS ENTERED DATE: 08/18/20 13:25 CT COMMENT TYPE: Discharge Planning REVIEWER: Ary Roy PATIENT TO DC TO HOME TODAY. CM HAS SET HER UP WITH A TAXI TO HOME. PATIENT HAS PORTABLE OXYGEN AT BEDSIDE. CM TO FOLLOW AND ASSIST NEEDED. DCP REVIEW SUMMARY ANTICIPATED D/C DATE: EXPECTED LOS : CASE STATUS: DCP Initiated INITIAL REVIEW: 08/16/2020 INITIAL REVIEWER: Ary Roy FINAL DISCHARGE DISPOSITION: : FINAL REVIEWER: FINAL REVIEW DATE: DCP Focus Questions & Answers QUESTION: ANSWER : PATIENT: LANE ONEAL ENCOUNTER: [id number] MEDICAL RECORD#: [id number] ADMISSION DATE: 08/17/2020 DISCHARGE DATE: 08/18/2020 ATTENDING MD: LORI AGUAYO : AGE: 60 MARITAL STATUS: D DC PLAN ID: [id number] FACILITY: [facility] PRINTED ON: 08/18/20 16:59 CT All edits/amendments must be made on the electronic document DICTATION DATE: 08/18/201658 HAND ETCHER HELPER: DM 08/18/201658 RPT#: [id number] DC DATE:08/18/20 STATUS: DIS IN [facility] [address] [place] [address] END OF REPORT
== END 2020-08-18 16:58 | disposition home or self-care (01) | DRG 189 ==
LOC: D.ER 12:49 → D.M2 16:09 → OBSVTIME 16:23 → D.M2 08-17 20:23
PROVIDERS: Family Medicine; ADMIT Emergency Medicine; ATTEND Emergency Medicine
PROC: 5A09357 Assistance with Respiratory Ventilation, Less than 24 Consecutive Hours, Continuous Positive Airway Pressure (ICD-10-PCS; principal; 2020-08-17)
DX: J96.22 Acute and chronic respiratory failure with hypercapnia (principal); J44.1 Chronic obstructive pulmonary disease with (acute) exacerbation; E87.2 Acidosis; J96.21 Acute and chronic respiratory failure with hypoxia; E16.2 Hypoglycemia, unspecified; G47.33 Obstructive sleep apnea (adult) (pediatric); Z86.711 Personal history of pulmonary embolism; I10 Essential (primary) hypertension; K21.9 Gastro-esophageal reflux disease without esophagitis; F41.8 Other specified anxiety disorders; M19.90 Unspecified osteoarthritis, unspecified site; K27.9 Peptic ulcer, site unspecified, unspecified as acute or chronic, without hemorrhage or perforation; G89.29 Other chronic pain; I48.91 Unspecified atrial fibrillation

== ENCOUNTER 2020-09-10 00:42 | Inpatient (IN) | payer MEDICARE, MEDICAID ==
[2020-09-10] VITALS (10 sets, daily range): BP systolic 102–157; BP diastolic 56–83; BMI 18.8
[~2020-09-10] VITALS: Ht 157.5 cm; Wt 46.7 kg
[~2020-09-10 00:42] MED LIST changes: +PAXIL30 MG PO
[2020-09-10 01:10] LABS: EOSINOPHILS 0.2 % (0-7); HEMATOCRIT 39.8 % (36.0-48.0); LYMPHOCYTES 25.6 % (15-50); MCH 29.4 pg (26.0-34.0); MCHC 32.7 g/dL (31.0-37.0); MCV 89.8 fL (80.0-100.0); MEAN PLATELET VOLUME 7.3 fL (7.4-10.4); MONOCYTES 11.1 % (2-11); NEUTROPHILS 62.1 % (40-80); RBC 4.43 10x6/uL (4.00-5.40); WBC 7.4 10x3/uL (4.8-10.8)
[2020-09-10 01:15] LABS: CALC OSMOLALITY 265 mosm/kg (275-300); CALCIUM 8.7 mg/dL (8.5-10.1); CHLORIDE - SERUM 91 mmol/L (98-107); CREATININE - SERUM 0.5 mg/dL (0.6-1.3); PLATELET COUNT 228 10x3/uL (130-400); POTASSIUM - SERUM 4.2 mmol/L (3.5-5.1); SODIUM 135 mmol/L (136-145); UREA NITROGEN 7 mg/dL (7-18); eGFR NON AFRICAN AMERICAN > 90 mL/min (90-120)
[2020-09-10 01:16] LABS: GLUCOSE 64 mg/dL (74-106)
[2020-09-10 01:30] LABS: ALBUMIN 3.3 g/dL (3.4-5.0); ALKALINE PHOSPHATASE 113 U/L (30-120); ALT (SGPT) 28 U/L (10-68); BILIRUBIN - TOTAL 0.75 mg/dL (0.2-1.3); C-REACTIVE PROTEIN 0.3 mg/dL (0.0-0.9); MAGNESIUM - SERUM 1.4 mg/dL (1.8-2.4); PRO BNP 81 pg/mL (0-125); PROTEIN - SERUM 6.5 g/dL (6.4-8.2)
[2020-09-10 01:31] LABS: TROPONIN-I < 0.017 ng/mL (0.000-0.060)
--- NOTE | 2020-09-10 05:18 | NUR ---
PT OBSERVED LAYING ON RIGHT SIDE, NAD NOTED. EVEN RISE AND FALL OF CHEST NOTED. PT REMAINS ON CARDIAC MONITORING SINUS TACHYCARDIA RATE OF 114.
--- NOTE | 2020-09-10 06:04 | NUR ---
PT ALERT AND ORIENTED, TAKES PILL WHOLE. UPDATED ON PLAN OF CARE.
--- NOTE | 2020-09-10 07:06 | NUR ---
REPORT GIVEN TO DEIDRE LAWSON AT THIS TIME.
[2020-09-10 10:34] LABS: CKMB 2.4 U/L (0.0-3.6); CREATINE KINASE 35 UL (21-215); TROPONIN-I < 0.017 ng/mL (0.000-0.060)
[2020-09-10 14:56] LABS: CKMB 1.9 U/L (0.0-3.6); CREATINE KINASE 30 UL (21-215); TROPONIN-I < 0.017 ng/mL (0.000-0.060)
--- NOTE | 2020-09-10 16:51 | NUR ---
PATIENT RECEIVED TO ROOM. ALERT AND ORIENTED X4, ON 3 L OF O2, IV IN RT AC SL, PATIENT IS ON CLD, ASKED IF SHE COULD BE ON A REG DIET THEN ASKED IF SHE CAN SPEAK WITH ROUTER SETTER CAMPUS COORDINATOR TO DISCUSS MEDICATION OPTIONS, WILL PAGE ROUTER SETTER CAMPUS COORDINATOR. MOTHER AT BEDSIDE, NO OTHER NEEDS VOUCED, CONTINUE WITH PLAN OF CARE
--- NOTE | 2020-09-10 19:30 | NUR ---
PT IN BED, AAO X 3, RESP EVEN AND UNLABORED, NO DISTRESS NOTED, CL IN REACH, SR UP X 2.
[2020-09-10 21:14] LABS: CKMB 1.4 U/L (0.0-3.6); CREATINE KINASE 30 UL (21-215); TROPONIN-I < 0.017 ng/mL (0.000-0.060)
[2020-09-11] VITALS: BP 126/75
[2020-09-11 04:00] VITALS: BP 113/62
--- NOTE | 2020-09-11 05:11 | NUR ---
I have reviewed this patient and I concur with the Shift Assessment completed by the Licensed Practical Nurse today this shift.
[2020-09-11 06:20] LABS: BASOPHILS 0.2 % (0-2); EOSINOPHILS 0.1 % (0-7); HEMOGLOBIN 12.6 g/dL (12-16); LYMPHOCYTES 16.2 % (15-50); MCHC 32.3 g/dL (31.0-37.0); MCV 89.7 fL (80.0-100.0); MEAN PLATELET VOLUME 7.9 fL (7.4-10.4); MONOCYTES 14.6 % (2-11); NEUTROPHILS 68.9 % (40-80); PLATELET COUNT 251 10x3/uL (130-400); RBC 4.35 10x6/uL (4.00-5.40); RDW 14.5 % (11.5-14.5)
[2020-09-11 06:51] LABS: ALBUMIN 3.1 g/dL (3.4-5.0); ALKALINE PHOSPHATASE 94 U/L (30-120); ALT (SGPT) 21 U/L (10-68); BILIRUBIN - TOTAL 0.52 mg/dL (0.2-1.3); CALCIUM 8.5 mg/dL (8.5-10.1); CHLORIDE - SERUM 96 mmol/L (98-107); CREATININE - SERUM 0.6 mg/dL (0.6-1.3); MAGNESIUM - SERUM 1.5 mg/dL (1.8-2.4); SODIUM 138 mmol/L (136-145); eGFR NON AFRICAN AMERICAN > 90 mL/min (90-120)
[2020-09-11 07:37] LABS: CALC OSMOLALITY 276 mosm/kg (275-300); GLUCOSE 98 mg/dL (74-106); POTASSIUM - SERUM 3.5 mmol/L (3.5-5.1); UREA NITROGEN 14 mg/dL (7-18)
[2020-09-11 07:40] LABS: CARBON DIOXIDE 42.6 mmol/L (21.0-32.0)
[2020-09-11 10:13] VITALS: BP 106/69
[2020-09-11 13:10] VITALS: BP 99/59
[2020-09-11 16:57] VITALS: BP 106/69
--- NOTE | 2020-09-11 19:30 | NUR ---
PT IN BED, AAO X 4, RESP EVEN AND UNLABORED, NO DISTRESS NOTED, CL IN REACH, SR UP X 2.
[2020-09-11 20:00] VITALS: BP 139/77
[2020-09-12] VITALS: BP 115/65
[2020-09-12 04:00] VITALS: BP 126/73
--- NOTE | 2020-09-12 04:55 | NUR ---
I have reviewed this patient and I concur with the Shift Assessment completed by the Licensed Practical Nurse today this shift.
[2020-09-12 06:56] LABS: BASOPHILS 0.1 % (0-2); EOSINOPHILS 0 % (0-7); HEMATOCRIT 39.3 % (36.0-48.0); HEMOGLOBIN 12.8 g/dL (12-16); LYMPHOCYTES 9.8 % (15-50); MCH 29.1 pg (26.0-34.0); MCHC 32.5 g/dL (31.0-37.0); MCV 89.6 fL (80.0-100.0); MEAN PLATELET VOLUME 8.2 fL (7.4-10.4); MONOCYTES 6.2 % (2-11); NEUTROPHILS 83.9 % (40-80); PLATELET COUNT 237 10x3/uL (130-400); RBC 4.39 10x6/uL (4.00-5.40); RDW 14.3 % (11.5-14.5)
[2020-09-12 07:00] LABS: WBC 6.3 10x3/uL (4.8-10.8)
[2020-09-12 07:14] LABS: ALBUMIN 3.5 g/dL (3.4-5.0); ALKALINE PHOSPHATASE 96 U/L (30-120); BILIRUBIN - TOTAL 0.43 mg/dL (0.2-1.3); CALC OSMOLALITY 275 mosm/kg (275-300); CHLORIDE - SERUM 93 mmol/L (98-107); CREATININE - SERUM 0.6 mg/dL (0.6-1.3); GLUCOSE 138 mg/dL (74-106); MAGNESIUM - SERUM 1.6 mg/dL (1.8-2.4); PHOSPHOROUS 2.5 mg/dL (2.5-4.9); PROTEIN - SERUM 6.9 g/dL (6.4-8.2); SODIUM 136 mmol/L (136-145); UREA NITROGEN 17 mg/dL (7-18); eGFR NON AFRICAN AMERICAN > 90 mL/min (90-120)
[2020-09-12 07:56] LABS: ALT (SGPT) 27 U/L (10-68); POTASSIUM - SERUM 4.3 mmol/L (3.5-5.1)
[2020-09-12 08:05] LABS: CARBON DIOXIDE 40.2 mmol/L (21.0-32.0)
[2020-09-12 09:51] VITALS: BP 153/82
[2020-09-12 12:51] VITALS: BP 115/61
[2020-09-12 13:47] VITALS: Ht 157.5 cm; Wt 46.7 kg
[2020-09-12 17:03] VITALS: BP 135/70
[2020-09-12 20:45] VITALS: BP 154/76
--- NOTE | 2020-09-13 04:07 | NUR ---
I have reviewed this patient and I concur with the Shift Assessment completed by the Licensed Practical Nurse today this shift.
[2020-09-13 05:15] VITALS: BP 144/80
[2020-09-13 06:47] LABS: BASOPHILS 0 % (0-2); EOSINOPHILS 0 % (0-7); HEMATOCRIT 37.2 % (36.0-48.0); HEMOGLOBIN 12.2 g/dL (12-16); LYMPHOCYTES 8.6 % (15-50); MCH 29.4 pg (26.0-34.0); MCHC 32.7 g/dL (31.0-37.0); MCV 89.8 fL (80.0-100.0); MEAN PLATELET VOLUME 8.2 fL (7.4-10.4); MONOCYTES 7.8 % (2-11); NEUTROPHILS 83.6 % (40-80); PLATELET COUNT 212 10x3/uL (130-400); RBC 4.15 10x6/uL (4.00-5.40); RDW 14.4 % (11.5-14.5); WBC 6.6 10x3/uL (4.8-10.8)
[2020-09-13 07:22] LABS: ALBUMIN 3.3 g/dL (3.4-5.0); ALKALINE PHOSPHATASE 123 U/L (30-120); BILIRUBIN - TOTAL 0.31 mg/dL (0.2-1.3); CALCIUM 8.6 mg/dL (8.5-10.1); CHLORIDE - SERUM 93 mmol/L (98-107); CREATININE - SERUM 0.5 mg/dL (0.6-1.3); MAGNESIUM - SERUM 1.9 mg/dL (1.8-2.4); PHOSPHOROUS 2.8 mg/dL (2.5-4.9); POTASSIUM - SERUM 4.2 mmol/L (3.5-5.1); PROTEIN - SERUM 6.2 g/dL (6.4-8.2); SODIUM 137 mmol/L (136-145); UREA NITROGEN 13 mg/dL (7-18); eGFR NON AFRICAN AMERICAN > 90 mL/min (90-120)
[2020-09-13 07:56] LABS: CALC OSMOLALITY 279 mosm/kg (275-300); GLUCOSE 209 mg/dL (74-106)
[2020-09-13 07:59] LABS: ALT (SGPT) 80 U/L (10-68); CARBON DIOXIDE 43.4 mmol/L (21.0-32.0)
[2020-09-13 09:14] VITALS: BP 154/85
[2020-09-13 17:21] VITALS: BP 116/78
--- NOTE | 2020-09-13 19:49 | NUR ---
PATIENT RESTING IN BED WITH NO S/S OF DISTRESS AND DENIES NEEDS AT THIS TIME. BED IN LOWEST POSITION AND CALL LIGHT IN REACH. ENCOURAGED PATIENT TO CALL WITH NEEDS.
[2020-09-13 20:00] VITALS: BP 120/65
--- NOTE | 2020-09-13 20:58 | NUR ---
ADMINISTERED MEDS PER ORDERS. PATIENT MIRELLA WELL. ENCOURAGED PATIENT TO CALL WITH NEEDS.
[2020-09-14 02:02] VITALS: BP 134/64
[2020-09-14 06:26] LABS: BASOPHILS 0 % (0-2); EOSINOPHILS 0 % (0-7); HEMATOCRIT 42.2 % (36.0-48.0); HEMOGLOBIN 12.6 g/dL (12-16); IMMATURE GRANULOCYTES 0.3 % (0-5); LYMPHOCYTE ABS# 0.52 10x3/uL (1.18-3.74); LYMPHOCYTES 13.1 % (15-50); MCH 28.6 pg (26.0-34.0); MCHC 29.9 g/dL (31.0-37.0); MEAN PLATELET VOLUME 10.6 fL (7.4-10.4); NEUTROPHIL ABS# 3.13 10x3/uL (1.56-6.13); NEUTROPHILS 78.6 % (40-80); PLATELET COUNT 206 10x3/uL (130-400); RBC 4.41 10x6/uL (4.00-5.40); RDW 13.2 % (11.5-14.5)
[2020-09-14 06:27] LABS: MCV 95.7 fL (80.0-100.0)
[2020-09-14 06:42] LABS: ALKALINE PHOSPHATASE 143 U/L (30-120); BILIRUBIN - TOTAL 0.34 mg/dL (0.2-1.3); CALCIUM 8.9 mg/dL (8.5-10.1); CHLORIDE - SERUM 93 mmol/L (98-107); CREATININE - SERUM 0.5 mg/dL (0.6-1.3); GLUCOSE 191 mg/dL (74-106); MAGNESIUM - SERUM 1.9 mg/dL (1.8-2.4); POTASSIUM - SERUM 4.4 mmol/L (3.5-5.1); PROTEIN - SERUM 6.2 g/dL (6.4-8.2); SODIUM 136 mmol/L (136-145); eGFR NON AFRICAN AMERICAN > 90 mL/min (90-120)
[2020-09-14 06:51] LABS: ALT (SGPT) 123 U/L (10-68); CALC OSMOLALITY 278 mosm/kg (275-300); PHOSPHOROUS 3.9 mg/dL (2.5-4.9); UREA NITROGEN 17 mg/dL (7-18)
[2020-09-14 07:44] LABS: ALBUMIN 3.2 g/dL (3.4-5.0)
[2020-09-14 08:04] LABS: CARBON DIOXIDE 43.8 mmol/L (21.0-32.0)
[2020-09-14 09:05] VITALS: BP 154/78
[2020-09-14 12:29] VITALS: BP 120/62
[2020-09-14 13:59] LABS: INR 1.01 (0.85-1.17); PROTIME 12.3 SECONDS (11.6-15.0)
[2020-09-14 18:10] VITALS: BP 158/78
[2020-09-14 20:00] VITALS: BP 142/64
[2020-09-15] VITALS: BP 126/59
--- NOTE | 2020-09-15 03:00 | NUR ---
I have reviewed this patient and I concur with the Shift Assessment completed by the Licensed Practical Nurse today this shift.
[2020-09-15 04:00] VITALS: BP 147/72
[2020-09-15 07:14] LABS: ALBUMIN 2.9 g/dL (3.4-5.0); ALKALINE PHOSPHATASE 134 U/L (30-120); ALT (SGPT) 96 U/L (10-68); BILIRUBIN - TOTAL 0.31 mg/dL (0.2-1.3); CALCIUM 8.8 mg/dL (8.5-10.1); CHLORIDE - SERUM 95 mmol/L (98-107); CREATININE - SERUM 0.5 mg/dL (0.6-1.3); MAGNESIUM - SERUM 2.1 mg/dL (1.8-2.4); PHOSPHOROUS 3.7 mg/dL (2.5-4.9); POTASSIUM - SERUM 4.9 mmol/L (3.5-5.1); PROTEIN - SERUM 5.7 g/dL (6.4-8.2); SODIUM 134 mmol/L (136-145); UREA NITROGEN 19 mg/dL (7-18); eGFR NON AFRICAN AMERICAN > 90 mL/min (90-120)
[2020-09-15 07:15] LABS: BASOPHILS 0.1 % (0-2); EOSINOPHILS 0 % (0-7); HEMATOCRIT 35.8 % (36.0-48.0); HEMOGLOBIN 11.7 g/dL (12-16); LYMPHOCYTES 12.6 % (15-50); MCH 29.6 pg (26.0-34.0); MCHC 32.6 g/dL (31.0-37.0); MEAN PLATELET VOLUME 8.5 fL (7.4-10.4); NEUTROPHILS 78.3 % (40-80); PLATELET COUNT 198 10x3/uL (130-400); RBC 3.95 10x6/uL (4.00-5.40); RDW 14.3 % (11.5-14.5); WBC 4.4 10x3/uL (4.8-10.8)
[2020-09-15 07:26] LABS: MCV 90.6 fL (80.0-100.0)
[2020-09-15 07:52] LABS: CALC OSMOLALITY 278 mosm/kg (275-300); GLUCOSE 264 mg/dL (74-106)
[2020-09-15 07:54] LABS: CARBON DIOXIDE 41.8 mmol/L (21.0-32.0)
--- NOTE | 2020-09-15 08:12 | NUR ---
CALL FROM LAB WITH CRITICAL VALUES. RESULS TO LAURA PER CRITICAL LAB SHEETS.
--- NOTE | 2020-09-15 08:35 | NUR ---
REC'D CRITICAL LABS OF C02 @ 41.8 ON TODAY WITH 43.8 ON YESTERDAY. NO NEW ORDERS AT THIS TIME.
[2020-09-15 09:09] VITALS: BP 155/81
--- NOTE | 2020-09-15 09:28 | NUR ---
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 C/L IN REACH AT BEDSIDE.
[2020-09-15 13:30] VITALS: BP 142/64
--- NOTE | 2020-09-15 14:55 | NUR ---
Nutrition follow-up: Diet order: Regular PO Intake 50-75% of meals Labs reviewed Wt: 102# +BM PO Intake good at this time + fluid balance Pt currently meeting nutrition goals RDN will follow-up on pts continued progress in 3-5 days.
--- NOTE | 2020-09-15 14:55 | NUR ---
I have reviewed this patient and I concur with the Shift Assessment completed by the Licensed Practical Nurse today this shift.
[2020-09-15 17:46] VITALS: BP 148/94
[2020-09-15 20:00] VITALS: BP 123/66
[2020-09-16] VITALS: BP 142/82
[2020-09-16 04:00] VITALS: BP 128/62
--- NOTE | 2020-09-16 07:30 | NUR ---
SITTING UP IN BED WITH EYES OPEN, ALERT AND ORIENTED. CURRENTLY RCVING 2L VIA NC. NO CURRENT S/S OF DISTRESS AT THIS TIME, DENIES CURRENT NEEDS, WILL CONT TO MONITOR.
[2020-09-16 09:07] VITALS: BP 123/71
[2020-09-16 17:08] VITALS: BP 116/62
[2020-09-16 20:00] VITALS: BP 123/59
[2020-09-17] VITALS: BP 130/59
[2020-09-17 04:00] VITALS: BP 139/67
--- NOTE | 2020-09-17 06:26 | NUR ---
I have reviewed this patient and I concur with the Shift Assessment completed by the Licensed Practical Nurse today this shift.
[2020-09-17 06:28] LABS: BASOPHILS 0 % (0-2); EOSINOPHILS 0 % (0-7); HEMATOCRIT 39.1 % (36.0-48.0); HEMOGLOBIN 12.6 g/dL (12-16); LYMPHOCYTES 9.1 % (15-50); MCH 29.4 pg (26.0-34.0); MCHC 32.3 g/dL (31.0-37.0); MCV 91.1 fL (80.0-100.0); NEUTROPHILS 85.9 % (40-80); RBC 4.29 10x6/uL (4.00-5.40); RDW 14.4 % (11.5-14.5); WBC 5.8 10x3/uL (4.8-10.8)
[2020-09-17 06:37] LABS: PLATELET COUNT 255 10x3/uL (130-400)
[2020-09-17 06:39] LABS: ALBUMIN 3.2 g/dL (3.4-5.0); ALKALINE PHOSPHATASE 151 U/L (30-120); ALT (SGPT) 149 U/L (10-68); BILIRUBIN - TOTAL 0.37 mg/dL (0.2-1.3); CALCIUM 8.8 mg/dL (8.5-10.1); CHLORIDE - SERUM 91 mmol/L (98-107); CREATININE - SERUM 0.6 mg/dL (0.6-1.3); POTASSIUM - SERUM 4.7 mmol/L (3.5-5.1); PROTEIN - SERUM 6.3 g/dL (6.4-8.2); SODIUM 132 mmol/L (136-145); UREA NITROGEN 22 mg/dL (7-18); eGFR NON AFRICAN AMERICAN > 90 mL/min (90-120)
[2020-09-17 07:48] LABS: CALC OSMOLALITY 284 mosm/kg (275-300); GLUCOSE 397 mg/dL (74-106)
[2020-09-17 07:49] LABS: CARBON DIOXIDE 41.4 mmol/L (21.0-32.0)
[2020-09-17 08:06] VITALS: BP 135/79
--- NOTE | 2020-09-17 08:08 | NUR ---
0700 BEDSIDE SHIFT REPORT RECEIVED AWAKE IN BED LYING ON RIGHT SIDE WEARING CPAP O2 AT 3L/NC WITH HUMIDITY LEFT ARM AC WITH NS INFUSING AT 10ML VOICES NO COMPLAINTS AT THIS TIME
[2020-09-17 12:36] VITALS: BP 142/75
[2020-09-17 16:18] VITALS: BP 116/66
[2020-09-17 20:00] VITALS: BP 167/72
[2020-09-18] VITALS: BP 157/74
[2020-09-18 05:15] LABS: BASOPHILS 0.1 % (0-2); EOSINOPHILS 0 % (0-7); HEMATOCRIT 39.2 % (36.0-48.0); HEMOGLOBIN 12.8 g/dL (12-16); LYMPHOCYTES 11.5 % (15-50); MCH 29.7 pg (26.0-34.0); MCHC 32.7 g/dL (31.0-37.0); MCV 90.9 fL (80.0-100.0); MEAN PLATELET VOLUME 7.3 fL (7.4-10.4); NEUTROPHILS 82.4 % (40-80); PLATELET COUNT 299 10x3/uL (130-400); RBC 4.32 10x6/uL (4.00-5.40); RDW 14.5 % (11.5-14.5); WBC 4.9 10x3/uL (4.8-10.8)
[2020-09-18 05:42] LABS: ALBUMIN 3.4 g/dL (3.4-5.0); ALKALINE PHOSPHATASE 140 U/L (30-120); ALT (SGPT) 131 U/L (10-68); BILIRUBIN - TOTAL 0.26 mg/dL (0.2-1.3); CALCIUM 9.1 mg/dL (8.5-10.1); CHLORIDE - SERUM 94 mmol/L (98-107); CREATININE - SERUM 0.6 mg/dL (0.6-1.3); POTASSIUM - SERUM 4.9 mmol/L (3.5-5.1); PROTEIN - SERUM 6.5 g/dL (6.4-8.2); SODIUM 135 mmol/L (136-145); UREA NITROGEN 18 mg/dL (7-18); eGFR NON AFRICAN AMERICAN > 90 mL/min (90-120)
[2020-09-18 05:48] LABS: CALC OSMOLALITY 283 mosm/kg (275-300); GLUCOSE 310 mg/dL (74-106)
[2020-09-18 05:50] LABS: CARBON DIOXIDE 46.1 mmol/L (21.0-32.0)
[2020-09-18 08:41] VITALS: BP 122/67
--- NOTE | 2020-09-18 09:32 | NUR ---
patient asked to be taken off pt list she is walking around on her own only needs to carry o2 with her
[2020-09-18] MEDS ORDERED: PREDNISONE10 MG PO (13:25)
[2020-09-18 13:42] VITALS: BP 124/59
--- NOTE | 2020-09-18 14:43 | MORECARE ---
CASE MANAGEMENT DISCHARGE SUMMARY PATIENT: LANE ONEAL UNIT: [id number] ADM DATE: 09/11/20 AGE: 60 : 62 SEX: F ROOM/BED: D.2240 AUTHOR: MERADOC PHYSICIAN: REFERRING PHYSICIAN: PETTY LAY MD DATE OF SERVICE: 09/18/20 Case Management Discharge Planning Summary DCP REVIEW SUMMARY ANTICIPATED D/C DATE: EXPECTED LOS : CASE STATUS: DCP Initiated INITIAL REVIEW: 09/10/2020 INITIAL REVIEWER: Ary Roy FINAL DISCHARGE DISPOSITION: : FINAL REVIEWER: FINAL REVIEW DATE: DCP Focus Questions & Answers QUESTION: ANSWER : PATIENT: LANE ONEAL ENCOUNTER: [id number] MEDICAL RECORD#: [id number] ADMISSION DATE: 09/11/2020 DISCHARGE DATE: ATTENDING MD: PETTY BOSS : AGE: 60 MARITAL STATUS: D DC PLAN ID: [id number] FACILITY: [facility] PRINTED ON: 09/18/20 14:43 CT All edits/amendments must be made on the electronic document DICTATION DATE: 09/18/201442 LABOR RELATIONS SPECIALIST: DM 09/18/20 144 RPT#: [id number] DC DATE: STATUS: ADM IN [facility] [address] [place] [address] END OF REPORT
--- NOTE | 2020-09-18 14:56 | MORECARE ---
CASE MANAGEMENT DISCHARGE SUMMARY PATIENT: LANE ONEAL UNIT: [id number] ADM DATE: 09/11/20 AGE: 60 : 62 SEX: F ROOM/BED: D.2240 AUTHOR: MERA,DOC PHYSICIAN: REFERRING PHYSICIAN: PETTY LAY MD DATE OF SERVICE: 09/18/20 Case Management Discharge Planning Summary COMMENTS ENTERED DATE: 09/18/20 14:50 CT COMMENT TYPE: Discharge Planning REVIEWER: Ary Roy CM met with patient at bedside after obtaining verbal consent. CM discussed availability / needs of home health, REHAB and medical equipment. Patient states has oxygen with [employer] and has her portable tank here with her. States no other medical equipment needed. Also states is current with [facility]. IMM signed and we will get her a taxi to home. CM to follow and assist as needed. DCP REVIEW SUMMARY ANTICIPATED D/C DATE: EXPECTED LOS : CASE STATUS: DCP Initiated INITIAL REVIEW: 09/10/2020 INITIAL REVIEWER: Ary Roy FINAL DISCHARGE DISPOSITION: : FINAL REVIEWER: FINAL REVIEW DATE: DCP Focus Questions & Answers DCP Screen QUESTION: ANSWER High Risk Factors: : Polypharmacy (greater than 10 meds) DCP Evaluation QUESTION: ANSWER Patient's ability to cope with chronic illness : d. No chronic illness Would patient like to participate in any Care Coordination programs (if applicable): : Not applicable Mental health screen: : No mental health history DCP Re-evaluation QUESTION: ANSWER Would patient like to participate in any Care Coordination programs (if applicable): : Not applicable PATIENT: LANE ONEAL ENCOUNTER: [id number] MEDICAL RECORD#: [id number] ADMISSION DATE: 09/11/2020 DISCHARGE DATE: ATTENDING MD: PETTY BOSS : AGE: 60 MARITAL STATUS: D DC PLAN ID: [id number] FACILITY: [facility] PRINTED ON: 09/18/20 14:55 CT All edits/amendments must be made on the electronic document DICTATION DATE: 09/18/201454 HEAVY EQUIPMENT SERVICE MANAGER: TAISHA 09/18/20 145 RPT#: [id number] DC DATE: STATUS: ADM IN [facility] [address] [place] [address] END OF REPORT
--- NOTE | 2020-09-18 15:55 | NUR ---
IV DISCONTINUED AND VERBALZIED UNDERSTANDING OF DISCHARGE INSTRUCTIONS. STABLE AT TIME OF DISCHARGE.
--- NOTE | 2020-09-19 10:14 | MORECARE ---
CASE MANAGEMENT DISCHARGE SUMMARY PATIENT: LANE ONEAL UNIT: [id number] ADM DATE: 09/11/20 AGE: 60 : 62 SEX: F ROOM/BED: D.2240 AUTHOR: MERA,DOC PHYSICIAN: REFERRING PHYSICIAN: PETTY LAY MD DATE OF SERVICE: 09/19/20 Case Management Discharge Planning Summary COMMENTS ENTERED DATE: 09/18/20 14:50 CT COMMENT TYPE: Discharge Planning REVIEWER: Ary Roy CM met with patient at bedside after obtaining verbal consent. CM discussed availability / needs of home health, REHAB and medical equipment. Patient states has oxygen with [employer] and has her portable tank here with her. States no other medical equipment needed. Also states is current with [employer]. IMM signed and we will get her a taxi to home. CM to follow and assist as needed. DCP REVIEW SUMMARY ANTICIPATED D/C DATE: EXPECTED LOS : CASE STATUS: DCP Complete INITIAL REVIEW: 09/10/2020 INITIAL REVIEWER: Ary Roy FINAL DISCHARGE DISPOSITION: : FINAL REVIEWER: FINAL REVIEW DATE: DCP Focus Questions & Answers DCP Screen QUESTION: ANSWER High Risk Factors: : Polypharmacy (greater than 10 meds) DCP Evaluation QUESTION: ANSWER Patient's ability to cope with chronic illness : d. No chronic illness Would patient like to participate in any Care Coordination programs (if applicable): : Not applicable Mental health screen: : No mental health history DCP Re-evaluation QUESTION: ANSWER Would patient like to participate in any Care Coordination programs (if applicable): : Not applicable PATIENT: LANE ONEAL ENCOUNTER: [id number] MEDICAL RECORD#: [id number] ADMISSION DATE: 09/11/2020 DISCHARGE DATE: 09/18/2020 ATTENDING MD: PETTY BOSS : AGE: 60 MARITAL STATUS: D DC PLAN ID: [id number] FACILITY: [facility] PRINTED ON: 09/19/20 10:14 CT All edits/amendments must be made on the electronic document DICTATION DATE: 09/19/20 1014 GLOBAL PROJECT MANAGER: TAISHA 09/19/20 1014 RPT#: [id number] DC DATE:09/18/20 STATUS: DIS IN [facility] [address] [facility] [place] [address] END OF REPORT
--- NOTE | 2020-09-22 11:14 | MORECARE ---
CASE MANAGEMENT DISCHARGE SUMMARY PATIENT: LANE ONEAL UNIT: [id number] ADM DATE: 09/11/20 AGE: 60 : 62 SEX: F ROOM/BED: D.2240 AUTHOR: MERA,DOC PHYSICIAN: REFERRING PHYSICIAN: PETTY LAY MD DATE OF SERVICE: 09/22/20 Case Management Discharge Planning Summary COMMENTS ENTERED DATE: 09/18/20 14:50 CT COMMENT TYPE: Discharge Planning REVIEWER: Ary Roy CM met with patient at bedside after obtaining verbal consent. CM discussed availability / needs of home health, REHAB and medical equipment. Patient states has oxygen with [facility] and has her portable tank here with her. States no other medical equipment needed. Also states is current with [employer]. IMM signed and we will get her a taxi to home. CM to follow and assist as needed. DCP REVIEW SUMMARY ANTICIPATED D/C DATE: EXPECTED LOS : CASE STATUS: DCP Complete INITIAL REVIEW: 09/10/2020 INITIAL REVIEWER: Ary Roy FINAL DISCHARGE DISPOSITION: : FINAL REVIEWER: FINAL REVIEW DATE: DCP Focus Questions & Answers DCP Screen QUESTION: ANSWER High Risk Factors: : Polypharmacy (greater than 10 meds) DCP Evaluation QUESTION: ANSWER Patient's ability to cope with chronic illness : d. No chronic illness Would patient like to participate in any Care Coordination programs (if applicable): : Not applicable Mental health screen: : No mental health history DCP Re-evaluation QUESTION: ANSWER Would patient like to participate in any Care Coordination programs (if applicable): : Not applicable PATIENT: LANE ONEAL ENCOUNTER: [id number] MEDICAL RECORD#: [id number] ADMISSION DATE: 09/11/2020 DISCHARGE DATE: 09/18/2020 ATTENDING MD: PETTY BOSS : AGE: 60 MARITAL STATUS: D DC PLAN ID: [id number] FACILITY: [facility] PRINTED ON: 09/22/20 11:13 CT All edits/amendments must be made on the electronic document DICTATION DATE: 09/22/201112 COAL SCREENER: TAISHA 09/22/20 111 RPT#: [id number] DC DATE:09/18/20 STATUS: DIS IN [facility] [address] [place] [address] END OF REPORT
== END 2020-09-18 15:57 | disposition home health service (06) | DRG 189 ==
LOC: D.ER 00:42 → D.MS 03:28 → D.EDHOLD 03:28 → OBSVTIME 03:29 → D.MS 15:30
PROVIDERS: Emergency Medicine; Family Medicine; ADMIT Emergency Medicine; ATTEND Emergency Medicine
DX: J96.21 Acute and chronic respiratory failure with hypoxia (principal); E43 Unspecified severe protein-calorie malnutrition; J44.1 Chronic obstructive pulmonary disease with (acute) exacerbation; J44.0 Chronic obstructive pulmonary disease with (acute) lower respiratory infection; J96.22 Acute and chronic respiratory failure with hypercapnia; E83.42 Hypomagnesemia; I11.0 Hypertensive heart disease with heart failure; I50.9 Heart failure, unspecified; I48.91 Unspecified atrial fibrillation; Z86.711 Personal history of pulmonary embolism; Z86.718 Personal history of other venous thrombosis and embolism; G47.33 Obstructive sleep apnea (adult) (pediatric); K21.9 Gastro-esophageal reflux disease without esophagitis; K74.60 Unspecified cirrhosis of liver; K27.9 Peptic ulcer, site unspecified, unspecified as acute or chronic, without hemorrhage or perforation; M19.90 Unspecified osteoarthritis, unspecified site; G89.29 Other chronic pain; M54.9 Dorsalgia, unspecified; F41.9 Anxiety disorder, unspecified; F32.9 Major depressive disorder, single episode, unspecified; F43.10 Post-traumatic stress disorder, unspecified; J20.9 Acute bronchitis, unspecified; K57.90 Diverticulosis of intestine, part unspecified, without perforation or abscess without bleeding; F95.2 Tourette's disorder; Z87.891 Personal history of nicotine dependence

== ENCOUNTER 2020-09-26 12:41 | Inpatient (IN) | payer MEDICARE, MEDICAID ==
[~2020-09-26] VITALS: Ht 157.5 cm; Wt 46.3 kg
[2020-09-26 13:59] LABS: BASOPHILS 0.8 % (0-2); EOSINOPHILS 1.3 % (0-7); HEMATOCRIT 38.4 % (36.0-48.0); HEMOGLOBIN 12.4 g/dL (12-16); LYMPHOCYTES 27.3 % (15-50); MCH 28.8 pg (26.0-34.0); MCHC 32.3 g/dL (31.0-37.0); MCV 89.4 fL (80.0-100.0); MEAN PLATELET VOLUME 6.6 fL (7.4-10.4); MONOCYTES 8.6 % (2-11); RBC 4.29 10x6/uL (4.00-5.40); WBC 6.9 10x3/uL (4.8-10.8)
[2020-09-26 14:20] LABS: ALKALINE PHOSPHATASE 115 U/L (30-120); ALT (SGPT) 40 U/L (10-68); BILIRUBIN - TOTAL 0.58 mg/dL (0.2-1.3); CALCIUM 8.8 mg/dL (8.5-10.1); CHLORIDE - SERUM 97 mmol/L (98-107); CKMB 1.1 U/L (0.0-3.6); CREATINE KINASE 26 UL (21-215); CREATININE - SERUM 0.4 mg/dL (0.6-1.3); POTASSIUM - SERUM 3.7 mmol/L (3.5-5.1); PRO BNP 123 pg/mL (0-125); PROTEIN - SERUM 6.4 g/dL (6.4-8.2); SODIUM 138 mmol/L (136-145); UREA NITROGEN 7 mg/dL (7-18); eGFR NON AFRICAN AMERICAN > 90 mL/min (90-120)
[2020-09-26 14:21] LABS: CALC OSMOLALITY 272 mosm/kg (275-300); GLUCOSE 85 mg/dL (74-106); TROPONIN-I < 0.017 ng/mL (0.000-0.060)
[2020-09-26 14:23] LABS: CARBON DIOXIDE 40.4 mmol/L (21.0-32.0); PLATELET COUNT 238 10x3/uL (130-400)
[2020-09-26 14:45] VITALS: BP 117/63
[2020-09-27 02:09] VITALS: BP 104/53
[2020-09-27 04:04] VITALS: BP 117/63; BMI 18.7
[2020-09-27 06:47] VITALS: BP 110/64
[2020-09-27 07:40] VITALS: Ht 157.5 cm; Wt 46.3 kg
[2020-09-27 09:11] VITALS: BP 137/74
--- NOTE | 2020-09-27 09:38 | NUR ---
PATIENT AAOX4, RESP EVEN AND NON LABORED, NO S/S OF DISTRESS, MEDICATIONS ADMINISTERED WITH NO COMPLICATIONS, NO FURTHER NEEDS AT THIS TIME, CLIR, BLP
[2020-09-27 13:39] LABS: BASOPHILS 0 % (0-2); EOSINOPHILS 0 % (0-7); HEMATOCRIT 36.4 % (36.0-48.0); HEMOGLOBIN 11.9 g/dL (12-16); LYMPHOCYTES 8.9 % (15-50); MCH 29.3 pg (26.0-34.0); MCHC 32.7 g/dL (31.0-37.0); MCV 89.8 fL (80.0-100.0); MEAN PLATELET VOLUME 7.1 fL (7.4-10.4); MONOCYTES 8.6 % (2-11); NEUTROPHILS 82.5 % (40-80); PLATELET COUNT 249 10x3/uL (130-400); RBC 4.05 10x6/uL (4.00-5.40); RDW 14.2 % (11.5-14.5); WBC 8.6 10x3/uL (4.8-10.8)
[2020-09-27 14:10] LABS: ALBUMIN 3.3 g/dL (3.4-5.0); ALKALINE PHOSPHATASE 284 U/L (30-120); BILIRUBIN - TOTAL 0.38 mg/dL (0.2-1.3); CHLORIDE - SERUM 95 mmol/L (98-107); DIGOXIN 0.22 ng/mL (0.90-2.00); GLUCOSE 125 mg/dL (74-106); PROTEIN - SERUM 6.2 g/dL (6.4-8.2); SODIUM 138 mmol/L (136-145)
[2020-09-27 14:23] LABS: ALT (SGPT) 119 U/L (10-68); CALC OSMOLALITY 278 mosm/kg (275-300); CREATININE - SERUM 0.6 mg/dL (0.6-1.3); UREA NITROGEN 18 mg/dL (7-18); eGFR NON AFRICAN AMERICAN > 90 mL/min (90-120)
[2020-09-27 14:26] LABS: CARBON DIOXIDE 41.1 mmol/L (21.0-32.0)
--- NOTE | 2020-09-27 15:53 | NUR ---
I have reviewed this patient and I concur with the Shift Assessment completed by the Licensed Practical Nurse today this shift.
[2020-09-27 16:39] VITALS: BP 128/69
--- NOTE | 2020-09-27 16:54 | NUR ---
PATIENT HAS SCD'S IN PLACE
[2020-09-27 20:59] VITALS: BP 127/67
--- NOTE | 2020-09-27 21:46 | NUR ---
PIV TO LEFT AC UNABLE TO FLUSH, DC'D, TIP INTACT. NEW PIV TO RIGHT WRIST, 22G, X1 ATTEMPT, FLUSHES WITHOUT ISSUE. PT TOLERATED WELL.
[2020-09-28] VITALS: BP 125/65
[2020-09-28 04:30] VITALS: BP 148/74
[2020-09-28 05:50] LABS: BASOPHILS 0 % (0-2); EOSINOPHILS 0.1 % (0-7); HEMATOCRIT 38.7 % (36.0-48.0); HEMOGLOBIN 12.3 g/dL (12-16); LYMPHOCYTES 8.5 % (15-50); MCHC 31.9 g/dL (31.0-37.0); MCV 90.9 fL (80.0-100.0); MEAN PLATELET VOLUME 6.9 fL (7.4-10.4); MONOCYTES 1.8 % (2-11); NEUTROPHILS 89.6 % (40-80); PLATELET COUNT 232 10x3/uL (130-400); RBC 4.25 10x6/uL (4.00-5.40); RDW 14.2 % (11.5-14.5); WBC 7.6 10x3/uL (4.8-10.8)
[2020-09-28 06:11] LABS: ALBUMIN 3.2 g/dL (3.4-5.0); ALKALINE PHOSPHATASE 258 U/L (30-120); ALT (SGPT) 94 U/L (10-68); BILIRUBIN - TOTAL 0.31 mg/dL (0.2-1.3); CALCIUM 9.3 mg/dL (8.5-10.1); CHLORIDE - SERUM 96 mmol/L (98-107); CREATININE - SERUM 0.6 mg/dL (0.6-1.3); POTASSIUM - SERUM 5.6 mmol/L (3.5-5.1); PROTEIN - SERUM 6.8 g/dL (6.4-8.2); SODIUM 138 mmol/L (136-145); UREA NITROGEN 17 mg/dL (7-18); eGFR NON AFRICAN AMERICAN > 90 mL/min (90-120)
[2020-09-28 06:45] LABS: CALC OSMOLALITY 283 mosm/kg (275-300); GLUCOSE 210 mg/dL (74-106)
[2020-09-28 08:55] VITALS: BP 133/61
--- NOTE | 2020-09-28 10:15 | NUR ---
SITTING UP IN THE BED WITH O2 ON AT 4L. RIGHT WRIST SEEN WITH SALINE LOCK, ORANGE SWAB CAP IN PLACE. BIPAP AT BEDSIDE. UP TO RESTROOM. WILL MONITOR. DENIES NEEDS AT THIS TIME.
--- NOTE | 2020-09-28 11:08 | NUR ---
WALKED INTO PATIENT ROOM TO GIVE HER MEDICINE AND SHE WAS IN THE RESTRROM. I TOLD HER THAT I SMELLED SMOKE. STATES THAT SHE IS NOT SMOKING. I ASKED HER IF I COULD GO THROUGH HER PURSE AND SHE SAID YES. 1 FULL PACK [place] SEEN UNOPENED, 1 EMPTY PACK AND 1 PACK WITH ONE CIG LEFT IN IT. TAKEN FROM HER AND PLACED AT DESK WITH HER STICKER OF NAME ON THEM.
[2020-09-28 13:03] VITALS: BP 113/68
--- NOTE | 2020-09-28 17:27 | NUR ---
SITTING UP IN THE BED FINISHING SUPPER AND WATCHING TV. DENIES ANY NEEDS AT THIS TIME. CALL LIGHT IS IN USE.
--- NOTE | 2020-09-28 19:22 | NUR ---
CALLED REPORT TO DEIDRE HANSON ON MED SURG.
[2020-09-29 05:52] LABS: BASOPHILS 0 % (0-2); EOSINOPHILS 0 % (0-7); HEMATOCRIT 37.5 % (36.0-48.0); HEMOGLOBIN 12.1 g/dL (12-16); MCH 29.5 pg (26.0-34.0); MCHC 32.3 g/dL (31.0-37.0); MCV 91.2 fL (80.0-100.0); MEAN PLATELET VOLUME 7.1 fL (7.4-10.4); MONOCYTES 7.3 % (2-11); NEUTROPHILS 87.7 % (40-80); PLATELET COUNT 195 10x3/uL (130-400); RBC 4.11 10x6/uL (4.00-5.40); RDW 14.2 % (11.5-14.5)
[2020-09-29 06:53] LABS: ALBUMIN 3.4 g/dL (3.4-5.0); ALKALINE PHOSPHATASE 257 U/L (30-120); BILIRUBIN - TOTAL 0.39 mg/dL (0.2-1.3); CALC OSMOLALITY 281 mosm/kg (275-300); CALCIUM 8.9 mg/dL (8.5-10.1); CHLORIDE - SERUM 92 mmol/L (98-107); CREATININE - SERUM 0.6 mg/dL (0.6-1.3); GLUCOSE 177 mg/dL (74-106); POTASSIUM - SERUM 4.7 mmol/L (3.5-5.1); PROTEIN - SERUM 6.8 g/dL (6.4-8.2); SODIUM 138 mmol/L (136-145); UREA NITROGEN 17 mg/dL (7-18); eGFR NON AFRICAN AMERICAN > 90 mL/min (90-120)
--- NOTE | 2020-09-29 06:55 | NUR ---
AWAKE AND SITTING UP IN BED.PATIENT IS WITHOUT DISTRESS.DOOR OPEN
[2020-09-29 07:30] LABS: ALT (SGPT) 173 U/L (10-68)
[2020-09-29 07:32] LABS: CARBON DIOXIDE 45.6 mmol/L (21.0-32.0)
[2020-09-29 10:27] VITALS: BP 109/55
[2020-09-29 13:00] VITALS: BP 131/58
--- NOTE | 2020-09-29 15:24 | NUR ---
PATIENT MORPHINE D/C IN [facility], SENT [employer] MESSAGE TO SEE IF IT CAN BE RESTARTED, PATIENT REQUEST MEDICATION, TOLD HER I WOULD NEED TO CALL TO GET RESTARTED AND TECHNICALLY NOT ABLE TO GIVE FOR ANOTHER HOUR. NO OTHER NEEDS AT THIS TIME, CONTINUE WITH PLAN OF CARE
[2020-09-29 17:00] VITALS: BP 154/76
[2020-09-29 20:00] VITALS: BP 151/72
[2020-09-30] VITALS: BP 147/76
--- NOTE | 2020-09-30 00:31 | NUR ---
I have reviewed this patient and I concur with the Shift Assessment completed by the Licensed Practical Nurse today this shift.
[2020-09-30 04:00] VITALS: BP 130/64
[2020-09-30 07:45] LABS: BASOPHILS 0.2 % (0-2); EOSINOPHILS 0 % (0-7); HEMATOCRIT 40.7 % (36.0-48.0); HEMOGLOBIN 12.8 g/dL (12-16); LYMPHOCYTES 9.7 % (15-50); MCH 28.7 pg (26.0-34.0); MCHC 31.5 g/dL (31.0-37.0); MCV 91.2 fL (80.0-100.0); MEAN PLATELET VOLUME 7.1 fL (7.4-10.4); MONOCYTES 11.9 % (2-11); NEUTROPHILS 78.2 % (40-80); PLATELET COUNT 205 10x3/uL (130-400); RBC 4.47 10x6/uL (4.00-5.40); RDW 14.3 % (11.5-14.5); WBC 8.1 10x3/uL (4.8-10.8)
[2020-09-30 08:00] LABS: ALBUMIN 3.4 g/dL (3.4-5.0); ALKALINE PHOSPHATASE 277 U/L (30-120); BILIRUBIN - TOTAL 0.52 mg/dL (0.2-1.3); CALC OSMOLALITY 275 mosm/kg (275-300); CHLORIDE - SERUM 92 mmol/L (98-107); CREATININE - SERUM 0.6 mg/dL (0.6-1.3); GLUCOSE 142 mg/dL (74-106); POTASSIUM - SERUM 4.2 mmol/L (3.5-5.1); PROTEIN - SERUM 6.9 g/dL (6.4-8.2); SODIUM 136 mmol/L (136-145); UREA NITROGEN 18 mg/dL (7-18); eGFR NON AFRICAN AMERICAN > 90 mL/min (90-120)
[2020-09-30 08:07] LABS: ALT (SGPT) 357 U/L (10-68)
[2020-09-30 08:08] LABS: CARBON DIOXIDE 51.6 mmol/L (21.0-32.0)
[2020-09-30 08:54] VITALS: BP 138/76
[2020-09-30 13:17] VITALS: BP 137/69
--- NOTE | 2020-09-30 13:40 | NUR ---
Nutrition follow-up: Pt sitting on side of bed eating breakfast; reports good appetite. Diet order: regular PO intake 100% of most meals Labs reviewed Wt: 101# Per nurse, pt is smoking in the bathroom; cigarettes taken away. PO intake good at this time. Will continue to provide food choices and honor food preferences. RDN will reassess pts progress toward nutrition goals in 3-5 days.
[2020-09-30 17:42] VITALS: BP 140/68
[2020-09-30 20:00] VITALS: BP 139/67
[2020-10-01] VITALS: BP 111/65
[2020-10-01 04:00] VITALS: BP 139/66
[2020-10-01 06:28] LABS: ALBUMIN 2.9 g/dL (3.4-5.0); ALKALINE PHOSPHATASE 222 U/L (30-120); ALT (SGPT) 339 U/L (10-68); BILIRUBIN - TOTAL 0.39 mg/dL (0.2-1.3); CALCIUM 8.5 mg/dL (8.5-10.1); CHLORIDE - SERUM 93 mmol/L (98-107); CREATININE - SERUM 0.5 mg/dL (0.6-1.3); POTASSIUM - SERUM 4.1 mmol/L (3.5-5.1); PROTEIN - SERUM 5.5 g/dL (6.4-8.2); SODIUM 134 mmol/L (136-145); UREA NITROGEN 19 mg/dL (7-18); eGFR NON AFRICAN AMERICAN > 90 mL/min (90-120)
[2020-10-01 06:42] LABS: BASOPHILS 0 % (0-2); EOSINOPHILS 0 % (0-7); HEMATOCRIT 33.2 % (36.0-48.0); HEMOGLOBIN 10.6 g/dL (12-16); LYMPHOCYTES 12.9 % (15-50); MCHC 31.9 g/dL (31.0-37.0); MEAN PLATELET VOLUME 7.7 fL (7.4-10.4); MONOCYTES 10.5 % (2-11); NEUTROPHILS 76.6 % (40-80); RBC 3.65 10x6/uL (4.00-5.40)
[2020-10-01 06:46] LABS: PLATELET COUNT 136 10x3/uL (130-400)
[2020-10-01 07:51] LABS: CALC OSMOLALITY 277 mosm/kg (275-300); GLUCOSE 238 mg/dL (74-106)
[2020-10-01 07:52] LABS: CARBON DIOXIDE 50.6 mmol/L (21.0-32.0)
[2020-10-01 09:43] VITALS: BP 146/73
[2020-10-01 14:22] VITALS: BP 101/53
[2020-10-01 17:47] VITALS: BP 132/69
[2020-10-01 20:00] VITALS: BP 120/53
[2020-10-02] VITALS: BP 117/54
[2020-10-02 04:00] VITALS: BP 135/62
[2020-10-02 06:31] LABS: BASOPHILS 0.1 % (0-2); EOSINOPHILS 0 % (0-7); HEMATOCRIT 33.4 % (36.0-48.0); HEMOGLOBIN 10.6 g/dL (12-16); LYMPHOCYTES 12.2 % (15-50); MCH 28.7 pg (26.0-34.0); MCHC 31.7 g/dL (31.0-37.0); MCV 90.8 fL (80.0-100.0); MEAN PLATELET VOLUME 8.3 fL (7.4-10.4); MONOCYTES 11.5 % (2-11); NEUTROPHILS 76.2 % (40-80); PLATELET COUNT 139 10x3/uL (130-400); RBC 3.68 10x6/uL (4.00-5.40); RDW 13.8 % (11.5-14.5); WBC 3.5 10x3/uL (4.8-10.8)
[2020-10-02 06:47] LABS: ALBUMIN 2.6 g/dL (3.4-5.0); ALKALINE PHOSPHATASE 231 U/L (30-120); ALT (SGPT) 420 U/L (10-68); BILIRUBIN - TOTAL 0.37 mg/dL (0.2-1.3); CALCIUM 8.5 mg/dL (8.5-10.1); CHLORIDE - SERUM 96 mmol/L (98-107); CREATININE - SERUM 0.4 mg/dL (0.6-1.3); GLUCOSE 216 mg/dL (74-106); PROTEIN - SERUM 5.4 g/dL (6.4-8.2); SODIUM 137 mmol/L (136-145); eGFR NON AFRICAN AMERICAN > 90 mL/min (90-120)
[2020-10-02 07:31] LABS: CALC OSMOLALITY 284 mosm/kg (275-300); POTASSIUM - SERUM 5.4 mmol/L (3.5-5.1); UREA NITROGEN 24 mg/dL (7-18)
[2020-10-02 07:32] LABS: CARBON DIOXIDE 48.6 mmol/L (21.0-32.0)
--- NOTE | 2020-10-02 07:35 | NUR ---
RECEIVED MESSAGE FROM CHARGE NURSE THAT LAB CALLED AND PT CO2 IS 48, LAB VALUE IMPROVING FROM YESTERDAY'S LAB, PATIENT ON BIPAP DURING BEDISDE REPORT, NO NEEDS AT THIS TIME. CONTINUE WITH PLAN OF CARE
[2020-10-02 09:01] VITALS: BP 154/76
[2020-10-02 14:01] VITALS: BP 161/71
[2020-10-02 16:42] VITALS: BP 116/62
--- NOTE | 2020-10-02 17:32 | NUR ---
I have reviewed this patient and I concur with the Shift Assessment completed by the Licensed Practical Nurse today this shift.
[2020-10-02 20:00] VITALS: BP 136/72
--- NOTE | 2020-10-02 20:09 | NUR ---
PATIENT REQUESTED PAIN MEDICATION AND MEDICATION HAD FALLEN OFF JUN, PAGED ONCALL TO HAVE RESTARTED, NO OTHER NEEDS AT THIS TIME. CONTINUE WITH PLAN OF CARE
[2020-10-03 00:13] VITALS: BP 134/64
[2020-10-03 04:35] VITALS: BP 130/70
--- NOTE | 2020-10-03 05:33 | NUR ---
I have reviewed this patient and I concur with the Shift Assessment completed by the Licensed Practical Nurse today this shift.
[2020-10-03 07:05] LABS: BASOPHILS 0.1 % (0-2); EOSINOPHILS 0.1 % (0-7); LYMPHOCYTES 11.7 % (15-50); MCH 28.8 pg (26.0-34.0); MCHC 31.7 g/dL (31.0-37.0); MCV 90.8 fL (80.0-100.0); MEAN PLATELET VOLUME 7.3 fL (7.4-10.4); MONOCYTES 10.5 % (2-11); NEUTROPHILS 77.6 % (40-80); RBC 4.18 10x6/uL (4.00-5.40); RDW 14.1 % (11.5-14.5)
[2020-10-03 07:12] LABS: PLATELET COUNT 186 10x3/uL (130-400); WBC 6.6 10x3/uL (4.8-10.8)
[2020-10-03 07:42] LABS: ALKALINE PHOSPHATASE 273 U/L (30-120); BILIRUBIN - TOTAL 0.45 mg/dL (0.2-1.3); CALCIUM 8.9 mg/dL (8.5-10.1); CHLORIDE - SERUM 93 mmol/L (98-107); CREATININE - SERUM 0.5 mg/dL (0.6-1.3); POTASSIUM - SERUM 5.1 mmol/L (3.5-5.1); PROTEIN - SERUM 6.1 g/dL (6.4-8.2); SODIUM 137 mmol/L (136-145); UREA NITROGEN 22 mg/dL (7-18); eGFR NON AFRICAN AMERICAN > 90 mL/min (90-120)
[2020-10-03 07:54] LABS: CALC OSMOLALITY 278 mosm/kg (275-300); GLUCOSE 127 mg/dL (74-106)
[2020-10-03 07:57] LABS: ALT (SGPT) 555 U/L (10-68); CARBON DIOXIDE 48.5 mmol/L (21.0-32.0)
--- NOTE | 2020-10-03 08:05 | NUR ---
CRITICAL LAB RECEIVED FOR CO2 48.5, DOWN FROM PREVIOUS DAYS
[2020-10-03 09:14] VITALS: BP 144/81
[2020-10-03 12:00] VITALS: BP 152/68
--- NOTE | 2020-10-03 12:58 | NUR ---
Nutrition reassessment: Diet order: Regular as tolerated; offering nutritional supplements. +BM Estimated needs: 2264-0955 kcal Protein: 45-60 Fluids: 2388-8589 Nutrition diagnosis, nutrition goals, nutrition interventions; pt currently meeting nutrition goals. Pt sitting on side of bed eating breakfast; reports good appetite. Diet order: regular PO intake 75-100% of most meals Labs reviewed Wt: 102# PO intake good at this time. Will continue to provide food choices and honor food preferences. RDN will reassess pts progress toward nutrition goals in 3-5 days.
[2020-10-03 16:55] VITALS: BP 131/62
[2020-10-03 20:00] VITALS: BP 151/77
[2020-10-04 05:40] LABS: BASOPHILS 0 % (0-2); EOSINOPHILS 0 % (0-7); HEMATOCRIT 33.6 % (36.0-48.0); HEMOGLOBIN 10.6 g/dL (12-16); LYMPHOCYTES 7.8 % (15-50); MCH 29.3 pg (26.0-34.0); MCHC 31.4 g/dL (31.0-37.0); MEAN PLATELET VOLUME 8.1 fL (7.4-10.4); MONOCYTES 3.9 % (2-11); NEUTROPHILS 88.3 % (40-80); PLATELET COUNT 166 10x3/uL (130-400); RBC 3.61 10x6/uL (4.00-5.40); RDW 14.2 % (11.5-14.5)
[2020-10-04 05:50] LABS: MCV 93.1 fL (80.0-100.0); WBC 3.3 10x3/uL (4.8-10.8)
[2020-10-04 05:55] LABS: ALBUMIN 2.6 g/dL (3.4-5.0); ALKALINE PHOSPHATASE 238 U/L (30-120); ALT (SGPT) 493 U/L (10-68); CALCIUM 8.4 mg/dL (8.5-10.1); CHLORIDE - SERUM 91 mmol/L (98-107); CREATININE - SERUM 0.6 mg/dL (0.6-1.3); POTASSIUM - SERUM 5.4 mmol/L (3.5-5.1); PROTEIN - SERUM 5.4 g/dL (6.4-8.2); SODIUM 132 mmol/L (136-145); UREA NITROGEN 22 mg/dL (7-18); eGFR NON AFRICAN AMERICAN > 90 mL/min (90-120)
[2020-10-04 05:56] LABS: CALC OSMOLALITY 288 mosm/kg (275-300); GLUCOSE 476 mg/dL (74-106)
[2020-10-04 05:57] LABS: CARBON DIOXIDE 44.8 mmol/L (21.0-32.0)
--- NOTE | 2020-10-04 07:36 | NUR ---
IN BED RESTING. BED LOW POSITION, CALL LIGHT IN REACH. FREE FROM SIGNS OF DISTRESS. WILL CONTINUE TO MONITOR.
[2020-10-04 08:37] VITALS: BP 144/68
[2020-10-04 11:17] VITALS: BP 169/80
[2020-10-04 16:23] VITALS: BP 132/71
[2020-10-04 20:00] VITALS: BP 156/83; BP 165/83
--- NOTE | 2020-10-05 02:22 | NUR ---
PT AWAKE REFUSED TO WEAR BIPAP
[2020-10-05 04:00] VITALS: BP 121/75
[2020-10-05 04:55] LABS: BASOPHILS 0 % (0-2); EOSINOPHILS 0 % (0-7); HEMATOCRIT 33.3 % (36.0-48.0); HEMOGLOBIN 10.8 g/dL (12-16); LYMPHOCYTES 9.8 % (15-50); MCH 29.1 pg (26.0-34.0); MCHC 32.4 g/dL (31.0-37.0); NEUTROPHILS 79.2 % (40-80); RBC 3.71 10x6/uL (4.00-5.40)
[2020-10-05 04:58] LABS: MCV 89.8 fL (80.0-100.0); PLATELET COUNT 220 10x3/uL (130-400); WBC 5.4 10x3/uL (4.8-10.8)
[2020-10-05 05:13] LABS: ALBUMIN 2.8 g/dL (3.4-5.0); ALKALINE PHOSPHATASE 224 U/L (30-120); ALT (SGPT) 394 U/L (10-68); BILIRUBIN - TOTAL 0.44 mg/dL (0.2-1.3); CALCIUM 8.7 mg/dL (8.5-10.1); CHLORIDE - SERUM 90 mmol/L (98-107); CREATININE - SERUM 0.6 mg/dL (0.6-1.3); POTASSIUM - SERUM 4.7 mmol/L (3.5-5.1); PROTEIN - SERUM 5.6 g/dL (6.4-8.2); SODIUM 131 mmol/L (136-145); UREA NITROGEN 25 mg/dL (7-18); eGFR NON AFRICAN AMERICAN > 90 mL/min (90-120)
[2020-10-05 05:40] LABS: CALC OSMOLALITY 280 mosm/kg (275-300); GLUCOSE 345 mg/dL (74-106)
[2020-10-05 08:27] VITALS: BP 146/75
[2020-10-05 12:54] VITALS: BP 113/49
[2020-10-05 16:43] VITALS: BP 144/65
--- NOTE | 2020-10-05 18:28 | MORECARE ---
CASE MANAGEMENT DISCHARGE SUMMARY PATIENT: LANE ONEAL UNIT: [id number] ADM DATE: 09/26/20 AGE: 60 : 62 SEX: F ROOM/BED: D.2217 AUTHOR: MERA,DOC PHYSICIAN: REFERRING PHYSICIAN: LORI REBOLLEDO MD DATE OF SERVICE: 10/05/20 Case Management Discharge Planning Summary COMMENTS ENTERED DATE: 10/05/20 18:24 CT COMMENT TYPE: Discharge Planning REVIEWER: David Zaragoza CM met with patient to complete DC plan and to evaluate needs. Patient stated that she readmitted because she couldn't breathe. Patient stated that she was able to obtain most of her medications after last discharge but some are still too expensive. Patient stated that she was able to keep her follow up appointments. Patient stated that she followed the dc instructions given to her. It appears that this readmission was due to an exacerbation of chronic condition. Patient lived independently with her mother, Nadia Lin, but now conditions have changed and she now states that she and her mother will live with her brother, Jerome Redd, . The patient stated that if she cannot live with her brother then she and her mother will have to live with a cousin but it is not likely. Patient has continued attempting to reach her brother for several hours today at 's request. Patient stated that she believes her brother is resting today and will speak with her tonight. Patient stated that her brother's home is safe and has electricity and running water. Patient stated that she has some problems paying for some of her medications but she did not elaborate. Patient stated that she fills her medications at [facility]. Patient stated that her primary care physician is Dr. Karimi. CM discussed availability of home health, rehab services, and medical equipment. Patient declined SNF, IPR, and DME but would like HHS with a [employer] that services the [facility]. Patient choice of HHS will depend on her living arrangement so no HHS choice has been made. Patient stated that she has home oxygen through [facility] and has a walker and Trilogy machine. Patient voiced no other needs at this time and is satisfied with DC plan. Transportation provider at discharge will be with her brother, Jerome. CM will continue to follow and will assist as needed with dc plans/needs. DCP REVIEW SUMMARY ANTICIPATED D/C DATE: EXPECTED LOS : CASE STATUS: DCP Initiated INITIAL REVIEW: 09/26/2020 INITIAL REVIEWER: David Zaragoza FINAL DISCHARGE DISPOSITION: : FINAL REVIEWER: FINAL REVIEW DATE: DCP Focus Questions & Answers DCP Evaluation QUESTION: ANSWER Family / Caregiver's ability to cope with chronic illness: : b. Minimal (occasionally not dependable to meet pt's. needs, can meet pt's. basic ADL's) Patient gives permission to discuss discharge plans with: (name, relationship and number) : motherNadia, Patient's ability to cope with chronic illness : d. No chronic illness Patient's current cognitive status: : *Oriented to person, place, situation, time and present Patient and/or caregiver agree upon recommended discharge plan? : Yes Physical Status: : Independent with ADL's Family / Caregiver's ability to cope with chronic illness: : b. Minimal (occasionally not dependable to meet pt's. needs, can meet pt's. basic ADL's) Functional screen assessment: : Basic needs can adequately be met by self Does the patient have the ability to pay for or attain post discharge needs / services? : Yes Living Arrangements: : Home with Extended Family Is there a likelihood that the patient will require additional services to return to the preadmission environment? : Yes Equipment needed for post hospitalization: : None Baseline cognitive status: : *Oriented to person, place, situation, time and present Patient with capacity for self-care or can be cared for in same environment as prior to hospitalization? : No Physical environment modification needed / anticipated for discharge: : No Medication Management: : Patient states cannot afford medications Medication Management: : Patient states can read and understand medication labels Pharmacy name(s): : [facility] Does Patient have transportation to get home and to follow-up medical appointments when discharged from the hospital? : No Would patient like to participate in any Care Coordination programs (if applicable): : Not applicable Does the patient have electricity at home? : Yes Does the patient have running water in their house? : Yes Equipment in use: : Home Oxygen with Nasal Cannula Equipment in use: : Ventilator (home) Equipment in use: : Walker - Rolling Other Equipment comments: : Trilogy Equipment agency name and contact information: : [facility] Mental health screen: : No mental health history DCP Re-evaluation QUESTION: ANSWER Would patient like to participate in any Care Coordination programs (if applicable): : Not applicable PATIENT: LANE ONEAL ENCOUNTER: [id number] MEDICAL RECORD#: [id number] ADMISSION DATE: 09/26/2020 DISCHARGE DATE: ATTENDING MD: LORI AGUAYO : AGE: 60 MARITAL STATUS: D DC PLAN ID: [id number] FACILITY: [facility] PRINTED ON: 10/05/20 18:28 CT All edits/amendments must be made on the electronic document DICTATION DATE: 10/05/201827 PLATE FILLER: TAISHA 10/05/201827 RPT#: [id number] DC DATE: STATUS: ADM IN [facility] [address] [place] [address] END OF REPORT
[2020-10-05 20:00] VITALS: BP 152/79
[2020-10-06 04:00] VITALS: BP 126/77
[2020-10-06 06:12] LABS: BASOPHILS 0 % (0-2); EOSINOPHILS 0 % (0-7); HEMATOCRIT 34.3 % (36.0-48.0); HEMOGLOBIN 11.1 g/dL (12-16); LYMPHOCYTES 8.5 % (15-50); MCH 28.8 pg (26.0-34.0); MCHC 32.3 g/dL (31.0-37.0); MCV 89.1 fL (80.0-100.0); MEAN PLATELET VOLUME 7.7 fL (7.4-10.4); MONOCYTES 6.9 % (2-11); NEUTROPHILS 84.6 % (40-80); PLATELET COUNT 240 10x3/uL (130-400); RBC 3.85 10x6/uL (4.00-5.40); RDW 14.1 % (11.5-14.5); WBC 4.9 10x3/uL (4.8-10.8)
[2020-10-06 06:26] LABS: ALBUMIN 2.4 g/dL (3.4-5.0); ALKALINE PHOSPHATASE 207 U/L (30-120); BILIRUBIN - TOTAL 0.27 mg/dL (0.2-1.3); CALC OSMOLALITY 288 mosm/kg (275-300); CALCIUM 8.2 mg/dL (8.5-10.1); CHLORIDE - SERUM 94 mmol/L (98-107); CREATININE - SERUM 0.5 mg/dL (0.6-1.3); GLUCOSE 306 mg/dL (74-106); POTASSIUM - SERUM 4.5 mmol/L (3.5-5.1); PROTEIN - SERUM 5.1 g/dL (6.4-8.2); SODIUM 136 mmol/L (136-145); UREA NITROGEN 27 mg/dL (7-18); eGFR NON AFRICAN AMERICAN > 90 mL/min (90-120)
[2020-10-06 06:39] LABS: ALT (SGPT) 293 U/L (10-68)
[2020-10-06 06:41] LABS: CARBON DIOXIDE 42.6 mmol/L (21.0-32.0)
--- NOTE | 2020-10-06 07:10 | NUR ---
REC'D IN BED WITH NO DISTRESS NOTED. RESP EVEN AND UNLABORED AT THIS TIME. CAN MAKE NEEDS AND WANTS KNOWN. NO C/O NOTED OR VOICED. ASSESSMENT COMPLETED. C/L IN REACH AT BEDSIDE.
[2020-10-06 08:25] VITALS: BP 132/73
[2020-10-06] MEDS ORDERED: Saline Mist NASAL SP NASAL (11:39)
[2020-10-06] MEDS ORDERED: PREDNISONE10 MG PO (11:40)
[2020-10-06] MEDS ORDERED: LIDODERM 5 %1 PATCH TRANSDERM (11:40)
[2020-10-06] MEDS ORDERED: GLIPIZIDE5 MG PO (11:41)
[2020-10-06] MEDS ORDERED: PERCOCET 10-321 EAC1 PO (11:44)
[2020-10-06 12:36] VITALS: BP 122/59
--- NOTE | 2020-10-06 13:47 | MORECARE ---
CASE MANAGEMENT DISCHARGE SUMMARY PATIENT: LANE ONEAL UNIT: [id number] ADM DATE: 09/26/20 AGE: 60 : 62 SEX: F ROOM/BED: D.2727 AUTHOR: MERA,DOC PHYSICIAN: REFERRING PHYSICIAN: LORI REBOLLEDO MD DATE OF SERVICE: 10/06/20 Case Management Discharge Planning Summary COMMENTS ENTERED DATE: 10/06/20 13:28 CT COMMENT TYPE: Discharge Planning REVIEWER: Deena Menendez CM met with patient. She states she spoke with her brother earlier today and he is picking her and her mother up after he gets done with his farming. She uses [facility] for her oxygen, I spoke with Jeffrey from [facility] and he is going to drop her off enough tanks to take to [place]. She will be living with her brother at [address] in [facility]. Jeffrey states the patient is to take her concentrator with her. I informed patient and she states they will be able to take it with her in her brother's vehicle. I gave her the number to [facility] if transport is needed to be set up for appointments. She states she is going to have an appointment with a new physician in [facility] where she is moving. She declines home health. States "I don't need it." States when she gets established with her new doctor if she needs home health, she will have her PCP order it. Refusal for home health signed. I attempted to call her brother without an answer and no voice mail is set up. CM will continue to follow and assist with discharge planning/needs. ENTERED DATE: 10/05/20 18:24 CT COMMENT TYPE: Discharge Planning REVIEWER: David Zaragoza CM met with patient to complete DC plan and to evaluate needs. Patient stated that she readmitted because she couldn't breathe. Patient stated that she was able to obtain most of her medications after last discharge but some are still too expensive. Patient stated that she was able to keep her follow up appointments. Patient stated that she followed the dc instructions given to her. It appears that this readmission was due to an exacerbation of chronic condition. Patient lived independently with her mother, Nadia Lin, but now conditions have changed and she now states that she and her mother will live with her brother, Jerome Redd, . The patient stated that if she cannot live with her brother then she and her mother will have to live with a cousin but it is not likely. Patient has continued attempting to reach her brother for several hours today at 's request. Patient stated that she believes her brother is resting today and will speak with her tonight. Patient stated that her brother's home is safe and has electricity and running water. Patient stated that she has some problems paying for some of her medications but she did not elaborate. Patient stated that she fills her medications at [facility]. Patient stated that her primary care physician is Dr. Karimi. CM discussed availability of home health, rehab services, and medical equipment. Patient declined SNF, IPR, and DME but would like HHS with a [employer] that services the [facility]. Patient choice of HHS will depend on her living arrangement so no HHS choice has been made. Patient stated that she has home oxygen through [facility] and has a walker and Trilogy machine. Patient voiced no other needs at this time and is satisfied with DC plan. Transportation provider at discharge will be with her brother, Jerome. CM will continue to follow and will assist as needed with dc plans/needs. DCP REVIEW SUMMARY ANTICIPATED D/C DATE: EXPECTED LOS : CASE STATUS: DCP Initiated INITIAL REVIEW: 09/26/2020 INITIAL REVIEWER: David Zaragoza FINAL DISCHARGE DISPOSITION: : FINAL REVIEWER: FINAL REVIEW DATE: DCP Focus Questions & Answers DCP Evaluation QUESTION: ANSWER Patient's ability to cope with chronic illness : d. No chronic illness Patient gives permission to discuss discharge plans with: (name, relationship and number) : mother, Nadia Lin, Patient and/or caregiver agree upon recommended discharge plan? : Yes Family / Caregiver's ability to cope with chronic illness: : b. Minimal (occasionally not dependable to meet pt's. needs, can meet pt's. basic ADL's) Patient's current cognitive status: : *Oriented to person, place, situation, time and present Family / Caregiver's ability to cope with chronic illness: : b. Minimal (occasionally not dependable to meet pt's. needs, can meet pt's. basic ADL's) Physical Status: : Independent with ADL's Does the patient have the ability to pay for or attain post discharge needs / services? : Yes Functional screen assessment: : Basic needs can adequately be met by self Living Arrangements: : Home with Extended Family Equipment needed for post hospitalization: : None Is there a likelihood that the patient will require additional services to return to the preadmission environment? : Yes Baseline cognitive status: : *Oriented to person, place, situation, time and present Patient with capacity for self-care or can be cared for in same environment as prior to hospitalization? : No Physical environment modification needed / anticipated for discharge: : No Medication Management: : Patient states can read and understand medication labels Medication Management: : Patient states cannot afford medications Pharmacy name(s): : [facility] [place] Does Patient have transportation to get home and to follow-up medical appointments when discharged from the hospital? : No Would patient like to participate in any Care Coordination programs (if applicable): : Not applicable Does the patient have electricity at home? : Yes Does the patient have running water in their house? : Yes Equipment in use: : Walker - Rolling Equipment in use: : Ventilator (home) Equipment in use: : Home Oxygen with Nasal Cannula Other Equipment comments: : Trilogy Equipment agency name and contact information: : [facility] screen: : No mental health history DCP Re-evaluation QUESTION: ANSWER Would patient like to participate in any Care Coordination programs (if applicable): : Not applicable PATIENT: LANE ONEAL ENCOUNTER: [id number] MEDICAL RECORD#: [id number] ADMISSION DATE: 09/26/2020 DISCHARGE DATE: ATTENDING MD: LORI AGUAYO : AGE: 60 MARITAL STATUS: D DC PLAN ID: [id number] FACILITY: [facility] PRINTED ON: 10/06/20 13:47 CT All edits/amendments must be made on the electronic document DICTATION DATE: 10/06/201346 CORPORATE COMMUNICATIONS ASSOCIATE: TAISHA 10/06/20 1347 RPT#: [id number] DC DATE: STATUS: ADM IN [facility] [address] [place] [address] END OF REPORT
[2020-10-06 20:00] VITALS: BP 151/73
[2020-10-07] VITALS: BP 102/55
[2020-10-07 05:19] LABS: BASOPHILS 0.2 % (0-2); EOSINOPHILS 0 % (0-7); HEMOGLOBIN 11.3 g/dL (12-16); LYMPHOCYTES 11.1 % (15-50); MCH 28.8 pg (26.0-34.0); MCHC 32.2 g/dL (31.0-37.0); MCV 89.5 fL (80.0-100.0); MEAN PLATELET VOLUME 7.5 fL (7.4-10.4); MONOCYTES 12.1 % (2-11); NEUTROPHILS 76.6 % (40-80); PLATELET COUNT 287 10x3/uL (130-400); RBC 3.91 10x6/uL (4.00-5.40); RDW 14.2 % (11.5-14.5)
[2020-10-07 05:21] LABS: WBC 7.4 10x3/uL (4.8-10.8)
[2020-10-07 06:27] LABS: ALBUMIN 2.5 g/dL (3.4-5.0); ALKALINE PHOSPHATASE 195 U/L (30-120); ALT (SGPT) 288 U/L (10-68); BILIRUBIN - TOTAL 0.23 mg/dL (0.2-1.3); CALCIUM 8.4 mg/dL (8.5-10.1); CHLORIDE - SERUM 97 mmol/L (98-107); CREATININE - SERUM 0.6 mg/dL (0.6-1.3); POTASSIUM - SERUM 4.5 mmol/L (3.5-5.1); PROTEIN - SERUM 5.1 g/dL (6.4-8.2); SODIUM 138 mmol/L (136-145); UREA NITROGEN 30 mg/dL (7-18); eGFR NON AFRICAN AMERICAN > 90 mL/min (90-120)
[2020-10-07 06:36] LABS: CALC OSMOLALITY 288 mosm/kg (275-300); GLUCOSE 233 mg/dL (74-106)
[2020-10-07 06:41] LABS: CARBON DIOXIDE 42.3 mmol/L (21.0-32.0)
--- NOTE | 2020-10-07 08:38 | NUR ---
PT SITTING UP IN BED. RR LABORED. MORNING MEDS GIVEN AT THIS TIME. ALL NEEDS MET AT THIS TIME CLWR.
--- NOTE | 2020-10-07 10:12 | NUR ---
PT TAKEN OUT VIA W/C TO [facility] WITH ALL PERSONAL BELONGINGS FOR DISCHARGE. PERSONAL O2 PORTABLE TANK IN PLACE O2 ON.
== END 2020-10-07 10:10 | disposition home or self-care (01) | DRG 189 ==
LOC: D.ER 12:41 → D.EDHOLD 14:17 → D.MS 14:17 → D.M2 17:41 → D.MS 09-28 19:28
PROVIDERS: Family Medicine; ADMIT Emergency Medicine; ATTEND Emergency Medicine
PROC: 5A09357 Assistance with Respiratory Ventilation, Less than 24 Consecutive Hours, Continuous Positive Airway Pressure (ICD-10-PCS; principal; 2020-09-26)
DX: J96.21 Acute and chronic respiratory failure with hypoxia (principal); E43 Unspecified severe protein-calorie malnutrition; J44.1 Chronic obstructive pulmonary disease with (acute) exacerbation; Z68.1 Body mass index [BMI] 19.9 or less, adult; J44.0 Chronic obstructive pulmonary disease with (acute) lower respiratory infection; J96.22 Acute and chronic respiratory failure with hypercapnia; Z99.81 Dependence on supplemental oxygen; G47.33 Obstructive sleep apnea (adult) (pediatric); I48.91 Unspecified atrial fibrillation; K21.9 Gastro-esophageal reflux disease without esophagitis; I10 Essential (primary) hypertension; M19.90 Unspecified osteoarthritis, unspecified site; G89.29 Other chronic pain; M54.9 Dorsalgia, unspecified; F41.8 Other specified anxiety disorders; K57.90 Diverticulosis of intestine, part unspecified, without perforation or abscess without bleeding; K58.9 Irritable bowel syndrome, unspecified; E09.9 Drug or chemical induced diabetes mellitus without complications; T38.0X5A Adverse effect of glucocorticoids and synthetic analogues, initial encounter; J20.9 Acute bronchitis, unspecified; Z86.718 Personal history of other venous thrombosis and embolism; Z87.891 Personal history of nicotine dependence; F41.9 Anxiety disorder, unspecified; F32.9 Major depressive disorder, single episode, unspecified